=== PATIENT | female | born 1955 | race Caucasian/White ===

== ENCOUNTER 2016-08-17 18:16 | Inpatient (IN) | payer MEDICAID ==
[~2016-08-17] VITALS: Ht 144.8 cm; Wt 73.0 kg
[~2016-08-17 18:16] MED LIST: ARTI99.0 OU; ATOR1TAB19 PO; CALC250T PO; CALCTAB88 PO; ENAL10TA2 PO; FERR325T PO; GABA300C3 PO; HYDR25TAB PO; IRON325T PO; KEFL500C7 PO; MELO7.5T6 PO; METF1000 PO; PANT20TA PO; PERC5TAB6 PO; POTA10TAB PO; PRAV40TA2 PO; TYLE650T25 PO; VITA-122 PO; [UNRECOGNIZED DRUG - CODE] PO
[2016-08-17] MEDS ORDERED: MORPHINE 4 MG/ML 1ML SYRINGE As Ordered ONE ×2 (18:35→21:18)
[2016-08-17] MEDS ORDERED: ONDANSETRON 4MG/2ML VIAL (J2405) As Ordered ONE (18:35)
[2016-08-17 18:36] LABS: BASO % 0.3 % (0.0-1.0); EOS # 0.1 K/mm3 (0.0-0.50); EOS % 1.2 % (0.0-3.0); LARGE UNSTAINED CELL # 0.2 K/mm3 (0.0-0.4); LYMPH # 1.1 K/mm3 (1.5-4.5); LYMPH % 10.9 % (24.0-44.0); MEAN CORPUSCULAR HEMOGLOBIN 30.5 pg (27.0-33.0); MEAN CORPUSCULAR HGB CONC 34.9 g/dl (32.0-36.5); MEAN CORPUSCULAR VOLUME 87.3 fl (80.0-96.0); MONO # 0.3 K/mm3 (0.0-0.8); MONO % 2.8 % (0.0-5.0); NEUTROPHILS # 8.1 K/mm3 (1.8-7.7); NEUTROPHILS % 82.9 % (36.0-66.0); PLATELET COUNT, AUTOMATED 287 k/mm3 (150-450); RED CELL DISTRIBUTION WIDTH 14.2 % (11.5-14.5); WHITE BLOOD COUNT 9.8 K/mm3 (4.0-10.0)
[2016-08-17 18:43] LABS: INR 0.94
[2016-08-17 19:00] LABS: ALBUMIN 4.1 GM/DL (3.2-5.2); ALBUMIN/GLOBULIN RATIO 1.58 (1.00-1.93); ALKALINE PHOSPHATASE 86 U/L (45-117); ALT/SGPT 22 U/L (12-78); AMYLASE 43 U/L (25-115); ANION GAP 15 MEQ/L (8-16); AST/SGOT 15 U/L (15-37); BILIRUBIN,DIRECT 0.2 MG/DL (0.0-0.2); BILIRUBIN,TOTAL 0.8 MG/DL (0.2-1.0); BLOOD UREA NITROGEN 15 MG/DL (7-18); CALCIUM LEVEL 9.1 MG/DL (8.8-10.2); CARBON DIOXIDE LEVEL 24 MEQ/L (21-32); CHLORIDE LEVEL 101 MEQ/L (98-107); CREATININE FOR GFR 0.83 MG/DL (0.55-1.02); GLOMERULAR FILTRATION RATE > 60.0 (>45); GLUCOSE, FASTING 167 MG/DL (80-110); POTASSIUM SERUM 4.1 MEQ/L (3.5-5.1); SODIUM LEVEL 140 MEQ/L (136-145); TOTAL PROTEIN 6.7 GM/DL (6.4-8.2)
--- NOTE | 2016-08-17 19:28 | REP ---
Clinical: Epigastric and abdominal pain. Technique: Upright view of the chest with supine and upright views of the abdomen and pelvis. Findings: Frontal upright view of the chest demonstrates no acute cardiopulmonary process or free air below the diaphragm to suspect pneumoperitoneum. Supine and upright views of the abdomen and pelvis demonstrate nonspecific bowel gas pattern without obstruction or perforation. No organomegaly. Calcifications suggesting nephrolithiasis. Skeletal structures normal for age. Impression: Nonspecific bowel gas pattern. Nephrolithiasis. Signed by Charlie Ugarte MD 08/17/2016 07:19 P
[2016-08-17] MEDS ORDERED: GASTROGRAFIN SOLUTION 30ML (Q9963) As Ordered ONE (20:10)
[2016-08-17] MEDS ORDERED: ISOVUE-370 76% 100ML VIAL (Q9967) As Ordered ONE (21:50)
--- NOTE | 2016-08-17 23:20 | REPUSA ---
CLINICAL HISTORY: Abdominal pain. TECHNIQUE: CT abdomen and pelvis following administration of IV contrast. COMPARISON: July 18, 2016. CT ABDOMEN WITH CONTRAST: Lung bases: No lung base infiltrate or effusion. Liver: No intrahepatic ductal dilation. Gallbladder: Normally distended. Pancreas: No pancreatic duct dilation. Bowel loops: Several loops of small bowel in the right midabdomen on axial images 73-95, are mildly d ilated at 3.2 cm, with adjacent ascites, suggesting ileus. However, the etiology of the inflammatory change is uncertain. Spleen: Normal size. Adrenals: Normal size. Kidneys: There are nonobstructive stones of both kidneys . There is no hydronephrosis bilaterally. Aorta: Normal caliber. Peritoneum: No free air. CT PELVIS WITH CONTRAST: Colon: Multiple colonic diverticula without evidence of diverticulitis. Appendix: Normal appendix is seen. Bladder: Normally distended. Pelvic organs: Unremarkable. Peritoneum: No fluid. Skeleton: No acute findings. IMPRESSION: 1. Ileus versus partial small bowel obstruction within the distal small bowel loops of the right abdo men, possibly due to inflammatory bowel disease or other inflammatory etiologies. There is mild assoc iated ascites. Similar findings were described on the July 18 exam. 2. Bilateral nephrolithiasis without hydronephrosis.
[2016-08-18] MEDS ORDERED: HYDROmorphone HCL 1 MG/ML SYRINGE (J1170) As Ordered ONE (00:09)
[2016-08-18] MEDS ORDERED: CIPROFLOXACIN 400 MG in APPROPRIATE DILUENT 1 EA IV SCH (01:45)
--- NOTE | 2016-08-18 01:51 | HPEPDOC ---
General Date of Admission 08/18/16 Chief Complaint The patient is a 60-year-old female admitted with a reason for visit of Abd Pain. History of Present Illness This is a 60-year-old female with past medical history of anemia, arthritis, diabetes mellitus, dyslipidemia, hypertension, kidney stones, small bowel obstruction is here with abdominal pain with nausea. Patient was recently admitted about a week ago for partial small bowel obstruction. Patient did not require any surgical intervention at the time, NG tube was placed initially and later patient tolerated the diet well and was discharged. T his time patient comes with the similar complaints of abdominal pain along with nausea IN her RUQ, colicky in nature and same as before. pain is constant for about 16 hours but for the last few hours is been getting worse. Patient is able to tolerate water however she has not eaten anything for 16 hours. No fever or chills. No diarrhea. Patient does move gas and had a regular bowel movement yesterday. Denies any fever or chills. Home Medications Scheduled (Calcium Citrate + 315-200 mg-Unit) 1 Tab Tab 2 TAB PO BID (Reported) Atorvastatin Calcium (Atorvastatin Calcium) 10 Mg Tab 10 MG PO QHS (Reported) Cholecalciferol (Vitamin D3) 1,000 Unit Tab 1,000 UNIT PO DAILY (Reported) Cimicifuga [place] (Black Coh (Remifemin) 20 Mg Tab 20 MG PO BID (Reported) Enalapril Maleate (Enalapril Maleate) 10 Mg Tab 10 MG PO DAILY (Reported) Ferrous Sulfate (Ferrous Sulfate) 325 Mg Tab 325 MG PO BID (Reported) Gabapentin (Gabapentin) 300 Mg Cap 300 MG PO TID (Reported) Hydrochlorothiazide (Hydrochlorothiazide) 25 Mg Tab 25 MG PO DAILY (Reported) Meloxicam (Meloxicam) 7.5 Mg Tab 7.5 MG PO DAILY (Reported) Metformin Hydrochloride (Metformin HCl) 1,000 Mg Tab 1,000 MG PO BID (Reported ) Pantoprazole Sodium (Pantoprazole Sodium) 20 Mg Tab 20 MG PO DAILY (Reported) Potassium Citrate (Potassium Citrate 10MEQ (Urocit-K)) 1,080 Mg Tab 1,080 MG PO TID (Reported) 1080MG = 10MEQ Allergies Coded Allergies: Ciprofloxacin (Verified Allergy, Unknown, 08/17/16) Rash Diazepam (Unverified Allergy, Unknown, Aggitation/Anxiousness, 08/17/16) Rofecoxib (Verified Allergy, Unknown, patient doesn't remember reaction, ) Tomato (Unverified Allergy, Unknown, 07/18/16) Indomethacin (Verified Adverse Reaction, Intermediate, increased blood pressure, 11/22/15) Past Medical History Medical History anemia, arthritis, diabetes mellitus, dyslipidemia, hypertension, kidney stones , small bowel obstruction is here with abdominal pain with nausea. Surgical History kidney stone removal. Family History Significant Family History: No pertinent family hx Social History * Smoker: non-smoker Alcohol: denies Drugs: denies Recent Travel/Sick Contacts: Denies: Recent sick contacts, Recent travel Psychosocial History: No pertinent psych hx Review of Symptoms Constitutional: Denies: Chills, Fatigue, Fever, Lethargy, Malaise, Night Sweats , Other, Weakness, Weight Loss Eyes: Denies: Conjunctivae inflammation, Eyelid inflammation, Other, Pain, Redness, Vision change ENT: Denies: Dysphagia, Ear Pain, Epistaxis, Head Aches, Other Symptoms, Post Nasal Drip, Sinus Congestion, Sore Throat Skin: Denies: Breakdown, Bruising, Dry, Itching, Jaundice, Lesions, Nail Changes, Other, Rash Pulmonary: Denies: Cough, Dyspnea, Other Symptoms, Pleuritic Chest Pain Cardiovascular: Denies: Chest Pain, Edema, Lt Headedness, Orthopnea, Other Symptoms, Palpitations, Paroxysmal Noc. Dyspnea Gastrointestinal: Reports: Abdominal Pain, Nausea Genitourinary: Denies: Dysuria, Frequency, Hematuria, Incontinence, Other Symptoms, Retention Endocrine: Denies: Cold Intolerance, Heat Intolerance, Other Endocrine Sx, Polydipsia, Polyphagia, Polyuria Musculoskeletal: Denies: Arm Pain, Back Pain, Foot Pain, Hand Pain, Joint Pain , Leg Pain, Muscle Pain, Neck Pain, Other Symptoms, Shoulder Pain, Spasms Physical Examination Eye Exam: Negative: Conjunctiva & lids normal, EOMI, Other Eye Symptoms, PERRLA , Ptosis, Sclera icteric ENT Exam: Negative: Atraumatic, Ext Auditory Canal Nml, Mucous membr. moist/ pink, Nares Patent, Other ENT, Pharyngeal Edema, Pharynx Normal, Pinna Normal, Tongue Midline, Tympanic Membranes Normal Neck Exam: Negative: +2 carotid pulse wo bruit, JVD, Lymphadenopathy, Other, Supple, thyromegaly Chest Exam: Negative: Clear to auscultation, Diminished, Normal air movement, Other, Rales, Rhonchi, Wheezing Heart Exam: Negative: Bradycardic, Gallops, Irregular Rhythm, Murmurs, Normal S1, Normal S2, Other, Rate Normal, Regular Rhythm, Rubs, Tachycardic Telemetry: Negative: AV Block, Asystole, Atrial fibrillation, Bradycardia, No significant arrhythmia, Other Telemetry:, PACs, PVCs, Pause, SV Tach, Sinus, Tachycardia Abdomen Exam: Positive: BS Hyperactive, Tenderness Extremity Exam: Negative: Clubbing, Cyanosis, Edema, Normal pulses, Other, Swelling, Tenderness Vital Signs BP: 134/76 P 90 R 20 T 99.7 Laboratory Data Labs 24H Laboratory Tests 2 08/17/16 18:30: Aspartate Amino Transf (AST/SGOT) 15, Alanine Aminotransferase (ALT/SGPT) 22, Alkaline Phosphatase 86, Total Bilirubin 0.8, Direct Bilirubin 0.2, Albumin 4.1 , Albumin/Globulin Ratio 1.58, Amylase Level 43, Anion Gap 15, White Blood Count 9.8, Red Blood Count 3.65L, Hemoglobin 11.1L, Hematocrit 31.9L, Mean Corpuscular Volume 87.3, Mean Corpuscular Hemoglobin 30.5, Mean Corpuscular Hemoglobin Concent 34.9, Red Cell Distribution Width 14.2, Platelet Count 287, Neutrophils (%) (Auto) 82.9H, Lymphocytes (%) (Auto) 10.9L, Monocytes (%) (Auto ) 2.8, Eosinophils (%) (Auto) 1.2, Basophils (%) (Auto) 0.3, Neutrophils # (Auto ) 8.1H, Lymphocytes # (Auto) 1.1L, Monocytes # (Auto) 0.3, Eosinophils # (Auto) 0.1, Basophils # (Auto) 0.0, Calcium Level 9.1, Creatine Kinase MB 2.1, Creatine Kinase MB Relative Index 4.28H, Glomerular Filtration Rate > 60.0, Large Unclassified Cells # 0.2, Large Unclassified Cells % 2.0, Lipase 166, Prothromb Time International Ratio 0.94, Prothrombin Time 12.7, Total Creatine Kinase 49, Total Protein 6.7, Troponin I < 0.02 08/17/16 22:20: Urine Amorphous Sediment , Urine Appearance CLEAR, Urine Color COLORLESS, Urine pH 7.0, Urine Specific [place] 1.011, Urine Protein NEGATIVE, Urine Glucose (UA ) NEGATIVE, Urine Ketones NEGATIVE, Urine Urobilinogen 0.2, Urine Bilirubin NEGATIVE, Urine Leukocyte Esterase NEGATIVE, Urine Bacteria (Auto) NEGATIVE, Urine Blood NEGATIVE, Urine Calcium Carbonate Cryst(Auto) , Urine Calcium Oxalate Cryst (Auto) , Urine Calcium Phosphate Sophia (Auto) , Urine Cellular Casts , Urine Cystine Crystals , Urine Granular Casts (Auto) , Urine Hyaline Casts (Auto) 0, Urine Leucine Crystals , Urine Mucus (Auto) , Urine Nitrite NEGATIVE, Urine Oval Fat Bodies (Auto) , Urine RBC (Auto) 0, Urine Renal Epithelial Cells , Urine Sperm (Auto) , Urine Squamous Epithelial Cells 0, Urine Transitional Epithelial Cells , Urine Trichomonas (Auto) , Urine Triple Phosphate Cryst (Auto) , Urine Tyrosine Crystals , Urine Uric Acid Crystals ( Auto) , Urine WBC (Auto) 0, Urine Waxy Casts (Auto) , Urine Yeast-Like Cells ( Auto) CBC/BMP Laboratory Tests 08/17/16 18:30 Red Blood Count 3.65 L, Mean Corpuscular Volume 87.3, Mean Corpuscular Hemoglobin 30.5, Mean Corpuscular Hemoglobin Concent 34.9, Red Cell Distribution Width 14.2, Neutrophils (%) (Auto) 82.9 H, Lymphocytes (%) (Auto) 10.9 L, Monocytes (%) (Auto) 2.8, Eosinophils (%) (Auto) 1.2, Basophils (%) ( Auto) 0.3, Neutrophils # (Auto) 8.1 H, Lymphocytes # (Auto) 1.1 L, Monocytes # ( Auto) 0.3, Eosinophils # (Auto) 0.1, Basophils # (Auto) 0.0 Microbiology Microbiology 08/17/16 Urine Culture, Received Pending Plan / VTE VTE Prophylaxis Ordered?: Yes Plan Plan 60-year-old female with past medical history of anemia, arthritis, diabetes mellitus, dyslipidemia, hypertension, kidney stones, small bowel obstruction is here with abdominal pain with nausea. Partial small bowel obstruction - At this time patient does not need NG tube placement given that the pain is relieved and no nausea. - will obtain abdominal xray now - Patient will be seen by surgery tomorrow Dr. Main. - Nothing by mouth for now. - NS at 70 cc/hr. - will start her on ceftriaxone and Flagyl for colitis. HTN: - holding HCTZ since the patient is on fluids - monitor closely her BP and pain control. DM: - will check A1c and hold metformin for now. - if A1c is elevated then consider sliding scale. DVT: heparin subq RAÚL SCHAEFFER MD Aug 18, 2016 01:51
--- NOTE | 2016-08-18 02:28 | EDDOCDS ---
Physician Documentation [facility] Name: Briseyda Cheng Age: 60 yrs Sex: Female : 1955 Arrival Date: 08/17/2016 Time: 18:16 Bed 14 Private MD: Disposition: 08/18/16 00:15 Hospitalization ordered by Ace To for Inpatient Admission. Preliminary diagnosis is Ileus, unspecified. - Bed requested for 4 [place]. - Status is Inpatient Admission. jp6 - Condition is Stable. - Problem is an ongoing problem. - Symptoms are unchanged. Historical: - Allergies: Cipro PO; Indocin; Tomato (Solanum Lycopersicum); Valium; Vioxx; Seasonal allergies; - Home Meds: 1. Vitamin D3 oral oral 800 unit daily 2. enalapril maleate 10 mg Oral tab 1 tab once daily 3. metformin 1,000 mg Oral tab 1 tab 2 times per day 4. hydrochlorothiazide 25 mg Oral tab 1 tab once daily 5. Calcium Citrate 630 mg Oral twice a day 6. Iron CR 650 Oral daily 7. meloxicam 7.5 mg oral tab 1 tab once daily 8. atorvastatin 10 mg oral tab 1 tab once daily 9. gabapentin 300 mg Oral cap 3 times per day 10. potassium citrate 10 mEq (1,080 mg) oral TbER 3 times per day 11. pantoprazole 40 mg oral TbEC 1 tab once daily - PMHx: Anemia; Arthritis; CHF; Colitis; Diabetes - NIDDM: controlled; Diverticulitis; Hypercholesterolemia; Hypertension; Kidney stones; low magnesium; Twisted bowel; Small bowel obstruction; - PSHx: ; Kidney stone removal; - Social history: Smoking status: Patient states former smoker of tobacco. No barriers to communication noted, The patient speaks fluent Algerian, Speaks appropriately for age. - Family history: Not pertinent. - : The pt / caregiver states he / she is not on anticoagulants. Home medication list is obtained from the patient. - Exposure Risk Screening:: None identified. Vital Signs: 08/17 18:24 BP 189 / 97 LA Sitting (auto/lg); Pulse 90; Resp 20; Temp 99.7(O); Pulse Ox 97% on R/A; rs6 Weight 72.57 kg / 159.99 lbs (R); Height 4 ft. 9 in. (144.78 cm) (R); Pain 10/10; 19:03 BP 134 / 76 (auto/); ttb 19:04 Pulse 86 MON; Pulse Ox 95% ; ttb 19:06 BP 139 / 84 (auto/); ttb 19:07 Pulse 86 MON; Resp 18; Pulse Ox 96% on R/A; ttb 19:21 BP 140 / 76 (auto/); ttb 19:21 Pulse 88 MON; Pulse Ox 95% ; ttb 19:36 BP 143 / 79 (auto/); ttb 19:37 Pulse 90 MON; Pulse Ox 94% ; ttb 19:51 BP 132 / 69 (auto/); ttb 19:51 Pulse 88 MON; Pulse Ox 93% ; ttb 20:06 BP 144 / 75 (auto/); ttb 20:07 Pulse 90 MON; Resp 18; Pulse Ox 94% on R/A; Pain 5/10; ttb 20:30 Pulse 96 MON; Pulse Ox 96% ; ttb 21:00 Pulse 92 MON; Pulse Ox 96% on R/A; ttb 21:27 BP 144 / 83 (auto/); ttb 21:29 Pulse 90 MON; Pulse Ox 95% ; ttb 22:18 BP 144 / 79 (auto/); ttb 22:20 Pulse 92 MON; Resp 18 S; Pulse Ox 95% on R/A; ttb 08/18 00:46 BP 147 / 76 (auto/); jp6 00:46 Pulse 98 MON; Pulse Ox 84% ; jp6 00:49 BP 147 / 76; Pulse 96; Resp 16; Pulse Ox 97% ; Pain 2/10; [facility] 08/17 18:24 Body Mass Index 34.62 (72.57 kg, 144.78 cm) rs6 MDM: 08/17 18:22 Undress patient appropriately for examination ordered. sd1 18:23 NS 0.9% 1000 ml IV at 100 mL/hr continuous ordered. sd1 18:23 Ondansetron 4 mg IVP once ordered. sd1 18:23 morphine 4 mg IVP every 15 minutes; Document pain score/vitals after each dose (Hold if sd1 SBP < 90mmHg) x2 ordered. 18:23 Abdomen, Flat\E\Upright,PA Chest Ordered. EDMS 18:23 Amylase Ordered. EDMS 18:23 Basic Metabolic Profile Ordered. EDMS 18:23 CBC with Diff Ordered. EDMS 18:23 Lipase Ordered. EDMS 18:23 Liver Profile Ordered. EDMS 18:23 Prothrombin Time Profile\E\INR Ordered. EDMS 18:23 NOTHING BY MOUTH+DIET ordered. EDMS 18:24 ECG WITH READING ER PHYS+CARDIAG ordered. EDMS 18:25 BED REQUEST+ADM ordered. EDMS 18:39 CIP Ordered. EDMS 18:39 Troponin Ordered. EDMS 19:03 Basic Metabolic Profile Reviewed. sd1 19:03 CBC with Diff Reviewed. sd1 19:03 CIP Reviewed. sd1 19:03 Amylase Reviewed. sd1 19:03 Lipase Reviewed. sd1 19:03 Liver Profile Reviewed. sd1 19:03 Prothrombin Time Profile\E\INR Reviewed. sd1 19:03 Troponin Reviewed. sd1 19:52 Financial registration complete. gb 19:58 [facility] Payment Agreement was scanned into [employer] and attached to record. gb 20:02 NS 0.9% 1000 ml IV at bolus once ordered. cs11 20:04 CT ABD & PELVIS: IV and Oral Contrast Ordered. EDMS 20:16 Diatrizoate Meglumine & Sodium Liquid 10 ml PO once; mix in 290cc of water : 2024 ttb ordered. 20:16 Diatrizoate Meglumine & Sodium Liquid 10 ml PO once; mix in 290cc of water : 2054 ttb ordered. 21:21 Urinalysis Ordered. EDMS 21:21 Urine Culture Ordered. EDMS / 00:05 Dilaudid - HYDROmorphone 0.5 mg IVP once ordered. cs11 00:36 Urinalysis Reviewed. cs11 00:36 Abdomen, Flat\E\Upright,PA Chest Reviewed. cs11 00:36 CT ABD & PELVIS: IV and Oral Contrast Reviewed. cs11 01:40 Admission / Observation Status ordered. EDMS 01:40 NPO DIET ordered. EDMS 01:40 BASIC METABOLIC PROFILE Ordered. EDMS 01:40 CBC WITH DIFFERENTIAL Ordered. EDMS 01:41 Abdomen,Flat Plate KUB Ordered. EDMS 01:42 LACTIC ACID LEVEL, LACTATE Ordered. EDMS 01:51 HEMOGLOBIN A1C Ordered. EDMS Administered Medications: 08/17 18:43 Drug: morphine 4 mg Route: IVP; Site: left antecubital; [facility] 19:00 Follow up: Response: No Adverse Reaction; Pain is decreased ttb 18:45 Drug: Ondansetron 4 mg Route: IVP; Site: left antecubital; [facility] 18:46 Drug: NS 0.9% 1000 ml Route: IV; Rate: 100 mL/hr; Site: left antecubital; [facility] 20:05 Drug: NS 0.9% 1000 ml [sodium chloride 0.9 % intravenous solution] Route: IV; Rate: ttb bolus; Site: left antecubital; 20:17 Drug: Diatrizoate Meglumine & Sodium 10 ml [diatrizoate meglumine and diat.sodium 66 ttb %-10 % oral solution (10 mL)] Route: PO; 20:51 Drug: Diatrizoate Meglumine & Sodium 10 ml [diatrizoate meglumine and diat.sodium 66 ttb %-10 % oral solution (10 mL)] Route: PO; 21:29 Drug: morphine 4 mg Route: IVP; Site: left antecubital; ttb 22:00 Follow up: Response: Confirmed pt not driving.; No Adverse Reaction; Pain is decreased ttb 08/18 00:20 Drug: Dilaudid - HYDROmorphone 0.5 mg [hydromorphone 1 mg/mL injection syringe (0.5 cjh mL)] Route: IVP; Site: left antecubital; 00:49 Follow up: BP 147 / 76; Pulse 96 bpm; Resp 16 bpm; Pulse Ox 97% ; Pain 09/27 Adult; [facility] Response: No Adverse Reaction; Pain is decreased; 09/27 Signatures: Dispatcher [employer] Elaine Osorio MD MD sd1 Shelbie Mims RN RN daq Margie Lilly, Reg Reg gb Isamar WalkerRN RN [email or web address] Hardeep Herrera DO DO cs11 Anisha Venegas RN RN Anai France RN RN [email or web address] Sandra Garcia RN [facility] The chart was reviewed and I authenticate all verbal orders and agree with the evaluation and treatment provided.Attachments: 08/17 19:58 [facility] Payment Agreement gb [email or web address]
--- NOTE | 2016-08-18 02:28 | EDDOCDS ---
Nurse's Notes [facility] Name: Briseyda Cheng Age: 60 yrs Sex: Female : 1955 Arrival Date: 08/17/2016 Time: 18:16 Bed 14 Private MD: Diagnosis: Ileus, unspecified Presentation: 08/17 18:22 Presenting complaint: Patient states: Abdominal pain starting approximately 3 hours ld5 ago. Increasing in severity since. + nausea. History of twisted bowel and SBO. Suicide/Homicide risk assessment- the patient denies having any suicidal and/or homicidal ideations and does not present with any other emotional, behavioral or mental health complaints. Status: Patient is not a community service officer coordinator or dependent. Transition of care: patient was not received from another setting of care. 18:22 Acuity: LG Level 3 ld5 18:22 Method Of Arrival: Ambulance ld5 08/18 01:51 Adult Sepsis Screening: The patient does not have new or worsening altered mentation. jp6 Patient's respiratory rate is less than 22. Systolic blood pressure is greater than 100. Patient has a qSOFA score of 0- Negative Sepsis Screen. Triage Assessment: 08/17 18:30 General: Appears uncomfortable. Pain: Location: right upper quadrant and left upper ld5 quadrant Pain currently is 10 out of 10 on a pain scale. Pain does not radiate. Quality of pain is described as sharp, stabbing, Pain began 3 hours ago Is intermittent Noted to be grimacing, moaning. HIV screening NA for this visit Offered previously. Neurological: Level of Consciousness is awake, obeys commands. Respiratory: Airway is patent Respiratory effort is even, unlabored. GI: Abdomen is non- distended Reports upper abdominal pain, nausea. Derm: Skin is intact, Skin is clammy, Skin is pale. Historical: - Allergies: Cipro PO; Indocin; Tomato (Solanum Lycopersicum); Valium; Vioxx; Seasonal allergies; - Home Meds: 1. Vitamin D3 oral oral 800 unit daily 2. enalapril maleate 10 mg Oral tab 1 tab once daily 3. metformin 1,000 mg Oral tab 1 tab 2 times per day 4. hydrochlorothiazide 25 mg Oral tab 1 tab once daily 5. Calcium Citrate 630 mg Oral twice a day 6. Iron CR 650 Oral daily 7. meloxicam 7.5 mg oral tab 1 tab once daily 8. atorvastatin 10 mg oral tab 1 tab once daily 9. gabapentin 300 mg Oral cap 3 times per day 10. potassium citrate 10 mEq (1,080 mg) oral TbER 3 times per day 11. pantoprazole 40 mg oral TbEC 1 tab once daily - PMHx: Anemia; Arthritis; CHF; Colitis; Diabetes - NIDDM: controlled; Diverticulitis; Hypercholesterolemia; Hypertension; Kidney stones; low magnesium; Twisted bowel; Small bowel obstruction; - PSHx: ; Kidney stone removal; - Social history: Smoking status: Patient states former smoker of tobacco. No barriers to communication noted, The patient speaks fluent Hungarian, Speaks appropriately for age. - Family history: Not pertinent. - : The pt / caregiver states he / she is not on anticoagulants. Home medication list is obtained from the patient. - Exposure Risk Screening:: None identified. Screenin:44 Screening information is obtained from the patient. Fall risk: No risks identified. ttb Assistance ADL's: requires no assistance with activities of daily living. Abuse/DV Screen: The patient / caregiver reports he/she is: not in a situation that causes fear, pain or injury. Nutritional screening: No deficits noted. Advance Directives: Currently, there is no health care proxy. home support is adequate. Assessment: 18:44 General: Appears distressed, uncomfortable, well nourished, well groomed, Behavior is ttb appropriate for age, cooperative, pleasant. Pain: Location: upper abd. Neurological: Level of Consciousness is awake, alert, Oriented to person, place, time, Speech is normal. Cardiovascular: Heart tones S1 S2 present Rhythm is sinus tachycardia Chest pain is denied. Respiratory: No deficits noted. Airway is patent Respiratory effort is even, unlabored, Breath sounds are clear bilaterally. Denies cough, shortness of breath. GI: Abdomen is non- distended obese, Last BM was August 17, 2016. Bowel sounds present X 4 quads. Abd is soft X 4 quads Abd is tender to palpation in epigastric area, right upper quadrant and left upper quadrant Reports upper abdominal pain, nausea, vomiting. : Denies burning with urination, urinary frequency, urgency. Derm: Skin is normal. Injury Description: No known injury. 19:00 Reassessment: Patient appears in no apparent distress at this time. Patient states ttb feeling better. pt states she feels better. Pain improved. Denies need for more morphine at this time. Son at bedside.. Adult Sepsis Screening: The patient does not have new or worsening altered mentation. Patient's respiratory rate is less than 22. Systolic blood pressure is greater than 100. Patient has a qSOFA score of 0- Negative Sepsis Screen. 20:00 Reassessment: Patient appears in no apparent distress at this time. Patient states ttb feeling better. Patient states symptoms have improved. pt denies nausea at this time. Denies need for pain meds. Pt awaiting CT. Son at bedside. NSR on monitor.. 20:00 Neurological: Level of Consciousness is awake, alert. ttb 20:45 General: Appears in no apparent distress, comfortable, pt resting on stretcher. Denies ttb need for pain meds at this time. States soon as pain is slowly increasing. Pt awaiting CT.. 20:45 Respiratory: No deficits noted. Airway is patent Respiratory effort is even, unlabored. ttb GI: Denies nausea, vomiting. 21:19 Reassessment: Patient appears in no apparent distress at this time. pt states abd pain ttb returning. Pt requests morphine at this time. Pt able to ambulate with steady gait. Denies dizziness. Pt awaiting CT. Tolerated oral contrast well. Denies nausea.. 22:08 General: pt taken to CT. NAD noted. Pt given metformin information sheet. States ttb understanding. . 22:40 Reassessment: Patient appears in no apparent distress at this time. Patient states ttb feeling better. Patient states symptoms have improved. Pain improved after morphine. Pt awaiting results. Son at bedside. NAD noted.. Neurological: Level of Consciousness is awake, alert. Cardiovascular: Chest pain is denied. Respiratory: No deficits noted. Airway is patent. GI: Denies nausea, vomiting. Derm: Skin is normal. Musculoskeletal: Range of motion intact in all extremities. 22:46 General: report given to next Sandra SILVER to continue care. . ttb 23:53 General: Appears in no apparent distress, comfortable, Behavior is appropriate for age, h cooperative, family at bedside, patient reports intermittent pain persists, appears comfortable at this time and is awaiting results. 08/18 00:49 General: pain 2/10, "tolerable" after medication. No visible distress, denies other [facility] needs at this time, awaiting admission. 01:38 Reassessment: Patient appears in no apparent distress at this time. Patient denies pain jp6 at this time. General: Appears comfortable, Behavior is appropriate for age, cooperative. Pain: Denies pain. Neurological: Level of Consciousness is awake, alert, Oriented to person, place, time. Cardiovascular: Capillary refill < 3 seconds. Respiratory: Airway is patent Respiratory effort is even, unlabored, Respiratory pattern is regular, symmetrical. GI: Abdomen is distended, Bowel sounds present X 4 quads. : No deficits noted. Derm: Skin is normal. Musculoskeletal: Range of motion intact in all extremities. Vital Signs: 08/17 18:24 BP 189 / 97 LA Sitting (auto/lg); Pulse 90; Resp 20; Temp 99.7(O); Pulse Ox 97% on R/A; rs6 Weight 72.57 kg (R); Height 4 ft. 9 in. (144.78 cm) (R); Pain 10/10; 19:03 BP 134 / 76 (auto/); ttb 19:04 Pulse 86 MON; Pulse Ox 95% ; ttb 19:06 BP 139 / 84 (auto/); ttb 19:07 Pulse 86 MON; Resp 18; Pulse Ox 96% on R/A; ttb 19:21 BP 140 / 76 (auto/); ttb 19:21 Pulse 88 MON; Pulse Ox 95% ; ttb 19:36 BP 143 / 79 (auto/); ttb 19:37 Pulse 90 MON; Pulse Ox 94% ; ttb 19:51 BP 132 / 69 (auto/); ttb 19:51 Pulse 88 MON; Pulse Ox 93% ; ttb 20:06 BP 144 / 75 (auto/); ttb 20:07 Pulse 90 MON; Resp 18; Pulse Ox 94% on R/A; Pain 5/10; ttb 20:30 Pulse 96 MON; Pulse Ox 96% ; ttb 21:00 Pulse 92 MON; Pulse Ox 96% on R/A; ttb 21:27 BP 144 / 83 (auto/); ttb 21:29 Pulse 90 MON; Pulse Ox 95% ; ttb 22:18 BP 144 / 79 (auto/); ttb 22:20 Pulse 92 MON; Resp 18 S; Pulse Ox 95% on R/A; ttb 08/18 00:46 BP 147 / 76 (auto/); jp6 00:46 Pulse 98 MON; Pulse Ox 84% ; jp6 00:49 BP 147 / 76; Pulse 96; Resp 16; Pulse Ox 97% ; Pain 2/10; [facility] 08/17 18:24 Body Mass Index 34.62 (72.57 kg, 144.78 cm) rs6 Vitals: 08/17 18:24 Log In Time N/A - ambulance arrival. rs6 ED Course: 18:18 Patient visited by Georgiana Bledsoe, Teletypesetter. deg 18:18 Patient moved to Waiting deg 18:18 Patient moved to 14 deg 18:19 Elaine English MD is Attending Physician. sd1 18:19 Patient visited by Elaine English MD. sd1 18:24 Triage Initiated ld5 18:24 Pt greeted and oriented to ED. Patient advised of names of staff involved in care, rs6 location of call farris, wait times and NPO status. Patient has correct armband on for positive identification. Placed in gown. Bed in low position. Call light in reach. Side rails up X2. clinical research monitor on. Pulse ox on. NIBP on. 18:25 Patient visited by Gwen Perdomo PCA. rs6 18:32 Patient visited by Isamar Walker RN. ld5 18:33 Amylase Sent. [facility] 18:33 Basic Metabolic Profile Sent. [facility] 18:33 CBC with Diff Sent. [facility] 18:33 Lipase Sent. [facility] 18:33 Liver Profile Sent. [facility] 18:33 Prothrombin Time Profile\\E\\INR Sent. [facility] 18:39 Patient visited by Gwen Perdomo PCA. rs6 18:39 EKG done. (by ED staff). Reviewed by Elaine English MD. rs6 18:44 The patient / caregiver is instructed regarding the plan of care and ED course. ttb 18:46 Inserted saline lock: 20 gauge in left antecubital area and blood collected. The [facility] patient tolerated the procedure well. Labs drawn. (by ED staff). Sent per order to lab. 18:47 Patient visited by Anisha Venegas RN. ttb 19:14 Patient visited by Anisha Venegas RN. ttb 19:36 Attending Physician role handed off by Elaine English MD cs11 19:36 Hardeep Herrera DO is Attending Physician. cs11 19:58 [facility] Payment Agreement was scanned into [employer] and attached to record. gb 20:02 Abdomen, Flat\\E\\Upright,PA Chest Returned. EDMS 20:04 Patient visited by Anisha Venegas RN. ttb 20:18 Patient visited by Anisha Venegas RN. ttb 21:21 Patient visited by Anisha Venegas RN. ttb 22:08 Patient visited by Anisha Venegas RN. ttb 22:08 Patient visited by Anisha Venegas RN. ttb 22:46 Patient visited by Anisha Venegas RN. ttb 23:21 Patient visited by Sandra Garcia RN. cj 23:40 CT ABD & PELVIS: IV and Oral Contrast Returned. EDMS 23:53 No procedures done that require assistance. [facility] 08/18 00:14 Ace To MD is Hospitalizing Provider. cs11 01:12 Anai De Paz,ADRIANNE is Primary Nurse. jp6 Administered Medications: 08/17 18:43 Drug: morphine 4 mg Route: IVP; Site: left antecubital; [facility] 19:00 Follow up: Response: No Adverse Reaction; Pain is decreased ttb 18:45 Drug: Ondansetron 4 mg Route: IVP; Site: left antecubital; [facility] 18:46 Drug: NS 0.9% 1000 ml Route: IV; Rate: 100 mL/hr; Site: left antecubital; [facility] 20:05 Drug: NS 0.9% 1000 ml [sodium chloride 0.9 % intravenous solution] Route: IV; Rate: ttb bolus; Site: left antecubital; 20:17 Drug: Diatrizoate Meglumine & Sodium 10 ml [diatrizoate meglumine and diat.sodium 66 ttb %-10 % oral solution (10 mL)] Route: PO; 20:51 Drug: Diatrizoate Meglumine & Sodium 10 ml [diatrizoate meglumine and diat.sodium 66 ttb %-10 % oral solution (10 mL)] Route: PO; 21:29 Drug: morphine 4 mg Route: IVP; Site: left antecubital; ttb 22:00 Follow up: Response: Confirmed pt not driving.; No Adverse Reaction; Pain is decreased ttb 08/18 00:20 Drug: Dilaudid - HYDROmorphone 0.5 mg [hydromorphone 1 mg/mL injection syringe (0.5 cjh mL)] Route: IVP; Site: left antecubital; 00:49 Follow up: BP 147 / 76; Pulse 96 bpm; Resp 16 bpm; Pulse Ox 97% ; Pain 09/27 Adult; cjh Response: No Adverse Reaction; Pain is decreased; 09/27 Intake: Order Results: Lab Order: Amylase; SPEC'M 08/17/16 18:30 Test: AMYLASE; Value: 43; Range: 25-115; Units: U/L; Status: F Lab Order: Basic Metabolic Profile; SPEC'M 08/17/16 18:30 Test: GLUCOSE, FASTING; Value: 167; Range: 80-110; Abnormal: Above high normal; Units: MG/DL; Status: F Test: BLOOD UREA NITROGEN; Value: 15; Range: 7-18; Units: MG/DL; Status: F Test: CREATININE FOR GFR; Value: 0.83; Range: 0.55-1.02; Units: MG/DL; Status: F Test: GLOMERULAR FILTRATION RATE; Value: > 60.0; Range: >45; Status: F Test: SODIUM LEVEL; Value: 140; Range: 136-145; Units: MEQ/L; Status: F Test: POTASSIUM SERUM; Value: 4.1; Range: 3.5-5.1; Units: MEQ/L; Status: F Test: CHLORIDE LEVEL; Value: 101; Range: 98-107; Units: MEQ/L; Status: F Test: CARBON DIOXIDE LEVEL; Value: 24; Range: 21-32; Units: MEQ/L; Status: F Test: ANION GAP; Value: 15; Range: 8-16; Units: MEQ/L; Status: F Test: CALCIUM LEVEL; Value: 9.1; Range: 8.8-10.2; Units: MG/DL; Status: F Test Note: ; Units are mL/min/1.73 m2 Chronic Kidney Disease Staging per NKF: Stage I & II GFR >=60 Normal to Mildly Decreased Stage III GFR 30-59 Moderately Decreased Stage IV GFR 15-29 Severely Decreased Stage V GFR <15 Very Little GFR Left ESRD GFR <15 on [employer] Lab Order: CBC with Diff; SPEC'M 08/17/16 18:30 Test: WHITE BLOOD COUNT; Value: 9.8; Range: 4.0-10.0; Units: K/mm3; Status: F Test: RED BLOOD COUNT; Value: 3.65; Range: 4.00-5.40; Abnormal: Below low normal; Units: M/mm3; Status: F Test: HEMOGLOBIN; Value: 11.1; Range: 12.0-16.0; Abnormal: Below low normal; Units: g/dl; Status: F Test: HEMATOCRIT; Value: 31.9; Range: 36.0-47.0; Abnormal: Below low normal; Units: %; Status: F Test: MEAN CORPUSCULAR VOLUME; Value: 87.3; Range: 80.0-96.0; Units: fl; Status: F Test: MEAN CORPUSCULAR HEMOGLOBIN; Value: 30.5; Range: 27.0-33.0; Units: pg; Status: F Test: MEAN CORPUSCULAR HGB CONC; Value: 34.9; Range: 32.0-36.5; Units: g/dl; Status: F Test: RED CELL DISTRIBUTION WIDTH; Value: 14.2; Range: 11.5-14.5; Units: %; Status: F Test: PLATELET COUNT, AUTOMATED; Value: 287; Range: 150-450; Units: k/mm3; Status: F Test: NEUTROPHILS %; Value: 82.9; Range: 36.0-66.0; Abnormal: Above high normal; Units: %; Status: F Test: LYMPH %; Value: 10.9; Range: 24.0-44.0; Abnormal: Below low normal; Units: %; Status: F Test: MONO %; Value: 2.8; Range: 0.0-5.0; Units: %; Status: F Test: EOS %; Value: 1.2; Range: 0.0-3.0; Units: %; Status: F Test: BASO %; Value: 0.3; Range: 0.0-1.0; Units: %; Status: F Test: LARGE UNSTAINED CELL %; Value: 2.0; Range: 0.0-4.0; Units: %; Status: F Test: NEUTROPHILS #; Value: 8.1; Range: 1.8-7.7; Abnormal: Above high normal; Units: K/mm3; Status: F Test: LYMPH #; Value: 1.1; Range: 1.5-4.5; Abnormal: Below low normal; Units: K/mm3; Status: F Test: MONO #; Value: 0.3; Range: 0.0-0.8; Units: K/mm3; Status: F Test: EOS #; Value: 0.1; Range: 0.0-0.50; Units: K/mm3; Status: F Test: BASO #; Value: 0.0; Range: 0.0-0.2; Units: K/mm3; Status: F Test: LARGE UNSTAINED CELL #; Value: 0.2; Range: 0.0-0.4; Units: K/mm3; Status: F Lab Order: Lipase; [facility] 08/17/16 18:30 Test: LIPASE; Value: 166; Range: 73-393; Units: U/L; Status: F Lab Order: Liver Profile; [facility] 08/17/16 18:30 Test: AST/SGOT; Value: 15; Range: 15-37; Units: U/L; Status: F Test: ALT/SGPT; Value: 22; Range: 12-78; Units: U/L; Status: F Test: ALKALINE PHOSPHATASE; Value: 86; Range: 45-117; Units: U/L; Status: F Test: BILIRUBIN,TOTAL; Value: 0.8; Range: 0.2-1.0; Units: MG/DL; Status: F Test: BILIRUBIN,DIRECT; Value: 0.2; Range: 0.0-0.2; Units: MG/DL; Status: F Test: TOTAL PROTEIN; Value: 6.7; Range: 6.4-8.2; Units: GM/DL; Status: F Test: ALBUMIN; Value: 4.1; Range: 3.2-5.2; Units: GM/DL; Status: F Test: ALBUMIN/GLOBULIN RATIO; Value: 1.58; Range: 1.00-1.93; Status: F Lab Order: Prothrombin Time Profile\\E\\INR; [facility] 08/17/16 18:30 Test: PROTHROMBIN TIME; Value: 12.7; Range: 12.3-14.5; Units: SECONDS; Status: F Test: INR; Value: 0.94; Status: F Test Note: ; THERAPUTIC HUMAN INR VALUES INDICATIONS NORMAL RANGES PROPHYLAXIS/TREATMENT OF: VENOUS THROMBOSIS 2.0-3.0 PULMONARY EMBOLISM 2.0-3.0 PREVENTION OF SYSTEMIC EMBOLISM FROM: TISSUE HEART VALVES 2.0-3.0 ACUTE MYOCARDIAL INFARCTION 2.0-3.0 VALVULAR HEART DISEASE 2.0-3.0 ATRIAL FIBRILLATION 2.0-3.0 MECHANICAL VALVES(HIGH RISK) 2.5-3.5 RECURRENT MYOCARDIAL INFARCTION 2.5-3.5 Lab Order: CIP; [facility] 08/17/16 18:30 Test: CPK CREATINE PHOSPHOKINASE; Value: 49; Range: 26-192; Units: U/L; Status: F Test: CK-MB VALUE MASS; Value: 2.1; Range: 0.0-3.6; Units: NG/ML; Status: F Test: MB/CK RELATIVE INDEX; Value: 4.28; Range: < OR =4; Abnormal: Above high normal; Status: F Test Note: ; DIAGNOSIS CRITERIA MMB ng/ml Relative Index (RI) NON-AMI < or = 5 N/A ANGLIN ZONE > 5 < or = 4 AMI > 5 > 4 Lab Order: Troponin; [facility] 08/17/16 18:30 Test: TROPONIN I; Value: < 0.02; Range: < 0.10; Units: NG/ML; Status: F Test Note: ; Troponin I Reference Interval for Siemens [place] LOCI: 99th Percentile= 0.00-0.045 ng/ml Risk Stratification: <= 0.10 ng/ml Decreased Risk for Adverse Clinical Events. 0.10-1.50 ng/ml Increased Risk for Adverse Clinical Events. Evaluation of additional criterion and/or repeat testing in 2-6 hours is suggested to rule out myocardial damage. >= 1.50 ng/ml Indicative of Myocardial Injury. Lab Order: Urinalysis; [facility] 08/17/16 22:20 Test: APPEARANCE, URINE; Value: CLEAR; Range: CLEAR; Status: F Test: COLOR, URINE; Value: COLORLESS; Range: YELLOW; Status: F Test: PH,URINE; Value: 7.0; Range: 5.0-9.0; Units: UNITS; Status: F Test: SPECIFIC GRAVITY URINE AUTO; Value: 1.011; Range: 1.002-1.035; Status: F Test: PROTEIN, URINE AUTO; Value: NEGATIVE; Range: NEGATIVE; Units: mg/dL; Status: F Test: GLUCOSE, URINE (UA) AUTO; Value: NEGATIVE; Range: NEGATIVE; Units: mg/dL; Status: F Test: KETONE, URINE AUTO; Value: NEGATIVE; Range: NEGATIVE; Units: mg/dL; Status: F Test: UROBILINOGEN, URINE AUTO; Value: 0.2; Range: 0.0-2.0; Units: mg/dL; Status: F Test: BILIRUBIN, URINE AUTO; Value: NEGATIVE; Range: NEGATIVE; Status: F Test: NITRITE, URINE AUTO; Value: NEGATIVE; Range: NEGATIVE; Status: F Test: LEUKOCYTE ESTERASE, URINE AUTO; Value: NEGATIVE; Range: NEGATIVE; Status: F Test: BLOOD, URINE BLOOD; Value: NEGATIVE; Range: NEGATIVE; Status: F Test: WBC, URINE AUTO; Value: 0; Range: 0-3; Units: /HPF; Status: F Test: RBC, URINE AUTO; Value: 0; Range: 0-3; Units: /HPF; Status: F Test: BACTERIA, URINE AUTO; Value: NEGATIVE; Range: NEGATIVE; Status: F Test: SQUAMOUS EPITHELIAL CELL UR AU; Value: 0; Range: 0-6; Units: /HPF; Status: F Test: HYALINE CAST, URINE AUTO; Value: 0; Range: 0-1; Units: /LPF; Status: F Radiology Order: Abdomen, Flat\\E\\Upright,PA Chest Test: Abdomen, Flat\\E\\Upright,PA Chest REASON FOR EXAMINATION: Abdomen Pain; Clinical: Epigastric and abdominal pain.; ; Technique: Upright view of the chest with supine and upright views of the; abdomen and pelvis.; ; Findings: Frontal upright view of the chest demonstrates no acute; cardiopulmonary process or free air below the diaphragm to suspect; pneumoperitoneum. Supine and upright views of the abdomen and pelvis demonstrate; nonspecific bowel gas pattern without obstruction or perforation. No; organomegaly. Calcifications suggesting nephrolithiasis. Skeletal structures; normal for age.; ; Impression:; Nonspecific bowel gas pattern. Nephrolithiasis.; ; ; Signed by; Charlie Ugarte MD 08/17/2016 07:19 P; Radiology Order: CT ABD & PELVIS: IV and Oral Contrast Test: CT ABD & PELVIS: IV and Oral Contrast REASON FOR EXAMINATION: Diverticulitis; ; CLINICAL HISTORY: Abdominal pain.; ; TECHNIQUE: CT abdomen and pelvis following administration of IV contrast.; ; COMPARISON: July 18, 2016.; ; CT ABDOMEN WITH CONTRAST:; Lung bases: No lung base infiltrate or effusion.; Liver: No intrahepatic ductal dilation.; Gallbladder: Normally distended.; Pancreas: No pancreatic duct dilation.; Bowel loops: Several loops of small bowel in the right midabdomen on axial images 73-95, are mildly d; ilated at 3.2 cm, with adjacent ascites, suggesting ileus. However, the etiology of the inflammatory; change is uncertain.; Spleen: Normal size.; Adrenals: Normal size.; Kidneys: There are nonobstructive stones of both kidneys . There is no hydronephrosis bilaterally.; Aorta: Normal caliber.; Peritoneum: No free air.; ; CT PELVIS WITH CONTRAST:; Colon: Multiple colonic diverticula without evidence of diverticulitis.; Appendix: Normal appendix is seen.; Bladder: Normally distended.; Pelvic organs: Unremarkable.; Peritoneum: No fluid.; Skeleton: No acute findings.; ; IMPRESSION:; 1. Ileus versus partial small bowel obstruction within the distal small bowel loops of the right abdo; men, possibly due to inflammatory bowel disease or other inflammatory etiologies. There is mild assoc; iated ascites. Similar findings were described on the July 18 exam.; 2. Bilateral nephrolithiasis without hydronephrosis.; ; Outcome: 08/17 23:53 No special radiology studies were completed. [facility] 08/18 00:15 Decision to Hospitalize by Provider. 11 01:50 Discharge Assessment: Patient awake, alert and oriented x 3. No cognitive and/or jp6 functional deficits noted. Patient verbalized understanding of disposition instructions. patient administered narcotics - yes. Patient was admitted to the hospital or transferred to another facility. The following High Risk Discharge criteria are identified: None. Admitted to Med/Surg accompanied by tech, via stretcher, with chart. Condition: unchanged. Property :Personal belongings accompany Pt. 02:27 Patient left the ED. jp6 Signatures: Dispatcher [employer] EDMS Elaine English MD MD sd1 Georgiana Bledsoe, Teletypesetter Unit deg Vijaya, Margie, Reg Reg gb Isamar Walker,RN RN ld5 Sandra Garcia,RN RN Hardeep Barry, DO cs11 Anisha Venegas, RN RN ttGwen Harrington, JAWBONE PULLER JAWBONE PULLER rs6 Anai De Paz,RN RN jp6 MTDD
[2016-08-18 02:30] VITALS: BP 155/80
[2016-08-18] MEDS: cefTRIAXone SOD 1 GM in D5W MINI-BAG PLUS 50 ML IV SCH (02:46)
[2016-08-18] MEDS: NS 1,000 ML IV SCH ×2 (02:46→17:20)
[2016-08-18] MEDS: ONDANSETRON 4 MG TAB (S0181) PO PRN (02:46)
[2016-08-18] MEDS: metroNIDAZOLE 500 MG in APPROPRIATE DILUENT 1 EA IV SCH ×3 (05:06→21:03)
[2016-08-18] MEDS: HEPARIN SOD (PORCINE) 5000 UNITS/ML VIAL SC SCH ×3 (05:06→21:04)
[2016-08-18] MEDS ORDERED: KETOROLAC 30 MG/ML VIAL (J1885) IV ONE (05:45)
[2016-08-18] MEDS ORDERED: ONDANSETRON 4MG/2ML VIAL (J2405) IV ONE (05:45)
[2016-08-18 06:00] VITALS: BP 151/81
[2016-08-18 06:39] LABS: BASO % 0.3 % (0.0-1.0); EOS # 0.1 K/mm3 (0.0-0.50); LARGE UNSTAINED CELL # 0.2 K/mm3 (0.0-0.4); LARGE UNSTAINED CELL % 2.6 % (0.0-4.0); LYMPH # 1.1 K/mm3 (1.5-4.5); LYMPH % 14.1 % (24.0-44.0); MEAN CORPUSCULAR HEMOGLOBIN 30.4 pg (27.0-33.0); MEAN CORPUSCULAR HGB CONC 34.2 g/dl (32.0-36.5); MONO # 0.3 K/mm3 (0.0-0.8); MONO % 3.7 % (0.0-5.0); NEUTROPHILS # 5.8 K/mm3 (1.8-7.7); NEUTROPHILS % 78.2 % (36.0-66.0); PLATELET COUNT, AUTOMATED 251 k/mm3 (150-450); RED CELL DISTRIBUTION WIDTH 14.4 % (11.5-14.5); WHITE BLOOD COUNT 7.5 K/mm3 (4.0-10.0)
[2016-08-18 06:54] LABS: ANION GAP 9 MEQ/L (8-16); BLOOD UREA NITROGEN 12 MG/DL (7-18); CALCIUM LEVEL 7.8 MG/DL (8.8-10.2); CARBON DIOXIDE LEVEL 28 MEQ/L (21-32); CHLORIDE LEVEL 103 MEQ/L (98-107); CREATININE FOR GFR 0.74 MG/DL (0.55-1.02); GLOMERULAR FILTRATION RATE > 60.0 (>45); GLUCOSE, FASTING 119 MG/DL (80-110); POTASSIUM SERUM 3.7 MEQ/L (3.5-5.1); SODIUM LEVEL 140 MEQ/L (136-145)
[2016-08-18] MEDS: PANTOPRAZOLE 40MG INJ (PROTONIX) (C9113) IV SCH (08:39)
[2016-08-18] MEDS: ENALAPRIL MALEATE 10 MG TAB PO SCH (08:40)
[2016-08-18] MEDS ORDERED: CALCIUM/VITAMIN D 250 MG TABLET PO SCH (09:00)
[2016-08-18] MEDS ORDERED: FERROUS SULFATE 325MG TAB PO SCH (09:00)
[2016-08-18] MEDS ORDERED: ARIPiprazole 2 MG TAB PO SCH (09:00)
[2016-08-18] MEDS ORDERED: PANTOPRAZOLE 20 MG TAB PO SCH (09:00)
[2016-08-18] MEDS ORDERED: GABAPENTIN 300 MG CAP PO SCH (09:00)
[2016-08-18] MEDS ORDERED: VITAMIN D 1,000 INTERNATIONAL UNITS TABLET PO SCH (09:00)
--- NOTE | 2016-08-18 10:25 | ECGEPIP ---
Stationary ECG Study [facility] - ED Test Date: 2016-08-17 Pat Name: WES LEW Department: Room: [place] [address] Gender: F Nurse Obgyn: deonte : 1955 Requested By: Elaine English Order Number: [id number] Reading MD: Ricardo Poole Measurements Intervals [place] Rate: 86 P: 35 GA: 153 QRS: -8 QRSD: 81 T: -2 QT: 362 QTc: 434 Interpretive Statements SINUS RHYTHM NSTTW ABNORMALITIES Electronically Signed On 08-18-2016 10:25:04 EST by Ricardo Poole
--- NOTE | 2016-08-18 10:33 | REP ---
Clinical: Evaluate for small bowel obstruction. Technique: Two supine views of the abdomen and pelvis. Findings: Oral contrast material noted throughout the colon extending to the rectosigmoid. There is no evidence for bowel obstruction and the small bowel pattern is nonspecific. Calcifications in the right upper quadrant likely representing nephrolithiasis. No organomegaly. Skeletal structures stable. Impression: Nonspecific nonobstructive bowel pattern. Nephrolithiasis. Signed by Charlie Ugarte MD 08/18/2016 10:25 A
[2016-08-18] MEDS: MORPHINE 2 MG/ML 1ML SYRINGE IV PRN ×3 (12:38→22:01)
[2016-08-18 14:00] VITALS: BP 115/55
[2016-08-18 20:00] VITALS: BP 124/60
[2016-08-18] MEDS ORDERED: ATORVASTATIN 10 MG TAB PO SCH (21:00)
[2016-08-18 22:00] VITALS: BP 124/60
[2016-08-19] MEDS: cefTRIAXone SOD 1 GM in D5W MINI-BAG PLUS 50 ML IV SCH (00:39)
[2016-08-19] MEDS: metroNIDAZOLE 500 MG in APPROPRIATE DILUENT 1 EA IV SCH ×3 (04:37→21:01)
[2016-08-19] MEDS: MORPHINE 2 MG/ML 1ML SYRINGE IV PRN ×4 (04:48→21:02)
[2016-08-19] MEDS: ONDANSETRON 4 MG TAB (S0181) PO PRN ×3 (04:52→21:09)
[2016-08-19] MEDS: HEPARIN SOD (PORCINE) 5000 UNITS/ML VIAL SC SCH ×3 (04:59→21:02)
[2016-08-19 06:00] VITALS: BP 140/71
[2016-08-19 06:19] LABS: BASO % 0.3 % (0.0-1.0); EOS # 0.1 K/mm3 (0.0-0.50); EOS % 2.9 % (0.0-3.0); LARGE UNSTAINED CELL # 0.2 K/mm3 (0.0-0.4); LARGE UNSTAINED CELL % 3.8 % (0.0-4.0); LYMPH # 0.7 K/mm3 (1.5-4.5); LYMPH % 15.7 % (24.0-44.0); MEAN CORPUSCULAR HEMOGLOBIN 30.2 pg (27.0-33.0); MEAN CORPUSCULAR HGB CONC 33.1 g/dl (32.0-36.5); MEAN CORPUSCULAR VOLUME 91.4 fl (80.0-96.0); MONO # 0.2 K/mm3 (0.0-0.8); MONO % 4.4 % (0.0-5.0); NEUTROPHILS # 3.2 K/mm3 (1.8-7.7); NEUTROPHILS % 72.9 % (36.0-66.0); PLATELET COUNT, AUTOMATED 208 k/mm3 (150-450); RED CELL DISTRIBUTION WIDTH 14.3 % (11.5-14.5); WHITE BLOOD COUNT 4.4 K/mm3 (4.0-10.0)
[2016-08-19 06:29] LABS: ANION GAP 9 MEQ/L (8-16); BLOOD UREA NITROGEN 11 MG/DL (7-18); CALCIUM LEVEL 7.6 MG/DL (8.8-10.2); CARBON DIOXIDE LEVEL 26 MEQ/L (21-32); CHLORIDE LEVEL 108 MEQ/L (98-107); CREATININE FOR GFR 0.67 MG/DL (0.55-1.02); GLOMERULAR FILTRATION RATE > 60.0 (>45); GLUCOSE, FASTING 119 MG/DL (80-110); POTASSIUM SERUM 3.5 MEQ/L (3.5-5.1); SODIUM LEVEL 143 MEQ/L (136-145)
[2016-08-19] MEDS: NS 1,000 ML IV SCH (08:59)
[2016-08-19] MEDS: PANTOPRAZOLE 40MG INJ (PROTONIX) (C9113) IV SCH (09:00)
[2016-08-19] MEDS: ENALAPRIL MALEATE 10 MG TAB PO SCH (09:00)
--- NOTE | 2016-08-19 10:54 | IPNPDOC ---
Assessment/Plan Date Seen The patient was seen on 08/19/16. Problems Problems: (1) Ileus Status: Acute Problem Text: of the right sided small bowel etiology unknown could be inflammatory bowel disease will order IBD panel. could be infective on ceftriaxone and metronidazole though less likely as no fever or elevated white count. (2) Partial small bowel obstruction Status: Acute Response to Treatment: Improving Problem Text: will start on clear liquids. and advance to full liquids if tolerated. (3) Hypertension Status: Chronic Problem Text: continue home medication (4) Hyperlipidemia Status: Chronic (5) Nephrolithiasis Status: Chronic Problem Text: Has history of lithotripsy bilateral non obstructive renal stones. 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 Plan / VTE VTE Prophylaxis Ordered?: Yes Subjective Review of Systems CC/HPI The patient is a 60-year-old female admitted with a reason for visit of Chf, Anemiaa,Colitis. Events since last encounter still has some diffuse abdominal pain , no fever or chills, no vomiting, had one large bowel movement this am. no chest pain or sob Objective Physical Examination General Exam: Positive: Alert, No Acute Distress Eye Exam: Positive: Conjunctiva & lids normal, EOMI, PERRLA, Negative: Sclera icteric ENT Exam: Positive: Atraumatic, Mucous membr. moist/pink, Pharynx Normal Neck Exam: Positive: Supple, Negative: JVD, thyromegaly Chest Exam: Positive: Clear to auscultation, Normal air movement Heart Exam: Positive: Normal S1, Normal S2, Rate Normal, Regular Rhythm, Negative: Murmurs, Rubs Abdomen Exam: Positive: BS Hypoactive, Soft, Negative: Hepatospenomegaly, Tenderness Extremity Exam: Positive: Normal pulses, Negative: Clubbing, Cyanosis, Edema Vital Signs/I&O Vital Signs Date Time Temp Pulse Resp B/P Pulse Ox O2 Delivery O2 Flow Rate FiO2 08/19/16 09:00 137/64 08/19/16 06:00 98.2 86 18 93 Room Air I&O- Last 24 Hours up to 6 AM 08/19/16 06:00 Intake Total 1550 ml Output Total 1100 ml Balance 450 ml Laboratory Data Labs 24H Laboratory Tests 2 08/19/16 05:53: Anion Gap 9, White Blood Count 4.4, Red Blood Count 2.99L, Hemoglobin 9.1L, Hematocrit 27.4L, Mean Corpuscular Volume 91.4, Mean Corpuscular Hemoglobin 30.2 , Mean Corpuscular Hemoglobin Concent 33.1, Red Cell Distribution Width 14.3, Platelet Count 208, Neutrophils (%) (Auto) 72.9H, Lymphocytes (%) (Auto) 15.7L, Monocytes (%) (Auto) 4.4, Eosinophils (%) (Auto) 2.9, Basophils (%) (Auto) 0.3, Neutrophils # (Auto) 3.2, Lymphocytes # (Auto) 0.7L, Monocytes # (Auto) 0.2, Eosinophils # (Auto) 0.1, Basophils # (Auto) 0.0, Blood Urea Nitrogen 11, Creatinine 0.67, Sodium Level 143, Potassium Level 3.5, Chloride Level 108H, Carbon Dioxide Level 26, Calcium Level 7.6L, Glomerular Filtration Rate > 60.0, Large Unclassified Cells # 0.2, Large Unclassified Cells % 3.8 CBC/BMP Laboratory Tests 08/19/16 05:53 Calcium Level 7.6 L, Red Blood Count 2.99 L, Mean Corpuscular Volume 91.4, Mean Corpuscular Hemoglobin 30.2, Mean Corpuscular Hemoglobin Concent 33.1, Red Cell Distribution Width 14.3, Neutrophils (%) (Auto) 72.9 H, Lymphocytes (%) (Auto) 15.7 L, Monocytes (%) (Auto) 4.4, Eosinophils (%) (Auto) 2.9, Basophils (%) ( Auto) 0.3, Neutrophils # (Auto) 3.2, Lymphocytes # (Auto) 0.7 L, Monocytes # ( Auto) 0.2, Eosinophils # (Auto) 0.1, Basophils # (Auto) 0.0 Microbiology Microbiology 08/17/16 Urine Culture, Received Pending DORIAN FLORES MD Aug 19, 2016 10:44
[2016-08-19 11:50] LABS: FERRITIN 14 NG/ML (8-252); PERCENT SATURATION 9.7 % (13.2-37.4); TOTAL IRON BINDING CAPACITY 320 UG/DL (250-450)
[2016-08-19 11:57] LABS: FOLATE > 24.0 NG/ML (>5.4); VITAMIN B12 LEVEL 126 PG/ML (247-911)
[2016-08-19 14:00] VITALS: BP 123/59
[2016-08-19 22:00] VITALS: BP 145/65
[2016-08-20] MEDS: cefTRIAXone SOD 1 GM in D5W MINI-BAG PLUS 50 ML IV SCH (01:19)
[2016-08-20] MEDS: MORPHINE 2 MG/ML 1ML SYRINGE IV PRN ×4 (01:19→22:02)
[2016-08-20] MEDS: NS 1,000 ML IV SCH ×2 (01:19→13:05)
--- NOTE | 2016-08-20 03:27 | EDDOCDS ---
Nurse's Notes [facility] Name: Briseyda Cheng Age: 60 yrs Sex: Female : 1955 Arrival Date: 08/17/2016 Time: 18:16 Bed 14 Private MD: Diagnosis: Ileus, unspecified Presentation: 08/17 18:22 Presenting complaint: Patient states: Abdominal pain starting approximately 3 hours ld5 ago. Increasing in severity since. + nausea. History of twisted bowel and SBO. Suicide/Homicide risk assessment- the patient denies having any suicidal and/or homicidal ideations and does not present with any other emotional, behavioral or mental health complaints. 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 Transition of care: patient was not received from another setting of care. 18:22 Acuity: LG Level 3 ld5 18:22 Method Of Arrival: Ambulance ld5 08/18 01:51 Adult Sepsis Screening: The patient does not have new or worsening altered mentation. jp6 Patient's respiratory rate is less than 22. Systolic blood pressure is greater than 100. Patient has a qSOFA score of 0- Negative Sepsis Screen. Triage Assessment: 08/17 18:30 General: Appears uncomfortable. Pain: Location: right upper quadrant and left upper ld5 quadrant Pain currently is 10 out of 10 on a pain scale. Pain does not radiate. Quality of pain is described as sharp, stabbing, Pain began 3 hours ago Is intermittent Noted to be grimacing, moaning. HIV screening NA for this visit Offered previously. Neurological: Level of Consciousness is awake, obeys commands. Respiratory: Airway is patent Respiratory effort is even, unlabored. GI: Abdomen is non- distended Reports upper abdominal pain, nausea. Derm: Skin is intact, Skin is clammy, Skin is pale. Historical: - Allergies: Cipro PO; Indocin; Tomato (Solanum Lycopersicum); Valium; Vioxx; Seasonal allergies; - Home Meds: 1. Vitamin D3 oral oral 800 unit daily 2. enalapril maleate 10 mg Oral tab 1 tab once daily 3. metformin 1,000 mg Oral tab 1 tab 2 times per day 4. hydrochlorothiazide 25 mg Oral tab 1 tab once daily 5. Calcium Citrate 630 mg Oral twice a day 6. Iron CR 650 Oral daily 7. meloxicam 7.5 mg oral tab 1 tab once daily 8. atorvastatin 10 mg oral tab 1 tab once daily 9. gabapentin 300 mg Oral cap 3 times per day 10. potassium citrate 10 mEq (1,080 mg) oral TbER 3 times per day 11. pantoprazole 40 mg oral TbEC 1 tab once daily - PMHx: Anemia; Arthritis; CHF; Colitis; Diabetes - NIDDM: controlled; Diverticulitis; Hypercholesterolemia; Hypertension; Kidney stones; low magnesium; Twisted bowel; Small bowel obstruction; - PSHx: ; Kidney stone removal; - Social history: Smoking status: Patient states former smoker of tobacco. No barriers to communication noted, The patient speaks fluent Upper Sorbian, Speaks appropriately for age. - Family history: Not pertinent. - : The pt / caregiver states he / she is not on anticoagulants. Home medication list is obtained from the patient. - Exposure Risk Screening:: None identified. Screenin:44 Screening information is obtained from the patient. Fall risk: No risks identified. ttb Assistance ADL's: requires no assistance with activities of daily living. Abuse/DV Screen: The patient / caregiver reports he/she is: not in a situation that causes fear, pain or injury. Nutritional screening: No deficits noted. Advance Directives: Currently, there is no health care proxy. home support is adequate. Assessment: 18:44 General: Appears distressed, uncomfortable, well nourished, well groomed, Behavior is ttb appropriate for age, cooperative, pleasant. Pain: Location: upper abd. Neurological: Level of Consciousness is awake, alert, Oriented to person, place, time, Speech is normal. Cardiovascular: Heart tones S1 S2 present Rhythm is sinus tachycardia Chest pain is denied. Respiratory: No deficits noted. Airway is patent Respiratory effort is even, unlabored, Breath sounds are clear bilaterally. Denies cough, shortness of breath. GI: Abdomen is non- distended obese, Last BM was August 17, 2016. Bowel sounds present X 4 quads. Abd is soft X 4 quads Abd is tender to palpation in epigastric area, right upper quadrant and left upper quadrant Reports upper abdominal pain, nausea, vomiting. : Denies burning with urination, urinary frequency, urgency. Derm: Skin is normal. Injury Description: No known injury. 19:00 Reassessment: Patient appears in no apparent distress at this time. Patient states ttb feeling better. pt states she feels better. Pain improved. Denies need for more morphine at this time. Son at bedside.. Adult Sepsis Screening: The patient does not have new or worsening altered mentation. Patient's respiratory rate is less than 22. Systolic blood pressure is greater than 100. Patient has a qSOFA score of 0- Negative Sepsis Screen. 20:00 Reassessment: Patient appears in no apparent distress at this time. Patient states ttb feeling better. Patient states symptoms have improved. pt denies nausea at this time. Denies need for pain meds. Pt awaiting CT. Son at bedside. NSR on monitor.. 20:00 Neurological: Level of Consciousness is awake, alert. ttb 20:45 General: Appears in no apparent distress, comfortable, pt resting on stretcher. Denies ttb need for pain meds at this time. States soon as pain is slowly increasing. Pt awaiting CT.. 20:45 Respiratory: No deficits noted. Airway is patent Respiratory effort is even, unlabored. ttb GI: Denies nausea, vomiting. 21:19 Reassessment: Patient appears in no apparent distress at this time. pt states abd pain ttb returning. Pt requests morphine at this time. Pt able to ambulate with steady gait. Denies dizziness. Pt awaiting CT. Tolerated oral contrast well. Denies nausea.. 22:08 General: pt taken to CT. NAD noted. Pt given metformin information sheet. States ttb understanding. . 22:40 Reassessment: Patient appears in no apparent distress at this time. Patient states ttb feeling better. Patient states symptoms have improved. Pain improved after morphine. Pt awaiting results. Son at bedside. NAD noted.. Neurological: Level of Consciousness is awake, alert. Cardiovascular: Chest pain is denied. Respiratory: No deficits noted. Airway is patent. GI: Denies nausea, vomiting. Derm: Skin is normal. Musculoskeletal: Range of motion intact in all extremities. 22:46 General: report given to next Sandra SILVER to continue care. . ttb 23:53 General: Appears in no apparent distress, comfortable, Behavior is appropriate for age, h cooperative, family at bedside, patient reports intermittent pain persists, appears comfortable at this time and is awaiting results. 08/18 00:49 General: pain 2/10, "tolerable" after medication. No visible distress, denies other [facility] needs at this time, awaiting admission. 01:38 Reassessment: Patient appears in no apparent distress at this time. Patient denies pain jp6 at this time. General: Appears comfortable, Behavior is appropriate for age, cooperative. Pain: Denies pain. Neurological: Level of Consciousness is awake, alert, Oriented to person, place, time. Cardiovascular: Capillary refill < 3 seconds. Respiratory: Airway is patent Respiratory effort is even, unlabored, Respiratory pattern is regular, symmetrical. GI: Abdomen is distended, Bowel sounds present X 4 quads. : No deficits noted. Derm: Skin is normal. Musculoskeletal: Range of motion intact in all extremities. Vital Signs: 08/17 18:24 BP 189 / 97 LA Sitting (auto/lg); Pulse 90; Resp 20; Temp 99.7(O); Pulse Ox 97% on R/A; rs6 Weight 72.57 kg (R); Height 4 ft. 9 in. (144.78 cm) (R); Pain 10/10; 19:03 BP 134 / 76 (auto/); ttb 19:04 Pulse 86 MON; Pulse Ox 95% ; ttb 19:06 BP 139 / 84 (auto/); ttb 19:07 Pulse 86 MON; Resp 18; Pulse Ox 96% on R/A; ttb 19:21 BP 140 / 76 (auto/); ttb 19:21 Pulse 88 MON; Pulse Ox 95% ; ttb 19:36 BP 143 / 79 (auto/); ttb 19:37 Pulse 90 MON; Pulse Ox 94% ; ttb 19:51 BP 132 / 69 (auto/); ttb 19:51 Pulse 88 MON; Pulse Ox 93% ; ttb 20:06 BP 144 / 75 (auto/); ttb 20:07 Pulse 90 MON; Resp 18; Pulse Ox 94% on R/A; Pain 5/10; ttb 20:30 Pulse 96 MON; Pulse Ox 96% ; ttb 21:00 Pulse 92 MON; Pulse Ox 96% on R/A; ttb 21:27 BP 144 / 83 (auto/); ttb 21:29 Pulse 90 MON; Pulse Ox 95% ; ttb 22:18 BP 144 / 79 (auto/); ttb 22:20 Pulse 92 MON; Resp 18 S; Pulse Ox 95% on R/A; ttb 08/18 00:46 BP 147 / 76 (auto/); jp6 00:46 Pulse 98 MON; Pulse Ox 84% ; jp6 00:49 BP 147 / 76; Pulse 96; Resp 16; Pulse Ox 97% ; Pain 2/10; [facility] 08/17 18:24 Body Mass Index 34.62 (72.57 kg, 144.78 cm) rs6 Vitals: 08/17 18:24 Log In Time N/A - ambulance arrival. rs6 ED Course: 18:18 Patient visited by Georgiana Bledsoe, Communications Specialist. deg 18:18 Patient moved to Waiting deg 18:18 Patient moved to 14 deg 18:19 Elaine English MD is Attending Physician. sd1 18:19 Patient visited by Elaine English MD. sd1 18:24 Triage Initiated ld5 18:24 Pt greeted and oriented to ED. Patient advised of names of staff involved in care, rs6 location of call farris, wait times and NPO status. Patient has correct armband on for positive identification. Placed in gown. Bed in low position. Call light in reach. Side rails up X2. air sampling and monitoring on. Pulse ox on. NIBP on. 18:25 Patient visited by Gwen Perdomo PCA. rs6 18:32 Patient visited by Isamar Walker RN. ld5 18:33 Amylase Sent. [facility] 18:33 Basic Metabolic Profile Sent. [facility] 18:33 CBC with Diff Sent. [facility] 18:33 Lipase Sent. [facility] 18:33 Liver Profile Sent. [facility] 18:33 Prothrombin Time Profile\\E\\INR Sent. [facility] 18:39 Patient visited by Gwen Perdomo PCA. rs6 18:39 EKG done. (by ED staff). Reviewed by Elaine English MD. rs6 18:44 The patient / caregiver is instructed regarding the plan of care and ED course. ttb 18:46 Inserted saline lock: 20 gauge in left antecubital area and blood collected. The [facility] patient tolerated the procedure well. Labs drawn. (by ED staff). Sent per order to lab. 18:47 Patient visited by Anisha Venegas RN. ttb 19:14 Patient visited by Anisha Venegas RN. ttb 19:36 Attending Physician role handed off by Elaine English MD cs11 19:36 Hardeep Herrera DO is Attending Physician. cs11 19:58 [facility] Payment Agreement was scanned into [employer] and attached to record. gb 20:02 Abdomen, Flat\\E\\Upright,PA Chest Returned. EDMS 20:04 Patient visited by Anisha Venegas RN. ttb 20:18 Patient visited by Anisha Venegas RN. ttb 21:21 Patient visited by Anisha Venegas RN. ttb 22:08 Patient visited by Anisha Venegas RN. ttb 22:08 Patient visited by Anisha Venegas RN. ttb 22:46 Patient visited by Anisah Venegas RN. ttb 23:21 Patient visited by Sandra Garcia RN. cj 23:40 CT ABD & PELVIS: IV and Oral Contrast Returned. EDMS 23:53 No procedures done that require assistance. [facility] 08/18 00:14 Ace To MD is Hospitalizing Provider. cs11 01:12 Anai De Paz,ADRIANNE is Primary Nurse. jp6 09:34 T-Sheet-- Draft Copy was scanned into [employer] and attached to record. [facility] Administered Medications: 08/17 18:43 Drug: morphine 4 mg Route: IVP; Site: left antecubital; [facility] 19:00 Follow up: Response: No Adverse Reaction; Pain is decreased ttb 18:45 Drug: Ondansetron 4 mg Route: IVP; Site: left antecubital; [facility] 18:46 Drug: NS 0.9% 1000 ml Route: IV; Rate: 100 mL/hr; Site: left antecubital; [facility] 20:05 Drug: NS 0.9% 1000 ml [sodium chloride 0.9 % intravenous solution] Route: IV; Rate: ttb bolus; Site: left antecubital; 20:17 Drug: Diatrizoate Meglumine & Sodium 10 ml [diatrizoate meglumine and diat.sodium 66 ttb %-10 % oral solution (10 mL)] Route: PO; 20:51 Drug: Diatrizoate Meglumine & Sodium 10 ml [diatrizoate meglumine and diat.sodium 66 ttb %-10 % oral solution (10 mL)] Route: PO; 21:29 Drug: morphine 4 mg Route: IVP; Site: left antecubital; ttb 22:00 Follow up: Response: Confirmed pt not driving.; No Adverse Reaction; Pain is decreased ttb 08/18 00:20 Drug: Dilaudid - HYDROmorphone 0.5 mg [hydromorphone 1 mg/mL injection syringe (0.5 cjh mL)] Route: IVP; Site: left antecubital; 00:49 Follow up: BP 147 / 76; Pulse 96 bpm; Resp 16 bpm; Pulse Ox 97% ; Pain 09/27 Adult; cjh Response: No Adverse Reaction; Pain is decreased; 09/27 Intake: Order Results: Lab Order: Amylase; SPEC'M 08/17/16 18:30 Test: AMYLASE; Value: 43; Range: 25-115; Units: U/L; Status: F Lab Order: Basic Metabolic Profile; SPEC' 08/17/16 18:30 Test: GLUCOSE, FASTING; Value: 167; Range: 80-110; Abnormal: Above high normal; Units: MG/DL; Status: F Test: BLOOD UREA NITROGEN; Value: 15; Range: 7-18; Units: MG/DL; Status: F Test: CREATININE FOR GFR; Value: 0.83; Range: 0.55-1.02; Units: MG/DL; Status: F Test: GLOMERULAR FILTRATION RATE; Value: > 60.0; Range: >45; Status: F Test: SODIUM LEVEL; Value: 140; Range: 136-145; Units: MEQ/L; Status: F Test: POTASSIUM SERUM; Value: 4.1; Range: 3.5-5.1; Units: MEQ/L; Status: F Test: CHLORIDE LEVEL; Value: 101; Range: 98-107; Units: MEQ/L; Status: F Test: CARBON DIOXIDE LEVEL; Value: 24; Range: 21-32; Units: MEQ/L; Status: F Test: ANION GAP; Value: 15; Range: 8-16; Units: MEQ/L; Status: F Test: CALCIUM LEVEL; Value: 9.1; Range: 8.8-10.2; Units: MG/DL; Status: F Test Note: ; Units are mL/min/1.73 m2 Chronic Kidney Disease Staging per NKF: Stage I & II GFR >=60 Normal to Mildly Decreased Stage III GFR 30-59 Moderately Decreased Stage IV GFR 15-29 Severely Decreased Stage V GFR <15 Very Little GFR Left ESRD GFR <15 on MACHINE TRACER Lab Order: CBC with Diff; RADHA'Shanna 08/17/16 18:30 Test: WHITE BLOOD COUNT; Value: 9.8; Range: 4.0-10.0; Units: K/mm3; Status: F Test: RED BLOOD COUNT; Value: 3.65; Range: 4.00-5.40; Abnormal: Below low normal; Units: M/mm3; Status: F Test: HEMOGLOBIN; Value: 11.1; Range: 12.0-16.0; Abnormal: Below low normal; Units: g/dl; Status: F Test: HEMATOCRIT; Value: 31.9; Range: 36.0-47.0; Abnormal: Below low normal; Units: %; Status: F Test: MEAN CORPUSCULAR VOLUME; Value: 87.3; Range: 80.0-96.0; Units: fl; Status: F Test: MEAN CORPUSCULAR HEMOGLOBIN; Value: 30.5; Range: 27.0-33.0; Units: pg; Status: F Test: MEAN CORPUSCULAR HGB CONC; Value: 34.9; Range: 32.0-36.5; Units: g/dl; Status: F Test: RED CELL DISTRIBUTION WIDTH; Value: 14.2; Range: 11.5-14.5; Units: %; Status: F Test: PLATELET COUNT, AUTOMATED; Value: 287; Range: 150-450; Units: k/mm3; Status: F Test: NEUTROPHILS %; Value: 82.9; Range: 36.0-66.0; Abnormal: Above high normal; Units: %; Status: F Test: LYMPH %; Value: 10.9; Range: 24.0-44.0; Abnormal: Below low normal; Units: %; Status: F Test: MONO %; Value: 2.8; Range: 0.0-5.0; Units: %; Status: F Test: EOS %; Value: 1.2; Range: 0.0-3.0; Units: %; Status: F Test: BASO %; Value: 0.3; Range: 0.0-1.0; Units: %; Status: F Test: LARGE UNSTAINED CELL %; Value: 2.0; Range: 0.0-4.0; Units: %; Status: F Test: NEUTROPHILS #; Value: 8.1; Range: 1.8-7.7; Abnormal: Above high normal; Units: K/mm3; Status: F Test: LYMPH #; Value: 1.1; Range: 1.5-4.5; Abnormal: Below low normal; Units: K/mm3; Status: F Test: MONO #; Value: 0.3; Range: 0.0-0.8; Units: K/mm3; Status: F Test: EOS #; Value: 0.1; Range: 0.0-0.50; Units: K/mm3; Status: F Test: BASO #; Value: 0.0; Range: 0.0-0.2; Units: K/mm3; Status: F Test: LARGE UNSTAINED CELL #; Value: 0.2; Range: 0.0-0.4; Units: K/mm3; Status: F Lab Order: Lipase; [facility] 08/17/16 18:30 Test: LIPASE; Value: 166; Range: 73-393; Units: U/L; Status: F Lab Order: Liver Profile; [facility] 08/17/16 18:30 Test: AST/SGOT; Value: 15; Range: 15-37; Units: U/L; Status: F Test: ALT/SGPT; Value: 22; Range: 12-78; Units: U/L; Status: F Test: ALKALINE PHOSPHATASE; Value: 86; Range: 45-117; Units: U/L; Status: F Test: BILIRUBIN,TOTAL; Value: 0.8; Range: 0.2-1.0; Units: MG/DL; Status: F Test: BILIRUBIN,DIRECT; Value: 0.2; Range: 0.0-0.2; Units: MG/DL; Status: F Test: TOTAL PROTEIN; Value: 6.7; Range: 6.4-8.2; Units: GM/DL; Status: F Test: ALBUMIN; Value: 4.1; Range: 3.2-5.2; Units: GM/DL; Status: F Test: ALBUMIN/GLOBULIN RATIO; Value: 1.58; Range: 1.00-1.93; Status: F Lab Order: Prothrombin Time Profile\\E\\INR; [facility] 08/17/16 18:30 Test: PROTHROMBIN TIME; Value: 12.7; Range: 12.3-14.5; Units: SECONDS; Status: F Test: INR; Value: 0.94; Status: F Test Note: ; THERAPUTIC HUMAN INR VALUES INDICATIONS NORMAL RANGES PROPHYLAXIS/TREATMENT OF: VENOUS THROMBOSIS 2.0-3.0 PULMONARY EMBOLISM 2.0-3.0 PREVENTION OF SYSTEMIC EMBOLISM FROM: TISSUE HEART VALVES 2.0-3.0 ACUTE MYOCARDIAL INFARCTION 2.0-3.0 VALVULAR HEART DISEASE 2.0-3.0 ATRIAL FIBRILLATION 2.0-3.0 MECHANICAL VALVES(HIGH RISK) 2.5-3.5 RECURRENT MYOCARDIAL INFARCTION 2.5-3.5 Lab Order: CIP; [facility] 08/17/16 18:30 Test: CPK CREATINE PHOSPHOKINASE; Value: 49; Range: 26-192; Units: U/L; Status: F Test: CK-MB VALUE MASS; Value: 2.1; Range: 0.0-3.6; Units: NG/ML; Status: F Test: MB/CK RELATIVE INDEX; Value: 4.28; Range: < OR =4; Abnormal: Above high normal; Status: F Test Note: ; DIAGNOSIS CRITERIA MMB ng/ml Relative Index (RI) NON-AMI < or = 5 N/A ANGLIN ZONE > 5 < or = 4 AMI > 5 > 4 Lab Order: Troponin; [facility] 08/17/16 18:30 Test: TROPONIN I; Value: < 0.02; Range: < 0.10; Units: NG/ML; Status: F Test Note: ; Troponin I Reference Interval for [email or web address] LOCI: 99th Percentile= 0.00-0.045 ng/ml Risk Stratification: <= 0.10 ng/ml Decreased Risk for Adverse Clinical Events. 0.10-1.50 ng/ml Increased Risk for Adverse Clinical Events. Evaluation of additional criterion and/or repeat testing in 2-6 hours is suggested to rule out myocardial damage. >= 1.50 ng/ml Indicative of Myocardial Injury. Lab Order: Urinalysis; SPEC'M 08/17/16 22:20 Test: APPEARANCE, URINE; Value: CLEAR; Range: CLEAR; Status: F Test: COLOR, URINE; Value: COLORLESS; Range: YELLOW; Status: F Test: PH,URINE; Value: 7.0; Range: 5.0-9.0; Units: UNITS; Status: F Test: SPECIFIC GRAVITY URINE AUTO; Value: 1.011; Range: 1.002-1.035; Status: F Test: PROTEIN, URINE AUTO; Value: NEGATIVE; Range: NEGATIVE; Units: mg/dL; Status: F Test: GLUCOSE, URINE (UA) AUTO; Value: NEGATIVE; Range: NEGATIVE; Units: mg/dL; Status: F Test: KETONE, URINE AUTO; Value: NEGATIVE; Range: NEGATIVE; Units: mg/dL; Status: F Test: UROBILINOGEN, URINE AUTO; Value: 0.2; Range: 0.0-2.0; Units: mg/dL; Status: F Test: BILIRUBIN, URINE AUTO; Value: NEGATIVE; Range: NEGATIVE; Status: F Test: NITRITE, URINE AUTO; Value: NEGATIVE; Range: NEGATIVE; Status: F Test: LEUKOCYTE ESTERASE, URINE AUTO; Value: NEGATIVE; Range: NEGATIVE; Status: F Test: BLOOD, URINE BLOOD; Value: NEGATIVE; Range: NEGATIVE; Status: F Test: WBC, URINE AUTO; Value: 0; Range: 0-3; Units: /HPF; Status: F Test: RBC, URINE AUTO; Value: 0; Range: 0-3; Units: /HPF; Status: F Test: BACTERIA, URINE AUTO; Value: NEGATIVE; Range: NEGATIVE; Status: F Test: SQUAMOUS EPITHELIAL CELL UR AU; Value: 0; Range: 0-6; Units: /HPF; Status: F Test: HYALINE CAST, URINE AUTO; Value: 0; Range: 0-1; Units: /LPF; Status: F Radiology Order: Abdomen, Flat\\E\\Upright,PA Chest Test: Abdomen, Flat\\E\\Upright,PA Chest REASON FOR EXAMINATION: Abdomen Pain; Clinical: Epigastric and abdominal pain.; ; Technique: Upright view of the chest with supine and upright views of the; abdomen and pelvis.; ; Findings: Frontal upright view of the chest demonstrates no acute; cardiopulmonary process or free air below the diaphragm to suspect; pneumoperitoneum. Supine and upright views of the abdomen and pelvis demonstrate; nonspecific bowel gas pattern without obstruction or perforation. No; organomegaly. Calcifications suggesting nephrolithiasis. Skeletal structures; normal for age.; ; Impression:; Nonspecific bowel gas pattern. Nephrolithiasis.; ; ; Signed by; Charlie Ugarte MD 08/17/2016 07:19 P; Radiology Order: CT ABD & PELVIS: IV and Oral Contrast Test: CT ABD & PELVIS: IV and Oral Contrast REASON FOR EXAMINATION: Diverticulitis; ; CLINICAL HISTORY: Abdominal pain.; ; TECHNIQUE: CT abdomen and pelvis following administration of IV contrast.; ; COMPARISON: July 18, 2016.; ; CT ABDOMEN WITH CONTRAST:; Lung bases: No lung base infiltrate or effusion.; Liver: No intrahepatic ductal dilation.; Gallbladder: Normally distended.; Pancreas: No pancreatic duct dilation.; Bowel loops: Several loops of small bowel in the right midabdomen on axial images 73-95, are mildly d; ilated at 3.2 cm, with adjacent ascites, suggesting ileus. However, the etiology of the inflammatory; change is uncertain.; Spleen: Normal size.; Adrenals: Normal size.; Kidneys: There are nonobstructive stones of both kidneys . There is no hydronephrosis bilaterally.; Aorta: Normal caliber.; Peritoneum: No free air.; ; CT PELVIS WITH CONTRAST:; Colon: Multiple colonic diverticula without evidence of diverticulitis.; Appendix: Normal appendix is seen.; Bladder: Normally distended.; Pelvic organs: Unremarkable.; Peritoneum: No fluid.; Skeleton: No acute findings.; ; IMPRESSION:; 1. Ileus versus partial small bowel obstruction within the distal small bowel loops of the right abdo; men, possibly due to inflammatory bowel disease or other inflammatory etiologies. There is mild assoc; iated ascites. Similar findings were described on the July 18 exam.; 2. Bilateral nephrolithiasis without hydronephrosis.; ; Outcome: 08/17 23:53 No special radiology studies were completed. [facility] 08/18 00:15 Decision to Hospitalize by Provider. 11 01:50 Discharge Assessment: Patient awake, alert and oriented x 3. No cognitive and/or jp6 functional deficits noted. Patient verbalized understanding of disposition instructions. patient administered narcotics - yes. Patient was admitted to the hospital or transferred to another facility. The following High Risk Discharge criteria are identified: None. Admitted to Med/Surg accompanied by tech, via stretcher, with chart. Condition: unchanged. Property :Personal belongings accompany Pt. 02:27 Patient left the ED. jp6 Signatures: Dispatcher [employer] EDNJ Elaine English MD MD sd1 Georgiana Bledsoe, Communications Specialist Unit deg Margie Lilly, Reg Reg Isamra Alvarez,RN RN ld5 Sandra Garcia,RN RN [facility] Hardeep Herrera, DO cs11 Anisha Venegas, RN RN ttb Gwen Perdomo, CORRECTIVE THERAPY AIDE TEACHER CORRECTIVE THERAPY AIDE TEACHER rs6 Anai De Paz,RN RN jp6 Elaine Mares [facility] Chart Complete DAVID
--- NOTE | 2016-08-20 03:27 | EDDOCDS ---
Physician Documentation [facility] Name: Briseyda Cheng Age: 60 yrs Sex: Female : 1955 Arrival Date: 08/17/2016 Time: 18:16 Bed 14 Private MD: Disposition: 08/18/16 00:15 Hospitalization ordered by Ace To for Inpatient Admission. Preliminary diagnosis is Ileus, unspecified. - Bed requested for 4 [place]. - Status is Inpatient Admission. jp6 - Condition is Stable. - Problem is an ongoing problem. - Symptoms are unchanged. Historical: - Allergies: Cipro PO; Indocin; Tomato (Solanum Lycopersicum); Valium; Vioxx; Seasonal allergies; - Home Meds: 1. Vitamin D3 oral oral 800 unit daily 2. enalapril maleate 10 mg Oral tab 1 tab once daily 3. metformin 1,000 mg Oral tab 1 tab 2 times per day 4. hydrochlorothiazide 25 mg Oral tab 1 tab once daily 5. Calcium Citrate 630 mg Oral twice a day 6. Iron CR 650 Oral daily 7. meloxicam 7.5 mg oral tab 1 tab once daily 8. atorvastatin 10 mg oral tab 1 tab once daily 9. gabapentin 300 mg Oral cap 3 times per day 10. potassium citrate 10 mEq (1,080 mg) oral TbER 3 times per day 11. pantoprazole 40 mg oral TbEC 1 tab once daily - PMHx: Anemia; Arthritis; CHF; Colitis; Diabetes - NIDDM: controlled; Diverticulitis; Hypercholesterolemia; Hypertension; Kidney stones; low magnesium; Twisted bowel; Small bowel obstruction; - PSHx: ; Kidney stone removal; - Social history: Smoking status: Patient states former smoker of tobacco. No barriers to communication noted, The patient speaks fluent Mozambican, Speaks appropriately for age. - Family history: Not pertinent. - : The pt / caregiver states he / she is not on anticoagulants. Home medication list is obtained from the patient. - Exposure Risk Screening:: None identified. Vital Signs: 08/17 18:24 BP 189 / 97 LA Sitting (auto/lg); Pulse 90; Resp 20; Temp 99.7(O); Pulse Ox 97% on R/A; rs6 Weight 72.57 kg / 159.99 lbs (R); Height 4 ft. 9 in. (144.78 cm) (R); Pain 10/10; 19:03 BP 134 / 76 (auto/); ttb 19:04 Pulse 86 MON; Pulse Ox 95% ; ttb 19:06 BP 139 / 84 (auto/); ttb 19:07 Pulse 86 MON; Resp 18; Pulse Ox 96% on R/A; ttb 19:21 BP 140 / 76 (auto/); ttb 19:21 Pulse 88 MON; Pulse Ox 95% ; ttb 19:36 BP 143 / 79 (auto/); ttb 19:37 Pulse 90 MON; Pulse Ox 94% ; ttb 19:51 BP 132 / 69 (auto/); ttb 19:51 Pulse 88 MON; Pulse Ox 93% ; ttb 20:06 BP 144 / 75 (auto/); ttb 20:07 Pulse 90 MON; Resp 18; Pulse Ox 94% on R/A; Pain 5/10; ttb 20:30 Pulse 96 MON; Pulse Ox 96% ; ttb 21:00 Pulse 92 MON; Pulse Ox 96% on R/A; ttb 21:27 BP 144 / 83 (auto/); ttb 21:29 Pulse 90 MON; Pulse Ox 95% ; ttb 22:18 BP 144 / 79 (auto/); ttb 22:20 Pulse 92 MON; Resp 18 S; Pulse Ox 95% on R/A; ttb 08/18 00:46 BP 147 / 76 (auto/); jp6 00:46 Pulse 98 MON; Pulse Ox 84% ; jp6 00:49 BP 147 / 76; Pulse 96; Resp 16; Pulse Ox 97% ; Pain 2/10; [facility] 08/17 18:24 Body Mass Index 34.62 (72.57 kg, 144.78 cm) rs6 MDM: 08/17 18:22 Undress patient appropriately for examination ordered. sd1 18:23 NS 0.9% 1000 ml IV at 100 mL/hr continuous ordered. sd1 18:23 Ondansetron 4 mg IVP once ordered. sd1 18:23 morphine 4 mg IVP every 15 minutes; Document pain score/vitals after each dose (Hold if sd1 SBP < 90mmHg) x2 ordered. 18:23 Abdomen, Flat\E\Upright,PA Chest Ordered. EDMS 18:23 Amylase Ordered. EDMS 18:23 Basic Metabolic Profile Ordered. EDMS 18:23 CBC with Diff Ordered. EDMS 18:23 Lipase Ordered. EDMS 18:23 Liver Profile Ordered. EDMS 18:23 Prothrombin Time Profile\E\INR Ordered. EDMS 18:23 NOTHING BY MOUTH+DIET ordered. EDMS 18:24 ECG WITH READING ER PHYS+CARDIAG ordered. EDMS 18:25 BED REQUEST+ADM ordered. EDMS 18:39 CIP Ordered. EDMS 18:39 Troponin Ordered. EDMS 19:03 Basic Metabolic Profile Reviewed. sd1 19:03 CBC with Diff Reviewed. sd1 19:03 CIP Reviewed. sd1 19:03 Amylase Reviewed. sd1 19:03 Lipase Reviewed. sd1 19:03 Liver Profile Reviewed. sd1 19:03 Prothrombin Time Profile\E\INR Reviewed. sd1 19:03 Troponin Reviewed. sd1 19:52 Financial registration complete. gb 19:58 [facility] Payment Agreement was scanned into Ready and attached to record. gb 20:02 NS 0.9% 1000 ml IV at bolus once ordered. cs11 20:04 CT ABD & PELVIS: IV and Oral Contrast Ordered. EDMS 20:16 Diatrizoate Meglumine & Sodium Liquid 10 ml PO once; mix in 290cc of water : 2024 ttb ordered. 20:16 Diatrizoate Meglumine & Sodium Liquid 10 ml PO once; mix in 290cc of water : 2054 ttb ordered. 21:21 Urinalysis Ordered. EDMS 21:21 Urine Culture Ordered. EDMS 01/ 00:05 Dilaudid - HYDROmorphone 0.5 mg IVP once ordered. cs11 00:36 Urinalysis Reviewed. cs11 00:36 Abdomen, Flat\E\Upright,PA Chest Reviewed. cs11 00:36 CT ABD & PELVIS: IV and Oral Contrast Reviewed. cs11 01:40 Admission / Observation Status ordered. EDMS 01:40 NPO DIET ordered. EDMS 01:40 BASIC METABOLIC PROFILE Ordered. EDMS 01:40 CBC WITH DIFFERENTIAL Ordered. EDMS 01:41 Abdomen,Flat Plate KUB Ordered. EDMS 01:42 LACTIC ACID LEVEL, LACTATE Ordered. EDMS 01:51 HEMOGLOBIN A1C Ordered. EDMS 09:34 T-Sheet-- Draft Copy was scanned into Ready and attached to record. [facility] Administered Medications: 08/17 18:43 Drug: morphine 4 mg Route: IVP; Site: left antecubital; [facility] 19:00 Follow up: Response: No Adverse Reaction; Pain is decreased ttb 18:45 Drug: Ondansetron 4 mg Route: IVP; Site: left antecubital; [facility] 18:46 Drug: NS 0.9% 1000 ml Route: IV; Rate: 100 mL/hr; Site: left antecubital; [facility] 20:05 Drug: NS 0.9% 1000 ml [sodium chloride 0.9 % intravenous solution] Route: IV; Rate: ttb bolus; Site: left antecubital; 20:17 Drug: Diatrizoate Meglumine & Sodium 10 ml [diatrizoate meglumine and diat.sodium 66 ttb %-10 % oral solution (10 mL)] Route: PO; 20:51 Drug: Diatrizoate Meglumine & Sodium 10 ml [diatrizoate meglumine and diat.sodium 66 ttb %-10 % oral solution (10 mL)] Route: PO; 21:29 Drug: morphine 4 mg Route: IVP; Site: left antecubital; ttb 22:00 Follow up: Response: Confirmed pt not driving.; No Adverse Reaction; Pain is decreased ttb 08/18 00:20 Drug: Dilaudid - HYDROmorphone 0.5 mg [hydromorphone 1 mg/mL injection syringe (0.5 cjh mL)] Route: IVP; Site: left antecubital; 00:49 Follow up: BP 147 / 76; Pulse 96 bpm; Resp 16 bpm; Pulse Ox 97% ; Pain 2/10 Adult; [facility] Response: No Adverse Reaction; Pain is decreased; 2/10 Signatures: Dispatcher [employer] Elaine Osorio MD MD sd1 Shelbie Mims RN RN daMargie Liu, Reg Reg gb Isamar WalkerRN RN nick5 Hardeep Herrera DO DO cs11 Anisha Venegas RN RN Anai France RN RN [email or web address] Elaine Mares Jane RN [facility] The chart was reviewed and I authenticate all verbal orders and agree with the evaluation and treatment provided.Attachments: 08/17 19:58 [facility] Payment Agreement gb 08/18 09:34 T-Sheet-- Draft Copy seh Chart Complete MTDD
--- NOTE | 2016-08-20 03:27 | EDDOCDS ---
Physician Documentation [facility] Name: Briseyda Cheng Age: 60 yrs Sex: Female : 1955 Arrival Date: 08/17/2016 Time: 18:16 Bed 14 Private MD: Disposition: 08/18/16 00:15 Hospitalization ordered by Ace To for Inpatient Admission. Preliminary diagnosis is Ileus, unspecified. - Bed requested for 4 [place]. - Status is Inpatient Admission. jp6 - Condition is Stable. - Problem is an ongoing problem. - Symptoms are unchanged. Historical: - Allergies: Cipro PO; Indocin; Tomato (Solanum Lycopersicum); Valium; Vioxx; Seasonal allergies; - Home Meds: 1. Vitamin D3 oral oral 800 unit daily 2. enalapril maleate 10 mg Oral tab 1 tab once daily 3. metformin 1,000 mg Oral tab 1 tab 2 times per day 4. hydrochlorothiazide 25 mg Oral tab 1 tab once daily 5. Calcium Citrate 630 mg Oral twice a day 6. Iron CR 650 Oral daily 7. meloxicam 7.5 mg oral tab 1 tab once daily 8. atorvastatin 10 mg oral tab 1 tab once daily 9. gabapentin 300 mg Oral cap 3 times per day 10. potassium citrate 10 mEq (1,080 mg) oral TbER 3 times per day 11. pantoprazole 40 mg oral TbEC 1 tab once daily - PMHx: Anemia; Arthritis; CHF; Colitis; Diabetes - NIDDM: controlled; Diverticulitis; Hypercholesterolemia; Hypertension; Kidney stones; low magnesium; Twisted bowel; Small bowel obstruction; - PSHx: ; Kidney stone removal; - Social history: Smoking status: Patient states former smoker of tobacco. No barriers to communication noted, The patient speaks fluent [place]ican, Speaks appropriately for age. - Family history: Not pertinent. - : The pt / caregiver states he / she is not on anticoagulants. Home medication list is obtained from the patient. - Exposure Risk Screening:: None identified. Vital Signs: 08/17 18:24 BP 189 / 97 LA Sitting (auto/lg); Pulse 90; Resp 20; Temp 99.7(O); Pulse Ox 97% on R/A; rs6 Weight 72.57 kg / 159.99 lbs (R); Height 4 ft. 9 in. (144.78 cm) (R); Pain 10/10; 19:03 BP 134 / 76 (auto/); ttb 19:04 Pulse 86 MON; Pulse Ox 95% ; ttb 19:06 BP 139 / 84 (auto/); ttb 19:07 Pulse 86 MON; Resp 18; Pulse Ox 96% on R/A; ttb 19:21 BP 140 / 76 (auto/); ttb 19:21 Pulse 88 MON; Pulse Ox 95% ; ttb 19:36 BP 143 / 79 (auto/); ttb 19:37 Pulse 90 MON; Pulse Ox 94% ; ttb 19:51 BP 132 / 69 (auto/); ttb 19:51 Pulse 88 MON; Pulse Ox 93% ; ttb 20:06 BP 144 / 75 (auto/); ttb 20:07 Pulse 90 MON; Resp 18; Pulse Ox 94% on R/A; Pain 5/10; ttb 20:30 Pulse 96 MON; Pulse Ox 96% ; ttb 21:00 Pulse 92 MON; Pulse Ox 96% on R/A; ttb 21:27 BP 144 / 83 (auto/); ttb 21:29 Pulse 90 MON; Pulse Ox 95% ; ttb 22:18 BP 144 / 79 (auto/); ttb 22:20 Pulse 92 MON; Resp 18 S; Pulse Ox 95% on R/A; ttb 08/18 00:46 BP 147 / 76 (auto/); jp6 00:46 Pulse 98 MON; Pulse Ox 84% ; jp6 00:49 BP 147 / 76; Pulse 96; Resp 16; Pulse Ox 97% ; Pain 2/10; [facility] 08/17 18:24 Body Mass Index 34.62 (72.57 kg, 144.78 cm) rs6 MDM: 08/17 18:22 Undress patient appropriately for examination ordered. sd1 18:23 NS 0.9% 1000 ml IV at 100 mL/hr continuous ordered. sd1 18:23 Ondansetron 4 mg IVP once ordered. sd1 18:23 morphine 4 mg IVP every 15 minutes; Document pain score/vitals after each dose (Hold if sd1 SBP < 90mmHg) x2 ordered. 18:23 Abdomen, Flat\E\Upright,PA Chest Ordered. EDMS 18:23 Amylase Ordered. EDMS 18:23 Basic Metabolic Profile Ordered. EDMS 18:23 CBC with Diff Ordered. EDMS 18:23 Lipase Ordered. EDMS 18:23 Liver Profile Ordered. EDMS 18:23 Prothrombin Time Profile\E\INR Ordered. EDMS 18:23 NOTHING BY MOUTH+DIET ordered. EDMS 18:24 ECG WITH READING ER PHYS+CARDIAG ordered. EDMS 18:25 BED REQUEST+ADM ordered. EDMS 18:39 CIP Ordered. EDMS 18:39 Troponin Ordered. EDMS 19:03 Basic Metabolic Profile Reviewed. sd1 19:03 CBC with Diff Reviewed. sd1 19:03 CIP Reviewed. sd1 19:03 Amylase Reviewed. sd1 19:03 Lipase Reviewed. sd1 19:03 Liver Profile Reviewed. sd1 19:03 Prothrombin Time Profile\E\INR Reviewed. sd1 19:03 Troponin Reviewed. sd1 19:52 Financial registration complete. gb 19:58 [facility] Payment Agreement was scanned into [employer] and attached to record. gb 20:02 NS 0.9% 1000 ml IV at bolus once ordered. cs11 20:04 CT ABD & PELVIS: IV and Oral Contrast Ordered. EDMS 20:16 Diatrizoate Meglumine & Sodium Liquid 10 ml PO once; mix in 290cc of water : 2024 ttb ordered. 20:16 Diatrizoate Meglumine & Sodium Liquid 10 ml PO once; mix in 290cc of water : 2054 ttb ordered. 21:21 Urinalysis Ordered. EDMS 21:21 Urine Culture Ordered. EDMS 01/ 00:05 Dilaudid - HYDROmorphone 0.5 mg IVP once ordered. cs11 00:36 Urinalysis Reviewed. cs11 00:36 Abdomen, Flat\E\Upright,PA Chest Reviewed. cs11 00:36 CT ABD & PELVIS: IV and Oral Contrast Reviewed. cs11 01:40 Admission / Observation Status ordered. EDMS 01:40 NPO DIET ordered. EDMS 01:40 BASIC METABOLIC PROFILE Ordered. EDMS 01:40 CBC WITH DIFFERENTIAL Ordered. EDMS 01:41 Abdomen,Flat Plate KUB Ordered. EDMS 01:42 LACTIC ACID LEVEL, LACTATE Ordered. EDMS 01:51 HEMOGLOBIN A1C Ordered. EDMS 09:34 T-Sheet-- Draft Copy was scanned into [employer] and attached to record. [facility] Administered Medications: 08/17 18:43 Drug: morphine 4 mg Route: IVP; Site: left antecubital; [facility] 19:00 Follow up: Response: No Adverse Reaction; Pain is decreased ttb 18:45 Drug: Ondansetron 4 mg Route: IVP; Site: left antecubital; [facility] 18:46 Drug: NS 0.9% 1000 ml Route: IV; Rate: 100 mL/hr; Site: left antecubital; [facility] 20:05 Drug: NS 0.9% 1000 ml [sodium chloride 0.9 % intravenous solution] Route: IV; Rate: ttb bolus; Site: left antecubital; 20:17 Drug: Diatrizoate Meglumine & Sodium 10 ml [diatrizoate meglumine and diat.sodium 66 ttb %-10 % oral solution (10 mL)] Route: PO; 20:51 Drug: Diatrizoate Meglumine & Sodium 10 ml [diatrizoate meglumine and diat.sodium 66 ttb %-10 % oral solution (10 mL)] Route: PO; 21:29 Drug: morphine 4 mg Route: IVP; Site: left antecubital; ttb 22:00 Follow up: Response: Confirmed pt not driving.; No Adverse Reaction; Pain is decreased ttb 08/18 00:20 Drug: Dilaudid - HYDROmorphone 0.5 mg [hydromorphone 1 mg/mL injection syringe (0.5 cjh mL)] Route: IVP; Site: left antecubital; 00:49 Follow up: BP 147 / 76; Pulse 96 bpm; Resp 16 bpm; Pulse Ox 97% ; Pain 2/10 Adult; [facility] Response: No Adverse Reaction; Pain is decreased; 2/10 Signatures: Dispatcher [employer] Elaine Osorio MD MD sd1 Shelbie Mims RN RN daMargie Liu, Reg Reg gb Isamar WalkerRN RN nick5 Hardeep Herrera DO DO cs11 Anisha Venegas RN RN Anai France RN RN [email or web address] Elaine Mares Jane RN [facility] The chart was reviewed and I authenticate all verbal orders and agree with the evaluation and treatment provided.Attachments: 08/17 19:58 [facility] Payment Agreement gb 08/18 09:34 T-Sheet-- Draft Copy seh Chart Complete MTDD
[2016-08-20] MEDS: metroNIDAZOLE 500 MG in APPROPRIATE DILUENT 1 EA IV SCH ×3 (04:19→21:45)
[2016-08-20] MEDS: HEPARIN SOD (PORCINE) 5000 UNITS/ML VIAL SC SCH ×3 (05:39→21:45)
[2016-08-20 06:05] LABS: BASO % 0.2 % (0.0-1.0); EOS # 0.1 K/mm3 (0.0-0.50); EOS % 3.3 % (0.0-3.0); LARGE UNSTAINED CELL # 0.1 K/mm3 (0.0-0.4); LYMPH # 0.6 K/mm3 (1.5-4.5); LYMPH % 17.4 % (24.0-44.0); MEAN CORPUSCULAR HEMOGLOBIN 31.1 pg (27.0-33.0); MEAN CORPUSCULAR HGB CONC 34.7 g/dl (32.0-36.5); MEAN CORPUSCULAR VOLUME 89.7 fl (80.0-96.0); MONO # 0.2 K/mm3 (0.0-0.8); MONO % 5.5 % (0.0-5.0); NEUTROPHILS # 2.4 K/mm3 (1.8-7.7); NEUTROPHILS % 69.6 % (36.0-66.0); PLATELET COUNT, AUTOMATED 208 k/mm3 (150-450); RED CELL DISTRIBUTION WIDTH 14.1 % (11.5-14.5); WHITE BLOOD COUNT 3.5 K/mm3 (4.0-10.0)
[2016-08-20 06:14] LABS: ANION GAP 7 MEQ/L (8-16); BLOOD UREA NITROGEN 7 MG/DL (7-18); CALCIUM LEVEL 7.2 MG/DL (8.8-10.2); CARBON DIOXIDE LEVEL 27 MEQ/L (21-32); CHLORIDE LEVEL 108 MEQ/L (98-107); CREATININE FOR GFR 0.59 MG/DL (0.55-1.02); GLOMERULAR FILTRATION RATE > 60.0 (>45); GLUCOSE, FASTING 109 MG/DL (80-110); POTASSIUM SERUM 3.5 MEQ/L (3.5-5.1); SODIUM LEVEL 142 MEQ/L (136-145)
[2016-08-20] MEDS: ONDANSETRON 4 MG TAB (S0181) PO PRN ×3 (08:41→22:02)
[2016-08-20] MEDS: PANTOPRAZOLE 40MG INJ (PROTONIX) (C9113) IV SCH (10:31)
[2016-08-20] MEDS: ENALAPRIL MALEATE 10 MG TAB PO SCH (10:36)
--- NOTE | 2016-08-20 11:53 | IPNPDOC ---
Assessment/Plan Date Seen The patient was seen on 08/20/16. Problems Problems: (1) Anemia Status: Acute Problem Text: pt admits to having a bloody bm 1/2 will recheck H&H pt has history of hemorrhoids Has iron deficiency as well has vit b 12 deficiency (2) Ileus Status: Acute Problem Text: of the right sided small bowel etiology unknown could be inflammatory bowel disease could be infective on ceftriaxone and metronidazole though less likely as no fever or elevated white count. will consult surgery continue liquid diet (3) Partial small bowel obstruction Status: Acute Problem Text: pt was started on liquid diet 08/19 but states she is unable to tolerate it well will consult surgery (4) Hypertension Status: Chronic Problem Text: continue home medication (5) Hyperlipidemia Status: Chronic (6) Nephrolithiasis Status: Chronic Problem Text: Has history of lithotripsy bilateral non obstructive renal stones. (7) Diabetes Status: Chronic Problem Text: a1c 5.8 Plan / VTE VTE Prophylaxis Ordered?: Yes Subjective Review of Systems CC/HPI The patient is a 60-year-old female admitted with a reason for visit of Chf, Anemiaa,Colitis. Events since last encounter pt seen and examined, still complaining of abd pain worse over right side of her abd, she had a bowel movement yesterday that she describes as bloody, she is on liquid diet but states she can't tolerate it well. Objective Physical Examination General Exam: Positive: Alert, No Acute Distress Eye Exam: Positive: Conjunctiva & lids normal, EOMI, PERRLA, Negative: Sclera icteric ENT Exam: Positive: Atraumatic, Mucous membr. moist/pink, Pharynx Normal Neck Exam: Positive: Supple, Negative: JVD, thyromegaly Chest Exam: Positive: Clear to auscultation, Normal air movement Heart Exam: Positive: Normal S1, Normal S2, Rate Normal, Regular Rhythm, Negative: Murmurs, Rubs Telemetry: Negative: AV Block, Asystole, Atrial fibrillation, Bradycardia, No significant arrhythmia, Other Telemetry:, PACs, PVCs, Pause, SV Tach, Sinus, Tachycardia Abdomen Exam: Positive: BS Hypoactive, Soft, Negative: Hepatospenomegaly, Tenderness Extremity Exam: Positive: Normal pulses, Negative: Clubbing, Cyanosis, Edema Vital Signs/I&O Vital Signs Date Time Temp Pulse Resp B/P Pulse Ox O2 Delivery O2 Flow Rate FiO2 08/20/16 10:36 137/64 08/20/16 08:52 16 08/19/16 22:00 Room Air 08/19/16 22:00 99.1 90 92 I&O- Last 24 Hours up to 6 AM 08/20/16 06:00 Intake Total 2280 ml Output Total 1150 ml Balance 1130 ml Laboratory Data Labs 24H Laboratory Tests 2 08/20/16 05:45: Anion Gap 7L, White Blood Count 3.5L, Red Blood Count 2.80L, Hemoglobin 8.7L, Hematocrit 25.1L, Mean Corpuscular Volume 89.7, Mean Corpuscular Hemoglobin 31.1 , Mean Corpuscular Hemoglobin Concent 34.7, Red Cell Distribution Width 14.1, Platelet Count 208, Neutrophils (%) (Auto) 69.6H, Lymphocytes (%) (Auto) 17.4L, Monocytes (%) (Auto) 5.5H, Eosinophils (%) (Auto) 3.3H, Basophils (%) (Auto) 0.2 , Neutrophils # (Auto) 2.4, Lymphocytes # (Auto) 0.6L, Monocytes # (Auto) 0.2, Eosinophils # (Auto) 0.1, Basophils # (Auto) 0.0, Blood Urea Nitrogen 7, Creatinine 0.59, Sodium Level 142, Potassium Level 3.5, Chloride Level 108H, Carbon Dioxide Level 27, Calcium Level 7.2L, Glomerular Filtration Rate > 60.0, Large Unclassified Cells # 0.1, Large Unclassified Cells % 4.0 CBC/BMP Laboratory Tests 08/20/16 05:45 Calcium Level 7.2 L, Red Blood Count 2.80 L, Mean Corpuscular Volume 89.7, Mean Corpuscular Hemoglobin 31.1, Mean Corpuscular Hemoglobin Concent 34.7, Red Cell Distribution Width 14.1, Neutrophils (%) (Auto) 69.6 H, Lymphocytes (%) (Auto) 17.4 L, Monocytes (%) (Auto) 5.5 H, Eosinophils (%) (Auto) 3.3 H, Basophils (%) (Auto) 0.2, Neutrophils # (Auto) 2.4, Lymphocytes # (Auto) 0.6 L, Monocytes # ( Auto) 0.2, Eosinophils # (Auto) 0.1, Basophils # (Auto) 0.0 Microbiology Microbiology 08/17/16 Urine Culture - Final, Complete JITENDRA MURPHY DO Aug 20, 2016 11:53
[2016-08-20 14:00] VITALS: BP 158/78
--- NOTE | 2016-08-20 14:37 | EDDOCDS ---
Nurse's Notes [facility] Name: Briseyda Cheng Age: 60 yrs Sex: Female : 1955 Arrival Date: 08/17/2016 Time: 18:16 Bed 14 Private MD: Diagnosis: Ileus, unspecified Presentation: 08/17 18:22 Presenting complaint: Patient states: Abdominal pain starting approximately 3 hours ld5 ago. Increasing in severity since. + nausea. History of twisted bowel and SBO. Suicide/Homicide risk assessment- the patient denies having any suicidal and/or homicidal ideations and does not present with any other emotional, behavioral or mental health complaints. Status: Patient is not a food services director or dependent. Transition of care: patient was not received from another setting of care. 18:22 Acuity: LG Level 3 ld5 18:22 Method Of Arrival: Ambulance ld5 08/18 01:51 Adult Sepsis Screening: The patient does not have new or worsening altered mentation. jp6 Patient's respiratory rate is less than 22. Systolic blood pressure is greater than 100. Patient has a qSOFA score of 0- Negative Sepsis Screen. Triage Assessment: 08/17 18:30 General: Appears uncomfortable. Pain: Location: right upper quadrant and left upper ld5 quadrant Pain currently is 10 out of 10 on a pain scale. Pain does not radiate. Quality of pain is described as sharp, stabbing, Pain began 3 hours ago Is intermittent Noted to be grimacing, moaning. HIV screening NA for this visit Offered previously. Neurological: Level of Consciousness is awake, obeys commands. Respiratory: Airway is patent Respiratory effort is even, unlabored. GI: Abdomen is non- distended Reports upper abdominal pain, nausea. Derm: Skin is intact, Skin is clammy, Skin is pale. Historical: - Allergies: Cipro PO; Indocin; Tomato (Solanum Lycopersicum); Valium; Vioxx; Seasonal allergies; - Home Meds: 1. Vitamin D3 oral oral 800 unit daily 2. enalapril maleate 10 mg Oral tab 1 tab once daily 3. metformin 1,000 mg Oral tab 1 tab 2 times per day 4. hydrochlorothiazide 25 mg Oral tab 1 tab once daily 5. Calcium Citrate 630 mg Oral twice a day 6. Iron CR 650 Oral daily 7. meloxicam 7.5 mg oral tab 1 tab once daily 8. atorvastatin 10 mg oral tab 1 tab once daily 9. gabapentin 300 mg Oral cap 3 times per day 10. potassium citrate 10 mEq (1,080 mg) oral TbER 3 times per day 11. pantoprazole 40 mg oral TbEC 1 tab once daily - PMHx: Anemia; Arthritis; CHF; Colitis; Diabetes - NIDDM: controlled; Diverticulitis; Hypercholesterolemia; Hypertension; Kidney stones; low magnesium; Twisted bowel; Small bowel obstruction; - PSHx: ; Kidney stone removal; - Social history: Smoking status: Patient states former smoker of tobacco. No barriers to communication noted, The patient speaks fluent Amharic, Speaks appropriately for age. - Family history: Not pertinent. - : The pt / caregiver states he / she is not on anticoagulants. Home medication list is obtained from the patient. - Exposure Risk Screening:: None identified. Screenin:44 Screening information is obtained from the patient. Fall risk: No risks identified. ttb Assistance ADL's: requires no assistance with activities of daily living. Abuse/DV Screen: The patient / caregiver reports he/she is: not in a situation that causes fear, pain or injury. Nutritional screening: No deficits noted. Advance Directives: Currently, there is no health care proxy. home support is adequate. Assessment: 18:44 General: Appears distressed, uncomfortable, well nourished, well groomed, Behavior is ttb appropriate for age, cooperative, pleasant. Pain: Location: upper abd. Neurological: Level of Consciousness is awake, alert, Oriented to person, place, time, Speech is normal. Cardiovascular: Heart tones S1 S2 present Rhythm is sinus tachycardia Chest pain is denied. Respiratory: No deficits noted. Airway is patent Respiratory effort is even, unlabored, Breath sounds are clear bilaterally. Denies cough, shortness of breath. GI: Abdomen is non- distended obese, Last BM was August 17, 2016. Bowel sounds present X 4 quads. Abd is soft X 4 quads Abd is tender to palpation in epigastric area, right upper quadrant and left upper quadrant Reports upper abdominal pain, nausea, vomiting. : Denies burning with urination, urinary frequency, urgency. Derm: Skin is normal. Injury Description: No known injury. 19:00 Reassessment: Patient appears in no apparent distress at this time. Patient states ttb feeling better. pt states she feels better. Pain improved. Denies need for more morphine at this time. Son at bedside.. Adult Sepsis Screening: The patient does not have new or worsening altered mentation. Patient's respiratory rate is less than 22. Systolic blood pressure is greater than 100. Patient has a qSOFA score of 0- Negative Sepsis Screen. 20:00 Reassessment: Patient appears in no apparent distress at this time. Patient states ttb feeling better. Patient states symptoms have improved. pt denies nausea at this time. Denies need for pain meds. Pt awaiting CT. Son at bedside. NSR on monitor.. 20:00 Neurological: Level of Consciousness is awake, alert. ttb 20:45 General: Appears in no apparent distress, comfortable, pt resting on stretcher. Denies ttb need for pain meds at this time. States soon as pain is slowly increasing. Pt awaiting CT.. 20:45 Respiratory: No deficits noted. Airway is patent Respiratory effort is even, unlabored. ttb GI: Denies nausea, vomiting. 21:19 Reassessment: Patient appears in no apparent distress at this time. pt states abd pain ttb returning. Pt requests morphine at this time. Pt able to ambulate with steady gait. Denies dizziness. Pt awaiting CT. Tolerated oral contrast well. Denies nausea.. 22:08 General: pt taken to CT. NAD noted. Pt given metformin information sheet. States ttb understanding. . 22:40 Reassessment: Patient appears in no apparent distress at this time. Patient states ttb feeling better. Patient states symptoms have improved. Pain improved after morphine. Pt awaiting results. Son at bedside. NAD noted.. Neurological: Level of Consciousness is awake, alert. Cardiovascular: Chest pain is denied. Respiratory: No deficits noted. Airway is patent. GI: Denies nausea, vomiting. Derm: Skin is normal. Musculoskeletal: Range of motion intact in all extremities. 22:46 General: report given to next Sandra SILVER to continue care. . ttb 23:53 General: Appears in no apparent distress, comfortable, Behavior is appropriate for age, h cooperative, family at bedside, patient reports intermittent pain persists, appears comfortable at this time and is awaiting results. 08/18 00:49 General: pain 2/10, "tolerable" after medication. No visible distress, denies other [facility] needs at this time, awaiting admission. 01:38 Reassessment: Patient appears in no apparent distress at this time. Patient denies pain jp6 at this time. General: Appears comfortable, Behavior is appropriate for age, cooperative. Pain: Denies pain. Neurological: Level of Consciousness is awake, alert, Oriented to person, place, time. Cardiovascular: Capillary refill < 3 seconds. Respiratory: Airway is patent Respiratory effort is even, unlabored, Respiratory pattern is regular, symmetrical. GI: Abdomen is distended, Bowel sounds present X 4 quads. : No deficits noted. Derm: Skin is normal. Musculoskeletal: Range of motion intact in all extremities. Vital Signs: 08/17 18:24 BP 189 / 97 LA Sitting (auto/lg); Pulse 90; Resp 20; Temp 99.7(O); Pulse Ox 97% on R/A; rs6 Weight 72.57 kg (R); Height 4 ft. 9 in. (144.78 cm) (R); Pain 10/10; 19:03 BP 134 / 76 (auto/); ttb 19:04 Pulse 86 MON; Pulse Ox 95% ; ttb 19:06 BP 139 / 84 (auto/); ttb 19:07 Pulse 86 MON; Resp 18; Pulse Ox 96% on R/A; ttb 19:21 BP 140 / 76 (auto/); ttb 19:21 Pulse 88 MON; Pulse Ox 95% ; ttb 19:36 BP 143 / 79 (auto/); ttb 19:37 Pulse 90 MON; Pulse Ox 94% ; ttb 19:51 BP 132 / 69 (auto/); ttb 19:51 Pulse 88 MON; Pulse Ox 93% ; ttb 20:06 BP 144 / 75 (auto/); ttb 20:07 Pulse 90 MON; Resp 18; Pulse Ox 94% on R/A; Pain 5/10; ttb 20:30 Pulse 96 MON; Pulse Ox 96% ; ttb 21:00 Pulse 92 MON; Pulse Ox 96% on R/A; ttb 21:27 BP 144 / 83 (auto/); ttb 21:29 Pulse 90 MON; Pulse Ox 95% ; ttb 22:18 BP 144 / 79 (auto/); ttb 22:20 Pulse 92 MON; Resp 18 S; Pulse Ox 95% on R/A; ttb 08/18 00:46 BP 147 / 76 (auto/); jp6 00:46 Pulse 98 MON; Pulse Ox 84% ; jp6 00:49 BP 147 / 76; Pulse 96; Resp 16; Pulse Ox 97% ; Pain 2/10; [facility] 08/17 18:24 Body Mass Index 34.62 (72.57 kg, 144.78 cm) rs6 Vitals: 08/17 18:24 Log In Time N/A - ambulance arrival. rs6 ED Course: 18:18 Patient visited by Georgiana Bledsoe, Senior Naval Parachutist. deg 18:18 Patient moved to Waiting deg 18:18 Patient moved to 14 deg 18:19 Elaine English MD is Attending Physician. sd1 18:19 Patient visited by Elaine English MD. sd1 18:24 Triage Initiated ld5 18:24 Pt greeted and oriented to ED. Patient advised of names of staff involved in care, rs6 location of call farris, wait times and NPO status. Patient has correct armband on for positive identification. Placed in gown. Bed in low position. Call light in reach. Side rails up X2. mail examiner on. Pulse ox on. NIBP on. 18:25 Patient visited by Gwen Perdomo PCA. rs6 18:32 Patient visited by Isamar Walker RN. ld5 18:33 Amylase Sent. [facility] 18:33 Basic Metabolic Profile Sent. [facility] 18:33 CBC with Diff Sent. [facility] 18:33 Lipase Sent. [facility] 18:33 Liver Profile Sent. [facility] 18:33 Prothrombin Time Profile\\E\\INR Sent. [facility] 18:39 Patient visited by Gwen Perdomo PCA. rs6 18:39 EKG done. (by ED staff). Reviewed by Elaine English MD. rs6 18:44 The patient / caregiver is instructed regarding the plan of care and ED course. ttb 18:46 Inserted saline lock: 20 gauge in left antecubital area and blood collected. The [facility] patient tolerated the procedure well. Labs drawn. (by ED staff). Sent per order to lab. 18:47 Patient visited by Anisha Venegas RN. ttb 19:14 Patient visited by Anisha Venegas RN. ttb 19:36 Attending Physician role handed off by Elaine English MD cs11 19:36 Hardeep Herrera DO is Attending Physician. cs11 19:58 [facility] Payment Agreement was scanned into [email or web address] and attached to record. gb 20:02 Abdomen, Flat\\E\\Upright,PA Chest Returned. EDMS 20:04 Patient visited by Anisha Venegas RN. ttb 20:18 Patient visited by Anisha Venegas RN. ttb 21:21 Patient visited by Anisha Venegas RN. ttb 22:08 Patient visited by Anisha Venegas RN. ttb 22:08 Patient visited by Anisha Venegas RN. ttb 22:46 Patient visited by Anisha Venegas RN. ttb 23:21 Patient visited by Sandra Garcia RN. cj 23:40 CT ABD & PELVIS: IV and Oral Contrast Returned. EDMS 23:53 No procedures done that require assistance. [facility] 08/18 00:14 Aec To MD is Hospitalizing Provider. cs11 01:12 Anai De Paz,ADRIANNE is Primary Nurse. jp6 09:34 T-Sheet-- Draft Copy was scanned into [email or web address] and attached to record. [facility] Administered Medications: 08/17 18:43 Drug: morphine 4 mg Route: IVP; Site: left antecubital; [facility] 19:00 Follow up: Response: No Adverse Reaction; Pain is decreased ttb 18:45 Drug: Ondansetron 4 mg Route: IVP; Site: left antecubital; [facility] 18:46 Drug: NS 0.9% 1000 ml Route: IV; Rate: 100 mL/hr; Site: left antecubital; [facility] 20:05 Drug: NS 0.9% 1000 ml [sodium chloride 0.9 % intravenous solution] Route: IV; Rate: ttb bolus; Site: left antecubital; 20:17 Drug: Diatrizoate Meglumine & Sodium 10 ml [diatrizoate meglumine and diat.sodium 66 ttb %-10 % oral solution (10 mL)] Route: PO; 20:51 Drug: Diatrizoate Meglumine & Sodium 10 ml [diatrizoate meglumine and diat.sodium 66 ttb %-10 % oral solution (10 mL)] Route: PO; 21:29 Drug: morphine 4 mg Route: IVP; Site: left antecubital; ttb 22:00 Follow up: Response: Confirmed pt not driving.; No Adverse Reaction; Pain is decreased ttb 08/18 00:20 Drug: Dilaudid - HYDROmorphone 0.5 mg [hydromorphone 1 mg/mL injection syringe (0.5 cjh mL)] Route: IVP; Site: left antecubital; 00:49 Follow up: BP 147 / 76; Pulse 96 bpm; Resp 16 bpm; Pulse Ox 97% ; Pain 09/27 Adult; cjh Response: No Adverse Reaction; Pain is decreased; 09/27 Intake: Order Results: Lab Order: Amylase; SPEC'M 08/17/16 18:30 Test: AMYLASE; Value: 43; Range: 25-115; Units: U/L; Status: F Lab Order: Basic Metabolic Profile; SPEC' 08/17/16 18:30 Test: GLUCOSE, FASTING; Value: 167; Range: 80-110; Abnormal: Above high normal; Units: MG/DL; Status: F Test: BLOOD UREA NITROGEN; Value: 15; Range: 7-18; Units: MG/DL; Status: F Test: CREATININE FOR GFR; Value: 0.83; Range: 0.55-1.02; Units: MG/DL; Status: F Test: GLOMERULAR FILTRATION RATE; Value: > 60.0; Range: >45; Status: F Test: SODIUM LEVEL; Value: 140; Range: 136-145; Units: MEQ/L; Status: F Test: POTASSIUM SERUM; Value: 4.1; Range: 3.5-5.1; Units: MEQ/L; Status: F Test: CHLORIDE LEVEL; Value: 101; Range: 98-107; Units: MEQ/L; Status: F Test: CARBON DIOXIDE LEVEL; Value: 24; Range: 21-32; Units: MEQ/L; Status: F Test: ANION GAP; Value: 15; Range: 8-16; Units: MEQ/L; Status: F Test: CALCIUM LEVEL; Value: 9.1; Range: 8.8-10.2; Units: MG/DL; Status: F Test Note: ; Units are mL/min/1.73 m2 Chronic Kidney Disease Staging per NKF: Stage I & II GFR >=60 Normal to Mildly Decreased Stage III GFR 30-59 Moderately Decreased Stage IV GFR 15-29 Severely Decreased Stage V GFR <15 Very Little GFR Left ESRD GFR <15 on COMMISSIONING SPECIALIST Lab Order: CBC with Diff; RADHA'Shanna 08/17/16 18:30 Test: WHITE BLOOD COUNT; Value: 9.8; Range: 4.0-10.0; Units: K/mm3; Status: F Test: RED BLOOD COUNT; Value: 3.65; Range: 4.00-5.40; Abnormal: Below low normal; Units: M/mm3; Status: F Test: HEMOGLOBIN; Value: 11.1; Range: 12.0-16.0; Abnormal: Below low normal; Units: g/dl; Status: F Test: HEMATOCRIT; Value: 31.9; Range: 36.0-47.0; Abnormal: Below low normal; Units: %; Status: F Test: MEAN CORPUSCULAR VOLUME; Value: 87.3; Range: 80.0-96.0; Units: fl; Status: F Test: MEAN CORPUSCULAR HEMOGLOBIN; Value: 30.5; Range: 27.0-33.0; Units: pg; Status: F Test: MEAN CORPUSCULAR HGB CONC; Value: 34.9; Range: 32.0-36.5; Units: g/dl; Status: F Test: RED CELL DISTRIBUTION WIDTH; Value: 14.2; Range: 11.5-14.5; Units: %; Status: F Test: PLATELET COUNT, AUTOMATED; Value: 287; Range: 150-450; Units: k/mm3; Status: F Test: NEUTROPHILS %; Value: 82.9; Range: 36.0-66.0; Abnormal: Above high normal; Units: %; Status: F Test: LYMPH %; Value: 10.9; Range: 24.0-44.0; Abnormal: Below low normal; Units: %; Status: F Test: MONO %; Value: 2.8; Range: 0.0-5.0; Units: %; Status: F Test: EOS %; Value: 1.2; Range: 0.0-3.0; Units: %; Status: F Test: BASO %; Value: 0.3; Range: 0.0-1.0; Units: %; Status: F Test: LARGE UNSTAINED CELL %; Value: 2.0; Range: 0.0-4.0; Units: %; Status: F Test: NEUTROPHILS #; Value: 8.1; Range: 1.8-7.7; Abnormal: Above high normal; Units: K/mm3; Status: F Test: LYMPH #; Value: 1.1; Range: 1.5-4.5; Abnormal: Below low normal; Units: K/mm3; Status: F Test: MONO #; Value: 0.3; Range: 0.0-0.8; Units: K/mm3; Status: F Test: EOS #; Value: 0.1; Range: 0.0-0.50; Units: K/mm3; Status: F Test: BASO #; Value: 0.0; Range: 0.0-0.2; Units: K/mm3; Status: F Test: LARGE UNSTAINED CELL #; Value: 0.2; Range: 0.0-0.4; Units: K/mm3; Status: F Lab Order: Lipase; [facility] 08/17/16 18:30 Test: LIPASE; Value: 166; Range: 73-393; Units: U/L; Status: F Lab Order: Liver Profile; [facility] 08/17/16 18:30 Test: AST/SGOT; Value: 15; Range: 15-37; Units: U/L; Status: F Test: ALT/SGPT; Value: 22; Range: 12-78; Units: U/L; Status: F Test: ALKALINE PHOSPHATASE; Value: 86; Range: 45-117; Units: U/L; Status: F Test: BILIRUBIN,TOTAL; Value: 0.8; Range: 0.2-1.0; Units: MG/DL; Status: F Test: BILIRUBIN,DIRECT; Value: 0.2; Range: 0.0-0.2; Units: MG/DL; Status: F Test: TOTAL PROTEIN; Value: 6.7; Range: 6.4-8.2; Units: GM/DL; Status: F Test: ALBUMIN; Value: 4.1; Range: 3.2-5.2; Units: GM/DL; Status: F Test: ALBUMIN/GLOBULIN RATIO; Value: 1.58; Range: 1.00-1.93; Status: F Lab Order: Prothrombin Time Profile\\E\\INR; [facility] 08/17/16 18:30 Test: PROTHROMBIN TIME; Value: 12.7; Range: 12.3-14.5; Units: SECONDS; Status: F Test: INR; Value: 0.94; Status: F Test Note: ; THERAPUTIC HUMAN INR VALUES INDICATIONS NORMAL RANGES PROPHYLAXIS/TREATMENT OF: VENOUS THROMBOSIS 2.0-3.0 PULMONARY EMBOLISM 2.0-3.0 PREVENTION OF SYSTEMIC EMBOLISM FROM: TISSUE HEART VALVES 2.0-3.0 ACUTE MYOCARDIAL INFARCTION 2.0-3.0 VALVULAR HEART DISEASE 2.0-3.0 ATRIAL FIBRILLATION 2.0-3.0 MECHANICAL VALVES(HIGH RISK) 2.5-3.5 RECURRENT MYOCARDIAL INFARCTION 2.5-3.5 Lab Order: CIP; [facility] 08/17/16 18:30 Test: CPK CREATINE PHOSPHOKINASE; Value: 49; Range: 26-192; Units: U/L; Status: F Test: CK-MB VALUE MASS; Value: 2.1; Range: 0.0-3.6; Units: NG/ML; Status: F Test: MB/CK RELATIVE INDEX; Value: 4.28; Range: < OR =4; Abnormal: Above high normal; Status: F Test Note: ; DIAGNOSIS CRITERIA MMB ng/ml Relative Index (RI) NON-AMI < or = 5 N/A ANGLIN ZONE > 5 < or = 4 AMI > 5 > 4 Lab Order: Troponin; [facility] 08/17/16 18:30 Test: TROPONIN I; Value: < 0.02; Range: < 0.10; Units: NG/ML; Status: F Test Note: ; Troponin I Reference Interval for [employer] LOCI: 99th Percentile= 0.00-0.045 ng/ml Risk Stratification: <= 0.10 ng/ml Decreased Risk for Adverse Clinical Events. 0.10-1.50 ng/ml Increased Risk for Adverse Clinical Events. Evaluation of additional criterion and/or repeat testing in 2-6 hours is suggested to rule out myocardial damage. >= 1.50 ng/ml Indicative of Myocardial Injury. Lab Order: Urinalysis; SPEC'M 08/17/16 22:20 Test: APPEARANCE, URINE; Value: CLEAR; Range: CLEAR; Status: F Test: COLOR, URINE; Value: COLORLESS; Range: YELLOW; Status: F Test: PH,URINE; Value: 7.0; Range: 5.0-9.0; Units: UNITS; Status: F Test: SPECIFIC GRAVITY URINE AUTO; Value: 1.011; Range: 1.002-1.035; Status: F Test: PROTEIN, URINE AUTO; Value: NEGATIVE; Range: NEGATIVE; Units: mg/dL; Status: F Test: GLUCOSE, URINE (UA) AUTO; Value: NEGATIVE; Range: NEGATIVE; Units: mg/dL; Status: F Test: KETONE, URINE AUTO; Value: NEGATIVE; Range: NEGATIVE; Units: mg/dL; Status: F Test: UROBILINOGEN, URINE AUTO; Value: 0.2; Range: 0.0-2.0; Units: mg/dL; Status: F Test: BILIRUBIN, URINE AUTO; Value: NEGATIVE; Range: NEGATIVE; Status: F Test: NITRITE, URINE AUTO; Value: NEGATIVE; Range: NEGATIVE; Status: F Test: LEUKOCYTE ESTERASE, URINE AUTO; Value: NEGATIVE; Range: NEGATIVE; Status: F Test: BLOOD, URINE BLOOD; Value: NEGATIVE; Range: NEGATIVE; Status: F Test: WBC, URINE AUTO; Value: 0; Range: 0-3; Units: /HPF; Status: F Test: RBC, URINE AUTO; Value: 0; Range: 0-3; Units: /HPF; Status: F Test: BACTERIA, URINE AUTO; Value: NEGATIVE; Range: NEGATIVE; Status: F Test: SQUAMOUS EPITHELIAL CELL UR AU; Value: 0; Range: 0-6; Units: /HPF; Status: F Test: HYALINE CAST, URINE AUTO; Value: 0; Range: 0-1; Units: /LPF; Status: F Radiology Order: Abdomen, Flat\\E\\Upright,PA Chest Test: Abdomen, Flat\\E\\Upright,PA Chest REASON FOR EXAMINATION: Abdomen Pain; Clinical: Epigastric and abdominal pain.; ; Technique: Upright view of the chest with supine and upright views of the; abdomen and pelvis.; ; Findings: Frontal upright view of the chest demonstrates no acute; cardiopulmonary process or free air below the diaphragm to suspect; pneumoperitoneum. Supine and upright views of the abdomen and pelvis demonstrate; nonspecific bowel gas pattern without obstruction or perforation. No; organomegaly. Calcifications suggesting nephrolithiasis. Skeletal structures; normal for age.; ; Impression:; Nonspecific bowel gas pattern. Nephrolithiasis.; ; ; Signed by; Charlie Ugarte MD 08/17/2016 07:19 P; Radiology Order: CT ABD & PELVIS: IV and Oral Contrast Test: CT ABD & PELVIS: IV and Oral Contrast REASON FOR EXAMINATION: Diverticulitis; ; CLINICAL HISTORY: Abdominal pain.; ; TECHNIQUE: CT abdomen and pelvis following administration of IV contrast.; ; COMPARISON: July 18, 2016.; ; CT ABDOMEN WITH CONTRAST:; Lung bases: No lung base infiltrate or effusion.; Liver: No intrahepatic ductal dilation.; Gallbladder: Normally distended.; Pancreas: No pancreatic duct dilation.; Bowel loops: Several loops of small bowel in the right midabdomen on axial images 73-95, are mildly d; ilated at 3.2 cm, with adjacent ascites, suggesting ileus. However, the etiology of the inflammatory; change is uncertain.; Spleen: Normal size.; Adrenals: Normal size.; Kidneys: There are nonobstructive stones of both kidneys . There is no hydronephrosis bilaterally.; Aorta: Normal caliber.; Peritoneum: No free air.; ; CT PELVIS WITH CONTRAST:; Colon: Multiple colonic diverticula without evidence of diverticulitis.; Appendix: Normal appendix is seen.; Bladder: Normally distended.; Pelvic organs: Unremarkable.; Peritoneum: No fluid.; Skeleton: No acute findings.; ; IMPRESSION:; 1. Ileus versus partial small bowel obstruction within the distal small bowel loops of the right abdo; men, possibly due to inflammatory bowel disease or other inflammatory etiologies. There is mild assoc; iated ascites. Similar findings were described on the July 18 exam.; 2. Bilateral nephrolithiasis without hydronephrosis.; ; Outcome: 08/17 23:53 No special radiology studies were completed. [facility] 08/18 00:15 Decision to Hospitalize by Provider. 11 01:50 Discharge Assessment: Patient awake, alert and oriented x 3. No cognitive and/or jp6 functional deficits noted. Patient verbalized understanding of disposition instructions. patient administered narcotics - yes. Patient was admitted to the hospital or transferred to another facility. The following High Risk Discharge criteria are identified: None. Admitted to Med/Surg accompanied by tech, via stretcher, with chart. Condition: unchanged. Property :Personal belongings accompany Pt. 02:27 Patient left the ED. jp6 Signatures: Dispatcher [employer] EDUT Elaine English MD MD sd1 Georgiana Bledsoe, Senior Naval Parachutist Unit deg Margie Lilly, Reg Reg Isamar Alvarez,RN RN ld5 Sandra Garcia,RN RN [facility] Hardeep Herrera, DO cs11 Anisha Venegas, RN RN ttb Gwen Perdomo, SUPERVISOR AIRCRA[employer]ANING SUPERVISOR [employer]ANING rs6 Anai De Paz,RN RN jp6 Elaine Mares [facility] Chart Complete DAVID
--- NOTE | 2016-08-20 14:37 | EDDOCDS ---
Physician Documentation [facility] Name: Briseyda Cheng Age: 60 yrs Sex: Female : 1955 Arrival Date: 08/17/2016 Time: 18:16 Bed 14 Private MD: Disposition: 08/18/16 00:15 Hospitalization ordered by Ace To for Inpatient Admission. Preliminary diagnosis is Ileus, unspecified. - Bed requested for 4 [place]. - Status is Inpatient Admission. jp6 - Condition is Stable. - Problem is an ongoing problem. - Symptoms are unchanged. Historical: - Allergies: Cipro PO; Indocin; Tomato (Solanum Lycopersicum); Valium; Vioxx; Seasonal allergies; - Home Meds: 1. Vitamin D3 oral oral 800 unit daily 2. enalapril maleate 10 mg Oral tab 1 tab once daily 3. metformin 1,000 mg Oral tab 1 tab 2 times per day 4. hydrochlorothiazide 25 mg Oral tab 1 tab once daily 5. Calcium Citrate 630 mg Oral twice a day 6. Iron CR 650 Oral daily 7. meloxicam 7.5 mg oral tab 1 tab once daily 8. atorvastatin 10 mg oral tab 1 tab once daily 9. gabapentin 300 mg Oral cap 3 times per day 10. potassium citrate 10 mEq (1,080 mg) oral TbER 3 times per day 11. pantoprazole 40 mg oral TbEC 1 tab once daily - PMHx: Anemia; Arthritis; CHF; Colitis; Diabetes - NIDDM: controlled; Diverticulitis; Hypercholesterolemia; Hypertension; Kidney stones; low magnesium; Twisted bowel; Small bowel obstruction; - PSHx: ; Kidney stone removal; - Social history: Smoking status: Patient states former smoker of tobacco. No barriers to communication noted, The patient speaks fluent Canadian, Speaks appropriately for age. - Family history: Not pertinent. - : The pt / caregiver states he / she is not on anticoagulants. Home medication list is obtained from the patient. - Exposure Risk Screening:: None identified. Vital Signs: 08/17 18:24 BP 189 / 97 LA Sitting (auto/lg); Pulse 90; Resp 20; Temp 99.7(O); Pulse Ox 97% on R/A; rs6 Weight 72.57 kg / 159.99 lbs (R); Height 4 ft. 9 in. (144.78 cm) (R); Pain 10/10; 19:03 BP 134 / 76 (auto/); ttb 19:04 Pulse 86 MON; Pulse Ox 95% ; ttb 19:06 BP 139 / 84 (auto/); ttb 19:07 Pulse 86 MON; Resp 18; Pulse Ox 96% on R/A; ttb 19:21 BP 140 / 76 (auto/); ttb 19:21 Pulse 88 MON; Pulse Ox 95% ; ttb 19:36 BP 143 / 79 (auto/); ttb 19:37 Pulse 90 MON; Pulse Ox 94% ; ttb 19:51 BP 132 / 69 (auto/); ttb 19:51 Pulse 88 MON; Pulse Ox 93% ; ttb 20:06 BP 144 / 75 (auto/); ttb 20:07 Pulse 90 MON; Resp 18; Pulse Ox 94% on R/A; Pain 5/10; ttb 20:30 Pulse 96 MON; Pulse Ox 96% ; ttb 21:00 Pulse 92 MON; Pulse Ox 96% on R/A; ttb 21:27 BP 144 / 83 (auto/); ttb 21:29 Pulse 90 MON; Pulse Ox 95% ; ttb 22:18 BP 144 / 79 (auto/); ttb 22:20 Pulse 92 MON; Resp 18 S; Pulse Ox 95% on R/A; ttb 08/18 00:46 BP 147 / 76 (auto/); jp6 00:46 Pulse 98 MON; Pulse Ox 84% ; jp6 00:49 BP 147 / 76; Pulse 96; Resp 16; Pulse Ox 97% ; Pain 2/10; [facility] 08/17 18:24 Body Mass Index 34.62 (72.57 kg, 144.78 cm) rs6 MDM: 08/17 18:22 Undress patient appropriately for examination ordered. sd1 18:23 NS 0.9% 1000 ml IV at 100 mL/hr continuous ordered. sd1 18:23 Ondansetron 4 mg IVP once ordered. sd1 18:23 morphine 4 mg IVP every 15 minutes; Document pain score/vitals after each dose (Hold if sd1 SBP < 90mmHg) x2 ordered. 18:23 Abdomen, Flat\E\Upright,PA Chest Ordered. EDMS 18:23 Amylase Ordered. EDMS 18:23 Basic Metabolic Profile Ordered. EDMS 18:23 CBC with Diff Ordered. EDMS 18:23 Lipase Ordered. EDMS 18:23 Liver Profile Ordered. EDMS 18:23 Prothrombin Time Profile\E\INR Ordered. EDMS 18:23 NOTHING BY MOUTH+DIET ordered. EDMS 18:24 ECG WITH READING ER PHYS+CARDIAG ordered. EDMS 18:25 BED REQUEST+ADM ordered. EDMS 18:39 CIP Ordered. EDMS 18:39 Troponin Ordered. EDMS 19:03 Basic Metabolic Profile Reviewed. sd1 19:03 CBC with Diff Reviewed. sd1 19:03 CIP Reviewed. sd1 19:03 Amylase Reviewed. sd1 19:03 Lipase Reviewed. sd1 19:03 Liver Profile Reviewed. sd1 19:03 Prothrombin Time Profile\E\INR Reviewed. sd1 19:03 Troponin Reviewed. sd1 19:52 Financial registration complete. gb 19:58 [facility] Payment Agreement was scanned into [employer] and attached to record. gb 20:02 NS 0.9% 1000 ml IV at bolus once ordered. cs11 20:04 CT ABD & PELVIS: IV and Oral Contrast Ordered. EDMS 20:16 Diatrizoate Meglumine & Sodium Liquid 10 ml PO once; mix in 290cc of water : 2024 ttb ordered. 20:16 Diatrizoate Meglumine & Sodium Liquid 10 ml PO once; mix in 290cc of water : 2054 ttb ordered. 21:21 Urinalysis Ordered. EDMS 21:21 Urine Culture Ordered. EDMS 01/ 00:05 Dilaudid - HYDROmorphone 0.5 mg IVP once ordered. cs11 00:36 Urinalysis Reviewed. cs11 00:36 Abdomen, Flat\E\Upright,PA Chest Reviewed. cs11 00:36 CT ABD & PELVIS: IV and Oral Contrast Reviewed. cs11 01:40 Admission / Observation Status ordered. EDMS 01:40 NPO DIET ordered. EDMS 01:40 BASIC METABOLIC PROFILE Ordered. EDMS 01:40 CBC WITH DIFFERENTIAL Ordered. EDMS 01:41 Abdomen,Flat Plate KUB Ordered. EDMS 01:42 LACTIC ACID LEVEL, LACTATE Ordered. EDMS 01:51 HEMOGLOBIN A1C Ordered. EDMS 09:34 T-Sheet-- Draft Copy was scanned into [employer] and attached to record. [facility] Administered Medications: 08/17 18:43 Drug: morphine 4 mg Route: IVP; Site: left antecubital; [facility] 19:00 Follow up: Response: No Adverse Reaction; Pain is decreased ttb 18:45 Drug: Ondansetron 4 mg Route: IVP; Site: left antecubital; [facility] 18:46 Drug: NS 0.9% 1000 ml Route: IV; Rate: 100 mL/hr; Site: left antecubital; [facility] 20:05 Drug: NS 0.9% 1000 ml [sodium chloride 0.9 % intravenous solution] Route: IV; Rate: ttb bolus; Site: left antecubital; 20:17 Drug: Diatrizoate Meglumine & Sodium 10 ml [diatrizoate meglumine and diat.sodium 66 ttb %-10 % oral solution (10 mL)] Route: PO; 20:51 Drug: Diatrizoate Meglumine & Sodium 10 ml [diatrizoate meglumine and diat.sodium 66 ttb %-10 % oral solution (10 mL)] Route: PO; 21:29 Drug: morphine 4 mg Route: IVP; Site: left antecubital; ttb 22:00 Follow up: Response: Confirmed pt not driving.; No Adverse Reaction; Pain is decreased ttb 08/18 00:20 Drug: Dilaudid - HYDROmorphone 0.5 mg [hydromorphone 1 mg/mL injection syringe (0.5 cjh mL)] Route: IVP; Site: left antecubital; 00:49 Follow up: BP 147 / 76; Pulse 96 bpm; Resp 16 bpm; Pulse Ox 97% ; Pain 2/10 Adult; [facility] Response: No Adverse Reaction; Pain is decreased; 2/10 Signatures: Dispatcher [employer] Elaine Osorio MD MD sd1 Shelbie Mims RN RN daMargie Liu, Reg Reg gb Isamar WalkerRN RN nick5 Hardeep Herrera DO DO cs11 Anisha Venegas RN RN Anai France RN RN [email or web address] Elaine Mares Jane RN [facility] The chart was reviewed and I authenticate all verbal orders and agree with the evaluation and treatment provided.Attachments: 08/17 19:58 [facility] Payment Agreement gb 08/18 09:34 T-Sheet-- Draft Copy seh Chart Complete MTDD
--- NOTE | 2016-08-20 14:37 | EDDOCDS ---
Physician Documentation [facility] Name: Briseyda Cheng Age: 60 yrs Sex: Female : 1955 Arrival Date: 08/17/2016 Time: 18:16 Bed 14 Private MD: Disposition: 08/18/16 00:15 Hospitalization ordered by Ace To for Inpatient Admission. Preliminary diagnosis is Ileus, unspecified. - Bed requested for 4 [place]. - Status is Inpatient Admission. jp6 - Condition is Stable. - Problem is an ongoing problem. - Symptoms are unchanged. Historical: - Allergies: Cipro PO; Indocin; Tomato (Solanum Lycopersicum); Valium; Vioxx; Seasonal allergies; - Home Meds: 1. Vitamin D3 oral oral 800 unit daily 2. enalapril maleate 10 mg Oral tab 1 tab once daily 3. metformin 1,000 mg Oral tab 1 tab 2 times per day 4. hydrochlorothiazide 25 mg Oral tab 1 tab once daily 5. Calcium Citrate 630 mg Oral twice a day 6. Iron CR 650 Oral daily 7. meloxicam 7.5 mg oral tab 1 tab once daily 8. atorvastatin 10 mg oral tab 1 tab once daily 9. gabapentin 300 mg Oral cap 3 times per day 10. potassium citrate 10 mEq (1,080 mg) oral TbER 3 times per day 11. pantoprazole 40 mg oral TbEC 1 tab once daily - PMHx: Anemia; Arthritis; CHF; Colitis; Diabetes - NIDDM: controlled; Diverticulitis; Hypercholesterolemia; Hypertension; Kidney stones; low magnesium; Twisted bowel; Small bowel obstruction; - PSHx: ; Kidney stone removal; - Social history: Smoking status: Patient states former smoker of tobacco. No barriers to communication noted, The patient speaks fluent Tuval[place], Speaks appropriately for age. - Family history: Not pertinent. - : The pt / caregiver states he / she is not on anticoagulants. Home medication list is obtained from the patient. - Exposure Risk Screening:: None identified. Vital Signs: 08/17 18:24 BP 189 / 97 LA Sitting (auto/lg); Pulse 90; Resp 20; Temp 99.7(O); Pulse Ox 97% on R/A; rs6 Weight 72.57 kg / 159.99 lbs (R); Height 4 ft. 9 in. (144.78 cm) (R); Pain 10/10; 19:03 BP 134 / 76 (auto/); ttb 19:04 Pulse 86 MON; Pulse Ox 95% ; ttb 19:06 BP 139 / 84 (auto/); ttb 19:07 Pulse 86 MON; Resp 18; Pulse Ox 96% on R/A; ttb 19:21 BP 140 / 76 (auto/); ttb 19:21 Pulse 88 MON; Pulse Ox 95% ; ttb 19:36 BP 143 / 79 (auto/); ttb 19:37 Pulse 90 MON; Pulse Ox 94% ; ttb 19:51 BP 132 / 69 (auto/); ttb 19:51 Pulse 88 MON; Pulse Ox 93% ; ttb 20:06 BP 144 / 75 (auto/); ttb 20:07 Pulse 90 MON; Resp 18; Pulse Ox 94% on R/A; Pain 5/10; ttb 20:30 Pulse 96 MON; Pulse Ox 96% ; ttb 21:00 Pulse 92 MON; Pulse Ox 96% on R/A; ttb 21:27 BP 144 / 83 (auto/); ttb 21:29 Pulse 90 MON; Pulse Ox 95% ; ttb 22:18 BP 144 / 79 (auto/); ttb 22:20 Pulse 92 MON; Resp 18 S; Pulse Ox 95% on R/A; ttb 08/18 00:46 BP 147 / 76 (auto/); jp6 00:46 Pulse 98 MON; Pulse Ox 84% ; jp6 00:49 BP 147 / 76; Pulse 96; Resp 16; Pulse Ox 97% ; Pain 2/10; [facility] 08/17 18:24 Body Mass Index 34.62 (72.57 kg, 144.78 cm) rs6 MDM: 08/17 18:22 Undress patient appropriately for examination ordered. sd1 18:23 NS 0.9% 1000 ml IV at 100 mL/hr continuous ordered. sd1 18:23 Ondansetron 4 mg IVP once ordered. sd1 18:23 morphine 4 mg IVP every 15 minutes; Document pain score/vitals after each dose (Hold if sd1 SBP < 90mmHg) x2 ordered. 18:23 Abdomen, Flat\E\Upright,PA Chest Ordered. EDMS 18:23 Amylase Ordered. EDMS 18:23 Basic Metabolic Profile Ordered. EDMS 18:23 CBC with Diff Ordered. EDMS 18:23 Lipase Ordered. EDMS 18:23 Liver Profile Ordered. EDMS 18:23 Prothrombin Time Profile\E\INR Ordered. EDMS 18:23 NOTHING BY MOUTH+DIET ordered. EDMS 18:24 ECG WITH READING ER PHYS+CARDIAG ordered. EDMS 18:25 BED REQUEST+ADM ordered. EDMS 18:39 CIP Ordered. EDMS 18:39 Troponin Ordered. EDMS 19:03 Basic Metabolic Profile Reviewed. sd1 19:03 CBC with Diff Reviewed. sd1 19:03 CIP Reviewed. sd1 19:03 Amylase Reviewed. sd1 19:03 Lipase Reviewed. sd1 19:03 Liver Profile Reviewed. sd1 19:03 Prothrombin Time Profile\E\INR Reviewed. sd1 19:03 Troponin Reviewed. sd1 19:52 Financial registration complete. gb 19:58 [facility] Payment Agreement was scanned into [employer] and attached to record. gb 20:02 NS 0.9% 1000 ml IV at bolus once ordered. cs11 20:04 CT ABD & PELVIS: IV and Oral Contrast Ordered. EDMS 20:16 Diatrizoate Meglumine & Sodium Liquid 10 ml PO once; mix in 290cc of water : 2024 ttb ordered. 20:16 Diatrizoate Meglumine & Sodium Liquid 10 ml PO once; mix in 290cc of water : 2054 ttb ordered. 21:21 Urinalysis Ordered. EDMS 21:21 Urine Culture Ordered. EDMS 01/ 00:05 Dilaudid - HYDROmorphone 0.5 mg IVP once ordered. cs11 00:36 Urinalysis Reviewed. cs11 00:36 Abdomen, Flat\E\Upright,PA Chest Reviewed. cs11 00:36 CT ABD & PELVIS: IV and Oral Contrast Reviewed. cs11 01:40 Admission / Observation Status ordered. EDMS 01:40 NPO DIET ordered. EDMS 01:40 BASIC METABOLIC PROFILE Ordered. EDMS 01:40 CBC WITH DIFFERENTIAL Ordered. EDMS 01:41 Abdomen,Flat Plate KUB Ordered. EDMS 01:42 LACTIC ACID LEVEL, LACTATE Ordered. EDMS 01:51 HEMOGLOBIN A1C Ordered. EDMS 09:34 T-Sheet-- Draft Copy was scanned into [employer] and attached to record. [facility] Administered Medications: 08/17 18:43 Drug: morphine 4 mg Route: IVP; Site: left antecubital; [facility] 19:00 Follow up: Response: No Adverse Reaction; Pain is decreased ttb 18:45 Drug: Ondansetron 4 mg Route: IVP; Site: left antecubital; [facility] 18:46 Drug: NS 0.9% 1000 ml Route: IV; Rate: 100 mL/hr; Site: left antecubital; [facility] 20:05 Drug: NS 0.9% 1000 ml [sodium chloride 0.9 % intravenous solution] Route: IV; Rate: ttb bolus; Site: left antecubital; 20:17 Drug: Diatrizoate Meglumine & Sodium 10 ml [diatrizoate meglumine and diat.sodium 66 ttb %-10 % oral solution (10 mL)] Route: PO; 20:51 Drug: Diatrizoate Meglumine & Sodium 10 ml [diatrizoate meglumine and diat.sodium 66 ttb %-10 % oral solution (10 mL)] Route: PO; 21:29 Drug: morphine 4 mg Route: IVP; Site: left antecubital; ttb 22:00 Follow up: Response: Confirmed pt not driving.; No Adverse Reaction; Pain is decreased ttb 08/18 00:20 Drug: Dilaudid - HYDROmorphone 0.5 mg [hydromorphone 1 mg/mL injection syringe (0.5 cjh mL)] Route: IVP; Site: left antecubital; 00:49 Follow up: BP 147 / 76; Pulse 96 bpm; Resp 16 bpm; Pulse Ox 97% ; Pain 2/10 Adult; [facility] Response: No Adverse Reaction; Pain is decreased; 2/10 Signatures: Dispatcher [employer] Elaine Osorio MD MD sd1 Shelbie Mims RN RN daMargie Liu, Reg Reg gb Isamar WalkerRN RN nick5 Hardeep Herrera DO DO cs11 Anisha Venegas RN RN Anai France RN RN [id number] Elaine Mares Jane RN [facility] The chart was reviewed and I authenticate all verbal orders and agree with the evaluation and treatment provided.Attachments: 08/17 19:58 [facility] Payment Agreement gb 08/18 09:34 T-Sheet-- Draft Copy seh Chart Complete MTDD
--- NOTE | 2016-08-20 17:28 | REP ---
ABDOMEN, FLAT PLATE KUB, TWO VIEWS: HISTORY: Abdominal pain. COMPARISON: 08/18/2016. Contrast material was present in the sigmoid colon and rectum. A small amount of air is present in the small and large intestine. There are no air fluid levels or dilated loops of intestine. There is no pneumoperitoneum. Calcifications are present in the kidneys consistent with nephrolithiasis. IMPRESSION: 1. Nonspecific bowel gas pattern. 2. Bilateral nephrolithiasis. Signed by Seamus Callahan MD 08/20/2016 05:41 P
[2016-08-20 22:00] VITALS: BP 133/66
[2016-08-21] MEDS: cefTRIAXone SOD 1 GM in D5W MINI-BAG PLUS 50 ML IV SCH (00:44)
[2016-08-21] MEDS: NS 1,000 ML IV SCH ×2 (00:44→17:06)
[2016-08-21] MEDS: metroNIDAZOLE 500 MG in APPROPRIATE DILUENT 1 EA IV SCH ×3 (04:06→21:15)
[2016-08-21] MEDS: ONDANSETRON 4 MG TAB (S0181) PO PRN ×4 (04:14→21:14)
[2016-08-21] MEDS: MORPHINE 2 MG/ML 1ML SYRINGE IV PRN ×4 (04:14→21:15)
[2016-08-21 05:53] LABS: BASO % 0.4 % (0.0-1.0); EOS # 0.2 K/mm3 (0.0-0.50); EOS % 4.9 % (0.0-3.0); LARGE UNSTAINED CELL # 0.2 K/mm3 (0.0-0.4); LARGE UNSTAINED CELL % 5.8 % (0.0-4.0); LYMPH # 0.7 K/mm3 (1.5-4.5); LYMPH % 21.8 % (24.0-44.0); MEAN CORPUSCULAR HEMOGLOBIN 31.7 pg (27.0-33.0); MEAN CORPUSCULAR HGB CONC 35.3 g/dl (32.0-36.5); MEAN CORPUSCULAR VOLUME 89.9 fl (80.0-96.0); MONO # 0.2 K/mm3 (0.0-0.8); MONO % 5.5 % (0.0-5.0); NEUTROPHILS % 61.6 % (36.0-66.0); PLATELET COUNT, AUTOMATED 218 k/mm3 (150-450); RED CELL DISTRIBUTION WIDTH 14.4 % (11.5-14.5); WHITE BLOOD COUNT 3.3 K/mm3 (4.0-10.0)
[2016-08-21 06:00] VITALS: BP 124/69
[2016-08-21] MEDS: HEPARIN SOD (PORCINE) 5000 UNITS/ML VIAL SC SCH ×3 (06:03→21:14)
[2016-08-21 06:06] LABS: ANION GAP 9 MEQ/L (8-16); BLOOD UREA NITROGEN 6 MG/DL (7-18); CALCIUM LEVEL 7.2 MG/DL (8.8-10.2); CARBON DIOXIDE LEVEL 25 MEQ/L (21-32); CHLORIDE LEVEL 110 MEQ/L (98-107); CREATININE FOR GFR 0.51 MG/DL (0.55-1.02); GLOMERULAR FILTRATION RATE > 60.0 (>45); GLUCOSE, FASTING 106 MG/DL (80-110); POTASSIUM SERUM 3.3 MEQ/L (3.5-5.1); SODIUM LEVEL 144 MEQ/L (136-145)
--- NOTE | 2016-08-21 06:41 | CR ---
DATE OF CONSULTATION: 08/20/2016 REASON FOR CONSULTATION: Partial small bowel obstruction. HISTORY: The patient is a pleasant 60-year-old woman admitted on August 18 for treatment of right-sided abdominal discomfort with a CT scan suggesting a partial intestinal obstruction. She was admitted and has been maintained on some IV hydration. She was initially kept n.p.o. but has now been advanced to a liquid diet. She reports that she is tolerating liquids, but continues to have some discomfort in the right side of the abdomen. She had been admitted back on July 18 with a similar history. On that occasion, she had had discomfort for only a few hours before she presented compared to a report of 16 hours of pain before presentation on this occasion. She was in the hospital for 3 days during the first episode. She had had some vomiting on that occasion and a nasogastric tube was transiently utilized. Because of the patient's recurrent episode of intestinal obstruction, I am now consulted to evaluate the patient regarding further surgical care. Home medications include: - atorvastatin - cholecalciferol - black Cohosh - enalapril malleate - ferrous sulfate - gabapentin - hydrochlorothiazide - meloxicam - metformin - pantoprazole - potassium citrate ALLERGIES: Are reported to CIPROFLOXACIN, DIAZEPAM, ROFECOXIB, TOMATO and INDOMETHACIN. MEDICAL HISTORY: Significant for diabetes mellitus. She has a history of arthritis and dyslipidemia. She has some hypertension. The patient has had a long history of renal stones and has had several surgical procedures. SURGICAL HISTORY: Significant for section 28 years ago. She has had several open procedures for renal stones with two procedures on the right through large flank incisions and a recent incision in November 2015 done laparoscopically on the left for renal stone. FAMILY HISTORY: Reportedly not significant. SOCIAL HISTORY: Patient is a nonsmoker. She denies alcohol. She reports that she is a vegan. 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 REVIEW OF SYSTEMS: Reveals no history of cardiac or respiratory problems. She denies any history of deep venous thrombosis (DVT) or pulmonary embolus. She had a colonoscopy back in about September that revealed some diverticulosis in the sigmoid colon as well as some hemorrhoids. She does have a history of a previous adenomatous polyp. Remainder of the review of systems is unremarkable. PHYSICAL EXAM: Reveals a pleasant obese woman lying quietly on the hospital bed. Her most recent vital signs show a temperature of 97 with pulse of 85, respirations of 19 and blood pressure of 133/66. Skin is warm and dry. Sclerae are anicteric. Mucous membranes are moist. Neck is supple. Heart: Exam shows a regular rate and rhythm. The lungs are clear. The abdomen is quite obese and protuberant. She has bowel sounds present. She has two long flank scars on the right going around the flank to the back. On the left, she has some shorter more recent scars consistent with some sort of laparoscopic approach. She has an old low transverse scar consistent with a section. The abdomen is soft. She has some mild tenderness to palpation in the right midabdomen fairly laterally. There is no rebound and no guarding. Remainder of the abdomen is soft and nontender. Her laboratory studies from the morning of the show white count of 3.5 with a hemoglobin of 9, hematocrit of 25 and platelet count of 208,000. Differential count showed 70% neutrophils and 17% lymphocytes. Chemistries showed a sodium of 142, potassium 3.5, chloride 108, CO2 of 27, BUN of 7, creatinine of 0.6 and a glucose of 109. Calcium was 7.2. She had a CT scan at the time of presentation. I reviewed the CT scan as well as the one from July 18. On the study during this admission, there is evidence for some dilation of her distal small bowel loops. Just in the terminal ileum, there is an angulation of the bowel as it meets the colon and the caliber is smaller in this area. The appendix is well seen and normal. There was a small amount of free fluid noted adjacent to this area. There appeared to be a loop of the small bowel that was somewhat thickened as well. On the study from July 18, she had fairly diffuse distal small bowel enlargement again with a narrowed area just proximal to the ileocecal valve. This area would seem to be right in the general vicinity of the scars from her previous flank surgery. IMPRESSION: 1. Recurrent partial small bowel obstruction likely secondary to scar tissue from her renal stone surgery. 2. Dyslipidemia. 3. Diabetes mellitus. 4. Hypertension. 5. History of renal stones. 6. Obesity. 7. Anemia. 8. Arthritis. RECOMMENDATIONS: At this point, the patient appears to be improving and is tolerating clear liquids. If she does not improve significantly over the next few days or has evidence of worsening, then I think laparoscopy to evaluate her terminal ileum for a blockage from scar tissue would be prudent. Likewise, if she does well and resolves this but has a recurrence in the near term, I think early intervention with laparoscopy for correction of the obstruction would be most prudent. I advised the patient of this. She seems agreeable to intervention if she has continuing problems. I will be following her for the rest of her hospital stay to see if things progress as we would hope. MTDSis
[2016-08-21] MEDS: PANTOPRAZOLE 40MG INJ (PROTONIX) (C9113) IV SCH (09:59)
[2016-08-21] MEDS: ENALAPRIL MALEATE 10 MG TAB PO SCH (09:59)
[2016-08-21 14:00] VITALS: BP 134/68
[2016-08-21] MEDS ORDERED: POTASSIUM CHLORIDE 10% LIQ 20 MEQ/15 ML UDC PO ONE (14:00)
--- NOTE | 2016-08-21 14:10 | IPNPDOC ---
Assessment/Plan Date Seen The patient was seen on 08/21/16. Problems Problems: (1) Anemia Status: Acute Problem Text: pt admits to having a bloody bm on 08/19 pt has history of hemorrhoids Has iron deficiency as well has vit b 12 deficiency (2) Ileus Status: Acute Problem Text: of the right sided small bowel etiology unknown could be infective on ceftriaxone and metronidazole though less likely as no fever or elevated white count. surgery evaluated pt, recommended to continue diet if pain and nausea don't improve, ex lap will be considered continue liquid diet (3) Partial small bowel obstruction Status: Acute Problem Text: pt was started on liquid diet 2 surgery consulted (4) Hypertension Status: Chronic Problem Text: continue home medication (5) Hyperlipidemia Status: Chronic (6) Nephrolithiasis Status: Chronic Problem Text: Has history of lithotripsy bilateral non obstructive renal stones. (7) Diabetes Status: Chronic Problem Text: a1c 5.8 Plan / VTE VTE Prophylaxis Ordered?: Yes Subjective Review of Systems CC/HPI The patient is a 60-year-old female admitted with a reason for visit of Chf, Anemiaa,Colitis. Events since last encounter pt seen and examined, still on tolerating liquid diet, still having nausea, no vomiting, no bm Constitutional: Denies: Chills, Fever, Malaise, Night Sweats, Weakness Objective Physical Examination General Exam: Positive: Alert, No Acute Distress Eye Exam: Positive: Conjunctiva & lids normal, EOMI, PERRLA, Negative: Sclera icteric ENT Exam: Positive: Atraumatic, Mucous membr. moist/pink, Pharynx Normal Neck Exam: Positive: Supple, Negative: JVD, thyromegaly Chest Exam: Positive: Clear to auscultation, Normal air movement Heart Exam: Positive: Normal S1, Normal S2, Rate Normal, Regular Rhythm, Negative: Murmurs, Rubs Telemetry: Negative: AV Block, Asystole, Atrial fibrillation, Bradycardia, No significant arrhythmia, Other Telemetry:, PACs, PVCs, Pause, SV Tach, Sinus, Tachycardia Abdomen Exam: Positive: BS Hypoactive, Soft, Negative: Hepatospenomegaly, Tenderness Extremity Exam: Positive: Normal pulses, Negative: Clubbing, Cyanosis, Edema Vital Signs/I&O Vital Signs Date Time Temp Pulse Resp B/P Pulse Ox O2 Delivery O2 Flow Rate FiO2 08/21/16 10:20 18 08/21/16 09:59 163/78 08/21/16 06:00 96.7 71 93 Room Air I&O- Last 24 Hours up to 6 AM 08/21/16 06:00 Intake Total 2480 ml Output Total 1400 ml Balance 1080 ml Laboratory Data Labs 24H Laboratory Tests 2 08/21/16 05:16: Anion Gap 9, White Blood Count 3.3L, Red Blood Count 2.86L, Hemoglobin 9.1L, Hematocrit 25.7L, Mean Corpuscular Volume 89.9, Mean Corpuscular Hemoglobin 31.7 , Mean Corpuscular Hemoglobin Concent 35.3, Red Cell Distribution Width 14.4, Platelet Count 218, Neutrophils (%) (Auto) 61.6, Lymphocytes (%) (Auto) 21.8L, Monocytes (%) (Auto) 5.5H, Eosinophils (%) (Auto) 4.9H, Basophils (%) (Auto) 0.4 , Neutrophils # (Auto) 2.0, Lymphocytes # (Auto) 0.7L, Monocytes # (Auto) 0.2, Eosinophils # (Auto) 0.2, Basophils # (Auto) 0.0, Blood Urea Nitrogen 6L, Creatinine 0.51L, Sodium Level 144, Potassium Level 3.3L, Chloride Level 110H, Carbon Dioxide Level 25, Calcium Level 7.2L, Glomerular Filtration Rate > 60.0, Large Unclassified Cells # 0.2, Large Unclassified Cells % 5.8H CBC/BMP Laboratory Tests 08/21/16 05:16 Calcium Level 7.2 L, Red Blood Count 2.86 L, Mean Corpuscular Volume 89.9, Mean Corpuscular Hemoglobin 31.7, Mean Corpuscular Hemoglobin Concent 35.3, Red Cell Distribution Width 14.4, Neutrophils (%) (Auto) 61.6, Lymphocytes (%) (Auto) 21.8 L, Monocytes (%) (Auto) 5.5 H, Eosinophils (%) (Auto) 4.9 H, Basophils (%) (Auto) 0.4, Neutrophils # (Auto) 2.0, Lymphocytes # (Auto) 0.7 L, Monocytes # ( Auto) 0.2, Eosinophils # (Auto) 0.2, Basophils # (Auto) 0.0 Microbiology Microbiology 08/17/16 Urine Culture - Final, Complete JITENDRA MURPHY DO Aug 21, 2016 14:10
[2016-08-21 22:00] VITALS: BP 141/71
[2016-08-22] MEDS: cefTRIAXone SOD 1 GM in D5W MINI-BAG PLUS 50 ML IV SCH (00:56)
[2016-08-22] MEDS: MORPHINE 2 MG/ML 1ML SYRINGE IV PRN ×4 (01:21→18:02)
[2016-08-22] MEDS: ONDANSETRON 4 MG TAB (S0181) PO PRN ×3 (01:21→18:02)
[2016-08-22] MEDS: NS 1,000 ML IV SCH (05:42)
[2016-08-22 06:00] VITALS: BP 155/80
[2016-08-22] MEDS: metroNIDAZOLE 500 MG in APPROPRIATE DILUENT 1 EA IV SCH (06:02)
[2016-08-22] MEDS: HEPARIN SOD (PORCINE) 5000 UNITS/ML VIAL SC SCH ×3 (06:02→21:17)
[2016-08-22 06:42] LABS: BASO % 0.4 % (0.0-1.0); EOS # 0.2 K/mm3 (0.0-0.50); EOS % 4.7 % (0.0-3.0); LARGE UNSTAINED CELL # 0.2 K/mm3 (0.0-0.4); LARGE UNSTAINED CELL % 6.3 % (0.0-4.0); LYMPH # 0.9 K/mm3 (1.5-4.5); LYMPH % 23.9 % (24.0-44.0); MEAN CORPUSCULAR HEMOGLOBIN 30.5 pg (27.0-33.0); MEAN CORPUSCULAR HGB CONC 33.1 g/dl (32.0-36.5); MONO # 0.3 K/mm3 (0.0-0.8); MONO % 7.6 % (0.0-5.0); NEUTROPHILS # 2.2 K/mm3 (1.8-7.7); NEUTROPHILS % 57.1 % (36.0-66.0); PLATELET COUNT, AUTOMATED 205 k/mm3 (150-450); RED CELL DISTRIBUTION WIDTH 14.5 % (11.5-14.5); WHITE BLOOD COUNT 3.9 K/mm3 (4.0-10.0)
[2016-08-22 06:53] LABS: ANION GAP 9 MEQ/L (8-16); BLOOD UREA NITROGEN 6 MG/DL (7-18); CALCIUM LEVEL 7.5 MG/DL (8.8-10.2); CARBON DIOXIDE LEVEL 24 MEQ/L (21-32); CHLORIDE LEVEL 112 MEQ/L (98-107); CREATININE FOR GFR 0.47 MG/DL (0.55-1.02); GLOMERULAR FILTRATION RATE > 60.0 (>45); GLUCOSE, FASTING 91 MG/DL (80-110); POTASSIUM SERUM 3.5 MEQ/L (3.5-5.1); SODIUM LEVEL 145 MEQ/L (136-145)
[2016-08-22] MEDS: PANTOPRAZOLE 40MG INJ (PROTONIX) (C9113) IV SCH (09:32)
[2016-08-22] MEDS: ENALAPRIL MALEATE 10 MG TAB PO SCH (09:33)
--- NOTE | 2016-08-22 11:09 | REP ---
KUB ABDOMEN AND PELVIS: Two KUB films of abdomen and pelvis are performed. Air is scattered throughout a nondistended colon. Air is seen in a nondistended small bowel loop in the right upper quadrant. I do not see significantly dilated bowel loops. A few calculi are again seen in the lower pole of the right kidney. IMPRESSION: No significant bowel dilatation radiographically. Signed by Nikolas Wilson MD 08/22/2016 03:19 P
--- NOTE | 2016-08-22 12:53 | IPNPDOC ---
Assessment/Plan Date Seen The patient was seen on 08/22/16. 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 (7) Diabetes Status: Chronic Problem Text: a1c 5.8 Plan / VTE VTE Prophylaxis Ordered?: Yes Subjective Review of Systems CC/HPI The patient is a 60-year-old female admitted with a reason for visit of Chf, Anemiaa,Colitis. Events since last encounter pt seen and examined, still complaining of right abd pain and some nausea no vomiting, positive bm, tolerating liquid diet but states she only drinks small amounts before getting full Constitutional: Denies: Chills, Fever, Malaise, Night Sweats, Weakness Gastrointestinal: Reports: Abdominal Pain, Nausea Objective Physical Examination General Exam: Positive: Alert, No Acute Distress Eye Exam: Positive: Conjunctiva & lids normal, EOMI, PERRLA, Negative: Sclera icteric ENT Exam: Positive: Atraumatic, Mucous membr. moist/pink, Pharynx Normal Neck Exam: Positive: Supple, Negative: JVD, thyromegaly Chest Exam: Positive: Clear to auscultation, Normal air movement Heart Exam: Positive: Normal S1, Normal S2, Rate Normal, Regular Rhythm, Negative: Murmurs, Rubs Telemetry: Negative: AV Block, Asystole, Atrial fibrillation, Bradycardia, No significant arrhythmia, Other Telemetry:, PACs, PVCs, Pause, SV Tach, Sinus, Tachycardia Abdomen Exam: Positive: Normal bowel sounds, Soft, Tenderness, Negative: Hepatospenomegaly Extremity Exam: Positive: Normal pulses, Negative: Clubbing, Cyanosis, Edema Vital Signs/I&O Vital Signs Date Time Temp Pulse Resp B/P Pulse Ox O2 Delivery O2 Flow Rate FiO2 08/22/16 11:50 18 08/22/16 11:38 Room Air 08/22/16 09:33 150/73 08/22/16 06:00 97.0 72 98 I&O- Last 24 Hours up to 6 AM 08/22/16 06:00 Intake Total 2800 ml Output Total 1400 ml Balance 1400 ml Laboratory Data Labs 24H Laboratory Tests 2 08/22/16 06:05: Anion Gap 9, White Blood Count 3.9L, Red Blood Count 2.83L, Hemoglobin 8.6L, Hematocrit 26.0L, Mean Corpuscular Volume 92.0, Mean Corpuscular Hemoglobin 30.5 , Mean Corpuscular Hemoglobin Concent 33.1, Red Cell Distribution Width 14.5, Platelet Count 205, Neutrophils (%) (Auto) 57.1, Lymphocytes (%) (Auto) 23.9L, Monocytes (%) (Auto) 7.6H, Eosinophils (%) (Auto) 4.7H, Basophils (%) (Auto) 0.4 , Neutrophils # (Auto) 2.2, Lymphocytes # (Auto) 0.9L, Monocytes # (Auto) 0.3, Eosinophils # (Auto) 0.2, Basophils # (Auto) 0.0, Blood Urea Nitrogen 6L, Creatinine 0.47L, Sodium Level 145, Potassium Level 3.5, Chloride Level 112H, Carbon Dioxide Level 24, Calcium Level 7.5L, Glomerular Filtration Rate > 60.0, Large Unclassified Cells # 0.2, Large Unclassified Cells % 6.3H CBC/BMP Laboratory Tests 08/22/16 06:05 Calcium Level 7.5 L, Red Blood Count 2.83 L, Mean Corpuscular Volume 92.0, Mean Corpuscular Hemoglobin 30.5, Mean Corpuscular Hemoglobin Concent 33.1, Red Cell Distribution Width 14.5, Neutrophils (%) (Auto) 57.1, Lymphocytes (%) (Auto) 23.9 L, Monocytes (%) (Auto) 7.6 H, Eosinophils (%) (Auto) 4.7 H, Basophils (%) (Auto) 0.4, Neutrophils # (Auto) 2.2, Lymphocytes # (Auto) 0.9 L, Monocytes # ( Auto) 0.3, Eosinophils # (Auto) 0.2, Basophils # (Auto) 0.0 Microbiology Microbiology 08/17/16 Urine Culture - Final, Complete JITENDRA MURPHY DO Aug 22, 2016 12:53
[2016-08-22] MEDS ORDERED: GASTROGRAFIN SOLUTION 30ML (Q9963) As Ordered ONE (13:03)
[2016-08-22 14:00] VITALS: BP 128/64
--- NOTE | 2016-08-22 16:17 | REP ---
SMALL BOWEL SERIES: Gastrografin was diluted and ingested orally. Two cups were ingested. The stomach distends well as does the duodenal bulb. There is free passage of contrast through the small bowel into the right colon with the right colon visualized at about one hour post injection. I do not see significantly dilated small bowel loops. There is no abnormal displacement of small bowel loops. The contrast was somewhat dilute limiting mucosal evaluation. IMPRESSION: No evidence of small bowel obstruction. Free passage of contrast into the right colon with the right colon visualized approximately one hour post ingestion of contrast. Signed by Nikolas Wilson MD 08/23/2016 01:26 P
[2016-08-22 22:00] VITALS: BP 139/74
[2016-08-23 00:07] LABS: Chitobioside Carbohydrat (ACCA 18 units (0-90); Laminaribioside Carbohyd (ALCA 4 units (0-60); Mannobioside Carbohydrat (AMCA 18 units (0-100); Saccharomyces cerevisiae IgG A 2 units (0-50)
[2016-08-23] MEDS: PERCOCET 5MG/325MG TAB PO PRN ×3 (00:44→15:52)
[2016-08-23] MEDS: NS 1,000 ML IV SCH ×2 (00:44→14:13)
[2016-08-23] MEDS: HEPARIN SOD (PORCINE) 5000 UNITS/ML VIAL SC SCH ×3 (05:27→21:28)
[2016-08-23 06:00] VITALS: BP 157/74
[2016-08-23 07:05] LABS: BASO % 0.7 % (0.0-1.0); EOS # 0.2 K/mm3 (0.0-0.50); LARGE UNSTAINED CELL # 0.2 K/mm3 (0.0-0.4); LARGE UNSTAINED CELL % 3.2 % (0.0-4.0); LYMPH # 1.2 K/mm3 (1.5-4.5); LYMPH % 21.5 % (24.0-44.0); MEAN CORPUSCULAR HEMOGLOBIN 30.4 pg (27.0-33.0); MEAN CORPUSCULAR VOLUME 89.3 fl (80.0-96.0); MONO # 0.3 K/mm3 (0.0-0.8); NEUTROPHILS # 3.3 K/mm3 (1.8-7.7); NEUTROPHILS % 66.5 % (36.0-66.0); PLATELET COUNT, AUTOMATED 247 k/mm3 (150-450); RED CELL DISTRIBUTION WIDTH 15.5 % (11.5-14.5)
[2016-08-23 07:36] LABS: ANION GAP 9 MEQ/L (8-16); BLOOD UREA NITROGEN 8 MG/DL (7-18); CALCIUM LEVEL 8.1 MG/DL (8.8-10.2); CARBON DIOXIDE LEVEL 25 MEQ/L (21-32); CHLORIDE LEVEL 113 MEQ/L (98-107); CREATININE FOR GFR 0.54 MG/DL (0.55-1.02); GLOMERULAR FILTRATION RATE > 60.0 (>45); GLUCOSE, FASTING 97 MG/DL (80-110); POTASSIUM SERUM 3.3 MEQ/L (3.5-5.1); SODIUM LEVEL 147 MEQ/L (136-145)
[2016-08-23] MEDS: PANTOPRAZOLE 40MG INJ (PROTONIX) (C9113) IV SCH (09:46)
[2016-08-23] MEDS: ENALAPRIL MALEATE 10 MG TAB PO SCH (09:46)
--- NOTE | 2016-08-23 13:48 | IPNPDOC ---
Assessment/Plan Date Seen The patient was seen on 08/23/16. 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 (7) Diabetes Status: Chronic Problem Text: a1c 5.8 Plan / VTE VTE Prophylaxis Ordered?: Yes Subjective Review of Systems CC/HPI The patient is a 60-year-old female admitted with a reason for visit of Chf, Anemiaa,Colitis. Events since last encounter pt seen and examined, doing well, continues to complain of nausea and abd pain. tolerating clear liquid diet Objective Physical Examination General Exam: Positive: Alert, No Acute Distress Eye Exam: Positive: Conjunctiva & lids normal, EOMI, PERRLA, Negative: Sclera icteric ENT Exam: Positive: Atraumatic, Mucous membr. moist/pink, Pharynx Normal Neck Exam: Positive: Supple, Negative: JVD, thyromegaly Chest Exam: Positive: Clear to auscultation, Normal air movement Heart Exam: Positive: Normal S1, Normal S2, Rate Normal, Regular Rhythm, Negative: Murmurs, Rubs Telemetry: Negative: AV Block, Asystole, Atrial fibrillation, Bradycardia, No significant arrhythmia, Other Telemetry:, PACs, PVCs, Pause, SV Tach, Sinus, Tachycardia Abdomen Exam: Positive: Normal bowel sounds, Soft, Tenderness, Negative: Hepatospenomegaly Extremity Exam: Positive: Normal pulses, Negative: Clubbing, Cyanosis, Edema Vital Signs/I&O Vital Signs Date Time Temp Pulse Resp B/P Pulse Ox O2 Delivery O2 Flow Rate FiO2 08/23/16 10:20 18 08/23/16 09:47 Room Air 08/23/16 09:46 167/80 08/23/16 06:00 97.6 68 95 I&O- Last 24 Hours up to 6 AM 08/23/16 06:00 Intake Total 3165 ml Output Total 1325 ml Balance 1840 ml Laboratory Data Labs 24H Laboratory Tests 2 08/23/16 06:53: Anion Gap 9, White Blood Count 5.0, Red Blood Count 2.86L, Hemoglobin 8.7L, Hematocrit 25.6L, Mean Corpuscular Volume 89.3, Mean Corpuscular Hemoglobin 30.4 , Mean Corpuscular Hemoglobin Concent 34.0, Red Cell Distribution Width 15.5H, Platelet Count 247, Neutrophils (%) (Auto) 66.5H, Lymphocytes (%) (Auto) 21.5L, Monocytes (%) (Auto) 5.0, Eosinophils (%) (Auto) 3.0, Basophils (%) (Auto) 0.7, Neutrophils # (Auto) 3.3, Lymphocytes # (Auto) 1.2L, Monocytes # (Auto) 0.3, Eosinophils # (Auto) 0.2, Basophils # (Auto) 0.0, Blood Urea Nitrogen 8, Creatinine 0.54L, Sodium Level 147H, Potassium Level 3.3L, Chloride Level 113H, Carbon Dioxide Level 25, Calcium Level 8.1L, Glomerular Filtration Rate > 60.0, Large Unclassified Cells # 0.2, Large Unclassified Cells % 3.2 CBC/BMP Laboratory Tests 08/23/16 06:53 Calcium Level 8.1 L, Red Blood Count 2.86 L, Mean Corpuscular Volume 89.3, Mean Corpuscular Hemoglobin 30.4, Mean Corpuscular Hemoglobin Concent 34.0, Red Cell Distribution Width 15.5 H, Neutrophils (%) (Auto) 66.5 H, Lymphocytes (%) (Auto ) 21.5 L, Monocytes (%) (Auto) 5.0, Eosinophils (%) (Auto) 3.0, Basophils (%) ( Auto) 0.7, Neutrophils # (Auto) 3.3, Lymphocytes # (Auto) 1.2 L, Monocytes # ( Auto) 0.3, Eosinophils # (Auto) 0.2, Basophils # (Auto) 0.0 Microbiology Microbiology 08/17/16 Urine Culture - Final, Complete JITENDRA MURPHY DO Aug 23, 2016 13:48
[2016-08-23 14:00] VITALS: BP 148/68
[2016-08-23 22:00] VITALS: BP 158/84
[2016-08-24] MEDS: PERCOCET 5MG/325MG TAB PO PRN ×4 (00:09→23:49)
[2016-08-24] MEDS: HEPARIN SOD (PORCINE) 5000 UNITS/ML VIAL SC SCH ×3 (05:58→21:56)
[2016-08-24 06:00] VITALS: BP 148/77
[2016-08-24 06:47] LABS: MEAN CORPUSCULAR HEMOGLOBIN 30.5 pg (27.0-33.0); MEAN CORPUSCULAR HGB CONC 34.6 g/dl (32.0-36.5); MEAN CORPUSCULAR VOLUME 88.2 fl (80.0-96.0); PLATELET COUNT, AUTOMATED 257 k/mm3 (150-450); RED CELL DISTRIBUTION WIDTH 14.8 % (11.5-14.5); WHITE BLOOD COUNT 5.1 K/mm3 (4.0-10.0)
[2016-08-24 06:52] LABS: ANION GAP 9 MEQ/L (8-16); BLOOD UREA NITROGEN 6 MG/DL (7-18); CALCIUM LEVEL 8.2 MG/DL (8.8-10.2); CARBON DIOXIDE LEVEL 25 MEQ/L (21-32); CHLORIDE LEVEL 110 MEQ/L (98-107); CREATININE FOR GFR 0.48 MG/DL (0.55-1.02); GLOMERULAR FILTRATION RATE > 60.0 (>45); GLUCOSE, FASTING 102 MG/DL (80-110); POTASSIUM SERUM 3.1 MEQ/L (3.5-5.1); SODIUM LEVEL 144 MEQ/L (136-145)
[2016-08-24 07:49] LABS: EOSINOPHILS 2 % (0-5)
[2016-08-24 07:50] LABS: ANISOCYTOSIS 1+
[2016-08-24] MEDS: PANTOPRAZOLE 40MG INJ (PROTONIX) (C9113) IV SCH (09:04)
[2016-08-24] MEDS: ENALAPRIL MALEATE 10 MG TAB PO SCH (09:04)
--- NOTE | 2016-08-24 12:43 | IPNPDOC ---
Assessment/Plan Date Seen The patient was seen on 08/24/16. 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 * hemoglobin is stable, will continue to monitor no need for transfusion (3) Partial small bowel obstruction Status: Resolved Problem Text: pt was started on liquid diet 08/19 small bowel series was negative (4) Ileus Status: Resolved Problem Text: * of the right sided small bowel etiology unknown * small bowel follow through was negative sbo * continue to advance diet as tolerated (5) Hypertension Status: Chronic Problem Text: continue home medication (6) Hyperlipidemia Status: Chronic (7) Nephrolithiasis Status: Chronic Problem Text: Has history of lithotripsy bilateral non obstructive renal stones. (8) Diabetes Status: Chronic Problem Text: a1c 5.8 Plan / VTE VTE Prophylaxis Ordered?: Yes Subjective Review of Systems CC/HPI The patient is a 60-year-old female admitted with a reason for visit of Chf, Anemiaa,Colitis. Events since last encounter pt seen and examined, doing well, tolerating diet it was advanced to full liquid yesterday, she is tolerating it, states her pain and nausea has improved , denies any vomiting. Objective Physical Examination General Exam: Positive: Alert, No Acute Distress Eye Exam: Positive: Conjunctiva & lids normal, EOMI, PERRLA, Negative: Sclera icteric ENT Exam: Positive: Atraumatic, Mucous membr. moist/pink, Pharynx Normal Neck Exam: Positive: Supple, Negative: JVD, thyromegaly Chest Exam: Positive: Clear to auscultation, Normal air movement Heart Exam: Positive: Normal S1, Normal S2, Rate Normal, Regular Rhythm, Negative: Murmurs, Rubs Telemetry: Negative: AV Block, Asystole, Atrial fibrillation, Bradycardia, No significant arrhythmia, Other Telemetry:, PACs, PVCs, Pause, SV Tach, Sinus, Tachycardia Abdomen Exam: Positive: Normal bowel sounds, Soft, Negative: Hepatospenomegaly Extremity Exam: Positive: Normal pulses, Negative: Clubbing, Cyanosis, Edema Vital Signs/I&O Vital Signs Date Time Temp Pulse Resp B/P Pulse Ox O2 Delivery O2 Flow Rate FiO2 08/24/16 09:55 18 Room Air 08/24/16 09:04 170/79 08/24/16 06:00 97.2 60 97 I&O- Last 24 Hours up to 6 AM 08/24/16 06:00 Intake Total 2940 ml Output Total 2050 ml Balance 890 ml Laboratory Data Labs 24H Laboratory Tests 2 08/24/16 06:05: Anion Gap 9, Anisocytosis 1+, White Blood Count 5.1, Red Blood Count 2.91L, Hemoglobin 8.9L, Hematocrit 25.7L, Mean Corpuscular Volume 88.2, Mean Corpuscular Hemoglobin 30.5, Mean Corpuscular Hemoglobin Concent 34.6, Red Cell Distribution Width 14.8H, Platelet Count 257, Neutrophils (%) (Auto) , Lymphocytes (%) (Auto) , Monocytes (%) (Auto) , Eosinophils (%) (Auto) , Basophils (%) (Auto) , Neutrophils # (Auto) , Lymphocytes # (Auto) , Monocytes # (Auto) , Eosinophils # (Auto) , Basophils # (Auto) , Blood Urea Nitrogen 6L, Creatinine 0.48L, Sodium Level 144, Potassium Level 3.1L, Chloride Level 110H, Carbon Dioxide Level 25, Calcium Level 8.2L, Eosinophils (Manual) 2, Glomerular Filtration Rate > 60.0, Large Unclassified Cells # , Large Unclassified Cells % , Lymphocytes (Manual) 14L, Monocytes (Manual) 11H, Neutrophils 73, Platelet Estimate NORMAL CBC/BMP Laboratory Tests 08/24/16 06:05 Calcium Level 8.2 L, Red Blood Count 2.91 L, Mean Corpuscular Volume 88.2, Mean Corpuscular Hemoglobin 30.5, Mean Corpuscular Hemoglobin Concent 34.6, Red Cell Distribution Width 14.8 H, Neutrophils (%) (Auto) , Lymphocytes (%) (Auto) , Monocytes (%) (Auto) , Eosinophils (%) (Auto) , Basophils (%) (Auto) , Neutrophils # (Auto) , Lymphocytes # (Auto) , Monocytes # (Auto) , Eosinophils # (Auto) , Basophils # (Auto) Microbiology Microbiology 08/17/16 Urine Culture - Final, Complete JITENDRA MURPHY DO Aug 24, 2016 12:43
[2016-08-24] MEDS: hydroCHLOROthiazide 25 MG TAB PO SCH (12:59)
[2016-08-24] MEDS ORDERED: POTASSIUM CHLORIDE 10 MEQ SR TABLET PO ONE ×2 (13:00→16:30)
[2016-08-24 14:00] VITALS: BP 148/70
[2016-08-24 15:36] LABS: MAGNESIUM LEVEL 1.2 MG/DL (1.8-2.4); POTASSIUM SERUM 3.2 MEQ/L (3.5-5.1)
[2016-08-24] MEDS: MAG SULF 1GM/100ML (MAG RUN) 1 GM in APPROPRIATE DILUENT 1 EA IV SCH ×2 (17:15→18:29)
[2016-08-24 22:00] VITALS: BP 156/76
[2016-08-25] MEDS: HEPARIN SOD (PORCINE) 5000 UNITS/ML VIAL SC SCH ×3 (05:32→22:41)
[2016-08-25 06:00] VITALS: BP 156/81
[2016-08-25] MEDS: PERCOCET 5MG/325MG TAB PO PRN ×3 (06:39→22:48)
[2016-08-25 07:03] LABS: BASO % 0.6 % (0.0-1.0); EOS # 0.1 K/mm3 (0.0-0.50); EOS % 2.4 % (0.0-3.0); LARGE UNSTAINED CELL # 0.2 K/mm3 (0.0-0.4); LARGE UNSTAINED CELL % 3.1 % (0.0-4.0); LYMPH # 1.5 K/mm3 (1.5-4.5); LYMPH % 25.1 % (24.0-44.0); MEAN CORPUSCULAR HEMOGLOBIN 29.9 pg (27.0-33.0); MEAN CORPUSCULAR HGB CONC 34.3 g/dl (32.0-36.5); MEAN CORPUSCULAR VOLUME 87.2 fl (80.0-96.0); MONO # 0.3 K/mm3 (0.0-0.8); MONO % 6.2 % (0.0-5.0); NEUTROPHILS # 3.2 K/mm3 (1.8-7.7); NEUTROPHILS % 62.5 % (36.0-66.0); PLATELET COUNT, AUTOMATED 281 k/mm3 (150-450); RED CELL DISTRIBUTION WIDTH 15.6 % (11.5-14.5); WHITE BLOOD COUNT 5.2 K/mm3 (4.0-10.0)
[2016-08-25 07:10] LABS: ANION GAP 10 MEQ/L (8-16); BLOOD UREA NITROGEN 4 MG/DL (7-18); CALCIUM LEVEL 8.7 MG/DL (8.8-10.2); CARBON DIOXIDE LEVEL 27 MEQ/L (21-32); CHLORIDE LEVEL 107 MEQ/L (98-107); CREATININE FOR GFR 0.48 MG/DL (0.55-1.02); GLOMERULAR FILTRATION RATE > 60.0 (>45); GLUCOSE, FASTING 101 MG/DL (80-110); POTASSIUM SERUM 3.4 MEQ/L (3.5-5.1); SODIUM LEVEL 144 MEQ/L (136-145)
[2016-08-25] MEDS: PANTOPRAZOLE 40MG INJ (PROTONIX) (C9113) IV SCH (09:12)
[2016-08-25] MEDS: hydroCHLOROthiazide 25 MG TAB PO SCH (09:12)
[2016-08-25] MEDS: ENALAPRIL MALEATE 10 MG TAB PO SCH (09:13)
[2016-08-25 10:57] LABS: MAGNESIUM LEVEL 1.5 MG/DL (1.8-2.4)
[2016-08-25] MEDS ORDERED: POTASSIUM CHLORIDE 10 MEQ SR TABLET PO ONE ×2 (11:00→13:00)
[2016-08-25] MEDS ORDERED: MAG SULF 1GM/100ML (MAG RUN) 2 GM in APPROPRIATE DILUENT 1 EA IV ONE (12:00)
--- NOTE | 2016-08-25 12:39 | IPNPDOC ---
Assessment/Plan Date Seen The patient was seen on 08/25/16. 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 * hemoglobin is stable, (4) Partial small bowel obstruction Status: Resolved Problem Text: pt was started on liquid diet 08/19 small bowel series was negative will continue regular diet, d/c in 24 to 48 hours (5) Ileus Status: Resolved Problem Text: * of the right sided small bowel etiology unknown * small bowel follow through was negative sbo * continue to advance diet as tolerated (6) Hypertension Status: Chronic Problem Text: continue home medication (7) Hyperlipidemia Status: Chronic (8) Nephrolithiasis Status: Chronic Problem Text: Has history of lithotripsy bilateral non obstructive renal stones. (9) Diabetes Status: Chronic Problem Text: a1c 5.8 Plan / VTE VTE Prophylaxis Ordered?: Yes Subjective Review of Systems CC/HPI The patient is a 60-year-old female admitted with a reason for visit of Chf, Anemiaa,Colitis. Events since last encounter pt seen and examined, doing well, tolerated regular diet, no nausea or vomiting , stating her pain is controlled Objective Physical Examination General Exam: Positive: Alert, No Acute Distress Eye Exam: Positive: Conjunctiva & lids normal, EOMI, PERRLA, Negative: Sclera icteric ENT Exam: Positive: Atraumatic, Mucous membr. moist/pink, Pharynx Normal Neck Exam: Positive: Supple, Negative: JVD, thyromegaly Chest Exam: Positive: Clear to auscultation, Normal air movement Heart Exam: Positive: Normal S1, Normal S2, Rate Normal, Regular Rhythm, Negative: Murmurs, Rubs Telemetry: Negative: AV Block, Asystole, Atrial fibrillation, Bradycardia, No significant arrhythmia, Other Telemetry:, PACs, PVCs, Pause, SV Tach, Sinus, Tachycardia Abdomen Exam: Positive: Normal bowel sounds, Soft, Negative: Hepatospenomegaly Extremity Exam: Positive: Normal pulses, Negative: Clubbing, Cyanosis, Edema Vital Signs/I&O Vital Signs Date Time Temp Pulse Resp B/P Pulse Ox O2 Delivery O2 Flow Rate FiO2 08/25/16 09:13 145/73 08/25/16 07:10 18 Room Air 08/25/16 06:00 97.3 63 97 I&O- Last 24 Hours up to 6 AM 08/25/16 05:59 Intake Total 2000 ml Output Total 3650 ml Balance -1650 ml Laboratory Data Labs 24H Laboratory Tests 2 08/24/16 14:53: Magnesium Level 1.2L 08/25/16 06:17: Magnesium Level 1.5L, Anion Gap 10, White Blood Count 5.2, Red Blood Count 3.15L , Hemoglobin 9.4L, Hematocrit 27.5L, Mean Corpuscular Volume 87.2, Mean Corpuscular Hemoglobin 29.9, Mean Corpuscular Hemoglobin Concent 34.3, Red Cell Distribution Width 15.6H, Platelet Count 281, Neutrophils (%) (Auto) 62.5, Lymphocytes (%) (Auto) 25.1, Monocytes (%) (Auto) 6.2H, Eosinophils (%) (Auto) 2.4, Basophils (%) (Auto) 0.6, Neutrophils # (Auto) 3.2, Lymphocytes # (Auto) 1.5, Monocytes # (Auto) 0.3, Eosinophils # (Auto) 0.1, Basophils # (Auto) 0.0, Blood Urea Nitrogen 4L, Creatinine 0.48L, Sodium Level 144, Potassium Level 3.4L , Chloride Level 107, Carbon Dioxide Level 27, Calcium Level 8.7L, Glomerular Filtration Rate > 60.0, Large Unclassified Cells # 0.2, Large Unclassified Cells % 3.1 CBC/BMP Laboratory Tests 08/24/16 14:53 08/25/16 06:17 Calcium Level 8.7 L, Red Blood Count 3.15 L, Mean Corpuscular Volume 87.2, Mean Corpuscular Hemoglobin 29.9, Mean Corpuscular Hemoglobin Concent 34.3, Red Cell Distribution Width 15.6 H, Neutrophils (%) (Auto) 62.5, Lymphocytes (%) (Auto) 25.1, Monocytes (%) (Auto) 6.2 H, Eosinophils (%) (Auto) 2.4, Basophils (%) ( Auto) 0.6, Neutrophils # (Auto) 3.2, Lymphocytes # (Auto) 1.5, Monocytes # (Auto ) 0.3, Eosinophils # (Auto) 0.1, Basophils # (Auto) 0.0 Microbiology Microbiology 08/17/16 Urine Culture - Final, Complete JITENDRA MURPHY DO Aug 25, 2016 12:39
[2016-08-25 14:00] VITALS: BP 149/95
[2016-08-25 22:00] VITALS: BP 143/82
[2016-08-26 06:00] VITALS: BP 163/82
[2016-08-26] MEDS: HEPARIN SOD (PORCINE) 5000 UNITS/ML VIAL SC SCH ×2 (06:06→13:04)
[2016-08-26] MEDS: PERCOCET 5MG/325MG TAB PO PRN ×2 (06:10→13:47)
[2016-08-26 07:06] LABS: BASO % 0.3 % (0.0-1.0); EOS # 0.1 K/mm3 (0.0-0.50); EOS % 2.1 % (0.0-3.0); LARGE UNSTAINED CELL # 0.2 K/mm3 (0.0-0.4); LARGE UNSTAINED CELL % 3.3 % (0.0-4.0); LYMPH # 1.3 K/mm3 (1.5-4.5); MEAN CORPUSCULAR HEMOGLOBIN 30.5 pg (27.0-33.0); MEAN CORPUSCULAR HGB CONC 35.4 g/dl (32.0-36.5); MONO # 0.3 K/mm3 (0.0-0.8); MONO % 5.9 % (0.0-5.0); NEUTROPHILS # 3.2 K/mm3 (1.8-7.7); NEUTROPHILS % 62.3 % (36.0-66.0); PLATELET COUNT, AUTOMATED 278 k/mm3 (150-450); RED CELL DISTRIBUTION WIDTH 14.7 % (11.5-14.5); WHITE BLOOD COUNT 5.1 K/mm3 (4.0-10.0)
[2016-08-26 07:26] LABS: ALBUMIN 3.3 GM/DL (3.2-5.2); ALBUMIN/GLOBULIN RATIO 1.03 (1.00-1.93); ALKALINE PHOSPHATASE 66 U/L (45-117); ALT/SGPT 23 U/L (12-78); ANION GAP 8 MEQ/L (8-16); AST/SGOT 15 U/L (15-37); BILIRUBIN,TOTAL 0.6 MG/DL (0.2-1.0); BLOOD UREA NITROGEN 6 MG/DL (7-18); CALCIUM LEVEL 8.8 MG/DL (8.8-10.2); CARBON DIOXIDE LEVEL 30 MEQ/L (21-32); CHLORIDE LEVEL 102 MEQ/L (98-107); CREATININE FOR GFR 0.57 MG/DL (0.55-1.02); GLOMERULAR FILTRATION RATE > 60.0 (>45); GLUCOSE, FASTING 122 MG/DL (80-110); MAGNESIUM LEVEL 1.5 MG/DL (1.8-2.4); POTASSIUM SERUM 3.5 MEQ/L (3.5-5.1); SODIUM LEVEL 140 MEQ/L (136-145); TOTAL PROTEIN 6.5 GM/DL (6.4-8.2)
[2016-08-26] MEDS: PANTOPRAZOLE 40MG INJ (PROTONIX) (C9113) IV SCH (08:59)
[2016-08-26 09:01] VITALS: BP 139/72
[2016-08-26] MEDS: ENALAPRIL MALEATE 10 MG TAB PO SCH (09:01)
[2016-08-26] MEDS: hydroCHLOROthiazide 25 MG TAB PO SCH (09:01)
[2016-08-26] MEDS: MAG SULF 1GM/100ML (MAG RUN) 1 GM in APPROPRIATE DILUENT 1 EA IV SCH ×2 (11:23→13:03)
--- NOTE | 2016-08-26 19:13 | DSES ---
DATE OF ADMISSION: 08/18/2016 DATE OF DISCHARGE: 08/26/2016 PRIMARY CARE PROVIDER: Halley Garcia MD REASON FOR ADMISSION: Abdominal pain. FINAL DIAGNOSES: 1. Partial small bowel obstruction, resolved. 2. Hypomagnesemia. 3. Hypokalemia. 4. Anemia. 5. Ileus. 6. Hypertension. 7. Hyperlipidemia. 8. History of nephrolithiasis. 9. Diabetes. 10. Arthritis. 11. Recent admission for small bowel obstruction. CONSULTATIONS DURING ADMISSION: Dr. Mata was consulted. Reason for consultation partial small bowel obstruction. HISTORY OF PRESENT ILLNESS: The patient is a 60-year-old female who recently presented to the emergency room and was admitted for partial small bowel obstruction under surgery service. Nasogastric (NG) tube was placed and the patient was kept nothing by mouth until it resolved and when she tolerated diet she was discharged home. The patient returned back a week later for similar symptoms. She stated she has been having colicky right upper quadrant pain for the past 16 hours, getting progressively worse. She has been having some nausea associated with the pain. Has only been able to tolerate water, has not been able to eat. Denies any fevers, chills, any diarrhea. She is admitted under hospitalist service this time. HOSPITAL COURSE: CT scan of the abdomen and pelvis were done in the emergency room which showed ileus versus partial small bowel obstruction. The patient was made nothing by mouth initially. It was thought that it was inflammatory versus infectious. She was started on ceftriaxone and metronidazole. She remained on antibiotics for 2-3 more days. However, it was felt that the patient did not have infection. She did not any fevers and her symptoms remained unchanged. Dr. Mata was consulted after she continued to have pain and was unable to tolerate her diet. She was watched for another 2 days. Diet was advanced. She underwent a small bowel followthrough which was negative. Once the patient was able to tolerate diet she was discharged. DISCHARGE INSTRUCTIONS: She is to followup with primary care provider in 1 week. Continue home medication. DISCHARGE CONDITION: Stable.
== END 2016-08-26 15:30 | disposition home or self-care (01) | DRG 247 ==
LOC: M ED 18:16 → M ED INP 08-18 01:36 → M MSPAV 08-18 02:28
PROVIDERS: ADMIT Internal Medicine; ATTEND Internal Medicine
DX: K56.5 Intestinal adhesions [bands] with obstruction (postinfection) (principal); I10 Essential (primary) hypertension; E83.42 Hypomagnesemia; E53.8 Deficiency of other specified B group vitamins; E11.9 Type 2 diabetes mellitus without complications; D50.9 Iron deficiency anemia, unspecified; N20.0 Calculus of kidney; E66.9 Obesity, unspecified; E87.6 Hypokalemia; E78.5 Hyperlipidemia, unspecified; Z79.84 Long term (current) use of oral hypoglycemic drugs; Z88.1 Allergy status to other antibiotic agents; Z88.8 Allergy status to other drugs, medicaments and biological substances; Z91.018 Allergy to other foods; K56.7 Ileus, unspecified

== ENCOUNTER → 2016-09-05 | Outpatient (CLI) | payer MEDICAID ==
[2016-09-05 15:12] LABS: ANION GAP 10 MEQ/L (8-16); BLOOD UREA NITROGEN 14 MG/DL (7-18); CALCIUM LEVEL 9.3 MG/DL (8.8-10.2); CARBON DIOXIDE LEVEL 30 MEQ/L (21-32); CHLORIDE LEVEL 101 MEQ/L (98-107); GLOMERULAR FILTRATION RATE > 60.0 (>45); GLUCOSE, FASTING 118 MG/DL (80-110); MAGNESIUM LEVEL 1.3 MG/DL (1.8-2.4); POTASSIUM SERUM 4.6 MEQ/L (3.5-5.1); SODIUM LEVEL 141 MEQ/L (136-145)
== END ==
LOC: M LAB 13:49
PROVIDERS: ATTEND Physician Assistant Medical
DX: E87.6 Hypokalemia (principal); E83.42 Hypomagnesemia

== ENCOUNTER 2016-09-10 16:06 | Emergency (ER) | payer MEDICAID ==
[2016-09-10] MEDS ORDERED: ONDANSETRON 4MG/2ML VIAL (J2405) As Ordered ONE (18:19)
[2016-09-10] MEDS ORDERED: KETOROLAC 30 MG/ML VIAL (J1885) As Ordered ONE (18:19)
[2016-09-10 18:36] LABS: BASO # 0.1 K/mm3 (0.0-0.2); BASO % 0.7 % (0.0-1.0); EOS # 0.1 K/mm3 (0.0-0.50); EOS % 0.9 % (0.0-3.0); LARGE UNSTAINED CELL # 0.2 K/mm3 (0.0-0.4); LARGE UNSTAINED CELL % 1.4 % (0.0-4.0); LYMPH # 1.4 K/mm3 (1.5-4.5); MEAN CORPUSCULAR HEMOGLOBIN 29.3 pg (27.0-33.0); MEAN CORPUSCULAR HGB CONC 32.9 g/dl (32.0-36.5); MEAN CORPUSCULAR VOLUME 89.2 fl (80.0-96.0); MONO # 0.4 K/mm3 (0.0-0.8); MONO % 3.2 % (0.0-5.0); NEUTROPHILS # 11.2 K/mm3 (1.8-7.7); NEUTROPHILS % 84.8 % (36.0-66.0); PLATELET COUNT, AUTOMATED 355 k/mm3 (150-450); RED CELL DISTRIBUTION WIDTH 15.7 % (11.5-14.5); WHITE BLOOD COUNT 13.2 K/mm3 (4.0-10.0)
[2016-09-10 18:42] LABS: INR 0.85
[2016-09-10 19:06] LABS: ALBUMIN 4.1 GM/DL (3.2-5.2); ALBUMIN/GLOBULIN RATIO 1.32 (1.00-1.93); ALKALINE PHOSPHATASE 83 U/L (45-117); ALT/SGPT 24 U/L (12-78); ANION GAP 18 MEQ/L (8-16); AST/SGOT 14 U/L (15-37); BILIRUBIN,DIRECT 0.2 MG/DL (0.0-0.2); BILIRUBIN,TOTAL 0.7 MG/DL (0.2-1.0); BLOOD UREA NITROGEN 13 MG/DL (7-18); CALCIUM LEVEL 9.4 MG/DL (8.8-10.2); CARBON DIOXIDE LEVEL 22 MEQ/L (21-32); CHLORIDE LEVEL 103 MEQ/L (98-107); CREATININE FOR GFR 0.87 MG/DL (0.55-1.02); GLOMERULAR FILTRATION RATE > 60.0 (>45); GLUCOSE, FASTING 184 MG/DL (80-110); POTASSIUM SERUM 3.7 MEQ/L (3.5-5.1); SODIUM LEVEL 143 MEQ/L (136-145); TOTAL PROTEIN 7.2 GM/DL (6.4-8.2)
[2016-09-10] MEDS ORDERED: ISOVUE-370 76% 100ML VIAL (Q9967) As Ordered ONE (19:28)
[2016-09-10] MEDS ORDERED: METOCLOPRAMIDE INJ 10MG/2ML VIAL (J2765) As Ordered ONE (19:36)
[2016-09-10] MEDS ORDERED: MORPHINE 4 MG/ML 1ML SYRINGE As Ordered ONE (19:36)
--- NOTE | 2016-09-10 20:30 | REPUSA ---
CLINICAL HISTORY: Abdominal pain TECHNIQUE : A CT of the abdomen and pelvis was performed following the administration of oral and int ravenous contrast from the level of the heart to the proximal femoral diaphyses. Multiplanar reformat s were also obtained in coronal and sagittal projections. COMPARISON: CT abdomen pelvis 07/18/2016. FINDINGS: LOWER CHEST: The lung bases are clear. Heart is normal in size. No pleural or pericardial effusion is seen. LIVER: The liver is normal in size and contour. No hepatic lesion is seen. The portal and hepatic vei ns are patent. BILIARY SYSTEM: No intrahepatic biliary ductal dilatation is seen. The common duct is normal in calib er. The gallbladder is unremarkable with no focal or diffuse wall thickening seen. No pericholecystic fluid is seen. No calcified biliary calculi are identified. PANCREAS: The pancreas is normal in size, contour and density. No solid or cystic pancreatic mass is seen. No pancreatic duct dilatation is seen. SPLEEN: The spleen is normal in size and without focal lesion. ADRENALS: The adrenal glands are unremarkable. KIDNEYS/URETERS: The kidneys are normal in size with a stable subcentimeter or focal cysts. Stable bi lateral stones measuring up to 6 mm right lower pole and 4 mm left interpole; without hydronephrosis. URINARY BLADDER: The urinary bladder is unremarkable without calcified stone, wall thickening or dive rticula seen. UTERUS/ADNEXA: Within normal size limits with no suspicious lesion. AORTA AND ILIAC ARTERIES: No aneurysmal dilatation of the aorta or iliac arteries is seen. INFERIOR VENA CAVA AND PELVIC VEINS: No deep venous thrombosis is seen. LYMPH NODES: No enlarged adenopathy. GASTROINTESTINAL: Stomach, duodenum, and proximal small bowel normal in caliber. Slight increased num sal of moderately dilated, unopacified fluid-filled small bowel loops in the right hemiabdomen and lo wer quadrant, with transition toward the terminal ileum, and relative collapse of the colon. Colonic diverticulosis noted without findings of acute diverticulosis. PERITONEUM/RETROPERITONEUM: No ascites or suspicious fluid collection, extraluminal air, or suspiciou s mass. ABDOMINAL/PELVIC WALL: No hernia is identified. OSSEOUS STRUCTURES/SOFT TISSUES: No suspicious osseous lesion, acute fracture, or soft tissue abnorma lity. Multilevel moderate degenerative spurring of the lower thoracic spine. IMPRESSION : Partial small bowel obstruction again noted as described, slightly increased from prior study. Stable remaining findings as described.
--- NOTE | 2016-09-10 20:31 | ECGEPIP ---
Stationary ECG Study [facility] - ED Test Date: 2016-09-10 Pat Name: WES LEW Department: Room: - Gender: F [employer]: ruth ann : 1955 Requested By: Bhavin Limon PA-C Order Number: [id number] Reading MD: Elaine English Measurements Intervals [place] Rate: 63 P: -5 NC: 135 QRS: 5 QRSD: 82 T: 8 QT: 407 QTc: 418 Interpretive Statements SINUS RHYTHM MINIMAL ST DEPRESSION DECREASED RATE 08/17/16 Electronically Signed On 09-10-2016 20:30:38 EST by Elaine English
[2016-09-10] MEDS ORDERED: OXYCODONE/APAP 5MG/325MG(BULK) 1 TAB TAB As Ordered ONE (21:48)
--- NOTE | 2016-09-10 22:05 | EDDOCDS ---
Physician Documentation [facility] Name: Briseyda Cheng Age: 60 yrs Sex: Female : 1955 Arrival Date: 09/10/2016 Time: 16:06 Bed I6 Private MD: Halley Garcia A Disposition: 09/10/16 21:38 Discharged to Home/Self Care. Impression: Generalized abdominal pain - partial chronic SBO. - Condition is Stable. - Discharge Instructions: Abdominal Pain, Adult, Clear Liquid Diet. - Prescriptions for Reglan 10 mg Oral Tablet - take 1 tablet by ORAL route every 6 hours take 30 minutes before meals and at bedtime; 20 tablet. - Medication Reconciliation, Local Pharmacy Hours form. - Follow up: Jacoby June MD; When: Tomorrow; Reason: Wound/Symptom Recheck, Recheck today's complaints, Worsening of conditions, Continuance of care. - Problem is an acute exacerbation. - Symptoms have improved. Historical: - Allergies: Cipro PO (Hives); SEASONAL ALLERGIES; Indocinhypertension; Valiumhyperactivity; VioxxCHF; Tomato (Solanum Lycopersicum); - Home Meds: 1. atorvastatin 10 mg oral tab 1 tab once daily (Last dose: 09/09/2016 19:00) 2. Calcium Citrate 630 mg Oral twice a day (Last dose: 09/10/2016 07:00) 3. enalapril maleate 10 mg Oral tab 1 tab once daily (Last dose: 09/10/2016 07:00) 4. gabapentin 300 mg Oral cap 3 times per day (Last dose: 09/10/2016 07:00) 5. hydrochlorothiazide 25 mg Oral tab 1 tab once daily (Last dose: 09/10/2016 07:00) 6. Iron CR 65 mg Oral daily (Last dose: 09/10/2016 07:00) 7. meloxicam 7.5 mg oral tab 1 tab once daily (Last dose: 09/10/2016 07:00) 8. metformin 1,000 mg Oral tab 1 tab 2 times per day (Last dose: 09/10/2016 07:00) 9. pantoprazole 40 mg oral TbEC 1 tab once daily (Last dose: 09/10/2016 07:00) 10. potassium citrate 10 mEq (1,080 mg) oral TbER 3 times per day (Last dose: 09/10/2016 07:00) 11. Vitamin D3 oral 800 unit daily (Last dose: 09/10/2016 07:00) - PMHx: Twisted bowel; Anemia; Kidney stones; Hypercholesterolemia; low magnesium; Arthritis; CHF; Colitis; Diabetes - NIDDM: controlled; Diverticulitis; Hypertension; kidney surgery bilateral; small bowel obstruction; - PSHx: ; Kidney stone removal; tonsilectomy; - Social history: Smoking status: Patient states was never smoker of tobacco. No barriers to communication noted, The patient speaks fluent [place]i, Speaks appropriately for age. - Family history: Not pertinent. - : The pt / caregiver states he / she is not on anticoagulants. Home medication list is obtained from the patient. - Exposure Risk Screening:: None identified. Vital Signs: 09/10 16:08 BP 181 / 88; Pulse 71; Resp 20 S; Temp 99.0(O); Pulse Ox 99% on R/A; Weight 72.57 kg / dd6 159.99 lbs (R); Height 4 ft. 10 in. (147.32 cm) (R); 19:46 BP 148 / 78; Pulse 88; Resp 20 S; Pulse Ox 97% on R/A; Pain 4/10; ms2 21:59 BP 136 / 78; Pulse 101; Resp 20 S; Temp 99.3(T); Pulse Ox 94% on R/A; Pain 3/10; ms2 16:08 Body Mass Index 33.44 (72.57 kg, 147.32 cm) dd6 MDM: 17:34 [facility] Payment Agreement was scanned into [employer] and attached to record. gb 17:58 Ondansetron 4 mg IVP once ordered. cc10 17:58 ketorolac 30 mg IVP once ordered. cc10 17:58 IV Saline Lock ordered. cc10 17:58 Undress patient appropriately for examination ordered. cc10 17:58 NS 0.9% 1000 ml IV at 250 mL/hr continuous ordered. cc10 17:59 Basic Metabolic Profile Ordered. EDMS 17:59 CBC with Diff Ordered. EDMS 17:59 Lipase Ordered. EDMS 17:59 Liver Profile Ordered. EDMS 17:59 Partial Thromboplastin Time Ordered. EDMS 17:59 Prothrombin Time Profile\E\INR Ordered. EDMS 17:59 Urinalysis Ordered. EDMS 17:59 Cardiac Marker Panel Ordered. EDMS 17:59 Troponin Ordered. EDMS 17:59 Urine Culture Ordered. EDMS 17:59 Abdomen, Flat\E\Upright,PA Chest Ordered. EDMS 18:00 NOTHING BY MOUTH+DIET ordered. EDMS 18:00 ECG WITH READING ER PHYS+CARDIAG ordered. EDMS 18:11 Financial registration complete. gb 19:24 Basic Metabolic Profile Reviewed. cc10 19:24 CBC with Diff Reviewed. cc10 19:24 Liver Profile Reviewed. cc10 19:24 Partial Thromboplastin Time Reviewed. cc10 19:24 Prothrombin Time Profile\E\INR Reviewed. cc10 19:24 Cardiac Marker Panel Reviewed. cc10 19:24 Lipase Reviewed. cc10 19:25 Metoclopramide 10 mg IV at 40 mg/hr once over 15 mins ordered. cc10 19:26 morphine 4 mg IVP once ordered. cc10 19:27 CT ABD & PELVIS: IV Contrast Only Ordered. EDMS 21:39 oxyCODONE-acetaminophen 4 pack 5 mg-325 mg 1 packets PO once; Dispense with pt, take as cc10 per instruction on package ordered. Administered Medications: 18:33 Drug: Ondansetron 4 mg [ondansetron HCl 2 mg/mL intravenous solution (2 mL)] Route: ms18 IVP; Site: right antecubital; 18:33 Drug: ketorolac 30 mg [ketorolac 30 mg/mL (1 mL) injection solution (1 mL)] Route: IVP; ms18 Site: right antecubital; 18:33 Drug: NS 0.9% 1000 ml [sodium chloride 0.9 % intravenous solution] Route: IV; Rate: 250 ms18 mL/hr; Site: right antecubital; 19:42 Drug: morphine 4 mg [morphine 4 mg/mL intravenous cartridge (1 mL)] Route: IVP; Site: ms2 left antecubital; 19:46 Follow up: BP 148 / 78; Pulse 88 bpm; Resp 20 bpm Spontaneous; Pulse Ox 97% RA; Pain ms2 4/10 Adult; no change 19:45 Drug: Metoclopramide 10 mg [metoclopramide 5 mg/mL injection solution] Route: IV; Rate: ms2 40 mg/hr; Infused Over: 15 mins; Site: left antecubital; 21:51 Drug: oxyCODONE-acetaminophen 4 pack 1 packets [oxycodone-acetaminophen 5 mg-325 mg ms2 tablet (1 tabs)] {Co-Signature: [id number] (Cira Calvillo RN).} Route: PO; Signatures: Dispatcher [employer] EDMS Jude Spain RN RN ms2 Audreypetraadelso, Margie, Reg Reg gb Tana Stevenson RN RN lf1 Bhavin Limon, PA-C PA-C cc10 Cira Calvillo RN RN ms18 Cira Calvillo RN ms18 The chart was reviewed and I authenticate all verbal orders and agree with the evaluation and treatment provided.Attachments: 17:34 [facility] [place] gb MTDD
--- NOTE | 2016-09-10 22:06 | EDDOCDS ---
Nurse's Notes [facility] Name: Wes Cheng Age: 60 yrs Sex: Female : 1955 Arrival Date: 09/10/2016 Time: 16:06 Bed I6 / 28 Private MD: Halley Garcia A Diagnosis: Generalized abdominal pain-partial chronic SBO Presentation: 09/10 16:21 Presenting complaint: Patient states: Abdominal pain and vomiting that began at 1500 lf1 today. Pt. reports history of SBO and feels that these symptoms are similar. Pt. reports pain is currently 8/10, actively vomiting in triage area. Pain in R/L upper abdomen. Adult Sepsis Screening: The patient does not have new or worsening altered mentation. Patient's respiratory rate is less than 22. Systolic blood pressure is greater than 100. Patient has a qSOFA score of 0- Negative Sepsis Screen. Suicide/Homicide risk assessment- the patient denies having any suicidal and/or homicidal ideations and does not present with any other emotional, behavioral or mental health complaints. Status: Patient is not a social services director or dependent. Transition of care: patient was not received from another setting of care. 16:21 Acuity: LG Level 3 lf1 16:21 Method Of Arrival: Wheelchair lf1 Triage Assessment: 16:28 General: Appears distressed, ill, Behavior is cooperative. Pain: Location: right upper lf1 quadrant and left upper quadrant Pain currently is 8 out of 10 on a pain scale. Quality of pain is described as pressure, sharp, Pain began 3 hours ago. HIV screening NA for this visit Offered previously. Neurological: Level of Consciousness is awake, alert, Oriented to person, place, time. EENT: No deficits noted. Respiratory: Respiratory effort is even, unlabored. GI: Abdomen is obese, Pt is actively vomiting bile. Derm: Skin is clammy, diaphoretic. Injury Description: No known injury. Historical: - Allergies: Cipro PO (Hives); SEASONAL ALLERGIES; Indocinhypertension; Valiumhyperactivity; VioxxCHF; Tomato (Solanum Lycopersicum); - Home Meds: 1. atorvastatin 10 mg oral tab 1 tab once daily (Last dose: 09/09/2016 19:00) 2. Calcium Citrate 630 mg Oral twice a day (Last dose: 09/10/2016 07:00) 3. enalapril maleate 10 mg Oral tab 1 tab once daily (Last dose: 09/10/2016 07:00) 4. gabapentin 300 mg Oral cap 3 times per day (Last dose: 09/10/2016 07:00) 5. hydrochlorothiazide 25 mg Oral tab 1 tab once daily (Last dose: 09/10/2016 07:00) 6. Iron CR 65 mg Oral daily (Last dose: 09/10/2016 07:00) 7. meloxicam 7.5 mg oral tab 1 tab once daily (Last dose: 09/10/2016 07:00) 8. metformin 1,000 mg Oral tab 1 tab 2 times per day (Last dose: 09/10/2016 07:00) 9. pantoprazole 40 mg oral TbEC 1 tab once daily (Last dose: 09/10/2016 07:00) 10. potassium citrate 10 mEq (1,080 mg) oral TbER 3 times per day (Last dose: 09/10/2016 07:00) 11. Vitamin D3 oral 800 unit daily (Last dose: 09/10/2016 07:00) - PMHx: Twisted bowel; Anemia; Kidney stones; Hypercholesterolemia; low magnesium; Arthritis; CHF; Colitis; Diabetes - NIDDM: controlled; Diverticulitis; Hypertension; kidney surgery bilateral; small bowel obstruction; - PSHx: ; Kidney stone removal; tonsilectomy; - Social history: Smoking status: Patient states was never smoker of tobacco. No barriers to communication noted, The patient speaks fluent Taiwanese, Speaks appropriately for age. - Family history: Not pertinent. - : The pt / caregiver states he / she is not on anticoagulants. Home medication list is obtained from the patient. - Exposure Risk Screening:: None identified. Screenin:30 Screening information is obtained from the patient. Fall risk: No risks identified. lf1 Assistance ADL's: requires no assistance with activities of daily living. Abuse/DV Screen: The patient / caregiver reports he/she is: not in a situation that causes fear, pain or injury. Nutritional screening: Vegan. Advance Directives: Currently, there is no health care proxy. There is no active DNR order. There is no living will. home support is adequate. Assessment: 18:34 General: Appears in no apparent distress, comfortable, Behavior is appropriate for age, ms18 cooperative. Pain: Location: epigastric area, right upper quadrant and left upper quadrant Pain currently is 8 out of 10 on a pain scale. Neurological: Level of Consciousness is awake, alert, Oriented to person, place, time. Respiratory: Airway is patent Respiratory effort is even, unlabored. GI: Abdomen is non- distended obese, Bowel sounds present X 4 quads. Abd is soft X 4 quads Reports upper abdominal pain, nausea, vomiting. Derm: Skin is pink, warm & dry. 19:46 General: Appears in no apparent distress, pt medicated for pain. Behavior is ms2 cooperative. Pain: Pain currently is 4 out of 10 on a pain scale. Neurological: Level of Consciousness is awake, alert, obeys commands. Respiratory: No deficits noted. Airway is patent Respiratory effort is even, unlabored, Respiratory pattern is regular, symmetrical. GI: Abdomen is non- distended obese. Derm: Skin is pink, warm & dry. 20:00 General: ct done ---pt tolerated well---no reaction. Pain: Pain currently is 4 out of ms2 10 on a pain scale. Neurological: No deficits noted. Respiratory: Respiratory effort is even, unlabored. Derm: Skin is pink, warm & dry. 20:08 General: ua sent. ms2 21:04 Adult Sepsis Screening: The patient does not have new or worsening altered mentation. ms2 Patient's respiratory rate is less than 22. Patient has a qSOFA score of 0- Negative Sepsis Screen. Adult Sepsis Screening: Systolic blood pressure is greater than 100. General: Appears in no apparent distress. Neurological: No deficits noted. Respiratory: Respiratory effort is even, unlabored. Derm: Skin is pink, warm & dry. Musculoskeletal: Range of motion intact in all extremities. 21:58 Adult Sepsis Screening: The patient does not have new or worsening altered mentation. ms2 Patient's respiratory rate is less than 22. Systolic blood pressure is greater than 100. Patient has a qSOFA score of 0- Negative Sepsis Screen. General: Appears in no apparent distress, comfortable, Behavior is cooperative. Pain: Pain currently is 3 out of 10 on a pain scale. Neurological: Level of Consciousness is awake, alert, obeys commands. Respiratory: No deficits noted. Airway is patent Respiratory effort is even, unlabored, Respiratory pattern is regular, symmetrical. Derm: Skin is pink, warm & dry. Musculoskeletal: Range of motion intact in all extremities. Vital Signs: 16:08 BP 181 / 88; Pulse 71; Resp 20 S; Temp 99.0(O); Pulse Ox 99% on R/A; Weight 72.57 kg dd6 (R); Height 4 ft. 10 in. (147.32 cm) (R); 19:46 BP 148 / 78; Pulse 88; Resp 20 S; Pulse Ox 97% on R/A; Pain 4/10; ms2 21:59 BP 136 / 78; Pulse 101; Resp 20 S; Temp 99.3(T); Pulse Ox 94% on R/A; Pain 3/10; ms2 16:08 Body Mass Index 33.44 (72.57 kg, 147.32 cm) dd6 Vitals: 16:08 Log In Time: September 10, 2016 at 16:06. dd6 ED Course: 16:07 Patient visited by Tj Cruz PCA. dd6 16:07 Halley Garcia is Private Physician. dd6 16:07 Patient moved to Waiting dd6 16:08 Patient moved to Pre RCE dd6 16:24 Triage Initiated lf1 16:42 Patient moved to Triage 2 kr3 17:34 [facility] Payment Agreement was scanned into [employer] and attached to record. gb 17:50 B[facility]in Limon [facility]-C [facility]. cc10 17:50 Ricardo Poole MD is Attending Physician. cc10 17:50 Patient visited by Bhavin Limon PA-C. cc10 17:50 Patient visited by Bhavin Limon PA-C. cc10 18:01 Patient moved to I6 / kr3 18:33 Patient visited by Cira Calvillo RN. ms18 18:34 The patient / caregiver is instructed regarding the plan of care and ED course. ms18 Accompanied by Family Member, Patient has correct armband on for positive identification. Placed in gown. Bed in low position. Call light in reach. Property :Personal belongings accompany Pt. 18:34 Inserted saline lock: 18 gauge in right antecubital area and blood collected. The ms18 patient tolerated the procedure well. 19:25 Patient visited by Cira Calvillo RN. ms18 19:47 The patient / caregiver is instructed regarding the plan of care and ED course. ms2 19:47 IV is patent, is intact, is free of redness or swelling. solution is infusing as ms2 ordered. No procedures done that require assistance. 20:00 Patient visited by Jude Spain,ADRIANNE. ms2 20:01 The patient / caregiver is instructed regarding the plan of care and ED course. ms2 20:01 IV is patent, is intact, is free of redness or swelling. solution is infusing as ms2 ordered. 20:07 Urinalysis Sent. ms2 20:08 Urine Culture Sent. ms2 21:03 Patient visited by Cira Calvillo RN. ms18 21:04 Patient visited by Jude Spain,ADRIANNE. ms2 21:17 EKG-ADULT Returned. EDMS 21:22 CT ABD & PELVIS: IV Contrast Only Returned. EDMS 21:37 Jacoby June MD is Referral Physician. cc10 21:58 The patient / caregiver is instructed regarding the plan of care and ED course. ms2 21:58 IV is patent, is intact, is free of redness or swelling. solution is infusing as ms2 ordered. 22:01 The patient / caregiver is instructed regarding the plan of care and ED course. ms2 22:01 Discontinued IV intact, bleeding controlled, pressure dressing applied, No ms2 redness/swelling at site. Administered Medications: 18:33 Drug: Ondansetron 4 mg [ondansetron HCl 2 mg/mL intravenous solution (2 mL)] Route: ms18 IVP; Site: right antecubital; 18:33 Drug: ketorolac 30 mg [ketorolac 30 mg/mL (1 mL) injection solution (1 mL)] Route: IVP; ms18 Site: right antecubital; 18:33 Drug: NS 0.9% 1000 ml [sodium chloride 0.9 % intravenous solution] Route: IV; Rate: 250 ms18 mL/hr; Site: right antecubital; 19:42 Drug: morphine 4 mg [morphine 4 mg/mL intravenous cartridge (1 mL)] Route: IVP; Site: ms2 left antecubital; 19:46 Follow up: BP 148 / 78; Pulse 88 bpm; Resp 20 bpm Spontaneous; Pulse Ox 97% RA; Pain ms2 4/10 Adult; no change 19:45 Drug: Metoclopramide 10 mg [metoclopramide 5 mg/mL injection solution] Route: IV; Rate: ms2 40 mg/hr; Infused Over: 15 mins; Site: left antecubital; 21:51 Drug: oxyCODONE-acetaminophen 4 pack 1 packets [oxycodone-acetaminophen 5 mg-325 mg ms2 tablet (1 tabs)] {Co-Signature: ms18 (Cira Calvillo RN).} Route: PO; Intake: 21:33 IV: 50.00ml (NS); Total: 50.00ml. ms2 22:01 PO: 0.00ml; IV: 600.00ml (NS); Total: 650.00ml. ms2 21:33 PB ms2 22:01 voided x1 in ed ms2 Order Results: Lab Order: Basic Metabolic Profile; SPEC'M 09/10/16 18:26 Test: GLUCOSE, FASTING; Value: 184; Range: 80-110; Abnormal: Above high normal; Units: MG/DL; Status: F Test: BLOOD UREA NITROGEN; Value: 13; Range: 7-18; Units: MG/DL; Status: F Test: CREATININE FOR GFR; Value: 0.87; Range: 0.55-1.02; Units: MG/DL; Status: F Test: GLOMERULAR FILTRATION RATE; Value: > 60.0; Range: >45; Status: F Test: SODIUM LEVEL; Value: 143; Range: 136-145; Units: MEQ/L; Status: F Test: POTASSIUM SERUM; Value: 3.7; Range: 3.5-5.1; Units: MEQ/L; Status: F Test: CHLORIDE LEVEL; Value: 103; Range: 98-107; Units: MEQ/L; Status: F Test: CARBON DIOXIDE LEVEL; Value: 22; Range: 21-32; Units: MEQ/L; Status: F Test: ANION GAP; Value: 18; Range: 8-16; Abnormal: Above high normal; Units: MEQ/L; Status: F Test: CALCIUM LEVEL; Value: 9.4; Range: 8.8-10.2; Units: MG/DL; Status: F Test Note: ; Units are mL/min/1.73 m2 Chronic Kidney Disease Staging per NKF: Stage I & II GFR >=60 Normal to Mildly Decreased Stage III GFR 30-59 Moderately Decreased Stage IV GFR 15-29 Severely Decreased Stage V GFR <15 Very Little GFR Left ESRD GFR <15 on OBSERVER ELECTRICAL PROSPECTING Lab Order: CBC with Diff; SPEC'M 09/10/16 18:26 Test: WHITE BLOOD COUNT; Value: 13.2; Range: 4.0-10.0; Abnormal: Above high normal; Units: K/mm3; Status: F Test: RED BLOOD COUNT; Value: 3.99; Range: 4.00-5.40; Abnormal: Below low normal; Units: M/mm3; Status: F Test: HEMOGLOBIN; Value: 11.7; Range: 12.0-16.0; Abnormal: Below low normal; Units: g/dl; Status: F Test: HEMATOCRIT; Value: 35.6; Range: 36.0-47.0; Abnormal: Below low normal; Units: %; Status: F Test: MEAN CORPUSCULAR VOLUME; Value: 89.2; Range: 80.0-96.0; Units: fl; Status: F Test: MEAN CORPUSCULAR HEMOGLOBIN; Value: 29.3; Range: 27.0-33.0; Units: pg; Status: F Test: MEAN CORPUSCULAR HGB CONC; Value: 32.9; Range: 32.0-36.5; Units: g/dl; Status: F Test: RED CELL DISTRIBUTION WIDTH; Value: 15.7; Range: 11.5-14.5; Abnormal: Above high normal; Units: %; Status: F Test: PLATELET COUNT, AUTOMATED; Value: 355; Range: 150-450; Units: k/mm3; Status: F Test: NEUTROPHILS %; Value: 84.8; Range: 36.0-66.0; Abnormal: Above high normal; Units: %; Status: F Test: LYMPH %; Value: 9.0; Range: 24.0-44.0; Abnormal: Below low normal; Units: %; Status: F Test: MONO %; Value: 3.2; Range: 0.0-5.0; Units: %; Status: F Test: EOS %; Value: 0.9; Range: 0.0-3.0; Units: %; Status: F Test: BASO %; Value: 0.7; Range: 0.0-1.0; Units: %; Status: F Test: LARGE UNSTAINED CELL %; Value: 1.4; Range: 0.0-4.0; Units: %; Status: F Test: NEUTROPHILS #; Value: 11.2; Range: 1.8-7.7; Abnormal: Above high normal; Units: K/mm3; Status: F Test: LYMPH #; Value: 1.4; Range: 1.5-4.5; Abnormal: Below low normal; Units: K/mm3; Status: F Test: MONO #; Value: 0.4; Range: 0.0-0.8; Units: K/mm3; Status: F Test: EOS #; Value: 0.1; Range: 0.0-0.50; Units: K/mm3; Status: F Test: BASO #; Value: 0.1; Range: 0.0-0.2; Units: K/mm3; Status: F Test: LARGE UNSTAINED CELL #; Value: 0.2; Range: 0.0-0.4; Units: K/mm3; Status: F Lab Order: Lipase; SPEC'M 09/10/16 18:26 Test: LIPASE; Value: 287; Range: 73-393; Units: U/L; Status: F Lab Order: Liver Profile; SPEC'M 09/10/16 18:26 Test: AST/SGOT; Value: 14; Range: 15-37; Abnormal: Below low normal; Units: U/L; Status: F Test: ALT/SGPT; Value: 24; Range: 12-78; Units: U/L; Status: F Test: ALKALINE PHOSPHATASE; Value: 83; Range: 45-117; Units: U/L; Status: F Test: BILIRUBIN,TOTAL; Value: 0.7; Range: 0.2-1.0; Units: MG/DL; Status: F Test: BILIRUBIN,DIRECT; Value: 0.2; Range: 0.0-0.2; Units: MG/DL; Status: F Test: TOTAL PROTEIN; Value: 7.2; Range: 6.4-8.2; Units: GM/DL; Status: F Test: ALBUMIN; Value: 4.1; Range: 3.2-5.2; Units: GM/DL; Status: F Test: ALBUMIN/GLOBULIN RATIO; Value: 1.32; Range: 1.00-1.93; Status: F Lab Order: Partial Thromboplastin Time; SPEC'M 09/10/16 18:26 Test: PARTIAL THROMBOPLASTIN TIME; Value: 20.0; Range: 26.6-37.1; Abnormal: Below low normal; Units: SECONDS; Status: F Lab Order: Prothrombin Time Profile\E\INR; [facility] 09/10/16 18:26 Test: PROTHROMBIN TIME; Value: 11.7; Range: 12.3-14.5; Abnormal: Below low normal; Units: SECONDS; Status: F Test: INR; Value: 0.85; Status: F Test Note: ; THERAPUTIC HUMAN INR VALUES INDICATIONS NORMAL RANGES PROPHYLAXIS/TREATMENT OF: VENOUS THROMBOSIS 2.0-3.0 PULMONARY EMBOLISM 2.0-3.0 PREVENTION OF SYSTEMIC EMBOLISM FROM: TISSUE HEART VALVES 2.0-3.0 ACUTE MYOCARDIAL INFARCTION 2.0-3.0 VALVULAR HEART DISEASE 2.0-3.0 ATRIAL FIBRILLATION 2.0-3.0 MECHANICAL VALVES(HIGH RISK) 2.5-3.5 RECURRENT MYOCARDIAL INFARCTION 2.5-3.5 Lab Order: Urinalysis; [facility] 09/10/16 20:03 Test: APPEARANCE, URINE; Value: CLEAR; Range: CLEAR; Status: F Test: COLOR, URINE; Value: YELLOW; Range: YELLOW; Status: F Test: PH,URINE; Value: 5.0; Range: 5.0-9.0; Units: UNITS; Status: F Test: SPECIFIC GRAVITY URINE AUTO; Value: 1.028; Range: 1.002-1.035; Status: F Test: PROTEIN, URINE AUTO; Value: 2+; Range: NEGATIVE; Abnormal: Above high normal; Units: mg/dL; Status: F Test: GLUCOSE, URINE (UA) AUTO; Value: NEGATIVE; Range: NEGATIVE; Units: mg/dL; Status: F Test: KETONE, URINE AUTO; Value: TRACE; Range: NEGATIVE; Abnormal: Above high normal; Units: mg/dL; Status: F Test: UROBILINOGEN, URINE AUTO; Value: 0.2; Range: 0.0-2.0; Units: mg/dL; Status: F Test: BILIRUBIN, URINE AUTO; Value: NEGATIVE; Range: NEGATIVE; Status: F Test: NITRITE, URINE AUTO; Value: NEGATIVE; Range: NEGATIVE; Status: F Test: LEUKOCYTE ESTERASE, URINE AUTO; Value: NEGATIVE; Range: NEGATIVE; Status: F Test: BLOOD, URINE BLOOD; Value: NEGATIVE; Range: NEGATIVE; Status: F Test: WBC, URINE AUTO; Value: 1; Range: 0-3; Units: /HPF; Status: F Test: RBC, URINE AUTO; Value: 2; Range: 0-3; Units: /HPF; Status: F Test: BACTERIA, URINE AUTO; Value: NEGATIVE; Range: NEGATIVE; Status: F Test: SQUAMOUS EPITHELIAL CELL UR AU; Value: 0; Range: 0-6; Units: /HPF; Status: F Test: MUCUS, URINE; Value: SMALL; Range: NEGATIVE; Status: F Test: HYALINE CAST, URINE AUTO; Value: 0; Range: 0-1; Units: /LPF; Status: F Lab Order: Cardiac Marker Panel; SPEC'M 09/10/16 18:26 Test: CPK CREATINE PHOSPHOKINASE; Value: 36; Range: 26-192; Units: U/L; Status: F Test: CK-MB VALUE MASS; Value: 1.7; Range: 0.0-3.6; Units: NG/ML; Status: F Test: MB/CK RELATIVE INDEX; Value: 4.72; Range: < OR =4; Abnormal: Above high normal; Status: F Test: TROPONIN I; Value: < 0.02; Range: < 0.10; Units: NG/ML; Status: F Test Note: ; DIAGNOSIS CRITERIA MMB ng/ml Relative Index (RI) NON-AMI < or = 5 N/A ANGLIN ZONE > 5 < or = 4 AMI > 5 > 4 Radiology Order: EKG-ADULT Test: EKG-ADULT REASON FOR EXAMINATION: Abdomen Pain; Stationary ECG Study; [facility] - ED; ; Test Date: 2016-09-10; Pat Name: WES CHENG Department:; Room: -; Gender: F [employer]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; : 1955 Requested By: Bhavin Limon PA-C; Order Number: [id number] Reading MD: Elaine English; Measurements; Intervals [place]; Rate: 63 P: -5; FL: 135 QRS: 5; QRSD: 82 T: 8; QT: 407; QTc: 418; Interpretive Statements; SINUS RHYTHM; MINIMAL ST DEPRESSION; DECREASED RATE 08/17/16; Electronically Signed On 09-10-2016 20:30:38 EST by Elaine English; Radiology Order: CT ABD & PELVIS: IV Contrast Only Test: CT ABD & PELVIS: IV Contrast Only REASON FOR EXAMINATION: Abdomen Pain; ; CLINICAL HISTORY: Abdominal pain; TECHNIQUE : A CT of the abdomen and pelvis was performed following the administration of oral and int; ravenous contrast from the level of the heart to the proximal femoral diaphyses. Multiplanar reformat; s were also obtained in coronal and sagittal projections.; COMPARISON: CT abdomen pelvis 07/18/2016.; FINDINGS:; LOWER CHEST: The lung bases are clear. Heart is normal in size. No pleural or pericardial effusion is; seen.; LIVER: The liver is normal in size and contour. No hepatic lesion is seen. The portal and hepatic vei; ns are patent.; BILIARY SYSTEM: No intrahepatic biliary ductal dilatation is seen. The common duct is normal in calib; er. The gallbladder is unremarkable with no focal or diffuse wall thickening seen. No pericholecystic; fluid is seen. No calcified biliary calculi are identified.; PANCREAS: The pancreas is normal in size, contour and density. No solid or cystic pancreatic mass is; seen. No pancreatic duct dilatation is seen.; SPLEEN: The spleen is normal in size and without focal lesion.; ADRENALS: The adrenal glands are unremarkable.; KIDNEYS/URETERS: The kidneys are normal in size with a stable subcentimeter or focal cysts. Stable bi; lateral stones measuring up to 6 mm right lower pole and 4 mm left interpole; without hydronephrosis.; ; URINARY BLADDER: The urinary bladder is unremarkable without calcified stone, wall thickening or dive; rticula seen.; UTERUS/ADNEXA: Within normal size limits with no suspicious lesion.; AORTA AND ILIAC ARTERIES: No aneurysmal dilatation of the aorta or iliac arteries is seen.; INFERIOR VENA CAVA AND PELVIC VEINS: No deep venous thrombosis is seen.; LYMPH NODES: No enlarged adenopathy.; GASTROINTESTINAL: Stomach, duodenum, and proximal small bowel normal in caliber. Slight increased num; sal of moderately dilated, unopacified fluid-filled small bowel loops in the right hemiabdomen and lo; wer quadrant, with transition toward the terminal ileum, and relative collapse of the colon. Colonic; diverticulosis noted without findings of acute diverticulosis.; PERITONEUM/RETROPERITONEUM: No ascites or suspicious fluid collection, extraluminal air, or suspiciou; s mass.; ABDOMINAL/PELVIC WALL: No hernia is identified.; OSSEOUS STRUCTURES/SOFT TISSUES: No suspicious osseous lesion, acute fracture, or soft tissue abnorma; lity. Multilevel moderate degenerative spurring of the lower thoracic spine.; IMPRESSION :; Partial small bowel obstruction again noted as described, slightly increased from prior study. Stable; remaining findings as described.; ; Outcome: 21:38 Discharge ordered by Provider. cc10 22:03 Discharge Assessment: patient administered narcotics - yes. Pt provided with safe ms2 discharge. The following High Risk Discharge criteria are identified: None. Discharged to home ambulatory, with family. Condition: stable. Discharge instructions given to patient, Instructed on discharge instructions, follow up and referral plans. medication usage, no driving heavy equipment, no drinking with medication, Demonstrated understanding of instructions, medications, Pt was receptive of discharge instructions/ teaching. Prescriptions given X one faxed. CT Study completed. 22:04 Patient left the ED. ms2 Signatures: Dispatcher [employer] EDMS Jude Spain RN RN ms2 Margie Lilly, Reg Reg Rabia Becerra RN RN kr3 Tana Stevenson RN RN lf1 Tj Cruz, HORTICULTURAL SERVICES SUPERVISOR HORTICULTURAL SERVICES SUPERVISOR dd6 Bhavin Limon, PA-C PA-C cc10 Cira Calvillo RN RN ms18 Cira Calvillo RN ms18 Corrections: (The following items were deleted from the chart) 22:01 21:59 PO 0, Note:voided x1 in ed. ms2 ms2 MTDD
--- NOTE | 2016-09-11 05:46 | REP ---
ABDOMINAL SERIES: Supine erect views of the abdomen demonstrate no free air and no evidence for bowel obstruction. Multiple phleboliths are seen in the pelvis. There are small intrarenal calculi again seen bilaterally, unchanged since the prior exam. There are degenerative changes of the spine. An accompanying view of the chest demonstrates no acute infiltrate. Heart is normal in size. IMPRESSION: No acute abnormalities are detected as discussed in detail above, with no change since prior study of 08/17/2016. Signed by Nikolas Wilson MD 09/12/2016 12:44 P
--- NOTE | 2016-09-12 23:06 | EDDOCDS ---
Physician Documentation [facility] Name: Briseyda Cheng Age: 60 yrs Sex: Female : 1955 Arrival Date: 09/10/2016 Time: 16:06 Bed I6 Private MD: Halley Garcia A Disposition: 09/10/16 21:38 Discharged to Home/Self Care. Impression: Generalized abdominal pain - partial chronic SBO. - Condition is Stable. - Discharge Instructions: Abdominal Pain, Adult, Clear Liquid Diet. - Prescriptions for Reglan 10 mg Oral Tablet - take 1 tablet by ORAL route every 6 hours take 30 minutes before meals and at bedtime; 20 tablet. - Medication Reconciliation, Local Pharmacy Hours form. - Follow up: Jacoby June MD; When: Tomorrow; Reason: Wound/Symptom Recheck, Recheck today's complaints, Worsening of conditions, Continuance of care. - Problem is an acute exacerbation. - Symptoms have improved. Historical: - Allergies: Cipro PO (Hives); SEASONAL ALLERGIES; Indocinhypertension; Valiumhyperactivity; VioxxCHF; Tomato (Solanum Lycopersicum); - Home Meds: 1. atorvastatin 10 mg oral tab 1 tab once daily (Last dose: 09/09/2016 19:00) 2. Calcium Citrate 630 mg Oral twice a day (Last dose: 09/10/2016 07:00) 3. enalapril maleate 10 mg Oral tab 1 tab once daily (Last dose: 09/10/2016 07:00) 4. gabapentin 300 mg Oral cap 3 times per day (Last dose: 09/10/2016 07:00) 5. hydrochlorothiazide 25 mg Oral tab 1 tab once daily (Last dose: 09/10/2016 07:00) 6. Iron CR 65 mg Oral daily (Last dose: 09/10/2016 07:00) 7. meloxicam 7.5 mg oral tab 1 tab once daily (Last dose: 09/10/2016 07:00) 8. metformin 1,000 mg Oral tab 1 tab 2 times per day (Last dose: 09/10/2016 07:00) 9. pantoprazole 40 mg oral TbEC 1 tab once daily (Last dose: 09/10/2016 07:00) 10. potassium citrate 10 mEq (1,080 mg) oral TbER 3 times per day (Last dose: 09/10/2016 07:00) 11. Vitamin D3 oral 800 unit daily (Last dose: 09/10/2016 07:00) - PMHx: Twisted bowel; Anemia; Kidney stones; Hypercholesterolemia; low magnesium; Arthritis; CHF; Colitis; Diabetes - NIDDM: controlled; Diverticulitis; Hypertension; kidney surgery bilateral; small bowel obstruction; - PSHx: ; Kidney stone removal; tonsilectomy; - Social history: Smoking status: Patient states was never smoker of tobacco. No barriers to communication noted, The patient speaks fluent Salvadorean, Speaks appropriately for age. - Family history: Not pertinent. - : The pt / caregiver states he / she is not on anticoagulants. Home medication list is obtained from the patient. - Exposure Risk Screening:: None identified. Vital Signs: 09/10 16:08 BP 181 / 88; Pulse 71; Resp 20 S; Temp 99.0(O); Pulse Ox 99% on R/A; Weight 72.57 kg / dd6 159.99 lbs (R); Height 4 ft. 10 in. (147.32 cm) (R); 19:46 BP 148 / 78; Pulse 88; Resp 20 S; Pulse Ox 97% on R/A; Pain 4/10; ms2 21:59 BP 136 / 78; Pulse 101; Resp 20 S; Temp 99.3(T); Pulse Ox 94% on R/A; Pain 3/10; ms2 16:08 Body Mass Index 33.44 (72.57 kg, 147.32 cm) dd6 MDM: 17:34 [facility] Payment Agreement was scanned into [employer] and attached to record. gb 17:58 Ondansetron 4 mg IVP once ordered. cc10 17:58 ketorolac 30 mg IVP once ordered. cc10 17:58 IV Saline Lock ordered. cc10 17:58 Undress patient appropriately for examination ordered. cc10 17:58 NS 0.9% 1000 ml IV at 250 mL/hr continuous ordered. cc10 17:59 Basic Metabolic Profile Ordered. EDMS 17:59 CBC with Diff Ordered. EDMS 17:59 Lipase Ordered. EDMS 17:59 Liver Profile Ordered. EDMS 17:59 Partial Thromboplastin Time Ordered. EDMS 17:59 Prothrombin Time Profile\E\INR Ordered. EDMS 17:59 Urinalysis Ordered. EDMS 17:59 Cardiac Marker Panel Ordered. EDMS 17:59 Troponin Ordered. EDMS 17:59 Urine Culture Ordered. EDMS 17:59 Abdomen, Flat\E\Upright,PA Chest Ordered. EDMS 18:00 NOTHING BY MOUTH+DIET ordered. EDMS 18:00 ECG WITH READING ER PHYS+CARDIAG ordered. EDMS 18:11 Financial registration complete. gb 19:24 Basic Metabolic Profile Reviewed. cc10 19:24 CBC with Diff Reviewed. cc10 19:24 Liver Profile Reviewed. cc10 19:24 Partial Thromboplastin Time Reviewed. cc10 19:24 Prothrombin Time Profile\E\INR Reviewed. cc10 19:24 Cardiac Marker Panel Reviewed. cc10 19:24 Lipase Reviewed. cc10 19:25 Metoclopramide 10 mg IV at 40 mg/hr once over 15 mins ordered. cc10 19:26 morphine 4 mg IVP once ordered. cc10 19:27 CT ABD & PELVIS: IV Contrast Only Ordered. EDMS 21:39 oxyCODONE-acetaminophen 4 pack 5 mg-325 mg 1 packets PO once; Dispense with pt, take as cc10 per instruction on package ordered. 09/11 02:33 T-Sheet-- Draft Copy was scanned into [employer] and attached to record. hs2 10:36 ECG/EKG was scanned into [employer] and attached to record. gb 10:37 Radiology Report was scanned into [employer] and attached to record. gb Administered Medications: 09/10 18:33 Drug: Ondansetron 4 mg [ondansetron HCl 2 mg/mL intravenous solution (2 mL)] Route: ms18 IVP; Site: right antecubital; 18:33 Drug: ketorolac 30 mg [ketorolac 30 mg/mL (1 mL) injection solution (1 mL)] Route: IVP; ms18 Site: right antecubital; 18:33 Drug: NS 0.9% 1000 ml [sodium chloride 0.9 % intravenous solution] Route: IV; Rate: 250 ms18 mL/hr; Site: right antecubital; 19:42 Drug: morphine 4 mg [morphine 4 mg/mL intravenous cartridge (1 mL)] Route: IVP; Site: ms2 left antecubital; 19:46 Follow up: BP 148 / 78; Pulse 88 bpm; Resp 20 bpm Spontaneous; Pulse Ox 97% RA; Pain ms2 4/ Adult; no change 19:45 Drug: Metoclopramide 10 mg [metoclopramide 5 mg/mL injection solution] Route: IV; Rate: ms2 40 mg/hr; Infused Over: 15 mins; Site: left antecubital; 21:51 Drug: oxyCODONE-acetaminophen 4 pack 1 packets [oxycodone-acetaminophen 5 mg-325 mg ms2 tablet (1 tabs)] {Co-Signature: [id number] (Cira Calvillo RN).} Route: PO; Signatures: Dispatcher [employer] EDMS Jude SpainRN RN ms2 Margie Lilly, Reg Reg gb Tana Stevenson RN RN lf1 Bhavin Limon PA-C PABisi cc10 Cira Calvillo RN RN ms18 Quynh Villalobos, Reg Reg hs2 Cira Calvillo RN ms18 The chart was reviewed and I authenticate all verbal orders and agree with the evaluation and treatment provided.Attachments: 17:34 [facility] Payment Agreement gb 09/11 02:33 T-Sheet-- Draft Copy hs2 10:36 ECG/EKG gb Chart Complete MTDD
--- NOTE | 2016-09-12 23:06 | EDDOCDS ---
Nurse's Notes [facility] Name: Briseyda Cheng Age: 60 yrs Sex: Female : 1955 Arrival Date: 09/10/2016 Time: 16:06 Bed I6 / 28 Private MD: Halley Garcia A Diagnosis: Generalized abdominal pain-partial chronic SBO Presentation: 09/10 16:21 Presenting complaint: Patient states: Abdominal pain and vomiting that began at 1500 lf1 today. Pt. reports history of SBO and feels that these symptoms are similar. Pt. reports pain is currently 8/10, actively vomiting in triage area. Pain in R/L upper abdomen. Adult Sepsis Screening: The patient does not have new or worsening altered mentation. Patient's respiratory rate is less than 22. Systolic blood pressure is greater than 100. Patient has a qSOFA score of 0- Negative Sepsis Screen. Suicide/Homicide risk assessment- the patient denies having any suicidal and/or homicidal ideations and does not present with any other emotional, behavioral or mental health complaints. Status: Patient is not a postal service mail processor or dependent. Transition of care: patient was not received from another setting of care. 16:21 Acuity: LG Level 3 lf1 16:21 Method Of Arrival: Wheelchair lf1 Triage Assessment: 16:28 General: Appears distressed, ill, Behavior is cooperative. Pain: Location: right upper lf1 quadrant and left upper quadrant Pain currently is 8 out of 10 on a pain scale. Quality of pain is described as pressure, sharp, Pain began 3 hours ago. HIV screening NA for this visit Offered previously. Neurological: Level of Consciousness is awake, alert, Oriented to person, place, time. EENT: No deficits noted. Respiratory: Respiratory effort is even, unlabored. GI: Abdomen is obese, Pt is actively vomiting bile. Derm: Skin is clammy, diaphoretic. Injury Description: No known injury. Historical: - Allergies: Cipro PO (Hives); SEASONAL ALLERGIES; Indocinhypertension; Valiumhyperactivity; VioxxCHF; Tomato (Solanum Lycopersicum); - Home Meds: 1. atorvastatin 10 mg oral tab 1 tab once daily (Last dose: 09/09/2016 19:00) 2. Calcium Citrate 630 mg Oral twice a day (Last dose: 09/10/2016 07:00) 3. enalapril maleate 10 mg Oral tab 1 tab once daily (Last dose: 09/10/2016 07:00) 4. gabapentin 300 mg Oral cap 3 times per day (Last dose: 09/10/2016 07:00) 5. hydrochlorothiazide 25 mg Oral tab 1 tab once daily (Last dose: 09/10/2016 07:00) 6. Iron CR 65 mg Oral daily (Last dose: 09/10/2016 07:00) 7. meloxicam 7.5 mg oral tab 1 tab once daily (Last dose: 09/10/2016 07:00) 8. metformin 1,000 mg Oral tab 1 tab 2 times per day (Last dose: 09/10/2016 07:00) 9. pantoprazole 40 mg oral TbEC 1 tab once daily (Last dose: 09/10/2016 07:00) 10. potassium citrate 10 mEq (1,080 mg) oral TbER 3 times per day (Last dose: 09/10/2016 07:00) 11. Vitamin D3 oral 800 unit daily (Last dose: 09/10/2016 07:00) - PMHx: Twisted bowel; Anemia; Kidney stones; Hypercholesterolemia; low magnesium; Arthritis; CHF; Colitis; Diabetes - NIDDM: controlled; Diverticulitis; Hypertension; kidney surgery bilateral; small bowel obstruction; - PSHx: ; Kidney stone removal; tonsilectomy; - Social history: Smoking status: Patient states was never smoker of tobacco. No barriers to communication noted, The patient speaks fluent Bolivian, Speaks appropriately for age. - Family history: Not pertinent. - : The pt / caregiver states he / she is not on anticoagulants. Home medication list is obtained from the patient. - Exposure Risk Screening:: None identified. Screenin:30 Screening information is obtained from the patient. Fall risk: No risks identified. lf1 Assistance ADL's: requires no assistance with activities of daily living. Abuse/DV Screen: The patient / caregiver reports he/she is: not in a situation that causes fear, pain or injury. Nutritional screening: Vegan. Advance Directives: Currently, there is no health care proxy. There is no active DNR order. There is no living will. home support is adequate. Assessment: 18:34 General: Appears in no apparent distress, comfortable, Behavior is appropriate for age, ms18 cooperative. Pain: Location: epigastric area, right upper quadrant and left upper quadrant Pain currently is 8 out of 10 on a pain scale. Neurological: Level of Consciousness is awake, alert, Oriented to person, place, time. Respiratory: Airway is patent Respiratory effort is even, unlabored. GI: Abdomen is non- distended obese, Bowel sounds present X 4 quads. Abd is soft X 4 quads Reports upper abdominal pain, nausea, vomiting. Derm: Skin is pink, warm & dry. 19:46 General: Appears in no apparent distress, pt medicated for pain. Behavior is ms2 cooperative. Pain: Pain currently is 4 out of 10 on a pain scale. Neurological: Level of Consciousness is awake, alert, obeys commands. Respiratory: No deficits noted. Airway is patent Respiratory effort is even, unlabored, Respiratory pattern is regular, symmetrical. GI: Abdomen is non- distended obese. Derm: Skin is pink, warm & dry. 20:00 General: ct done ---pt tolerated well---no reaction. Pain: Pain currently is 4 out of ms2 10 on a pain scale. Neurological: No deficits noted. Respiratory: Respiratory effort is even, unlabored. Derm: Skin is pink, warm & dry. 20:08 General: ua sent. ms2 21:04 Adult Sepsis Screening: The patient does not have new or worsening altered mentation. ms2 Patient's respiratory rate is less than 22. Patient has a qSOFA score of 0- Negative Sepsis Screen. Adult Sepsis Screening: Systolic blood pressure is greater than 100. General: Appears in no apparent distress. Neurological: No deficits noted. Respiratory: Respiratory effort is even, unlabored. Derm: Skin is pink, warm & dry. Musculoskeletal: Range of motion intact in all extremities. 21:58 Adult Sepsis Screening: The patient does not have new or worsening altered mentation. ms2 Patient's respiratory rate is less than 22. Systolic blood pressure is greater than 100. Patient has a qSOFA score of 0- Negative Sepsis Screen. General: Appears in no apparent distress, comfortable, Behavior is cooperative. Pain: Pain currently is 3 out of 10 on a pain scale. Neurological: Level of Consciousness is awake, alert, obeys commands. Respiratory: No deficits noted. Airway is patent Respiratory effort is even, unlabored, Respiratory pattern is regular, symmetrical. Derm: Skin is pink, warm & dry. Musculoskeletal: Range of motion intact in all extremities. Vital Signs: 16:08 BP 181 / 88; Pulse 71; Resp 20 S; Temp 99.0(O); Pulse Ox 99% on R/A; Weight 72.57 kg dd6 (R); Height 4 ft. 10 in. (147.32 cm) (R); 19:46 BP 148 / 78; Pulse 88; Resp 20 S; Pulse Ox 97% on R/A; Pain 4/10; ms2 21:59 BP 136 / 78; Pulse 101; Resp 20 S; Temp 99.3(T); Pulse Ox 94% on R/A; Pain 3/10; ms2 16:08 Body Mass Index 33.44 (72.57 kg, 147.32 cm) dd6 Vitals: 16:08 Log In Time: September 10, 2016 at 16:06. dd6 ED Course: 16:07 Patient visited by Tj Cruz PCA. dd6 16:07 Halley Garcia is Private Physician. dd6 16:07 Patient moved to Waiting dd6 16:08 Patient moved to Pre RCE dd6 16:24 Triage Initiated lf1 16:42 Patient moved to Triage 2 kr3 17:34 [facility] Payment Agreement was scanned into Pager and attached to record. gb 17:50 Bhavin Limon PA-C [facility] cc10 17:50 Ricardo Poole MD is Attending Physician. cc10 17:50 Patient visited by Bhavin Limon PA-C. cc10 17:50 Patient visited by Bhavin Limon PA-C. cc10 18:01 Patient moved to I6 / kr3 18:33 Patient visited by Cira Calvillo RN. ms18 18:34 The patient / caregiver is instructed regarding the plan of care and ED course. ms18 Accompanied by Family Member, Patient has correct armband on for positive identification. Placed in gown. Bed in low position. Call light in reach. Property :Personal belongings accompany Pt. 18:34 Inserted saline lock: 18 gauge in right antecubital area and blood collected. The ms18 patient tolerated the procedure well. 19:25 Patient visited by Cira Calvillo RN. ms18 19:47 The patient / caregiver is instructed regarding the plan of care and ED course. ms2 19:47 IV is patent, is intact, is free of redness or swelling. solution is infusing as ms2 ordered. No procedures done that require assistance. 20:00 Patient visited by Jude Spain,ADRIANNE. ms2 20:01 The patient / caregiver is instructed regarding the plan of care and ED course. ms2 20:01 IV is patent, is intact, is free of redness or swelling. solution is infusing as ms2 ordered. 20:07 Urinalysis Sent. ms2 20:08 Urine Culture Sent. ms2 21:03 Patient visited by Cira Calvillo,ADRIANNE. ms18 21:04 Patient visited by Jude Spain,ADRIANNE. ms2 21:17 EKG-ADULT Returned. EDMS 21:22 CT ABD & PELVIS: IV Contrast Only Returned. EDMS 21:37 Jacoby June MD is Referral Physician. cc10 21:58 The patient / caregiver is instructed regarding the plan of care and ED course. ms2 21:58 IV is patent, is intact, is free of redness or swelling. solution is infusing as ms2 ordered. 22:01 The patient / caregiver is instructed regarding the plan of care and ED course. ms2 22:01 Discontinued IV intact, bleeding controlled, pressure dressing applied, No ms2 redness/swelling at site. 09/11 02:33 T-Sheet-- Draft Copy was scanned into Pager and attached to record. hs2 05:49 Abdomen, Flat\E\Upright,PA Chest Returned. EDMS 10:36 ECG/EKG was scanned into Pager and attached to record. gb 10:37 Radiology Report was scanned into Pager and attached to record. gb Administered Medications: 09/10 18:33 Drug: Ondansetron 4 mg [ondansetron HCl 2 mg/mL intravenous solution (2 mL)] Route: ms18 IVP; Site: right antecubital; 18:33 Drug: ketorolac 30 mg [ketorolac 30 mg/mL (1 mL) injection solution (1 mL)] Route: IVP; ms18 Site: right antecubital; 18:33 Drug: NS 0.9% 1000 ml [sodium chloride 0.9 % intravenous solution] Route: IV; Rate: 250 ms18 mL/hr; Site: right antecubital; 19:42 Drug: morphine 4 mg [morphine 4 mg/mL intravenous cartridge (1 mL)] Route: IVP; Site: ms2 left antecubital; 19:46 Follow up: BP 148 / 78; Pulse 88 bpm; Resp 20 bpm Spontaneous; Pulse Ox 97% RA; Pain ms2 11/25 Adult; no change 19:45 Drug: Metoclopramide 10 mg [metoclopramide 5 mg/mL injection solution] Route: IV; Rate: ms2 40 mg/hr; Infused Over: 15 mins; Site: left antecubital; 21:51 Drug: oxyCODONE-acetaminophen 4 pack 1 packets [oxycodone-acetaminophen 5 mg-325 mg ms2 tablet (1 tabs)] {Co-Signature: ms18 (Cira Calvillo RN).} Route: PO; Intake: 21:33 IV: 50.00ml (NS); Total: 50.00ml. ms2 22:01 PO: 0.00ml; IV: 600.00ml (NS); Total: 650.00ml. ms2 21:33 PB ms2 22:01 voided x1 in ed ms2 Order Results: Lab Order: Basic Metabolic Profile; SPEC'M 09/10/16 18:26 Test: GLUCOSE, FASTING; Value: 184; Range: 80-110; Abnormal: Above high normal; Units: MG/DL; Status: F Test: BLOOD UREA NITROGEN; Value: 13; Range: 7-18; Units: MG/DL; Status: F Test: CREATININE FOR GFR; Value: 0.87; Range: 0.55-1.02; Units: MG/DL; Status: F Test: GLOMERULAR FILTRATION RATE; Value: > 60.0; Range: >45; Status: F Test: SODIUM LEVEL; Value: 143; Range: 136-145; Units: MEQ/L; Status: F Test: POTASSIUM SERUM; Value: 3.7; Range: 3.5-5.1; Units: MEQ/L; Status: F Test: CHLORIDE LEVEL; Value: 103; Range: 98-107; Units: MEQ/L; Status: F Test: CARBON DIOXIDE LEVEL; Value: 22; Range: 21-32; Units: MEQ/L; Status: F Test: ANION GAP; Value: 18; Range: 8-16; Abnormal: Above high normal; Units: MEQ/L; Status: F Test: CALCIUM LEVEL; Value: 9.4; Range: 8.8-10.2; Units: MG/DL; Status: F Test Note: ; Units are mL/min/1.73 m2 Chronic Kidney Disease Staging per NKF: Stage I & II GFR >=60 Normal to Mildly Decreased Stage III GFR 30-59 Moderately Decreased Stage IV GFR 15-29 Severely Decreased Stage V GFR <15 Very Little GFR Left ESRD GFR <15 on ASSET MANAGEMENT LEAD Lab Order: CBC with Diff; SPEC'M 09/10/16 18:26 Test: WHITE BLOOD COUNT; Value: 13.2; Range: 4.0-10.0; Abnormal: Above high normal; Units: K/mm3; Status: F Test: RED BLOOD COUNT; Value: 3.99; Range: 4.00-5.40; Abnormal: Below low normal; Units: M/mm3; Status: F Test: HEMOGLOBIN; Value: 11.7; Range: 12.0-16.0; Abnormal: Below low normal; Units: g/dl; Status: F Test: HEMATOCRIT; Value: 35.6; Range: 36.0-47.0; Abnormal: Below low normal; Units: %; Status: F Test: MEAN CORPUSCULAR VOLUME; Value: 89.2; Range: 80.0-96.0; Units: fl; Status: F Test: MEAN CORPUSCULAR HEMOGLOBIN; Value: 29.3; Range: 27.0-33.0; Units: pg; Status: F Test: MEAN CORPUSCULAR HGB CONC; Value: 32.9; Range: 32.0-36.5; Units: g/dl; Status: F Test: RED CELL DISTRIBUTION WIDTH; Value: 15.7; Range: 11.5-14.5; Abnormal: Above high normal; Units: %; Status: F Test: PLATELET COUNT, AUTOMATED; Value: 355; Range: 150-450; Units: k/mm3; Status: F Test: NEUTROPHILS %; Value: 84.8; Range: 36.0-66.0; Abnormal: Above high normal; Units: %; Status: F Test: LYMPH %; Value: 9.0; Range: 24.0-44.0; Abnormal: Below low normal; Units: %; Status: F Test: MONO %; Value: 3.2; Range: 0.0-5.0; Units: %; Status: F Test: EOS %; Value: 0.9; Range: 0.0-3.0; Units: %; Status: F Test: BASO %; Value: 0.7; Range: 0.0-1.0; Units: %; Status: F Test: LARGE UNSTAINED CELL %; Value: 1.4; Range: 0.0-4.0; Units: %; Status: F Test: NEUTROPHILS #; Value: 11.2; Range: 1.8-7.7; Abnormal: Above high normal; Units: K/mm3; Status: F Test: LYMPH #; Value: 1.4; Range: 1.5-4.5; Abnormal: Below low normal; Units: K/mm3; Status: F Test: MONO #; Value: 0.4; Range: 0.0-0.8; Units: K/mm3; Status: F Test: EOS #; Value: 0.1; Range: 0.0-0.50; Units: K/mm3; Status: F Test: BASO #; Value: 0.1; Range: 0.0-0.2; Units: K/mm3; Status: F Test: LARGE UNSTAINED CELL #; Value: 0.2; Range: 0.0-0.4; Units: K/mm3; Status: F Lab Order: Lipase; SPEC' 09/10/16 18:26 Test: LIPASE; Value: 287; Range: 73-393; Units: U/L; Status: F Lab Order: Liver Profile; SPEC' 09/10/16 18:26 Test: AST/SGOT; Value: 14; Range: 15-37; Abnormal: Below low normal; Units: U/L; Status: F Test: ALT/SGPT; Value: 24; Range: 12-78; Units: U/L; Status: F Test: ALKALINE PHOSPHATASE; Value: 83; Range: 45-117; Units: U/L; Status: F Test: BILIRUBIN,TOTAL; Value: 0.7; Range: 0.2-1.0; Units: MG/DL; Status: F Test: BILIRUBIN,DIRECT; Value: 0.2; Range: 0.0-0.2; Units: MG/DL; Status: F Test: TOTAL PROTEIN; Value: 7.2; Range: 6.4-8.2; Units: GM/DL; Status: F Test: ALBUMIN; Value: 4.1; Range: 3.2-5.2; Units: GM/DL; Status: F Test: ALBUMIN/GLOBULIN RATIO; Value: 1.32; Range: 1.00-1.93; Status: F Lab Order: Partial Thromboplastin Time; [facility] 09/10/16 18:26 Test: PARTIAL THROMBOPLASTIN TIME; Value: 20.0; Range: 26.6-37.1; Abnormal: Below low normal; Units: SECONDS; Status: F Lab Order: Prothrombin Time Profile\E\INR; [facility] 09/10/16 18:26 Test: PROTHROMBIN TIME; Value: 11.7; Range: 12.3-14.5; Abnormal: Below low normal; Units: SECONDS; Status: F Test: INR; Value: 0.85; Status: F Test Note: ; THERAPUTIC HUMAN INR VALUES INDICATIONS NORMAL RANGES PROPHYLAXIS/TREATMENT OF: VENOUS THROMBOSIS 2.0-3.0 PULMONARY EMBOLISM 2.0-3.0 PREVENTION OF SYSTEMIC EMBOLISM FROM: TISSUE HEART VALVES 2.0-3.0 ACUTE MYOCARDIAL INFARCTION 2.0-3.0 VALVULAR HEART DISEASE 2.0-3.0 ATRIAL FIBRILLATION 2.0-3.0 MECHANICAL VALVES(HIGH RISK) 2.5-3.5 RECURRENT MYOCARDIAL INFARCTION 2.5-3.5 Lab Order: Urinalysis; [facility] 09/10/16 20:03 Test: APPEARANCE, URINE; Value: CLEAR; Range: CLEAR; Status: F Test: COLOR, URINE; Value: YELLOW; Range: YELLOW; Status: F Test: PH,URINE; Value: 5.0; Range: 5.0-9.0; Units: UNITS; Status: F Test: SPECIFIC GRAVITY URINE AUTO; Value: 1.028; Range: 1.002-1.035; Status: F Test: PROTEIN, URINE AUTO; Value: 2+; Range: NEGATIVE; Abnormal: Above high normal; Units: mg/dL; Status: F Test: GLUCOSE, URINE (UA) AUTO; Value: NEGATIVE; Range: NEGATIVE; Units: mg/dL; Status: F Test: KETONE, URINE AUTO; Value: TRACE; Range: NEGATIVE; Abnormal: Above high normal; Units: mg/dL; Status: F Test: UROBILINOGEN, URINE AUTO; Value: 0.2; Range: 0.0-2.0; Units: mg/dL; Status: F Test: BILIRUBIN, URINE AUTO; Value: NEGATIVE; Range: NEGATIVE; Status: F Test: NITRITE, URINE AUTO; Value: NEGATIVE; Range: NEGATIVE; Status: F Test: LEUKOCYTE ESTERASE, URINE AUTO; Value: NEGATIVE; Range: NEGATIVE; Status: F Test: BLOOD, URINE BLOOD; Value: NEGATIVE; Range: NEGATIVE; Status: F Test: WBC, URINE AUTO; Value: 1; Range: 0-3; Units: /HPF; Status: F Test: RBC, URINE AUTO; Value: 2; Range: 0-3; Units: /HPF; Status: F Test: BACTERIA, URINE AUTO; Value: NEGATIVE; Range: NEGATIVE; Status: F Test: SQUAMOUS EPITHELIAL CELL UR AU; Value: 0; Range: 0-6; Units: /HPF; Status: F Test: MUCUS, URINE; Value: SMALL; Range: NEGATIVE; Status: F Test: HYALINE CAST, URINE AUTO; Value: 0; Range: 0-1; Units: /LPF; Status: F Lab Order: Urine Culture; SPEC'M 09/10/16 20:03 Test: URINE CULTURE; Value: <EXTERNAL COMMENT eCWMed> FULL REPORT IN LAB NOTES (eCW and Medent).; Status: F Test: URINE CULTURE; Value: URINE CULTURE RESULT SPECIMEN APPEARS CONTAMINATED; Status: F Lab Order: Cardiac Marker Panel; SPEC'M 09/10/16 18:26 Test: CPK CREATINE PHOSPHOKINASE; Value: 36; Range: 26-192; Units: U/L; Status: F Test: CK-MB VALUE MASS; Value: 1.7; Range: 0.0-3.6; Units: NG/ML; Status: F Test: MB/CK RELATIVE INDEX; Value: 4.72; Range: < OR =4; Abnormal: Above high normal; Status: F Test: TROPONIN I; Value: < 0.02; Range: < 0.10; Units: NG/ML; Status: F Test Note: ; DIAGNOSIS CRITERIA MMB ng/ml Relative Index (RI) NON-AMI < or = 5 N/A [place] > 5 < or = 4 AMI > 5 > 4 Radiology Order: Abdomen, Flat\E\Upright,PA Chest Test: Abdomen, Flat\E\Upright,PA Chest REASON FOR EXAMINATION: Abdomen Pain; ABDOMINAL SERIES:; ; Supine erect views of the abdomen demonstrate no free air and no evidence for; bowel obstruction. Multiple phleboliths are seen in the pelvis. There are small; intrarenal calculi again seen bilaterally, unchanged since the prior exam. There; are degenerative changes of the spine.; ; An accompanying view of the chest demonstrates no acute infiltrate. Heart is; normal in size.; ; IMPRESSION:; ; No acute abnormalities are detected as discussed in detail above, with no change; since prior study of 08/17/2016.; ; ; Signed by; Nikolas Wilson MD 09/12/2016 12:44 P; Radiology Order: EKG-ADULT Test: EKG-ADULT REASON FOR EXAMINATION: Abdomen Pain; Stationary ECG Study; 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 ann; : 1955 Requested By: Bhavin Limon PA-C; Order Number: [id number] Reading MD: Elaine English; Measurements; Intervals [place]; Rate: 63 P: -5; [place]: 135 QRS: 5; QRSD: 82 T: 8; QT: 407; QTc: 418; Interpretive Statements; SINUS RHYTHM; MINIMAL ST DEPRESSION; DECREASED RATE 08/17/16; Electronically Signed On 09-10-2016 20:30:38 EST by Elaine English; Radiology Order: CT ABD & PELVIS: IV Contrast Only Test: CT ABD & PELVIS: IV Contrast Only REASON FOR EXAMINATION: Abdomen Pain; ; CLINICAL HISTORY: Abdominal pain; TECHNIQUE : A CT of the abdomen and pelvis was performed following the administration of oral and int; ravenous contrast from the level of the heart to the proximal femoral diaphyses. Multiplanar reformat; s were also obtained in coronal and sagittal projections.; COMPARISON: CT abdomen pelvis 07/18/2016.; FINDINGS:; LOWER CHEST: The lung bases are clear. Heart is normal in size. No pleural or pericardial effusion is; seen.; LIVER: The liver is normal in size and contour. No hepatic lesion is seen. The portal and hepatic vei; ns are patent.; BILIARY SYSTEM: No intrahepatic biliary ductal dilatation is seen. The common duct is normal in calib; er. The gallbladder is unremarkable with no focal or diffuse wall thickening seen. No pericholecystic; fluid is seen. No calcified biliary calculi are identified.; PANCREAS: The pancreas is normal in size, contour and density. No solid or cystic pancreatic mass is; seen. No pancreatic duct dilatation is seen.; SPLEEN: The spleen is normal in size and without focal lesion.; ADRENALS: The adrenal glands are unremarkable.; KIDNEYS/URETERS: The kidneys are normal in size with a stable subcentimeter or focal cysts. Stable bi; lateral stones measuring up to 6 mm right lower pole and 4 mm left interpole; without hydronephrosis.; ; URINARY BLADDER: The urinary bladder is unremarkable without calcified stone, wall thickening or dive; rticula seen.; UTERUS/ADNEXA: Within normal size limits with no suspicious lesion.; AORTA AND ILIAC ARTERIES: No aneurysmal dilatation of the aorta or iliac arteries is seen.; INFERIOR VENA CAVA AND PELVIC VEINS: No deep venous thrombosis is seen.; LYMPH NODES: No enlarged adenopathy.; GASTROINTESTINAL: Stomach, duodenum, and proximal small bowel normal in caliber. Slight increased num; sal of moderately dilated, unopacified fluid-filled small bowel loops in the right hemiabdomen and lo; wer quadrant, with transition toward the terminal ileum, and relative collapse of the colon. Colonic; diverticulosis noted without findings of acute diverticulosis.; PERITONEUM/RETROPERITONEUM: No ascites or suspicious fluid collection, extraluminal air, or suspiciou; s mass.; ABDOMINAL/PELVIC WALL: No hernia is identified.; OSSEOUS STRUCTURES/SOFT TISSUES: No suspicious osseous lesion, acute fracture, or soft tissue abnorma; lity. Multilevel moderate degenerative spurring of the lower thoracic spine.; IMPRESSION :; Partial small bowel obstruction again noted as described, slightly increased from prior study. Stable; remaining findings as described.; ; Outcome: 21:38 Discharge ordered by Provider. cc10 22:03 Discharge Assessment: patient administered narcotics - yes. Pt provided with safe ms2 discharge. The following High Risk Discharge criteria are identified: None. Discharged to home ambulatory, with family. Condition: stable. Discharge instructions given to patient, Instructed on discharge instructions, follow up and referral plans. medication usage, no driving heavy equipment, no drinking with medication, Demonstrated understanding of instructions, medications, Pt was receptive of discharge instructions/ teaching. Prescriptions given X one faxed. CT Study completed. 22:04 Patient left the ED. ms2 Signatures: Dispatcher [employer] EDMS Jude Spain,ADRIANNE RN ms2 Margie Lilly, Reg Reg gb Rabia Nuñez RN RN kr3 Tana StevensonRN RN lf1 Tj Cruz, PAY STATION DEPARTMENT MANAGER PAY STATION DEPARTMENT MANAGER dd6 Bhavin Limon, PA-C PA-C cc10 Cira Calvillo RN RN ms18 Quynh Villalobos, Reg Reg hs2 Cira Calvillo RN ms18 Corrections: (The following items were deleted from the chart) 22:01 21:59 PO 0, Note:voided x1 in ed. ms2 ms2 Chart Complete MTDD
--- NOTE | 2016-09-12 23:06 | EDDOCDS ---
Physician Documentation [facility] Name: Briseyda Cheng Age: 60 yrs Sex: Female : 1955 Arrival Date: 09/10/2016 Time: 16:06 Bed I6 Private MD: Halley Garcia A Disposition: 09/10/16 21:38 Discharged to Home/Self Care. Impression: Generalized abdominal pain - partial chronic SBO. - Condition is Stable. - Discharge Instructions: Abdominal Pain, Adult, Clear Liquid Diet. - Prescriptions for Reglan 10 mg Oral Tablet - take 1 tablet by ORAL route every 6 hours take 30 minutes before meals and at bedtime; 20 tablet. - Medication Reconciliation, Local Pharmacy Hours form. - Follow up: Jacoby June MD; When: Tomorrow; Reason: Wound/Symptom Recheck, Recheck today's complaints, Worsening of conditions, Continuance of care. - Problem is an acute exacerbation. - Symptoms have improved. Historical: - Allergies: Cipro PO (Hives); SEASONAL ALLERGIES; Indocinhypertension; Valiumhyperactivity; VioxxCHF; Tomato (Solanum Lycopersicum); - Home Meds: 1. atorvastatin 10 mg oral tab 1 tab once daily (Last dose: 09/09/2016 19:00) 2. Calcium Citrate 630 mg Oral twice a day (Last dose: 09/10/2016 07:00) 3. enalapril maleate 10 mg Oral tab 1 tab once daily (Last dose: 09/10/2016 07:00) 4. gabapentin 300 mg Oral cap 3 times per day (Last dose: 09/10/2016 07:00) 5. hydrochlorothiazide 25 mg Oral tab 1 tab once daily (Last dose: 09/10/2016 07:00) 6. Iron CR 65 mg Oral daily (Last dose: 09/10/2016 07:00) 7. meloxicam 7.5 mg oral tab 1 tab once daily (Last dose: 09/10/2016 07:00) 8. metformin 1,000 mg Oral tab 1 tab 2 times per day (Last dose: 09/10/2016 07:00) 9. pantoprazole 40 mg oral TbEC 1 tab once daily (Last dose: 09/10/2016 07:00) 10. potassium citrate 10 mEq (1,080 mg) oral TbER 3 times per day (Last dose: 09/10/2016 07:00) 11. Vitamin D3 oral 800 unit daily (Last dose: 09/10/2016 07:00) - PMHx: Twisted bowel; Anemia; Kidney stones; Hypercholesterolemia; low magnesium; Arthritis; CHF; Colitis; Diabetes - NIDDM: controlled; Diverticulitis; Hypertension; kidney surgery bilateral; small bowel obstruction; - PSHx: ; Kidney stone removal; tonsilectomy; - Social history: Smoking status: Patient states was never smoker of tobacco. No barriers to communication noted, The patient speaks fluent Chilean, Speaks appropriately for age. - Family history: Not pertinent. - : The pt / caregiver states he / she is not on anticoagulants. Home medication list is obtained from the patient. - Exposure Risk Screening:: None identified. Vital Signs: 09/10 16:08 BP 181 / 88; Pulse 71; Resp 20 S; Temp 99.0(O); Pulse Ox 99% on R/A; Weight 72.57 kg / dd6 159.99 lbs (R); Height 4 ft. 10 in. (147.32 cm) (R); 19:46 BP 148 / 78; Pulse 88; Resp 20 S; Pulse Ox 97% on R/A; Pain 4/10; ms2 21:59 BP 136 / 78; Pulse 101; Resp 20 S; Temp 99.3(T); Pulse Ox 94% on R/A; Pain 3/10; ms2 16:08 Body Mass Index 33.44 (72.57 kg, 147.32 cm) dd6 MDM: 17:34 [facility] Payment Agreement was scanned into [employer] and attached to record. gb 17:58 Ondansetron 4 mg IVP once ordered. cc10 17:58 ketorolac 30 mg IVP once ordered. cc10 17:58 IV Saline Lock ordered. cc10 17:58 Undress patient appropriately for examination ordered. cc10 17:58 NS 0.9% 1000 ml IV at 250 mL/hr continuous ordered. cc10 17:59 Basic Metabolic Profile Ordered. EDMS 17:59 CBC with Diff Ordered. EDMS 17:59 Lipase Ordered. EDMS 17:59 Liver Profile Ordered. EDMS 17:59 Partial Thromboplastin Time Ordered. EDMS 17:59 Prothrombin Time Profile\E\INR Ordered. EDMS 17:59 Urinalysis Ordered. EDMS 17:59 Cardiac Marker Panel Ordered. EDMS 17:59 Troponin Ordered. EDMS 17:59 Urine Culture Ordered. EDMS 17:59 Abdomen, Flat\E\Upright,PA Chest Ordered. EDMS 18:00 NOTHING BY MOUTH+DIET ordered. EDMS 18:00 ECG WITH READING ER PHYS+CARDIAG ordered. EDMS 18:11 Financial registration complete. gb 19:24 Basic Metabolic Profile Reviewed. cc10 19:24 CBC with Diff Reviewed. cc10 19:24 Liver Profile Reviewed. cc10 19:24 Partial Thromboplastin Time Reviewed. cc10 19:24 Prothrombin Time Profile\E\INR Reviewed. cc10 19:24 Cardiac Marker Panel Reviewed. cc10 19:24 Lipase Reviewed. cc10 19:25 Metoclopramide 10 mg IV at 40 mg/hr once over 15 mins ordered. cc10 19:26 morphine 4 mg IVP once ordered. cc10 19:27 CT ABD & PELVIS: IV Contrast Only Ordered. EDMS 21:39 oxyCODONE-acetaminophen 4 pack 5 mg-325 mg 1 packets PO once; Dispense with pt, take as cc10 per instruction on package ordered. 09/11 02:33 T-Sheet-- Draft Copy was scanned into [employer] and attached to record. hs2 10:36 ECG/EKG was scanned into [employer] and attached to record. gb 10:37 Radiology Report was scanned into [employer] and attached to record. gb Administered Medications: 09/10 18:33 Drug: Ondansetron 4 mg [ondansetron HCl 2 mg/mL intravenous solution (2 mL)] Route: ms18 IVP; Site: right antecubital; 18:33 Drug: ketorolac 30 mg [ketorolac 30 mg/mL (1 mL) injection solution (1 mL)] Route: IVP; ms18 Site: right antecubital; 18:33 Drug: NS 0.9% 1000 ml [sodium chloride 0.9 % intravenous solution] Route: IV; Rate: 250 ms18 mL/hr; Site: right antecubital; 19:42 Drug: morphine 4 mg [morphine 4 mg/mL intravenous cartridge (1 mL)] Route: IVP; Site: ms2 left antecubital; 19:46 Follow up: BP 148 / 78; Pulse 88 bpm; Resp 20 bpm Spontaneous; Pulse Ox 97% RA; Pain ms2 4/ Adult; no change 19:45 Drug: Metoclopramide 10 mg [metoclopramide 5 mg/mL injection solution] Route: IV; Rate: ms2 40 mg/hr; Infused Over: 15 mins; Site: left antecubital; 21:51 Drug: oxyCODONE-acetaminophen 4 pack 1 packets [oxycodone-acetaminophen 5 mg-325 mg ms2 tablet (1 tabs)] {Co-Signature: ms18 (Cira Calvillo RN).} Route: PO; Signatures: Dispatcher [employer] EDMS Jude SpainRN RN ms2 Margie Lilly, Reg Reg gb Tana Stevenson RN RN lf1 Bhavin Limon PA-C PABisi cc10 Cira Calvillo RN RN ms18 Quynh Villalobos, Reg Reg hs2 Cira Calvillo RN ms18 The chart was reviewed and I authenticate all verbal orders and agree with the evaluation and treatment provided.Attachments: 17:34 [facility] Payment Agreement gb 09/11 02:33 T-Sheet-- Draft Copy hs2 10:36 ECG/EKG gb Chart Complete MTDD
== END 2016-09-10 22:04 | disposition home or self-care (01) ==
LOC: M ED 16:06
DX: K31.5 Obstruction of duodenum (principal); D64.9 Anemia, unspecified; Z87.442 Personal history of urinary calculi; E78.00 Pure hypercholesterolemia, unspecified; E83.42 Hypomagnesemia; M12.9 Arthropathy, unspecified; I50.20 Unspecified systolic (congestive) heart failure; K52.9 Noninfective gastroenteritis and colitis, unspecified; E11.9 Type 2 diabetes mellitus without complications; K57.32 Diverticulitis of large intestine without perforation or abscess without bleeding; I10 Essential (primary) hypertension; Z79.899 Other long term (current) drug therapy; Z79.84 Long term (current) use of oral hypoglycemic drugs; Z88.1 Allergy status to other antibiotic agents; Z88.8 Allergy status to other drugs, medicaments and biological substances; Z91.018 Allergy to other foods
CPT/HCPCS: 36415; 74022; 74177; 80048; 80076; 81001; 82550; 82553; 83690; 85025; 85610; 85730; 87086; 93005; 99284; J1885; J2405; J2765; Q9967

== ENCOUNTER → 2016-09-24 | Day surgery (SDC) | payer MEDICAID ==
[~2016-09-24] VITALS: Ht 144.8 cm; Wt 72.6 kg
[~2016-09-24] MED LIST changes: +BUPIVACAINE/EPIN 0.25% 30 ML VIAL As Ordered ONE; +BUPIVACAINE/EPIN 0.25% 30 ML VIAL XX ONE; +GLYCOPYRROLATE INJ 0.2 MG/ML 2 ML VIAL As Ordered ONE; +LABETALOL HCL 100 MG/20 ML VIAL As Ordered ONE; +LIDOCAINE 2% INJ 100 MG/5 ML SDV (FOR ANES.) As Ordered ONE; +LR 1,000 ML IV SCH; +MAGN250T9 PO; +METOCLOPRAMIDE INJ 10MG/2ML VIAL (J2765) As Ordered ONE; +MIDAZOLAM INJ 2 MG/2 ML VIAL (J2250) As Ordered ONE; +MORPHINE 2 MG/ML 1ML SYRINGE IV PRN; +NEOSTIGMINE 1MG/ML 5 ML SYRINGE (J2710) As Ordered ONE; +NORCO, ANEXSIA 5/325MG TABLET (HYDROcodone/ACETAMINOPHEN) PO PRN; +ONDANSETRON 4MG/2ML VIAL (J2405) As Ordered ONE; +ONDANSETRON 4MG/2ML VIAL (J2405) IV PRN; +PHENYLephrine HCL 500 MCG/5 ML (100MCG/ML) SYRINGE (J2370) As Ordered ONE; +PROPOFOL 200 MG/20 ML VIAL As Ordered ONE; +ROCURONIUM BROMIDE 50 MG/5 ML VIAL As Ordered ONE; +ceFAZolin SOD 1 GM in D5W MINI-BAG PLUS 50 ML IV ONE; +fentaNYL 100 MCG/2 ML INJECTION (J3010) IV PRN; +fentaNYL 250 MCG/5 ML INJECTION (J3010) As Ordered ONE
[2016-09-24] MEDS: NORCO, ANEXSIA 5/325MG TABLET (HYDROcodone/ACETAMINOPHEN) PO PRN ×2 (14:51→15:23)
--- NOTE | 2016-09-24 14:58 | RO ---
DATE OF PROCEDURE: 09/24/2016 PREPROCEDURE DIAGNOSIS: Recurrent small-bowel obstructions. POSTPROCEDURE DIAGNOSIS: Recurrent small-bowel obstructions. PROCEDURE: Diagnostic laparoscopy. SURGEON: Jacoby June MD SHOE STITCHER ODD: Dr. Rachel (Indications for distribution center assistant: Dr. Rachel provided exposure, retraction and visualization with the camera and identification of important structures). ESTIMATED BLOOD LOSS: Minimal. FLUIDS: Crystalloid. ANESTHESIA: General endotracheal anesthesia. DISPOSITION: The patient was taken to recovery room awake, alert and hemodynamically stable. DESCRIPTION OF PROCEDURE: The patient was taken to the operating room and was given general anesthesia. After adequate anesthesia and preoperative antibiotics, the patient was prepped and draped in the usual sterile fashion. Next, a left subcostal 5 mm trocar was placed. With skin knife, blunt dissection was carried down to fascia. With a curved hemostat and a Veress needle placed into the abdominal cavity, insufflated to 15 mm of pressure. Next, a dilating 5 mm trocar was placed at the site and under direct visualization two additional 5 mm trocars were used. Next, the omentum was retracted superiorly. This was not adherent to anything, was not in the pelvis or umbilicus and I was able to mobilize this up and over the liver at this time. I was able to see the under surface of the transverse colon. Starting there, I was able to go with what I felt was the proximal jejunum and follow this back towards the ligament Treitz, found it diving underneath the mesentery of the transverse colon and then worked my way back down to the ileocecal valve. The bowel itself was somewhat injected appearing, but there were no masses appreciated on it. No inflammation, per se. No evidence of infection. It was somewhat edematous throughout with, as I stated previously, some injected vessels. The patient did have a extremely small Meckel's diverticulum, but I did not feel any mass in that area and did not feel any evidence of additional tissue in that area. There were no attachments to the diverticulum. Walking my way down further in the small bowel, I could see Jeferson's veil, as well as the ileocecal valve. There is no attachments. No evidence of obstruction, and the bowel was all decompressed in the distal jejunum and all the ileum. Then working my way back from the ileocecal valve up to the ligament of Treitz again, once again not seeing any evidence of masses or lesions in the bowel, there was some significant contractions throughout the bowel but no obvious masses. No evidence of inflammatory process. Thus, the appendix was seen and the tip of the appendix mostly was evaluated. Given that was visualized after rotating the patient extreme to the right and Trendelenburg and appeared normal size and an inch or so of the appendix was seen and appeared normal. The cecum itself was palpated, but palpated as no mass that I could appreciate and was somewhat mobile was well. The patient's right upper quadrant was then evaluated and the gallbladder was seen and did not reveal any masses or any adhesions on it. The omentum was able to be brought back down in the peritoneal cavity at this time. All trocar sites were visualized while the scope was removed. All incisions were closed with #4-0 Vicryl. Steri-Strips and dry sterile dressing was applied. The patient was awakened from her anesthesia, extubated, brought to recovery room awake, alert, hemodynamically stable. Sponge and needle counts correct times two.
[2016-09-24 16:20] VITALS: BP 136/84
== END | disposition home or self-care (01) ==
LOC: M SDC 09:50
PROVIDERS: ATTEND Surgery
DX: K56.60 Unspecified intestinal obstruction (principal); E11.9 Type 2 diabetes mellitus without complications; I10 Essential (primary) hypertension; M12.9 Arthropathy, unspecified; E78.00 Pure hypercholesterolemia, unspecified; K21.9 Gastro-esophageal reflux disease without esophagitis; D64.9 Anemia, unspecified; G89.29 Other chronic pain; Z88.1 Allergy status to other antibiotic agents; Z91.018 Allergy to other foods; Z79.899 Other long term (current) drug therapy; Z87.442 Personal history of urinary calculi; Z78.0 Asymptomatic menopausal state
CPT/HCPCS: 49320; J0690; J2250; J2370; J2405; J2710; J2765; J3010

== ENCOUNTER 2016-10-24 14:46 | Inpatient (IN) | payer MEDICAID, OTHER ==
[~2016-10-24] VITALS: Ht 144.8 cm; Wt 72.6 kg
[~2016-10-24 14:46] MED LIST changes: -BUPIVACAINE/EPIN 0.25% 30 ML VIAL As Ordered ONE; -BUPIVACAINE/EPIN 0.25% 30 ML VIAL XX ONE; -GLYCOPYRROLATE INJ 0.2 MG/ML 2 ML VIAL As Ordered ONE; -LABETALOL HCL 100 MG/20 ML VIAL As Ordered ONE; -LIDOCAINE 2% INJ 100 MG/5 ML SDV (FOR ANES.) As Ordered ONE; -LR 1,000 ML IV SCH; -METOCLOPRAMIDE INJ 10MG/2ML VIAL (J2765) As Ordered ONE; -MIDAZOLAM INJ 2 MG/2 ML VIAL (J2250) As Ordered ONE; -MORPHINE 2 MG/ML 1ML SYRINGE IV PRN; -NEOSTIGMINE 1MG/ML 5 ML SYRINGE (J2710) As Ordered ONE; -NORCO, ANEXSIA 5/325MG TABLET (HYDROcodone/ACETAMINOPHEN) PO PRN; -ONDANSETRON 4MG/2ML VIAL (J2405) As Ordered ONE; -ONDANSETRON 4MG/2ML VIAL (J2405) IV PRN; -PHENYLephrine HCL 500 MCG/5 ML (100MCG/ML) SYRINGE (J2370) As Ordered ONE; -PROPOFOL 200 MG/20 ML VIAL As Ordered ONE; -ROCURONIUM BROMIDE 50 MG/5 ML VIAL As Ordered ONE; -ceFAZolin SOD 1 GM in D5W MINI-BAG PLUS 50 ML IV ONE; -fentaNYL 100 MCG/2 ML INJECTION (J3010) IV PRN; -fentaNYL 250 MCG/5 ML INJECTION (J3010) As Ordered ONE
[2016-10-24] MEDS ORDERED: NS 500 ML IV ONE (15:45)
[2016-10-24] MEDS ORDERED: ONDANSETRON 4MG/2ML VIAL (J2405) IV ONE (15:45)
[2016-10-24] MEDS ORDERED: MORPHINE 4 MG/ML 1ML SYRINGE IV ONE (15:45)
[2016-10-24 16:09] LABS: MEAN CORPUSCULAR HEMOGLOBIN 30.5 pg (27.0-33.0); MEAN CORPUSCULAR HGB CONC 35.7 g/dl (32.0-36.5); MEAN CORPUSCULAR VOLUME 85.4 fl (80.0-96.0); RED CELL DISTRIBUTION WIDTH 14.6 % (11.5-14.5); WHITE BLOOD COUNT 12.2 K/mm3 (4.0-10.0)
[2016-10-24 16:35] LABS: ALBUMIN 4.2 GM/DL (3.2-5.2); ALBUMIN/GLOBULIN RATIO 1.27 (1.00-1.93); ALKALINE PHOSPHATASE 75 U/L (45-117); ALT/SGPT 18 U/L (12-78); AMYLASE 50 U/L (25-115); ANION GAP 16 MEQ/L (8-16); AST/SGOT 16 U/L (15-37); BILIRUBIN,TOTAL 0.9 MG/DL (0.2-1.0); BLOOD UREA NITROGEN 16 MG/DL (7-18); CALCIUM LEVEL 9.2 MG/DL (8.8-10.2); CARBON DIOXIDE LEVEL 22 MEQ/L (21-32); CHLORIDE LEVEL 101 MEQ/L (98-107); CREATININE FOR GFR 0.87 MG/DL (0.55-1.02); GLOMERULAR FILTRATION RATE > 60.0 (>45); GLUCOSE, FASTING 150 MG/DL (80-110); POTASSIUM SERUM 3.6 MEQ/L (3.5-5.1); SODIUM LEVEL 139 MEQ/L (136-145); TOTAL PROTEIN 7.5 GM/DL (6.4-8.2)
[2016-10-24] MEDS ORDERED: METOCLOPRAMIDE INJ 10MG/2ML VIAL (J2765) IV ONE (16:45)
[2016-10-24] MEDS ORDERED: HYDROmorphone HCL 1 MG/ML SYRINGE (J1170) IV ONE (16:45)
[2016-10-24] MEDS ORDERED: PIPERACILLIN/TAZOBACTAM SOD 3.375 GM in D5W MINI-BAG PLUS 50 ML IV ONE (17:00)
[2016-10-24] MEDS ORDERED: SODIUM CHLORIDE 0.9% 1000 ML IV SCH (17:00)
[2016-10-24] MEDS ORDERED: ENAL20TA PO (17:11)
[2016-10-24] MEDS ORDERED: MELO15TA4 PO (17:11)
[2016-10-24] MEDS ORDERED: PANT40TA2 PO (17:11)
[2016-10-24 17:30] LABS: ABG pH (ARTERIAL) 7.549 UNITS (7.350-7.450)
[2016-10-24 17:31] LABS: ABG BASE EXCESS -0.3 (-2.0-2.0); ABG HCO3 20.7 MEQ/L (22.0-26.0); ABG PARTIAL PRESSURE CO2 24.2 mmHg (35.0-45.0); ABG STANDARD HCO3 24.3 MEQ/L (22.0-26.0); ABG TOTAL CO2 21.4 MEQ/L (23.0-31.0)
[2016-10-24] MEDS ORDERED: LR 1,000 ML IV SCH (18:47)
--- NOTE | 2016-10-24 18:48 | REP ---
CT ABDOMEN: REASON: Diffuse abdominal pain. COMPARISON: 09/10/2016, a contrast enhanced exam. The lack of intravenous and oral bowel prep contrast agents decrease the sensitivity of the exam. The lung bases are clear and unchanged. Limited evaluation a solid intraabdominal organs and gallbladder show no gross abnormalities or significant changes from the prior exam. There are no choleliths. Once again, there are bilateral nephroliths. There was no hydronephrosis or hydroureter and there are no ureteroliths. There are no urinary bladder calcifications. There are bilateral pelvic phleboliths status quo, limited evaluation of the pancreas and adrenal glands show no gross abnormalities or significant changes from the prior exam. Limited evaluation of the abdominal aorta and paraaortic regions show no gross abnormalities or significant changes from the prior exam. There is no evidence of free fluid or free air in the abdomen or pelvis. There are multiple dilated fluid and gas filled bowel loops in abdomen and pelvis which are particularly small bowel. There is colonic diverticulosis. The appendix is well visualized and is within normal limits. Bone window technique throughout the exam shows no change in osseous structures. IMPRESSION: 1. Once again, partial small bowel obstruction versus extensive ileus is suspected as described above. This needs to be correlated clinically with followup. 2. Unchanged nonobstructing bilateral nephroliths. 3. Other findings and exam limitations as described above. Signed by Franklin Orlando DO 10/25/2016 11:53 A
[2016-10-24] MEDS ORDERED: MORPHINE 2 MG/ML 1ML SYRINGE IV PRN (19:00)
[2016-10-24] MEDS: ONDANSETRON 4MG/2ML VIAL (J2405) IV PRN (19:31)
[2016-10-24] MEDS: MORPHINE 4 MG/ML 1ML SYRINGE IV PRN ×3 (19:32→23:52)
[2016-10-24 20:00] VITALS: BP 164/80
[2016-10-24] MEDS: LR 1,000 ML IV SCH (23:51)
[2016-10-25 02:00] VITALS: BP 130/66
[2016-10-25] MEDS: ONDANSETRON 4MG/2ML VIAL (J2405) IV PRN ×4 (02:14→21:00)
[2016-10-25 05:10] VITALS: BP 140/76
[2016-10-25] MEDS: MORPHINE 4 MG/ML 1ML SYRINGE IV PRN ×7 (05:10→23:51)
[2016-10-25] MEDS: METOCLOPRAMIDE INJ 10MG/2ML VIAL (J2765) IV PRN (05:15)
[2016-10-25] MEDS: LR 1,000 ML IV SCH ×3 (06:33→21:01)
[2016-10-25 06:44] LABS: BLOOD UREA NITROGEN 15 MG/DL (7-18); CHLORIDE LEVEL 106 MEQ/L (98-107); CREATININE FOR GFR 0.66 MG/DL (0.55-1.02); GLUCOSE, FASTING 140 MG/DL (80-110); POTASSIUM SERUM 3.6 MEQ/L (3.5-5.1); SODIUM LEVEL 141 MEQ/L (136-145)
[2016-10-25 06:51] LABS: MEAN CORPUSCULAR HEMOGLOBIN 29.2 pg (27.0-33.0); MEAN CORPUSCULAR HGB CONC 33.3 g/dl (32.0-36.5); MEAN CORPUSCULAR VOLUME 87.8 fl (80.0-96.0); PLATELET COUNT, AUTOMATED 217 k/mm3 (150-450); RED CELL DISTRIBUTION WIDTH 14.8 % (11.5-14.5)
[2016-10-25 06:55] LABS: CALCIUM LEVEL 8.1 MG/DL (8.8-10.2)
[2016-10-25 08:08] LABS: BANDS 5 % (< 11)
[2016-10-25] MEDS: PANTOPRAZOLE 40MG INJ (PROTONIX) (C9113) IV SCH (08:25)
[2016-10-25 08:26] LABS: ANION GAP 11 MEQ/L (8-16); CARBON DIOXIDE LEVEL 24 MEQ/L (21-32)
--- NOTE | 2016-10-25 09:12 | HPE ---
DATE OF ADMISSION: 10/24/2016 The patient will be placed on observation status. REASON FOR OBSERVATION STATUS: Abdominal pain with nausea and vomiting. HISTORY OF PRESENT ILLNESS: The patient is a 60-year-old woman with a recent history of several admissions to the hospital for abdominal pain with associated nausea and vomiting. Initial admission was back on 07/18/2016. She was evaluated with a CT scan and then observed and discharged after her symptoms resolved. She subsequently presented on 08/18/[address] and again had a CT scan obtained. Her CT scans for her several admissions have shown some fluid-filled mid to distal small bowel without a distinct point of obstruction as well as a small amount of free fluid usually in the right side of the abdomen. There has been no evidence for a hernia. There are no acute inflammatory changes identified. I had seen her on 08/20/2016 during that hospitalization. She did have a small bowel follow through study done during that stay which showed no evidence of obstruction within the small bowel. She followed up with Dr. June in the office and because of her recurring symptoms he performed a diagnostic laparoscopy on 09/24/2016 with no findings that would explain her symptoms. He described that he found no adhesions of any significance. He did describe identifying a very small Meckel's diverticulum. This was of course done when the patient was asymptomatic. She was discharged on the day of surgery and has done okay until today when she noted the sudden onset of pain across her upper abdomen. She indicated that about 2 o'clock in the afternoon she noted the onset of nausea and vomiting and had severe pain across the upper abdomen. She threw up multiple times at home, but presented to the emergency department by 2:46 in the afternoon. At the time I saw her, she complained that she had had emesis on approximately eight episodes. She was treated in the emergency department with some antiemetics and a small fluid bolus. She underwent repeat CT scan with some mildly dilated fluid filled loops of mid to distal small bowel with no definite point of obstruction. She received a dose of morphine and a small dose of Dilaudid and I was consulted to evaluate the patient regarding her possible obstruction versus ileus. The patient is now being placed on observation status to treat her symptomatically. ALLERGIES (The patient has allergies reported to): - DIAZEPAM - INDOMETHACIN - CIPROFLOXACIN - ROFECOXIB - TOMATOES CURRENT MEDICATIONS (include) - vitamin D3 1000 units by mouth daily - metformin 1000 mg by mouth twice daily - atorvastatin 10 mg by mouth daily at bedtime - hydrochlorothiazide 25 mg by mouth daily - ferrous sulfate 325 mg by mouth twice daily - gabapentin 300 mg by mouth three times a day - potassium citrate 10 mEq by mouth three times a day - black cohosh 20 mg by mouth twice daily - magnesium oxide 250 mg by mouth daily - enalapril 20 mg by mouth daily - pantoprazole 40 mg by mouth daily - meloxicam 15 mg by mouth daily MEDICAL HISTORY: Significant for diabetes mellitus. She has a history of dyslipidemia. She has some arthritis and hypertension. She has a long history of renal stones and has had several surgical procedures associated with these renal stones. SURGICAL HISTORY: Significant for a section about 28 years ago. She has had several open procedures for renal stones with two procedures on the right through large flank incisions and a recent laparoscopic approach on the left for a renal stone in November 2015. She underwent a diagnostic laparoscopy by Dr. June on 09/24/2016. FAMILY HISTORY: Noncontributory. SOCIAL HISTORY: The patient is a nonsmoker and denies alcohol use. She reports that she is vegan. 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 REVIEW OF SYSTEMS: Reveals no history of cardiac or respiratory problems. She denies any history of deep vein thrombosis (DVT) or pulmonary embolus. She had a colonoscopy back in about September 2015 that revealed some diverticulosis as well as some hemorrhoids. She has a history of a previous adenomatous polyp. The remainder of her review of systems is unremarkable. PHYSICAL EXAM: Reveals a pleasant obese woman sitting quietly on the emergency room stretcher. Her most recent vital signs are temperature of 97.9, with pulse of 89, respirations of 20, and a blood pressure of 168/79. The patient is alert, oriented and cooperative. She appears mildly uncomfortable. She is not currently vomiting. Skin is warm and dry. She is not icteric either of the skin or the sclerae. Mucous membranes are moist. The neck is supple without mass. She has no cervical bruits identified on auscultation. Heart exam shows a regular rhythm which is about 100 at this point. The lungs are clear to auscultation bilaterally. The abdomen is quite obese. She does have two long old scars along the right flank. There are a few smaller old scars in the left upper quadrant flank area. She has three recent trocar sites in the left upper quadrant, left lower quadrant and lower mid abdomen. She has bowel sounds auscultated in all four quadrants. She has a little mild tenderness to percussion, mostly in the mid epigastrium and left upper quadrant. Palpation reveals the abdomen to be soft throughout without rebound tenderness. There is no guarding. No masses appreciated and she has no evident hernia. Extremities are without peripheral edema. Laboratories today show a white count of 12.2 with a hemoglobin of 12, hematocrit of 34 and a platelet count of 266,000. She had a chemistry profile that showed a sodium of 139, potassium 3.6, chloride 101, CO2 of 22, BUN of 16, creatinine 0.87, and a glucose of 150. Liver function tests are normal. Total protein is 7.5 with an albumin of 4.2. Amylase and lipase are normal. She had a lactic acid that was done that showed it to be 5.7, which was high. An arterial blood gas was done which showed a pH of 7.55, pCO2 of 24 and a pO2 of 118. An urinalysis was not suggestive of a urinary tract infection. I would note that she had an inflammatory bowel disease panel back on 08/19/2016 which was negative. She had a CT scan of the abdomen and pelvis today and the results are as noted in the history of present illness. IMPRESSION: 1. Upper abdominal pain with nausea and vomiting of unclear etiology, recurrent. 2. Diabetes mellitus. 3. Dyslipidemia. 4. Hypertension. 5. History of renal stones. 6. Obesity. 7. Arthritis. 8. Osteoarthritis. PLAN: The patient has had a recent diagnostic laparoscopy which did not identify a cause for a partial intestinal obstruction. I reviewed her four recent CAT scans from July until today and they all look quite similar in that they identify some fluid-filled mid to distal small bowel with no definite point of obstruction. There is a little bit of free fluid in the right side of the abdomen noted on perhaps all of the studies. The gallbladder is mildly full in all studies, but there is no sign of acute cholecystitis and no stones were seen. She did have a gallbladder ultrasound, I believe during her first attack, that showed no evidence of gallstones. The etiology of her problem is unclear. She had a small bowel follow-through study also in August that showed no definite small bowel abnormality with flow into the colon within an hour. The patient does not appear to be able to go home given her vomiting and her pain. She will be placed on observation status for now to administer analgesics and also antiemetics. Hopefully, her symptoms will resolve readily. She will receive some IV hydration with a small initial bolus. Because her lactic acid level was elevated at presentation, this will be checked after 6 hours as a routine followup. The patient was counseled regarding the plan for care. At this point , I do not anticipate the patient requiring surgery given her recent negative diagnostic laparoscopy. DAVID
[2016-10-25 10:00] VITALS: BP 137/71
[2016-10-25 14:00] VITALS: BP 168/80
[2016-10-25 20:40] VITALS: BP 151/74
[2016-10-26] VITALS (9 sets, daily range): BP systolic 134–173; BP diastolic 64–82
[2016-10-26] MEDS: METOCLOPRAMIDE INJ 10MG/2ML VIAL (J2765) IV PRN ×3 (01:46→16:26)
[2016-10-26] MEDS: MORPHINE 4 MG/ML 1ML SYRINGE IV PRN ×4 (02:08→10:38)
[2016-10-26] MEDS: LR 1,000 ML IV SCH (04:54)
[2016-10-26] MEDS: ONDANSETRON 4MG/2ML VIAL (J2405) IV PRN ×3 (04:54→22:43)
[2016-10-26 06:45] LABS: BASO % 0.1 % (0.0-1.0); EOS # 0.2 K/mm3 (0.0-0.50); EOS % 3.8 % (0.0-3.0); LARGE UNSTAINED CELL # 0.3 K/mm3 (0.0-0.4); LYMPH # 1.1 K/mm3 (1.5-4.5); MEAN CORPUSCULAR HEMOGLOBIN 29.9 pg (27.0-33.0); MEAN CORPUSCULAR HGB CONC 33.8 g/dl (32.0-36.5); MEAN CORPUSCULAR VOLUME 88.3 fl (80.0-96.0); MONO # 0.3 K/mm3 (0.0-0.8); MONO % 6.1 % (0.0-5.0); NEUTROPHILS % 61.2 % (36.0-66.0); PLATELET COUNT, AUTOMATED 192 k/mm3 (150-450); RED CELL DISTRIBUTION WIDTH 14.9 % (11.5-14.5); WHITE BLOOD COUNT 4.8 K/mm3 (4.0-10.0)
[2016-10-26 07:09] LABS: ALBUMIN 3.2 GM/DL (3.2-5.2); ALBUMIN/GLOBULIN RATIO 1.14 (1.00-1.93); ALKALINE PHOSPHATASE 45 U/L (45-117); ALT/SGPT 13 U/L (12-78); ANION GAP 9 MEQ/L (8-16); AST/SGOT 13 U/L (15-37); BILIRUBIN,TOTAL 0.6 MG/DL (0.2-1.0); BLOOD UREA NITROGEN 8 MG/DL (7-18); CALCIUM LEVEL 7.7 MG/DL (8.8-10.2); CARBON DIOXIDE LEVEL 27 MEQ/L (21-32); CHLORIDE LEVEL 106 MEQ/L (98-107); GLOMERULAR FILTRATION RATE > 60.0 (>45); GLUCOSE, FASTING 112 MG/DL (80-110); POTASSIUM SERUM 3.7 MEQ/L (3.5-5.1); SODIUM LEVEL 142 MEQ/L (136-145)
[2016-10-26] MEDS: PANTOPRAZOLE 40MG INJ (PROTONIX) (C9113) IV SCH (08:48)
[2016-10-26] MEDS: hydroCHLOROthiazide 25 MG TAB PO SCH (11:58)
[2016-10-26] MEDS: ENALAPRIL MALEATE 10 MG TAB PO SCH (12:02)
[2016-10-26] MEDS: VITAMIN D 1,000 INTERNATIONAL UNITS TABLET PO SCH (12:02)
[2016-10-26] MEDS: MELOXICAM (MOBIC) 7.5 MG TAB PO SCH (14:43)
[2016-10-26] MEDS ORDERED: ACETAMINOPHEN TAB 650MG DOSE (2X325MG) PO PRN (14:45)
[2016-10-26] MEDS: NORCO, ANEXSIA 5/325MG TABLET (HYDROcodone/ACETAMINOPHEN) PO PRN ×2 (14:57→21:40)
[2016-10-26] MEDS ORDERED: POTASSIUM CITRATE 1080 MG (10MEQ) TAB PO SCH (16:00)
[2016-10-26] MEDS: GABAPENTIN 300 MG CAP PO SCH ×2 (16:26→20:23)
[2016-10-26] MEDS: POTASSIUM CITRATE 1080 MG (10MEQ) TAB PO SCH (17:33)
[2016-10-26] MEDS: metFORMIN (GLUCOPHAGE) 1000 MG TABLET PO SCH (17:33)
[2016-10-26] MEDS: FERROUS SULFATE 325MG TAB PO SCH (20:23)
[2016-10-26] MEDS ORDERED: ATORVASTATIN 10 MG TAB PO SCH (21:00)
[2016-10-27 02:00] VITALS: BP 167/82
[2016-10-27] MEDS: METOCLOPRAMIDE INJ 10MG/2ML VIAL (J2765) IV PRN (04:16)
[2016-10-27] MEDS: NORCO, ANEXSIA 5/325MG TABLET (HYDROcodone/ACETAMINOPHEN) PO PRN ×2 (04:16→12:19)
[2016-10-27 05:20] VITALS: BP 168/88
[2016-10-27] MEDS: POTASSIUM CITRATE 1080 MG (10MEQ) TAB PO SCH (08:58)
[2016-10-27] MEDS: GABAPENTIN 300 MG CAP PO SCH (08:58)
[2016-10-27] MEDS: VITAMIN D 1,000 INTERNATIONAL UNITS TABLET PO SCH (08:58)
[2016-10-27] MEDS: FERROUS SULFATE 325MG TAB PO SCH (08:58)
[2016-10-27] MEDS: PANTOPRAZOLE 40MG INJ (PROTONIX) (C9113) IV SCH (08:58)
[2016-10-27] MEDS: MELOXICAM (MOBIC) 7.5 MG TAB PO SCH (08:58)
[2016-10-27 08:59] VITALS: BP 163/73
[2016-10-27] MEDS: hydroCHLOROthiazide 25 MG TAB PO SCH (08:59)
[2016-10-27] MEDS: metFORMIN (GLUCOPHAGE) 1000 MG TABLET PO SCH (08:59)
[2016-10-27] MEDS: ENALAPRIL MALEATE 10 MG TAB PO SCH (08:59)
--- NOTE | 2016-11-05 21:30 | DSES ---
DATE OF ADMISSION: 10/25/2016 DATE OF DISCHARGE: 10/27/2016 ADMISSION DIAGNOSIS: Abdominal pain with nausea and vomiting. HISTORY OF PRESENT ILLNESS: The patient is a 60-year-old woman with a relatively recent history of several admissions to the hospital for abdominal pain with associated nausea and vomiting. Initial admission was back on 07/18/2016. She was evaluated with a CT scan and then observed and discharged after her symptoms resolved. She subsequently presented on 08/18/[address] and [address] had a CT scan obtained. Her CT scans for her several admissions have shown some fluid-filled mid to distal small bowel without a distinct point of obstruction as well as a small amount of free fluid usually in the right side of the abdomen. There has been no evidence for a hernia. There are no acute inflammatory changes identified. I had seen her on 08/20/2016 during that hospitalization. She did have a small bowel followthrough study done during that stay which showed no evidence of obstruction within the small bowel. She followed up with Dr. June in the office and because of her recurring symptoms he performed a diagnostic laparoscopy on 09/24/2016. There were no findings of note. He described no adhesions of any significance. He did identify a very small Meckel's diverticulum which he did not feel was related to her symptoms. She was discharged on the day of surgery and had done well until she noted the sudden onset of pain across her upper abdomen on 10/24/2016. She developed some nausea and vomiting. She threw up multiple times at home and presented to the emergency department at approximately 02:46 in the afternoon. She was treated in the emergency department with some antiemetics and a small fluid bolus. Showed some mildly dilated fluid filled loops of mid to distal small bowel with no definite point of obstruction. She received some narcotic analgesics. She is now placed on observation to treat her symptomatically. HOSPITAL COURSE: The patient was started on some IV fluids. She did not require any antibiotics. She received analgesics as necessary. By the morning of 10/25/2016, she felt better but still somewhat sore. She had had a low grade temperature to 101.3 degrees early in the morning. Her laboratory studies were significant only for some left shift in her differential but her white blood cell count was only 6. Her lactate had been somewhat elevated at the time of admission and fell appropriately later in the evening of 10/24/2016. She was started on some clear liquids and was continued on pain medications. On 10/26/2016, her pain was much improved. She continued to take some anti nausea medications. She had bowel function with several bowel movements. Her white count was only 4.8. Her diagnosis was felt to be most consistent with gastroenteritis. She continued gradual improvement and was discharged home on 10/27/2016. The patient was to resume her preadmission medications. She was to follow up on an as-needed basis. FINAL DIAGNOSES: 1. Abdominal pain with nausea and vomiting consistent with gastroenteritis. 2. Diabetes mellitus. 3. Dyslipidemia. 4. Hypertension. 5. History of renal stones. 6. Obesity. 7. Osteoarthritis. DISPOSITION: The patient was discharged home. She was to followup on an as-needed basis with surgery. She could return to see her primary physician as needed. She was to continue her medications as before admission.
== END 2016-10-27 12:16 | disposition home or self-care (01) | DRG 249 ==
LOC: M ED 15:31 → M ED INP 18:47 → M MSPAV 20:02 → OBSVTOIN 10-25 15:24
PROVIDERS: ADMIT Surgery; ATTEND Surgery
DX: K52.9 Noninfective gastroenteritis and colitis, unspecified (principal); I10 Essential (primary) hypertension; E11.9 Type 2 diabetes mellitus without complications; E78.5 Hyperlipidemia, unspecified; E66.9 Obesity, unspecified; M19.90 Unspecified osteoarthritis, unspecified site; Q43.0 Meckel's diverticulum (displaced) (hypertrophic); Z91.018 Allergy to other foods; Z79.84 Long term (current) use of oral hypoglycemic drugs; Z79.899 Other long term (current) drug therapy

== ENCOUNTER → 2016-11-28 | Outpatient (CLI) | payer OTHER ==
[~2016-11-28] MED LIST changes: +ENAL20TA PO; +GABA-282 PO; -GABA300C3 PO; +MELO15TA4 PO; +PANT40TA2 PO
[2016-11-28 19:00] LABS: BASO % 0.4 % (0.0-1.0); EOS # 0.2 K/mm3 (0.0-0.50); EOS % 2.4 % (0.0-3.0); LARGE UNSTAINED CELL # 0.2 K/mm3 (0.0-0.4); LARGE UNSTAINED CELL % 2.4 % (0.0-4.0); LYMPH # 1.5 K/mm3 (1.5-4.5); MEAN CORPUSCULAR HEMOGLOBIN 29.7 pg (27.0-33.0); MEAN CORPUSCULAR HGB CONC 33.8 g/dl (32.0-36.5); MEAN CORPUSCULAR VOLUME 87.9 fl (80.0-96.0); MONO # 0.4 K/mm3 (0.0-0.8); MONO % 5.5 % (0.0-5.0); NEUTROPHILS # 5.2 K/mm3 (1.8-7.7); NEUTROPHILS % 71.3 % (36.0-66.0); PLATELET COUNT, AUTOMATED 298 k/mm3 (150-450); RED CELL DISTRIBUTION WIDTH 14.8 % (11.5-14.5); WHITE BLOOD COUNT 7.4 K/mm3 (4.0-10.0)
[2016-11-28 19:07] LABS: ALBUMIN 3.9 GM/DL (3.2-5.2); ALBUMIN/GLOBULIN RATIO 1.39 (1.00-1.93); ALKALINE PHOSPHATASE 95 U/L (45-117); ALT/SGPT 22 U/L (12-78); ANION GAP 11 MEQ/L (8-16); AST/SGOT 16 U/L (15-37); BILIRUBIN,TOTAL 0.5 MG/DL (0.2-1.0); BLOOD UREA NITROGEN 17 MG/DL (7-18); CALCIUM LEVEL 9.2 MG/DL (8.8-10.2); CARBON DIOXIDE LEVEL 29 MEQ/L (21-32); CHLORIDE LEVEL 100 MEQ/L (98-107); CREATININE FOR GFR 0.69 MG/DL (0.55-1.02); GLOMERULAR FILTRATION RATE > 60.0 (>45); GLUCOSE, FASTING 163 MG/DL (80-110); POTASSIUM SERUM 4.1 MEQ/L (3.5-5.1); SODIUM LEVEL 140 MEQ/L (136-145); TOTAL PROTEIN 6.7 GM/DL (6.4-8.2)
[2016-11-28 19:14] LABS: FOLATE > 24.0 NG/ML; VITAMIN B12 LEVEL 163 PG/ML
== END ==
LOC: M LAB 16:06
PROVIDERS: ATTEND Internal Medicine Gastroenterology
DX: K50.012 Crohn's disease of small intestine with intestinal obstruction (principal); K56.69 Other intestinal obstruction

== ENCOUNTER → 2016-12-19 | Outpatient (REF) | payer OTHER | LOC: M LAB REF 09:04 | PROVIDERS: ATTEND Internal Medicine Gastroenterology | DX: K50.012 Crohn's disease of small intestine with intestinal obstruction (principal) ==

== ENCOUNTER → 2017-01-02 | Outpatient (CLI) | payer OTHER | LOC: M LAB 11:23 | PROVIDERS: ATTEND Internal Medicine Gastroenterology | DX: K50.012 Crohn's disease of small intestine with intestinal obstruction (principal) ==

== ENCOUNTER → 2017-02-03 | Outpatient (CLI) | payer OTHER ==
[~2017-02-03] VITALS: Ht 144.8 cm; Wt 71.2 kg
[~2017-02-03] MED LIST changes: +LIDOCAINE 2% INJ 100 MG/5 ML SDV (FOR ANES.) As Ordered ONE; +NS 1,000 ML IV SCH; +PROPOFOL 200 MG/20 ML VIAL As Ordered ONE; +[UNRECOGNIZED DRUG - CODE] PO
[2017-02-03 11:40] VITALS: BP 147/78
== END | disposition home or self-care (01) ==
LOC: M OPP 08:46
PROVIDERS: ATTEND Internal Medicine Gastroenterology
DX: R93.3 Abnormal findings on diagnostic imaging of other parts of digestive tract (principal); K63.89 Other specified diseases of intestine; K64.8 Other hemorrhoids; K57.30 Diverticulosis of large intestine without perforation or abscess without bleeding; K50.00 Crohn's disease of small intestine without complications; L90.5 Scar conditions and fibrosis of skin; I10 Essential (primary) hypertension; E11.9 Type 2 diabetes mellitus without complications; K57.92 Diverticulitis of intestine, part unspecified, without perforation or abscess without bleeding; D64.9 Anemia, unspecified; M19.90 Unspecified osteoarthritis, unspecified site; Z78.0 Asymptomatic menopausal state; Z87.19 Personal history of other diseases of the digestive system; Z87.442 Personal history of urinary calculi; Z88.1 Allergy status to other antibiotic agents; Z88.8 Allergy status to other drugs, medicaments and biological substances; Z91.018 Allergy to other foods; Z79.899 Other long term (current) drug therapy; Z80.8 Family history of malignant neoplasm of other organs or systems; Z80.0 Family history of malignant neoplasm of digestive organs; Z80.3 Family history of malignant neoplasm of breast

== ENCOUNTER → 2017-02-19 | Outpatient (CLI) | payer OTHER ==
[~2017-02-19] MED LIST changes: +AMLO25TA PO; +FERR1TAB8 PO; -FERR325T PO; +KEFL500C17 PO; -KEFL500C7 PO; -LIDOCAINE 2% INJ 100 MG/5 ML SDV (FOR ANES.) As Ordered ONE; -MELO7.5T6 PO; +MELO7.5T7 PO; -METF1000 PO; +METF10004 PO; +NORCOTAB PO; -NS 1,000 ML IV SCH; +PERC5TAB12 PO; -PERC5TAB6 PO; -PROPOFOL 200 MG/20 ML VIAL As Ordered ONE; +VITA200038 PO; +ZOFR4TAB3 PO
[2017-02-19 08:37] LABS: BASO % 0.3 % (0.0-1.0); EOS # 0.2 K/mm3 (0.0-0.50); EOS % 2.6 % (0.0-3.0); LARGE UNSTAINED CELL # 0.2 K/mm3 (0.0-0.4); LARGE UNSTAINED CELL % 2.3 % (0.0-4.0); LYMPH # 1.2 K/mm3 (1.5-4.5); LYMPH % 12.5 % (24.0-44.0); MEAN CORPUSCULAR HEMOGLOBIN 31.4 pg (27.0-33.0); MEAN CORPUSCULAR HGB CONC 34.3 g/dl (32.0-36.5); MEAN CORPUSCULAR VOLUME 91.6 fl (80.0-96.0); MONO # 0.4 K/mm3 (0.0-0.8); MONO % 4.6 % (0.0-5.0); NEUTROPHILS # 6.3 K/mm3 (1.8-7.7); NEUTROPHILS % 77.6 % (36.0-66.0); PLATELET COUNT, AUTOMATED 294 k/mm3 (150-450); RED CELL DISTRIBUTION WIDTH 14.8 % (11.5-14.5); WHITE BLOOD COUNT 8.1 K/mm3 (4.0-10.0)
[2017-02-19 09:50] LABS: ALBUMIN 3.9 GM/DL (3.2-5.2); ALBUMIN/GLOBULIN RATIO 1.44 (1.00-1.93); ALKALINE PHOSPHATASE 88 U/L (45-117); ALT/SGPT 30 U/L (12-78); ANION GAP 11 MEQ/L (8-16); AST/SGOT 23 U/L (15-37); BILIRUBIN,TOTAL 0.5 MG/DL (0.2-1.0); BLOOD UREA NITROGEN 16 MG/DL (7-18); CALCIUM LEVEL 9.4 MG/DL (8.8-10.2); CARBON DIOXIDE LEVEL 29 MEQ/L (21-32); CHLORIDE LEVEL 104 MEQ/L (98-107); CREATININE FOR GFR 0.69 MG/DL (0.55-1.02); GLOMERULAR FILTRATION RATE > 60.0 (>45); GLUCOSE, FASTING 129 MG/DL (80-110); POTASSIUM SERUM 4.4 MEQ/L (3.5-5.1); SODIUM LEVEL 144 MEQ/L (136-145); TOTAL PROTEIN 6.6 GM/DL (6.4-8.2)
== END ==
LOC: M LAB 07:45
PROVIDERS: ATTEND Family Medicine
DX: E11.9 Type 2 diabetes mellitus without complications (principal)

== ENCOUNTER → 2017-03-21 | Outpatient (CLI) | payer OTHER ==
[2017-03-21 16:06] LABS: BASO % 0.6 % (0.0-1.0); EOS # 0.1 K/mm3 (0.0-0.50); EOS % 1.3 % (0.0-3.0); LARGE UNSTAINED CELL # 0.2 K/mm3 (0.0-0.4); LARGE UNSTAINED CELL % 3.4 % (0.0-4.0); LYMPH # 1.5 K/mm3 (1.5-4.5); LYMPH % 19.3 % (24.0-44.0); MEAN CORPUSCULAR HEMOGLOBIN 30.8 pg (27.0-33.0); MEAN CORPUSCULAR HGB CONC 34.7 g/dl (32.0-36.5); MEAN CORPUSCULAR VOLUME 88.8 fl (80.0-96.0); MONO # 0.3 K/mm3 (0.0-0.8); MONO % 5.1 % (0.0-5.0); NEUTROPHILS # 4.7 K/mm3 (1.8-7.7); NEUTROPHILS % 70.4 % (36.0-66.0); PLATELET COUNT, AUTOMATED 268 k/mm3 (150-450); RED CELL DISTRIBUTION WIDTH 14.7 % (11.5-14.5); WHITE BLOOD COUNT 6.6 K/mm3 (4.0-10.0)
[2017-03-21 16:56] LABS: ALBUMIN 3.9 GM/DL (3.2-5.2); ALBUMIN/GLOBULIN RATIO 1.44 (1.00-1.93); ALKALINE PHOSPHATASE 79 U/L (45-117); ALT/SGPT 30 U/L (12-78); ANION GAP 11 MEQ/L (8-16); AST/SGOT 20 U/L (15-37); BILIRUBIN,TOTAL 0.7 MG/DL (0.2-1.0); BLOOD UREA NITROGEN 15 MG/DL (7-18); CALCIUM LEVEL 9.6 MG/DL (8.8-10.2); CARBON DIOXIDE LEVEL 29 MEQ/L (21-32); CHLORIDE LEVEL 102 MEQ/L (98-107); CREATININE FOR GFR 0.66 MG/DL (0.55-1.02); GLOMERULAR FILTRATION RATE > 60.0 (>45); GLUCOSE, FASTING 113 MG/DL (80-110); SODIUM LEVEL 142 MEQ/L (136-145); TOTAL PROTEIN 6.6 GM/DL (6.4-8.2)
[2017-04-16 14:07] LABS: THIOP1 SEE SEPARATE REPORT; THIOP2 SEE SEPARATE REPORT
== END ==
LOC: M LAB 15:15
PROVIDERS: ATTEND Internal Medicine Gastroenterology
DX: K50.00 Crohn's disease of small intestine without complications (principal)

== ENCOUNTER 2017-04-12 19:59 | Emergency (ER) | payer OTHER ==
[~2017-04-12] VITALS: Ht 144.8 cm; Wt 72.7 kg
[~2017-04-12 19:59] MED LIST changes: -AMLO25TA PO; -NORCOTAB PO; -VITA200038 PO; -ZOFR4TAB3 PO
[2017-04-12] MEDS ORDERED: AMLO25TA PO (20:18)
[2017-04-12] MEDS ORDERED: VITA200038 PO (20:18)
[2017-04-12] MEDS ORDERED: NS 500 ML IV ONE (20:30)
[2017-04-12] MEDS ORDERED: ONDANSETRON 4MG/2ML VIAL (J2405) IV ONE (20:30)
[2017-04-12] MEDS: MORPHINE 4 MG/ML 1ML SYRINGE IV PRN ×2 (20:43→21:02)
[2017-04-12 20:51] LABS: BASO % 0.3 % (0.0-1.0); EOS # 0.1 K/mm3 (0.0-0.50); EOS % 0.9 % (0.0-3.0); LARGE UNSTAINED CELL # 0.2 K/mm3 (0.0-0.4); LARGE UNSTAINED CELL % 1.9 % (0.0-4.0); LYMPH # 1.2 K/mm3 (1.5-4.5); LYMPH % 10.5 % (24.0-44.0); MEAN CORPUSCULAR HGB CONC 34.2 g/dl (32.0-36.5); MEAN CORPUSCULAR VOLUME 90.6 fl (80.0-96.0); MONO # 0.5 K/mm3 (0.0-0.8); MONO % 4.7 % (0.0-5.0); NEUTROPHILS # 8.1 K/mm3 (1.8-7.7); NEUTROPHILS % 81.7 % (36.0-66.0); PLATELET COUNT, AUTOMATED 324 k/mm3 (150-450); WHITE BLOOD COUNT 9.9 K/mm3 (4.0-10.0)
[2017-04-12] MEDS ORDERED: methylPREDNISolone INJ 125 MG/2 ML VIAL (J2930) IV ONE (21:15)
[2017-04-12] MEDS ORDERED: GASTROGRAFIN SOLUTION 30ML (Q9963) PO ONE ×2 (21:15→21:45)
[2017-04-12 21:21] LABS: ALBUMIN 4.2 GM/DL (3.2-5.2); ALBUMIN/GLOBULIN RATIO 1.24 (1.00-1.93); ALKALINE PHOSPHATASE 87 U/L (45-117); ALT/SGPT 30 U/L (12-78); ANION GAP 14 MEQ/L (8-16); AST/SGOT 36 U/L (15-37); BILIRUBIN,DIRECT 0.2 MG/DL (0.0-0.2); BILIRUBIN,TOTAL 0.6 MG/DL (0.2-1.0); BLOOD UREA NITROGEN 16 MG/DL (7-18); CALCIUM LEVEL 9.4 MG/DL (8.8-10.2); CARBON DIOXIDE LEVEL 24 MEQ/L (21-32); CHLORIDE LEVEL 100 MEQ/L (98-107); CREATININE FOR GFR 0.75 MG/DL (0.55-1.02); GLOMERULAR FILTRATION RATE > 60.0 (>45); GLUCOSE, FASTING 174 MG/DL (80-110); POTASSIUM SERUM 4.1 MEQ/L (3.5-5.1); SODIUM LEVEL 138 MEQ/L (136-145); TOTAL PROTEIN 7.6 GM/DL (6.4-8.2)
[2017-04-12] MEDS ORDERED: ISOVUE-370 76% 100ML VIAL (Q9967) As Ordered ONE (21:25)
[2017-04-12] MEDS ORDERED: MORPHINE 4 MG/ML 1ML SYRINGE As Ordered ONE (23:17)
--- NOTE | 2017-04-12 23:20 | REPUSA ---
CT of the abdomen and pelvis with contrast Clinical statement: Pain. Technique: Multiple axial CT images were obtained from the base of the lungs through the floor of the pelvis utilizing 5 mm axial slices after administration of oral and nonionic intravenous contrast. C oronal and sagittal reconstructions were also obtained. Comparison: 09/10/2016. Findings: Chest: The visualized lung bases are clear. Abdomen: The spleen, pancreas, kidneys, gallbladder, and adrenal glands are unremarkable. There is mi ld diffuse low attenuation of the hepatic parenchyma. No focal hepatic masses are seen. The aorta is within normal limits. There is no evidence of abdominal lymphadenopathy or ascites. Pelvis: The bowel is unremarkable, with no obstructive or inflammatory changes. There is mild left-si ded diverticulosis. The appendix is unremarkable. The urinary bladder is within normal limits. The ot her pelvic structures appear grossly intact. There is no evidence of pelvic lymphadenopathy or ascite s. Bones: There are no suspicious osseous abnormalities seen. Impression: 1. No obstructive or inflammatory bowel changes. The small bowel obstruction seen on the prior study has resolved. Mild left-sided diverticulosis. 2. Mild fatty infiltration of the liver.
[2017-04-13] MEDS ORDERED: MORPHINE 4 MG/ML 1ML SYRINGE IV ONE
[2017-04-13 00:28] VITALS: BP 148/76
[2017-04-13] MEDS ORDERED: PERC5TAB12 PO (00:28)
[2017-04-13] MEDS ORDERED: OXYCODONE/APAP 5MG/325MG(BULK FOR ED) 1 TABLET PO ONE (00:30)
== END 2017-04-13 00:48 | disposition home or self-care (01) ==
LOC: M ED 19:59
DX: R10.84 Generalized abdominal pain (principal); K50.90 Crohn's disease, unspecified, without complications; E11.9 Type 2 diabetes mellitus without complications; I10 Essential (primary) hypertension
CPT/HCPCS: 74177; 80048; 80076; 83690; 85025; 96361; 96374; 96375; 96376; 99283; J2405; J2930; Q9963; Q9967

== ENCOUNTER 2017-04-16 11:23 | Emergency (ER) | payer OTHER ==
[~2017-04-16] VITALS: Ht 144.8 cm; Wt 72.7 kg
[~2017-04-16 11:23] MED LIST changes: +AMLO25TA PO; +VITA200038 PO
[2017-04-16] MEDS ORDERED: ONDANSETRON 4MG/2ML VIAL (J2405) IV ONE (12:00)
[2017-04-16] MEDS ORDERED: NS 1,000 ML IV ONE (12:00)
[2017-04-16] MEDS ORDERED: PANTOPRAZOLE 40MG INJ (PROTONIX) (C9113) IV ONE (12:00)
[2017-04-16] MEDS ORDERED: GASTROGRAFIN SOLUTION 30ML PO ONE (12:10)
[2017-04-16] MEDS: MORPHINE 4 MG/ML 1ML SYRINGE IV PRN ×2 (12:13→13:03)
[2017-04-16 12:28] LABS: BASO % 0.5 % (0.0-1.0); EOS # 0.1 K/mm3 (0.0-0.50); EOS % 1.1 % (0.0-3.0); LARGE UNSTAINED CELL # 0.1 K/mm3 (0.0-0.4); LARGE UNSTAINED CELL % 2.3 % (0.0-4.0); LYMPH # 1.3 K/mm3 (1.5-4.5); LYMPH % 18.5 % (24.0-44.0); MEAN CORPUSCULAR HGB CONC 35.1 g/dl (32.0-36.5); MEAN CORPUSCULAR VOLUME 88.1 fl (80.0-96.0); MONO # 0.3 K/mm3 (0.0-0.8); MONO % 4.3 % (0.0-5.0); NEUTROPHILS # 4.4 K/mm3 (1.8-7.7); NEUTROPHILS % 73.4 % (36.0-66.0); PLATELET COUNT, AUTOMATED 302 k/mm3 (150-450); RED CELL DISTRIBUTION WIDTH 14.7 % (11.5-14.5)
[2017-04-16 12:39] LABS: INR 0.89
[2017-04-16] MEDS ORDERED: GASTROGRAFIN SOLUTION 30ML (Q9963) PO ONE (12:40)
[2017-04-16 13:07] LABS: ALBUMIN/GLOBULIN RATIO 1.43 (1.00-1.93); ALKALINE PHOSPHATASE 66 U/L (45-117); ALT/SGPT 49 U/L (12-78); AMYLASE 26 U/L (25-115); ANION GAP 11 MEQ/L (8-16); AST/SGOT 48 U/L (15-37); BILIRUBIN,DIRECT 0.2 MG/DL (0.0-0.2); BILIRUBIN,TOTAL 0.6 MG/DL (0.2-1.0); BLOOD UREA NITROGEN 14 MG/DL (7-18); CALCIUM LEVEL 9.1 MG/DL (8.8-10.2); CARBON DIOXIDE LEVEL 29 MEQ/L (21-32); CHLORIDE LEVEL 99 MEQ/L (98-107); CREATININE FOR GFR 0.76 MG/DL (0.55-1.02); GLOMERULAR FILTRATION RATE > 60.0 (>45); GLUCOSE, FASTING 143 MG/DL (80-110); POTASSIUM SERUM 4.5 MEQ/L (3.5-5.1); SODIUM LEVEL 139 MEQ/L (136-145); TOTAL PROTEIN 6.8 GM/DL (6.4-8.2)
[2017-04-16] MEDS ORDERED: ISOVUE-370 76% 100ML VIAL (Q9967) As Ordered ONE (13:24)
--- NOTE | 2017-04-16 14:03 | REP ---
CT ABDOMEN PELVIS WITH IV AND ORAL CONTRAST: HISTORY: Abdominal pain. History of Crohn's disease. Comparison CT study April [address] CONTRAST DOSE: 100 mL of intravenous Isovue 370. CT FINDINGS: Preliminary digital thermocouple tester radiograph is unremarkable. A normal bowel gas pattern is seen. The lung bases remain clear. Fatty infiltration is again noted in the liver. No focal liver lesion is seen. The gallbladder is mildly distended, 8.5 cm in greatest dimension. It is homogeneous. No wall thickening or pericholecystic fluid is seen. No biliary ductal dilation is evident. Pancreas is unremarkable. The spleen is homogeneous and normal in size. No adrenal lesion is seen. There are intrarenal calculi bilaterally. There are three intrarenal calculi in the right kidney the largest of which is in the lower pole measuring 7 mm in greatest diameter. There is one in the upper and two in the lower pole of the right kidney. Multiple intrarenal calculi are noted on the left the largest of which is at the mid pole level measuring 5 mm in greatest diameter. No hydronephrosis is seen on either side. No ureteral stone is appreciated on either side. No bladder calculus is seen. No uterine or ovarian abnormality is observed. There is left colonic diverticulosis without CT evidence of diverticulitis. Scattered diverticular changes are seen in the transverse segment of the colon and a normal appendix is seen. Small bowel loops are unremarkable. There is no CT evidence of active Crohn's disease. No abdominal wall defect is seen. Bone window settings show no bony destructive lesion. IMPRESSION: 1. Mild diffuse fatty infiltration of the liver. 2. Mildly distended gallbladder with no other gallbladder abnormality seen by CT 3. Bilateral intrarenal calculi without evidence of hydronephrosis. No ureteral calculus. 4. Left colonic diverticulosis without CT evidence of diverticulitis. 5. No other significant finding. Signed by Ruddy Westfall MD 04/16/2017 05:03 P
[2017-04-16] MEDS ORDERED: ZOFR4TAB3 PO (14:22)
[2017-04-16] MEDS ORDERED: NORCOTAB PO (14:22)
[2017-04-16 14:38] VITALS: BP 133/68
== END 2017-04-16 14:54 | disposition home or self-care (01) ==
LOC: M ED 11:23
DX: R10.9 Unspecified abdominal pain (principal); I10 Essential (primary) hypertension; E11.9 Type 2 diabetes mellitus without complications; K50.90 Crohn's disease, unspecified, without complications
CPT/HCPCS: 36415; 74177; 80048; 80076; 81001; 82150; 83690; 85025; 85610; 87086; 96361; 96374; 96375; 99284; C9113; J2405; Q9963; Q9967

== ENCOUNTER → 2017-06-27 | Outpatient (CLI) | payer OTHER ==
[~2017-06-27] MED LIST changes: +NORCOTAB PO; +ZOFR4TAB3 PO
[2017-06-27 15:44] LABS: ALBUMIN/GLOBULIN RATIO 1.11 (1.00-1.93); ALKALINE PHOSPHATASE 79 U/L (45-117); ALT/SGPT 22 U/L (12-78); ANION GAP 6 MEQ/L (8-16); AST/SGOT 12 U/L (7-37); BILIRUBIN,TOTAL 0.9 MG/DL (0.2-1.0); BLOOD UREA NITROGEN 24 MG/DL (7-18); CALCIUM LEVEL 10.1 MG/DL (8.8-10.2); CARBON DIOXIDE LEVEL 31 MEQ/L (21-32); CHLORIDE LEVEL 100 MEQ/L (98-107); CREATININE FOR GFR 1.12 MG/DL (0.55-1.02); GLOMERULAR FILTRATION RATE 52.3 (>45); GLUCOSE, FASTING 211 MG/DL (80-110); POTASSIUM SERUM 4.3 MEQ/L (3.5-5.1); SODIUM LEVEL 137 MEQ/L (136-145); TOTAL PROTEIN 7.6 GM/DL (6.4-8.2)
[2017-06-27 15:54] LABS: BASO % 0.2 % (0.0-1.0); IMMATURE GRANULOCYTE % 0.8 % (0-0); LYMPH # 0.8 10^3/uL (1.5-4.5); MEAN CORPUSCULAR HEMOGLOBIN 30.8 pg (27.0-33.0); MEAN CORPUSCULAR HGB CONC 33.3 g/dl (32.0-36.5); MEAN CORPUSCULAR VOLUME 92.4 fl (80.0-96.0); MONO # 0.5 10^3/uL (0.0-0.8); MONO % 5.5 % (0.0-5.0); NEUTROPHILS % 85.5 % (36.0-66.0); PLATELET COUNT, AUTOMATED 329 10^3/uL (150-450); RED CELL DISTRIBUTION WIDTH 14.3 % (11.5-14.5); WHITE BLOOD COUNT 9.3 10^3/uL (4.0-10.0)
[2017-06-30 10:46] LABS: VITAMIN B12 LEVEL 160 PG/ML
[2017-06-30 10:47] LABS: FOLATE > 24.0 NG/ML
== END ==
LOC: M LAB 14:39
PROVIDERS: ATTEND Internal Medicine Gastroenterology
DX: K50.00 Crohn's disease of small intestine without complications (principal)

== ENCOUNTER → 2017-08-14 | Outpatient (CLI) | payer OTHER ==
[2017-08-14 15:57] LABS: BASO % 0.7 % (0.0-1.0); EOS # 0.1 10^3/uL (0.0-0.50); EOS % 2.5 % (0.0-3.0); IMMATURE GRANULOCYTE % 0.4 % (0-0); LYMPH # 1.1 10^3/uL (1.5-4.5); LYMPH % 20.4 % (24.0-44.0); MEAN CORPUSCULAR HEMOGLOBIN 31.3 pg (27.0-33.0); MEAN CORPUSCULAR HGB CONC 34.7 g/dl (32.0-36.5); MEAN CORPUSCULAR VOLUME 90.4 fl (80.0-96.0); MONO # 0.5 10^3/uL (0.0-0.8); MONO % 9.5 % (0.0-5.0); NEUTROPHILS # 3.7 10^3/uL (1.8-7.7); NEUTROPHILS % 66.5 % (36.0-66.0); PLATELET COUNT, AUTOMATED 286 10^3/uL (150-450); WHITE BLOOD COUNT 5.6 10^3/uL (4.0-10.0)
[2017-08-14 16:31] LABS: ALBUMIN/GLOBULIN RATIO 1.48 (1.00-1.93); ALKALINE PHOSPHATASE 85 U/L (45-117); ALT/SGPT 33 U/L (12-78); ANION GAP 8 MEQ/L (8-16); AST/SGOT 28 U/L (7-37); BILIRUBIN,TOTAL 0.6 MG/DL (0.2-1.0); BLOOD UREA NITROGEN 18 MG/DL (7-18); CARBON DIOXIDE LEVEL 30 MEQ/L (21-32); CHLORIDE LEVEL 103 MEQ/L (98-107); CREATININE FOR GFR 0.67 MG/DL (0.55-1.02); GLOMERULAR FILTRATION RATE > 60.0 (>45); GLUCOSE, FASTING 122 MG/DL (80-110); SODIUM LEVEL 141 MEQ/L (136-145); TOTAL PROTEIN 6.7 GM/DL (6.4-8.2)
[2017-08-14 16:38] LABS: VITAMIN B12 LEVEL 441 PG/ML
== END ==
LOC: M LAB 15:15
DX: K50.00 Crohn's disease of small intestine without complications (principal)
CPT/HCPCS: 82746

== ENCOUNTER 2017-09-03 15:50 | Inpatient (IN) | payer OTHER ==
[2017-09-03 17:07] LABS: KETONE, URINE AUTO RFX TRACE mg/dL (NEGATIVE); LEUKOCYTE ESTERASE UR AUTO RFX NEGATIVE (NEGATIVE); NITRITE, URINE AUTO RFX NEGATIVE (NEGATIVE); RBC, URINE AUTO RFX 2 /HPF (0-3); SPECIFIC GRAVITY UR AUTO RFX 1.013 (1.002-1.035); SQUAM EPITHELIAL CELL UR AURFX 0 /HPF (0-6); WBC, URINE AUTO RFX 1 /HPF (0-3)
[2017-09-03 17:09] LABS: BASO % 0.5 % (0.0-1.0); EOS # 0.1 10^3/uL (0.0-0.50); EOS % 0.8 % (0.0-3.0); HEMATOCRIT 34.7 % (36.0-47.0); HEMOGLOBIN 12.1 g/dl (12.0-16.0); IMMATURE GRANULOCYTE # 0.1 10^3/uL (0-0); IMMATURE GRANULOCYTE % 0.7 % (0-0); LYMPH # 0.6 10^3/uL (1.5-4.5); LYMPH % 7.6 % (24.0-44.0); MEAN CORPUSCULAR HEMOGLOBIN 31.2 pg (27.0-33.0); MEAN CORPUSCULAR HGB CONC 34.9 g/dl (32.0-36.5); MEAN CORPUSCULAR VOLUME 89.4 fl (80.0-96.0); MONO # 0.5 10^3/uL (0.0-0.8); MONO % 5.7 % (0.0-5.0); NEUTROPHILS # 7.1 10^3/uL (1.8-7.7); NEUTROPHILS % 84.7 % (36.0-66.0); PLATELET COUNT, AUTOMATED 276 10^3/uL (150-450); RED BLOOD COUNT 3.88 10^6/uL (4.00-5.40); RED CELL DISTRIBUTION WIDTH 14.1 % (11.5-14.5); WHITE BLOOD COUNT 8.4 10^3/uL (4.0-10.0)
[2017-09-03 17:15] LABS: INR 0.88
[2017-09-03 17:16] LABS: PARTIAL THROMBOPLASTIN TIME 24.1 SECONDS (26.8-37.9)
[2017-09-03] MEDS: ONDANSETRON 4MG/2ML VIAL (J2405) IV (17:17)
[2017-09-03] MEDS: MORPHINE 4 MG/ML 1ML SYRINGE IV ×2 (17:17→19:15)
[2017-09-03] MEDS: NS 1,000 ML IV ×2 (17:17→23:01)
[2017-09-03 17:25] LABS: ALBUMIN 3.8 GM/DL (3.2-5.2); ALBUMIN/GLOBULIN RATIO 1.09 (1.00-1.93); ALKALINE PHOSPHATASE 73 U/L (45-117); ALT/SGPT 26 U/L (12-78); AMYLASE 41 U/L (25-115); ANION GAP 12 MEQ/L (8-16); AST/SGOT 22 U/L (7-37); BILIRUBIN,DIRECT 0.2 MG/DL (0.0-0.2); BLOOD UREA NITROGEN 17 MG/DL (7-18); CALCIUM LEVEL 9.1 MG/DL (8.8-10.2); CARBON DIOXIDE LEVEL 25 MEQ/L (21-32); CHLORIDE LEVEL 102 MEQ/L (98-107); CK-MB VALUE MASS 2.4 NG/ML (0.0-3.6); CPK CREATINE PHOSPHOKINASE 50 U/L (26-192); CREATININE FOR GFR 0.75 MG/DL (0.55-1.02); GLOMERULAR FILTRATION RATE > 60.0 (>45); GLUCOSE, FASTING 201 MG/DL (80-110); LIPASE 121 U/L (73-393); POTASSIUM SERUM 3.7 MEQ/L (3.5-5.1); SODIUM LEVEL 139 MEQ/L (136-145); TOTAL PROTEIN 7.3 GM/DL (6.4-8.2); TROPONIN I < 0.02 NG/ML (< 0.10)
[2017-09-03 17:29] LABS: LACTIC ACID SEPSIS PROTOCOL 6.1 MMOL/L (0.4-2.0)
[2017-09-03] MEDS: NS 2,180 ML in APPROPRIATE DILUENT 1 EA IV (17:58)
[2017-09-03] MEDS ORDERED: ISOVUE-370 76% 100ML VIAL (Q9967) As Ordered (18:31)
[2017-09-03] MEDS ORDERED: GLUCOSE 4 GM CHEW TABLET PO (22:45)
[2017-09-03] MEDS ORDERED: GLUCAGON FOR INJ 1 MG VIAL (J1610) SC (22:45)
[2017-09-03] MEDS: FERROUS SULFATE 325MG TAB PO (23:01)
[2017-09-03] MEDS: GABAPENTIN 300 MG CAP PO (23:01)
[2017-09-04 00:17] LABS: BEDSIDE GLUCOSE 131 MG/DL (80-115)
[2017-09-04] MEDS: HumaLOG INSULIN (NovoLOG) PER UNIT SC ×5 (00:22→17:31)
[2017-09-04] MEDS: MORPHINE 2 MG/ML 1ML SYRINGE IV ×4 (00:23→15:02)
[2017-09-04] MEDS: ONDANSETRON 4MG/2ML VIAL (J2405) IV ×4 (03:11→21:24)
[2017-09-04] MEDS: PERCOCET 5MG/325MG TAB PO ×5 (03:12→21:20)
[2017-09-04 06:11] LABS: BEDSIDE GLUCOSE 128 MG/DL (80-115)
[2017-09-04 06:59] LABS: BASO % 0.4 % (0.0-1.0); EOS # 0.1 10^3/uL (0.0-0.50); EOS % 1.2 % (0.0-3.0); HEMATOCRIT 28.1 % (36.0-47.0); IMMATURE GRANULOCYTE % 0.4 % (0-0); LYMPH % 16.8 % (24.0-44.0); MEAN CORPUSCULAR HEMOGLOBIN 31.1 pg (27.0-33.0); MEAN CORPUSCULAR HGB CONC 33.8 g/dl (32.0-36.5); MEAN CORPUSCULAR VOLUME 92.1 fl (80.0-96.0); MONO # 0.4 10^3/uL (0.0-0.8); MONO % 7.4 % (0.0-5.0); NEUTROPHILS # 4.2 10^3/uL (1.8-7.7); NEUTROPHILS % 73.8 % (36.0-66.0); PLATELET COUNT, AUTOMATED 209 10^3/uL (150-450); RED BLOOD COUNT 3.05 10^6/uL (4.00-5.40); RED CELL DISTRIBUTION WIDTH 14.6 % (11.5-14.5); WHITE BLOOD COUNT 5.7 10^3/uL (4.0-10.0)
[2017-09-04 07:09] LABS: HEMOGLOBIN 9.5 g/dl (12.0-16.0)
[2017-09-04 07:23] LABS: ANION GAP 8 MEQ/L (8-16); BLOOD UREA NITROGEN 13 MG/DL (7-18); CALCIUM LEVEL 7.6 MG/DL (8.8-10.2); CARBON DIOXIDE LEVEL 28 MEQ/L (21-32); CHLORIDE LEVEL 106 MEQ/L (98-107); CREATININE FOR GFR 0.61 MG/DL (0.55-1.02); GLOMERULAR FILTRATION RATE > 60.0 (>45); GLUCOSE, FASTING 141 MG/DL (80-110); POTASSIUM SERUM 3.6 MEQ/L (3.5-5.1); SODIUM LEVEL 142 MEQ/L (136-145)
[2017-09-04] MEDS: ENOXAPARIN 40 MG/0.4 ML SYRINGE (J1650) SC (08:19)
[2017-09-04] MEDS: NS 1,000 ML IV ×2 (08:19→17:31)
[2017-09-04] MEDS: ENALAPRIL MALEATE 10 MG TAB PO (08:19)
[2017-09-04] MEDS: GABAPENTIN 300 MG CAP PO ×3 (08:20→21:20)
[2017-09-04] MEDS: PANTOPRAZOLE 40MG TAB (PROTONIX) PO (08:20)
[2017-09-04] MEDS: FERROUS SULFATE 325MG TAB PO ×2 (08:20→21:19)
[2017-09-04] MEDS: VITAMIN D 1,000 INTERNATIONAL UNITS TABLET PO (08:20)
[2017-09-04] MEDS: CYANOCOBALAMIN 500 MCG TAB PO (08:21)
[2017-09-04] MEDS ORDERED: hydroCHLOROthiazide 25 MG TAB PO (09:00)
[2017-09-04 11:13] LABS: BEDSIDE GLUCOSE 129 MG/DL (80-115)
[2017-09-04 17:24] LABS: BEDSIDE GLUCOSE 113 MG/DL (80-115)
[2017-09-04] MEDS: ATORVASTATIN 10 MG TAB PO (21:18)
[2017-09-04] MEDS: AZATHIOPRINE 50 MG PO (21:20)
[2017-09-05 00:31] LABS: BEDSIDE GLUCOSE 98 MG/DL (80-115)
[2017-09-05] MEDS: NS 1,000 ML IV (03:08)
[2017-09-05] MEDS: PERCOCET 5MG/325MG TAB PO ×4 (03:09→16:59)
[2017-09-05] MEDS: MORPHINE 2 MG/ML 1ML SYRINGE IV ×4 (05:34→20:29)
[2017-09-05] MEDS: HumaLOG INSULIN (NovoLOG) PER UNIT SC ×4 (05:35→17:53)
[2017-09-05 05:51] LABS: BEDSIDE GLUCOSE 97 MG/DL (80-115)
[2017-09-05] MEDS: FERROUS SULFATE 325MG TAB PO ×2 (08:04→20:29)
[2017-09-05] MEDS: AZATHIOPRINE 50 MG PO ×2 (08:04→20:30)
[2017-09-05] MEDS: ENOXAPARIN 40 MG/0.4 ML SYRINGE (J1650) SC (08:04)
[2017-09-05] MEDS: VITAMIN D 1,000 INTERNATIONAL UNITS TABLET PO (08:04)
[2017-09-05] MEDS: CYANOCOBALAMIN 500 MCG TAB PO (08:05)
[2017-09-05] MEDS: ENALAPRIL MALEATE 10 MG TAB PO (08:05)
[2017-09-05] MEDS: PANTOPRAZOLE 40MG TAB (PROTONIX) PO (08:05)
[2017-09-05] MEDS: GABAPENTIN 300 MG CAP PO ×3 (08:05→20:29)
[2017-09-05 08:23] LABS: BASO % 0.4 % (0.0-1.0); EOS # 0.1 10^3/uL (0.0-0.50); EOS % 2.1 % (0.0-3.0); HEMATOCRIT 27.7 % (36.0-47.0); HEMOGLOBIN 9.3 g/dl (12.0-16.0); IMMATURE GRANULOCYTE % 0.4 % (0-0); LYMPH # 0.8 10^3/uL (1.5-4.5); LYMPH % 16.5 % (24.0-44.0); MEAN CORPUSCULAR HEMOGLOBIN 31.2 pg (27.0-33.0); MEAN CORPUSCULAR HGB CONC 33.6 g/dl (32.0-36.5); MONO # 0.4 10^3/uL (0.0-0.8); MONO % 7.5 % (0.0-5.0); NEUTROPHILS # 3.5 10^3/uL (1.8-7.7); NEUTROPHILS % 73.1 % (36.0-66.0); PLATELET COUNT, AUTOMATED 198 10^3/uL (150-450); RED BLOOD COUNT 2.98 10^6/uL (4.00-5.40); RED CELL DISTRIBUTION WIDTH 14.6 % (11.5-14.5); WHITE BLOOD COUNT 4.8 10^3/uL (4.0-10.0)
[2017-09-05 08:29] LABS: ALBUMIN 3.4 GM/DL (3.2-5.2); ALBUMIN/GLOBULIN RATIO 1.26 (1.00-1.93); ALKALINE PHOSPHATASE 50 U/L (45-117); ALT/SGPT 25 U/L (12-78); ANION GAP 5 MEQ/L (8-16); AST/SGOT 26 U/L (7-37); BILIRUBIN,TOTAL 0.6 MG/DL (0.2-1.0); BLOOD UREA NITROGEN 11 MG/DL (7-18); CALCIUM LEVEL 7.6 MG/DL (8.8-10.2); CARBON DIOXIDE LEVEL 29 MEQ/L (21-32); CHLORIDE LEVEL 107 MEQ/L (98-107); CREATININE FOR GFR 0.59 MG/DL (0.55-1.02); GLOMERULAR FILTRATION RATE > 60.0 (>45); GLUCOSE, FASTING 96 MG/DL (80-110); POTASSIUM SERUM 3.7 MEQ/L (3.5-5.1); SODIUM LEVEL 141 MEQ/L (136-145); TOTAL PROTEIN 6.1 GM/DL (6.4-8.2)
[2017-09-05 12:18] LABS: BEDSIDE GLUCOSE 85 MG/DL (80-115)
[2017-09-05] MEDS: DEXTROSE 50% 50 ML SYRINGE IV (12:24)
[2017-09-05] MEDS: D5W/0.9% SODIUM CHLORIDE 1,000 ML IV (12:35)
[2017-09-05 12:50] LABS: BEDSIDE GLUCOSE 127 MG/DL (80-115)
[2017-09-05] MEDS: ONDANSETRON 4MG/2ML VIAL (J2405) IV (16:59)
[2017-09-05 18:09] LABS: BEDSIDE GLUCOSE 99 MG/DL (80-115)
[2017-09-05] MEDS: ATORVASTATIN 10 MG TAB PO (20:29)
[2017-09-06] MEDS: PERCOCET 5MG/325MG TAB PO ×4 (01:47→19:54)
[2017-09-06 01:50] LABS: BEDSIDE GLUCOSE 143 MG/DL (80-115)
[2017-09-06] MEDS: D5W/0.9% SODIUM CHLORIDE 1,000 ML IV ×2 (04:38→20:57)
[2017-09-06] MEDS: HumaLOG INSULIN (NovoLOG) PER UNIT SC ×4 (06:00→17:30)
[2017-09-06 06:07] LABS: BEDSIDE GLUCOSE 115 MG/DL (80-115)
[2017-09-06 06:50] LABS: BASO % 0.4 % (0.0-1.0); EOS # 0.2 10^3/uL (0.0-0.50); EOS % 3.8 % (0.0-3.0); HEMATOCRIT 28.2 % (36.0-47.0); HEMOGLOBIN 9.7 g/dl (12.0-16.0); IMMATURE GRANULOCYTE % 0.6 % (0-0); LYMPH # 0.8 10^3/uL (1.5-4.5); LYMPH % 16.6 % (24.0-44.0); MEAN CORPUSCULAR HEMOGLOBIN 31.4 pg (27.0-33.0); MEAN CORPUSCULAR HGB CONC 34.4 g/dl (32.0-36.5); MEAN CORPUSCULAR VOLUME 91.3 fl (80.0-96.0); MONO # 0.4 10^3/uL (0.0-0.8); MONO % 9.3 % (0.0-5.0); NEUTROPHILS # 3.3 10^3/uL (1.8-7.7); NEUTROPHILS % 69.3 % (36.0-66.0); PLATELET COUNT, AUTOMATED 190 10^3/uL (150-450); RED BLOOD COUNT 3.09 10^6/uL (4.00-5.40); RED CELL DISTRIBUTION WIDTH 14.1 % (11.5-14.5); WHITE BLOOD COUNT 4.8 10^3/uL (4.0-10.0)
[2017-09-06 07:08] LABS: ANION GAP 7 MEQ/L (8-16); BLOOD UREA NITROGEN 7 MG/DL (7-18); CALCIUM LEVEL 7.8 MG/DL (8.8-10.2); CARBON DIOXIDE LEVEL 28 MEQ/L (21-32); CHLORIDE LEVEL 106 MEQ/L (98-107); CREATININE FOR GFR 0.57 MG/DL (0.55-1.02); GLOMERULAR FILTRATION RATE > 60.0 (>45); GLUCOSE, FASTING 113 MG/DL (80-110); POTASSIUM SERUM 3.5 MEQ/L (3.5-5.1); SODIUM LEVEL 141 MEQ/L (136-145)
[2017-09-06] MEDS: ENOXAPARIN 40 MG/0.4 ML SYRINGE (J1650) SC (08:55)
[2017-09-06] MEDS: ENALAPRIL MALEATE 10 MG TAB PO (08:55)
[2017-09-06] MEDS: GABAPENTIN 300 MG CAP PO ×3 (08:56→20:57)
[2017-09-06] MEDS: PANTOPRAZOLE 40MG TAB (PROTONIX) PO (08:56)
[2017-09-06] MEDS: AZATHIOPRINE 50 MG PO ×2 (08:56→21:03)
[2017-09-06] MEDS: CYANOCOBALAMIN 500 MCG TAB PO (08:56)
[2017-09-06] MEDS: VITAMIN D 1,000 INTERNATIONAL UNITS TABLET PO (08:56)
[2017-09-06] MEDS: FERROUS SULFATE 325MG TAB PO ×2 (08:56→20:57)
[2017-09-06] MEDS: MORPHINE 2 MG/ML 1ML SYRINGE IV ×2 (09:09→16:08)
[2017-09-06] MEDS: ACETAMINOPHEN TAB 650MG DOSE (2X325MG) PO (10:52)
[2017-09-06] MEDS: ONDANSETRON 4MG/2ML VIAL (J2405) IV (10:52)
[2017-09-06 11:59] LABS: BEDSIDE GLUCOSE 132 MG/DL (80-115)
[2017-09-06 17:33] LABS: BEDSIDE GLUCOSE 114 MG/DL (80-115)
[2017-09-06] MEDS: ATORVASTATIN 10 MG TAB PO (20:57)
[2017-09-07 00:26] LABS: BEDSIDE GLUCOSE 135 MG/DL (80-115)
[2017-09-07] MEDS: PERCOCET 5MG/325MG TAB PO ×5 (00:44→23:31)
[2017-09-07 05:28] LABS: BEDSIDE GLUCOSE 128 MG/DL (80-115)
[2017-09-07] MEDS: HumaLOG INSULIN (NovoLOG) PER UNIT SC ×4 (05:46→17:43)
[2017-09-07 06:56] LABS: BASO % 0.3 % (0.0-1.0); EOS # 0.2 10^3/uL (0.0-0.50); EOS % 3.8 % (0.0-3.0); HEMATOCRIT 27.7 % (36.0-47.0); HEMOGLOBIN 9.6 g/dl (12.0-16.0); IMMATURE GRANULOCYTE % 0.3 % (0-0); LYMPH # 0.7 10^3/uL (1.5-4.5); LYMPH % 18.4 % (24.0-44.0); MEAN CORPUSCULAR HEMOGLOBIN 31.4 pg (27.0-33.0); MEAN CORPUSCULAR HGB CONC 34.7 g/dl (32.0-36.5); MEAN CORPUSCULAR VOLUME 90.5 fl (80.0-96.0); MONO # 0.4 10^3/uL (0.0-0.8); MONO % 9.4 % (0.0-5.0); NEUTROPHILS # 2.7 10^3/uL (1.8-7.7); NEUTROPHILS % 67.8 % (36.0-66.0); PLATELET COUNT, AUTOMATED 203 10^3/uL (150-450); RED BLOOD COUNT 3.06 10^6/uL (4.00-5.40); RED CELL DISTRIBUTION WIDTH 14.4 % (11.5-14.5); WHITE BLOOD COUNT 3.9 10^3/uL (4.0-10.0)
[2017-09-07 07:24] LABS: ANION GAP 7 MEQ/L (8-16); BLOOD UREA NITROGEN 6 MG/DL (7-18); CALCIUM LEVEL 8.2 MG/DL (8.8-10.2); CARBON DIOXIDE LEVEL 28 MEQ/L (21-32); CHLORIDE LEVEL 107 MEQ/L (98-107); CREATININE FOR GFR 0.48 MG/DL (0.55-1.02); GLOMERULAR FILTRATION RATE > 60.0 (>45); GLUCOSE, FASTING 121 MG/DL (80-110); POTASSIUM SERUM 3.4 MEQ/L (3.5-5.1); SODIUM LEVEL 142 MEQ/L (136-145)
[2017-09-07] MEDS: PANTOPRAZOLE 40MG TAB (PROTONIX) PO (08:59)
[2017-09-07] MEDS: VITAMIN D 1,000 INTERNATIONAL UNITS TABLET PO (08:59)
[2017-09-07] MEDS: CYANOCOBALAMIN 500 MCG TAB PO (08:59)
[2017-09-07] MEDS: FERROUS SULFATE 325MG TAB PO ×2 (09:00→20:45)
[2017-09-07] MEDS: ENOXAPARIN 40 MG/0.4 ML SYRINGE (J1650) SC (09:00)
[2017-09-07] MEDS: ENALAPRIL MALEATE 10 MG TAB PO (09:00)
[2017-09-07] MEDS: GABAPENTIN 300 MG CAP PO ×3 (09:00→20:45)
[2017-09-07] MEDS: MORPHINE 2 MG/ML 1ML SYRINGE IV ×3 (09:05→20:44)
[2017-09-07] MEDS: AZATHIOPRINE 50 MG PO ×2 (09:05→20:44)
[2017-09-07 12:11] LABS: BEDSIDE GLUCOSE 116 MG/DL (80-115)
[2017-09-07] MEDS: D5W/0.9% SODIUM CHLORIDE 1,000 ML IV (13:57)
[2017-09-07 19:14] LABS: BEDSIDE GLUCOSE 159 MG/DL (80-115)
[2017-09-07] MEDS: ATORVASTATIN 10 MG TAB PO (20:44)
[2017-09-08] MEDS: HumaLOG INSULIN (NovoLOG) PER UNIT SC ×4 (00:04→16:48)
[2017-09-08 02:42] LABS: BEDSIDE GLUCOSE 130 MG/DL (80-115)
[2017-09-08] MEDS: PERCOCET 5MG/325MG TAB PO ×4 (03:24→19:49)
[2017-09-08] MEDS: ONDANSETRON 4MG/2ML VIAL (J2405) IV (04:16)
[2017-09-08 06:08] LABS: BEDSIDE GLUCOSE 127 MG/DL (80-115)
[2017-09-08 07:13] LABS: BASO % 0.5 % (0.0-1.0); EOS # 0.2 10^3/uL (0.0-0.50); HEMATOCRIT 27.9 % (36.0-47.0); HEMOGLOBIN 9.7 g/dl (12.0-16.0); IMMATURE GRANULOCYTE % 0.2 % (0-0); LYMPH # 0.6 10^3/uL (1.5-4.5); LYMPH % 14.4 % (24.0-44.0); MEAN CORPUSCULAR HEMOGLOBIN 31.4 pg (27.0-33.0); MEAN CORPUSCULAR HGB CONC 34.8 g/dl (32.0-36.5); MEAN CORPUSCULAR VOLUME 90.3 fl (80.0-96.0); MONO # 0.4 10^3/uL (0.0-0.8); MONO % 9.9 % (0.0-5.0); PLATELET COUNT, AUTOMATED 228 10^3/uL (150-450); RED BLOOD COUNT 3.09 10^6/uL (4.00-5.40); RED CELL DISTRIBUTION WIDTH 14.7 % (11.5-14.5); WHITE BLOOD COUNT 4.3 10^3/uL (4.0-10.0)
[2017-09-08 07:35] LABS: ANION GAP 6 MEQ/L (8-16); BLOOD UREA NITROGEN 4 MG/DL (7-18); CALCIUM LEVEL 8.2 MG/DL (8.8-10.2); CARBON DIOXIDE LEVEL 29 MEQ/L (21-32); CHLORIDE LEVEL 107 MEQ/L (98-107); CREATININE FOR GFR 0.52 MG/DL (0.55-1.02); GLOMERULAR FILTRATION RATE > 60.0 (>45); GLUCOSE, FASTING 127 MG/DL (80-110); POTASSIUM SERUM 3.2 MEQ/L (3.5-5.1); SODIUM LEVEL 142 MEQ/L (136-145)
[2017-09-08] MEDS: D5W/0.9% SODIUM CHLORIDE 1,000 ML IV (08:51)
[2017-09-08] MEDS: VITAMIN D 1,000 INTERNATIONAL UNITS TABLET PO (08:51)
[2017-09-08] MEDS: CYANOCOBALAMIN 500 MCG TAB PO (08:51)
[2017-09-08] MEDS: FERROUS SULFATE 325MG TAB PO ×2 (08:52→19:47)
[2017-09-08] MEDS: GABAPENTIN 300 MG CAP PO ×3 (08:52→19:47)
[2017-09-08] MEDS: ENALAPRIL MALEATE 10 MG TAB PO (08:52)
[2017-09-08] MEDS: PANTOPRAZOLE 40MG TAB (PROTONIX) PO (08:53)
[2017-09-08] MEDS: ENOXAPARIN 40 MG/0.4 ML SYRINGE (J1650) SC (08:54)
[2017-09-08] MEDS: AZATHIOPRINE 50 MG PO ×2 (08:55→19:48)
[2017-09-08 12:19] LABS: BEDSIDE GLUCOSE 115 MG/DL (80-115)
[2017-09-08] MEDS: INFLUENZA QUADRIVALENT PF VACCINE 0.5ML SYRINGE (90686) IM (13:52)
[2017-09-08] MEDS: MORPHINE 2 MG/ML 1ML SYRINGE IV (16:48)
[2017-09-08 16:56] LABS: BEDSIDE GLUCOSE 135 MG/DL (80-115)
[2017-09-08] MEDS: ATORVASTATIN 10 MG TAB PO (19:47)
[2017-09-08 20:33] LABS: BEDSIDE GLUCOSE 189 MG/DL (80-115)
[2017-09-09] MEDS: PERCOCET 5MG/325MG TAB PO ×4 (01:04→19:57)
[2017-09-09 07:09] LABS: BASO % 0.5 % (0.0-1.0); EOS # 0.2 10^3/uL (0.0-0.50); EOS % 4.9 % (0.0-3.0); HEMATOCRIT 27.5 % (36.0-47.0); HEMOGLOBIN 9.5 g/dl (12.0-16.0); IMMATURE GRANULOCYTE % 0.5 % (0-0); LYMPH # 0.7 10^3/uL (1.5-4.5); LYMPH % 16.1 % (24.0-44.0); MEAN CORPUSCULAR HEMOGLOBIN 31.3 pg (27.0-33.0); MEAN CORPUSCULAR HGB CONC 34.5 g/dl (32.0-36.5); MEAN CORPUSCULAR VOLUME 90.5 fl (80.0-96.0); MONO # 0.4 10^3/uL (0.0-0.8); MONO % 9.3 % (0.0-5.0); NEUTROPHILS # 2.9 10^3/uL (1.8-7.7); NEUTROPHILS % 68.7 % (36.0-66.0); PLATELET COUNT, AUTOMATED 221 10^3/uL (150-450); RED BLOOD COUNT 3.04 10^6/uL (4.00-5.40); RED CELL DISTRIBUTION WIDTH 14.8 % (11.5-14.5); WHITE BLOOD COUNT 4.3 10^3/uL (4.0-10.0)
[2017-09-09 07:35] LABS: ANION GAP 8 MEQ/L (8-16); BLOOD UREA NITROGEN 5 MG/DL (7-18); CALCIUM LEVEL 8.5 MG/DL (8.8-10.2); CARBON DIOXIDE LEVEL 30 MEQ/L (21-32); CHLORIDE LEVEL 105 MEQ/L (98-107); CREATININE FOR GFR 0.56 MG/DL (0.55-1.02); GLOMERULAR FILTRATION RATE > 60.0 (>45); GLUCOSE, FASTING 106 MG/DL (70-100); POTASSIUM SERUM 3.3 MEQ/L (3.5-5.1); SODIUM LEVEL 143 MEQ/L (136-145)
[2017-09-09] MEDS: VITAMIN D 1,000 INTERNATIONAL UNITS TABLET PO (09:01)
[2017-09-09] MEDS: GABAPENTIN 300 MG CAP PO ×3 (09:02→20:50)
[2017-09-09] MEDS: ENOXAPARIN 40 MG/0.4 ML SYRINGE (J1650) SC (09:04)
[2017-09-09] MEDS: POTASSIUM CHLORIDE 10 MEQ SR TABLET PO ×2 (09:04→20:51)
[2017-09-09] MEDS: CYANOCOBALAMIN 500 MCG TAB PO (09:05)
[2017-09-09] MEDS: ENALAPRIL MALEATE 10 MG TAB PO (09:05)
[2017-09-09] MEDS: FERROUS SULFATE 325MG TAB PO ×2 (09:05→20:51)
[2017-09-09] MEDS: PANTOPRAZOLE 40MG TAB (PROTONIX) PO (09:05)
[2017-09-09] MEDS: AZATHIOPRINE 50 MG PO ×2 (09:07→20:52)
[2017-09-09 13:23] LABS: BEDSIDE GLUCOSE 116 MG/DL (80-115)
[2017-09-09] MEDS: hydroCHLOROthiazide 25 MG TAB PO (15:50)
[2017-09-09 17:23] LABS: BEDSIDE GLUCOSE 127 MG/DL (80-115)
[2017-09-09] MEDS: ATORVASTATIN 10 MG TAB PO (20:50)
[2017-09-10] MEDS: PERCOCET 5MG/325MG TAB PO ×4 (00:52→20:34)
[2017-09-10 07:34] LABS: BASO % 0.5 % (0.0-1.0); EOS # 0.2 10^3/uL (0.0-0.50); EOS % 3.7 % (0.0-3.0); HEMATOCRIT 29.8 % (36.0-47.0); HEMOGLOBIN 10.3 g/dl (12.0-16.0); IMMATURE GRANULOCYTE % 0.5 % (0-0); LYMPH # 0.8 10^3/uL (1.5-4.5); LYMPH % 19.1 % (24.0-44.0); MEAN CORPUSCULAR HEMOGLOBIN 31.4 pg (27.0-33.0); MEAN CORPUSCULAR HGB CONC 34.6 g/dl (32.0-36.5); MEAN CORPUSCULAR VOLUME 90.9 fl (80.0-96.0); MONO # 0.4 10^3/uL (0.0-0.8); MONO % 10.4 % (0.0-5.0); NEUTROPHILS # 2.7 10^3/uL (1.8-7.7); NEUTROPHILS % 65.8 % (36.0-66.0); PLATELET COUNT, AUTOMATED 246 10^3/uL (150-450); RED BLOOD COUNT 3.28 10^6/uL (4.00-5.40); RED CELL DISTRIBUTION WIDTH 14.6 % (11.5-14.5)
[2017-09-10 07:46] LABS: ANION GAP 6 MEQ/L (8-16); BLOOD UREA NITROGEN 5 MG/DL (7-18); CALCIUM LEVEL 9.1 MG/DL (8.8-10.2); CARBON DIOXIDE LEVEL 31 MEQ/L (21-32); CHLORIDE LEVEL 104 MEQ/L (98-107); CREATININE FOR GFR 0.63 MG/DL (0.55-1.02); GLOMERULAR FILTRATION RATE > 60.0 (>45); GLUCOSE, FASTING 118 MG/DL (70-100); POTASSIUM SERUM 3.7 MEQ/L (3.5-5.1); SODIUM LEVEL 141 MEQ/L (136-145)
[2017-09-10] MEDS: VITAMIN D 1,000 INTERNATIONAL UNITS TABLET PO (08:21)
[2017-09-10] MEDS: hydroCHLOROthiazide 25 MG TAB PO (08:23)
[2017-09-10] MEDS: CYANOCOBALAMIN 500 MCG TAB PO (08:23)
[2017-09-10] MEDS: AZATHIOPRINE 50 MG PO ×2 (08:23→20:32)
[2017-09-10] MEDS: PANTOPRAZOLE 40MG TAB (PROTONIX) PO (08:23)
[2017-09-10] MEDS: FERROUS SULFATE 325MG TAB PO ×2 (08:23→20:32)
[2017-09-10] MEDS: ENALAPRIL MALEATE 10 MG TAB PO (08:24)
[2017-09-10] MEDS: GABAPENTIN 300 MG CAP PO ×3 (08:24→20:33)
[2017-09-10] MEDS: ENOXAPARIN 40 MG/0.4 ML SYRINGE (J1650) SC (08:25)
[2017-09-10] MEDS: DOCUSATE SODIUM 100 MG CAP PO ×2 (08:31→20:33)
[2017-09-10] MEDS: POTASSIUM CHLORIDE 10 MEQ SR TABLET PO (08:32)
[2017-09-10 11:59] LABS: BEDSIDE GLUCOSE 132 MG/DL (80-115)
[2017-09-10 17:47] LABS: BEDSIDE GLUCOSE 103 MG/DL (80-115)
[2017-09-10] MEDS: SIMETHICONE 80 MG CHEW TAB PO ×2 (17:48→20:33)
[2017-09-10] MEDS: ATORVASTATIN 10 MG TAB PO (20:32)
[2017-09-11] MEDS: PERCOCET 5MG/325MG TAB PO ×5 (00:47→23:44)
[2017-09-11 02:39] LABS: BEDSIDE GLUCOSE 121 MG/DL (80-115)
[2017-09-11 06:15] LABS: BEDSIDE GLUCOSE 117 MG/DL (80-115)
[2017-09-11] MEDS: ENOXAPARIN 40 MG/0.4 ML SYRINGE (J1650) SC (08:17)
[2017-09-11] MEDS: BISACODYL 10 MG SUPP PR (08:17)
[2017-09-11] MEDS: ENALAPRIL MALEATE 10 MG TAB PO (08:18)
[2017-09-11] MEDS: FERROUS SULFATE 325MG TAB PO ×2 (08:18→21:39)
[2017-09-11] MEDS: hydroCHLOROthiazide 25 MG TAB PO (08:18)
[2017-09-11] MEDS: CYANOCOBALAMIN 500 MCG TAB PO (08:18)
[2017-09-11] MEDS: SENOKOT S TAB PO ×2 (08:18→21:39)
[2017-09-11] MEDS: VITAMIN D 1,000 INTERNATIONAL UNITS TABLET PO (08:18)
[2017-09-11] MEDS: GABAPENTIN 300 MG CAP PO ×3 (08:19→21:39)
[2017-09-11] MEDS: AZATHIOPRINE 50 MG PO ×2 (08:19→21:41)
[2017-09-11] MEDS: SIMETHICONE 80 MG CHEW TAB PO ×3 (08:19→21:39)
[2017-09-11] MEDS: PANTOPRAZOLE 40MG TAB (PROTONIX) PO (08:19)
[2017-09-11] MEDS: ONDANSETRON 4MG/2ML VIAL (J2405) IV (10:29)
[2017-09-11 12:19] LABS: BEDSIDE GLUCOSE 192 MG/DL (80-115)
[2017-09-11 14:28] LABS: HEMATOCRIT 33.2 % (36.0-47.0); HEMOGLOBIN 11.7 g/dl (12.0-16.0); MEAN CORPUSCULAR HEMOGLOBIN 31.5 pg (27.0-33.0); MEAN CORPUSCULAR HGB CONC 35.2 g/dl (32.0-36.5); MEAN CORPUSCULAR VOLUME 89.2 fl (80.0-96.0); PLATELET COUNT, AUTOMATED 259 10^3/uL (150-450); RED BLOOD COUNT 3.72 10^6/uL (4.00-5.40); RED CELL DISTRIBUTION WIDTH 14.6 % (11.5-14.5)
[2017-09-11 15:05] LABS: LACTIC ACID SEPSIS PROTOCOL 2.5 MMOL/L (0.4-2.0)
[2017-09-11] MEDS: NS 1,000 ML IV (15:22)
[2017-09-11] MEDS: NS 500 ML IV (20:15)
[2017-09-11 21:19] LABS: BEDSIDE GLUCOSE 125 MG/DL (80-115)
[2017-09-11] MEDS: ATORVASTATIN 10 MG TAB PO (21:39)
[2017-09-11 21:58] LABS: BEDSIDE GLUCOSE 156 MG/DL (80-115)
[2017-09-11 22:19] LABS: HEMATOCRIT 33.1 % (36.0-47.0); HEMOGLOBIN 11.3 g/dl (12.0-16.0); MEAN CORPUSCULAR HEMOGLOBIN 30.9 pg (27.0-33.0); MEAN CORPUSCULAR HGB CONC 34.1 g/dl (32.0-36.5); MEAN CORPUSCULAR VOLUME 90.4 fl (80.0-96.0); PLATELET COUNT, AUTOMATED 290 10^3/uL (150-450); RED BLOOD COUNT 3.66 10^6/uL (4.00-5.40); RED CELL DISTRIBUTION WIDTH 14.7 % (11.5-14.5)
[2017-09-11 22:48] LABS: LACTIC ACID SEPSIS PROTOCOL 2.4 MMOL/L (0.4-2.0)
[2017-09-12] MEDS: NS 1,000 ML IV (01:12)
[2017-09-12] MEDS: PERCOCET 5MG/325MG TAB PO ×2 (03:57→08:46)
[2017-09-12 07:07] LABS: HEMATOCRIT 30.4 % (36.0-47.0); HEMOGLOBIN 10.3 g/dl (12.0-16.0); MEAN CORPUSCULAR HEMOGLOBIN 30.9 pg (27.0-33.0); MEAN CORPUSCULAR HGB CONC 33.9 g/dl (32.0-36.5); MEAN CORPUSCULAR VOLUME 91.3 fl (80.0-96.0); PLATELET COUNT, AUTOMATED 244 10^3/uL (150-450); RED BLOOD COUNT 3.33 10^6/uL (4.00-5.40); WHITE BLOOD COUNT 5.3 10^3/uL (4.0-10.0)
[2017-09-12 07:23] LABS: ANION GAP 6 MEQ/L (8-16); BLOOD UREA NITROGEN 7 MG/DL (7-18); CALCIUM LEVEL 8.6 MG/DL (8.8-10.2); CARBON DIOXIDE LEVEL 31 MEQ/L (21-32); CHLORIDE LEVEL 103 MEQ/L (98-107); CREATININE FOR GFR 0.67 MG/DL (0.55-1.02); GLOMERULAR FILTRATION RATE > 60.0 (>45); GLUCOSE, FASTING 127 MG/DL (70-100); LIPASE 110 U/L (73-393); POTASSIUM SERUM 3.6 MEQ/L (3.5-5.1); SODIUM LEVEL 140 MEQ/L (136-145)
[2017-09-12] MEDS: VITAMIN D 1,000 INTERNATIONAL UNITS TABLET PO (08:44)
[2017-09-12] MEDS: GABAPENTIN 300 MG CAP PO (08:44)
[2017-09-12] MEDS: SENOKOT S TAB PO (08:44)
[2017-09-12] MEDS: ENALAPRIL MALEATE 10 MG TAB PO (08:44)
[2017-09-12] MEDS: FERROUS SULFATE 325MG TAB PO (08:45)
[2017-09-12] MEDS: CYANOCOBALAMIN 500 MCG TAB PO (08:45)
[2017-09-12] MEDS: SIMETHICONE 80 MG CHEW TAB PO (08:45)
[2017-09-12] MEDS: PANTOPRAZOLE 40MG TAB (PROTONIX) PO (08:46)
[2017-09-12] MEDS: hydroCHLOROthiazide 25 MG TAB PO (08:46)
[2017-09-12] MEDS: AZATHIOPRINE 50 MG PO (08:47)
== END 2017-09-12 11:20 | disposition home or self-care (01) | DRG 247 ==
LOC: M MS5PR 09-04 00:08 → M ED 15:50 → M ED INP 21:18
DX: K56.7 Ileus, unspecified (principal); E87.2 Acidosis; K50.90 Crohn's disease, unspecified, without complications; I10 Essential (primary) hypertension; E11.9 Type 2 diabetes mellitus without complications; E78.5 Hyperlipidemia, unspecified; K21.9 Gastro-esophageal reflux disease without esophagitis; Z79.84 Long term (current) use of oral hypoglycemic drugs; Z91.018 Allergy to other foods; Z88.8 Allergy status to other drugs, medicaments and biological substances; Z88.1 Allergy status to other antibiotic agents; Z87.891 Personal history of nicotine dependence; Z79.899 Other long term (current) drug therapy

== ENCOUNTER → 2017-10-20 | Outpatient (CLI) | payer OTHER ==
[2017-10-20 09:19] LABS: BASO % 0.4 % (0.0-1.0); EOS # 0.1 10^3/uL (0.0-0.50); EOS % 2.5 % (0.0-3.0); HEMATOCRIT 33.2 % (36.0-47.0); HEMOGLOBIN 11.2 g/dl (12.0-16.0); IMMATURE GRANULOCYTE % 0.4 % (0-3.0); LYMPH # 0.8 10^3/uL (1.5-4.5); LYMPH % 15.9 % (24.0-44.0); MEAN CORPUSCULAR HEMOGLOBIN 30.6 pg (27.0-33.0); MEAN CORPUSCULAR HGB CONC 33.7 g/dl (32.0-36.5); MEAN CORPUSCULAR VOLUME 90.7 fl (80.0-96.0); MONO # 0.4 10^3/uL (0.0-0.8); MONO % 8.3 % (0.0-5.0); NEUTROPHILS # 3.7 10^3/uL (1.8-7.7); NEUTROPHILS % 72.5 % (36.0-66.0); PLATELET COUNT, AUTOMATED 255 10^3/uL (150-450); RED BLOOD COUNT 3.66 10^6/uL (4.00-5.40); RED CELL DISTRIBUTION WIDTH 13.9 % (11.5-14.5); WHITE BLOOD COUNT 5.2 10^3/uL (4.0-10.0)
[2017-10-20 09:46] LABS: ALBUMIN 3.9 GM/DL (3.2-5.2); ALBUMIN/GLOBULIN RATIO 1.44 (1.00-1.93); ALKALINE PHOSPHATASE 68 U/L (45-117); ALT/SGPT 23 U/L (12-78); ANION GAP 8 MEQ/L (8-16); AST/SGOT 29 U/L (7-37); BILIRUBIN,TOTAL 0.7 MG/DL (0.2-1.0); BLOOD UREA NITROGEN 15 MG/DL (7-18); CALCIUM LEVEL 8.8 MG/DL (8.8-10.2); CARBON DIOXIDE LEVEL 30 MEQ/L (21-32); CHLORIDE LEVEL 105 MEQ/L (98-107); CHOLESTEROL LEVEL 142 MG/DL (<200); CHOLESTEROL RISK RATIO 3.641 (<5); CREATININE FOR GFR 0.61 MG/DL (0.55-1.30); GLOMERULAR FILTRATION RATE > 60.0 (>45); GLUCOSE, FASTING 145 MG/DL (70-100); HDL CHOLESTEROL 39 MG/DL (>40); LDL CHOLESTEROL 69.6 MG/DL (<100); NON-HDL-C 103 MG/DL; POTASSIUM SERUM 4.1 MEQ/L (3.5-5.1); SODIUM LEVEL 143 MEQ/L (136-145); TOTAL PROTEIN 6.6 GM/DL (6.4-8.2); TRIGLYCERIDES LEVEL 167 MG/DL (<150)
[2017-10-20 09:54] LABS: ESTIMATED AVERAGE GLUCOSE 157 MG/DL (60-110); HEMOGLOBIN A1c 7.1 %
== END ==
LOC: M LAB 08:57
DX: E11.9 Type 2 diabetes mellitus without complications (principal)
CPT/HCPCS: 80053

== ENCOUNTER → 2017-10-22 | Outpatient (CLI) | payer OTHER ==
[2017-10-22 12:10] LABS: BASO # 0.1 10^3/uL (0.0-0.2); BASO % 0.7 % (0.0-1.0); EOS # 0.2 10^3/uL (0.0-0.50); EOS % 2.8 % (0.0-3.0); HEMATOCRIT 34.1 % (36.0-47.0); HEMOGLOBIN 11.7 g/dl (12.0-16.0); IMMATURE GRANULOCYTE % 0.6 % (0-3.0); LYMPH # 1.2 10^3/uL (1.5-4.5); LYMPH % 16.7 % (24.0-44.0); MEAN CORPUSCULAR HEMOGLOBIN 30.6 pg (27.0-33.0); MEAN CORPUSCULAR HGB CONC 34.3 g/dl (32.0-36.5); MEAN CORPUSCULAR VOLUME 89.3 fl (80.0-96.0); MONO # 0.7 10^3/uL (0.0-0.8); MONO % 9.6 % (0.0-5.0); NEUTROPHILS # 4.8 10^3/uL (1.8-7.7); NEUTROPHILS % 69.6 % (36.0-66.0); PLATELET COUNT, AUTOMATED 296 10^3/uL (150-450); RED BLOOD COUNT 3.82 10^6/uL (4.00-5.40); WHITE BLOOD COUNT 6.9 10^3/uL (4.0-10.0)
[2017-10-22 12:45] LABS: ALBUMIN 4.2 GM/DL (3.2-5.2); ALBUMIN/GLOBULIN RATIO 1.45 (1.00-1.93); ALKALINE PHOSPHATASE 94 U/L (45-117); ALT/SGPT 26 U/L (12-78); ANION GAP 10 MEQ/L (8-16); AST/SGOT 25 U/L (7-37); BILIRUBIN,TOTAL 0.7 MG/DL (0.2-1.0); BLOOD UREA NITROGEN 13 MG/DL (7-18); C REACTIVE PROTEIN QUANTITATIV < 0.30 MG/DL (0.00-0.30); CALCIUM LEVEL 9.4 MG/DL (8.8-10.2); CARBON DIOXIDE LEVEL 30 MEQ/L (21-32); CHLORIDE LEVEL 101 MEQ/L (98-107); CREATININE FOR GFR 0.63 MG/DL (0.55-1.30); GLOMERULAR FILTRATION RATE > 60.0 (>45); GLUCOSE, FASTING 120 MG/DL (70-100); SODIUM LEVEL 141 MEQ/L (136-145); TOTAL PROTEIN 7.1 GM/DL (6.4-8.2)
[2017-10-22 12:56] LABS: HEPATITIS B SURFACE ANTIBODY NEGATIVE (POSITIVE)
[2017-10-22 13:06] LABS: HEPATITIS B SURFACE ANTIGEN NEGATIVE (NEGATIVE)
[2017-10-22 13:34] LABS: HEPATITIS C VIRUS ABY INDEX 0.1 INDEX (<0.8)
[2017-10-23 14:14] LABS: HEPATITIS A IgG TOTAL Negative (Negative)
== END ==
LOC: M LAB 10:52
DX: K50.012 Crohn's disease of small intestine with intestinal obstruction (principal)
CPT/HCPCS: 80053

== ENCOUNTER → 2017-10-22 | Outpatient (REF) | payer OTHER ==
[2017-10-22 10:41] LABS: CREATININE, URINE 75.2 MG/DL; MAU/CREAT RATIO 1198.1 MCG/MG (0.0-30.0)
[2017-10-25 00:06] LABS: QUANTIFERON GOLD TB Negative (Negative); TB Test (QFT) Antigen 0.01 IU/mL (.); TB Test (QFT) Antigen Minus Ni <0.01 IU/mL (.); TB Test (QFT) Mitogen >10.00 IU/mL (.); TB Test (QFT) Nil 0.02 IU/mL (.)
== END ==
LOC: M LAB REF 09:03
DX: K50.012 Crohn's disease of small intestine with intestinal obstruction (principal)
CPT/HCPCS: 82043

== ENCOUNTER 2017-12-03 12:21 | Outpatient (CLI) | payer OTHER ==
[2017-12-03] MEDS: diphenhydrAMINE 25 MG CAP PO (12:43)
[2017-12-03] MEDS: ACETAMINOPHEN TAB 650MG DOSE (2X325MG) PO (12:43)
[2017-12-03] MEDS: NS 1,000 ML IV (12:44)
[2017-12-03] MEDS: inFLIXimab INJECTION 400 MG in NS 210 ML IV (12:55)
== END 2017-12-03 15:30 | disposition home or self-care (01) ==
LOC: M INFU 12:21
DX: K50.90 Crohn's disease, unspecified, without complications (principal); I10 Essential (primary) hypertension; E78.00 Pure hypercholesterolemia, unspecified; E11.9 Type 2 diabetes mellitus without complications; D64.9 Anemia, unspecified; M12.9 Arthropathy, unspecified; Z79.84 Long term (current) use of oral hypoglycemic drugs; Z79.899 Other long term (current) drug therapy; Z88.1 Allergy status to other antibiotic agents; Z88.8 Allergy status to other drugs, medicaments and biological substances; Z87.442 Personal history of urinary calculi; Z87.891 Personal history of nicotine dependence
CPT/HCPCS: J1745

== ENCOUNTER → 2018-01-26 | Outpatient (CLI) | payer OTHER ==
[2018-01-26 09:41] LABS: BASO % 0.4 % (0.0-1.0); EOS # 0.2 10^3/uL (0.0-0.50); EOS % 2.4 % (0.0-3.0); HEMATOCRIT 30.4 % (36.0-47.0); HEMOGLOBIN 10.5 g/dl (12.0-15.5); IMMATURE GRANULOCYTE % 0.4 % (0-3.0); LYMPH % 13.6 % (24.0-44.0); MEAN CORPUSCULAR HEMOGLOBIN 32.3 pg (27.0-33.0); MEAN CORPUSCULAR HGB CONC 34.5 g/dl (32.0-36.5); MEAN CORPUSCULAR VOLUME 93.5 fl (80.0-96.0); MONO # 0.6 10^3/uL (0.0-0.8); MONO % 8.3 % (0.0-5.0); NEUTROPHILS # 5.4 10^3/uL (1.8-7.7); NEUTROPHILS % 74.9 % (36.0-66.0); PLATELET COUNT, AUTOMATED 204 10^3/uL (150-450); RED BLOOD COUNT 3.25 10^6/uL (4.00-5.40); WHITE BLOOD COUNT 7.2 10^3/uL (4.0-10.0)
[2018-01-26 09:55] LABS: ANION GAP 10 MEQ/L (8-16); BLOOD UREA NITROGEN 16 MG/DL (7-18); CALCIUM LEVEL 8.8 MG/DL (8.8-10.2); CARBON DIOXIDE LEVEL 27 MEQ/L (21-32); CHLORIDE LEVEL 104 MEQ/L (98-107); CREATININE FOR GFR 0.67 MG/DL (0.55-1.30); GLOMERULAR FILTRATION RATE > 60.0 (>45); GLUCOSE, FASTING 120 MG/DL (70-100); POTASSIUM SERUM 4.2 MEQ/L (3.5-5.1); SODIUM LEVEL 141 MEQ/L (136-145)
[2018-01-26 10:20] LABS: ESTIMATED AVERAGE GLUCOSE 126 MG/DL (60-110)
== END ==
LOC: M LAB 09:20
DX: E11.69 Type 2 diabetes mellitus with other specified complication (principal)
CPT/HCPCS: 83036

== ENCOUNTER 2018-02-25 07:37 | Outpatient (CLI) | payer OTHER ==
[2018-02-25] MEDS ORDERED: NS 1,000 ML IV (08:00)
[2018-02-25] MEDS: FILTER 1.2 MICRON (ADULT TPN/MANNITOL/REMICADE) XX (08:00)
[2018-02-25] MEDS: ACETAMINOPHEN TAB 650MG DOSE (2X325MG) PO (08:01)
[2018-02-25] MEDS: diphenhydrAMINE 25 MG CAP PO (08:02)
[2018-02-25] MEDS: inFLIXimab INJECTION 400 MG in NS 210 ML IV (08:23)
== END 2018-02-25 11:00 | disposition home or self-care (01) ==
LOC: M INFU 07:37
DX: K50.90 Crohn's disease, unspecified, without complications (principal); Z88.1 Allergy status to other antibiotic agents; Z88.8 Allergy status to other drugs, medicaments and biological substances; Z88.5 Allergy status to narcotic agent; Z91.018 Allergy to other foods; Z79.84 Long term (current) use of oral hypoglycemic drugs; Z79.899 Other long term (current) drug therapy
CPT/HCPCS: J1745

== ENCOUNTER 2018-02-25 19:32 | Inpatient (IN) | payer OTHER ==
[2018-02-25] MEDS ORDERED: methylPREDNISolone INJ 125 MG/2 ML VIAL (J2930) IV (20:15)
[2018-02-25] MEDS: MORPHINE 4 MG/ML 1ML VIAL/SYRINGE (J2270) IV (21:06)
[2018-02-25] MEDS: ONDANSETRON 4MG/2ML VIAL (J2405) IV (21:06)
[2018-02-25] MEDS: NS 1,000 ML IV ×2 (21:07→22:26)
[2018-02-25 21:09] LABS: HEMATOCRIT 32.3 % (36.0-47.0); HEMOGLOBIN 11.2 g/dl (12.0-15.5); MEAN CORPUSCULAR HEMOGLOBIN 31.5 pg (27.0-33.0); MEAN CORPUSCULAR HGB CONC 34.7 g/dl (32.0-36.5); PLATELET COUNT, AUTOMATED 283 10^3/uL (150-450); RED BLOOD COUNT 3.55 10^6/uL (4.00-5.40); WHITE BLOOD COUNT 12.9 10^3/uL (4.0-10.0)
[2018-02-25 21:40] LABS: ALBUMIN 3.7 GM/DL (3.2-5.2); ALBUMIN/GLOBULIN RATIO 1.12 (1.00-1.93); ALKALINE PHOSPHATASE 90 U/L (45-117); ALT/SGPT 24 U/L (12-78); AMYLASE 33 U/L (25-115); ANION GAP 13 MEQ/L (8-16); AST/SGOT 29 U/L (7-37); BILIRUBIN,DIRECT 0.2 MG/DL (0.0-0.2); BILIRUBIN,TOTAL 0.8 MG/DL (0.2-1.0); BLOOD UREA NITROGEN 13 MG/DL (7-18); C REACTIVE PROTEIN QUANTITATIV 1.71 MG/DL (0.00-0.30); CALCIUM LEVEL 8.6 MG/DL (8.8-10.2); CARBON DIOXIDE LEVEL 23 MEQ/L (21-32); CHLORIDE LEVEL 103 MEQ/L (98-107); CK-MB VALUE MASS < 1.0 NG/ML (<3.6); CPK CREATINE PHOSPHOKINASE 41 U/L (26-192); CREATININE FOR GFR 0.97 MG/DL (0.55-1.30); GLOMERULAR FILTRATION RATE > 60.0 (>45); GLUCOSE, FASTING 225 MG/DL (70-100); LIPASE 90 U/L (73-393); MB/CK RELATIVE INDEX 2.43 (< OR =4); POTASSIUM SERUM 4.2 MEQ/L (3.5-5.1); SODIUM LEVEL 139 MEQ/L (136-145); TROPONIN I < 0.02 NG/ML (< 0.10)
[2018-02-25 21:42] LABS: ERYTHROCYTE SEDIMENTATION RATE 26 mm/hr (0-30)
[2018-02-25 21:51] LABS: LACTIC ACID SEPSIS PROTOCOL 5.5 MMOL/L (0.4-2.0)
[2018-02-25] MEDS: PIPERACILLIN/TAZOBACTAM SOD 3.375 GM in D5W MINI-BAG PLUS 50 ML IV (22:26)
[2018-02-25] MEDS: ACETAMINOPHEN TAB 650MG DOSE (2X325MG) PO (22:26)
[2018-02-25] MEDS ORDERED: ISOVUE-370 76% 100ML VIAL (Q9967) As Ordered (22:36)
[2018-02-25 22:38] LABS: KETONE, URINE AUTO RFX TRACE mg/dL (NEGATIVE); LEUKOCYTE ESTERASE UR AUTO RFX NEGATIVE (NEGATIVE); NITRITE, URINE AUTO RFX NEGATIVE (NEGATIVE); RBC, URINE AUTO RFX 2 /HPF (0-3); SPECIFIC GRAVITY UR AUTO RFX 1.015 (1.002-1.035); SQUAM EPITHELIAL CELL UR AURFX 0 /HPF (0-6); WBC, URINE AUTO RFX 3 /HPF (0-3)
[2018-02-26] MEDS: MORPHINE 4 MG/ML 1ML VIAL/SYRINGE (J2270) IV ×4 (03:48→23:47)
[2018-02-26] MEDS: NS 1,000 ML IV (03:48)
[2018-02-26 05:18] LABS: LACTIC ACID SEPSIS PROTOCOL 2.4 MMOL/L (0.4-2.0)
[2018-02-26] MEDS ORDERED: ONDANSETRON 4MG/2ML VIAL (J2405) IV (05:30)
[2018-02-26] MEDS: METOCLOPRAMIDE INJ 10MG/2ML VIAL (J2765) IV (05:38)
[2018-02-26] MEDS ORDERED: GLUCAGON FOR INJ 1 MG VIAL (J1610) SC (06:15)
[2018-02-26] MEDS ORDERED: DEXTROSE 50% 50 ML SYRINGE IV (06:15)
[2018-02-26] MEDS ORDERED: GLUCOSE 4 GM CHEW TABLET PO (06:15)
[2018-02-26] MEDS: D5W/0.45% SODIUM CHLORIDE 1,000 ML IV (07:26)
[2018-02-26] MEDS: ACETAMINOPHEN TAB 650MG DOSE (2X325MG) PO ×3 (08:37→21:03)
[2018-02-26 08:41] LABS: BEDSIDE GLUCOSE 192 MG/DL (80-115)
[2018-02-26] MEDS: HumaLOG INSULIN (NovoLOG) PER UNIT SC ×4 (08:44→23:40)
[2018-02-26] MEDS ORDERED: AZITHROMYCIN 250 MG TAB PO (09:00)
[2018-02-26] MEDS ORDERED: hydroCHLOROthiazide 25 MG TAB PO (09:00)
[2018-02-26] MEDS ORDERED: predniSONE 20 MG TAB PO (09:00)
[2018-02-26 09:30] LABS: BASO % 0.2 % (0.0-1.0); EOS % 0.1 % (0.0-3.0); HEMATOCRIT 28.4 % (36.0-47.0); HEMOGLOBIN 9.6 g/dl (12.0-15.5); IMMATURE GRANULOCYTE % 0.8 % (0-3.0); LYMPH # 0.7 10^3/uL (1.5-4.5); MEAN CORPUSCULAR HEMOGLOBIN 31.5 pg (27.0-33.0); MEAN CORPUSCULAR HGB CONC 33.8 g/dl (32.0-36.5); MEAN CORPUSCULAR VOLUME 93.1 fl (80.0-96.0); MONO # 0.5 10^3/uL (0.0-0.8); MONO % 2.9 % (0.0-5.0); PLATELET COUNT, AUTOMATED 243 10^3/uL (150-450); RED BLOOD COUNT 3.05 10^6/uL (4.00-5.40); RED CELL DISTRIBUTION WIDTH 13.5 % (11.5-14.5); WHITE BLOOD COUNT 17.4 10^3/uL (4.0-10.0)
[2018-02-26] MEDS: cefTRIAXone SOD 1 GM in D5W MINI-BAG PLUS 50 ML IV (09:34)
[2018-02-26 09:57] LABS: ALBUMIN 3.1 GM/DL (3.2-5.2); ALBUMIN/GLOBULIN RATIO 1.07 (1.00-1.93); ALKALINE PHOSPHATASE 61 U/L (45-117); ALT/SGPT 19 U/L (12-78); ANION GAP 10 MEQ/L (8-16); AST/SGOT 15 U/L (7-37); BILIRUBIN,TOTAL 0.9 MG/DL (0.2-1.0); BLOOD UREA NITROGEN 13 MG/DL (7-18); CALCIUM LEVEL 7.3 MG/DL (8.8-10.2); CARBON DIOXIDE LEVEL 24 MEQ/L (21-32); CHLORIDE LEVEL 107 MEQ/L (98-107); CREATININE FOR GFR 0.91 MG/DL (0.55-1.30); GLOMERULAR FILTRATION RATE > 60.0 (>45); GLUCOSE, FASTING 197 MG/DL (70-100); POTASSIUM SERUM 3.8 MEQ/L (3.5-5.1); SODIUM LEVEL 141 MEQ/L (136-145)
[2018-02-26] MEDS: D5W/0.9% SODIUM CHLORIDE 1,000 ML IV ×2 (10:38→16:38)
[2018-02-26] MEDS: ENALAPRIL MALEATE 10 MG TAB PO (11:07)
[2018-02-26] MEDS: CYANOCOBALAMIN 500 MCG TAB PO (11:09)
[2018-02-26] MEDS: VITAMIN D 1,000 INTERNATIONAL UNITS TABLET PO (11:10)
[2018-02-26] MEDS: PANTOPRAZOLE 40MG TAB (PROTONIX) PO (11:10)
[2018-02-26] MEDS: GABAPENTIN 300 MG CAP PO ×3 (11:11→20:51)
[2018-02-26] MEDS: ENOXAPARIN 40 MG/0.4 ML SYRINGE (J1650) SC (11:11)
[2018-02-26] MEDS: FERROUS SULFATE 325MG TAB PO ×2 (11:11→20:50)
[2018-02-26] MEDS: methylPREDNISolone INJ 40 MG/1 ML VIAL (J2920) IV (11:12)
[2018-02-26] MEDS: metroNIDAZOLE 500 MG in APPROPRIATE DILUENT 1 EA IV ×2 (11:13→18:21)
[2018-02-26 12:15] LABS: BEDSIDE GLUCOSE 195 MG/DL (80-115)
[2018-02-26] MEDS: diphenhydrAMINE INJ 50MG/ML VIAL (J1200) IV (12:51)
[2018-02-26 18:09] LABS: BEDSIDE GLUCOSE 291 MG/DL (80-115)
[2018-02-26] MEDS: ATORVASTATIN 10 MG TAB PO (20:51)
[2018-02-26 23:30] LABS: BEDSIDE GLUCOSE 268 MG/DL (80-115)
[2018-02-27] MEDS: D5W/0.45% SODIUM CHLORIDE 1,000 ML IV ×2 (00:56→19:52)
[2018-02-27] MEDS: metroNIDAZOLE 500 MG in APPROPRIATE DILUENT 1 EA IV ×3 (02:28→18:38)
[2018-02-27 06:17] LABS: BEDSIDE GLUCOSE 190 MG/DL (80-115)
[2018-02-27] MEDS: HumaLOG INSULIN (NovoLOG) PER UNIT SC ×3 (06:31→18:39)
[2018-02-27] MEDS: ACETAMINOPHEN TAB 650MG DOSE (2X325MG) PO ×2 (06:32→17:07)
[2018-02-27] MEDS: ENOXAPARIN 40 MG/0.4 ML SYRINGE (J1650) SC (08:55)
[2018-02-27] MEDS: GABAPENTIN 300 MG CAP PO ×3 (08:56→20:37)
[2018-02-27] MEDS: VITAMIN D 1,000 INTERNATIONAL UNITS TABLET PO (08:56)
[2018-02-27] MEDS: CYANOCOBALAMIN 500 MCG TAB PO (08:56)
[2018-02-27] MEDS: FERROUS SULFATE 325MG TAB PO ×2 (08:56→20:37)
[2018-02-27] MEDS: PANTOPRAZOLE 40MG TAB (PROTONIX) PO (08:56)
[2018-02-27] MEDS: methylPREDNISolone INJ 40 MG/1 ML VIAL (J2920) IV (08:56)
[2018-02-27] MEDS: cefTRIAXone SOD 1 GM in D5W MINI-BAG PLUS 50 ML IV (08:59)
[2018-02-27 09:49] LABS: BASO % 0.1 % (0.0-1.0); EOS % 0.1 % (0.0-3.0); HEMATOCRIT 27.7 % (36.0-47.0); HEMOGLOBIN 9.2 g/dl (12.0-15.5); IMMATURE GRANULOCYTE % 1.3 % (0-3.0); LYMPH # 1.1 10^3/uL (1.5-4.5); LYMPH % 7.5 % (24.0-44.0); MEAN CORPUSCULAR HEMOGLOBIN 31.4 pg (27.0-33.0); MEAN CORPUSCULAR HGB CONC 33.2 g/dl (32.0-36.5); MEAN CORPUSCULAR VOLUME 94.5 fl (80.0-96.0); MONO # 0.6 10^3/uL (0.0-0.8); MONO % 3.6 % (0.0-5.0); NEUTROPHILS # 13.2 10^3/uL (1.8-7.7); NEUTROPHILS % 87.4 % (36.0-66.0); PLATELET COUNT, AUTOMATED 206 10^3/uL (150-450); RED BLOOD COUNT 2.93 10^6/uL (4.00-5.40); RED CELL DISTRIBUTION WIDTH 13.6 % (11.5-14.5); WHITE BLOOD COUNT 15.1 10^3/uL (4.0-10.0)
[2018-02-27 10:13] LABS: ALBUMIN 2.8 GM/DL (3.2-5.2); ALBUMIN/GLOBULIN RATIO 0.93 (1.00-1.93); ALKALINE PHOSPHATASE 56 U/L (45-117); ALT/SGPT 16 U/L (12-78); ANION GAP 10 MEQ/L (8-16); AST/SGOT 7 U/L (7-37); BILIRUBIN,TOTAL 0.4 MG/DL (0.2-1.0); BLOOD UREA NITROGEN 22 MG/DL (7-18); CALCIUM LEVEL 7.4 MG/DL (8.8-10.2); CARBON DIOXIDE LEVEL 22 MEQ/L (21-32); CHLORIDE LEVEL 109 MEQ/L (98-107); CREATININE FOR GFR 0.78 MG/DL (0.55-1.30); GLOMERULAR FILTRATION RATE > 60.0 (>45); GLUCOSE, FASTING 153 MG/DL (70-100); MAGNESIUM LEVEL 1.6 MG/DL (1.8-2.4); POTASSIUM SERUM 3.6 MEQ/L (3.5-5.1); SODIUM LEVEL 141 MEQ/L (136-145); TOTAL PROTEIN 5.8 GM/DL (6.4-8.2)
[2018-02-27] MEDS: MORPHINE 4 MG/ML 1ML VIAL/SYRINGE (J2270) IV ×2 (11:09→20:57)
[2018-02-27 12:26] LABS: BEDSIDE GLUCOSE 189 MG/DL (80-115)
[2018-02-27 12:26] LABS: LACTIC ACID SEPSIS PROTOCOL 1.7 MMOL/L (0.4-2.0)
[2018-02-27 18:34] LABS: BEDSIDE GLUCOSE 224 MG/DL (80-115)
[2018-02-27] MEDS: ATORVASTATIN 10 MG TAB PO (20:36)
[2018-02-27 23:38] LABS: BEDSIDE GLUCOSE 194 MG/DL (80-115)
[2018-02-28] MEDS: D5W/0.45% SODIUM CHLORIDE 1,000 ML IV ×2 (01:05→08:24)
[2018-02-28] MEDS: metroNIDAZOLE 500 MG in APPROPRIATE DILUENT 1 EA IV ×3 (02:19→18:19)
[2018-02-28] MEDS: MORPHINE 4 MG/ML 1ML VIAL/SYRINGE (J2270) IV ×4 (04:39→20:22)
[2018-02-28 07:14] LABS: BASO % 0.1 % (0.0-1.0); EOS % 0.1 % (0.0-3.0); HEMATOCRIT 26.2 % (36.0-47.0); HEMOGLOBIN 8.8 g/dl (12.0-15.5); IMMATURE GRANULOCYTE % 1.2 % (0-3.0); LYMPH # 1.1 10^3/uL (1.5-4.5); LYMPH % 10.1 % (24.0-44.0); MEAN CORPUSCULAR HEMOGLOBIN 31.1 pg (27.0-33.0); MEAN CORPUSCULAR HGB CONC 33.6 g/dl (32.0-36.5); MEAN CORPUSCULAR VOLUME 92.6 fl (80.0-96.0); MONO # 0.4 10^3/uL (0.0-0.8); MONO % 3.4 % (0.0-5.0); NEUTROPHILS # 9.6 10^3/uL (1.8-7.7); NEUTROPHILS % 85.1 % (36.0-66.0); PLATELET COUNT, AUTOMATED 236 10^3/uL (150-450); RED BLOOD COUNT 2.83 10^6/uL (4.00-5.40); RED CELL DISTRIBUTION WIDTH 13.2 % (11.5-14.5); WHITE BLOOD COUNT 11.3 10^3/uL (4.0-10.0)
[2018-02-28 07:40] LABS: ALBUMIN 2.6 GM/DL (3.2-5.2); ALBUMIN/GLOBULIN RATIO 0.76 (1.00-1.93); ALKALINE PHOSPHATASE 54 U/L (45-117); ALT/SGPT 14 U/L (12-78); ANION GAP 9 MEQ/L (8-16); AST/SGOT 6 U/L (7-37); BILIRUBIN,TOTAL 0.3 MG/DL (0.2-1.0); BLOOD UREA NITROGEN 20 MG/DL (7-18); CALCIUM LEVEL 7.4 MG/DL (8.8-10.2); CARBON DIOXIDE LEVEL 24 MEQ/L (21-32); CHLORIDE LEVEL 110 MEQ/L (98-107); CREATININE FOR GFR 0.63 MG/DL (0.55-1.30); GLOMERULAR FILTRATION RATE > 60.0 (>45); GLUCOSE, FASTING 170 MG/DL (70-100); MAGNESIUM LEVEL 1.6 MG/DL (1.8-2.4); POTASSIUM SERUM 3.6 MEQ/L (3.5-5.1); SODIUM LEVEL 143 MEQ/L (136-145)
[2018-02-28] MEDS: cefTRIAXone SOD 1 GM in D5W MINI-BAG PLUS 50 ML IV (08:21)
[2018-02-28] MEDS: methylPREDNISolone INJ 40 MG/1 ML VIAL (J2920) IV (08:22)
[2018-02-28] MEDS: HumaLOG INSULIN (NovoLOG) PER UNIT SC ×5 (08:23→20:13)
[2018-02-28] MEDS: GABAPENTIN 300 MG CAP PO ×3 (08:23→20:12)
[2018-02-28] MEDS: FERROUS SULFATE 325MG TAB PO ×2 (08:23→20:12)
[2018-02-28] MEDS: PANTOPRAZOLE 40MG TAB (PROTONIX) PO (08:23)
[2018-02-28] MEDS: ENOXAPARIN 40 MG/0.4 ML SYRINGE (J1650) SC (08:23)
[2018-02-28] MEDS: VITAMIN D 1,000 INTERNATIONAL UNITS TABLET PO (08:23)
[2018-02-28] MEDS: CYANOCOBALAMIN 500 MCG TAB PO (08:24)
[2018-02-28] MEDS: MAG SULF 1GM/100ML (MAG RUN) 1 GM in APPROPRIATE DILUENT 1 EA IV ×2 (08:35→09:37)
[2018-02-28] MEDS: POTASSIUM CHLORIDE 10 MEQ SR TABLET PO (08:35)
[2018-02-28] MEDS: ACETAMINOPHEN TAB 650MG DOSE (2X325MG) PO (11:17)
[2018-02-28 12:07] LABS: BEDSIDE GLUCOSE 201 MG/DL (80-115)
[2018-02-28 16:55] LABS: BEDSIDE GLUCOSE 244 MG/DL (80-115)
[2018-02-28 20:16] LABS: BEDSIDE GLUCOSE 226 MG/DL (80-115)
[2018-02-28] MEDS: ATORVASTATIN 10 MG TAB PO (20:20)
[2018-03-01] MEDS: metroNIDAZOLE 500 MG in APPROPRIATE DILUENT 1 EA IV ×2 (01:05→10:32)
[2018-03-01] MEDS: MORPHINE 4 MG/ML 1ML VIAL/SYRINGE (J2270) IV (01:09)
[2018-03-01] MEDS: NORCO, ANEXSIA 5/325MG TABLET (HYDROcodone/ACETAMINOPHEN) PO (04:57)
[2018-03-01 06:49] LABS: BASO % 0.1 % (0.0-1.0); HEMATOCRIT 27.6 % (36.0-47.0); IMMATURE GRANULOCYTE % 1.4 % (0-3.0); LYMPH # 1.5 10^3/uL (1.5-4.5); LYMPH % 16.7 % (24.0-44.0); MEAN CORPUSCULAR HEMOGLOBIN 30.7 pg (27.0-33.0); MEAN CORPUSCULAR HGB CONC 32.6 g/dl (32.0-36.5); MEAN CORPUSCULAR VOLUME 94.2 fl (80.0-96.0); MONO # 0.5 10^3/uL (0.0-0.8); MONO % 5.3 % (0.0-5.0); NEUTROPHILS # 6.7 10^3/uL (1.8-7.7); NEUTROPHILS % 76.5 % (36.0-66.0); PLATELET COUNT, AUTOMATED 252 10^3/uL (150-450); RED BLOOD COUNT 2.93 10^6/uL (4.00-5.40); RED CELL DISTRIBUTION WIDTH 13.1 % (11.5-14.5); WHITE BLOOD COUNT 8.8 10^3/uL (4.0-10.0)
[2018-03-01 07:10] LABS: ALBUMIN 2.8 GM/DL (3.2-5.2); ALBUMIN/GLOBULIN RATIO 0.97 (1.00-1.93); ALKALINE PHOSPHATASE 57 U/L (45-117); ALT/SGPT 13 U/L (12-78); ANION GAP 9 MEQ/L (8-16); AST/SGOT 8 U/L (7-37); BILIRUBIN,TOTAL 0.3 MG/DL (0.2-1.0); BLOOD UREA NITROGEN 15 MG/DL (7-18); CALCIUM LEVEL 7.6 MG/DL (8.8-10.2); CARBON DIOXIDE LEVEL 23 MEQ/L (21-32); CHLORIDE LEVEL 110 MEQ/L (98-107); CREATININE FOR GFR 0.65 MG/DL (0.55-1.30); GLOMERULAR FILTRATION RATE > 60.0 (>45); GLUCOSE, FASTING 174 MG/DL (70-100); MAGNESIUM LEVEL 1.8 MG/DL (1.8-2.4); POTASSIUM SERUM 4.2 MEQ/L (3.5-5.1); SODIUM LEVEL 142 MEQ/L (136-145); TOTAL PROTEIN 5.7 GM/DL (6.4-8.2)
[2018-03-01] MEDS: HumaLOG INSULIN (NovoLOG) PER UNIT SC ×2 (08:47→12:55)
[2018-03-01] MEDS: MAG SULF 1GM/100ML (MAG RUN) 1 GM in APPROPRIATE DILUENT 1 EA IV (08:48)
[2018-03-01] MEDS: methylPREDNISolone INJ 40 MG/1 ML VIAL (J2920) IV (08:49)
[2018-03-01] MEDS: ENOXAPARIN 40 MG/0.4 ML SYRINGE (J1650) SC (08:49)
[2018-03-01] MEDS: FERROUS SULFATE 325MG TAB PO (08:50)
[2018-03-01] MEDS: PANTOPRAZOLE 40MG TAB (PROTONIX) PO (08:50)
[2018-03-01] MEDS: CYANOCOBALAMIN 500 MCG TAB PO (08:50)
[2018-03-01] MEDS: GABAPENTIN 300 MG CAP PO ×2 (08:50→15:42)
[2018-03-01] MEDS: VITAMIN D 1,000 INTERNATIONAL UNITS TABLET PO (08:50)
[2018-03-01] MEDS: cefTRIAXone SOD 1 GM in D5W MINI-BAG PLUS 50 ML IV (08:51)
[2018-03-01] MEDS: D5W/0.45% SODIUM CHLORIDE 1,000 ML IV (10:32)
[2018-03-01 12:07] LABS: BEDSIDE GLUCOSE 184 MG/DL (80-115)
[2018-03-01] MEDS: FUROSEMIDE 40 MG/4 ML VIAL (J1940) IV (12:54)
== END 2018-03-01 15:50 | disposition home or self-care (01) | DRG 245 ==
LOC: M ED INP 02-26 05:30 → M PED 02-26 10:03 → M ED 19:32
DX: K50.10 Crohn's disease of large intestine without complications (principal); E61.1 Iron deficiency; I10 Essential (primary) hypertension; E11.9 Type 2 diabetes mellitus without complications; K21.9 Gastro-esophageal reflux disease without esophagitis; M19.90 Unspecified osteoarthritis, unspecified site; E78.5 Hyperlipidemia, unspecified; Z96.0 Presence of urogenital implants; Z79.84 Long term (current) use of oral hypoglycemic drugs; Z88.1 Allergy status to other antibiotic agents; Z88.8 Allergy status to other drugs, medicaments and biological substances; Z87.891 Personal history of nicotine dependence; Z79.899 Other long term (current) drug therapy

== ENCOUNTER 2018-03-18 15:47 | Outpatient (CLI) | payer OTHER ==
[2018-03-18] MEDS: VEDOLIZUMAB 300 MG in NS 250 ML IV (16:44)
== END 2018-03-18 17:45 | disposition home or self-care (01) ==
LOC: M INFU 15:47
DX: K50.90 Crohn's disease, unspecified, without complications (principal); Z80.0 Family history of malignant neoplasm of digestive organs; Z80.3 Family history of malignant neoplasm of breast; Z79.899 Other long term (current) drug therapy; Z79.84 Long term (current) use of oral hypoglycemic drugs; Z88.1 Allergy status to other antibiotic agents; Z88.8 Allergy status to other drugs, medicaments and biological substances; Z91.018 Allergy to other foods
CPT/HCPCS: J3380

== ENCOUNTER 2018-04-01 10:38 | Outpatient (CLI) | payer OTHER ==
[2018-04-01] MEDS: VEDOLIZUMAB 300 MG in NS 250 ML IV (11:38)
== END 2018-04-01 12:30 | disposition home or self-care (01) ==
LOC: M INFU 10:38
DX: K50.90 Crohn's disease, unspecified, without complications (principal); Z79.899 Other long term (current) drug therapy; Z79.84 Long term (current) use of oral hypoglycemic drugs; Z88.8 Allergy status to other drugs, medicaments and biological substances; Z88.0 Allergy status to penicillin; Z88.1 Allergy status to other antibiotic agents; Z80.0 Family history of malignant neoplasm of digestive organs; Z80.3 Family history of malignant neoplasm of breast
CPT/HCPCS: J3380

== ENCOUNTER → 2018-05-16 | Outpatient (CLI) | payer OTHER ==
[2018-05-16 15:59] LABS: BASO # 0.1 10^3/uL (0.0-0.2); BASO % 0.6 % (0.0-1.0); EOS # 0.2 10^3/uL (0.0-0.50); EOS % 2.1 % (0.0-3.0); HEMATOCRIT 31.9 % (36.0-47.0); HEMOGLOBIN 10.7 g/dl (12.0-15.5); IMMATURE GRANULOCYTE % 0.2 % (0-3.0); LYMPH # 1.3 10^3/uL (1.5-4.5); LYMPH % 15.3 % (24.0-44.0); MEAN CORPUSCULAR HEMOGLOBIN 29.8 pg (27.0-33.0); MEAN CORPUSCULAR HGB CONC 33.5 g/dl (32.0-36.5); MEAN CORPUSCULAR VOLUME 88.9 fl (80.0-96.0); MONO # 0.7 10^3/uL (0.0-0.8); MONO % 7.6 % (0.0-5.0); NEUTROPHILS # 6.5 10^3/uL (1.8-7.7); NEUTROPHILS % 74.2 % (36.0-66.0); PLATELET COUNT, AUTOMATED 289 10^3/uL (150-450); RED BLOOD COUNT 3.59 10^6/uL (4.00-5.40); RED CELL DISTRIBUTION WIDTH 14.4 % (11.5-14.5); WHITE BLOOD COUNT 8.7 10^3/uL (4.0-10.0)
== END ==
LOC: M LAB 15:18
DX: M54.9 Dorsalgia, unspecified (principal)
CPT/HCPCS: 85025

== ENCOUNTER → 2018-05-16 | Outpatient (REF) | payer OTHER ==
[2018-05-17 11:19] LABS: BACTERIA, URINE AUTO NEGATIVE (NEGATIVE); MUCUS, URINE SMALL (NEGATIVE); RBC, URINE AUTO 3 /HPF (0-3); SQUAMOUS EPITHELIAL CELL UR AU 0 /HPF (0-6); WBC, URINE AUTO 4 /HPF (0-3)
== END ==
LOC: M WUC 11:06
DX: R30.0 Dysuria (principal)

== ENCOUNTER → 2018-05-20 | Outpatient (CLI) | payer OTHER | LOC: M WHC 09:59 | DX: K50.00 Crohn's disease of small intestine without complications (principal) | CPT/HCPCS: 77080 ==

== ENCOUNTER 2018-06-16 13:22 | Inpatient (IN) | payer OTHER ==
[2018-06-16] MEDS: GASTROGRAFIN SOLUTION 30ML PO ×2 (14:06→15:36)
[2018-06-16 14:23] LABS: BASO % 0.3 % (0.0-1.0); EOS # 0.1 10^3/uL (0.0-0.50); HEMATOCRIT 33.8 % (36.0-47.0); HEMOGLOBIN 11.8 g/dl (12.0-15.5); IMMATURE GRANULOCYTE % 0.4 % (0-3.0); LYMPH # 1.4 10^3/uL (1.5-4.5); LYMPH % 12.6 % (24.0-44.0); MEAN CORPUSCULAR HEMOGLOBIN 30.9 pg (27.0-33.0); MEAN CORPUSCULAR HGB CONC 34.9 g/dl (32.0-36.5); MEAN CORPUSCULAR VOLUME 88.5 fl (80.0-96.0); MONO # 0.7 10^3/uL (0.0-0.8); MONO % 6.1 % (0.0-5.0); NEUTROPHILS # 8.9 10^3/uL (1.8-7.7); NEUTROPHILS % 79.6 % (36.0-66.0); PLATELET COUNT, AUTOMATED 325 10^3/uL (150-450); RED BLOOD COUNT 3.82 10^6/uL (4.00-5.40); RED CELL DISTRIBUTION WIDTH 14.3 % (11.5-14.5); WHITE BLOOD COUNT 11.2 10^3/uL (4.0-10.0)
[2018-06-16] MEDS: NS 500 ML IV (14:30)
[2018-06-16] MEDS: ONDANSETRON 4MG/2ML VIAL (J2405) IV ×2 (14:31→20:22)
[2018-06-16] MEDS: MORPHINE 4 MG/ML 1ML VIAL/SYRINGE (J2270) IV ×4 (14:40→22:18)
[2018-06-16 14:46] LABS: ALBUMIN 4.3 GM/DL (3.2-5.2); ALBUMIN/GLOBULIN RATIO 1.59 (1.00-1.93); ALKALINE PHOSPHATASE 85 U/L (45-117); ALT/SGPT 23 U/L (12-78); ANION GAP 14 MEQ/L (8-16); AST/SGOT 22 U/L (7-37); BILIRUBIN,DIRECT 0.2 MG/DL (0.0-0.2); BLOOD UREA NITROGEN 13 MG/DL (7-18); CALCIUM LEVEL 10.1 MG/DL (8.8-10.2); CARBON DIOXIDE LEVEL 23 MEQ/L (21-32); CHLORIDE LEVEL 102 MEQ/L (98-107); CREATININE FOR GFR 0.75 MG/DL (0.55-1.30); GLOMERULAR FILTRATION RATE > 60.0 (>45); GLUCOSE, FASTING 157 MG/DL (70-100); LIPASE 93 U/L (73-393); POTASSIUM SERUM 3.5 MEQ/L (3.5-5.1); SODIUM LEVEL 139 MEQ/L (136-145)
[2018-06-16 14:58] LABS: LACTIC ACID SEPSIS PROTOCOL 4.3 MMOL/L (0.4-2.0)
[2018-06-16] MEDS: NS 1,000 ML IV ×2 (15:21→18:30)
[2018-06-16] MEDS: PIPERACILLIN/TAZOBACTAM SOD 4.5 GM in D5W MINI-BAG PLUS 50 ML IV (15:42)
[2018-06-16] MEDS ORDERED: ISOVUE-370 76% 100ML VIAL (Q9967) As Ordered (16:49)
[2018-06-16] MEDS ORDERED: MORPHINE 4 MG/ML 1ML VIAL/SYRINGE (J2270) IV (17:45)
[2018-06-16] MEDS ORDERED: NS 1,000 ML IV (18:16)
[2018-06-16] MEDS ORDERED: ACETAMINOPHEN TAB 650MG DOSE (2X325MG) PO (18:30)
[2018-06-16] MEDS ORDERED: SIMETHICONE 80 MG CHEW TAB PO (18:45)
[2018-06-16] MEDS: methylPREDNISolone INJ 40 MG/1 ML VIAL (J2920) IV (21:16)
[2018-06-16] MEDS: GABAPENTIN 300 MG CAP PO (21:17)
[2018-06-16] MEDS: FERROUS SULFATE 325MG TAB PO (21:17)
[2018-06-16] MEDS: ATORVASTATIN 10 MG TAB PO (22:18)
[2018-06-16 23:33] LABS: LACTIC ACID SEPSIS PROTOCOL 1.9 MMOL/L (0.4-2.0)
[2018-06-17] MEDS: NS 1,000 ML IV ×3 (00:40→20:09)
[2018-06-17] MEDS: MORPHINE 4 MG/ML 1ML VIAL/SYRINGE (J2270) IV ×6 (02:21→23:37)
[2018-06-17] MEDS: ONDANSETRON 4MG/2ML VIAL (J2405) IV ×4 (02:22→23:37)
[2018-06-17 06:50] LABS: BASO % 0.1 % (0.0-1.0); EOS % 0.1 % (0.0-3.0); HEMATOCRIT 30.1 % (36.0-47.0); HEMOGLOBIN 10.3 g/dl (12.0-15.5); IMMATURE GRANULOCYTE % 0.7 % (0-3.0); LYMPH # 0.6 10^3/uL (1.5-4.5); LYMPH % 5.6 % (24.0-44.0); MEAN CORPUSCULAR HEMOGLOBIN 30.7 pg (27.0-33.0); MEAN CORPUSCULAR HGB CONC 34.2 g/dl (32.0-36.5); MEAN CORPUSCULAR VOLUME 89.6 fl (80.0-96.0); MONO # 0.2 10^3/uL (0.0-0.8); MONO % 1.9 % (0.0-5.0); NEUTROPHILS # 9.6 10^3/uL (1.8-7.7); NEUTROPHILS % 91.6 % (36.0-66.0); PLATELET COUNT, AUTOMATED 292 10^3/uL (150-450); RED BLOOD COUNT 3.36 10^6/uL (4.00-5.40); RED CELL DISTRIBUTION WIDTH 14.4 % (11.5-14.5); WHITE BLOOD COUNT 10.5 10^3/uL (4.0-10.0)
[2018-06-17 07:19] LABS: ANION GAP 9 MEQ/L (8-16); BLOOD UREA NITROGEN 10 MG/DL (7-18); CALCIUM LEVEL 8.2 MG/DL (8.8-10.2); CARBON DIOXIDE LEVEL 26 MEQ/L (21-32); CHLORIDE LEVEL 106 MEQ/L (98-107); GLOMERULAR FILTRATION RATE > 60.0 (>45); GLUCOSE, FASTING 187 MG/DL (70-100); SODIUM LEVEL 141 MEQ/L (136-145)
[2018-06-17] MEDS: methylPREDNISolone INJ 40 MG/1 ML VIAL (J2920) IV ×2 (08:49→20:08)
[2018-06-17] MEDS: ENALAPRIL MALEATE 10 MG TAB PO (08:52)
[2018-06-17] MEDS: GABAPENTIN 300 MG CAP PO ×3 (08:52→20:08)
[2018-06-17] MEDS: FERROUS SULFATE 325MG TAB PO ×2 (08:52→20:08)
[2018-06-17] MEDS: PANTOPRAZOLE 40MG TAB (PROTONIX) PO (08:52)
[2018-06-17] MEDS: VITAMIN D 1,000 INTERNATIONAL UNITS TABLET PO (08:52)
[2018-06-17] MEDS: CYANOCOBALAMIN 500 MCG TAB PO (08:53)
[2018-06-17] MEDS: hydroCHLOROthiazide 25 MG TAB PO (08:53)
[2018-06-17 12:52] LABS: ESTIMATED AVERAGE GLUCOSE 128 MG/DL (60-110); HEMOGLOBIN A1c 6.1 %
[2018-06-17] MEDS: ATORVASTATIN 10 MG TAB PO (20:08)
[2018-06-18] MEDS: MORPHINE 4 MG/ML 1ML VIAL/SYRINGE (J2270) IV (03:58)
[2018-06-18] MEDS: NS 1,000 ML IV (03:58)
[2018-06-18] MEDS: ONDANSETRON 4MG/2ML VIAL (J2405) IV (03:58)
[2018-06-18] MEDS: VITAMIN D 1,000 INTERNATIONAL UNITS TABLET PO (08:48)
[2018-06-18] MEDS: methylPREDNISolone INJ 40 MG/1 ML VIAL (J2920) IV (08:48)
[2018-06-18] MEDS: FERROUS SULFATE 325MG TAB PO ×2 (08:49→20:30)
[2018-06-18] MEDS: GABAPENTIN 300 MG CAP PO ×3 (08:49→20:30)
[2018-06-18] MEDS: PANTOPRAZOLE 40MG TAB (PROTONIX) PO (08:49)
[2018-06-18] MEDS: CYANOCOBALAMIN 500 MCG TAB PO (08:49)
[2018-06-18] MEDS: hydroCHLOROthiazide 25 MG TAB PO (08:50)
[2018-06-18] MEDS: ENALAPRIL MALEATE 10 MG TAB PO (08:50)
[2018-06-18] MEDS: PERCOCET 5MG/325MG TAB PO ×2 (10:59→20:31)
[2018-06-18] MEDS: predniSONE 20 MG TAB PO (12:53)
[2018-06-18] MEDS: ATORVASTATIN 10 MG TAB PO (20:30)
[2018-06-19] MEDS: PERCOCET 5MG/325MG TAB PO ×2 (03:02→08:59)
[2018-06-19 08:27] LABS: BASO % 0.1 % (0.0-1.0); EOS % 0.1 % (0.0-3.0); HEMOGLOBIN 9.9 g/dl (12.0-15.5); IMMATURE GRANULOCYTE % 1.2 % (0-3.0); LYMPH # 1.4 10^3/uL (1.5-4.5); LYMPH % 16.7 % (24.0-44.0); MEAN CORPUSCULAR HEMOGLOBIN 30.5 pg (27.0-33.0); MEAN CORPUSCULAR VOLUME 92.3 fl (80.0-96.0); MONO # 0.6 10^3/uL (0.0-0.8); MONO % 6.9 % (0.0-5.0); NEUTROPHILS # 6.2 10^3/uL (1.8-7.7); PLATELET COUNT, AUTOMATED 253 10^3/uL (150-450); RED BLOOD COUNT 3.25 10^6/uL (4.00-5.40); RED CELL DISTRIBUTION WIDTH 14.2 % (11.5-14.5); WHITE BLOOD COUNT 8.3 10^3/uL (4.0-10.0)
[2018-06-19 08:50] LABS: ANION GAP 6 MEQ/L (8-16); BLOOD UREA NITROGEN 14 MG/DL (7-18); CALCIUM LEVEL 8.8 MG/DL (8.8-10.2); CARBON DIOXIDE LEVEL 31 MEQ/L (21-32); CHLORIDE LEVEL 103 MEQ/L (98-107); CREATININE FOR GFR 0.68 MG/DL (0.55-1.30); GLOMERULAR FILTRATION RATE > 60.0 (>45); GLUCOSE, FASTING 148 MG/DL (70-100); POTASSIUM SERUM 3.8 MEQ/L (3.5-5.1); SODIUM LEVEL 140 MEQ/L (136-145)
[2018-06-19] MEDS: hydroCHLOROthiazide 25 MG TAB PO (08:57)
[2018-06-19] MEDS: CYANOCOBALAMIN 500 MCG TAB PO (08:57)
[2018-06-19] MEDS: FERROUS SULFATE 325MG TAB PO (08:58)
[2018-06-19] MEDS: PANTOPRAZOLE 40MG TAB (PROTONIX) PO (08:58)
[2018-06-19] MEDS: ENALAPRIL MALEATE 10 MG TAB PO (08:58)
[2018-06-19] MEDS: VITAMIN D 1,000 INTERNATIONAL UNITS TABLET PO (08:58)
[2018-06-19] MEDS: GABAPENTIN 300 MG CAP PO (08:58)
[2018-06-19] MEDS: predniSONE 20 MG TAB PO (08:59)
== END 2018-06-19 12:50 | disposition home or self-care (01) | DRG 245 ==
LOC: M MSPAV 06-18 16:51 → M ED 13:22 → M ED INP 18:08 → M MS4PR 21:37
DX: K50.00 Crohn's disease of small intestine without complications (principal); I10 Essential (primary) hypertension; E78.5 Hyperlipidemia, unspecified; E11.9 Type 2 diabetes mellitus without complications; Z79.899 Other long term (current) drug therapy; Z79.52 Long term (current) use of systemic steroids; Z88.1 Allergy status to other antibiotic agents; Z87.891 Personal history of nicotine dependence; Z87.442 Personal history of urinary calculi; Z88.8 Allergy status to other drugs, medicaments and biological substances; Z91.018 Allergy to other foods; Z96.0 Presence of urogenital implants; Z79.84 Long term (current) use of oral hypoglycemic drugs

== ENCOUNTER → 2018-06-20 | Outpatient (CLI) | payer OTHER ==
[2018-06-20 10:00] LABS: BASO % 0.2 % (0.0-1.0); EOS % 0.2 % (0.0-3.0); HEMATOCRIT 32.9 % (36.0-47.0); HEMOGLOBIN 11.4 g/dl (12.0-15.5); IMMATURE GRANULOCYTE % 1.2 % (0-3.0); LYMPH # 1.1 10^3/uL (1.5-4.5); LYMPH % 11.9 % (24.0-44.0); MEAN CORPUSCULAR HEMOGLOBIN 31.1 pg (27.0-33.0); MEAN CORPUSCULAR HGB CONC 34.7 g/dl (32.0-36.5); MEAN CORPUSCULAR VOLUME 89.6 fl (80.0-96.0); MONO # 0.5 10^3/uL (0.0-0.8); MONO % 5.3 % (0.0-5.0); NEUTROPHILS # 7.4 10^3/uL (1.8-7.7); NEUTROPHILS % 81.2 % (36.0-66.0); PLATELET COUNT, AUTOMATED 250 10^3/uL (150-450); RED BLOOD COUNT 3.67 10^6/uL (4.00-5.40); RED CELL DISTRIBUTION WIDTH 14.9 % (11.5-14.5); WHITE BLOOD COUNT 9.1 10^3/uL (4.0-10.0)
[2018-06-20 10:34] LABS: ALBUMIN/GLOBULIN RATIO 1.54 (1.00-1.93); ALKALINE PHOSPHATASE 71 U/L (45-117); ALT/SGPT 27 U/L (12-78); ANION GAP 10 MEQ/L (8-16); AST/SGOT 27 U/L (7-37); BILIRUBIN,TOTAL 0.6 MG/DL (0.2-1.0); BLOOD UREA NITROGEN 16 MG/DL (7-18); C REACTIVE PROTEIN QUANTITATIV < 0.30 MG/DL (0.00-0.30); CALCIUM LEVEL 9.7 MG/DL (8.8-10.2); CARBON DIOXIDE LEVEL 30 MEQ/L (21-32); CHLORIDE LEVEL 97 MEQ/L (98-107); CREATININE FOR GFR 0.77 MG/DL (0.55-1.30); GLOMERULAR FILTRATION RATE > 60.0 (>45); GLUCOSE, FASTING 191 MG/DL (70-100); IRON (FE) 46 UG/DL (50-170); POTASSIUM SERUM 4.2 MEQ/L (3.5-5.1); SODIUM LEVEL 137 MEQ/L (136-145); TOTAL IRON BINDING CAPACITY 382 UG/DL (250-450); TOTAL PROTEIN 6.6 GM/DL (6.4-8.2)
[2018-06-22 10:14] LABS: FOLATE 17.7 NG/ML
== END ==
LOC: M LAB 09:04
DX: K50.00 Crohn's disease of small intestine without complications (principal)
CPT/HCPCS: 82746

== ENCOUNTER 2018-06-24 07:00 | Outpatient (CLI) | payer OTHER ==
[2018-06-24] MEDS: VEDOLIZUMAB 300 MG in NS 250 ML IV (07:50)
== END 2018-06-24 08:35 | disposition home or self-care (01) ==
LOC: M INFU 07:00
DX: K50.90 Crohn's disease, unspecified, without complications (principal); Z79.899 Other long term (current) drug therapy; Z88.8 Allergy status to other drugs, medicaments and biological substances
CPT/HCPCS: J3380

== ENCOUNTER → 2018-07-08 | Outpatient (CLI) | payer OTHER | LOC: M RAD 14:06 | DX: N20.0 Calculus of kidney (principal) | CPT/HCPCS: 74019 ==

== ENCOUNTER → 2018-07-22 | Outpatient (CLI) | payer OTHER ==
[2018-07-22 10:14] LABS: BASO % 0.5 % (0.0-1.0); EOS # 0.1 10^3/uL (0.0-0.50); EOS % 2.1 % (0.0-3.0); HEMATOCRIT 31.2 % (36.0-47.0); HEMOGLOBIN 10.9 g/dl (12.0-15.5); IMMATURE GRANULOCYTE % 1.3 % (0-3.0); LYMPH # 1.5 10^3/uL (1.5-4.5); MEAN CORPUSCULAR HEMOGLOBIN 30.9 pg (27.0-33.0); MEAN CORPUSCULAR HGB CONC 34.9 g/dl (32.0-36.5); MEAN CORPUSCULAR VOLUME 88.4 fl (80.0-96.0); MONO # 0.5 10^3/uL (0.0-0.8); MONO % 7.3 % (0.0-5.0); NEUTROPHILS % 64.8 % (36.0-66.0); PLATELET COUNT, AUTOMATED 287 10^3/uL (150-450); RED BLOOD COUNT 3.53 10^6/uL (4.00-5.40); RED CELL DISTRIBUTION WIDTH 13.5 % (11.5-14.5); WHITE BLOOD COUNT 6.2 10^3/uL (4.0-10.0)
[2018-07-22 10:42] LABS: ALBUMIN 3.7 GM/DL (3.2-5.2); ALBUMIN/GLOBULIN RATIO 1.42 (1.00-1.93); ALKALINE PHOSPHATASE 76 U/L (45-117); ALT/SGPT 22 U/L (12-78); ANION GAP 7 MEQ/L (8-16); AST/SGOT 14 U/L (7-37); BILIRUBIN,TOTAL 0.7 MG/DL (0.2-1.0); BLOOD UREA NITROGEN 12 MG/DL (7-18); C REACTIVE PROTEIN QUANTITATIV 0.37 MG/DL (0.00-0.30); CALCIUM LEVEL 8.9 MG/DL (8.8-10.2); CARBON DIOXIDE LEVEL 32 MEQ/L (21-32); CHLORIDE LEVEL 103 MEQ/L (98-107); CREATININE FOR GFR 0.66 MG/DL (0.55-1.30); GLOMERULAR FILTRATION RATE > 60.0 (>45); GLUCOSE, FASTING 120 MG/DL (70-100); POTASSIUM SERUM 3.5 MEQ/L (3.5-5.1); SODIUM LEVEL 142 MEQ/L (136-145); TOTAL PROTEIN 6.3 GM/DL (6.4-8.2)
[2018-07-27 08:42] LABS: VDZ Concentration 15.1 ug/mL
== END ==
LOC: M LAB 09:28
DX: K50.018 Crohn's disease of small intestine with other complication (principal); N20.0 Calculus of kidney
CPT/HCPCS: 74018

== ENCOUNTER → 2018-07-22 | Outpatient (CLI) | payer OTHER ==
[2018-07-22 10:28] LABS: ESTIMATED AVERAGE GLUCOSE 151 MG/DL (60-110); HEMOGLOBIN A1c 6.9 %
[2018-07-22 10:42] LABS: ALBUMIN 3.6 GM/DL (3.2-5.2); ALBUMIN/GLOBULIN RATIO 1.38 (1.00-1.93); ALKALINE PHOSPHATASE 73 U/L (45-117); ALT/SGPT 21 U/L (12-78); ANION GAP 6 MEQ/L (8-16); AST/SGOT 19 U/L (7-37); BILIRUBIN,TOTAL 0.7 MG/DL (0.2-1.0); BLOOD UREA NITROGEN 13 MG/DL (7-18); CALCIUM LEVEL 8.9 MG/DL (8.8-10.2); CARBON DIOXIDE LEVEL 32 MEQ/L (21-32); CHLORIDE LEVEL 104 MEQ/L (98-107); CHOLESTEROL LEVEL 114 MG/DL (<200); CHOLESTEROL RISK RATIO 3.352 (<5); CREATININE FOR GFR 0.69 MG/DL (0.55-1.30); GLOMERULAR FILTRATION RATE > 60.0 (>45); GLUCOSE, FASTING 117 MG/DL (70-100); HDL CHOLESTEROL 34 MG/DL (>40); LDL CHOLESTEROL 48 MG/DL (<100); NON-HDL-C 80 MG/DL; POTASSIUM SERUM 3.6 MEQ/L (3.5-5.1); SODIUM LEVEL 142 MEQ/L (136-145); TOTAL PROTEIN 6.2 GM/DL (6.4-8.2); TRIGLYCERIDES LEVEL 161 MG/DL (<150)
[2018-07-22 11:08] LABS: MALB URINE SIEMENS 81.7 MG/L; MAU/CREAT RATIO 66.4 MCG/MG (0.0-30.0)
== END ==
LOC: M LAB 09:24
DX: E11.69 Type 2 diabetes mellitus with other specified complication (principal)
CPT/HCPCS: 83036

== ENCOUNTER 2018-09-16 06:50 | Outpatient (CLI) | payer OTHER ==
[~2018-09-16] VITALS: Ht 144.8 cm; Wt 75.1 kg
[~2018-09-16 06:50] MED LIST changes: +BUDE3CAP PO; +CEFD1CAP8 PO; +ENTY1INJ IV; +FLAG500T PO; -GABA-282 PO; +GABA-843 PO; +INFL10VL IV; +LIDO2JELLY TOP; +MELO15TA28 PO; -MELO15TA4 PO; -PANT20TA PO; +PANT20TA2 PO; -PANT40TA2 PO; +PANT40TA3 PO; +PERCOCET PO; +POTA10808 PO; -POTA10TAB PO; +POTASOL PO; +PRED10TA2 PO; +PRED20TA PO; +SIME80TA PO; +VITA10002 PO; +VITA100066 PO; +ZOFR4TAB14 PO; -ZOFR4TAB3 PO; +ZOFR8TAB24 PO; +[UNRECOGNIZED DRUG - REMARK]; +remicade IV
[2018-09-16 06:55] VITALS: BP 158/82
[2018-09-16] MEDS ORDERED: USTEKINUMAB 390 MG in NS 172 ML IV ONE (07:00)
[2018-09-16] MEDS ORDERED: FILTER 1.2 MICRON (ADULT TPN/MANNITOL/REMICADE) XX ONE (07:37)
[2018-09-16 08:00] VITALS: BP 142/68
[2018-09-16 09:35] VITALS: BP 152/70
== END 2018-09-16 09:50 | disposition home or self-care (01) ==
LOC: M INFU 06:50
PROVIDERS: ATTEND Internal Medicine Gastroenterology
DX: K50.90 Crohn's disease, unspecified, without complications (principal); Z88.8 Allergy status to other drugs, medicaments and biological substances; Z88.1 Allergy status to other antibiotic agents; Z88.5 Allergy status to narcotic agent
CPT/HCPCS: 96365; 96366; J3358

== ENCOUNTER 2018-09-26 07:55 | Inpatient (IN) | payer OTHER ==
[~2018-09-26] VITALS: Ht 144.8 cm; Wt 75.4 kg
[2018-09-26] MEDS ORDERED: NS 1,000 ML IV ONE (08:15)
[2018-09-26] MEDS ORDERED: ONDANSETRON 4MG/2ML VIAL (J2405) IV ONE ×2 (08:15→10:00)
[2018-09-26] MEDS ORDERED: MORPHINE 4 MG/ML 1ML VIAL/SYRINGE (J2270) IV ONE ×2 (08:15→10:00)
[2018-09-26 08:51] LABS: ALBUMIN 4.1 GM/DL (3.2-5.2); ALT/SGPT 35 U/L (12-78); BILIRUBIN,DIRECT 0.2 MG/DL (0.0-0.2); BILIRUBIN,TOTAL 0.7 MG/DL (0.2-1.0); BLOOD UREA NITROGEN 15 MG/DL (7-18); CALCIUM LEVEL 9.3 MG/DL (8.8-10.2); CARBON DIOXIDE LEVEL 23 MEQ/L (21-32); CHLORIDE LEVEL 101 MEQ/L (98-107); GLOMERULAR FILTRATION RATE > 60.0 (>45); GLUCOSE, FASTING 185 MG/DL (70-100); LIPASE 141 U/L (73-393); POTASSIUM SERUM 3.9 MEQ/L (3.5-5.1); SODIUM LEVEL 136 MEQ/L (136-145); TOTAL PROTEIN 7.2 GM/DL (6.4-8.2)
[2018-09-26] MEDS: GASTROGRAFIN SOLUTION 30ML PO SCH ×2 (09:04→09:30)
[2018-09-26 09:15] LABS: BASO % 0.5 % (0.0-1.0); EOS # 0.1 10^3/uL (0.0-0.50); EOS % 0.6 % (0.0-3.0); HEMATOCRIT 30.2 % (36.0-47.0); LYMPH # 0.7 10^3/uL (1.5-4.5); LYMPH % 8.4 % (24.0-44.0); MEAN CORPUSCULAR HEMOGLOBIN 30.5 pg (27.0-33.0); MEAN CORPUSCULAR HGB CONC 33.1 g/dl (32.0-36.5); MEAN CORPUSCULAR VOLUME 92.1 fl (80.0-96.0); MONO # 0.5 10^3/uL (0.0-0.8); MONO % 5.4 % (0.0-5.0); NEUTROPHILS # 7.5 10^3/uL (1.8-7.7); NEUTROPHILS % 84.3 % (36.0-66.0); PLATELET COUNT, AUTOMATED 254 10^3/uL (150-450); RED BLOOD COUNT 3.28 10^6/uL (4.00-5.40); WHITE BLOOD COUNT 8.9 10^3/uL (4.0-10.0)
[2018-09-26] MEDS ORDERED: ISOVUE-370 76% 100ML VIAL (Q9967) As Ordered ONE (10:03)
--- NOTE | 2018-09-26 11:31 | REP ---
CT ABDOMEN AND PELVIS WITH ORAL AND IV CONTRAST: TECHNIQUE: Axial contrast enhanced images from the lung bases to the pubic symphysis using 100 mL Isovue 370 intravenous contrast material with multiplanar reformations. COMPARISON: 06/16/2018. Visualized lung bases demonstrate minor fibroatelectatic changes. The liver, gallbladder, spleen, adrenals, and pancreas are unremarkable. Intrarenal calculus in the lower pole of the right kidney measures 6 mm. There are two intrarenal calculi of the left kidney, one in the upper pole measuring 4 mm in diameter and one in the lower pole measuring 3 mm in diameter. There is a small cyst in the mid left kidney. There is no hydronephrosis bilaterally. There is no abdominal aortic aneurysm. There is no adenopathy. There is no free air. Diffuse thickening of the distal ileum is noted. Just proximal to this there are moderately dilated small bowel loops with surrounding mild mesenteric edema/inflammation. Findings are consistent with some degree of small bowel obstruction distally. No pelvic mass is seen. There are scattered diverticula of the left colon. There are degenerative changes of the spine. IMPRESSION: Thickening of distal ileum with moderately dilated small bowel loops just proximal to this, with a transition point in the right lower quadrant. Findings are consistent with some degree of small bowel obstruction. There is mild mesenteric edema/inflammation in the right lower quadrant laterally. No free air. Electronically Signed by Nikolas Wilson MD 09/26/2018 07:23 P
[2018-09-26] MEDS ORDERED: PROMETHAZINE INJ 25 MG/ML VIAL (J2550) IM ONE (12:45)
[2018-09-26] MEDS ORDERED: MORPHINE 2 MG/ML 1ML SYRINGE (J2270) IV ONE (12:45)
[2018-09-26] MEDS ORDERED: STEL130I IV (13:37)
[2018-09-26] MEDS ORDERED: ACETAMINOPHEN TAB 650MG DOSE (2X325MG) PO PRN (15:30)
[2018-09-26] MEDS ORDERED: DEXTROSE 50% 50 ML SYRINGE IV PRN (15:45)
[2018-09-26] MEDS ORDERED: GLUCAGON FOR INJ 1 MG VIAL (J1610) SC PRN (15:45)
[2018-09-26] MEDS ORDERED: GLUCOSE 4 GM CHEW TABLET PO PRN (15:45)
[2018-09-26] MEDS: GABAPENTIN 300 MG CAP PO SCH ×3 (16:00→20:33)
[2018-09-26] MEDS: NS 1,000 ML IV SCH (16:00)
[2018-09-26 16:35] VITALS: BP 186/102
--- NOTE | 2018-09-26 16:42 | HPEPDOC ---
[facility] Medical History & Physical Date of Admission Sep 26, 2018 History and Physical CHIEF COMPLAINT: [ABD PAIN AND NAUSEA ] HISTORY OF PRESENT ILLNESS: 62 y/o women with past medical history of Crohns disease who presented to the ED for abd pain, nausea and dry heave that started this morning. The pain is located in the upper quadrants of the abdomen. It is nonradiating 8/10 with bloating sensation. She denied fever, chills, chest pain, sob, headache, dizziness or weakness. Patient received her first infusion of sterlara on September [address] Martinez - contact [phone]. 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 IV drug use: [denied] FAMILY HISTORY: noncontributory ALLERGIES: Please see below. HOME MEDICATIONS: Please see below. REVIEW OF SYSTEMS: All 14 points ROS is negative except what's stated in HPI PHYSICAL EXAMINATION: GEN: no acute distress HEENT : no lymphadenopathy, PERRLA , no oropharyngeal erythema or exudates CVS: Normal S1/s2, no murmurs, rubs or gallops, RESP: Lungs are clear to auscultation bilaterally, no crackles, wheezes or rhonchi Abd: soft, upper abdominal tenderness without guarding, nondistended, + BS MSK: full ROM, 5/5 strength in all extremities Integumentary: no rash or bruises Neuro: AOAx3, no focal deficit psych: normal mood, good judgement and cooperative LABORATORY DATA: See below. IMAGING: [IMPRESSION: Thickening of distal ileum with moderately dilated small bowel loops just proximal to this with a transition point in the right lower quadrant. Findings are consistent with some degree of small bowel obstruction. There is mild mesenteric edema/inflammation in the right lower quadrant laterally. No free air. ASSESSMENT: crohn flare HTN HLD DM2 PLAN: I discussed the case with Dr. Martinez who recommended 40mg iv solumedrol daily, GI consult and outpt follow up after dc f/u GI consult surgery was contacted by ED- nothing to do at this time NPO for now prn pain meds bowel regimen ivf - monitor resp status ISS hold metformin, but c/w other home meds hypoglycemic protocol c/w home bp//HLD meds dvt ppx gi ppx full code, from home, no svc Vital Signs Vital Signs Date Time Temp Pulse Resp B/P (MAP) Pulse Ox O2 Delivery O2 Flow Rate FiO2 09/26/18 13:49 98.7 105 14 134/71 (92) 93 Room Air Laboratory Data Labs 24H Laboratory Tests 2 09/26/18 08:10: Anion Gap 12, Glomerular Filtration Rate > 60.0, Calcium Level 9.3, Aspartate Amino Transf (AST/SGOT) 44H, Alanine Aminotransferase (ALT/SGPT) 35, Alkaline Phosphatase 78, Total Bilirubin 0.7, Direct Bilirubin 0.2, Total Protein 7.2, Albumin 4.1, Albumin/Globulin Ratio 1.32, Lipase 141 09/26/18 09:06: Immature Granulocyte % (Auto) 0.8, White Blood Count 8.9, Red Blood Count 3.28L, Hemoglobin 10.0L, Hematocrit 30.2L, Mean Corpuscular Volume 92.1, Mean Corpuscular Hemoglobin 30.5, Mean Corpuscular Hemoglobin Concent 33.1, Red Cell Distribution Width 14.4, Platelet Count 254, Neutrophils (%) (Auto) 84.3H, Lymphocytes (%) (Auto) 8.4L, Monocytes (%) (Auto) 5.4H, Eosinophils (%) (Auto) 0.6, Basophils (%) (Auto) 0.5, Neutrophils # (Auto) 7.5, Lymphocytes # (Auto) 0.7L, Monocytes # (Auto) 0.5, Eosinophils # (Auto) 0.1, Basophils # (Auto) 0.0, Nucleated Red Blood Cells % (auto) 0.0 09/26/18 09:17: Urine Color YELLOW, Urine Appearance CLEAR, Urine pH 7.0, Urine Specific [place] 1.016, Urine Protein 2+H, Urine Glucose (UA) NEGATIVE, Urine Ketones TRACEH, Urine Blood NEGATIVE, Urine Nitrite NEGATIVE, Urine Bilirubin NEGATIVE, Urine Urobilinogen 0.2, Urine Leukocyte Esterase NEGATIVE, Urine WBC (Auto) 1, Urine RBC (Auto) 0, Urine Hyaline Casts (Auto) 0, Urine Bacteria (Auto) NEGATIVE, Urine Squamous Epithelial Cells 0, Urine Sperm (Auto) CBC/BMP Laboratory Tests 09/26/18 08:10 09/26/18 09:06 Red Blood Count 3.28 L, Mean Corpuscular Volume 92.1, Mean Corpuscular Hemoglobin 30.5, Mean Corpuscular Hemoglobin Concent 33.1, Red Cell Distribution Width 14.4, Neutrophils (%) (Auto) 84.3 H, Lymphocytes (%) (Auto) 8.4 L, Monocytes (%) (Auto) 5.4 H, Eosinophils (%) (Auto) 0.6, Basophils (%) (Auto) 0.5, Neutrophils # (Auto) 7.5, Lymphocytes # (Auto) 0.7 L, Monocytes # (Auto) 0.5, Eosinophils # (Auto) 0.1, Basophils # (Auto) 0.0 Home Medications Scheduled (Calcium Citrate + 315-200 mg-Unit) 1 Tab Tab, 1 TAB PO BID (Potassium Citrate/Citric 1100-334 mg/5Ml) 1 Yamilet Yamilet, 10 ML PO PCHS (Stelara) Unknown Strength Inj, Unknown Dose IV ASDIRECTED RECEIVES EVERY 8 WEEKS Amlodipine Besylate (Norvasc) 2.5 Mg Tab, 2.5 MG PO DAILY Atorvastatin Calcium (Atorvastatin Calcium) 10 Mg Tab, 10 MG PO QHS Cholecalciferol (Vitamin D) 1,000 Unit Tab, 1,000 UNIT PO DAILY Cimicifuga [place] (Black Coh (Remifemin) 20 Mg Tab, 20 MG PO BID Cyanocobalamin (Vitamin B-12) 1,000 Mcg Tab, 1,000 MCG PO DAILY Enalapril Maleate (Enalapril Maleate) 20 Mg Tab, 20 MG PO DAILY Ferrous Sulfate (Ferrous Sulfate) 325 Mg Tab, 325 MG PO BID Gabapentin (Gabapentin) 300 Mg Cap, 300 MG PO TID Hydrochlorothiazide (Hydrochlorothiazide) 25 Mg Tab, 25 MG PO DAILY Magnesium Oxide (Magnesium) 250 Mg Tab, 250 MG PO DAILY Meloxicam (Meloxicam) 15 Mg Tab, 15 MG PO DAILY Metformin Hydrochloride (Metformin HCl) 1,000 Mg Tab, 1,000 MG PO BIDWM Pantoprazole Sodium (Pantoprazole Sodium) 40 Mg Tab, 40 MG PO DAILY Scheduled PRN Simethicone (Simethicone) 80 Mg Chew, 80 MG PO TID PRN for GAS PAIN Allergies Coded Allergies: Ciprofloxacin (Verified Allergy, Unknown, 01/31/17) Rash Infliximab (Verified Allergy, Unknown, 06/24/18) Rofecoxib (Verified Allergy, Unknown, patient doesn't remember reaction, 01/31/17) Tomato (Unverified Allergy, Unknown, 01/31/17) Indomethacin (Verified Adverse Reaction, Intermediate, increased blood pressure, 01/31/17) Diazepam (Verified Adverse Reaction, Mild, Aggitation/Anxiousness, 11/19/17) PETRA GLORIA MD Sep 26, 2018 15:52
[2018-09-26] MEDS: ONDANSETRON 4 MG TAB (S0181) PO PRN (17:02)
[2018-09-26] MEDS: MORPHINE 4 MG/ML 1ML VIAL/SYRINGE (J2270) IV PRN ×2 (17:03→20:35)
[2018-09-26] MEDS: PANTOPRAZOLE 40MG TAB (PROTONIX) PO SCH ×2 (18:26→20:34)
[2018-09-26] MEDS: methylPREDNISolone INJ 40 MG/1 ML VIAL (J2920) IV SCH (18:26)
[2018-09-26] MEDS: CYANOCOBALAMIN 500 MCG TAB PO SCH ×2 (18:27→20:33)
[2018-09-26] MEDS: ENALAPRIL MALEATE 10 MG TAB PO SCH (18:28)
[2018-09-26] MEDS: HumaLOG INSULIN (NovoLOG) PER UNIT SC SCH (18:29)
[2018-09-26] MEDS: hydroCHLOROthiazide 25 MG TAB PO SCH (18:29)
[2018-09-26] MEDS: PERCOCET 5MG/325MG TAB PO PRN (18:30)
[2018-09-26] MEDS: FERROUS SULFATE 325MG TAB PO SCH (20:33)
[2018-09-26] MEDS: HEPARIN SOD (PORCINE) 5000 UNITS/ML VIAL SC SCH (20:33)
[2018-09-26] MEDS: ATORVASTATIN 10 MG TAB PO SCH (20:33)
[2018-09-26 22:00] VITALS: BP 169/81
[2018-09-27] MEDS: PERCOCET 5MG/325MG TAB PO PRN ×4 (00:13→18:36)
[2018-09-27] MEDS: ONDANSETRON 4 MG TAB (S0181) PO PRN ×3 (02:27→16:20)
[2018-09-27 06:00] VITALS: BP 123/61
[2018-09-27] MEDS: HEPARIN SOD (PORCINE) 5000 UNITS/ML VIAL SC SCH ×3 (06:09→21:13)
[2018-09-27] MEDS: MORPHINE 4 MG/ML 1ML VIAL/SYRINGE (J2270) IV PRN (06:36)
[2018-09-27 06:40] LABS: BASO % 0.2 % (0.0-1.0); HEMATOCRIT 29.2 % (36.0-47.0); HEMOGLOBIN 9.6 g/dl (12.0-15.5); LYMPH # 0.8 10^3/uL (1.5-4.5); LYMPH % 6.7 % (24.0-44.0); MEAN CORPUSCULAR HEMOGLOBIN 30.7 pg (27.0-33.0); MEAN CORPUSCULAR HGB CONC 32.9 g/dl (32.0-36.5); MEAN CORPUSCULAR VOLUME 93.3 fl (80.0-96.0); MONO # 0.6 10^3/uL (0.0-0.8); MONO % 4.4 % (0.0-5.0); NEUTROPHILS # 10.8 10^3/uL (1.8-7.7); NEUTROPHILS % 87.6 % (36.0-66.0); PLATELET COUNT, AUTOMATED 302 10^3/uL (150-450); RED BLOOD COUNT 3.13 10^6/uL (4.00-5.40); WHITE BLOOD COUNT 12.4 10^3/uL (4.0-10.0)
[2018-09-27 06:51] LABS: BLOOD UREA NITROGEN 16 MG/DL (7-18); CALCIUM LEVEL 8.3 MG/DL (8.8-10.2); CARBON DIOXIDE LEVEL 26 MEQ/L (21-32); CHLORIDE LEVEL 104 MEQ/L (98-107); CREATININE FOR GFR 0.87 MG/DL (0.55-1.30); GLOMERULAR FILTRATION RATE > 60.0 (>45); GLUCOSE, FASTING 169 MG/DL (70-100); MAGNESIUM LEVEL 1.6 MG/DL (1.8-2.4); SODIUM LEVEL 138 MEQ/L (136-145)
[2018-09-27 07:55] LABS: C REACTIVE PROTEIN QUANTITATIV 0.98 MG/DL (0.00-0.30); CPK CREATINE PHOSPHOKINASE 44 U/L (26-192)
[2018-09-27] MEDS ORDERED: MAG SULF 1GM/100ML (MAG RUN) 1 GM in APPROPRIATE DILUENT 1 EA IV ONE (08:00)
[2018-09-27] MEDS: NS 1,000 ML IV SCH (08:40)
[2018-09-27] MEDS: FERROUS SULFATE 325MG TAB PO SCH ×2 (08:42→21:13)
[2018-09-27] MEDS: GABAPENTIN 300 MG CAP PO SCH ×3 (08:42→21:13)
[2018-09-27] MEDS: HumaLOG INSULIN (NovoLOG) PER UNIT SC SCH ×3 (08:42→17:35)
[2018-09-27] MEDS: PANTOPRAZOLE 40MG TAB (PROTONIX) PO SCH (08:43)
[2018-09-27] MEDS: CYANOCOBALAMIN 500 MCG TAB PO SCH (08:44)
[2018-09-27] MEDS: hydroCHLOROthiazide 25 MG TAB PO SCH (08:45)
[2018-09-27] MEDS: VITAMIN D 1,000 INTERNATIONAL UNITS TABLET PO SCH (08:45)
[2018-09-27] MEDS: ENALAPRIL MALEATE 10 MG TAB PO SCH (08:46)
--- NOTE | 2018-09-27 11:58 | IPNPDOC ---
Date Seen The patient was seen on 09/27/18. Progress Note SUBJECTIVE: Patient tells me that she is feeling better she still has some soreness in her belly and has no appetite but it is significantly improved from the previous day OBJECTIVE PHYSICAL EXAMINATION: VITAL SIGNS: Please see below. GENERAL: Obese elderly female sitting up in bed she does not appear to be in any acute distress HEENT: Cranial nerves intact moist mucous membranes CARDIOVASCULAR: S1-S2 regular. RESPIRATORY: Clear to auscultation bilaterally. ABDOMINAL: Obese bowel sounds are present diffusely tender to palpation EXTREMITIES: No clubbing cyanosis or edema LABORATORY DATA, IMAGING STUDIES, MICROBIOLOGY: Please see below. DVT prophylaxis ordered?: Heparin ASSESSMENT AND PLAN: This is a 62-year-old female with Crohn's disease flare. PROBLEMS: 1. Crohn's disease flare: Patient's abdominal pain appears to be improving she follows with Dr. Borges of gastroenterology he started her on several different infusions is attempting to best control her symptoms. The time being she is on Solu-Medrol. Percocet IV morphine Protonix and she does appear to be improving with bowel rest and being nothing by mouth. She tells me she did have a bowel movement yesterday morning the time being we will continue as we are I'll see if she improves tomorrow to the point where we are able to try her diet. Continue with gentle IV fluids 2. Hypertension: Continue with Norvasc and enalapril hydrochlorothiazide. 3. Iron deficiency anemia: Continue his ferrous sulfate. 4. Dyslipidemia: Continue with Lipitor 5. Diabetes with neuropathy: Continue with insulin sliding scale and fingersticks well controlled continue with Neurontin for neuropathy DISPOSITION: Possibly home in the next 24-48 hours. [facility] Sign[facility]/I&O Vital Signs Date Time Temp Pulse Resp B/P (MAP) Pulse Ox O2 Delivery O2 Flow Rate FiO2 09/27/18 08:47 18 09/27/18 08:45 87 116/66 09/27/18 06:00 97.4 96 09/26/18 16:24 Room Air I&O- Last 24 Hours up to 6 AM 09/27/18 06:00 Intake Total 1000 ml Output Total 300 ml Balance 700 ml Laboratory Data 24H LABS Laboratory Tests 2 09/26/18 17:17: Bedside Glucose (Misc Panel) 186H 09/27/18 00:17: Bedside Glucose (Misc Panel) 198H 09/27/18 06:06: Erythrocyte Sedimentation Rate 14 09/27/18 06:09: Immature Granulocyte % (Auto) 1.1, White Blood Count 12.4H, Red Blood Count 3.13L, Hemoglobin 9.6L, Hematocrit 29.2L, Mean Corpuscular Volume 93.3, Mean Corpuscular Hemoglobin 30.7, Mean Corpuscular Hemoglobin Concent 32.9, Red Cell Distribution Width 14.8H, Platelet Count 302, Neutrophils (%) (Auto) 87.6H, Lymphocytes (%) (Auto) 6.7L, Monocytes (%) (Auto) 4.4, Eosinophils (%) (Auto) 0.0, Basophils (%) (Auto) 0.2, Neutrophils # (Auto) 10.8H, Lymphocytes # (Auto) 0.8L, Monocytes # (Auto) 0.6, Eosinophils # (Auto) 0.0, Basophils # (Auto) 0.0, Nucleated Red Blood Cells % (auto) 0.0, Anion Gap 8, Glomerular Filtration Rate > 60.0, Blood Urea Nitrogen 16, Creatinine 0.87, Sodium Level 138, Potassium Level 4.0, Chloride Level 104, Carbon Dioxide Level 26, Calcium Level 8.3L, Magnesium Level 1.6L, Total Creatine Kinase 44, C-Reactive Protein, Quantitative 0.98H 09/27/18 11:22: Bedside Glucose ([facility] Panel) 113 CBC/BMP Laboratory Tests 09/27/18 06:09 Red Blood Count 3.13 L, Mean Corpuscular Volume 93.3, Mean Corpuscular Hemoglobin 30.7, Mean Corpuscular Hemoglobin Concent 32.9, Red Cell Distribution Width 14.8 H, Neutrophils (%) (Auto) 87.6 H, Lymphocytes (%) (Auto) 6.7 L, Monocytes (%) (Auto) 4.4, Eosinophils (%) (Auto) 0.0, Basophils (%) (Auto) 0.2, Neutrophils # (Auto) 10.8 H, Lymphocytes # (Auto) 0.8 L, Monocytes # (Auto) 0.6, Eosinophils # (Auto) 0.0, Basophils # (Auto) 0.0, Calcium Level 8.3 L CHARLEY MCNEILL MD Sep 27, 2018 11:58
[2018-09-27 14:00] VITALS: BP 111/59
[2018-09-27] MEDS: methylPREDNISolone INJ 40 MG/1 ML VIAL (J2920) IV SCH (17:35)
[2018-09-27] MEDS: ATORVASTATIN 10 MG TAB PO SCH (21:13)
[2018-09-27 22:00] VITALS: BP 118/69
[2018-09-28] MEDS: PERCOCET 5MG/325MG TAB PO PRN ×4 (00:42→23:55)
[2018-09-28] MEDS: NS 1,000 ML IV SCH ×2 (01:20→18:35)
[2018-09-28] MEDS: ONDANSETRON 4 MG TAB (S0181) PO PRN ×3 (04:07→21:50)
[2018-09-28 06:00] VITALS: BP 124/72
[2018-09-28] MEDS: HEPARIN SOD (PORCINE) 5000 UNITS/ML VIAL SC SCH ×3 (06:04→21:58)
[2018-09-28 06:41] LABS: BASO % 0.1 % (0.0-1.0); HEMATOCRIT 27.8 % (36.0-47.0); LYMPH # 0.9 10^3/uL (1.5-4.5); LYMPH % 9.8 % (24.0-44.0); MEAN CORPUSCULAR HEMOGLOBIN 30.5 pg (27.0-33.0); MEAN CORPUSCULAR HGB CONC 32.4 g/dl (32.0-36.5); MEAN CORPUSCULAR VOLUME 94.2 fl (80.0-96.0); MONO # 0.3 10^3/uL (0.0-0.8); MONO % 3.1 % (0.0-5.0); NEUTROPHILS # 8.2 10^3/uL (1.8-7.7); NEUTROPHILS % 86.3 % (36.0-66.0); PLATELET COUNT, AUTOMATED 244 10^3/uL (150-450); RED BLOOD COUNT 2.95 10^6/uL (4.00-5.40); WHITE BLOOD COUNT 9.5 10^3/uL (4.0-10.0)
[2018-09-28 07:06] LABS: BLOOD UREA NITROGEN 17 MG/DL (7-18); CALCIUM LEVEL 7.9 MG/DL (8.8-10.2); CARBON DIOXIDE LEVEL 29 MEQ/L (21-32); CHLORIDE LEVEL 103 MEQ/L (98-107); CREATININE FOR GFR 0.71 MG/DL (0.55-1.30); GLOMERULAR FILTRATION RATE > 60.0 (>45); GLUCOSE, FASTING 129 MG/DL (70-100); MAGNESIUM LEVEL 1.6 MG/DL (1.8-2.4); POTASSIUM SERUM 4.2 MEQ/L (3.5-5.1); SODIUM LEVEL 139 MEQ/L (136-145)
[2018-09-28] MEDS: VITAMIN D 1,000 INTERNATIONAL UNITS TABLET PO SCH (08:42)
[2018-09-28] MEDS: GABAPENTIN 300 MG CAP PO SCH ×3 (08:43→21:58)
[2018-09-28] MEDS: CYANOCOBALAMIN 500 MCG TAB PO SCH (08:44)
[2018-09-28] MEDS: ENALAPRIL MALEATE 10 MG TAB PO SCH (08:45)
[2018-09-28] MEDS: PANTOPRAZOLE 40MG TAB (PROTONIX) PO SCH (08:46)
[2018-09-28] MEDS: FERROUS SULFATE 325MG TAB PO SCH ×2 (08:46→21:58)
[2018-09-28] MEDS: hydroCHLOROthiazide 25 MG TAB PO SCH (08:47)
[2018-09-28] MEDS: HumaLOG INSULIN (NovoLOG) PER UNIT SC SCH ×3 (08:51→17:30)
[2018-09-28] MEDS: MAG SULF 1GM/100ML (MAG RUN) 1 GM in APPROPRIATE DILUENT 1 EA IV SCH ×2 (11:11→12:53)
--- NOTE | 2018-09-28 13:20 | IPNPDOC ---
Date Seen The patient was seen on 09/28/18. Progress Note SUBJECTIVE: Patient tells me that she is feeling better but is not ready to eat. OBJECTIVE PHYSICAL EXAMINATION: VITAL SIGNS: Please see below. GENERAL: Obese elderly female of ambulating around her room she does not appear to be in any acute distress HEENT: Cranial nerves intact moist mucous membranes CARDIOVASCULAR: S1-S2 regular. RESPIRATORY: Clear to auscultation bilaterally. ABDOMINAL: Obese bowel sounds are present diffusely tender to palpation EXTREMITIES: No clubbing cyanosis or edema LABORATORY DATA, IMAGING STUDIES, MICROBIOLOGY: Please see below. DVT prophylaxis ordered?: Heparin ASSESSMENT AND PLAN: This is a 62-year-old female with Crohn's disease flare. PROBLEMS: 1. Crohn's disease flare: Patient's abdominal pain appears to be improving she follows with Dr. Borges of gastroenterology he started her on several different infusions is attempting to best control her symptoms. The time being she is on Solu-Medrol. Percocet IV morphine Protonix and she does appear to be improving with bowel rest and being nothing by mouth. She tells me that she is not ready to attempt even clear liquids yet today we will continue to follow her closely as suspect she is getting close perhaps later this afternoon. Continue with gentle IV fluids 2. Hypertension: Continue with Norvasc and enalapril hydrochlorothiazide. 3. Iron deficiency anemia: Continue his ferrous sulfate. 4. Dyslipidemia: Continue with Lipitor 5. Diabetes with neuropathy: Continue with insulin sliding scale and fingersticks well controlled continue with Neurontin for neuropathy DISPOSITION: Possibly home in the next 24-48 hours. VS, I&O, [facility] Vital Signs/I&O Vital Signs Date Time Temp Pulse Resp B/P (MAP) Pulse Ox O2 Delivery O2 Flow Rate FiO2 09/28/18 11:20 22 09/28/18 08:48 71 124/66 09/28/18 06:00 97.5 97 09/26/18 16:24 Room Air I&O- Last 24 Hours up to 6 AM 09/28/18 06:00 Intake Total 650 ml Output Total 1850 ml Balance -1200 ml Laboratory Data 24H LABS Laboratory Tests 2 09/27/18 16:27: Bedside Glucose (Misc Panel) 107 09/28/18 00:15: Bedside Glucose (Misc Panel) 185H 09/28/18 06:22: Immature Granulocyte % (Auto) 0.7, White Blood Count 9.5, Red Blood Count 2.95L, Hemoglobin 9.0L, Hematocrit 27.8L, Mean Corpuscular Volume 94.2, Mean Corpus cular Hemoglobin 30.5, Mean Corpuscular Hemoglobin Concent 32.4, Red Cell Distribution Width 14.4, Platelet Count 244, Neutrophils (%) (Auto) 86.3H, Lymphocytes (%) (Auto) 9.8L, Monocytes (%) (Auto) 3.1, Eosinophils (%) (Auto) 0.0, Basophils (%) (Auto) 0.1, Neutrophils # (Auto) 8.2H, Lymphocytes # (Auto) 0.9L, Monocytes # (Auto) 0.3, Eosinophils # (Auto) 0.0, Basophils # (Auto) 0.0, Nucleated Red Blood Cells % (auto) 0.0, Anion Gap 7L, Glomerular Filtration Rate > 60.0, Blood Urea Nitrogen 17, Creatinine 0.71, Sodium Level 139, Potassium Level 4.2, Chloride Level 103, Carbon Dioxide Level 29, Calcium Level 7.9L, Magnesium Level 1.6L 09/28/18 11:44: Bedside Glucose (Misc Panel) 105 CBC/BMP Laboratory Tests 09/28/18 06:22 Red Blood Count 2.95 L, Mean Corpuscular Volume 94.2, Mean Corpuscular Hemoglobin 30.5, Mean Corpuscular Hemoglobin Concent 32.4, Red Cell Distribution Width 14.4, Neutrophils (%) (Auto) 86.3 H, Lymphocytes (%) (Auto) 9.8 L, Mon ocytes (%) (Auto) 3.1, Eosinophils (%) (Auto) 0.0, Basophils (%) (Auto) 0.1, Neutrophils # (Auto) 8.2 H, Lymphocytes # (Auto) 0.9 L, Monocytes # (Auto) 0.3, Eosinophils # (Auto) 0.0, Basophils # (Auto) 0.0, Calcium Level 7.9 L CHARLEY MCNEILL MD Sep 28, 2018 13:20
[2018-09-28 14:46] VITALS: BP 121/66
[2018-09-28] MEDS: MORPHINE 4 MG/ML 1ML VIAL/SYRINGE (J2270) IV PRN (15:42)
[2018-09-28] MEDS: methylPREDNISolone INJ 40 MG/1 ML VIAL (J2920) IV SCH (18:35)
[2018-09-28] MEDS: ATORVASTATIN 10 MG TAB PO SCH (21:58)
[2018-09-28 22:00] VITALS: BP 142/77
[2018-09-29] MEDS: HEPARIN SOD (PORCINE) 5000 UNITS/ML VIAL SC SCH ×3 (05:03→22:01)
[2018-09-29] MEDS: PERCOCET 5MG/325MG TAB PO PRN ×4 (05:03→22:02)
[2018-09-29 06:00] VITALS: BP 146/80
[2018-09-29 06:40] LABS: BASO % 0.1 % (0.0-1.0); HEMATOCRIT 27.5 % (36.0-47.0); HEMOGLOBIN 9.2 g/dl (12.0-15.5); LYMPH # 0.7 10^3/uL (1.5-4.5); LYMPH % 10.8 % (24.0-44.0); MEAN CORPUSCULAR HEMOGLOBIN 30.3 pg (27.0-33.0); MEAN CORPUSCULAR HGB CONC 33.5 g/dl (32.0-36.5); MEAN CORPUSCULAR VOLUME 90.5 fl (80.0-96.0); MONO # 0.2 10^3/uL (0.0-0.8); MONO % 3.3 % (0.0-5.0); NEUTROPHILS # 5.7 10^3/uL (1.8-7.7); NEUTROPHILS % 84.8 % (36.0-66.0); PLATELET COUNT, AUTOMATED 245 10^3/uL (150-450); RED BLOOD COUNT 3.04 10^6/uL (4.00-5.40); WHITE BLOOD COUNT 6.7 10^3/uL (4.0-10.0)
[2018-09-29 07:04] LABS: BLOOD UREA NITROGEN 15 MG/DL (7-18); CALCIUM LEVEL 8.2 MG/DL (8.8-10.2); CARBON DIOXIDE LEVEL 29 MEQ/L (21-32); CHLORIDE LEVEL 102 MEQ/L (98-107); CREATININE FOR GFR 0.66 MG/DL (0.55-1.30); GLOMERULAR FILTRATION RATE > 60.0 (>45); GLUCOSE, FASTING 136 MG/DL (70-100); MAGNESIUM LEVEL 1.9 MG/DL (1.8-2.4); SODIUM LEVEL 139 MEQ/L (136-145)
[2018-09-29 08:03] LABS: C REACTIVE PROTEIN QUANTITATIV 0.43 MG/DL (0.00-0.30)
[2018-09-29 09:00] VITALS: BP 162/80
[2018-09-29] MEDS: ONDANSETRON 4 MG TAB (S0181) PO PRN ×2 (09:27→22:11)
[2018-09-29] MEDS: BISACODYL 5 MG TAB PO PRN (09:27)
[2018-09-29] MEDS: HumaLOG INSULIN (NovoLOG) PER UNIT SC SCH ×3 (09:29→17:25)
[2018-09-29] MEDS: NS 1,000 ML IV SCH (10:37)
[2018-09-29] MEDS: CYANOCOBALAMIN 500 MCG TAB PO SCH (10:38)
[2018-09-29] MEDS: GABAPENTIN 300 MG CAP PO SCH ×3 (10:39→22:02)
[2018-09-29] MEDS: FERROUS SULFATE 325MG TAB PO SCH ×2 (10:39→22:01)
[2018-09-29] MEDS: ENALAPRIL MALEATE 10 MG TAB PO SCH (10:40)
[2018-09-29] MEDS: PANTOPRAZOLE 40MG TAB (PROTONIX) PO SCH (10:40)
[2018-09-29] MEDS: VITAMIN D 1,000 INTERNATIONAL UNITS TABLET PO SCH (10:40)
[2018-09-29] MEDS: hydroCHLOROthiazide 25 MG TAB PO SCH (10:41)
[2018-09-29 11:26] VITALS: BP 128/68
[2018-09-29 14:00] VITALS: BP 130/66
--- NOTE | 2018-09-29 15:46 | IPNPDOC ---
Text Note Date of Service The patient was seen on 09/29/18. NOTE Subjective: Patient was seen and examined at the bedside. Patient notes that she is not expressing any nausea, vomiting. Denies any constipation, diarrhea still ex penses some abdominal pain. Denies any chest pain, shortness of breath or palpitations. Objective: Vitals (See below) General: Lying in bed, no acute distress, comfortable, AAOx3 HEENT: NC, AT CVS: RRR, +S1S2 Lungs: Fair air entry b/l, -w/r/r Abdomen: Soft, ND, mild tenderness. Patient at bilateral upper quadrants Extremities: - Edema, - Calf tenderness Assessment and plan: Abdomianl pain - likely 09/19 Crohn's disease flare - Patient has improvement of her nausea, vomiting and abdominal pain - Physical still reveal some abdominal tenderness - CRPs and WBC have begun to decline - CT abdomen / pelvis 09/26: Thickening of distal ileum with moderately dilated small bowel loops just proximal to this, with a transition point in the right lower quadrant. Findings are consistent with some degree of small bowel obstruction. There is mild mesenteric edema/inflammation in the right lower quadrant laterally. No free air. - c/w Solumedrol; will transition to Prednisone when tolerating PO diet - Will advance diet to clear liquids today HTN - BP well controlled - c/w Amlodipine, Enalapril, HCTZ Iron deficiency anemia - c/w Ferrous sulfate DLP - c/w Atorvastatin DM2 and Neuropathy - c/w ISS and Gabapentin GI prophylaxis - c/w Protonix DVT prophylaxis - c/w Heparin Disposition: - Possibly home in the next 24-48 hours. VS,Adarsh, I+O VS, Adarsh, I+O Laboratory Tests 09/29/18 05:41 Red Blood Count 3.04 L, Mean Corpuscular Volume 90.5, Mean Corpuscular H emoglobin 30.3, Mean Corpuscular Hemoglobin Concent 33.5, Red Cell Distribution Width 14.0, Neutrophils (%) (Auto) 84.8 H, Lymphocytes (%) (Auto) 10.8 L, Monocytes (%) (Auto) 3.3, Eosinophils (%) (Auto) 0.0, Basophils (%) (Auto) 0.1, Neutrophils # (Auto) 5.7, Lymphocytes # (Auto) 0.7 L, Monocytes # (Auto) 0.2, Eosinophils # (Auto) 0.0, Basophils # (Auto) 0.0, Calcium Level 8.2 L Vital Signs Date Time Temp Pulse Resp B/P (MAP) Pulse Ox O2 Delivery O2 Flow Rate FiO2 09/29/18 14:00 96.9 72 19 130/66 (87) 94 09/26/18 16:24 Room Air I&O- Last 24 Hours up to 6 AM 09/29/18 06:00 Intake Total 100 ml Output Total 3400 ml Balance -3300 ml LIOR SCHAEFFER MD Sep 29, 2018 15:46
[2018-09-29] MEDS ORDERED: predniSONE 20 MG TAB PO ONE (18:00)
[2018-09-29 22:00] VITALS: BP 154/74
[2018-09-29] MEDS: ATORVASTATIN 10 MG TAB PO SCH (22:01)
[2018-09-30] MEDS: PERCOCET 5MG/325MG TAB PO PRN ×3 (04:52→18:36)
[2018-09-30] MEDS: HEPARIN SOD (PORCINE) 5000 UNITS/ML VIAL SC SCH ×3 (04:54→21:04)
[2018-09-30 06:00] VITALS: BP 159/78
[2018-09-30 06:50] LABS: BASO % 0.2 % (0.0-1.0); HEMATOCRIT 28.4 % (36.0-47.0); HEMOGLOBIN 9.8 g/dl (12.0-15.5); LYMPH # 0.9 10^3/uL (1.5-4.5); LYMPH % 14.4 % (24.0-44.0); MEAN CORPUSCULAR HEMOGLOBIN 30.4 pg (27.0-33.0); MEAN CORPUSCULAR HGB CONC 34.5 g/dl (32.0-36.5); MEAN CORPUSCULAR VOLUME 88.2 fl (80.0-96.0); MONO # 0.4 10^3/uL (0.0-0.8); NEUTROPHILS % 78.5 % (36.0-66.0); PLATELET COUNT, AUTOMATED 248 10^3/uL (150-450); RED BLOOD COUNT 3.22 10^6/uL (4.00-5.40); WHITE BLOOD COUNT 6.4 10^3/uL (4.0-10.0)
[2018-09-30 07:16] LABS: BLOOD UREA NITROGEN 12 MG/DL (7-18); CALCIUM LEVEL 8.8 MG/DL (8.8-10.2); CARBON DIOXIDE LEVEL 27 MEQ/L (21-32); CHLORIDE LEVEL 102 MEQ/L (98-107); CREATININE FOR GFR 0.67 MG/DL (0.55-1.30); GLOMERULAR FILTRATION RATE > 60.0 (>45); GLUCOSE, FASTING 123 MG/DL (70-100); MAGNESIUM LEVEL 1.5 MG/DL (1.8-2.4); SODIUM LEVEL 139 MEQ/L (136-145)
[2018-09-30] MEDS: HumaLOG INSULIN (NovoLOG) PER UNIT SC SCH ×3 (07:30→18:36)
[2018-09-30 08:35] LABS: C REACTIVE PROTEIN QUANTITATIV < 0.30 MG/DL (0.00-0.30)
[2018-09-30] MEDS: GABAPENTIN 300 MG CAP PO SCH ×3 (10:24→21:04)
[2018-09-30] MEDS: FERROUS SULFATE 325MG TAB PO SCH ×2 (10:24→21:04)
[2018-09-30] MEDS: predniSONE 20 MG TAB PO SCH (10:25)
[2018-09-30] MEDS: CYANOCOBALAMIN 500 MCG TAB PO SCH (10:25)
[2018-09-30] MEDS: hydroCHLOROthiazide 25 MG TAB PO SCH (10:25)
[2018-09-30] MEDS: ENALAPRIL MALEATE 10 MG TAB PO SCH (10:26)
[2018-09-30] MEDS: PANTOPRAZOLE 40MG TAB (PROTONIX) PO SCH (10:27)
[2018-09-30] MEDS: VITAMIN D 1,000 INTERNATIONAL UNITS TABLET PO SCH (10:27)
[2018-09-30] MEDS: MAGNESIUM OXIDE 400 MG TAB (MAG-OX) PO SCH ×2 (10:27→21:04)
[2018-09-30] MEDS ORDERED: SIMETHICONE 80 MG CHEW TAB PO PRN (13:45)
[2018-09-30 14:00] VITALS: BP 160/56
[2018-09-30] MEDS: BISACODYL 5 MG TAB PO PRN (14:15)
--- NOTE | 2018-09-30 14:46 | IPNPDOC ---
Text Note Date of Service The patient was seen on 09/30/18. NOTE Subjective: Patient is a 62-year-old female with a PMHx of Crohn's disease, HTN, DM2, Neuropathy, Anemia, Hx of Kidney stones who presented to ER with complaints of abdominal pain associated with nausea. Pain is located mostly upper quadrants. Patient has not experienced any fevers or chills. Patient has received an infusion of Sterlara (Ustekinumab) on 09/06/[address] Martinez. Patient was admitted to the hospitalist service for further evaluation and treatment for possible Crohn's flare. Patient was seen and examined at the bedside. Patient notes that she is not expressing any nausea, vomiting. Denies any constipation, diarrhea still expenses some abdominal pain. Denies any chest pain, shortness of breath or palpitations. Objective: Vitals (See below) General: Lying in bed, no acute distress, comfortable, AAOx3 HEENT: NC, AT CVS: RRR, +S1S2 Lungs: Fair air entry b/l, no auscultated wheezing, rhonchi, rales Abdomen: Soft, ND, improvement in abdominal tenderness Extremities: No evidence of edema, - Calf tenderness Assessment and plan: Abdominal pain - likely 2/2 Crohn's disease flare - Patient has improvement of her nausea, vomiting and abdominal pain; has been tolerating her diet - Physical still reveal some abdominal tenderness - CRPs and WBC have begun to decline - CT abdomen / pelvis 09/26: Thickening of distal ileum with moderately dilated small bowel loops just proximal to this, with a transition point in the right lower quadrant. Findings are consistent with some degree of small bowel obstruction. There is mild mesenteric edema/inflammation in the right lower quadrant laterally. No free air. - c/w Prednisone 40; will taper slow over the next several days; s/p Solumedrol - Has tolerated a clear liquid diet. We'll continue to advance diet today HTN - BP well controlled - c/w Amlodipine, Enalapril, HCTZ Iron deficiency anemia - c/w Ferrous sulfate DLP - c/w Atorvastatin DM2 and Neuropathy - c/w ISS and Gabapentin GI prophylaxis - c/w Protonix DVT prophylaxis - c/w Heparin Disposition: - Possibly home in the next 24 hours. VS,Fishbone, I+O VS, Fishbone, I+O Laboratory Tests 09/30/18 06:33 Red Blood Count 3.22 L, Mean Corpuscular Volume 88.2, Mean Corpuscular Hemoglobin 30.4, Mean Corpuscular Hemoglobin Concent 34.5, Red Cell Distribution Width 14.0, Neutrophils (%) (Auto) 78.5 H, Lymphocytes (%) (Auto) 14.4 L, Monocytes (%) (Auto) 6.0 H, Eosinophils (%) (Auto) 0.0, Basophils (%) (Auto) 0.2, Neutrophils # (Auto) 5.0, Lymphocytes # (Auto) 0.9 L, Monocytes # (Auto) 0.4, Eosinophils # (Auto) 0.0, Basophils # (Auto) 0.0, Calcium Level 8.8 Vital Signs Date Time Temp Pulse Resp B/P (MAP) Pulse Ox O2 Delivery O2 Flow Rate FiO2 09/30/18 11:15 18 09/30/18 10:26 169/85 09/30/18 10:26 64 09/30/18 06:00 97.5 98 09/26/18 16:24 Room Air I&O- Last 24 Hours up to 6 AM 09/30/18 06:00 Intake Total 1220 ml Output Total 2400 ml Balance -1180 ml LIOR SCHAEFFER MD Sep 30, 2018 14:46
[2018-09-30] MEDS: ONDANSETRON 4 MG TAB (S0181) PO PRN (21:04)
[2018-09-30] MEDS: ATORVASTATIN 10 MG TAB PO SCH (21:04)
[2018-09-30 22:00] VITALS: BP 118/56
[2018-10-01] MEDS: PERCOCET 5MG/325MG TAB PO PRN ×2 (03:04→10:31)
[2018-10-01] MEDS: HEPARIN SOD (PORCINE) 5000 UNITS/ML VIAL SC SCH (05:29)
[2018-10-01 06:00] VITALS: BP 169/79
[2018-10-01 07:02] LABS: BASO % 0.3 % (0.0-1.0); EOS % 0.3 % (0.0-3.0); HEMOGLOBIN 11.3 g/dl (12.0-15.5); LYMPH # 1.9 10^3/uL (1.5-4.5); LYMPH % 25.8 % (24.0-44.0); MEAN CORPUSCULAR HEMOGLOBIN 31.5 pg (27.0-33.0); MEAN CORPUSCULAR HGB CONC 35.3 g/dl (32.0-36.5); MEAN CORPUSCULAR VOLUME 89.1 fl (80.0-96.0); MONO # 0.6 10^3/uL (0.0-0.8); MONO % 7.6 % (0.0-5.0); NEUTROPHILS # 4.7 10^3/uL (1.8-7.7); NEUTROPHILS % 65.2 % (36.0-66.0); PLATELET COUNT, AUTOMATED 282 10^3/uL (150-450); RED BLOOD COUNT 3.59 10^6/uL (4.00-5.40); WHITE BLOOD COUNT 7.2 10^3/uL (4.0-10.0)
[2018-10-01 07:22] LABS: BLOOD UREA NITROGEN 13 MG/DL (7-18); C REACTIVE PROTEIN QUANTITATIV < 0.30 MG/DL (0.00-0.30); CALCIUM LEVEL 9.3 MG/DL (8.8-10.2); CARBON DIOXIDE LEVEL 29 MEQ/L (21-32); CHLORIDE LEVEL 100 MEQ/L (98-107); CREATININE FOR GFR 0.77 MG/DL (0.55-1.30); GLOMERULAR FILTRATION RATE > 60.0 (>45); GLUCOSE, FASTING 115 MG/DL (70-100); MAGNESIUM LEVEL 1.8 MG/DL (1.8-2.4); POTASSIUM SERUM 3.6 MEQ/L (3.5-5.1); SODIUM LEVEL 138 MEQ/L (136-145)
[2018-10-01 08:52] VITALS: BP 168/85
[2018-10-01] MEDS: GABAPENTIN 300 MG CAP PO SCH (08:52)
[2018-10-01] MEDS: VITAMIN D 1,000 INTERNATIONAL UNITS TABLET PO SCH (08:52)
[2018-10-01] MEDS: HumaLOG INSULIN (NovoLOG) PER UNIT SC SCH (08:52)
[2018-10-01] MEDS: predniSONE 20 MG TAB PO SCH (08:53)
[2018-10-01] MEDS: CYANOCOBALAMIN 500 MCG TAB PO SCH (08:53)
[2018-10-01] MEDS: MAGNESIUM OXIDE 400 MG TAB (MAG-OX) PO SCH (08:53)
[2018-10-01] MEDS: ENALAPRIL MALEATE 10 MG TAB PO SCH (08:53)
[2018-10-01] MEDS: PANTOPRAZOLE 40MG TAB (PROTONIX) PO SCH (08:53)
[2018-10-01] MEDS: FERROUS SULFATE 325MG TAB PO SCH (08:53)
[2018-10-01] MEDS: hydroCHLOROthiazide 25 MG TAB PO SCH (08:54)
[2018-10-01] MEDS ORDERED: SIME80TA PO (09:10)
[2018-10-01] MEDS ORDERED: TRAM50TA2 PO (09:10)
[2018-10-01] MEDS ORDERED: PRED10TA2 PO (09:10)
--- NOTE | 2018-10-01 15:11 | DS.PDOC ---
Discharge Summary General Date of Admission Sep 26, 2018 at 14:30 Date of Discharge 10/01/2018 Discharge Summary PROCEDURES PERFORMED DURING STAY: [None]. ADMITTING DIAGNOSES / DISCHARGE DIAGNOSES: Abdominal pain - likely 2/2 Crohn's disease flare HTN Iron deficiency anemia DLP DM2 and Neuropathy GI prophylaxis DVT prophylaxis COMPLICATIONS/CHIEF COMPLAINT: Abdominal pain / Nausea HISTORY OF PRESENT ILLNESS: Patient is a 62-year-old female with a PMHx of Crohn's disease, HTN, DM2, Neuropathy, Anemia, Hx of Kidney stones who presented to ER with complaints of abdominal pain associated with nausea. Pain is located mostly upper quadrants. Patient has not experienced any fevers or chills. Patient has received an infusion of Sterlara (Ustekinumab) on 09/06/[address] Martinez. Patient was admitted to the hospitalist service for further evaluation and treatment for possible Crohn's flare. HOSPITAL COURSE: Abdominal pain - likely 2/2 Crohn's disease flare - Patient is indicated that her abdominal pain is resolved, no longer experiences nausea - Physical without significant tenderness - CRPs have normalized; s/p Leukocytosis - CT abdomen / pelvis 09/26: Thickening of distal ileum with moderately dilated small bowel loops just proximal to this, with a transition point in the right l ower quadrant. Findings are consistent with some degree of small bowel obstruction. There is mild mesenteric edema/inflammation in the right lower quadrant laterally. No free air. - c/w Prednisone; will provide taper on discharge; s/p Solumedrol - Tolerating full diet HTN - BP well controlled - c/w Amlodipine, Enalapril, HCTZ Iron deficiency anemia - c/w Ferrous sulfate DLP - c/w Atorvastatin DM2 and Neuropathy - c/w ISS and Gabapentin GI prophylaxis - c/w Protonix DVT prophylaxis - c/w Heparin DISCHARGE MEDICATIONS: Please see below. ALLERGIES: Please see below. PHYSICAL EXAMINATION ON DISCHARGE: Vitals (See below) General: Lying in bed, no acute distress, comfortable, AAOx3 HEENT: NC, AT CVS: RRR, +S1S2 Lungs: Fair air entry b/l, no evidence of wheezing, rhonchi or rales. Upon auscultation Abdomen: Soft, nondistended, with minimal tenderness on palpation Extremities: No evidence of LE edema, - Calf tenderness LABORATORY DATA: Please see below. ACTIVITY: [As tolerated]. DISCHARGE PLAN: Follow-up with Dr. Huff and Dr. Halley Garcia within the next 7 days Remain compliant with treatment plan and medications Return to the ER if you experience any problems DISPOSITION: Home, Self-Care. DISCHARGE CONDITION: [Stable]. TIME SPENT ON DISCHARGE: Greater than [35] minutes. Vital Signs/I&Os Vital Signs Date Time Temp Pulse Resp B/P (MAP) Pulse Ox O2 Delivery O2 Flow Rate FiO2 10/01/18 10:31 18 10/01/18 08:52 65 168/85 10/01/18 06:00 97.6 97 09/26/18 16:24 Room Air I&O- Last 24 Hours up to 6 AM 10/01/18 06:00 Intake Total 1830 ml Output Total 2400 ml Balance -570 ml Laboratory Data Labs 24H Laboratory Tests 2 09/30/18 18:20: Bedside Glucose (Misc Panel) 166H 10/01/18 06:34: Immature Granulocyte % (Auto) 0.8, White Blood Count 7.2, Red Blood Count 3.59L, Hemoglobin 11.3L, Hematocrit 32.0L, Mean Corpuscular Volume 89.1, Mean Corpuscular Hemoglobin 31.5, Mean Corpuscular Hemoglobin Concent 35.3, Red Cell Distribution Width 14.1, Platelet Count 282, Neutrophils (%) (Auto) 65.2, Lymphocytes (%) (Auto) 25.8, Monocytes (%) (Auto) 7.6H, Eosinophils (%) (Auto) 0.3, Basophils (%) (Auto) 0.3, Neutrophils # (Auto) 4.7, Lymphocytes # (Auto) 1.9, Monocytes # (Auto) 0.6, Eosinophils # (Auto) 0.0, Basophils # (Auto) 0.0, Nucleated Red Blood Cells % (auto) 0.0, Anion Gap 9, Glomerular Filtration Rate > 60.0, Blood Urea Nitrogen 13, Creatinine 0.77, Sodium Level 138, Potassium Level 3.6, Chloride Level 100, Carbon Dioxide Level 29, Calcium Level 9.3, Magn esium Level 1.8, C-Reactive Protein, Quantitative < 0.30 CBC/BMP Laboratory Tests 10/01/18 06:34 Red Blood Count 3.59 L, Mean Corpuscular Volume 89.1, Mean Corpuscular Hemoglobin 31.5, Mean Corpuscular Hemoglobin Concent 35.3, Red Cell Distribution Width 14.1, Neutrophils (%) (Auto) 65.2, Lymphocytes (%) (Auto) 25.8, Monocytes (%) (Auto) 7.6 H, Eosinophils (%) (Auto) 0.3, Basophils (%) (Auto) 0.3, Neutrophils # (Auto) 4.7, Lymphocytes # (Auto) 1.9, Monocytes # (Auto) 0.6, E osinophils # (Auto) 0.0, Basophils # (Auto) 0.0, Calcium Level 9.3 FSBS Laboratory Tests Test 09/30/18 18:20 Range/Units Bedside Glucose (Misc Panel) 166 80-115 MG/DL Discharge Medications Scheduled (Calcium Citrate + 315-200 mg-Unit) 1 Tab Tab, 1 TAB PO BID, (Reported) (Potassium Citrate/Citric 1100-334 mg/5Ml) 1 Yamilet Yamilet, 10 ML PO PCHS, (Reported) (Stelara) Unknown Strength Inj, Unknown Dose IV ASDIRECTED, (Reported) RECEIVES EVERY 8 WEEKS Amlodipine Besylate (Norvasc) 2.5 Mg Tab, 2.5 MG PO DAILY, (Reported) Atorvastatin Calcium (Atorvastatin Calcium) 10 Mg Tab, 10 MG PO QHS, (Reported) Cholecalciferol (Vitamin D) 1,000 Unit Tab, 1,000 UNIT PO DAILY, (Reported) Cimicifuga [place] (Black Coh (Remifemin) 20 Mg Tab, 20 MG PO BID, (Reported) Cyanocobalamin (Vitamin B-12) 1,000 Mcg Tab, 1,000 MCG PO DAILY, (Reported) Enalapril Maleate (Enalapril Maleate) 20 Mg Tab, 20 MG PO DAILY, (Reported) Ferrous Sulfate (Ferrous Sulfate) 325 Mg Tab, 325 MG PO BID, (Reported) Gabapentin (Gabapentin) 300 Mg Cap, 300 MG PO TID, (Reported) Hydrochlorothiazide (Hydrochlorothiazide) 25 Mg Tab, 25 MG PO DAILY, (Reported) Magnesium Oxide (Magnesium) 250 Mg Tab, 250 MG PO DAILY, (Reported) Meloxicam (Meloxicam) 15 Mg Tab, 15 MG PO DAILY, (Reported) Metformin Hydrochloride (Metformin HCl) 1,000 Mg Tab, 1,000 MG PO BIDWM, (Reported) Pantoprazole Sodium (Pantoprazole Sodium) 40 Mg Tab, 40 MG PO DAILY, (Reported) Prednisone (Prednisone) 10 Mg Tab, 10 MG PO TAPER Take 4 tabs daily x 3 days, then 3 tabs daily x 3 days, then 2 tabs daily x 3 days, then 1 tab daily x 3 days and stop Scheduled PRN Simethicone (Simethicone) 80 Mg Chew, 80 MG PO TIDP PRN for BLOATING Tramadol HCl (Tramadol HCl) 50 Mg Tab, 1 TAB PO BIDP PRN for pain Allergies Coded Allergies: Ciprofloxacin (Verified Allergy, Unknown, 01/31/17) Rash Infliximab (Verified Allergy, Unknown, 06/24/18) Rofecoxib (Verified Allergy, Unknown, patient doesn't remember reaction, 01/31/17) Tomato (Unverified Allergy, Unknown, 01/31/17) Indomethacin (Verified Adverse Reaction, Intermediate, increased blood pressure, 01/31/17) Diazepam (Verified Adverse Reaction, Mild, Aggitation/Anxiousness, 11/19/17) LIOR SCHAEFFER MD Oct 01, 2018 15:11
== END 2018-10-01 11:25 | disposition home or self-care (01) | DRG 245 ==
LOC: M ED 07:55 → M ED INP 14:30 → M MS5PR 16:35
PROVIDERS: ADMIT Internal Medicine; ATTEND Internal Medicine
DX: K50.90 Crohn's disease, unspecified, without complications (principal); E11.40 Type 2 diabetes mellitus with diabetic neuropathy, unspecified; E11.51 Type 2 diabetes mellitus with diabetic peripheral angiopathy without gangrene; D50.9 Iron deficiency anemia, unspecified; I10 Essential (primary) hypertension; Z79.899 Other long term (current) drug therapy; Z88.8 Allergy status to other drugs, medicaments and biological substances; Z91.018 Allergy to other foods; Z87.442 Personal history of urinary calculi; Z87.891 Personal history of nicotine dependence; E78.5 Hyperlipidemia, unspecified

== ENCOUNTER → 2018-10-21 | Outpatient (CLI) | payer OTHER ==
[~2018-10-21] MED LIST changes: +STEL130I IV; +TRAM50TA2 PO
[2018-10-21 15:50] LABS: ALBUMIN 3.8 GM/DL (3.2-5.2); ALT/SGPT 31 U/L (12-78); BILIRUBIN,TOTAL 0.4 MG/DL (0.2-1.0); BLOOD UREA NITROGEN 14 MG/DL (7-18); CARBON DIOXIDE LEVEL 27 MEQ/L (21-32); CHLORIDE LEVEL 104 MEQ/L (98-107); CREATININE FOR GFR 0.74 MG/DL (0.55-1.30); GLOMERULAR FILTRATION RATE > 60.0 (>45); GLUCOSE, FASTING 150 MG/DL (70-100); POTASSIUM SERUM 4.2 MEQ/L (3.5-5.1); SODIUM LEVEL 141 MEQ/L (136-145); TOTAL PROTEIN 6.5 GM/DL (6.4-8.2)
== END ==
LOC: M LAB 14:39
PROVIDERS: ATTEND Family Medicine
DX: E11.69 Type 2 diabetes mellitus with other specified complication (principal)

== ENCOUNTER → 2018-11-07 | Outpatient (CLI) | payer OTHER ==
[2018-11-09 10:54] LABS: HEPATITIS B SURFACE ANTIBODY NEGATIVE (POSITIVE); HEPATITIS B SURFACE ANTIGEN NEGATIVE (NEGATIVE)
== END ==
LOC: M LAB 13:00
PROVIDERS: ATTEND Internal Medicine Gastroenterology
DX: K50.012 Crohn's disease of small intestine with intestinal obstruction (principal)

== ENCOUNTER → 2019-01-20 | Outpatient (CLI) | payer MEDICARE ==
[~2019-01-20] MED LIST changes: +ASPI81TA85 PO; +HYDR-2541 PO; +HYDR-3715 PO; -NORCOTAB PO; +SUCR1SS PO
[2019-01-20 13:43] LABS: BLOOD UREA NITROGEN 17 MG/DL (7-18); CARBON DIOXIDE LEVEL 29 MEQ/L (21-32); CHLORIDE LEVEL 102 MEQ/L (98-107); CREATININE FOR GFR 0.61 MG/DL (0.55-1.30); GLOMERULAR FILTRATION RATE > 60.0 (>45); GLUCOSE, FASTING 105 MG/DL (70-100); POTASSIUM SERUM 4.2 MEQ/L (3.5-5.1); SODIUM LEVEL 140 MEQ/L (136-145)
== END ==
LOC: M LAB 11:46
PROVIDERS: ATTEND Family Medicine
DX: E11.69 Type 2 diabetes mellitus with other specified complication (principal)
CPT/HCPCS: 36415; 80053; 83036; 84439; 84443; 85025; G0463

== ENCOUNTER 2019-01-27 07:27 | Emergency (ER) | payer MEDICARE ==
[~2019-01-27] VITALS: Ht 144.8 cm; Wt 77.3 kg
[~2019-01-27 07:27] MED LIST changes: -ASPI81TA85 PO; -SUCR1SS PO
--- NOTE | 2019-01-27 08:21 | REP ---
Portable chest x-ray: Single view: History: Chest pain. Comparison chest x-ray: September 10, 2016. Findings: EKG monitoring electrodes overlie the chest. Lungs are well inflated and clear. The pleural angles are sharp. Heart size is normal. Pulmonary vasculature is not increased. Impression: No active disease. Electronically Signed by Ruddy Westfall MD 01/27/2019 06:12 P
[2019-01-27 08:28] LABS: BASO % 0.5 % (0.0-1.0); EOS # 0.1 10^3/uL (0.0-0.50); EOS % 1.2 % (0.0-3.0); HEMOGLOBIN 10.7 g/dl (12.0-15.5); LYMPH # 0.9 10^3/uL (1.5-4.5); LYMPH % 14.8 % (24.0-44.0); MEAN CORPUSCULAR HEMOGLOBIN 31.4 pg (27.0-33.0); MEAN CORPUSCULAR HGB CONC 34.5 g/dl (32.0-36.5); MEAN CORPUSCULAR VOLUME 90.9 fl (80.0-96.0); MONO # 0.4 10^3/uL (0.0-0.8); MONO % 5.8 % (0.0-5.0); NEUTROPHILS # 4.7 10^3/uL (1.8-7.7); NEUTROPHILS % 76.9 % (36.0-66.0); PLATELET COUNT, AUTOMATED 257 10^3/uL (150-450); RED BLOOD COUNT 3.41 10^6/uL (4.00-5.40); WHITE BLOOD COUNT 6.1 10^3/uL (4.0-10.0)
[2019-01-27] MEDS: NITROGLYCERIN 0.4 MG SUBL TABLET SL PRN ×2 (08:28→08:41)
[2019-01-27] MEDS ORDERED: ONDANSETRON 4 MG ORAL DISINTEGRATING TAB (Q0162 PER 1MG) PO ONE (08:30)
[2019-01-27 08:38] LABS: INR 0.89; PROTHROMBIN TIME 12.1 SECONDS (12.1-14.4)
[2019-01-27 08:41] VITALS: BP 139/73
[2019-01-27 08:56] LABS: ALBUMIN 3.6 GM/DL (3.2-5.2); ALT/SGPT 38 U/L (12-78); BILIRUBIN,TOTAL 0.5 MG/DL (0.2-1.0); BLOOD UREA NITROGEN 11 MG/DL (7-18); CARBON DIOXIDE LEVEL 24 MEQ/L (21-32); CHLORIDE LEVEL 103 MEQ/L (98-107); CK-MB VALUE MASS 2.1 NG/ML (<3.6); CPK CREATINE PHOSPHOKINASE 51 U/L (26-192); CREATININE FOR GFR 0.81 MG/DL (0.55-1.30); GLOMERULAR FILTRATION RATE > 60.0 (>45); GLUCOSE, FASTING 163 MG/DL (70-100); LIPASE 135 U/L (73-393); MB/CK RELATIVE INDEX 4.12 (< OR =4); POTASSIUM SERUM 4.1 MEQ/L (3.5-5.1); SODIUM LEVEL 139 MEQ/L (136-145); TOTAL PROTEIN 6.5 GM/DL (6.4-8.2); TROPONIN I < 0.02 NG/ML (< 0.10)
[2019-01-27] MEDS ORDERED: GI COCKTAIL 50ML BTL(HYOSCYAMINE/MAALOX/LIDOCAINE VISCOUS)(1:3:1) PO ONE (09:15)
[2019-01-27] MEDS ORDERED: SUCRALFATE SUSP 1GM/10ML UD PO ONE (09:45)
[2019-01-27] MEDS ORDERED: METOCLOPRAMIDE INJ 10MG/2ML VIAL (J2765) IV ONE (09:45)
[2019-01-27 14:20] LABS: CK-MB VALUE MASS 1.6 NG/ML (<3.6); CPK CREATINE PHOSPHOKINASE 45 U/L (26-192); MB/CK RELATIVE INDEX 3.56 (< OR =4); TROPONIN I < 0.02 NG/ML (< 0.10)
[2019-01-27] MEDS ORDERED: SUCR1SS PO (14:30)
[2019-01-27] MEDS ORDERED: ASPI81TA85 PO (14:33)
[2019-01-27 14:45] VITALS: BP 161/89
--- NOTE | 2019-01-27 16:21 | ECGEPIP ---
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
--- NOTE | 2019-01-27 16:26 | ECGEPIP ---
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
== END 2019-01-27 15:03 | disposition home or self-care (01) ==
LOC: EDBD 07:27 → M ED 07:27
DX: R07.9 Chest pain, unspecified (principal); R00.0 Tachycardia, unspecified; R94.31 Abnormal electrocardiogram [ECG] [EKG]; E11.9 Type 2 diabetes mellitus without complications; I10 Essential (primary) hypertension; N18.9 Chronic kidney disease, unspecified; D50.9 Iron deficiency anemia, unspecified; K50.919 Crohn's disease, unspecified, with unspecified complications; Z87.891 Personal history of nicotine dependence; Z82.49 Family history of ischemic heart disease and other diseases of the circulatory system; Z79.82 Long term (current) use of aspirin; Z79.899 Other long term (current) drug therapy; Z88.1 Allergy status to other antibiotic agents; Z88.8 Allergy status to other drugs, medicaments and biological substances; Z91.018 Allergy to other foods
CPT/HCPCS: 71045; 80053; 82550; 82553; 83690; 84484; 85025; 85610; 93005; 93041; 94760; 96374; 99285; J2765; Q0162

== ENCOUNTER 2019-04-18 15:31 | Inpatient (IN) | payer MEDICARE ==
[~2019-04-18] VITALS: Ht 144.8 cm; Wt 80.7 kg
[~2019-04-18 15:31] MED LIST changes: -ARTI99.0 OU; +ARTIDRO2 OU; +ASPI81TA85 PO; +CYAN100049 PO; +SUCR1SS PO; -VITA10002 PO
[2019-04-18] MEDS ORDERED: ONDANSETRON 4MG/2ML VIAL (J2405) IV ONE ×2 (16:00→17:15)
[2019-04-18] MEDS ORDERED: MORPHINE 2 MG/ML 1ML SYRINGE (J2270) IV ONE (16:00)
[2019-04-18 16:47] LABS: BASO % 0.4 % (0.0-1.0); EOS # 0.1 10^3/uL (0.0-0.5); EOS % 1.1 % (0.0-3.0); HEMATOCRIT 32.7 % (36.0-47.0); HEMOGLOBIN 11.2 g/dl (12.0-15.5); LYMPH % 10.7 % (24.0-44.0); MEAN CORPUSCULAR HEMOGLOBIN 31.3 pg (27.0-33.0); MEAN CORPUSCULAR HGB CONC 34.3 g/dl (32.0-36.5); MEAN CORPUSCULAR VOLUME 91.3 fl (80.0-96.0); MONO # 0.5 10^3/uL (0.0-0.8); MONO % 5.2 % (0.0-5.0); NEUTROPHILS # 7.5 10^3/uL (1.5-8.5); NEUTROPHILS % 81.8 % (36.0-66.0); PLATELET COUNT, AUTOMATED 267 10^3/uL (150-450); RED BLOOD COUNT 3.58 10^6/uL (4.00-5.40); WHITE BLOOD COUNT 9.2 10^3/uL (4.0-10.0)
[2019-04-18] MEDS ORDERED: ISOVUE-370 76% 100ML VIAL (Q9967) As Ordered ONE (16:55)
[2019-04-18] MEDS ORDERED: NS 1,000 ML IV ONE ×2 (17:00→17:15)
[2019-04-18 17:10] LABS: ALBUMIN 3.7 GM/DL (3.2-5.2); ALT/SGPT 37 U/L (12-78); BILIRUBIN,DIRECT 0.2 MG/DL (0.0-0.2); BILIRUBIN,TOTAL 0.6 MG/DL (0.2-1.0); CK-MB VALUE MASS 3.3 NG/ML (<3.6); CPK CREATINE PHOSPHOKINASE 63 U/L (26-192); LIPASE 141 U/L (73-393); MAGNESIUM LEVEL 1.1 MG/DL (1.8-2.4); MB/CK RELATIVE INDEX 5.24 (< OR =4); TOTAL PROTEIN 6.8 GM/DL (6.4-8.2); TROPONIN I < 0.02 NG/ML (< 0.10)
[2019-04-18] MEDS: MORPHINE 2 MG/ML 1ML SYRINGE (J2270) IV PRN ×2 (17:20→19:16)
--- NOTE | 2019-04-18 17:36 | REPVR ---
EXAM: CT Angiography Chest With Contrast EXAM DATE/TIME: 04/18/2019 5:03 PM CLINICAL HISTORY: 63 years old, female; Pain; Other: Abd; Additional info: Vomiting, HX crohns, pain TECHNIQUE: Imaging protocol: Computed tomographic angiography of the chest with intravenous contrast. 3D rendering: MIP reconstructed images were created and reviewed. Radiation optimization: All CT scans at this facility use at least one of these dose optimization techniques: automated exposure control; mA and/or kV adjustment per patient size (includes targeted exams where dose is matched to clinical indication); or iterative reconstruction. Contrast material: ISOVUE 370; Contrast volume: 100 ml; Contrast route: IV; COMPARISON: CT Chest with contrast 02/25/2018 10:31 PM FINDINGS: Pulmonary arteries: No focal pulmonary artery filling defect to suggest acute pulmonary embolus. Great vessels off aortic arch: Incidental aberrant right subclavian artery origin. Aorta: No thoracic aortic aneurysm or dissection. Lungs: Pulmonary vascular/interstitial pattern does not suggest active pulmonary edema. No suspicious lung mass or air space process. No central endobronchial lesion. Atelectasis is present at the lung bases. Pleural space: No pleural effusion or pneumothorax. Heart: No evidence of pericardial effusion. Liver: Liver is probably enlarged and fatty infiltrated. Kidneys and ureters: Incompletely imaged left renal midpole calculus. No hydronephrosis. Left nephrolithiasis, incompletely imaged Lymph nodes: No enlarged lymph nodes. Bones/joints: Bony structures show no acute fracture or destructive process. Soft tissues: Anterior right paramedian 15 mm skin or subcutaneous lesion as seen previously, suggestive of a sebaceous cyst. IMPRESSION: 1. No evidence of acute pulmonary embolus. 2. No other acute or concerning focal intrathoracic abnormality. Electronically signed by: Lars Ugarte On 04/18/2019 17:35:44 PM
--- NOTE | 2019-04-18 17:40 | REPVR ---
EXAM: CT Abdomen and Pelvis With Contrast EXAM DATE/TIME: 04/18/2019 5:03 PM CLINICAL HISTORY: 63 years old, female; Abdominal pain; Generalized; Additional info: Vomiting, HX crohns, pain TECHNIQUE: Imaging protocol: Computed tomography of the abdomen and pelvis with intravenous contrast. Radiation optimization: All CT scans at this facility use at least one of these dose optimization techniques: automated exposure control; mA and/or kV adjustment per patient size (includes targeted exams where dose is matched to clinical indication); or iterative reconstruction. Contrast material: ISOVUE 370; Contrast volume: 100 ml; Contrast route: IV; COMPARISON: CT ABD/PEL W/IV ORAL CONTRAS 09/26/2018 10:18 AM FINDINGS: Liver: Liver is enlarged and decreased in density suggesting hepatic steatosis. Gallbladder and bile ducts: Gallbladder is present and shows no evidence of gallstone. Pancreas: Pancreas appears normal. No focal mass or peripancreatic inflammation. Spleen: Spleen appears homogeneous without focal mass. Adrenals: Adrenal glands are normal in appearance. Kidneys and ureters: Kidneys demonstrate nonobstructing bilateral calculi and a posterior mid pole left renal simple fluid cyst measuring 11 mm is unchanged and benign. No hydronephrosis or ureter dilatation. Stomach and bowel: Small bowel loops in the right mid abdomen are dilated up to 3.2 cm, with inspissated enteric contents. No identifiable mass. Distal most small bowel is decompressed. Diverticular changes are present within the colon without inflammation. Appendix: Normal caliber appendix is identified, with no adjacent inflammation. Intraperitoneal space: No pneumoperitoneum. No abnormal pelvic mass. Vasculature: No aortic aneurysm. Lymph nodes: No enlarged lymph nodes. Bladder: Bladder appears normal. Reproductive: Unremarkable as visualized. Bones/joints: Degenerative changes are seen in the lumbar spine with disc height loss, endplate osteophytes and hypertrophic facet arthropathy. Soft tissues: Unremarkable. IMPRESSION: 1. Partial small bowel obstruction, right mid abdomen, likely secondary to adhesions with no identifiable mass or evidence of volvulus. 2. Colonic diverticular changes without active inflammation. 3. Hepatomegaly and hepatic steatosis. 4. Nonobstructive bilateral renal calculi Electronically signed by: Lars Ugarte On 04/18/2019 17:40:11 PM
[2019-04-18] MEDS ORDERED: STEL90IN SC (18:25)
[2019-04-18] MEDS ORDERED: RA B200C PO (18:25)
[2019-04-18] MEDS ORDERED: CALC600T18 PO (18:25)
[2019-04-18] MEDS ORDERED: MAG SULF 1GM/100ML (MAG RUN) 1 GM in APPROPRIATE DILUENT 1 EA IV ONE ×2 (18:45→22:00)
--- NOTE | 2019-04-18 18:50 | REP ---
Clinical: Pain and vomiting . Comparison: 01/27/2019 . Findings: The mediastinum and cardiac silhouette are stable and within normal limits for portable technique. The lung garcia are clear without acute consolidation, effusion, or pneumothorax. Skeletal structures are intact. Impression: No acute cardiopulmonary process appreciated. Electronically Signed by Charlie Ugarte MD 04/18/2019 06:42 P
--- NOTE | 2019-04-18 19:08 | ECGEPIP ---
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
--- NOTE | 2019-04-18 19:46 | CR.PDOC ---
General Surgery Consultation Date of Consultation 04/18/19 History and Physical CONSULT REPORT FOR: Abdominal pain, vomiting, possible bowel obstruction REASON FOR CONSULTATION: . HISTORY OF PRESENT ILLNESS: Patient is a 63-year-old female with multiple prior episodes of similar symptoms of intermittent obstructive like symptoms where she will have sudden onset of pain, abdominal distention and vomiting. The last episode prior to this was in September 2018 where she was admitted briefly in the hospital and was treated for exacerbation of her Crohn's disease. Reviewing medical records of her admission in 2015 and she had multiple presentations of obstruction for which she was admitted under surgery and at one point because of the recurrence of symptoms she had a diagnostic laparoscopy by Dr. June. No definite obstructive points were found. She eventually on workup was determined to have Crohn's disease. She follows up with Dr. Martinez. Though on questioning her what her exact symptoms were aside from this episodes of obstruction and how the diagnosis of Crohn's disease was made, she tells me that this was found in capsule endoscopy. She has had multiple treatments for Crohn's disease and currently is on Stelara which she gets every 8 weeks. The last one was given to her in February and she is due for April. This current episode started roughly about 2 PM. She reports she was in her general state of health. She had a bowel movement prior to this. She has sudden onset of pain, bloating, abdominal distention and multiple episodes of vomiting prompting the trip to the emergency room PAST MEDICAL HISTORY: 1. . PAST SURGICAL HISTORY: INCLUDES: 1. . PREVIOUS ANESTHESIA REACTIONS: ALLERGIES: Please see below. FAMILY HISTORY: . HOME MEDICATIONS: Please see below. REVIEW OF SYSTEMS: GENERAL: [Denies chills, reports weight gain, reports feeling febrile yesterday]. HEENT: [Denies blurred vision and double vision. Denies ear symptoms. Denies hoarseness]. NECK: Denies any neck pain]. CARDIOVASCULAR: [Denies chest pain and palpitations]. MUSCULOSKELETAL: [Denies arthralgias, back pain and thrombophlebitis]. SKIN: [Denies rash]. NEUROLOGIC: [Denies headache, stroke and transient ischemic attack]. PSYCHIATRIC: [Denies anxiety and depression]. ENDOCRINE: [Denies thyroid disease]. HEMATOLOGY/ONCOLOGY: [Denies bleeding or clotting disorder]. HEART: [Denies any chest pains, palpitations, paroxysmal dyspnea, orthopnea]. PULMONARY: [Denies chronic cough, dyspnea and wheezing]. GASTROINTESTINAL: [Denies rectal bleeding, family history of colon cancer, constipation, diarrhea, dysphagia, heartburn and jaundice]. GENITOURINARY: [Denies dysuria, frequency, hematuria and nocturia]. ENDOCRINE: [Denies polydipsia, polyphagia, polyuria, heat or cold intolerance]. INFECTIOUS: [Denies any recent upper respiratory tract infection, UTI, need for use of antibiotics]. NUTRITION: [Reports good appetite]. PHYSICAL EXAMINATION: VITALS SIGNS: Please see below. GENERAL APPEARANCE: Patient seen sitting up in the bed looks uncomfortable. SKIN: Warm and dry. HEENT: [Normocephalic, atraumatic. [place] palpebral conjunctiva, anicteric sclerae. Lips and mucosa appear dry]. NECK: Short, supple no obvious history of intravenous distention. LUNGS: [Clear to auscultation bilaterally. No wheezing appreciated]. HEART: [No chest wall abnormalities. Regular rate and rhythm with no murmurs appreciated]. ABDOMEN: Abdomen is moderately distended with prominent upper abdominal distention extending on both sides of the abdomen, soft, mildly tender on palpation.. EXTREMITIES: [Extremities have no deformities. No edema identified] ANCILLARIES: . LABORATORY DATA: Please see below. IMAGING STUDIES: CT scan of the abdomen and pelvis 1. Partial small bowel obstruction, right mid abdomen, likely secondary to adhesions with no identifiable mass or evidence of volvulus. 2. Colonic diverticular changes without active inflammation. 3. Hepatomegaly and hepatic steatosis. 4. Nonobstructive bilateral renal calculi Compared to her previous CAT scan especially the one in September 2018 in May 2018 and the pattern looks the same. I could not identify any definite transition point. IMPRESSION AND PLAN: Crohn's disease Small bowel obstruction I further on how the diagnosis of Crohn's disease was made as a saw her symptoms were a bit atypical that she does not have symptoms other than the intermittent obstruction pattern. Unfortunately Dr. Martinez is no available during this holiday weekend. Interestingly with more frequent obstructive presentations during 2015 and , on my colleagues perform a diagnostic laparoscopy at that time of her presentation and he did not find any patterns of obstruction and side. Looking at her previous colonoscopies as well as the pathology from the biopsies, there was no pathological confirmation of Crohn's disease on pathology. She currently is on Stelar and she has failed 3 other regimens including Imuran, Remicade and Entyvio. I offered to place a nasogastric tube so she can be made more comfortable. She tells me the nurses is tried and they have failed to pass it through her nose. She is refusing placement of nasogastric tube by me. I think she will benefit from this but she wouldn't budge at this time. So treat the nausea with multiple medications for now. Patient needs a risk hydration given the increased lactate. I would like to tentatively plan for a CT enterography for Friday. This is done with interventional radiology and would not be available until Friday. Maybe we can find a fixed obstruction that can be amenable to surgery otherwise this would just need medical management. Consult Dr. Smith when he comes back on Friday with regards to her Crohn's disease. Vital Signs Vital Signs Date Time Temp Pulse Resp B/P (MAP) Pulse Ox O2 Delivery O2 Flow Rate FiO2 04/18/19 19:16 97.7 110 18 194/101 98 04/18/19 15:31 Room Air Laboratory Data Labs 24H Laboratory Tests 2 04/18/19 16:35: POC Glucose (Misc Panel) 225H, POC Sodium (Misc Panel) 136, POC Potassium (Misc Panel) 3.9, POC Chloride (Misc Panel) 98, POC Total CO2 (Misc Panel) 21.0L, POC Blood Urea Nitrogen (Misc Panel 9, POC Ionized Calcium (Misc Panel) 4.5, POC Creatinine (Misc Panel) 0.5L, POC Hematocrit (Misc Panel) 33.0L 04/18/19 16:36: Immature Granulocyte % (Auto) 0.8, White Blood Count 9.2, Red Blood Count 3.58L, Hemoglobin 11.2L, Hematocrit 32.7L, Mean Corpuscular Volume 91.3, Mean Corpuscular Hemoglobin 31.3, Mean Corpuscular Hemoglobin Concent 34.3, Red Cell Distribution Width 13.8, Platelet Count 267, Neutrophils (%) (Auto) 81.8H, Lymphocytes (%) (Auto) 10.7L, Monocytes (%) (Auto) 5.2H, Eosinophils (%) (Auto) 1.1, Basophils (%) (Auto) 0.4, Neutrophils # (Auto) 7.5, Lymphocytes # (Auto) 1.0L, Monocytes # (Auto) 0.5, Eosinophils # (Auto) 0.1, Basophils # (Auto) 0.0, Nucleated Red Blood Cells % (auto) 0.0, Lactic Acid Level 6.4*H, Magnesium Level 1.1L, Aspartate Amino Transf (AST/SGOT) 48H, Alanine Aminotransferase (ALT/SGPT) 37, Alkaline Phosphatase 97, Total Bilirubin 0.6, Direct Bilirubin 0.2, Total Creatine Kinase 63, Creatine Kinase MB 3.3, Creatine Kinase MB Relative Index 5.24H, Troponin I < 0.02, Total Protein 6.8, Albumin 3.7, Albumin/Globulin Ratio 1.19, Lipase 141 CBC/BMP Laboratory Tests 04/18/19 16:36 Red Blood Count 3.58 L, Mean Corpuscular Volume 91.3, Mean Corpuscular Hemoglo bin 31.3, Mean Corpuscular Hemoglobin Concent 34.3, Red Cell Distribution Width 13.8, Neutrophils (%) (Auto) 81.8 H, Lymphocytes (%) (Auto) 10.7 L, Monocytes (%) (Auto) 5.2 H, Eosinophils (%) (Auto) 1.1, Basophils (%) (Auto) 0.4, Neutrophils # (Auto) 7.5, Lymphocytes # (Auto) 1.0 L, Monocytes # (Auto) 0.5, Eosinophils # (Auto) 0.1, Basophils # (Auto) 0.0 Microbiology Microbiology 04/18/19 Blood Culture, Received Pending 04/18/19 Blood Culture, Received Pending Home Medications Scheduled Amlodipine Besylate (Amlodipine Besylate) 2.5 Mg Tab, 2.5 MG PO DAILY, (Reported) Atorvastatin Calcium (Atorvastatin Calcium) 10 Mg Tab, 10 MG PO QHS, (Reported) Black Cohosh Root (Black Cohosh) 200 Mg Capsule, 200 MG PO BID, (Reported) Calcium Carbonate/Vitamin D3 (Calcium 600-Vit D3 400 Tablet) 1 Each Tablet, 1 TAB PO BID, (Reported) Cholecalciferol (Vitamin D3) (Vitamin D3) 1,000 Unit Tab, 1,000 UNIT PO DAILY, (Reported) Cyanocobalamin (Vitamin B-12) (Vitamin B-12) 1,000 Mcg Tab, 1,000 MCG PO DAILY, (Reported) Enalapril Maleate (Enalapril Maleate) 20 Mg Tab, 20 MG PO DAILY, (Reported) Ferrous Sulfate (Ferrous Sulfate) 325 Mg Tab, 325 MG PO BID, (Reported) Gabapentin (Gabapentin) 300 Mg Cap, 300 MG PO TID, (Reported) Hydrochlorothiazide (Hydrochlorothiazide) 25 Mg Tab, 25 MG PO DAILY, (Reported) Magnesium Oxide (Magnesium Oxide) 250 Mg Tab, 250 MG PO DAILY, (Reported) Meloxicam (Meloxicam) 15 Mg Tab, 15 MG PO DAILY, (Reported) Metformin HCl (Metformin HCl) 1,000 Mg Tab, 1,000 MG PO BIDWM, (Reported) Pantoprazole Sodium (Pantoprazole Sodium) 40 Mg Tab, 40 MG PO DAILY, (Reported) Ustekinumab (Stelara) 90 Mg/1 Ml Syringe, 90 MG SC ASDIRECTED, (Reported) EVERY 8 WEEKS Allergies Coded Allergies: ciprofloxacin (Verified Allergy, Intermediate, rash, 01/27/19) indomethacin (Verified Allergy, Intermediate, rash, 01/27/19) rofecoxib (Verified Allergy, Unknown, 01/27/19) tomato (Verified Allergy, Unknown, 01/27/19) diazepam (Verified Adverse Reaction, Mild, agitation, 01/27/19) RAEGAN GOMEZ MD Apr 18, 2019 19:46
[2019-04-18] MEDS: MORPHINE 4 MG/ML 1ML VIAL/SYRINGE (J2270) IV PRN ×2 (20:46→23:54)
[2019-04-18] MEDS ORDERED: HumaLOG INSULIN (NovoLOG) PER UNIT SC SCH (21:00)
[2019-04-18] MEDS ORDERED: GLUCAGON FOR INJ 1 MG VIAL (J1610) SC PRN (21:00)
[2019-04-18] MEDS ORDERED: DEXTROSE 50% 50 ML SYRINGE IV PRN (21:00)
[2019-04-18] MEDS ORDERED: methylPREDNISolone INJ 40 MG/1 ML VIAL (J2920) IV SCH (21:00)
[2019-04-18] MEDS ORDERED: GLUCOSE 4 GM CHEW TABLET PO PRN (21:00)
--- NOTE | 2019-04-18 21:23 | REPVR ---
EXAM: US Duplex Left Lower Extremity Veins, Limited EXAM DATE/TIME: 04/18/2019 9:09 PM CLINICAL HISTORY: 63 years old, female; Pain; Leg, upper; Left; Additional info: Pain/hx factor v TECHNIQUE: Imaging protocol: Real-time Duplex ultrasound of the Left Lower Extremity with 2-D dsouza scale, color Doppler flow and spectral waveform analysis with image documentation. Limited exam focused on the left lower extremity veins. COMPARISON: No relevant prior studies available. FINDINGS: Left common femoral vein, superficial femoral vein, greater saphenous vein and popliteal vein are evaluated Veins appear normally compressible with no intraluminal filling defects. Doppler waveforms and flow directionality are normal. No abnormal focal fluid collections identified. IMPRESSION: No evidence of deep venous thrombosis in the left lower extremity venous system. Electronically signed by: Lars Ugarte On 04/18/2019 21:23:01 PM
--- NOTE | 2019-04-18 21:37 | HPEPDOC ---
General Date of Admission Apr 18, 2019 at 20:47 Date of Service: Apr 18, 2019 Chief Complaint The patient is a 63-year-old female admitted with a reason for visit of Crohns Disease, Small Bowel Obstruction. Source: Patient Exam Limitations: No limitations Severity: Moderate History of Present Illness 63 year of female presented to the ED with sudden onset severe abdominal pain from 2 pm today with nausea and vomiting. The pain is crampy in nature 10/10 in tensity when the cramps come located in the upper abdomen. Extending across from the right to left like a band. Associated with 6 to 8 times of vomiting. No diarrhea. In the ED she was found to have Partial small bowel obstruction. Seen by surgery. Patient refused NG tube after 2 failed attempts. Home Medications Scheduled Amlodipine Besylate (Amlodipine Besylate) 2.5 Mg Tab, 2.5 MG PO DAILY, (Reported) Atorvastatin Calcium (Atorvastatin Calcium) 10 Mg Tab, 10 MG PO QHS, (Reported) Black Cohosh Root (Black Cohosh) 200 Mg Capsule, 200 MG PO BID, (Reported) Calcium Carbonate/Vitamin D3 (Calcium 600-Vit D3 400 Tablet) 1 Each Tablet, 1 TAB PO BID, (Reported) Cholecalciferol (Vitamin D3) (Vitamin D3) 1,000 Unit Tab, 1,000 UNIT PO DAILY, (Reported) Cyanocobalamin (Vitamin B-12) (Vitamin B-12) 1,000 Mcg Tab, 1,000 MCG PO DAILY, (Reported) Enalapril Maleate (Enalapril Maleate) 20 Mg Tab, 20 MG PO DAILY, (Reported) Ferrous Sulfate (Ferrous Sulfate) 325 Mg Tab, 325 MG PO BID, (Reported) Gabapentin (Gabapentin) 300 Mg Cap, 300 MG PO TID, (Reported) Hydrochlorothiazide (Hydrochlorothiazide) 25 Mg Tab, 25 MG PO DAILY, (Reported) Magnesium Oxide (Magnesium Oxide) 250 Mg Tab, 250 MG PO DAILY, (Reported) Meloxicam (Meloxicam) 15 Mg Tab, 15 MG PO DAILY, (Reported) Metformin HCl (Metformin HCl) 1,000 Mg Tab, 1,000 MG PO BIDWM, (Reported) Pantoprazole Sodium (Pantoprazole Sodium) 40 Mg Tab, 40 MG PO DAILY, (Reported) Ustekinumab (Stelara) 90 Mg/1 Ml Syringe, 90 MG SC ASDIRECTED, (Reported) EVERY 8 WEEKS Allergies Coded Allergies: ciprofloxacin (Verified Allergy, Intermediate, rash, 01/27/19) indomethacin (Verified Allergy, Intermediate, rash, 01/27/19) rofecoxib (Verified Allergy, Unknown, 01/27/19) tomato (Verified Allergy, Unknown, 01/27/19) diazepam (Verified Adverse Reaction, Mild, agitation, 01/27/19) Past Medical History Medical History Hypertension Dyslipidemia Crohn's disease Diabetes mellitus Gastroesophageal reflux disease History of renal calculi Arthritis Tendinitis Obesity Diverticulosis Surgical History Colonoscopy Small bowel enteroscopy Diagnostic laparoscopy Incision and drainage of right breast mass Left percutaneous nephrolithotripsy with left antegrade double-J stent placement section Family History Father: , 85, myocardial infarction Mother: , metastatic cancer, on 09/26/2012 Siblings: - Brothers 3: Alive, diabetes mellitus, myocardial infarction Children: - Daughters 2: Alive, endometriosis, scoliosis - Son 1: Alive, healthy Social History * Smoker: former Smoker (quit 36 years ago) Alcohol: Denies Drugs: denies A-FIB/CHADSVASC A-FIB History Current/History of A-Fib/PAF?: No Review of Systems Constitutional: Denies: Chills, Fever, Night Sweats Eyes: Denies: Pain, Vision change ENT: Denies: Head Aches, Ear Pain, Dysphagia Skin: Denies: Rash, Lesions, Breakdown Pulmonary: Denies: Dyspnea, Cough Cardiovascular: Denies: Chest Pain, Palpitations, Orthopnea, Paroxysmal Noc. Dyspnea, Lt Headedness Gastrointestinal: Reports: Nausea, Vomiting, Abdominal Pain; Denies: Diarrhea, Constipation, Melena, Hematochezia Genitourinary: Denies: Dysuria, Frequency, Incontinence, Retention Hematologic: Denies: Bruising, Bleeding Excessively Musculoskeletal: Denies: Neck Pain, Back Pain, Joint Pain, Muscle Pain, Spasms Neurological: Denies: Weakness, Numbness, Change in speech, Confusion Physical Examination General Exam: Positive: Alert, Cooperative, Moderate Distress (due to abdoinal pain) Eye Exam: Positive: PERRLA, Conjunctiva & lids normal, EOMI; Negative: Sclera icteric ENT Exam: Positive: Atraumatic, Mucous membr. moist/pink, Pharynx Normal Neck Exam: Positive: Supple; Negative: JVD, thyromegaly Chest Exam: Positive: Clear to auscultation, Normal air movement, Diminished Heart Exam: Positive: Rate Normal, Regular Rhythm, Normal S1, Normal S2; Negative: Murmurs, Rubs Abdomen Exam: Positive: BS Hyperactive, Soft, Tenderness (in bhaskar upper part of the abdomen) Extremity Exam: Positive: Normal pulses; Negative: Clubbing, Cyanosis, Edema Skin Exam: Positive: Nl turgor and temperature; Negative: Breakdown, Lesion Psych Exam: Positive: Mental status NL, Mood NL, Oriented x 3 Vital Signs Vital Signs Date Time Temp Pulse Resp B/P (MAP) Pulse Ox O2 Delivery O2 Flow Rate FiO2 04/18/19 20:46 20 99 04/18/19 19:16 97.7 110 194/101 04/18/19 15:31 Room Air Laboratory Data Labs 24H Laboratory Tests 2 04/18/19 16:35: POC Glucose (Misc Panel) 225H, POC Sodium (Misc Panel) 136, POC Potassium (Misc Panel) 3.9, POC Chloride (Misc Panel) 98, POC Total CO2 (Misc Panel) 21.0L, POC Blood Urea Nitrogen (Misc Panel 9, POC Ionized Calcium (Misc Panel) 4.5, POC Creatinine (Misc Panel) 0.5L, POC Hematocrit (Misc Panel) 33.0L 04/18/19 16:36: Immature Granulocyte % (Auto) 0.8, White Blood Count 9.2, Red Blood Count 3.58L, Hemoglobin 11.2L, Hematocrit 32.7L, Mean Corpuscular Volume 91.3, Mean Corpuscular Hemoglobin 31.3, Mean Corpuscular Hemoglobin Concent 34.3, Red Cell Distribution Width 13.8, Platelet Count 267, Neutrophils (%) (Auto) 81.8H, Lymphocytes (%) (Auto) 10.7L, Monocytes (%) (Auto) 5.2H, Eosinophils (%) (Auto) 1.1, Basophils (%) (Auto) 0.4, Neutrophils # (Auto) 7.5, Lymphocytes # (Auto) 1.0L, Monocytes # (Auto) 0.5, Eosinophils # (Auto) 0.1, Basophils # (Auto) 0.0, Nucleated Red Blood Cells % (auto) 0.0, Lactic Acid Level 6.4*H, Magnesium Level 1.1L, Aspartate Amino Transf (AST/SGOT) 48H, Alanine Aminotransferase (ALT/SGPT) 37, Alkaline Phosphatase 97, Total Bilirubin 0.6, Direct Bilirubin 0.2, Total Creatine Kinase 63, Creatine Kinase MB 3.3, Creatine Kinase MB Relative Index 5.24H, Troponin I < 0.02, Total Protein 6.8, Albumin 3.7, Albumin/Globulin Ratio 1.19, Lipase 141 CBC/BMP Laboratory Tests 04/18/19 16:36 Red Blood Count 3.58 L, Mean Corpuscular Volume 91.3, Mean Corpuscular Hemoglobin 31.3, Mean Corpuscular Hemoglobin Concent 34.3, Red Cell Distribution Width 13.8, Neutrophils (%) (Auto) 81.8 H, Lymphocytes (%) (Auto) 10.7 L, Monocytes (%) (Auto) 5.2 H, Eosinophils (%) (Auto) 1.1, Basophils (%) (Auto) 0.4, Neutrophils # (Auto) 7.5, Lymphocytes # (Auto) 1.0 L, Monocytes # (Auto) 0.5, Eosinophils # (Auto) 0.1, Basophils # (Auto) 0.0 Microbiology Microbiology 04/18/19 Blood Culture, Received Pending 04/18/19 Blood Culture, Received Pending Assessment/Plan 63 year of female presented to the ED with sudden onset severe abdominal pain from 2 pm today with nausea and vomiting. The pain is crampy in nature 10/10 in tensity when the cramps come located in the upper abdomen. Extending across from the right to left like a band. Associated with 6 to 8 times of vomiting. No diarrhea. In the ED she was found to have Partial small bowel obstruction. Partial SBO will keep patient NPO except for meds IVF, zofran, pain control with morphine. NG in the am if symptoms do not improve overnight. I discussed the patient with the Surgeon, he did not think there was a Crohn's flare going on as the CT abdomen now looks same as in sep and last year. So will not give any steroids. Will get CRP if it is very elevated then will add steroids Appreciate surgery input. follow blood cultures. If positive will need antibiotics. Lactacidosis form severe vomiting and mild dehydration probably ? Bowel ischemia. will continue IVF recheck in 4 hours from first Hypertensive urgency this is due to her severe episodes of pain Morphine for pain control continue lisinopril and amlodipine. Hypomagnesemia replaced Crohn's disease on Stellara. Unsure if there is a flare going on not will get CRP. IF high will give steroids Diabetes non insulin dependent with neuropathy lispro sliding scale for HS protocol. FS q 6 hours. continue gabapentin hold metformin. Hyperlipidemia will hold statin till patient eating PO. GERD continue pantoprazole. Iron def anemia will hold iron till eating po Plan / VTE VTE Prophylaxis Ordered?: Yes DORIAN FLORES MD Apr 18, 2019 21:37
[2019-04-18] MEDS: GABAPENTIN 300 MG CAP PO SCH (21:45)
[2019-04-18] MEDS: HEPARIN SOD (PORCINE) 5000 UNITS/ML VIAL SC SCH (21:47)
[2019-04-18] MEDS: ONDANSETRON 4MG/2ML VIAL (J2405) IV PRN (21:48)
[2019-04-18] MEDS: NS 1,000 ML IV SCH (21:48)
[2019-04-18 22:20] VITALS: BP 140/80
[2019-04-18] MEDS: HumaLOG INSULIN (NovoLOG) PER UNIT SC SCH (23:55)
[2019-04-19] MEDS: MORPHINE 4 MG/ML 1ML VIAL/SYRINGE (J2270) IV PRN ×4 (03:29→20:02)
[2019-04-19] MEDS: HumaLOG INSULIN (NovoLOG) PER UNIT SC SCH ×3 (05:55→17:37)
[2019-04-19 06:00] VITALS: BP 141/71
[2019-04-19 07:09] LABS: BASO % 0.3 % (0.0-1.0); EOS % 0.4 % (0.0-3.0); HEMATOCRIT 31.5 % (36.0-47.0); HEMOGLOBIN 10.2 g/dl (12.0-15.5); LYMPH # 1.1 10^3/uL (1.5-5.0); LYMPH % 10.1 % (24.0-44.0); MEAN CORPUSCULAR HEMOGLOBIN 29.8 pg (27.0-33.0); MEAN CORPUSCULAR HGB CONC 32.4 g/dl (32.0-36.5); MEAN CORPUSCULAR VOLUME 92.1 fl (80.0-96.0); MONO # 0.8 10^3/uL (0.0-0.8); MONO % 6.9 % (0.0-5.0); NEUTROPHILS # 9.2 10^3/uL (1.5-8.5); NEUTROPHILS % 81.9 % (36.0-66.0); PLATELET COUNT, AUTOMATED 306 10^3/uL (150-450); RED BLOOD COUNT 3.42 10^6/uL (4.00-5.40); WHITE BLOOD COUNT 11.2 10^3/uL (4.0-10.0)
[2019-04-19 07:15] LABS: BLOOD UREA NITROGEN 9 MG/DL (7-18); C REACTIVE PROTEIN QUANTITATIV 0.65 MG/DL (0.00-0.30); CALCIUM LEVEL 7.8 MG/DL (8.8-10.2); CARBON DIOXIDE LEVEL 27 MEQ/L (21-32); CHLORIDE LEVEL 104 MEQ/L (98-107); CREATININE FOR GFR 0.77 MG/DL (0.55-1.30); GLOMERULAR FILTRATION RATE > 60.0 (>45); GLUCOSE, FASTING 131 MG/DL (70-100); MAGNESIUM LEVEL 1.7 MG/DL (1.8-2.4); POTASSIUM SERUM 4.1 MEQ/L (3.5-5.1); SODIUM LEVEL 138 MEQ/L (136-145)
[2019-04-19] MEDS: HEPARIN SOD (PORCINE) 5000 UNITS/ML VIAL SC SCH ×2 (07:41→20:01)
[2019-04-19] MEDS: GABAPENTIN 300 MG CAP PO SCH ×3 (07:44→20:01)
[2019-04-19] MEDS: PANTOPRAZOLE 40MG INJ (PROTONIX) (C9113) IV SCH (07:44)
[2019-04-19] MEDS: ENALAPRIL MALEATE 10 MG TAB PO SCH (07:45)
[2019-04-19] MEDS: NS 1,000 ML IV SCH ×2 (07:49→16:44)
[2019-04-19] MEDS ORDERED: PIPERACILLIN/TAZOBACTAM SOD 4.5 GM in D5W MINI-BAG PLUS 50 ML IV SCH (09:30)
[2019-04-19] MEDS: ONDANSETRON 4MG/2ML VIAL (J2405) IV PRN ×2 (09:49→22:13)
--- NOTE | 2019-04-19 10:22 | PHACANCOPD ---
PHARMACY VANCOMYCIN DOSING Pt Demographics Demographics Patient Age:63 , Weight:80.700 , Gender: female Adjusted Body Weight Date: 04/19/19, Adjusted Body Weight: Kg Events Past 24 Hours Events Past 24 Hours: YES: Elevation in WBC; NO: Dialysis, Diuretic Therapy, Change in CrCl, Fever, Pending Diagnostics, Pending Procedures, Other Vancomycin Vancomycin indication: SEPSIS Vancomycin Target Ranges: 10-20 mcg/ml Vancomycin Load Y/N: Yes Load Dose Date Time Vancomycin Load Dose: 2G Date: 04/19 Time: 1100 Vancomycin Dose Date: 04/19/19. Current Vancomycin Dose: [1g q12h] Intermittent Dosing?: No Labs Labs Item Value Date Time White Blood Count 9.2 10^3/uL 04/18/19 1636 White Blood Count 11.2 10^3/uL H 04/19/19 0625 C-Reactive Protein, Quantitative 0.65 MG/DL H 04/19/19 0625 Creatinine 0.77 MG/DL 04/19/19 0625 POC Creatinine (Misc Panel) 0.5 MG/DL L 04/18/19 1635 Micro Microbiology 04/19/19 Blood Culture, Received Pending 04/18/19 Blood Culture - Preliminary, Resulted 04/18/19 Blood Culture - Preliminary, Resulted Creatinine Clearance Date:04/19/19. Creatinine Clearance: [~47ML/MIN]. Pending Labs VANCO TROUGH SCHEDULED 04/20 AT 1000 Assessment and Plan Maintaining Current Dose?: Yes Reason for dose change: No Dose Change Pharmacist Note Pharmacist Note Date: 04/19/19. Pharmacist note: Patient has been started on vanco and zosyn for sepsis. Blood cultures are preliminary positive for gram positive cocci in chains. Repeat blood culture is pending. No previous history of vanco at our facility in the past. I've started her on Vanco 2g IV load, followed by a 1g every 12 hours dose. Vanco trough is scheduled for tomorrow morning at 1000 and we will continue to monitor and make any adjustments as necessary. Bryce Calvillo Pharm.D. Apr 19, 2019 10:22
--- NOTE | 2019-04-19 11:09 | IPNPDOC ---
Subjective General Date/Time Seen The patient was seen on 04/19/19 at 11:06. Subject Chief Complaint/History The patient is a 63-year-old female admitted with a reason for visit of Crohns Disease, Small Bowel Obstruction. Patient reports feeling midly better today, still with abdominal discomfort but no nausea, vomiting. Current Medications Current Medications Current Medications Medications (Trade) Dose Ordered Sig/Jorge Route PRN Reason Start Time Stop Time Status Last Admin Dose Admin Amlodipine Besylate (Norvasc) 2.5 mg DAILY PO 04/19/19 09:00 04/19/19 07:44 Dextrose (Dextrose 50%) 25 ml ASDIRECTED PRN IV SEE LABEL COMMENTS 04/18/19 21:00 Enalapril Maleate (Vasotec) 20 mg DAILY PO 04/19/19 09:00 04/19/19 07:45 Gabapentin (Neurontin) 300 mg TID PO 04/18/19 21:00 04/19/19 07:44 Glucagon (Glucagon) 1 mg ASDIRECTED PRN SC SEE LABEL COMMENTS 04/18/19 21:00 Glucose (Glucose) 16 GM ASDIRECTED PRN PO SEE LABEL COMMENTS 04/18/19 21:00 Heparin Sodium (Porcine) (Heparin) 5,000 units Q12H SC 04/18/19 21:00 04/18/19 21:47 Home Med (Med Rec Complete!) ASDIRECTED XX 04/18/19 18:30 04/18/19 18:32 DC Insulin Human Lispro (HumaLOG INSULIN) SEE PROTOCOL TABLE Q6H SC 04/19/19 00:00 Insulin Human Lispro (HumaLOG INSULIN) See Protocol Table QHS [place] 04/18/19 21:00 04/18/19 22:57 DC Methylprednisolone (SOLU medrol) 40 mg Q12H IV 04/18/19 21:00 04/18/19 21:03 DC Morphine Sulfate (Morphine Sulfate Inj) 2 mg Q2HP PRN IV BREAKTHROUGH PAIN 04/18/19 20:45 04/19/19 07:45 Morphine Sulfate (Morphine Sulfate Inj) 2 mg Q30M PRN IV MODERATE PAIN (PS 5-7) 04/18/19 17:00 04/18/19 19:16 DC 04/18/19 19:16 Ondansetron HCl (ZOFRAN INJection) 4 mg Q6HP PRN IV NAUSEA OR VOMITING 04/18/19 21:00 04/19/19 09:49 Pantoprazole Sodium (Protonix) 40 mg Q24H IV 04/19/19 08:00 04/19/19 07:44 Piperacillin Sod/ Tazobactam Sod 4.5 gm/Dextrose 50 ml @ 50 mls/hr Q8H IV 04/19/19 09:30 04/19/19 09:51 DC Piperacillin Sod/ Tazobactam Sod 4.5 gm/Dextrose 50 ml @ 50 mls/hr Q8H IV 04/19/19 13:00 Sodium Chloride 1,000 ml @ 100 mls/hr Q10H IV 04/18/19 21:00 04/19/19 07:49 Vancomycin HCl 1000 mg/IV Miscellaneous Supplies 1 each/ Dextrose 270 ml @ 270 mls/hr Q12H IV 04/19/19 11:00 Allergies Coded Allergies: ciprofloxacin (Verified Allergy, Intermediate, rash, 01/27/19) indomethacin (Verified Allergy, Intermediate, rash, 01/27/19) rofecoxib (Verified Allergy, Unknown, 01/27/19) tomato (Verified Allergy, Unknown, 01/27/19) diazepam (Verified Adverse Reaction, Mild, agitation, 01/27/19) Objective Physical Examination Examination GENERAL APPEARANCE:[Patient seen, laying in bed, awake, alert, and oriented. Comfortable, in no acute distress]. SKIN: [Warm and moist]. HEENT: [Normocephalic, atraumatic. Epes palpebral conjunctiva, anicteric sclerae. Lips and mucosa appear moist]. NECK: [Supple, no thyromegaly. No obvious jugular venous distention]. LUNGS: [Clear to auscultation bilaterally. No wheezing appreciated]. HEART: [No chest wall abnormalities. Regular rate and rhythm with no murmurs appreciated]. ABDOMEN: Abdomen is , soft, . [No hepatosplenomegaly. No umbilical or groin herniations, nondistended. No noticeable rebound or guarding. No grimacing with palpation. No rebound tenderness. No masses appreciated]. EXTREMITIES: [Extremities have no deformities. No edema identified]. Vital Signs Vital Signs Date Time Temp Pulse Resp B/P (MAP) Pulse Ox O2 Delivery O2 Flow Rate FiO2 04/19/19 07:55 16 04/19/19 07:45 141/71 04/19/19 07:44 81 04/19/19 06:00 98.2 96 04/18/19 15:31 Room Air I&Os I&O- Last 24 Hours up to 6 AM 04/19/19 06:00 Intake Total 2100 ml Output Total 900 ml Balance 1200 ml Laboratory Data Labs 24H Laboratory Tests 2 04/18/19 16:35: POC Glucose (Misc Panel) 225H, POC Sodium (Misc Panel) 136, POC Potassium (Misc Panel) 3.9, POC Chloride (Misc Panel) 98, POC Total CO2 (Misc Panel) 21.0L, POC Blood Urea Nitrogen (Misc Panel 9, POC Ionized Calcium (Misc Panel) 4.5, POC Creatinine (Misc Panel) 0.5L, POC Hematocrit (Misc Panel) 33.0L 04/18/19 16:36: Immature Granulocyte % (Auto) 0.8, White Blood Count 9.2, Red Blood Count 3.58L, Hemoglobin 11.2L, Hematocrit 32.7L, Mean Corpuscular Volume 91.3, Mean Corpuscular Hemoglobin 31.3, Mean Corpuscular Hemoglobin Concent 34.3, Red Cell Distribution Width 13.8, Platelet Count 267, Neutrophils (%) (Auto) 81.8H, Lymphocytes (%) (Auto) 10.7L, Monocytes (%) (Auto) 5.2H, Eosinophils (%) (Auto) 1.1, Basophils (%) (Auto) 0.4, Neutrophils # (Auto) 7.5, Lymphocytes # (Auto) 1.0L, Monocytes # (Auto) 0.5, Eosinophils # (Auto) 0.1, Basophils # (Auto) 0.0, Nucleated Red Blood Cells % (auto) 0.0, Lactic Acid Level 6.4*H, Magnesium Level 1.1L, Aspartate Amino Transf (AST/SGOT) 48H, Alanine Aminotransferase (ALT/SGPT) 37, Alkaline Phosphatase 97, Total Bilirubin 0.6, Direct Bilirubin 0.2, Total Creatine Kinase 63, Creatine Kinase MB 3.3, Creatine Kinase MB Relative Index 5.24H, Troponin I < 0.02, Total Protein 6.8, Albumin 3.7, Albumin/Globulin Ratio 1.19, Lipase 141 04/18/19 21:35: Bedside Glucose (Misc Panel) 208H 9/1/19 22:32: Lactic Acid Level 5.0*H 04/18/19 23:49: Bedside Glucose (Misc Panel) 217H 04/19/19 02:59: Lactic Acid Followup at 4 Hours 2.9*H 04/19/19 05:46: Bedside Glucose (Misc Panel) 132H 04/19/19 06:25: Immature Granulocyte % (Auto) 0.4, White Blood Count 11.2H, Red Blood Count 3.42L, Hemoglobin 10.2L, Hematocrit 31.5L, Mean Corpuscular Volume 92.1, Mean Corpuscular Hemoglobin 29.8, Mean Corpuscular Hemoglobin Concent 32.4, Red Cell Distribution Width 14.2, Platelet Count 306, Neutrophils (%) (Auto) 81.9H, Lymphocytes (%) (Auto) 10.1L, Monocytes (%) (Auto) 6.9H, Eosinophils (%) (Auto) 0.4, Basophils (%) (Auto) 0.3, Neutrophils # (Auto) 9.2H, Lymphocytes # (Auto) 1.1L, Monocytes # (Auto) 0.8, Eosinophils # (Auto) 0.0, Basophils # (Auto) 0.0, Nucleated Red Blood Cells % (auto) 0.0, Anion Gap 7L, Glomerular Filtration Rate > 60.0, Blood Urea Nitrogen 9, Creatinine 0.77, Sodium Level 138, Potassium Level 4.1, Chloride Level 104, Carbon Dioxide Level 27, Calcium Level 7.8L, Magnesium Level 1.7L, C-Reactive Protein, Quantitative 0.65H CBC/BMP Laboratory Tests 04/18/19 16:36 Red Blood Count 3.58 L, Mean Corpuscular Volume 91.3, Mean Corpuscular Hemoglobin 31.3, Mean Corpuscular Hemoglobin Concent 34.3, Red Cell Distribution Width 13.8, Neutrophils (%) (Auto) 81.8 H, Lymphocytes (%) (Auto) 10.7 L, Monocytes (%) (Auto) 5.2 H, Eosinophils (%) (Auto) 1.1, Basophils (%) (Auto) 0.4, Neutrophils # (Auto) 7.5, Lymphocytes # (Auto) 1.0 L, Monocytes # (Auto) 0.5, Eosinophils # (Auto) 0.1, Basophils # (Auto) 0.0 04/19/19 06:25 Red Blood Count 3.42 L, Mean Corpuscular Volume 92.1, Mean Corpuscular Hemoglobin 29.8, Mean Corpuscular Hemoglobin Concent 32.4, Red Cell Distribution Width 14.2, Neutrophils (%) (Auto) 81.9 H, Lymphocytes (%) (Auto) 10.1 L, Monocytes (%) (Auto) 6.9 H, Eosinophils (%) (Auto) 0.4, Basophils (%) (Auto) 0.3, Neutrophils # (Auto) 9.2 H, Lymphocytes # (Auto) 1.1 L, Monocytes # (Auto) 0.8, Eosinophils # (Auto) 0.0, Basophils # (Auto) 0.0, Calcium Level 7.8 L Microbiology Microbiology 04/19/19 Blood Culture, Received Pending 04/18/19 Blood Culture - Preliminary, Resulted 04/18/19 Blood Culture - Preliminary, Resulted Impression Crohn's Disease small bowel obstruction will arrange for CT enterogram tomorrow (not available today) to see if there is fixed stricture that is causing her obstruction. Her abdomen looks softer though still distended, so keep her npo for now will give her one dose of magnesium citrate to eliminate the barium from the CT yesterday for the test tomorrow. will need to speak to Dr. Martinez regarding her Crohn's disease when he comes back tomorrow. Plan / VTE VTE Prophylaxis Ordered?: Yes RAEGAN GOMEZ MD Apr 19, 2019 11:08
[2019-04-19] MEDS ORDERED: MAGNESIUM CITRATE 300 ML BTL PO ONE (11:15)
[2019-04-19] MEDS: VANCOMYCIN HCL 1,000 MG, VIAL MATE ADAPTER 1 EACH in D5W 250 ML IV SCH ×2 (11:29→23:38)
[2019-04-19] MEDS ORDERED: VANCOMYCIN HCL 1,000 MG, VIAL MATE ADAPTER 1 EACH in D5W 250 ML IV ONE (12:00)
[2019-04-19] MEDS: PIPERACILLIN/TAZOBACTAM SOD 4.5 GM in D5W MINI-BAG PLUS 50 ML IV SCH ×2 (13:44→20:01)
[2019-04-19 14:00] VITALS: BP 121/68
--- NOTE | 2019-04-19 17:22 | IPNPDOC ---
Text Note Date of Service The patient was seen on 04/19/19. NOTE Subjective: Patient complains of moderate abdominal pain, diffuse. She denies diarrhea. Patient denies fever, chills, shortness of breath, palpitations, dysuria Objective: General: NAD HEENT: PERRLA, EOMI Lungs: Clear to auscultation Abdomen: Mildly tender on palpation, no rebound, no rigidity Extremities: +1 bilateral edema lower extremities Neuro: Nonfocal, cranial nerves intact Assessment and plan: Patient is 63 years old female with past medical history of Crohn disease, hypertension presented to hospital with sudden onset of abdominal pain, distention and vomiting. She follows up with Dr. Martinez. She currently receives therapy with Stelara which she gets every 8 weeks. She has failed 3 other regimens including Imuran, Remicade and Entyvio. In emergency room CT abdomen showed Partial small bowel obstruction, right mid abdomen, likely secondary to adhesions with no identifiable mass or evidence of volvulus. Lactic acid on admission was elevated to 6.4 trended down to 2.9. Blood culture came back positive for gram positive cocci. IV steroids for possible Crohn flare up initiated. Surgical team consult outpatient and recommended nothing by mouth, CT enterogram tomorrow. Partial SBO will keep patient NPO except for meds Surgical team follows Pain management Patient doesn't want NG tube CT enterogram tomorrow per surgical team Elevated lactic acid Trended down Most likely attributed to intestinal ischemia due to small bowel obstruction Blood culture positive for gram-positive cocci. Could be contamination however there is high possibility for bacterial translocation. Repeat blood culture Broad-spectrum antibiotics for now Continue to monitor lactic acid Procalcitonin Hypertensive urgency Continue home cardioprotective medication Hypomagnesemia replaced Crohn's disease Unusual presentation for Crohn flare up. 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 GERD PPI Iron def anemia On iron supplement VS,Fishbone, I+O VS, Fishbone, I+O Laboratory Tests 04/19/19 06:25 Red Blood Count 3.42 L, Mean Corpuscular Volume 92.1, Mean Corpuscular Hemo globin 29.8, Mean Corpuscular Hemoglobin Concent 32.4, Red Cell Distribution Width 14.2, Neutrophils (%) (Auto) 81.9 H, Lymphocytes (%) (Auto) 10.1 L, Monocytes (%) (Auto) 6.9 H, Eosinophils (%) (Auto) 0.4, Basophils (%) (Auto) 0.3, Neutrophils # (Auto) 9.2 H, Lymphocytes # (Auto) 1.1 L, Monocytes # (Auto) 0.8, Eosinophils # (Auto) 0.0, Basophils # (Auto) 0.0, Calcium Level 7.8 L Vital Signs Date Time Temp Pulse Resp B/P (MAP) Pulse Ox O2 Delivery O2 Flow Rate FiO2 04/19/19 15:50 16 04/19/19 14:00 96.9 85 121/68 (85) 97 04/18/19 15:31 Room Air l I&O- Last 24 Hours up to 6 AM 04/19/19 06:00 Intake Total 2100 ml Output Total 900 ml Balance 1200 ml CANDELARIO LOWRY DO Apr 19, 2019 17:21
[2019-04-19 22:00] VITALS: BP 118/64
[2019-04-20] MEDS: MORPHINE 4 MG/ML 1ML VIAL/SYRINGE (J2270) IV PRN ×3 (01:49→10:35)
[2019-04-20] MEDS: NS 1,000 ML IV SCH ×3 (03:00→23:07)
[2019-04-20] MEDS: PIPERACILLIN/TAZOBACTAM SOD 4.5 GM in D5W MINI-BAG PLUS 50 ML IV SCH ×2 (05:19→12:41)
[2019-04-20 06:00] VITALS: BP 118/63
[2019-04-20] MEDS: HumaLOG INSULIN (NovoLOG) PER UNIT SC SCH ×4 (06:00→17:12)
[2019-04-20 06:13] LABS: BASO % 0.3 % (0.0-1.0); EOS # 0.1 10^3/uL (0.0-0.5); EOS % 2.3 % (0.0-3.0); HEMATOCRIT 29.1 % (36.0-47.0); HEMOGLOBIN 9.4 g/dl (12.0-15.5); LYMPH % 16.2 % (24.0-44.0); MEAN CORPUSCULAR HEMOGLOBIN 29.7 pg (27.0-33.0); MEAN CORPUSCULAR HGB CONC 32.3 g/dl (32.0-36.5); MEAN CORPUSCULAR VOLUME 92.1 fl (80.0-96.0); MONO # 0.5 10^3/uL (0.0-0.8); MONO % 7.8 % (0.0-5.0); NEUTROPHILS # 4.4 10^3/uL (1.5-8.5); NEUTROPHILS % 73.1 % (36.0-66.0); PLATELET COUNT, AUTOMATED 242 10^3/uL (150-450); RED BLOOD COUNT 3.16 10^6/uL (4.00-5.40); WHITE BLOOD COUNT 6.1 10^3/uL (4.0-10.0)
[2019-04-20 06:31] LABS: BLOOD UREA NITROGEN 8 MG/DL (7-18); CALCIUM LEVEL 7.7 MG/DL (8.8-10.2); CARBON DIOXIDE LEVEL 28 MEQ/L (21-32); CHLORIDE LEVEL 105 MEQ/L (98-107); CREATININE FOR GFR 0.74 MG/DL (0.55-1.30); GLOMERULAR FILTRATION RATE > 60.0 (>45); GLUCOSE, FASTING 152 MG/DL (70-100); POTASSIUM SERUM 3.7 MEQ/L (3.5-5.1); SODIUM LEVEL 138 MEQ/L (136-145)
[2019-04-20] MEDS ORDERED: VoLumen 0.1% SUSPENSION 450ML BOTTLE As Ordered ONE (07:54)
[2019-04-20] MEDS ORDERED: GLUCAGON FOR INJ 1 MG VIAL (J1610) As Ordered ONE (07:55)
[2019-04-20] MEDS ORDERED: ISOVUE-370 76% 100ML VIAL (Q9967) As Ordered ONE (07:55)
[2019-04-20] MEDS: ENALAPRIL MALEATE 10 MG TAB PO SCH (09:37)
[2019-04-20] MEDS: GABAPENTIN 300 MG CAP PO SCH ×3 (09:38→20:50)
[2019-04-20] MEDS: PANTOPRAZOLE 40MG INJ (PROTONIX) (C9113) IV SCH (09:38)
[2019-04-20] MEDS: HEPARIN SOD (PORCINE) 5000 UNITS/ML VIAL SC SCH ×2 (09:38→20:49)
[2019-04-20] MEDS: MAGNESIUM CHLORIDE 64 MG TABCR (SLO MAG) PO SCH (09:38)
--- NOTE | 2019-04-20 09:49 | REP ---
Clinical: Crohn's disease. Technique: Axial contrast enhanced images of the abdomen and pelvis using low density oral contrast material and 100 ml Isovue 370 intravenous contrast material with images obtained in arterial and portal venous phase of enhancement. Coronal and sagittal re-formations obtained. Findings: Evaluation of the enteric system demonstrates normal appearance to the stomach, small and large bowel. No mural thickening, perienteric inflammatory stranding, or areas of stenosis/stricture are appreciated. There is no evidence for bowel obstruction. Incidental colonic and sigmoid diverticula noted without acute diverticulitis. A normal terminal ileum, appendix, and cecum identified in the right lower quadrant. Diffuse fatty infiltration to the liver noted without focal hepatic lesion. Spleen, pancreas, gallbladder, and bilateral adrenal glands are normal. The kidneys demonstrate bilateral cortical scarring, chronic perinephric stranding, 1.5 cm left renal simple cyst, and bilateral renal calculi measuring up to 4 mm. Evaluation of the pelvis demonstrates normal bladder and age-appropriate uterus/adnexa. Abdominal aorta and vasculature appears normal and without aneurysm or dissection and without significant atherosclerotic changes. Musculoskeletal structures demonstrate age-related degenerative changes without focal abnormality. Lung bases demonstrate mild chronic-appearing fibroatelectatic changes. Impression: 1. With the exception of scattered colonic/sigmoid diverticula, the enteric system is unremarkable in appearance and grossly normal. 2. Bilateral nephrolithiasis and 1.5 cm simple left renal cyst along with bilateral renal cortical scarring. 3. Hepatic steatosis. Electronically Signed by Charlie Ugarte MD 04/20/2019 09:41 A
[2019-04-20] MEDS: VANCOMYCIN HCL 1,000 MG, VIAL MATE ADAPTER 1 EACH in D5W 250 ML IV SCH (10:40)
[2019-04-20 14:00] VITALS: BP 157/74
[2019-04-20] MEDS: ONDANSETRON 4MG/2ML VIAL (J2405) IV PRN ×2 (14:17→23:13)
--- NOTE | 2019-04-20 19:37 | IPNPDOC ---
Text Note Date of Service The patient was seen on 04/20/19. NOTE Subjective: Patient's abdominal pain significantly subsided. She denies diarrh ea. Patient denies fever, chills, shortness of breath, palpitations, dysuria Objective: General: NAD HEENT: PERRLA, EOMI Lungs: Clear to auscultation Abdomen: Mildly tender on palpation, no rebound, no rigidity Extremities: +1 bilateral edema lower extremities Neuro: Nonfocal, cranial nerves intact Assessment and plan: Patient is 63 years old female with past medical history of Crohn disease, h ypertension presented to hospital with sudden onset of abdominal pain, distention and vomiting. She follows up with Dr. Martinez. She currently receives therapy with Stelara which she gets every 8 weeks. She has failed 3 other regimens including Imuran, Remicade and Entyvio. In emergency room CT abdomen showed Partial small bowel obstruction, right mid abdomen, likely secondary to adhesions with no identifiable mass or evidence of volvulus. Lactic acid on admission was elevated to 6.4 trended down to 2.9. Blood culture came back positive for gram positive cocci. Repeated blood culture was negative. IV steroids for possible Crohn flare up initiated. Surgical team consulted pt and recommended nothing by mouth. GI team recommended continue steroids and see patients in the outpatient. CT enterogram was done on 04/20/19, and it was negative for obstruction. Soft diet started. Anticipated discharge on 04/21/19. Partial SBO Improved Surgical team follows Pain management Patient doesn't want NG tube CT enterogram negative for obstruction Soft diet initiated Elevated lactic acid Trended down Most likely attributed to intestinal ischemia due to small bowel obstruction Initially Blood culture positive for gram-positive cocci. Repeated blood culture was negative. Most likely first blood culture positive due to contamination dc antibiotics Hypertensive urgency Continue home cardioprotective medication Hypomagnesemia replaced Crohn's disease Unusual presentation for Crohn flare up. Patient doesn't have diarrhea with blood Continue IV steroids for now. GI in the outpatient settings Diabetes non insulin dependent with neuropathy Glucose levels under control Diabetes diet Insulin sliding scale Hyperlipidemia Statin GERD PPI Iron def anemia On iron supplement VS,Fishbone, I+O VS, Fishbone, I+O Laboratory Tests 04/20/19 05:48 Red Blood Count 3.16 L, Mean Corpuscular Volume 92.1, Mean Corpuscular Hemoglobin 29.7, Mean Corpuscular Hemoglobin Concent 32.3, Red Cell Distribution Width 14.6 H, Neutrophils (%) (Auto) 73.1 H, Lymphocytes (%) (Auto) 16.2 L, Monocytes (%) (Auto) 7.8 H, Eosinophils (%) (Auto) 2.3, Basophils (%) (Auto) 0.3, Neutrophils # (Auto) 4.4, Lymphocytes # (Auto) 1.0 L, Monocytes # (Auto) 0.5, Eosinophils # (Auto) 0.1, Basophils # (Auto) 0.0, Calcium Level 7.7 L Vital Signs Date Time Temp Pulse Resp B/P (MAP) Pulse Ox O2 Delivery O2 Flow Rate FiO2 04/20/19 14:00 97.0 82 18 157/74 (101) 96 04/18/19 15:31 Room Air I&O- Last 24 Hours up to 6 AM 04/20/19 06:00 Intake Total 1300 ml Output Total 2000 ml Balance -700 ml CANDELARIO LOWRY DO Apr 20, 2019 19:37
[2019-04-20] MEDS: PERCOCET 5MG/325MG TAB PO PRN (20:50)
[2019-04-20] MEDS ORDERED: HumaLOG INSULIN (NovoLOG) PER UNIT SC SCH (21:00)
[2019-04-20 22:00] VITALS: BP 141/71
[2019-04-21] MEDS: PERCOCET 5MG/325MG TAB PO PRN ×2 (04:33→10:35)
[2019-04-21 06:00] VITALS: BP 135/58
[2019-04-21 06:03] LABS: BASO % 0.4 % (0.0-1.0); EOS # 0.2 10^3/uL (0.0-0.5); EOS % 3.8 % (0.0-3.0); HEMATOCRIT 28.7 % (36.0-47.0); HEMOGLOBIN 9.4 g/dl (12.0-15.5); LYMPH # 0.9 10^3/uL (1.5-5.0); LYMPH % 17.8 % (24.0-44.0); MEAN CORPUSCULAR HEMOGLOBIN 30.9 pg (27.0-33.0); MEAN CORPUSCULAR HGB CONC 32.8 g/dl (32.0-36.5); MEAN CORPUSCULAR VOLUME 94.4 fl (80.0-96.0); MONO # 0.4 10^3/uL (0.0-0.8); MONO % 8.4 % (0.0-5.0); NEUTROPHILS # 3.3 10^3/uL (1.5-8.5); NEUTROPHILS % 69.2 % (36.0-66.0); PLATELET COUNT, AUTOMATED 211 10^3/uL (150-450); RED BLOOD COUNT 3.04 10^6/uL (4.00-5.40); WHITE BLOOD COUNT 4.8 10^3/uL (4.0-10.0)
[2019-04-21 06:15] LABS: BLOOD UREA NITROGEN 5 MG/DL (7-18); CALCIUM LEVEL 7.9 MG/DL (8.8-10.2); CARBON DIOXIDE LEVEL 27 MEQ/L (21-32); CHLORIDE LEVEL 109 MEQ/L (98-107); CREATININE FOR GFR 0.77 MG/DL (0.55-1.30); GLOMERULAR FILTRATION RATE > 60.0 (>45); GLUCOSE, FASTING 151 MG/DL (70-100); MAGNESIUM LEVEL 1.9 MG/DL (1.8-2.4); POTASSIUM SERUM 3.8 MEQ/L (3.5-5.1); SODIUM LEVEL 141 MEQ/L (136-145)
[2019-04-21] MEDS ORDERED: HumaLOG INSULIN (NovoLOG) PER UNIT SC SCH (07:30)
[2019-04-21 08:00] VITALS: BP 140/78
[2019-04-21] MEDS: NS 1,000 ML IV SCH (09:39)
--- NOTE | 2019-04-21 09:44 | IPNPDOC ---
Subjective General Date/Time Seen The patient was seen on 04/21/19 at 09:42. Subject Chief Complaint/History The patient is a 63-year-old female admitted with a reason for visit of Crohns Disease, Small Bowel Obstruction. Current Medications Current Medications Current Medications Medications (Trade) Dose Ordered Sig/Jorge Route PRN Reason Start Time Stop Time Status Last Admin Dose Admin Amlodipine Besylate (Norvasc) 2.5 mg DAILY PO 04/19/19 09:00 04/20/19 09:37 Dextrose (Dextrose 50%) 25 ml ASDIRECTED PRN IV SEE LABEL COMMENTS 04/18/19 21:00 Enalapril Maleate (Vasotec) 20 mg DAILY PO 04/19/19 09:00 04/20/19 09:37 Gabapentin (Neurontin) 300 mg TID PO 04/18/19 21:00 04/20/19 20:50 Glucagon (Glucagon) 1 mg ASDIRECTED PRN SC SEE LABEL COMMENTS 04/18/19 21:00 Glucose (Glucose) 16 GM ASDIRECTED PRN PO SEE LABEL COMMENTS 04/18/19 21:00 Heparin Sodium (Porcine) (Heparin) 5,000 units Q12H SC 04/18/19 21:00 04/20/19 20:49 Home Med (Med Rec Complete!) ASDIRECTED XX 04/18/19 18:30 04/18/19 18:32 DC Insulin Human Lispro (HumaLOG INSULIN) SEE PROTOCOL TABLE Q6H MN 04/19/19 00:00 04/20/19 17:46 DC Insulin Human Lispro (HumaLOG INSULIN) See Protocol Table AC MN 04/21/19 07:30 04/21/19 08:34 Insulin Human Lispro (HumaLOG INSULIN) See Protocol Table QHS MN 04/18/19 21:00 04/18/19 22:57 DC Insulin Human Lispro (HumaLOG INSULIN) See Protocol Table QHS MN 04/20/19 21:00 Magnesium Chloride (Slow-Mag) 64 mg DAILY PO 04/20/19 09:00 04/20/19 09:38 Methylprednisolone (SOLU medrol) 40 mg Q12H IV 04/18/19 21:00 04/18/19 21:03 DC Morphine Sulfate (Morphine Sulfate Inj) 2 mg Q2HP PRN IV BREAKTHROUGH PAIN 04/18/19 20:45 04/20/19 10:35 Morphine Sulfate (Morphine Sulfate Inj) 2 mg Q30M PRN IV MODERATE PAIN (PS 5-7) 04/18/19 17:00 04/18/19 19:16 DC 04/18/19 19:16 Ondansetron HCl (ZOFRAN INJection) 4 mg Q6HP PRN IV NAUSEA OR VOMITING 04/18/19 21:00 04/20/19 23:13 Oxycodone/ Acetaminophen (Percocet 5mg/ 325mg Tablet) 1 tab Q6HP PRN PO MILD/MODERATE PAIN (PS 1-7) 04/20/19 17:00 04/21/19 04:33 Pantoprazole Sodium (Protonix) 40 mg Q24H IV 04/19/19 08:00 04/20/19 09:38 Piperacillin Sod/ Tazobactam Sod 4.5 gm/Dextrose 50 ml @ 50 mls/hr Q8H IV 04/19/19 09:30 04/19/19 09:51 DC Piperacillin Sod/ Tazobactam Sod 4.5 gm/Dextrose 50 ml @ 50 mls/hr Q8H IV 04/19/19 13:00 04/20/19 15:18 DC 04/20/19 12:41 Sodium Chloride 1,000 ml @ 100 mls/hr Q10H IV 04/18/19 21:00 04/21/19 09:39 Vancomycin HCl 1000 mg/IV Miscellaneous Supplies 1 each/ Dextrose 270 ml @ 270 mls/hr Q12H IV 04/19/19 11:00 04/20/19 15:18 DC 04/20/19 10:40 Allergies Coded Allergies: ciprofloxacin (Verified Allergy, Intermediate, rash, 01/27/19) indomethacin (Verified Allergy, Intermediate, rash, 01/27/19) rofecoxib (Verified Allergy, Unknown, 01/27/19) tomato (Verified Allergy, Unknown, 01/27/19) diazepam (Verified Adverse Reaction, Mild, agitation, 01/27/19) Objective Physical Examination Examination GENERAL APPEARANCE:[Patient seen, laying in bed, awake, alert, and oriented. Co mfortable, in no acute distress]. SKIN: [Warm and moist]. HEENT: [Normocephalic, atraumatic. [place] palpebral conjunctiva, anicteric sclerae. Lips and mucosa appear moist]. NECK: [Supple, no thyromegaly. No obvious jugular venous distention]. LUNGS: [Clear to auscultation bilaterally. No wheezing appreciated]. HEART: [No chest wall abnormalities. Regular rate and rhythm with no murmurs appreciated]. ABDOMEN: Abdomen is , soft, . [No hepatosplenomegaly. No umbilical or groin herniations, nondistended. No noticeable rebound or guarding. No grimacing with palpation. No rebound tenderness. No masses appreciated]. EXTREMITIES: [Extremities have no deformities. No edema identified]. Vital Signs Vital Signs Date Time Temp Pulse Resp B/P (MAP) Pulse Ox O2 Delivery O2 Flow Rate FiO2 04/21/19 08:00 97.8 80 18 140/78 (98) 98 04/18/19 15:31 Room Air I&Os I&O- Last 24 Hours up to 6 AM 04/21/19 06:00 Intake Total 1520 ml Output Total 2200 ml Balance -680 ml Laboratory Data Labs 24H Laboratory Tests 2 04/20/19 09:50: Lactic Acid Level 1.1, Vancomycin Level Trough 13.3 04/20/19 11:36: Bedside Glucose (Misc Panel) 213H 04/20/19 17:04: Bedside Glucose (Misc Panel) 99 04/20/19 20:41: Bedside Glucose (Misc Panel) 130H 04/21/19 05:24: Immature Granulocyte % (Auto) 0.4, White Blood Count 4.8, Red Blood Count 3.04L, Hemoglobin 9.4L, Hematocrit 28.7L, Mean Corpuscular Volume 94.4, Mean Corpuscular Hemoglobin 30.9, Mean Corpuscular Hemoglobin Concent 32.8, Red Cell Distribution Width 14.3, Platelet Count 211, Neutrophils (%) (Auto) 69.2H, Lymphocytes (%) (Auto) 17.8L, Monocytes (%) (Auto) 8.4H, Eosinophils (%) (Auto) 3.8H, Basophils (%) (Auto) 0.4, Neutrophils # (Auto) 3.3, Lymphocytes # (Auto) 0.9L, Monocytes # (Auto) 0.4, Eosinophils # (Auto) 0.2, Basophils # (Auto) 0.0, Nucleated Red Blood Cells % (auto) 0.0, Anion Gap 5L, Glomerular Filtration Rate > 60.0, Blood Urea Nitrogen 5L, Creatinine 0.77, Sodium Level 141, Potassium Level 3.8, Chloride Level 109H, Carbon Dioxide Level 27, Calcium Level 7.9L, Magnesium Level 1.9 CBC/BMP Laboratory Tests 04/21/19 05:24 Red Blood Count 3.04 L, Mean Corpuscular Volume 94.4, Mean Corpuscular Hemoglobin 30.9, Mean Corpuscular Hemoglobin Concent 32.8, Red Cell Distribution Width 14.3, Neutrophils (%) (Auto) 69.2 H, Lymphocytes (%) (Auto) 17.8 L, Monocytes (%) (Auto) 8.4 H, Eosinophils (%) (Auto) 3.8 H, Basophils (%) (Auto) 0.4, Neutrophils # (Auto) 3.3, Lymphocytes # (Auto) 0.9 L, Monocytes # (Auto) 0.4, Eosinophils # (Auto) 0.2, Basophils # (Auto) 0.0, Calcium Level 7.9 L Microbiology Microbiology 04/19/19 Blood Culture - Preliminary, Resulted No growth after 24 hours . All specim... 04/18/19 Blood Culture - Preliminary, Resulted 04/18/19 Blood Culture - Preliminary, Resulted Impression Crohn's Disease small bowel obstruction vs ileus vs self limited gastroenteritis resolved Reviewed with her the CT enterography done yesterday. No fixed strictures to explain recurrent obstructions. She had a negative diagnostic laparoscopy by Dr. Pringle in 2017. No surgical intervention required. Follow up with Dr. Martinez for her Crohn's Disease. Plan / VTE VTE Prophylaxis Ordered?: Yes RAEGAN GOMEZ MD Apr 21, 2019 09:44
[2019-04-21] MEDS: HEPARIN SOD (PORCINE) 5000 UNITS/ML VIAL SC SCH (09:48)
[2019-04-21] MEDS: PANTOPRAZOLE 40MG INJ (PROTONIX) (C9113) IV SCH (09:48)
[2019-04-21] MEDS: GABAPENTIN 300 MG CAP PO SCH (09:49)
[2019-04-21 09:50] VITALS: BP 140/78
[2019-04-21] MEDS: MAGNESIUM CHLORIDE 64 MG TABCR (SLO MAG) PO SCH (09:50)
[2019-04-21] MEDS: ENALAPRIL MALEATE 10 MG TAB PO SCH (09:50)
[2019-04-21] MEDS ORDERED: PERCOCET PO (10:18)
[2019-04-21] MEDS ORDERED: PRED20TA PO (10:21)
--- NOTE | 2019-04-21 13:29 | DS.PDOC ---
Discharge Summary General Date of Admission Apr 18, 2019 at 20:47 Date of Discharge 04/21/19 Discharge Summary PROCEDURES PERFORMED DURING STAY: None. ADMITTING DIAGNOSES: 1. Exacerbation of Crohn's disease. DISCHARGE DIAGNOSES: 1. Exacerbation of Crohn's disease. COMPLICATIONS/CHIEF COMPLAINT: Crohns Disease, Small Bowel Obstruction. HISTORY OF PRESENT ILLNESS: 63 year of female presented to the ED with sudden onset severe abdominal pain from 2 pm today with nausea and vomiting. The pain is crampy in nature 10/10 in tensity when the cramps come located in the upper abdomen. Extending across from the right to left like a band. Associated with 6 to 8 times of vomiting. No diarrhea. In the ED she was found to have Partial small bowel obstruction. Seen by surgery. Patient refused NG tube after 2 failed attempts.. HOSPITAL COURSE: This is a 63 years old female with past medical history of Crohn disease, hypertension presented to hospital with sudden onset of abdominal pain, distention and vomiting. She follows up with Dr. Martinez. She currently receives therapy with Stelara which she gets every 8 weeks. She has failed 3 other regimens including Imuran, Remicade and Entyvio. In emergency room CT abdomen showed Partial small bowel obstruction, right mid abdomen, likely secondary to adhesions with no identifiable mass or evidence of volvulus. Lactic acid on admission was elevated to 6.4 trended down to 2.9. Blood culture came back positive for gram positive cocci. Repeated blood culture was negative. IV steroids for possible Crohn flare up initiated. Surgical team consulted pt and recommended nothing by mouth. GI team recommended continue steroids and see patients in the outpatient. CT enterogram was done on 04/20/19, and it was negative for obstruction. Soft diet started. Anti cipated discharge on 04/21/19. Partial SBO. Initially his resolved now. Once patient was kept on nothing by mouth Surgical team follows Pain management Patient doesn't want NG tube CT enterogram negative for obstruction Patient tolerating oral feeding very well Can be discharged home on a regular diet Elevated lactic acid Trended down Most likely attributed to intestinal ischemia due to small bowel obstruction Initially Blood culture positive for gram-positive cocci. Repeated blood culture was negative. Most likely first blood culture positive due to contamination dc antibiotics Hypertensive urgency Continue home cardioprotective medication Hypomagnesemia replaced Crohn's disease Unusual presentation for Crohn flare up. Patient doesn't have diarrhea with blood Patient can be discharged home on by mouth prednisone and follow with her engrosser as outpatient in one week Pain management with Percocet as per hospital dosage Diabetes non insulin dependent with neuropathy Glucose levels under control Diabetes diet Insulin sliding scale Hyperlipidemia Statin GERD PPI Iron def anemia On iron supplement. DISCHARGE MEDICATIONS: Please see below. ALLERGIES: Please see below. PHYSICAL EXAMINATION ON DISCHARGE: VITAL SIGNS: Please see below. GENERAL: Within normal limits HEENT: PERRLA NECK: Supple CARDIOVASCULAR EXAMINATION: S1, S2, regular RESPIRATORY EXAMINATION: Clear to A&P ABDOMINAL EXAMINATION: , Soft, nontender, bowel sound present EXTREMITIES: No clubbing, cyanosis, edema SKIN: Within normal limits NEUROLOGICAL EXAMINATION: . No focal motor sensory deficit PSYCHIATRIC EXAMINATION: Within normal limits LABORATORY DATA: Please see below. IMAGING: CT abdomen and pelvis: 1. Partial small bowel obstruction, right mid abdomen, likely secondary to adhesions with no identifiable mass or evidence of volvulus. 2. Colonic diverticular changes without active inflammation. 3. Hepatomegaly and hepatic steatosis. 4. Nonobstructive bilateral renal calculi PROGNOSIS: Good ACTIVITY: As tolerated. DIET: As tolerated DISCHARGE PLAN: As per discharge instructions DISPOSITION: 01 Home, Self-Care. DISCHARGE INSTRUCTIONS: 1. As per discharge instructions. ITEMS TO FOLLOWUP ON ON OUTPATIENT: 1. Follow with gastroenterology in one week. DISCHARGE CONDITION: Stable. TIME SPENT ON DISCHARGE: 40 minutes. Vital Signs/I&Os Vital Signs Date Time Temp Pulse Resp B/P (MAP) Pulse Ox O2 Delivery O2 Flow Rate FiO2 04/21/19 11:05 19 04/21/19 09:50 140/78 04/21/19 09:49 80 04/21/19 08:00 97.8 98 04/18/19 15:31 Room Air I&O- Last 24 Hours up to 6 AM 04/21/19 06:00 Intake Total 1520 ml Output Total 2200 ml Balance -680 ml Laboratory Data Labs 24H Laboratory Tests 2 04/20/19 17:04: Bedside Glucose (Misc Panel) 99 04/20/19 20:41: Bedside Glucose (Misc Panel) 130H 04/21/19 05:24: Immature Granulocyte % (Auto) 0.4, White Blood Count 4.8, Red Blood Count 3.04L, Hemoglobin 9.4L, Hematocrit 28.7L, Mean Corpuscular Volume 94.4, Mean Corpuscular Hemoglobin 30.9, Mean Corpuscular Hemoglobin Concent 32.8, Red Cell Distribution Width 14.3, Platelet Count 211, Neutrophils (%) (Auto) 69.2H, Lymphocytes (%) (Auto) 17.8L, Monocytes (%) (Auto) 8.4H, Eosinophils (%) (Auto) 3.8H, Basophils (%) (Auto) 0.4, Neutrophils # (Auto) 3.3, Lymphocytes # (Auto) 0.9L, Monocytes # (Auto) 0.4, Eosinophils # (Auto) 0.2, Basophils # (Auto) 0.0, Nucleated Red Blood Cells % (auto) 0.0, Anion Gap 5L, Glomerular Filtration Rate > 60.0, Blood Urea Nitrogen 5L, Creatinine 0.77, Sodium Level 141, Potassium Level 3.8, Chloride Level 109H, Carbon Dioxide Level 27, Calcium Level 7.9L, Magnesium Level 1.9 CBC/BMP Laboratory Tests 04/21/19 05:24 Red Blood Count 3.04 L, Mean Corpuscular Volume 94.4, Mean Corpuscular Hemoglob in 30.9, Mean Corpuscular Hemoglobin Concent 32.8, Red Cell Distribution Width 14.3, Neutrophils (%) (Auto) 69.2 H, Lymphocytes (%) (Auto) 17.8 L, Monocytes (%) (Auto) 8.4 H, Eosinophils (%) (Auto) 3.8 H, Basophils (%) (Auto) 0.4, Neutrophils # (Auto) 3.3, Lymphocytes # (Auto) 0.9 L, Monocytes # (Auto) 0.4, Eosinophils # (Auto) 0.2, Basophils # (Auto) 0.0, Calcium Level 7.9 L FSBS Laboratory Tests Test 04/20/19 17:04 04/20/19 20:41 Range/Units Bedside Glucose (Misc Panel) 99 130 80-115 MG/DL Microbiology Microbiology 04/19/19 Blood Culture - Preliminary, Resulted No Growth after 48 hours. All Specime... 04/18/19 Blood Culture - Preliminary, Resulted 04/18/19 Blood Culture - Preliminary, Resulted Discharge Medications Scheduled Amlodipine Besylate (Amlodipine Besylate) 2.5 Mg Tab, 2.5 MG PO DAILY, (Reported) Atorvastatin Calcium (Atorvastatin Calcium) 10 Mg Tab, 10 MG PO QHS, (Reported) Black Cohosh Root (Black Cohosh) 200 Mg Capsule, 200 MG PO BID, (Reported) Calcium Carbonate/Vitamin D3 (Calcium 600-Vit D3 400 Tablet) 1 Each Tablet, 1 TAB PO BID, (Reported) Cholecalciferol (Vitamin D3) (Vitamin D3) 1,000 Unit Tab, 1,000 UNIT PO DAILY, (Reported) Cyanocobalamin (Vitamin B-12) (Vitamin B-12) 1,000 Mcg Tab, 1,000 MCG PO DAILY, (Reported) Enalapril Maleate (Enalapril Maleate) 20 Mg Tab, 20 MG PO DAILY, (Reported) Ferrous Sulfate (Ferrous Sulfate) 325 Mg Tab, 325 MG PO BID, (Reported) Gabapentin (Gabapentin) 300 Mg Cap, 300 MG PO TID, (Reported) Hydrochlorothiazide (Hydrochlorothiazide) 25 Mg Tab, 25 MG PO DAILY, (Reported) Magnesium Oxide (Magnesium Oxide) 250 Mg Tab, 250 MG PO DAILY, (Reported) Meloxicam (Meloxicam) 15 Mg Tab, 15 MG PO DAILY, (Reported) Metformin HCl (Metformin HCl) 1,000 Mg Tab, 1,000 MG PO BIDWM, (Reported) Pantoprazole Sodium (Pantoprazole Sodium) 40 Mg Tab, 40 MG PO DAILY, (Reported) Prednisone (Prednisone) 20 Mg Tablet, 20 MG PO DAILY Ustekinumab (Stelara) 90 Mg/1 Ml Syringe, 90 MG SC ASDIRECTED, (Reported) EVERY 8 WEEKS Scheduled PRN Oxycodone/Acetaminophen (Oxycodone-Acetaminophen 5-325) 1 Each Tablet, 1 TAB PO Q6HP PRN for MILD/MODERATE PAIN (PS 1-7) Allergies Coded Allergies: ciprofloxacin (Verified Allergy, Intermediate, rash, 01/27/19) indomethacin (Verified Allergy, Intermediate, rash, 01/27/19) rofecoxib (Verified Allergy, Unknown, 01/27/19) tomato (Verified Allergy, Unknown, 01/27/19) diazepam (Verified Adverse Reaction, Mild, agitation, 01/27/19) DORIS HUTCHINSON MD Apr 21, 2019 13:29
== END 2019-04-21 11:35 | disposition home or self-care (01) | DRG 386 ==
LOC: M ED 15:31 → M ED INP 20:47 → M MSPAV 22:20
PROVIDERS: ADMIT Internal Medicine Nephrology; ATTEND Internal Medicine
DX: K50.912 Crohn's disease, unspecified, with intestinal obstruction (principal); K56.609 Unspecified intestinal obstruction, unspecified as to partial versus complete obstruction; E87.2 Acidosis; I10 Essential (primary) hypertension; I16.0 Hypertensive urgency; E83.42 Hypomagnesemia; E11.40 Type 2 diabetes mellitus with diabetic neuropathy, unspecified; E78.5 Hyperlipidemia, unspecified; K21.9 Gastro-esophageal reflux disease without esophagitis; D50.9 Iron deficiency anemia, unspecified; N20.0 Calculus of kidney; Z79.899 Other long term (current) drug therapy; Z88.8 Allergy status to other drugs, medicaments and biological substances; Z91.018 Allergy to other foods; M19.90 Unspecified osteoarthritis, unspecified site; E66.9 Obesity, unspecified; K57.30 Diverticulosis of large intestine without perforation or abscess without bleeding

== ENCOUNTER → 2019-05-03 | Outpatient (CLI) | payer MEDICARE ==
[~2019-05-03] MED LIST changes: +CALC600T18 PO; +ONDA-83 PO; +PRED50TA PO; +RA B200C PO; +STEL90IN SC
[2019-05-03 09:30] LABS: ALBUMIN 3.8 GM/DL (3.2-5.2); ALT/SGPT 33 U/L (12-78); BILIRUBIN,TOTAL 0.5 MG/DL (0.2-1.0); BLOOD UREA NITROGEN 12 MG/DL (7-18); CALCIUM LEVEL 9.3 MG/DL (8.8-10.2); CARBON DIOXIDE LEVEL 26 MEQ/L (21-32); CHLORIDE LEVEL 103 MEQ/L (98-107); CHOLESTEROL LEVEL 132 MG/DL (<200); CREATININE FOR GFR 0.78 MG/DL (0.55-1.30); GLOMERULAR FILTRATION RATE > 60.0 (>45); GLUCOSE, FASTING 140 MG/DL (70-100); HDL CHOLESTEROL 33 MG/DL (>40); LDL CHOLESTEROL 59 MG/DL (<100); NON-HDL-C 99 MG/DL; POTASSIUM SERUM 4.4 MEQ/L (3.5-5.1); SODIUM LEVEL 140 MEQ/L (136-145); TOTAL PROTEIN 6.4 GM/DL (6.4-8.2); TRIGLYCERIDES LEVEL 200 MG/DL (<150)
[2019-05-03 09:38] LABS: CREATININE, URINE 67.6 MG/DL; MAU/CREAT RATIO 170.1 MCG/MG (0.0-30.0)
== END ==
LOC: M LAB 07:50
PROVIDERS: ATTEND Family Medicine
DX: E11.8 Type 2 diabetes mellitus with unspecified complications (principal); I10 Essential (primary) hypertension; E78.5 Hyperlipidemia, unspecified

== ENCOUNTER → 2019-05-19 | Outpatient (REF) | payer MEDICARE ==
[~2019-05-19] MED LIST changes: -ONDA-83 PO; -PRED50TA PO
== END ==
LOC: M LAB REF 10:22
PROVIDERS: ATTEND Internal Medicine Gastroenterology
DX: K50.012 Crohn's disease of small intestine with intestinal obstruction (principal)

== ENCOUNTER → 2019-06-21 | Outpatient (REF) | payer MEDICARE | LOC: M LAB REF 08:53 | PROVIDERS: ATTEND Internal Medicine Gastroenterology | DX: K50.012 Crohn's disease of small intestine with intestinal obstruction (principal) ==

== ENCOUNTER → 2019-07-28 | Outpatient (CLI) | payer MEDICARE ==
[2019-07-28 10:59] LABS: HEMOGLOBIN A1c 6.6 %
[2019-07-28 11:05] LABS: BLOOD UREA NITROGEN 14 MG/DL (7-18); CARBON DIOXIDE LEVEL 30 MEQ/L (21-32); CHLORIDE LEVEL 103 MEQ/L (98-107); CREATININE FOR GFR 0.75 MG/DL (0.55-1.30); GLOMERULAR FILTRATION RATE > 60.0 (>45); GLUCOSE, FASTING 127 MG/DL (70-100); POTASSIUM SERUM 4.6 MEQ/L (3.5-5.1); SODIUM LEVEL 139 MEQ/L (136-145)
[2019-07-28 11:15] LABS: CREATININE, URINE 79.1 MG/DL; MAU/CREAT RATIO 40.4 MCG/MG (0.0-30.0)
== END ==
LOC: M LAB 09:44
PROVIDERS: ATTEND Family Medicine
DX: E11.8 Type 2 diabetes mellitus with unspecified complications (principal); I10 Essential (primary) hypertension; E78.5 Hyperlipidemia, unspecified

== ENCOUNTER 2019-08-01 17:15 | Inpatient (IN) | payer MEDICARE ==
[~2019-08-01] VITALS: Ht 144.8 cm; Wt 79.0 kg
[2019-08-01] MEDS ORDERED: ONDANSETRON 4MG/2ML VIAL (J2405) IV ONE ×2 (17:45→22:00)
[2019-08-01] MEDS ORDERED: MORPHINE 4 MG/ML 1ML VIAL/SYRINGE (J2270) IV ONE ×3 (17:45→22:45)
[2019-08-01] MEDS ORDERED: NS 1,000 ML IV ONE (17:45)
[2019-08-01 18:09] LABS: BASO % 0.6 % (0.0-1.0); EOS # 0.1 10^3/uL (0.0-0.5); EOS % 1.6 % (0.0-3.0); HEMATOCRIT 34.2 % (36.0-47.0); HEMOGLOBIN 11.1 g/dl (12.0-15.5); LYMPH # 0.9 10^3/uL (1.5-5.0); LYMPH % 13.1 % (24.0-44.0); MEAN CORPUSCULAR HEMOGLOBIN 30.7 pg (27.0-33.0); MEAN CORPUSCULAR HGB CONC 32.5 g/dl (32.0-36.5); MEAN CORPUSCULAR VOLUME 94.7 fl (80.0-96.0); MONO # 0.4 10^3/uL (0.0-0.8); NEUTROPHILS # 5.4 10^3/uL (1.5-8.5); NEUTROPHILS % 78.3 % (36.0-66.0); PLATELET COUNT, AUTOMATED 221 10^3/uL (150-450); RED BLOOD COUNT 3.61 10^6/uL (4.00-5.40)
[2019-08-01 18:31] LABS: ALBUMIN 3.7 GM/DL (3.2-5.2); BILIRUBIN,DIRECT 0.1 MG/DL (0.0-0.2); BILIRUBIN,TOTAL 0.5 MG/DL (0.2-1.0); TOTAL PROTEIN 6.9 GM/DL (6.4-8.2)
[2019-08-01] MEDS: GASTROGRAFIN SOLUTION 30ML PO SCH ×2 (20:11→20:55)
[2019-08-01] MEDS ORDERED: ISOVUE-370 76% 100ML VIAL (Q9967) As Ordered ONE (21:35)
--- NOTE | 2019-08-01 22:34 | REPVR ---
PROCEDURE INFORMATION: Exam: CT Abdomen And Pelvis With Contrast Exam date and time: 08/01/2019 9:38 PM Age: 63 years old Clinical history: Abdominal pain; Other: Central; Additional info: Central abd pain and bloating TECHNIQUE: Imaging protocol: Computed tomography of the abdomen and pelvis with intravenous contrast. Radiation optimization: All CT scans at this facility use at least one of these dose optimization techniques: automated exposure control; mA and/or kV adjustment per patient size (includes targeted exams where dose is matched to clinical indication); or iterative reconstruction. Contrast material: ISOVUE 370; Contrast volume: 100 ml; Contrast route: IV; Other contrast: Route: Oral, Material: gastrografin; COMPARISON: CT ABD/PEL W/IV CONTRAST ONLY 04/18/2019 5:02 PM FINDINGS: Lungs: No suspicious mass or airspace process in the visualized lung bases. Liver: Liver is enlarged and decreased in density suggesting hepatic steatosis. Gallbladder and bile ducts: Gallbladder is present and shows no evidence of gallstone. Pancreas: Pancreas appears normal. No focal mass or peripancreatic inflammation. Spleen: Spleen appears homogeneous without focal mass. Adrenals: Adrenal glands are normal in appearance. Kidneys and ureters: Kidneys demonstrate nonobstructive calculi and a stable left renal midpole cyst. Stomach and bowel: Mild dilatation of midabdominal small bowel loops measuring 3.5 cm with inspissated enteric contents and mild mesenteric and perihepatic fluid/edema. Transition point between dilated and nondilated bowel may be in the right midabdomen laterally on axial image [id number] coronal, suggesting adhesions. No mass or internal hernia. Diverticular changes are present within the colon without inflammation. Appendix: Normal caliber appendix is identified, with no adjacent inflammation. Intraperitoneal space: No pneumoperitoneum. No abnormal pelvic mass. Vasculature: Main portal and splenic veins enhance normally. No aortic aneurysm. Lymph nodes: No enlarged lymph nodes. Bladder: Urinary bladder appears normal. Bones/joints: Bony structures show no acute fracture or destructive process. Soft tissues: See Stomach And Bowel Finding. IMPRESSION: 1. Focal right abdominal partial small bowel obstruction with loops measuring 3.5 cm with inspissated enteric contents in the affected segments and mild mesenteric edema. This could be due to inflammatory process or adhesions, if the patient has had prior surgery. No mass, ischemic change or internal hernia. 2. Bilateral nonobstructive renal calculi. 3. Colonic diverticulosis without active inflammation COMMENT: Consistent with the [employer]'s Incidental Findings Committee Report (J Am Dain Radiol 2010): Unless the patient's specific circumstances suggest otherwise, any liver lesion 0.5 cm or less, any cystic kidney lesion less than 1.0 cm, and/or any adrenal lesion 1.0 cm or less not otherwise characterized in this report as possessing suspicious or indeterminate imaging features is/are highly likely to be benign and do not require follow-up imaging or biopsy. Electronically signed by: Lars Ugarte On 08/01/2019 22:34:23 PM
[2019-08-01] MEDS ORDERED: METOCLOPRAMIDE INJ 10MG/2ML VIAL (J2765) IV ONE (22:45)
[2019-08-01] MEDS ORDERED: NS 1,000 ML IV SCH (22:45)
--- NOTE | 2019-08-01 23:41 | HPEPDOC ---
[facility] Medical History & Physical Date of Admission Aug 01, 2019 Date of Service: Aug 01, 2019 Primary Care Physician: Halley Garcia MD Attending Physician: EMMY HALE MD History and Physical TIME OF SERVICE: 11:55 PM CHIEF COMPLAINT: "Crohn's flare." HISTORY OF PRESENT ILLNESS: This is a 63-year-old female who presents with the chief complaint that she's having a "Crohn's flare". She began vomiting around 5 PM. Associated symptoms included diarrhea, relapsing and remitting mid 5/10 in severity nonradiating epigastric pain. She's not or what triggered this episode of Crohn's, but reports eating cranberry bread prior to the episode. She has been taking ustekinumab for for her Crohn's the last year; according to her daughter this is a third medication that she's been on for maintenance. The patient denies having any associated rash or joint pain. Per discussion with FLORENTINO Elder CT of the abdomen findings consistent with a partial small bowel obstruction. She discussed these findings with Dr. June who thought that the patient might have ileus rather than SBO; she also discuss the findings with Dr. Martinez who recommended steroids. REVIEW OF SYSTEMS: 12 point review of systems negative except as listed in HPI PAST MEDICAL/ SURGICAL HISTORY: Crohn's disease. History of ileus / History of ischemic bowel Diverticulitis. Chronic hypertension. Jro-reizjfr-ybtdiowcm diabetes. Status post I&D of right breast mass. Obesity She denies having a personal history of CVA, [place], thyroid disorder, COPD or asthma SOCIAL HISTORY: She does not smoke FAMILY HISTORY: Coronary artery disease Metastatic cancer. Diabetes Endometriosis Scoliosis She denies having a family history of Crohn's or ulcerative colitis ALLERGIES: Please see below. HOME MEDICATIONS: Please see below. PHYSICAL EXAMINATION: VITAL SIGNS: Please see below. GEN: Obese/ well developed/ NAD INTEGUMENT: not flushed/ not jaundice HEENT: normocephalic / atraumatic /mucus membranes moist and pink / sclera anicteric CVS: RRR/NMRG LUNGS: there is equal air entry bilaterally / lungs are clear to auscultation bilaterally on room air ABDOMEN: there are no masses or lesions / bowel sounds are hypoactive/ the abdomen is soft & tender with palpation MSK/EXTREMITIES: range of motion intact in all 4 extremities NEURO: CN 2-12 are grossly intact / speech is not dysarthric PSYCH: alert and oriented to person place and time/ able to understand and follow all commands LABORATORY DATA: See below. IMAGING: CT of the abdomen " IMPRESSION: 1. Focal right abdominal partial small bowel obstruction with loops measuring 3.5 cm with inspissated enteric contents in the affected segments and mild mesenteric edema. This could be due to inflammatory process or adhesions, if the patient has had prior surgery. No mass, ischemic change or internal hernia. 2. Bilateral nonobstructive renal calculi. 3. Colonic diverticulosis without active inflammation " MICROBIOLOGY: Please see below. ASSESSMENT: Ms. Cheng is a 63-year-old with a past medical history of Crohn's disease, diverticulitis, chronic hypertension, and srd-yrvpoel-rsduwefsv diabetes will be admitted for management of acute Crohn's. PLAN: 1. Acute Crohn's with ileus vs partial SBO She does not SIRS criteria Lactic acid is elevated Report from CT of the abdomen reviewed Plan: admit to medical floor/nothing by mouth/IV fluids/follow-up with Dr. June in the morning / Solu-Medrol for Crohn's flare /follow up KUB in the morning morning / the day time team may consider GI consult if she doesn't improve after a few days 2. Anion gap acidosis Secondary to lactic acidosis. The calculated anion gap is 16 Plan: will start metronidazole because of the lactic acidosis / follow-up repeat lactic acid 3. Uncontrolled hypertension Acute elevation may be due to pain. Plan: Resume home meds 4. Normocytic normochromic anemia Plan: Follow-up iron panel 5. Bpc-vuarkho-sflwbrlcr diabetes. Her A1c was 6.6 a few days ago The acute elevation in the glucose may be due to acute illness Plan: f/u accuchecks / hypoglycemia protocol / sliding scale insulin / metformin while acutely ill 6. Obesity BMI 37.7 This complicates care Since her BMI >35 and she has DM . She is candidate for bariatric surgery Plan: She can can f/u w her PCP for STOP BANG questionnaire, security flex officer consult & referral for Bariatric Surgeon / recommend cardiovascular exercise for 40 min 4-5 days a week DVT PROPHYLAXIS: Lovenox DISPOSITION: Likely home after more than 2 midnight's stay Vital Signs Vital Signs Date Time Temp Pulse Resp B/P (MAP) Pulse Ox O2 Delivery O2 Flow Rate FiO2 08/01/19 23:19 20 08/01/19 22:10 98.2 89 175/77 (109) 99 Room Air Laboratory Data Labs 24H Laboratory Tests 2 08/01/19 17:54: POC Glucose (Misc Panel) 260H, POC Sodium (Misc Panel) 138, POC Potassium (Misc Panel) 3.7, POC Chloride (Misc Panel) 100, POC Total CO2 (Misc Panel) 22.0L, POC Blood Urea Nitrogen (Misc Panel 15, POC Ionized Calcium (Misc Panel) 4.5, POC Creatinine (Misc Panel) 0.7, POC Hematocrit (Misc Panel) 32.0L 08/01/19 17:55: Immature Granulocyte % (Auto) 0.4, Neutrophils (%) (Auto) 78.3H, Lymphocytes (%) (Auto) 13.1L, Monocytes (%) (Auto) 6.0H, Eosinophils (%) (Auto) 1.6, Basophils (%) (Auto) 0.6, Neutrophils # (Auto) 5.4, Lymphocytes # (Auto) 0.9L, Monocytes # (Auto) 0.4, Eosinophils # (Auto) 0.1, Basophils # (Auto) 0.0, Nucleated Red Blood Cells % (auto) 0.0, Lactic Acid Level 5.4*H, Total Bilirubin 0.5, Direct Bilirubin 0.1, Aspartate Amino Transf (AST/SGOT) 48H, Alanine Aminotransferase (ALT/SGPT) 32, Alkaline Phosphatase 93, Total Protein 6.9, Albumin 3.7, Albumin/Globulin Ratio 1.16, Lipase 156 08/01/19 19:09: Urine Color STRAW, Urine Appearance CLEAR, Urine pH 5.0, Urine Specific Cedar 1.012, Urine Protein 1+H, Urine Glucose (UA) 3+H, Urine Ketones NEGATIVE, Urine Blood NEGATIVE, Urine Nitrite NEGATIVE, Urine Bilirubin NEGATIVE, Urine Urobilinogen 0.2, Urine Leukocyte Esterase NEGATIVE, Urine WBC (Auto) 0, Urine RBC (Auto) 1, Urine Hyaline Casts (Auto) 0, Urine Bacteria (Auto) NEGATIVE, Urine Squamous Epithelial Cells 0, Urine Sperm (Auto) CBC/BMP Laboratory Tests 08/01/19 17:55 Home Medications Scheduled Amlodipine Besylate (Amlodipine Besylate) 2.5 Mg Tab, 2.5 MG PO DAILY Atorvastatin Calcium (Atorvastatin Calcium) 10 Mg Tab, 10 MG PO QHS Black Cohosh Root (Black Cohosh) 200 Mg Capsule, 200 MG PO BID Calcium Carbonate/Vitamin D3 (Calcium 600-Vit D3 400 Tablet) 1 Each Tablet, 1 TAB PO BID Cholecalciferol (Vitamin D3) (Vitamin D3) 1,000 Unit Tab, 1,000 UNIT PO DAILY Cyanocobalamin (Vitamin B-12) (Vitamin B-12) 1,000 Mcg Tab, 1,000 MCG PO DAILY Enalapril Maleate (Enalapril Maleate) 20 Mg Tab, 20 MG PO DAILY Ferrous Sulfate (Ferrous Sulfate) 325 Mg Tab, 325 MG PO BID Gabapentin (Gabapentin) 300 Mg Cap, 300 MG PO TID Hydrochlorothiazide (Hydrochlorothiazide) 25 Mg Tab, 25 MG PO DAILY Magnesium Oxide (Magnesium Oxide) 250 Mg Tab, 250 MG PO DAILY Meloxicam (Meloxicam) 15 Mg Tab, 15 MG PO DAILY Metformin HCl (Metformin HCl) 1,000 Mg Tab, 1,000 MG PO BIDWM Pantoprazole Sodium (Pantoprazole Sodium) 40 Mg Tab, 40 MG PO DAILY Ustekinumab (Stelara) 90 Mg/1 Ml Syringe, 90 MG SC ASDIRECTED EVERY 8 WEEKS, NEXT INFUSION 08/18/19 Scheduled PRN Ondansetron HCl (Ondansetron HCl) 4 Mg Tablet, 4 MG PO Q6H PRN for NAUSEA OR VOMITING Allergies Coded Allergies: ciprofloxacin (Verified Allergy, Intermediate, rash, 01/27/19) indomethacin (Verified Allergy, Intermediate, rash, 01/27/19) infliximab (Verified Allergy, Unknown, 08/01/19) rofecoxib (Verified Allergy, Unknown, 01/27/19) tomato (Verified Allergy, Unknown, 01/27/19) diazepam (Verified Adverse Reaction, Mild, agitation, 01/27/19) A-FIB/CHADSVASC A-FIB History Current/History of A-Fib/PAF?: No Current PO Anticoag Therapy: No EMMY HALE MD Aug 01, 2019 23:41
[2019-08-02] MEDS ORDERED: D5W/0.9% SODIUM CHLORIDE 1,000 ML IV SCH (00:35)
[2019-08-02] MEDS ORDERED: GLUCAGON FOR INJ 1 MG VIAL (J1610) SC PRN (00:45)
[2019-08-02] MEDS ORDERED: GLUCOSE 4 GM CHEW TABLET PO PRN (00:45)
[2019-08-02] MEDS ORDERED: DEXTROSE 50% 50 ML SYRINGE IV PRN (00:45)
[2019-08-02] MEDS ORDERED: ONDA4TAB5 PO (01:22)
[2019-08-02] MEDS ORDERED: MAALOX 30 ML SUSP *UDC PO PRN (02:00)
[2019-08-02] MEDS ORDERED: MOM 30ML SUSPENSION UDC PO PRN (02:00)
[2019-08-02] MEDS ORDERED: ONDANSETRON 4 MG TAB (S0181) PO PRN (02:15)
[2019-08-02] MEDS: methylPREDNISolone INJ 125 MG/2 ML VIAL (J2930) IV SCH ×3 (02:24→17:01)
[2019-08-02] MEDS: ONDANSETRON 4MG/2ML VIAL (J2405) IV PRN ×4 (02:24→20:14)
[2019-08-02] MEDS: HumaLOG INSULIN (NovoLOG) PER UNIT SC SCH ×5 (02:57→20:02)
[2019-08-02 02:58] LABS: PERCENT SATURATION 9.1 % (13.2-45.0)
[2019-08-02] MEDS ORDERED: traMADol ER 100MG TABLET (ULTRAM ER) PO ONE (04:30)
[2019-08-02] MEDS: metroNIDAZOLE 500 MG in IV 1 EA IV SCH ×3 (05:07→20:13)
[2019-08-02 06:00] VITALS: BP 161/78
--- NOTE | 2019-08-02 08:12 | REP ---
KUB: Single view. HISTORY: Followup on ileus seen on CT. Comparison plain films 07/22/2018. Comparison CT study August 01, 2019. FINDINGS: There is a 6 mm calculus projecting in the right kidney. There are several smaller calculi projecting on the left although these are less conspicuous. There are a few loops of air-filled central abdominal small bowel but these do not appear dilated on plain radiographs. Air is seen in the transverse colon and air and stool is visible in the right colon. There are multiple phleboliths in the pelvis. Psoas margins are intact. No acute bony abnormality. IMPRESSION: No small bowel dilation is seen. Bilateral intrarenal nephrolithiasis. Electronically Signed by Ruddy Westfall MD 08/02/2019 08:46 A
[2019-08-02] MEDS: ENALAPRIL MALEATE 10 MG TAB PO SCH ×2 (08:16→08:46)
[2019-08-02] MEDS: VITAMIN D 1,000 INTERNATIONAL UNITS TABLET PO SCH ×2 (08:16→08:46)
[2019-08-02] MEDS: GABAPENTIN 300 MG CAP PO SCH ×2 (08:17→08:46)
[2019-08-02] MEDS: CALCIUM/VITAMIN D 500 MG TAB PO SCH ×2 (08:17→08:46)
[2019-08-02] MEDS: FERROUS SULFATE 325MG TAB PO SCH ×2 (08:17→08:45)
[2019-08-02] MEDS: hydroCHLOROthiazide 25 MG TAB PO SCH ×2 (08:17→08:45)
[2019-08-02] MEDS: PANTOPRAZOLE 40MG TAB (PROTONIX) PO SCH ×2 (08:17→08:46)
[2019-08-02] MEDS: CYANOCOBALAMIN 500 MCG TAB PO SCH ×2 (08:17→08:46)
[2019-08-02] MEDS: ENOXAPARIN 40 MG/0.4 ML SYRINGE (J1650) SC SCH (08:18)
[2019-08-02 08:20] LABS: HEMATOCRIT 35.1 % (36.0-47.0); HEMOGLOBIN 11.5 g/dl (12.0-15.5); MEAN CORPUSCULAR HEMOGLOBIN 30.4 pg (27.0-33.0); MEAN CORPUSCULAR HGB CONC 32.8 g/dl (32.0-36.5); MEAN CORPUSCULAR VOLUME 92.9 fl (80.0-96.0); PLATELET COUNT, AUTOMATED 268 10^3/uL (150-450); RED BLOOD COUNT 3.78 10^6/uL (4.00-5.40); WHITE BLOOD COUNT 12.3 10^3/uL (4.0-10.0)
[2019-08-02 08:54] LABS: ALBUMIN 3.7 GM/DL (3.2-5.2); ALT/SGPT 28 U/L (12-78); BILIRUBIN,TOTAL 0.8 MG/DL (0.2-1.0); BLOOD UREA NITROGEN 9 MG/DL (7-18); CALCIUM LEVEL 8.6 MG/DL (8.8-10.2); CARBON DIOXIDE LEVEL 23 MEQ/L (21-32); CHLORIDE LEVEL 101 MEQ/L (98-107); CREATININE FOR GFR 0.91 MG/DL (0.55-1.30); GLOMERULAR FILTRATION RATE > 60.0 (>45); GLUCOSE, FASTING 267 MG/DL (70-100); POTASSIUM SERUM 4.2 MEQ/L (3.5-5.1); SODIUM LEVEL 137 MEQ/L (136-145)
[2019-08-02] MEDS ORDERED: DOCUSATE SODIUM 100 MG CAP PO SCH (09:00)
[2019-08-02] MEDS ORDERED: traMADol ER 100MG TABLET (ULTRAM ER) PO SCH ×2 (09:00→21:00)
[2019-08-02 09:03] VITALS: BP 136/67
[2019-08-02] MEDS: MORPHINE 4 MG/ML 1ML VIAL/SYRINGE (J2270) IV PRN ×3 (10:05→20:14)
--- NOTE | 2019-08-02 10:57 | IPNPDOC ---
Subjective Date Seen The patient was seen on 08/02/19. Subjective Chief Complaint/HPI Patient is still complaining of severe abdominal pain and also complaining of nausea General: Denies: ROS Unobtainable, Chills, Night Sweats, Fatigue, Malaise, Normal Appetite, Other Symptoms Constitutional: Denies: Chills, Fever, Malaise, Night Sweats, Weakness, Fatigue, Weight Loss, Lethargy, Other Skin: Denies: Rash, Lesions, Jaundice, Bruising, Itching, Dry, Breakdown, Nail Changes, Other Pulmonary: Denies: Dyspnea, Cough, Pleuritic Chest Pain, Other Symptoms Cardiovascular: Denies: Chest Pain, Palpitations, Orthopnea, Paroxysmal Noc. Dyspnea, Edema, Lt Headedness, Other Symptoms Gastrointestinal: Reports: Abdominal Pain Genitourinary: Denies: Dysuria, Frequency, Incontinence, Hematuria, Retention, Other Symptoms Musculoskeletal: Denies: Neck Pain, Back Pain, Shoulder Pain, Arm Pain, Hand Pain, Leg Pain, Foot Pain, Joint Pain, Muscle Pain, Spasms, Other Symptoms Neurological: Denies: Weakness, Numbness, Incoordination, Change in speech, Confusion, Seizures, Other Symptoms Objective Physical Examination General Exam: Positive: Alert Eye Exam: Positive: PERRLA, Conjunctiva & lids normal Chest Exam: Positive: Clear to auscultation, Normal air movement Heart Exam: Positive: Rate Normal, Normal S1, Normal S2 Abdomen Exam: Positive: Normal bowel sounds, Other (. Positive tenderness all over the abdomen on palpation. No rebound tenderness. Bowel sounds present) Extremity Exam: Positive: Normal pulses Skin Exam: Positive: Nl turgor and temperature Neuro Exam: Positive: Strength at 5/5 X4 ext, Sensation Intact, Cranial Nerves 3-12 NL Assessment /Plan Problems (1) Exacerbation of Crohn's disease Status: Acute Problem Text: Exacerbation of Crohn's disease with possible ileus versus partial SBO Patient does not qualify for sepsis criteria Repeat lactic acid level is 5.5 which is increased from previous one CT abdomen consistent with exacerbation of Crohn's disease Nothing by mouth except meds IV fluids normal saline 800 mL has been started secondary to elevated lactic acid level Solu-Medrol will be changed to 60 mg IV every 8 hours Pain management with morphine sulfate ordered Zofran 4 mg IV every 4 hours when necessary for nausea, vomiting Patient was seen by Dr. June for possible partial SBO Further recommendations from surgery awaited Patient was started on metronidazole on admission, but I will add Fortaz 1 g dot ry 8 hours for broad-spectrum coverage We will repeat lactic acid at 12:00, now and will keep repeating the lipids within normal range Monitor patient clinically and with does not improve with the current management, then a GI consult can be requested Continue home meds (2) Anemia Status: Acute Problem Text: Normocytic normochromic anemia most likely secondary to inflammatory bowel disease follow-up iron panel which was ordered on admission (3) Partial small bowel obstruction Status: Acute Problem Text: Questionable ileus versus small bowel obstruction Surgical consult was called and patient was seen by Dr. June Official report is pending, most likely conservative medical management will be continued Continue IV fluids and pain management (4) HTN (hypertension) Problem Text: Continue home meds (5) Diabetes mellitus Problem Text: Gastric blood sugar every 6 hours with coverage Hold oral hypoglycemic agents Plan/VTE VTE Prophylaxis Ordered?: Yes VS, I&O, 24H, Fishbone Vital Signs/I&O Vital Signs Date Time Temp Pulse Resp B/P (MAP) Pulse Ox O2 Delivery O2 Flow Rate FiO2 08/02/19 10:05 18 Room Air 08/02/19 09:03 97.5 97 136/67 (90) 98 I&O- Last 24 Hours up to 6 AM 08/02/19 06:00 Intake Total 1000 ml Balance 1000 ml Laboratory Data 24H LABS Laboratory Tests 2 08/01/19 17:54: POC Glucose (Misc Panel) 260H, POC Sodium (Misc Panel) 138, POC Potassium (Misc Panel) 3.7, POC Chloride (Misc Panel) 100, POC Total CO2 (Misc Panel) 22.0L, POC Blood Urea Nitrogen (Misc Panel 15, POC Ionized Calcium (Misc Panel) 4.5, POC Creatinine (Misc Panel) 0.7, POC Hematocrit (Misc Panel) 32.0L 08/01/19 17:55: Immature Granulocyte % (Auto) 0.4, Neutrophils (%) (Auto) 78.3H, Lymphocytes (%) (Auto) 13.1L, Monocytes (%) (Auto) 6.0H, Eosinophils (%) (Auto) 1.6, Basophils (%) (Auto) 0.6, Neutrophils # (Auto) 5.4, Lymphocytes # (Auto) 0.9L, Monocytes # (Auto) 0.4, Eosinophils # (Auto) 0.1, Basophils # (Auto) 0.0, Nucleated Red Blood Cells % (auto) 0.0, Lactic Acid Level 5.4*H, Total Bilirubin 0.5, Direct Bilirubin 0.1, Aspartate Amino Transf (AST/SGOT) 48H, Alanine Aminotransferase (ALT/SGPT) 32, Alkaline Phosphatase 93, Total Protein 6.9, Albumin 3.7, Albumin/Globulin Ratio 1.16, Lipase 156 08/01/19 19:09: Urine Color STRAW, Urine Appearance CLEAR, Urine pH 5.0, Urine Specific Horace 1.012, Urine Protein 1+H, Urine Glucose (UA) 3+H, Urine Ketones NEGATIVE, Urine Blood NEGATIVE, Urine Nitrite NEGATIVE, Urine Bilirubin NEGATIVE, Urine Urobilinogen 0.2, Urine Leukocyte Esterase NEGATIVE, Urine WBC (Auto) 0, Urine RBC (Auto) 1, Urine Hyaline Casts (Auto) 0, Urine Bacteria (Auto) NEGATIVE, Urin e Squamous Epithelial Cells 0, Urine Sperm (Auto) 08/02/19 02:15: Iron Level 40L, Total Iron Binding Capacity 439, Transferrin % Saturation 9.1L, Ferritin 17 08/02/19 02:17: Lactic Acid Level 3.4*H 08/02/19 02:56: Bedside Glucose (Misc Panel) 210H 08/02/19 06:37: Lactic Acid Followup at 4 Hours 5.5*H 08/02/19 07:50: Bedside Glucose (Misc Panel) 263H 08/02/19 08:05: Nucleated Red Blood Cells % (auto) 0.0, Anion Gap 13, Glomerular Filtration Rate > 60.0, Calcium Level 8.6L, Total Bilirubin 0.8#, Aspartate Amino Transf (AST/SGOT) 37, Alanine Aminotransferase (ALT/SGPT) 28, Alkaline Phosphatase 86, Total Protein 7.0, Albumin 3.7, Albumin/Globulin Ratio 1.12 CBC/BMP Laboratory Tests 08/01/19 17:55 08/02/19 08:05 DORIS HUTCHINSON MD Aug 02, 2019 10:57
[2019-08-02] MEDS ORDERED: NS 1,000 ML IV SCH (11:00)
[2019-08-02] MEDS: PANTOPRAZOLE 40MG INJ (PROTONIX) (C9113) IV SCH ×2 (12:07→20:13)
[2019-08-02] MEDS: cefTAZidime 1 GM in D5W MINI-BAG PLUS 50 ML IV SCH ×2 (13:10→21:48)
[2019-08-02] MEDS: NS 1,000 ML IV SCH ×2 (13:10→20:14)
[2019-08-02 14:30] VITALS: BP 137/69
[2019-08-02] MEDS ORDERED: ATORVASTATIN 10 MG TAB PO SCH (21:00)
--- NOTE | 2019-08-02 21:26 | CR ---
DATE OF CONSULTATION: 08/02/2019 REASON FOR CONSULTATION: Question small bowel obstruction versus ileus (with a Crohn's exacerbation). BRIEF HISTORY OF PRESENT ILLNESS: The patient is a 63-year-old female who presented with increasing abdominal pain, nausea, vomiting with increasing diarrhea. She has been on Stelara for her Crohn's disease and has been relatively doing well with this, although she has had an admission a couple months ago for a Crohn's exacerbation. She presents with typical presentation of Crohn's exacerbation with diarrhea, crampy abdominal pain, nausea, vomiting and abdominal distension with a localized ileus in the right lower quadrant with some inflammatory changes in the small bowel appreciated on the CT scan. I was asked to see her just in case surgical intervention may be necessary, and she has been seeing Dr. Martinez for gastrointestinal (GI) issues. PAST MEDICAL HISTORY: Her past medical history is significant for history of Crohn disease, history of ileus, history of ischemic bowel, history of diverticulitis, history of hypertension, non-insulin dependent diabetes mellitus, history of right breast abscess, obesity, MEDICATIONS: Include amlodipine, atorvastatin, Black Cohash, calcium carbonate, vitamin D3, vitamin B12, enalapril, iron, gabapentin, hydrochlorothiazide, magnesium oxide, meloxicam, metformin, pantoprazole, Stelara. PHYSICAL EXAM: The patient is a 63-year-old female, looks stated age. HEENT is unremarkable. Neck: Supple without adenopathy. Lungs: Clear to auscultation. Heart is regular. Abdomen is softly distended, has some tenderness on the right-hand side without significant guarding, rebound or peritoneal signs. IMPRESSION AND PLAN: The patient has an ileus on her CT scan yesterday, and it still appears that way today. Her white count bumped, but I anticipate that is from the steroids that she was given overnight, She overall is feeling better clinically, not significantly thirsty, not from the standpoint of really is not desiring to have any significant p.o. at this point. And I anticipate with the ileus that seems as though it is still persistent at this time, I would go slow with her diet and advancing this. Would recommend waiting until tomorrow to start her on clear liquids and once she tolerates this well and she is having less distension, her diet can be advanced to tolerated. I would recommend continuing with evaluation from her cloth bale header and contact me if you have any progression of symptoms that are concerning for surgical issues.
[2019-08-02 22:00] VITALS: BP 126/67
[2019-08-03] MEDS: ONDANSETRON 4MG/2ML VIAL (J2405) IV PRN ×5 (01:36→20:44)
[2019-08-03] MEDS: methylPREDNISolone INJ 125 MG/2 ML VIAL (J2930) IV SCH ×3 (01:37→17:12)
[2019-08-03] MEDS: MORPHINE 4 MG/ML 1ML VIAL/SYRINGE (J2270) IV PRN ×4 (01:37→15:47)
[2019-08-03] MEDS: metroNIDAZOLE 500 MG in IV 1 EA IV SCH ×3 (04:03→20:06)
[2019-08-03] MEDS: NS 1,000 ML IV SCH ×3 (04:05→20:06)
[2019-08-03] MEDS: cefTAZidime 1 GM in D5W MINI-BAG PLUS 50 ML IV SCH ×3 (05:25→21:41)
[2019-08-03 07:59] LABS: BASO % 0.1 % (0.0-1.0); HEMATOCRIT 29.4 % (36.0-47.0); LYMPH # 0.7 10^3/uL (1.5-5.0); LYMPH % 6.2 % (24.0-44.0); MONO # 0.3 10^3/uL (0.0-0.8); MONO % 2.3 % (0.0-5.0); NEUTROPHILS # 10.1 10^3/uL (1.5-8.5); NEUTROPHILS % 90.8 % (36.0-66.0); PLATELET COUNT, AUTOMATED 238 10^3/uL (150-450); RED BLOOD COUNT 3.03 10^6/uL (4.00-5.40); WHITE BLOOD COUNT 11.2 10^3/uL (4.0-10.0)
[2019-08-03 08:07] LABS: HEMOGLOBIN 9.4 g/dl (12.0-15.5)
[2019-08-03] MEDS: HumaLOG INSULIN (NovoLOG) PER UNIT SC SCH ×4 (08:21→20:07)
[2019-08-03] MEDS: PANTOPRAZOLE 40MG INJ (PROTONIX) (C9113) IV SCH ×2 (08:21→23:14)
[2019-08-03] MEDS: ENOXAPARIN 40 MG/0.4 ML SYRINGE (J1650) SC SCH (08:22)
[2019-08-03 08:25] LABS: ALBUMIN 3.4 GM/DL (3.2-5.2); ALT/SGPT 22 U/L (12-78); BILIRUBIN,TOTAL 0.4 MG/DL (0.2-1.0); BLOOD UREA NITROGEN 17 MG/DL (7-18); CALCIUM LEVEL 7.9 MG/DL (8.8-10.2); CARBON DIOXIDE LEVEL 25 MEQ/L (21-32); CHLORIDE LEVEL 106 MEQ/L (98-107); CREATININE FOR GFR 0.83 MG/DL (0.55-1.30); GLOMERULAR FILTRATION RATE > 60.0 (>45); GLUCOSE, FASTING 246 MG/DL (70-100); POTASSIUM SERUM 3.6 MEQ/L (3.5-5.1); SODIUM LEVEL 138 MEQ/L (136-145); TOTAL PROTEIN 6.5 GM/DL (6.4-8.2)
[2019-08-03] MEDS: ENALAPRIL MALEATE 10 MG TAB PO SCH (08:25)
[2019-08-03] MEDS ORDERED: POTASSIUM CHLORIDE 10 MEQ SR TABLET PO ONE (10:00)
[2019-08-03 14:00] VITALS: BP 124/69
--- NOTE | 2019-08-03 19:51 | IPNPDOC ---
Date Seen The patient was seen on 08/03/19. Progress Note SUBJECTIVE: 63-year-old female with past medical history of Crohn's disease, hypertension, diabetes mellitus, was admitted for close flare. She was started on treatment with IV steroids and antibiotics with minimal improvement in symptoms, no longer having any nausea, vomiting. She has remained nothing by mouth, has been drinking sips of water up until now, we'll did very site. She denies any shortness of breath, chest pain, constipation or diarrhea. 10 point review of systems negative except for above PHYSICAL EXAMINATION: VITAL SIGNS: Please see below. GENERAL: No distress HEENT: Normocephalic, atraumatic, moist mucous membranes NECK: Supple CARDIOVASCULAR EXAMINATION: S1, S2, no murmurs RESPIRATORY EXAMINATION: Clear to auscultation, no wheezing ABDOMINAL EXAMINATION: Soft, mild epigastric tenderness, nondistended, positive bowel sounds EXTREMITIES: Range of motion intact SKIN: No rash NEUROLOGICAL EXAMINATION: Alert and oriented 3, no focal deficits PSYCHIATRIC EXAMINATION: Calm and cooperative LABORATORY DATA, IMAGING STUDIES, MICROBIOLOGY: Please see below. DVT prophylaxis ordered?: Yes ASSESSMENT AND PLAN: 63-year-old female with past history of Crohn's disease, hypertension, diabetes mellitus, was admitted for Crohn's flare. PROBLEMS: 1. Crohn's flare: Continue IV steroids, continue antibiotic for now, IV hydration, start clear liquid diet, will advance as tolerated, continue PPI. 2. Hypertension: Continue Norvasc and lisinopril. 3. Diabetes mellitus: Sliding scale insulin before meals and at bedtime DVT prophylaxis: Lovenox. GI prophylaxis: PPI VS, I&O, 24H, Fishbone Vital Signs/I&O Vital Signs Date Time Temp Pulse Resp B/P (MAP) Pulse Ox O2 Delivery O2 Flow Rate FiO2 08/03/19 15:57 18 Room Air 08/03/19 14:00 96.7 76 124/69 (87) 95 I&O- Last 24 Hours up to 6 AM 08/03/19 06:00 Intake Total 1080 ml Output Total 700 ml Balance 380 ml Laboratory Data 24H LABS Laboratory Tests 2 08/02/19 19:53: Bedside Glucose (Misc Panel) 196H 08/02/19 23:30: Lactic Acid Followup at 4 Hours 2.0 08/03/19 05:52: Bedside Glucose (Misc Panel) 222H 08/03/19 07:31: Immature Granulocyte % (Auto) 0.6, Neutrophils (%) (Auto) 90.8H, Lymphocytes (%) (Auto) 6.2L, Monocytes (%) (Auto) 2.3, Eosinophils (%) (Auto) 0.0, Basophils (%) (Auto) 0.1, Neutrophils # (Auto) 10.1H, Lymphocytes # (Auto) 0.7L, Monocytes # (Auto) 0.3, Eosinophils # (Auto) 0.0, Basophils # (Auto) 0.0, Nucleated Red Blood Cells % (auto) 0.0, Anion Gap 7L, Glomerular Filtration Rate > 60.0, Calcium Level 7.9L, Total Bilirubin 0.4, Aspartate Amino Transf (AST/SGOT) 16, Alanine Aminotransferase (ALT/SGPT) 22, Alkaline Phosphatase 65, Total Protein 6.5, Albumin 3.4, Albumin/Globulin Ratio 1.10 08/03/19 11:23: Bedside Glucose (Misc Panel) 181H 08/03/19 16:30: Bedside Glucose (Misc Panel) 185H CBC/BMP Laboratory Tests 08/03/19 07:31 JACE CADET MD Aug 03, 2019 19:51
[2019-08-03] MEDS: ACETAMINOPHEN TAB 650MG DOSE (2X325MG) PO PRN (20:11)
[2019-08-03 22:00] VITALS: BP 133/57
[2019-08-04] MEDS: methylPREDNISolone INJ 125 MG/2 ML VIAL (J2930) IV SCH ×2 (00:22→08:50)
[2019-08-04] MEDS: MORPHINE 4 MG/ML 1ML VIAL/SYRINGE (J2270) IV PRN ×2 (00:23→12:01)
[2019-08-04] MEDS: metroNIDAZOLE 500 MG in IV 1 EA IV SCH (03:59)
[2019-08-04] MEDS: cefTAZidime 1 GM in D5W MINI-BAG PLUS 50 ML IV SCH (05:17)
[2019-08-04] MEDS: ACETAMINOPHEN TAB 650MG DOSE (2X325MG) PO PRN ×3 (05:17→19:37)
[2019-08-04] MEDS: ONDANSETRON 4MG/2ML VIAL (J2405) IV PRN ×2 (05:18→12:00)
[2019-08-04 06:48] VITALS: BP 149/68
[2019-08-04 07:26] LABS: HEMATOCRIT 29.5 % (36.0-47.0); HEMOGLOBIN 9.3 g/dl (12.0-15.5); MEAN CORPUSCULAR HEMOGLOBIN 30.5 pg (27.0-33.0); MEAN CORPUSCULAR HGB CONC 31.5 g/dl (32.0-36.5); MEAN CORPUSCULAR VOLUME 96.7 fl (80.0-96.0); PLATELET COUNT, AUTOMATED 236 10^3/uL (150-450); RED BLOOD COUNT 3.05 10^6/uL (4.00-5.40)
[2019-08-04 07:49] LABS: BLOOD UREA NITROGEN 21 MG/DL (7-18); CARBON DIOXIDE LEVEL 24 MEQ/L (21-32); CHLORIDE LEVEL 106 MEQ/L (98-107); CREATININE FOR GFR 0.81 MG/DL (0.55-1.30); GLOMERULAR FILTRATION RATE > 60.0 (>45); GLUCOSE, FASTING 238 MG/DL (70-100); MAGNESIUM LEVEL 1.9 MG/DL (1.8-2.4); PHOSPHORUS LEVEL 3.9 MG/DL (2.5-4.9); POTASSIUM SERUM 4.1 MEQ/L (3.5-5.1); SODIUM LEVEL 137 MEQ/L (136-145)
[2019-08-04] MEDS: ENALAPRIL MALEATE 10 MG TAB PO SCH (08:49)
[2019-08-04] MEDS: ENOXAPARIN 40 MG/0.4 ML SYRINGE (J1650) SC SCH (08:52)
[2019-08-04] MEDS: PANTOPRAZOLE 40MG INJ (PROTONIX) (C9113) IV SCH ×2 (08:52→20:56)
[2019-08-04] MEDS: HumaLOG INSULIN (NovoLOG) PER UNIT SC SCH ×4 (08:53→21:00)
[2019-08-04] MEDS: NS 1,000 ML IV SCH (08:56)
[2019-08-04 13:36] VITALS: BP 138/68
--- NOTE | 2019-08-04 13:37 | REP ---
CT ABDOMEN AND PELVIS WITHOUT CONTRAST: CT abdomen and pelvis performed without oral or IV contrast. Sagittal and coronal reconstruction images are performed. Comparison is made with prior study of 08/01/2019. There is a very small right pleural effusion with mild adjacent right lower lobe atelectasis/infiltrate. The liver is grossly unremarkable, as is the gallbladder. The spleen is normal in size. There adrenal glands are normal. Pancreas is grossly unremarkable. There are tiny intrarenal calcifications again seen bilaterally. There appears to be a 3.0 mm calculus at the left ureterovesical junction. There is no hydroureteronephrosis. No other bladder calculi are seen. There is no abdominal aortic aneurysm. There is no adenopathy. There is no free air or free fluid. I see no bowel wall thickening. The previously noted dilated small bowel loops in the right abdomen have resolved with no current evidence for an obstructive process. No pelvic mass is seen. There is mild diffuse edema in the periportal region which is nonspecific. IMPRESSION: Small right pleural effusion with mild adjacent atelectasis/infiltrate in the right lower lobe. There are multiple tiny calculi in both kidneys. There is no hydroureteronephrosis. However there is a 3.0 mm stone at the left ureterovesical junction. The previously noted pattern of small bowel obstruction has resolved. There is mild periportal edema which is nonspecific. This is not seen on the prior CT of 08/01/2019. Electronically Signed by Nikolas Wilson MD 08/04/2019 08:01 P
[2019-08-04] MEDS: predniSONE 50 MG TAB PO SCH (13:54)
--- NOTE | 2019-08-04 16:32 | IPNPDOC ---
Date Seen The patient was seen on 08/04/19. Progress Note SUBJECTIVE: 63-year-old female with past medical history of Crohn's disease, hypertension, diabetes mellitus, was admitted for close flare. She was started on treatment with IV steroids and antibiotics with minimal improvement in symptoms, no longer having any nausea, vomiting. She has remained nothing by mouth, has been drinking sips of water up until now, we'll did very site. She denies any shortness of breath, chest pain, constipation or diarrhea. 08/04/2019 Patient is to have epigastric pain, no longer having any nausea, vomiting or diarrhea. She has tolerated very little oral intake due to persistent abdominal pain and concern for worsening pain/vomiting. She has only been drinking sips of water, encouraged patient to try more oral intake as she has been tolerating the sips of water without any difficulty. 10 point review of systems negative except for above PHYSICAL EXAMINATION: VITAL SIGNS: Please see below. GENERAL: No distress HEENT: Normocephalic, atraumatic, moist mucous membranes NECK: Supple CARDIOVASCULAR EXAMINATION: S1, S2, no murmurs RESPIRATORY EXAMINATION: Clear to auscultation, no wheezing ABDOMINAL EXAMINATION: Soft, mild epigastric tenderness, nondistended, positive bowel sounds EXTREMITIES: Range of motion intact SKIN: No rash NEUROLOGICAL EXAMINATION: Alert and oriented 3, no focal deficits PSYCHIATRIC EXAMINATION: Calm and cooperative LABORATORY DATA, IMAGING STUDIES, MICROBIOLOGY: Please see below. DVT prophylaxis ordered?: Yes ASSESSMENT AND PLAN: 63-year-old female with past history of Crohn's disease, hypertension, diabetes mellitus, was admitted for Crohn's flare. PROBLEMS: 1. Crohn's flare: Discontinued IV steroids, started on prednisone 50 mg daily, discontinue antibiotics, continue IV hydration until oral intake improves, clear liquid diet, will advance as tolerated, continue PPI. 2. Hypertension: Continue Norvasc and lisinopril. 3. Diabetes mellitus: Sliding scale insulin before meals and at bedtime DVT prophylaxis: Lovenox. GI prophylaxis: PPI VS, I&O, 24H, Fishbone Vital Signs/I&O Vital Signs Date Time Temp Pulse Resp B/P (MAP) Pulse Ox O2 Delivery O2 Flow Rate FiO2 08/04/19 13:36 97.6 67 18 138/68 (91) 96 Room Air I&O- Last 24 Hours up to 6 AM 08/04/19 06:00 Intake Total 1600 ml Output Total 500 ml Balance 1100 ml Laboratory Data 24H LABS Laboratory Tests 2 08/03/19 20:05: Bedside Glucose (Misc Panel) 182H 08/04/19 07:13: Nucleated Red Blood Cells % (auto) 0.0, Anion Gap 7L, Glomerular Filtration Rate > 60.0, Calcium Level 8.0L, Phosphorus Level 3.9, Magnesium Level 1.9 08/04/19 11:54: Bedside Glucose (Misc Panel) 193H 08/04/19 16:22: Bedside Glucose (Misc Panel) 205H CBC/BMP Laboratory Tests 08/04/19 07:13 JACE CADET MD Aug 04, 2019 16:32
[2019-08-04 21:02] VITALS: BP 132/67
[2019-08-05] MEDS: ONDANSETRON 4MG/2ML VIAL (J2405) IV PRN ×2 (00:07→04:29)
[2019-08-05] MEDS: MORPHINE 4 MG/ML 1ML VIAL/SYRINGE (J2270) IV PRN (00:07)
[2019-08-05 06:24] VITALS: BP 153/68
[2019-08-05 06:34] LABS: HEMATOCRIT 29.1 % (36.0-47.0); HEMOGLOBIN 9.6 g/dl (12.0-15.5); MEAN CORPUSCULAR HEMOGLOBIN 31.2 pg (27.0-33.0); MEAN CORPUSCULAR VOLUME 94.5 fl (80.0-96.0); PLATELET COUNT, AUTOMATED 226 10^3/uL (150-450); RED BLOOD COUNT 3.08 10^6/uL (4.00-5.40); WHITE BLOOD COUNT 6.8 10^3/uL (4.0-10.0)
[2019-08-05 07:00] LABS: BLOOD UREA NITROGEN 18 MG/DL (7-18); CALCIUM LEVEL 8.6 MG/DL (8.8-10.2); CARBON DIOXIDE LEVEL 28 MEQ/L (21-32); CHLORIDE LEVEL 105 MEQ/L (98-107); CREATININE FOR GFR 0.69 MG/DL (0.55-1.30); GLOMERULAR FILTRATION RATE > 60.0 (>45); GLUCOSE, FASTING 163 MG/DL (70-100); PHOSPHORUS LEVEL 3.5 MG/DL (2.5-4.9); POTASSIUM SERUM 3.8 MEQ/L (3.5-5.1); SODIUM LEVEL 139 MEQ/L (136-145)
[2019-08-05] MEDS: PANTOPRAZOLE 40MG INJ (PROTONIX) (C9113) IV SCH (08:42)
[2019-08-05] MEDS: ENOXAPARIN 40 MG/0.4 ML SYRINGE (J1650) SC SCH (08:42)
[2019-08-05 08:43] VITALS: BP 142/73
[2019-08-05] MEDS: ACETAMINOPHEN TAB 650MG DOSE (2X325MG) PO PRN (08:43)
[2019-08-05] MEDS: ENALAPRIL MALEATE 10 MG TAB PO SCH (08:43)
[2019-08-05] MEDS: predniSONE 50 MG TAB PO SCH (08:43)
[2019-08-05] MEDS: HumaLOG INSULIN (NovoLOG) PER UNIT SC SCH ×2 (08:44→12:18)
[2019-08-05] MEDS ORDERED: PRED50TA PO (12:46)
--- NOTE | 2019-08-05 19:47 | DS.PDOC ---
Discharge Summary General Date of Admission Aug 01, 2019 at 23:24 Date of Discharge 08/05/19 Attending Physician: JACE CADET MD Discharge Summary PROCEDURES PERFORMED DURING STAY: [None]. ADMITTING DIAGNOSES: 1. Crohn's flare DISCHARGE DIAGNOSES: 1. Crohn's flare COMPLICATIONS/CHIEF COMPLAINT: Crohn's Disease. HISTORY OF PRESENT ILLNESS: 63 y.o female w/ PMH of Crohn's disease, HTN & DM was admitted for Crohn's flare. She was treated w/ IV steroids with significant clinical improvement. She is no longer having nausea, vomiting and diarrhea. She is tolerating a solid diet, abdominal pain is improving. She is clinically and hemodynamically stable for discharge with outpatient follow up. She will be discharged on a short course of Prednisone. She is advised to follow up w/ GI & PCP in 1-2 weeks. HOSPITAL COURSE: as above DISCHARGE MEDICATIONS: Please see below. ALLERGIES: Please see below. PHYSICAL EXAMINATION ON DISCHARGE: VITAL SIGNS: Please see below. GENERAL: no distress HEENT: normocephalic, moist mucus membranes NECK: supple CARDIOVASCULAR EXAMINATION: S1, S2 RESPIRATORY EXAMINATION: clear to auscultation ABDOMINAL EXAMINATION: soft, mild epigastric tenderness, non-distended, +BS EXTREMITIES: ROM intact SKIN: no rash NEUROLOGICAL EXAMINATION: no focal deficits PSYCHIATRIC EXAMINATION: calm LABORATORY DATA: Please see below. IMAGING: CT w/ improvement in SBO, portal edema noted. PROGNOSIS: fair ACTIVITY: As tolerated DIET: dash DISCHARGE PLAN: follow up w/ GI & PCP in 1-2 weeks DISPOSITION: 01 Home, Self-Care. DISCHARGE INSTRUCTIONS: 1. as above DISCHARGE CONDITION: Stable TIME SPENT ON DISCHARGE: Greater than 35 minutes. Vital Signs/I&Os Vital Signs Date Time Temp Pulse Resp B/P (MAP) Pulse Ox O2 Delivery O2 Flow Rate FiO2 08/05/19 08:43 74 142/73 08/05/19 06:24 98.2 18 99 Room Air I&O- Last 24 Hours up to 6 AM 08/05/19 06:00 Intake Total 1910 ml Output Total 1600 ml Balance 310 ml Laboratory Data Labs 24H Laboratory Tests 2 08/04/19 20:55: Bedside Glucose (Misc Panel) 181H 08/05/19 06:11: Nucleated Red Blood Cells % (auto) 0.0, Anion Gap 6L, Glomerular Filtration Rate > 60.0, Calcium Level 8.6L, Phosphorus Level 3.5, Magnesium Level 2.0 08/05/19 11:57: Bedside Glucose (Misc Panel) 156H CBC/BMP Laboratory Tests 08/05/19 06:11 FSBS Laboratory Tests Test 08/04/19 20:55 08/05/19 11:57 Range/Units Bedside Glucose (Misc Panel) 181 156 80-115 MG/DL Discharge Medications Scheduled Amlodipine Besylate (Amlodipine Besylate) 2.5 Mg Tab, 2.5 MG PO DAILY, (Reported) Atorvastatin Calcium (Atorvastatin Calcium) 10 Mg Tab, 10 MG PO QHS, (Reported) Black Cohosh Root (Black Cohosh) 200 Mg Capsule, 200 MG PO BID, (Reported) Calcium Carbonate/Vitamin D3 (Calcium 600-Vit D3 400 Tablet) 1 Each Tablet, 1 TAB PO BID, (Reported) Cholecalciferol (Vitamin D3) (Vitamin D3) 1,000 Unit Tab, 1,000 UNIT PO DAILY, (Reported) Cyanocobalamin (Vitamin B-12) (Vitamin B-12) 1,000 Mcg Tab, 1,000 MCG PO DAILY, (Reported) Enalapril Maleate (Enalapril Maleate) 20 Mg Tab, 20 MG PO DAILY, (Reported) Ferrous Sulfate (Ferrous Sulfate) 325 Mg Tab, 325 MG PO BID, (Reported) Gabapentin (Gabapentin) 300 Mg Cap, 300 MG PO TID, (Reported) Hydrochlorothiazide (Hydrochlorothiazide) 25 Mg Tab, 25 MG PO DAILY, (Reported) Magnesium Oxide (Magnesium Oxide) 250 Mg Tab, 250 MG PO DAILY, (Reported) Metformin HCl (Metformin HCl) 1,000 Mg Tab, 1,000 MG PO BIDWM, (Reported) Pantoprazole Sodium (Pantoprazole Sodium) 40 Mg Tab, 40 MG PO DAILY, (Reported) Prednisone (Prednisone) 50 Mg Tablet, 50 MG PO DAILY Ustekinumab (Stelara) 90 Mg/1 Ml Syringe, 90 MG SC ASDIRECTED, (Reported) EVERY 8 WEEKS, NEXT INFUSION 08/18/19 Scheduled PRN Ondansetron HCl (Ondansetron HCl) 4 Mg Tablet, 4 MG PO Q6H PRN for NAUSEA OR VOMITING, (Reported) Allergies Coded Allergies: ciprofloxacin (Verified Allergy, Intermediate, rash, 01/27/19) indomethacin (Verified Allergy, Intermediate, rash, 01/27/19) infliximab (Verified Allergy, Unknown, 08/01/19) rofecoxib (Verified Allergy, Unknown, 01/27/19) tomato (Verified Allergy, Unknown, 01/27/19) diazepam (Verified Adverse Reaction, Mild, agitation, 01/27/19) JACE CADET MD Aug 05, 2019 19:47
== END 2019-08-05 16:25 | disposition home or self-care (01) | DRG 386 ==
LOC: M ED 17:15 → M ED INP 23:24 → M MS4PR 08-02 09:00
PROVIDERS: ADMIT Internal Medicine; ATTEND Internal Medicine
DX: K50.90 Crohn's disease, unspecified, without complications (principal); K56.7 Ileus, unspecified; E87.2 Acidosis; I10 Essential (primary) hypertension; E11.9 Type 2 diabetes mellitus without complications; Z79.899 Other long term (current) drug therapy; Z88.8 Allergy status to other drugs, medicaments and biological substances; Z91.018 Allergy to other foods; K57.30 Diverticulosis of large intestine without perforation or abscess without bleeding; E66.9 Obesity, unspecified; D64.9 Anemia, unspecified; Z68.37 Body mass index [BMI] 37.0-37.9, adult

== ENCOUNTER → 2019-08-16 | Outpatient (CLI) | payer MEDICARE ==
[~2019-08-16] MED LIST changes: +ONDA4TAB5 PO; +PRED50TA PO
[2019-08-16 16:24] LABS: BASO % 0.5 % (0.0-1.0); EOS # 0.1 10^3/uL (0.0-0.5); HEMATOCRIT 31.5 % (36.0-47.0); HEMOGLOBIN 10.2 g/dl (12.0-15.5); LYMPH # 1.4 10^3/uL (1.5-5.0); MEAN CORPUSCULAR HEMOGLOBIN 30.3 pg (27.0-33.0); MEAN CORPUSCULAR HGB CONC 32.4 g/dl (32.0-36.5); MEAN CORPUSCULAR VOLUME 93.5 fl (80.0-96.0); MONO # 0.5 10^3/uL (0.0-0.8); MONO % 8.2 % (0.0-5.0); NEUTROPHILS # 3.5 10^3/uL (1.5-8.5); NEUTROPHILS % 63.9 % (36.0-66.0); PLATELET COUNT, AUTOMATED 266 10^3/uL (150-450); RED BLOOD COUNT 3.37 10^6/uL (4.00-5.40); WHITE BLOOD COUNT 5.5 10^3/uL (4.0-10.0)
[2019-08-16 16:52] LABS: ALT/SGPT 25 U/L (12-78); BLOOD UREA NITROGEN 10 MG/DL (7-18); CALCIUM LEVEL 9.5 MG/DL (8.8-10.2); CARBON DIOXIDE LEVEL 29 MEQ/L (21-32); CHLORIDE LEVEL 103 MEQ/L (98-107); CREATININE FOR GFR 0.79 MG/DL (0.55-1.30); GLOMERULAR FILTRATION RATE > 60.0 (>45); GLUCOSE, FASTING 105 MG/DL (70-100); POTASSIUM SERUM 4.4 MEQ/L (3.5-5.1); SODIUM LEVEL 141 MEQ/L (136-145)
[2019-08-16 16:53] LABS: ALBUMIN 3.4 GM/DL (3.2-5.2); BILIRUBIN,TOTAL 0.4 MG/DL (0.2-1.0); TOTAL PROTEIN 6.3 GM/DL (6.4-8.2)
[2019-08-16 17:03] LABS: VITAMIN B12 LEVEL 886 PG/ML (247-911)
[2019-08-20 10:54] LABS: HEPATITIS B SURFACE ANTIGEN NEGATIVE (NEGATIVE)
== END ==
LOC: M LAB 14:22
PROVIDERS: ATTEND Internal Medicine Gastroenterology
DX: K50.00 Crohn's disease of small intestine without complications (principal)

== ENCOUNTER 2019-11-06 18:14 | Emergency (ER) | payer MEDICARE ==
[~2019-11-06] VITALS: Ht 144.8 cm; Wt 98.3 kg
[~2019-11-06 18:14] MED LIST changes: -ARTIDRO2 OU; +ONDA-83 PO; -ONDA4TAB5 PO; +POLYOPD OU
[2019-11-06 18:47] LABS: BASO % 0.4 % (0.0-1.0); EOS # 0.1 10^3/uL (0.0-0.5); EOS % 1.1 % (0.0-3.0); HEMATOCRIT 35.4 % (36.0-47.0); HEMOGLOBIN 11.9 g/dl (12.0-15.5); LYMPH # 0.9 10^3/uL (1.5-5.0); LYMPH % 10.6 % (24.0-44.0); MEAN CORPUSCULAR HEMOGLOBIN 30.8 pg (27.0-33.0); MEAN CORPUSCULAR HGB CONC 33.6 g/dl (32.0-36.5); MEAN CORPUSCULAR VOLUME 91.7 fl (80.0-96.0); MONO # 0.5 10^3/uL (0.0-0.8); MONO % 5.9 % (0.0-5.0); NEUTROPHILS # 6.5 10^3/uL (1.5-8.5); NEUTROPHILS % 81.5 % (36.0-66.0); PLATELET COUNT, AUTOMATED 263 10^3/uL (150-450); RED BLOOD COUNT 3.86 10^6/uL (4.00-5.40)
[2019-11-06] MEDS ORDERED: NS 1,000 ML IV SCH (18:50)
[2019-11-06] MEDS ORDERED: ONDANSETRON 4MG/2ML VIAL (J2405) IV ONE (19:00)
[2019-11-06] MEDS ORDERED: MORPHINE 4 MG/ML 1ML VIAL/SYRINGE (J2270) IV ONE ×3 (19:00→21:30)
[2019-11-06 19:11] LABS: ALBUMIN 4.1 GM/DL (3.2-5.2); ALT/SGPT 34 U/L (12-78); BILIRUBIN,DIRECT 0.3 MG/DL (0.0-0.2); BILIRUBIN,TOTAL 0.8 MG/DL (0.2-1.0); BLOOD UREA NITROGEN 10 MG/DL (7-18); C REACTIVE PROTEIN QUANTITATIV 0.55 MG/DL (0.00-0.30); CALCIUM LEVEL 9.2 MG/DL (8.8-10.2); CARBON DIOXIDE LEVEL 27 MEQ/L (21-32); CHLORIDE LEVEL 100 MEQ/L (98-107); CREATININE FOR GFR 0.83 MG/DL (0.55-1.30); GLOMERULAR FILTRATION RATE > 60.0 (>45); GLUCOSE, FASTING 180 MG/DL (70-100); LIPASE 96 U/L (73-393); SODIUM LEVEL 136 MEQ/L (136-145); TOTAL PROTEIN 7.2 GM/DL (6.4-8.2)
[2019-11-06] MEDS ORDERED: dexameTHASONE 20 MG/5 ML VIAL (J1100) IV ONE (19:15)
[2019-11-06] MEDS: GASTROGRAFIN SOLUTION 30ML PO SCH ×2 (19:15→20:01)
[2019-11-06 19:23] LABS: ERYTHROCYTE SEDIMENTATION RATE 15 mm/hr (0-30)
[2019-11-06] MEDS ORDERED: ISOVUE-370 76% 100ML VIAL (Q9967) As Ordered ONE (20:42)
--- NOTE | 2019-11-06 21:15 | REPVR ---
PROCEDURE INFORMATION: Exam: CT Abdomen And Pelvis With Contrast Exam date and time: 11/06/2019 8:46 PM Age: 63 years old Clinical indication: Abdominal pain; Generalized; Additional info: Upper abd pain HX crohns TECHNIQUE: Imaging protocol: Computed tomography of the abdomen and pelvis with intravenous contrast. Radiation optimization: All CT scans at this facility use at least one of these dose optimization techniques: automated exposure control; mA and/or kV adjustment per patient size (includes targeted exams where dose is matched to clinical indication); or iterative reconstruction. Contrast material: ISOVUE 370; Contrast volume: 100 ml; Contrast route: IV; COMPARISON: CT ABD/PEL W/IV ORAL CONTRAS 08/01/2019 9:37 PM FINDINGS: Liver: The liver attenuation is 47 Hounsfield units and the spleen is 107 Hounsfield units. Gallbladder and bile ducts: Normal. No calcified stones. No ductal dilation. Pancreas: Normal. No ductal dilation. Spleen: Normal. No splenomegaly. Adrenals: Normal. No mass. Kidneys and ureters: Lobular kidneys with areas of parenchymal loss, particularly posteriorly on the left. Small nonobstructing bilateral renal calculi. There is a left renal cyst measuring up to 16 mm consistent with a Bosniak 1 cyst. No follow-up needed. Stomach and bowel: There is colonic diverticulosis without evidence of diverticulitis. Nondilated small bowel with a few upper normal segments and a few scattered air-fluid levels with suggestion of a point of transition in the anterolateral right abdomen in the distal ileum. Appendix: A normal appendix is seen extending lateral to the hepatic tip. Minimal free fluid lateral to the hepatic tip and around the appendix and in the lateral right pelvis. Intraperitoneal space: There is slight induration of supplying mesentery to small bowel segments in the right abdomen. Vasculature: Unremarkable. No abdominal aortic aneurysm. Lymph nodes: Unremarkable. No enlarged lymph nodes. Bladder: Unremarkable as visualized. Reproductive: Unremarkable as visualized. Bones/joints: Unremarkable. No acute fracture. Soft tissues: Unremarkable. Other findings: Minimal lingular fibro-atelectatic change. IMPRESSION: 1. Decreased small bowel distention since 08/01/2019 with upper normal residual distension. An area of transition is in a similar location to the prior study but is less dramatic or abrupt. There is some induration of the supplying mesentery to the area and may reflect a residual area of stricture/partial obstruction or possibly enteritis. 2. Minimal free fluid in the right pelvis and lateral to the liver which is slightly decreased overall. 3. Fatty infiltration of the liver. 4. Lobular kidneys with areas of parenchymal loss, particularly on the left with multiple nonobstructing bilateral renal calculi. There is resolution of a left UVJ calculus since 08/04/2019. 5. Colonic diverticulosis without diverticulitis. Electronically signed by: Parveen Zaman On 11/06/2019 21:14:38 PM
[2019-11-06 21:30] VITALS: BP 151/74
[2019-11-06] MEDS ORDERED: PRED20TA PO (21:30)
[2019-11-06] MEDS ORDERED: NORCO 5/325MG TABLET (BULK FOR ED) PO ONE (21:30)
--- NOTE | 2019-11-07 08:42 | ED PDOC ---
Post-Departure Follow-Up dr peña faxed formal report of ct abd/pfor fu Isabella King MD Nov 07, 2019 08:42
== END 2019-11-06 21:57 | disposition home or self-care (01) ==
LOC: M ED 18:14
DX: K50.90 Crohn's disease, unspecified, without complications (principal); K76.0 Fatty (change of) liver, not elsewhere classified; K57.30 Diverticulosis of large intestine without perforation or abscess without bleeding; E11.9 Type 2 diabetes mellitus without complications; I10 Essential (primary) hypertension; E78.5 Hyperlipidemia, unspecified; Z87.442 Personal history of urinary calculi; Z79.84 Long term (current) use of oral hypoglycemic drugs; Z79.899 Other long term (current) drug therapy; Z88.1 Allergy status to other antibiotic agents; Z88.8 Allergy status to other drugs, medicaments and biological substances; Z91.018 Allergy to other foods
CPT/HCPCS: 74177; 80048; 80076; 83690; 85025; 85652; 86140; 96374; 96375; 96376; 99284; J1100; J2270; J2405; Q9963; Q9967

== ENCOUNTER → 2019-12-08 | Outpatient (REF) | payer MEDICARE | LOC: M LAB REF 11:36 | PROVIDERS: ATTEND Internal Medicine Gastroenterology | DX: K50.018 Crohn's disease of small intestine with other complication (principal) ==

== ENCOUNTER 2020-01-23 11:25 | Inpatient (IN) | payer MEDICARE ==
[~2020-01-23] VITALS: Ht 144.8 cm; Wt 75.0 kg
[2020-01-23] MEDS ORDERED: ONDANSETRON 4MG/2ML VIAL IV ONE (12:00)
[2020-01-23] MEDS ORDERED: NS 1,000 ML IV ONE ×2 (12:00→13:15)
[2020-01-23] MEDS ORDERED: MORPHINE 2 MG/ML 1ML VIAL (J2270) IV ONE (12:00)
[2020-01-23 12:15] LABS: BASO # 0.1 10^3/uL (0.0-0.2); BASO % 0.7 % (0.0-1.0); EOS # 0.1 10^3/uL (0.0-0.5); EOS % 1.4 % (0.0-3.0); HEMATOCRIT 35.4 % (36.0-47.0); HEMOGLOBIN 11.9 g/dl (12.0-15.5); LYMPH % 13.3 % (24.0-44.0); MEAN CORPUSCULAR HEMOGLOBIN 30.8 pg (27.0-33.0); MEAN CORPUSCULAR HGB CONC 33.6 g/dl (32.0-36.5); MEAN CORPUSCULAR VOLUME 91.7 fl (80.0-96.0); MONO # 0.5 10^3/uL (0.0-0.8); MONO % 6.7 % (0.0-5.0); NEUTROPHILS # 5.9 10^3/uL (1.5-8.5); NEUTROPHILS % 77.2 % (36.0-66.0); PLATELET COUNT, AUTOMATED 289 10^3/uL (150-450); RED BLOOD COUNT 3.86 10^6/uL (4.00-5.40); WHITE BLOOD COUNT 7.6 10^3/uL (4.0-10.0)
[2020-01-23] MEDS ORDERED: GASTROGRAFIN SOLUTION 30ML (Q9963) As Ordered ONE (12:21)
[2020-01-23 12:39] LABS: ALBUMIN 3.8 GM/DL (3.2-5.2); BILIRUBIN,DIRECT 0.1 MG/DL (0.0-0.2); BILIRUBIN,TOTAL 0.8 MG/DL (0.2-1.0); TOTAL PROTEIN 7.2 GM/DL (6.4-8.2)
[2020-01-23] MEDS: GASTROGRAFIN SOLUTION 30ML PO SCH ×2 (12:40→13:20)
[2020-01-23] MEDS ORDERED: MORPHINE 4 MG/ML 1ML VIAL/SYRINGE (J2270) IV ONE (13:15)
[2020-01-23] MEDS ORDERED: METOCLOPRAMIDE INJ 10MG/2ML VIAL (J2765 PER 1) IV ONE (13:15)
[2020-01-23] MEDS ORDERED: ISOVUE-370 76% 100ML VIAL As Ordered ONE (13:47)
[2020-01-23 14:32] LABS: C REACTIVE PROTEIN QUANTITATIV 0.41 MG/DL (0.00-0.30)
[2020-01-23 14:45] LABS: ERYTHROCYTE SEDIMENTATION RATE 14 mm/hr (0-30)
[2020-01-23] MEDS ORDERED: BUDE3CAP PO (14:50)
[2020-01-23] MEDS ORDERED: MELO15TA28 PO (14:50)
[2020-01-23] MEDS ORDERED: KETOROLAC 30 MG/ML 1ML VIAL IV ONE (15:30)
[2020-01-23] MEDS ORDERED: PROMETHAZINE INJ 25 MG/ML VIAL (J2550) IV ONE (15:30)
[2020-01-23] MEDS ORDERED: DICYCLOMINE 10 MG CAP PO PRN (16:30)
[2020-01-23] MEDS ORDERED: GLUCAGON INJ 1MG VIAL SC PRN (16:30)
[2020-01-23] MEDS ORDERED: GLUCOSE 4GM CHEW TABLET PO PRN (16:30)
[2020-01-23] MEDS ORDERED: DEXTROSE 50% 50 ML SYRINGE IV PRN (16:30)
[2020-01-23] MEDS ORDERED: ONDANSETRON 4MG/2ML VIAL IV PRN (16:30)
[2020-01-23] MEDS ORDERED: methylPREDNISolone INJ 125 MG/2 ML VIAL (J2930) IV ONE (17:00)
[2020-01-23] MEDS: NS 1,000 ML IV SCH (18:43)
[2020-01-23] MEDS: CYANOCOBALAMIN 500 MCG TAB PO SCH (18:43)
[2020-01-23] MEDS: HumaLOG INSULIN (NovoLOG) PER UNIT SC SCH ×3 (18:44→20:55)
--- NOTE | 2020-01-23 18:48 | HPEPDOC ---
General Date of Admission Jan 23, 2020 at 16:18 Date of Service: Jan 23, 2020 Chief Complaint The patient is a 64-year-old female who presented to the hospital with complaints of abdominal pain History of Present Illness Patient is a 64-year-old female with a PMHx of Crohns disease, Hx of Ileus / Ischemic colitis (no surgery) / Diverticulitis, Chronic HTN, NIDDM2, DLP, Obesity, who was presented to the hospital with abdominal pain that started this morning. Patient reported that at 7:00 this morning she began to experience 10/10 burning/aching/sharp abdominal pain across her upper abdomen. Patient denies any radiation. Reports alleviation with medications in the emergency room, no aggravating factors. Patient has had associated nausea and vomiting with greater than 5 episodes. Patient reports her vomitus does not include any blood. Patient denies any constipation, diarrhea, or urinary discomfort. She does report chills but denies any fevers. Patient reports that she last had a flare of her Crohns disease November 05. She follows with Dr. Marroquin as an outpatient for Stelara infusions. Her last infusion was December 07 the next scheduled infusion is for February 01. Patient has not been on any antibiotics and has not had any recent change in her medications. She denies chest pain, palpitation, shortness of breath or cough. Patient reports her appetite is poor and denies any significant changes in her weight. Home Medications Scheduled Amlodipine Besylate (Amlodipine Besylate) 2.5 Mg Tab, 2.5 MG PO DAILY, (Reported ) Atorvastatin Calcium (Atorvastatin Calcium) 10 Mg Tab, 10 MG PO QHS, (Reported) Black Cohosh Root (Black Cohosh) 200 Mg Capsule, 200 MG PO BID, (Reported) Calcium Carbonate/Vitamin D3 (Calcium 600-Vit D3 400 Tablet) 1 Each Tablet, 1 TAB PO BID, (Reported) Cyanocobalamin (Vitamin B-12) (Vitamin B-12) 1,000 Mcg Tab, 1,000 MCG PO DAILY, (Reported) Enalapril Maleate (Enalapril Maleate) 20 Mg Tab, 20 MG PO DAILY, (Reported) Ferrous Sulfate (Ferrous Sulfate) 325 Mg Tab, 325 MG PO BID, (Reported) Gabapentin (Gabapentin) 300 Mg Cap, 300 MG PO TID, (Reported) Hydrochlorothiazide (Hydrochlorothiazide) 25 Mg Tab, 25 MG PO DAILY, (Reported) Magnesium Oxide (Magnesium Oxide) 250 Mg Tab, 250 MG PO DAILY, (Reported) Meloxicam (Meloxicam) 15 Mg Tablet, 15 MG PO DAILY, (Reported) Metformin HCl (Metformin HCl) 1,000 Mg Tab, 1,000 MG PO BIDWM, (Reported) Pantoprazole Sodium (Pantoprazole Sodium) 40 Mg Tab, 40 MG PO DAILY, (Reported) Ustekinumab (Stelara) 90 Mg/1 Ml Syringe, 90 MG SC ASDIRECTED, (Reported) EVERY 8 WEEKS, NEXT INFUSION 02/02/20 Scheduled PRN Budesonide (Budesonide EC) 3 Mg Capdr...er, 3 MG PO DAILY PRN for CROHN'S FLARE- UP, (Reported) Ondansetron HCl (Ondansetron HCl) 4 Mg Tablet, 4 MG PO Q6H PRN for NAUSEA OR VOMITING, (Reported) Allergies Coded Allergies: ciprofloxacin (Verified Allergy, Intermediate, rash, 01/27/19) indomethacin (Verified Allergy, Intermediate, rash, 01/27/19) infliximab (Verified Allergy, Unknown, 104 temperature, 01/23/20) rofecoxib (Verified Allergy, Unknown, CHF, 01/23/20) tomato (Verified Allergy, Unknown, rash, 01/23/20) diazepam (Verified Adverse Reaction, Mild, agitation, 01/27/19) Past Medical History Medical History Crohns disease, Hx of Ileus / Ischemic colitis (no surgery) / Diverticulitis, Chronic HTN, NIDDM2, DLP, Obesity Surgical History Incision and drainage of right breast abscess Family History - Family history of coronary artery disease Social History - Denies the use of alcohol, tobacco or illicit drugs - Denies recent travel or sick contacts - Lives with daughter - 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 Otherwise stated in HPI Vital Signs - Vitals: BP 144/72, HR 104, RR 18, Sat 96%RA, Temp 97.9F - General: Lying in bed, Reports abdominal pain, AAOx3 - HEENT: NC, AT, PERRLA, EOMI - CVS: Tachycardic +S1S2 - Lungs: Fair air entry bilaterally, No appreciable wheezing / rales / rhonchi - Abdomen: Soft, Non-distended, tenderness appreciated across upper left and right quadrants, hypoactive bowel sounds - Extremities: No lower extremity edema, No calf tenderness - Neuro: No focal motor or sensory deficit - Skin: No visible rashes Laboratory Data Labs 24H Laboratory Tests 2 01/23/20 11:45: Immature Granulocyte % (Auto) 0.7, Neutrophils (%) (Auto) 77.2H, Lymphocytes (%) (Auto) 13.3L, Monocytes (%) (Auto) 6.7H, Eosinophils (%) (Auto) 1.4, Basophils (%) (Auto) 0.7, Neutrophils # (Auto) 5.9, Lymphocytes # (Auto) 1.0L, Monocytes # (Auto) 0.5, Eosinophils # (Auto) 0.1, Basophils # (Auto) 0.1, Nucleated Red Blood Cells % (auto) 0.0, Erythrocyte Sedimentation Rate 14, Urine Color STRAW, Urine Appearance CLEAR, Urine pH 7.0, Urine Specific [place] 1.009, Urine P rotein 1+H, Urine Glucose (UA) NEGATIVE, Urine Ketones TRACEH, Urine Blood NEGATIVE, Urine Nitrite NEGATIVE, Urine Bilirubin NEGATIVE, Urine Urobilinogen 0.2, Urine Leukocyte Esterase TRACEH, Urine WBC (Auto) 1, Urine RBC (Auto) 0, Urine Hyaline Casts (Auto) 0, Urine Bacteria (Auto) NEGATIVE, Urine Squamous Epithelial Cells 0, Urine Sperm (Auto) , Lactic Acid Level 5.3*H, Total Bilirubin 0.8, Direct Bilirubin 0.1, Aspartate Amino Transf (AST/SGOT) 49H, Alanine Aminotransferase (ALT/SGPT) 36, Alkaline Phosphatase 107, C-Reactive Protein, Quantitative 0.41H, Total Protein 7.2, Albumin 3.8, Albumin/Globulin Ratio 1.1L, Lipase 104 01/23/20 11:52: POC Glucose (Misc Panel) 181H, POC Sodium (Misc Panel) 136, POC Potassium (Misc Panel) 3.7, POC Chloride (Misc Panel) 96L, POC Total CO2 (Misc Panel) 22.0L, POC Blood Urea Nitrogen (Misc Panel 9, POC Ionized Calcium (Misc Panel) 4.4L, POC Creatinine (Misc Panel) 0.6, POC Hematocrit (Misc Panel) 35.0L 01/23/20 15:18: Lactic Acid Level 4.0*H 01/23/20 16:57: Bedside Glucose (Misc Panel) 167H 01/23/20 17:25: Lactic Acid Followup at 4 Hours 3.2*H CBC/BMP Laboratory Tests 01/23/20 11:45 Microbiology Microbiology 01/23/20 Blood Culture, Received Pending 01/23/20 Blood Culture, Received Pending 01/23/20 Urine Culture, Received Pending Plan / VTE VTE Prophylaxis Ordered?: Yes Plan Plan Abdominal pain / Nausea and Vomiting - likely 2/2 flare of Crohns disease - Patient presented to the emergency room with worsening abdominal pain associ ated with nausea and vomiting - Remains hemodynamically stable and afebrile - Physical reveals diffuse upper abdominal tenderness - No leukocytosis; there does appear to be lactic acidosis that is down trending with IV fluid hydration - ESR and CRP do not appear to be significantly elevated; will continue to trend - Lipase within normal limits - CT abdomen / pelvis 01/22: Inflammatory changes to moderate length small bowel in the right mid abdomen with mild distention and fecalization suggesting acute Crohn's disease. Small amount of free fluid. ? short segment of midsigmoid colitis as well (images 96-109). No bowel obstruction or perforation. No abscess. - Will start loading dose of Solu-Medrol and maintenance thereafter - c/w Clear liquid diet only for now - Will continue with symptomatically relief with Dicylomine and Zofran Crohns disease - See above - Will have outpatient follow-up with gastroenterology Hx of Ileus / Ischemic colitis (no surgery) / Diverticulitis Chronic HTN - BP moderately controlled - Will hold HCTZ - c/w Amlodipine / Enalapril with holding parameters NIDDM2 - Will start ISS Neuropathy - c/w Gabapentin DLP - c/w Atorvastatin Obesity - BMI of 35.8 - Complicating medical care GERD - Will start Protonix DVT prophylaxis - Will start Heparin LIOR SCHAEFFER MD Jan 23, 2020 18:48
[2020-01-23] MEDS: PANTOPRAZOLE 40MG VIAL (C9113 PER 1) IV SCH (20:44)
[2020-01-23] MEDS: HEPARIN SOD (PORCINE) 5000UNITS/ML VIAL (J1644 PER 1000UNITS) SC SCH (20:44)
[2020-01-23] MEDS: FERROUS SULFATE 325MG TAB PO SCH (20:44)
[2020-01-23] MEDS: CALCIUM/VITAMIN D 500 MG TAB PO SCH (20:45)
[2020-01-23] MEDS: GABAPENTIN 300 MG CAP PO SCH (20:45)
[2020-01-23] MEDS ORDERED: ATORVASTATIN 10 MG TAB PO SCH (21:00)
[2020-01-23 22:00] VITALS: BP 132/72
[2020-01-24] MEDS: NS 1,000 ML IV SCH ×2 (00:59→07:29)
[2020-01-24] MEDS ORDERED: methylPREDNISolone INJ 125 MG/2 ML VIAL (J2930) IV SCH (04:00)
[2020-01-24] MEDS: HEPARIN SOD (PORCINE) 5000UNITS/ML VIAL (J1644 PER 1000UNITS) SC SCH ×2 (05:43→20:39)
[2020-01-24 06:00] VITALS: BP 138/76
[2020-01-24 06:11] LABS: BASO % 0.2 % (0.0-1.0); HEMATOCRIT 30.4 % (36.0-47.0); HEMOGLOBIN 10.1 g/dl (12.0-15.5); LYMPH # 0.8 10^3/uL (1.5-5.0); LYMPH % 9.2 % (24.0-44.0); MEAN CORPUSCULAR HGB CONC 33.2 g/dl (32.0-36.5); MEAN CORPUSCULAR VOLUME 93.3 fl (80.0-96.0); MONO # 0.1 10^3/uL (0.0-0.8); MONO % 0.8 % (0.0-5.0); NEUTROPHILS # 7.3 10^3/uL (1.5-8.5); NEUTROPHILS % 88.7 % (36.0-66.0); PLATELET COUNT, AUTOMATED 246 10^3/uL (150-450); RED BLOOD COUNT 3.26 10^6/uL (4.00-5.40); WHITE BLOOD COUNT 8.3 10^3/uL (4.0-10.0)
[2020-01-24 06:34] LABS: BLOOD UREA NITROGEN 10 MG/DL (7-18); C REACTIVE PROTEIN QUANTITATIV 0.52 MG/DL (0.00-0.30); CARBON DIOXIDE LEVEL 25 MEQ/L (21-32); CHLORIDE LEVEL 105 MEQ/L (98-107); CREATININE FOR GFR 0.73 MG/DL (0.55-1.30); GLOMERULAR FILTRATION RATE > 60.0 (>45); GLUCOSE, FASTING 275 MG/DL (70-100); MAGNESIUM LEVEL 1.5 MG/DL (1.8-2.4); POTASSIUM SERUM 4.1 MEQ/L (3.5-5.1); SODIUM LEVEL 139 MEQ/L (136-145)
[2020-01-24 07:57] LABS: ERYTHROCYTE SEDIMENTATION RATE 12 mm/hr (0-30)
[2020-01-24] MEDS: HumaLOG INSULIN (NovoLOG) PER UNIT SC SCH ×4 (09:06→20:39)
[2020-01-24] MEDS: FERROUS SULFATE 325MG TAB PO SCH (09:07)
[2020-01-24] MEDS: CALCIUM/VITAMIN D 500 MG TAB PO SCH (09:07)
[2020-01-24] MEDS: GABAPENTIN 300 MG CAP PO SCH ×3 (09:07→20:38)
[2020-01-24] MEDS: CYANOCOBALAMIN 500 MCG TAB PO SCH (09:07)
[2020-01-24] MEDS: ACETAMINOPHEN TAB 650MG DOSE (2X325MG) PO PRN (09:07)
[2020-01-24] MEDS: ENALAPRIL MALEATE 10 MG TAB PO SCH (09:09)
[2020-01-24] MEDS: PANTOPRAZOLE 40MG VIAL (C9113 PER 1) IV SCH ×2 (09:09→20:38)
[2020-01-24] MEDS: MAG SULF 1GM/100ML (MAG RUN) 1 GM in IV 1 EA IV SCH ×2 (11:04→12:21)
[2020-01-24] MEDS ORDERED: PROCHLORPERAZINE 10MG/2ML VIAL (J0780 PER 1) IV PRN (11:45)
[2020-01-24] MEDS ORDERED: MORPHINE 2 MG/ML 1ML VIAL (J2270) IV PRN (11:45)
--- NOTE | 2020-01-24 11:51 | IPNPDOC ---
Text Note Date of Service The patient was seen on 01/24/20. NOTE Subjective: Continues to have abdominal pain all over, along with nausea, no v omiting overnight or this am. No diarrhea. Complains of swelling of upper extremities and fingers and face. Will stop IVF. Physical Exam: - Vitals: As below - General: Laying in bed, Reports abdominal pain, AAOx3, obese - HEENT: NC, AT, PERRLA, EOMI - CVS: Normal eli, regular rhythm, +S1S2, no rub murmur or gallop - Lungs: Fair air entry bilaterally, No appreciable wheezing / rales / rhonchi - Abdomen: Soft, Non-distended, tenderness appreciated across upper left and right quadrants, hypoactive bowel sounds - Extremities: No lower extremity edema, No calf tenderness - Neuro: No focal motor or sensory deficit - Skin: No visible rashes Labs and radiology: Reviewed. Assessment and Plan: Patient is a 64-year-old female with a PMHx of Crohns disease, Hx of Ileus / Ischemic colitis (no surgery) / Diverticulitis, Chronic HTN, NIDDM2, DLP, Obesity, who was presented to the hospital with abdominal pain for 1 day associated with intractable vomiting without hemetemesis and no diarrhea. Patient reports that she last had a flare of her Crohns disease November 05. She follows with Dr. Marroquin as an outpatient for Stelara infusions. Her last infusion was December 07 the next scheduled infusion is for February 01. Patient has not been on any antibiotics and has not had any recent change in her medications. Abdominal pain / Nausea and Vomiting likely 2/2 flare of Crohns disease ESR and CRP do not appear to be significantly elevated; CT abdomen / pelvis 01/22: Inflammatory changes to moderate length small bowel in the right mid abdomen with mild distention and fecalization suggesting acute Crohn's disease. Small amount of free fluid. ? short segment of midsigmoid colitis as well (images 96-109). No bowel obstruction or perforation. No abscess. continue solumedrol c/w Clear liquid diet only for now Will continue with symptomatically relief with Dicylomine and Zofran, toradol, morphine, compazine prn. Crohns disease See above Will have outpatient follow-up with gastroenterology Hx of Ileus / Ischemic colitis (no surgery) / Diverticulitis Chronic HTN BP moderately controlled c/w Amlodipine / Enalapril with holding parameters Hold HCTZ NIDDM2 Expect sugars to rise with steroids levemir 10 u daily lispro sliding scale Neuropathy c/w Gabapentin DLP hold for now Obesity BMI of 35.8 Complicating medical care GERD Protonix Iron rebecca d Vit B12 def will hold supplements for now. DVT prophylaxis Heparin VS,Fishbone, I+O VS, Fishbone, I+O Laboratory Tests 01/23/20 11:45 01/24/20 05:58 Vital Signs Date Time Temp Pulse Resp B/P (MAP) Pulse Ox O2 Delivery O2 Flow Rate FiO2 01/24/20 09:09 89 140/77 01/24/20 06:00 98.7 17 96 Room Air I&O- Last 24 Hours up to 6 AM 01/24/20 06:00 Intake Total 4250 ml Output Total 475 ml Balance 3775 ml DORIAN FLORES MD Jan 24, 2020 11:51
[2020-01-24] MEDS: LEVEMIR (INSULIN DETEMIR) 1 UNITS/0.01ML SC SCH (12:21)
[2020-01-24] MEDS: methylPREDNISolone INJ 40 MG/1 ML VIAL (J2920) IV SCH ×2 (12:22→20:38)
[2020-01-24] MEDS: ONDANSETRON 4MG/2ML VIAL IV SCH ×2 (12:22→17:25)
[2020-01-24] MEDS: KETOROLAC 30 MG/ML 1ML VIAL IV PRN (12:38)
[2020-01-24 14:00] VITALS: BP 139/76
--- NOTE | 2020-01-24 16:28 | REP ---
REASON FOR EXAM: Abdominal pain. Multiple priors reviewed, the latest 11/06/2019. CONTRAST: 100 mL Isovue-370. Preliminary report given by Dr. Ugarte. There is no significant change in appearance of the lung bases. There are no pleural or pericardial effusions. Stable fibrotic and/or chronic subsegmental atelectatic changes are noted. The liver, gallbladder, spleen, pancreas, adrenal glands, and kidneys are unchanged. Areas of left renal cortical scarring noted, status quo, with a small unchanged left renal cyst. The abdominal aorta and para-aortic regions are unchanged and again seen to be within normal limits. There is a small amount of free fluid in the right paracolic gutter, increased slightly from the prior exam. No free air is seen in the abdomen or pelvis. In the right mid and lower quadrant, there are a few mildly dilated wall enhancing small bowel loops representing a change from the prior exam. There is unchanged descending colon and sigmoid colon diverticulosis. There is no evidence of intestinal obstruction. There is no intra-abdominal or intrapelvic mass or adenopathy. The osseous structures are stable and intact. Chronic degenerative changes are noted, status quo. IMPRESSION: Findings in the abdomen on the right, as described above, likely consistent with Crohn's enteritis. This should be correlated clinically with appropriate followup. Other findings and chronic changes, as described above. Electronically Signed by Franklin Orlando DO 01/24/2020 05:06 P
--- NOTE | 2020-01-24 17:21 | REP ---
REASON FOR EXAM: Abdominal pain. Latest prior for comparison is 08/02/2019. Patient had a CT of the abdomen and pelvis on 01/23/2020. There is residual contrast material seen in the colon from the oral bowel preparatory contrast given for the CT scan. The intestinal gas pattern is nonspecific. There is no evidence of free intraperitoneal air or intestinal obstruction. The osseous structures are within normal limits for the patient's age. IMPRESSION: Findings as described above. No evidence of acute disease. Electronically Signed by Franklin Orlando DO 01/24/2020 07:11 P
[2020-01-24 22:00] VITALS: BP 135/75
[2020-01-25] MEDS: ONDANSETRON 4MG/2ML VIAL IV SCH ×5 (00:16→23:24)
[2020-01-25] MEDS: KETOROLAC 30 MG/ML 1ML VIAL IV PRN ×3 (01:08→17:07)
[2020-01-25 04:00] VITALS: BP 160/84
[2020-01-25] MEDS: methylPREDNISolone INJ 40 MG/1 ML VIAL (J2920) IV SCH ×2 (04:08→16:12)
[2020-01-25] MEDS: ACETAMINOPHEN TAB 650MG DOSE (2X325MG) PO PRN (05:52)
[2020-01-25 07:26] LABS: BASO % 0.1 % (0.0-1.0); HEMATOCRIT 28.8 % (36.0-47.0); HEMOGLOBIN 9.6 g/dl (12.0-15.5); LYMPH # 0.8 10^3/uL (1.5-5.0); LYMPH % 7.7 % (24.0-44.0); MEAN CORPUSCULAR HEMOGLOBIN 31.3 pg (27.0-33.0); MEAN CORPUSCULAR HGB CONC 33.3 g/dl (32.0-36.5); MEAN CORPUSCULAR VOLUME 93.8 fl (80.0-96.0); MONO # 0.3 10^3/uL (0.0-0.8); MONO % 2.5 % (0.0-5.0); NEUTROPHILS % 88.8 % (36.0-66.0); PLATELET COUNT, AUTOMATED 249 10^3/uL (150-450); RED BLOOD COUNT 3.07 10^6/uL (4.00-5.40); WHITE BLOOD COUNT 10.2 10^3/uL (4.0-10.0)
[2020-01-25 07:49] LABS: BLOOD UREA NITROGEN 15 MG/DL (7-18); CALCIUM LEVEL 7.9 MG/DL (8.8-10.2); CARBON DIOXIDE LEVEL 24 MEQ/L (21-32); CHLORIDE LEVEL 107 MEQ/L (98-107); CREATININE FOR GFR 0.69 MG/DL (0.55-1.30); GLOMERULAR FILTRATION RATE > 60.0 (>45); GLUCOSE, FASTING 245 MG/DL (70-100); SODIUM LEVEL 138 MEQ/L (136-145)
[2020-01-25] MEDS: LEVEMIR (INSULIN DETEMIR) 1 UNITS/0.01ML SC SCH (08:28)
[2020-01-25] MEDS: HumaLOG INSULIN (NovoLOG) PER UNIT SC SCH ×4 (08:28→21:00)
[2020-01-25] MEDS: PANTOPRAZOLE 40MG VIAL (C9113 PER 1) IV SCH ×2 (08:29→22:15)
[2020-01-25] MEDS: GABAPENTIN 300 MG CAP PO SCH ×3 (08:29→22:15)
[2020-01-25] MEDS: HEPARIN SOD (PORCINE) 5000UNITS/ML VIAL (J1644 PER 1000UNITS) SC SCH ×2 (08:29→22:15)
[2020-01-25 08:31] VITALS: BP 137/75
[2020-01-25] MEDS: ENALAPRIL MALEATE 10 MG TAB PO SCH (08:31)
[2020-01-25] MEDS ORDERED: GLIP5TAB8 PO (10:51)
--- NOTE | 2020-01-25 10:51 | IPNPDOC ---
Text Note Date of Service The patient was seen on 01/25/20. NOTE Subjective: Continues to have abdominal pain on the right only no nausea, no a ppetite yet, No bowel movements but passing a lot of flatus. No fever or chills. Physical Exam: - Vitals: As below - General: Laying in bed, Reports abdominal pain, AAOx3, obese - HEENT: NC, AT, PERRLA, EOMI - CVS: Normal eli, regular rhythm, +S1S2, no rub murmur or gallop - Lungs: Fair air entry bilaterally, No appreciable wheezing / rales / rhonchi - Abdomen: Non-distended, tenderness appreciated across upper right quadrant, hypoactive bowel sounds, right upper quadrant a little tense compared to left. - Extremities: No lower extremity edema, No calf tenderness - Neuro: No focal motor or sensory deficit - Skin: No visible rashes Labs and radiology: Reviewed. Assessment and Plan: Patient is a 64-year-old female with a PMHx of Crohns disease, Hx of Ileus / Ischemic colitis (no surgery) / Diverticulitis, Chronic HTN, NIDDM2, DLP, Obesity, who was presented to the hospital with abdominal pain for 1 day associated with intractable vomiting without hemetemesis and no diarrhea. Patient reports that she last had a flare of her Crohns disease November 05. She follows with Dr. Marroquin as an outpatient for Stelara infusions. Her last infusion was December 07 the next scheduled infusion is for February 01. Patient has not been on any antibiotics and has not had any recent change in her medications. Abdominal pain / Nausea and Vomiting likely 2/2 flare of Crohns disease ESR and CRP do not appear to be significantly elevated; CT abdomen / pelvis 01/22: Inflammatory changes to moderate length small bowel in the right mid abdomen with mild distention and fecalization suggesting acute Crohn's disease. Small amount of free fluid. ? short segment of midsigmoid colitis as well (images 96-109). No bowel obstruction or perforation. No abscess. continue solumedrol for now Will need to go home with steroid taper. full liquids. Will continue with symptomatically relief with Dicylomine and Zofran, toradol, morphine, compazine prn. Crohns disease See above Will have outpatient follow-up with gastroenterology Hx of Ileus / Ischemic colitis (no surgery) / Diverticulitis Chronic HTN BP moderately controlled c/w Amlodipine / Enalapril with holding parameters Hold HCTZ NIDDM2 Expect sugars to rise with steroids sugars uncontrolled only on metformin 1000 bid at home. Never used insulin plan to dc patient with metformin 1000 tid and glipizide 5 bid while she remains of steroids. Then can go back to usual dosage once off steroids. levemir and lispro in hospital only. Neuropathy c/w Gabapentin DLP hold for now Obesity BMI of 35.8 Complicating medical care GERD Protonix Iron rebecca d Vit B12 def will hold supplements for now. DVT prophylaxis Heparin VS,Fishbone, I+O VS, Fishbone, I+O Laboratory Tests 01/25/20 06:52 Vital Signs Date Time Temp Pulse Resp B/P (MAP) Pulse Ox O2 Delivery O2 Flow Rate FiO2 01/25/20 08:31 137/75 01/25/20 08:31 84 01/25/20 04:00 98.0 18 95 01/24/20 14:00 Room Air I&O- Last 24 Hours up to 6 AM 01/25/20 06:00 Intake Total 1845 ml Output Total 1950 ml Balance -105 ml DORIAN FLORES MD Jan 25, 2020 10:51
[2020-01-25 14:00] VITALS: BP 143/79
[2020-01-25] MEDS: glipiZIDE (GLUCOTROL) 5 MG TAB PO SCH (17:06)
[2020-01-25 22:00] VITALS: BP 141/80
[2020-01-26] MEDS: methylPREDNISolone INJ 40 MG/1 ML VIAL (J2920) IV SCH (05:01)
[2020-01-26] MEDS: KETOROLAC 30 MG/ML 1ML VIAL IV PRN ×2 (05:02→12:05)
[2020-01-26] MEDS: ONDANSETRON 4MG/2ML VIAL IV SCH ×2 (05:50→12:04)
[2020-01-26 06:00] VITALS: BP 135/71
[2020-01-26 07:26] LABS: HEMATOCRIT 29.6 % (36.0-47.0); HEMOGLOBIN 9.6 g/dl (12.0-15.5); LYMPH % 12.8 % (24.0-44.0); MEAN CORPUSCULAR HGB CONC 32.4 g/dl (32.0-36.5); MEAN CORPUSCULAR VOLUME 95.5 fl (80.0-96.0); MONO # 0.4 10^3/uL (0.0-0.8); NEUTROPHILS % 81.4 % (36.0-66.0); PLATELET COUNT, AUTOMATED 236 10^3/uL (150-450); WHITE BLOOD COUNT 7.4 10^3/uL (4.0-10.0)
[2020-01-26 07:45] LABS: BLOOD UREA NITROGEN 22 MG/DL (7-18); CALCIUM LEVEL 7.7 MG/DL (8.8-10.2); CARBON DIOXIDE LEVEL 25 MEQ/L (21-32); CHLORIDE LEVEL 110 MEQ/L (98-107); CREATININE FOR GFR 0.78 MG/DL (0.55-1.30); GLOMERULAR FILTRATION RATE > 60.0 (>45); GLUCOSE, FASTING 153 MG/DL (70-100); POTASSIUM SERUM 4.2 MEQ/L (3.5-5.1); SODIUM LEVEL 142 MEQ/L (136-145)
[2020-01-26] MEDS ORDERED: LEVEMIR (INSULIN DETEMIR) 1 UNITS/0.01ML SC SCH (09:00)
[2020-01-26] MEDS: PANTOPRAZOLE 40MG VIAL (C9113 PER 1) IV SCH (09:01)
[2020-01-26] MEDS: ENALAPRIL MALEATE 10 MG TAB PO SCH (09:02)
[2020-01-26] MEDS: GABAPENTIN 300 MG CAP PO SCH (09:03)
[2020-01-26] MEDS: HEPARIN SOD (PORCINE) 5000UNITS/ML VIAL (J1644 PER 1000UNITS) SC SCH (09:03)
[2020-01-26] MEDS: HumaLOG INSULIN (NovoLOG) PER UNIT SC SCH ×2 (09:03→12:00)
[2020-01-26] MEDS: glipiZIDE (GLUCOTROL) 5 MG TAB PO SCH (10:14)
[2020-01-26] MEDS ORDERED: DICY1CAP8 PO (10:17)
[2020-01-26] MEDS ORDERED: PRED10TA2 PO (10:17)
--- NOTE | 2020-01-26 12:58 | DS.PDOC ---
Discharge Summary General Date of Admission Jan 23, 2020 at 16:18 Date of Discharge 01/26/20 Discharge Summary PROCEDURES PERFORMED DURING STAY: None. ADMITTING DIAGNOSES: 1. Exacerbation of Crohn's disease. DISCHARGE DIAGNOSES: 1. Exacerbation of Crohn's disease, hyperglycemia, diabetes mellitus type 2, hyperlipidemia, obesity. COMPLICATIONS/CHIEF COMPLAINT: Exacerbation Of Crohns Disease. HISTORY OF PRESENT ILLNESS: Patient is a 64-year-old female with a PMHx of Crohns disease, Hx of Ileus / Ischemic colitis (no surgery) / Diverticulitis, Chronic HTN, NIDDM2, DLP, Obesity, who was presented to the hospital with abdominal pain that started this morning. Patient reported that at 7:00 this morning she began to experience 10/10 burning/aching/sharp abdominal pain across her upper abdomen. Patient denies any radiation. Reports alleviation with medications in the emergency room, no a ggravating factors. Patient has had associated nausea and vomiting with greater than 5 episodes. Patient reports her vomitus does not include any blood. Patient denies any constipation, diarrhea, or urinary discomfort. She does report chills but denies any fevers. Patient reports that she last had a flare of her Crohns disease November 05. She follows with Dr. Marroquin as an outpatient for Stelara infusions. Her last infusion was December 07 the next scheduled infusion is for February 01. Patient has not been on any antibiotics and has not had any recent change in her medications. She denies chest pain, palpitation, shortness of breath or cough. Patient reports her appetite is poor and denies any significant changes in her weight.. HOSPITAL COURSE: Patient is a 64-year-old female with a PMHx of Crohns disease, Hx of Ileus / Ischemic colitis (no surgery) / Diverticulitis, Chronic HTN, NIDDM2, DLP, Obesity, who was presented to the hospital with abdominal pain for 1 day associated with intractable vomiting without hemetemesis and no diarrhea. Patient reports that she last had a flare of her Crohns disease November 05. She follows with Dr. Marroquin as an outpatient for Stelara infusions. Her last infusion was December 07 the next scheduled infusion is for February 01. Patient has not been on any antibiotics and has not had any recent change in her medications. Abdominal pain / Nausea and Vomiting likely 2/2 flare of Crohns disease ESR and CRP do not appear to be significantly elevated; CT abdomen / pelvis 01/22: Inflammatory changes to moderate length small bowel in the right mid abdomen with mild distention and fecalization suggesting acute Crohn's disease. Small amount of free fluid. ? short segment of midsigmoid colitis as well (images 96-109). No bowel obstruction or perforation. No abscess. continue solumedrol for now Patient will be discharged home on tapering prednisone She tolerated regular diet before discharge. Today Continue all other when necessary meds along with also discharge her on dicyclomine as outpatient. 5. Abdominal pain Follow-up with Dr. Smith in one week Chronic HTN BP moderately controlled Patient will be discharged home on all her home meds NIDDM2 Expect sugars to rise with steroids Conde DC metformin but continue glipizide 5 mg by mouth daily. 4. Hyperglycemia secondary to steroids Further follow with PCP in one week for further adjustment in her meds. DISCHARGE MEDICATIONS: Please see below. ALLERGIES: Please see below. PHYSICAL EXAMINATION ON DISCHARGE: VITAL SIGNS: Please see below. GENERAL: Within normal limit HEENT: PERRLA. Extraocular muscles intact NECK: Supple. Negative JVD, negative lymphadenopathy CARDIOVASCULAR EXAMINATION: S1, S2, regular RESPIRATORY EXAMINATION: Clear to A&P ABDOMINAL EXAMINATION: Benign EXTREMITIES: No clubbing, cyanosis, edema SKIN: Normal NEUROLOGICAL EXAMINATION: . No focal motor sensory deficit PSYCHIATRIC EXAMINATION: Normal LABORATORY DATA: Please see below. IMAGING: CT abdomen:Findings in the abdomen on the right, as described above, likely consistent with Crohn's enteritis. This should be correlated clinically with appropriate followup. PROGNOSIS: Good ACTIVITY: As tolerated. DIET: As tolerated DISCHARGE PLAN: As per discharge planning DISPOSITION: 01 Home, Self-Care. DISCHARGE INSTRUCTIONS: 1. As per discharge instructions. ITEMS TO FOLLOWUP ON ON OUTPATIENT: 1. Follow with PCP/GI in one week. DISCHARGE CONDITION: Stable. TIME SPENT ON DISCHARGE: 38 minutes. Vital Signs/I&Os Vital Signs Date Time Temp Pulse Resp B/P (MAP) Pulse Ox O2 Delivery O2 Flow Rate FiO2 01/26/20 06:00 98.0 59 18 135/71 (92) 96 01/25/20 23:35 Room Air I&O- Last 24 Hours up to 6 AM 01/26/20 05:59 Intake Total 1980 ml Output Total 250 ml Balance 1730 ml Laboratory Data Labs 24H Laboratory Tests 2 01/25/20 16:35: Bedside Glucose (Misc Panel) 198H 01/25/20 20:34: Bedside Glucose (Misc Panel) 235H 01/26/20 06:59: Anion Gap 7L, Glomerular Filtration Rate > 60.0, Calcium Level 7.7L, Magnesium Level 2.0 01/26/20 07:00: Immature Granulocyte % (Auto) 0.8, Neutrophils (%) (Auto) 81.4H, Lymphocytes (%) (Auto) 12.8L, Monocytes (%) (Auto) 5.0, Eosinophils (%) (Auto) 0.0, Basophils (%) (Auto) 0.0, Neutrophils # (Auto) 6.0, Lymphocytes # (Auto) 1.0L, Monocytes # (Auto) 0.4, Eosinophils # (Auto) 0.0, Basophils # (Auto) 0.0, Nucleated Red Blood Cells % (auto) 0.0 01/26/20 11:23: Bedside Glucose (Misc Panel) 251H CBC/BMP Laboratory Tests 01/26/20 06:59 01/26/20 07:00 FSBS Laboratory Tests Test 01/25/20 16:35 01/25/20 20:34 01/26/20 11:23 Range/Units Bedside Glucose (Misc Panel) 198 235 251 80-115 MG/DL Microbiology Microbiology 01/23/20 Blood Culture - Preliminary, Resulted No Growth after 48 hours. All Specime... 01/23/20 Blood Culture - Preliminary, Resulted No Growth after 48 hours. All Specime... 01/23/20 Urine Culture - Final, Complete Discharge Medications Scheduled Amlodipine Besylate (Amlodipine Besylate) 2.5 Mg Tab, 2.5 MG PO DAILY, ( Reported) Atorvastatin Calcium (Atorvastatin Calcium) 10 Mg Tab, 10 MG PO QHS, (Reported) Black Cohosh Root (Black Cohosh) 200 Mg Capsule, 200 MG PO BID, (Reported) Calcium Carbonate/Vitamin D3 (Calcium 600-Vit D3 400 Tablet) 1 Each Tablet, 1 TAB PO BID, (Reported) Cyanocobalamin (Vitamin B-12) (Vitamin B-12) 1,000 Mcg Tab, 1,000 MCG PO DAILY, (Reported) Enalapril Maleate (Enalapril Maleate) 20 Mg Tab, 20 MG PO DAILY, (Reported) Ferrous Sulfate (Ferrous Sulfate) 325 Mg Tab, 325 MG PO BID, (Reported) Gabapentin (Gabapentin) 300 Mg Cap, 300 MG PO TID, (Reported) Glipizide (Glipizide) 5 Mg Tablet, 1 TAB PO BID Hydrochlorothiazide (Hydrochlorothiazide) 25 Mg Tab, 25 MG PO DAILY, (Reported) Magnesium Oxide (Magnesium Oxide) 250 Mg Tab, 250 MG PO DAILY, (Reported) Meloxicam (Meloxicam) 15 Mg Tablet, 15 MG PO DAILY, (Reported) Pantoprazole Sodium (Pantoprazole Sodium) 40 Mg Tab, 40 MG PO DAILY, (Reported) Prednisone (Prednisone) 10 Mg Tablet, 10 MG PO TAPER Take 4 tabs daily x 3 days, then 3 tabs daily x 3 days, then 2 tabs daily x 3 days, then 1 tab daily x 3 days and stop Ustekinumab (Stelara) 90 Mg/1 Ml Syringe, 90 MG SC ASDIRECTED, (Reported) EVERY 8 WEEKS, NEXT INFUSION 02/02/20 Scheduled PRN Budesonide (Budesonide EC) 3 Mg Capdr...er, 3 MG PO DAILY PRN for CROHN'S FLARE- UP, (Reported) Dicyclomine HCl (Dicyclomine HCl) 10 Mg Capsule, 10 MG PO Q8HP PRN for abdominal pain Ondansetron HCl (Ondansetron HCl) 4 Mg Tablet, 4 MG PO Q6H PRN for NAUSEA OR V OMITING, (Reported) Allergies Coded Allergies: ciprofloxacin (Verified Allergy, Intermediate, rash, 01/27/19) indomethacin (Verified Allergy, Intermediate, rash, 01/27/19) infliximab (Verified Allergy, Unknown, 104 temperature, 01/23/20) rofecoxib (Verified Allergy, Unknown, CHF, 01/23/20) tomato (Verified Allergy, Unknown, rash, 01/23/20) diazepam (Verified Adverse Reaction, Mild, agitation, 01/27/19) DORIS HUTCHINSON MD Jan 26, 2020 12:58
== END 2020-01-26 12:47 | disposition home or self-care (01) | DRG 386 ==
LOC: M ED 11:25 → M ED INP 16:18 → ENRESERV 16:32 → M MSPAV 17:12
PROVIDERS: ADMIT Internal Medicine; ATTEND Internal Medicine
DX: K50.90 Crohn's disease, unspecified, without complications (principal); E87.2 Acidosis; I10 Essential (primary) hypertension; E11.65 Type 2 diabetes mellitus with hyperglycemia; E66.9 Obesity, unspecified; E78.5 Hyperlipidemia, unspecified; K57.30 Diverticulosis of large intestine without perforation or abscess without bleeding; Z79.899 Other long term (current) drug therapy; Z88.8 Allergy status to other drugs, medicaments and biological substances; Z91.018 Allergy to other foods; E11.40 Type 2 diabetes mellitus with diabetic neuropathy, unspecified; Z68.35 Body mass index [BMI] 35.0-35.9, adult; K21.9 Gastro-esophageal reflux disease without esophagitis

== ENCOUNTER → 2020-02-23 | Outpatient (CLI) | payer MEDICARE ==
[~2020-02-23] MED LIST changes: -ASPI81TA85 PO; +ASPI81TA86 PO; +DICY1CAP8 PO; +ENAL-36 PO; -ENAL10TA2 PO; -ENAL20TA PO; +ENAL20TA11 PO; +GLIP5TAB8 PO; +HYDR12.55 PO; +METF10004; +METO1TAB87; +NORC1TAB7 PO; -PANT20TA2 PO; +PANT20TA6 PO; +PANT40TA29 PO; -PANT40TA3 PO
[2020-02-23 10:54] LABS: BASO % 0.5 % (0.0-1.0); EOS # 0.2 10^3/uL (0.0-0.5); EOS % 2.9 % (0.0-3.0); HEMATOCRIT 32.1 % (36.0-47.0); HEMOGLOBIN 10.5 g/dl (12.0-15.5); LYMPH # 1.2 10^3/uL (1.5-5.0); LYMPH % 20.8 % (24.0-44.0); MEAN CORPUSCULAR HEMOGLOBIN 30.6 pg (27.0-33.0); MEAN CORPUSCULAR HGB CONC 32.7 g/dl (32.0-36.5); MEAN CORPUSCULAR VOLUME 93.6 fl (80.0-96.0); MONO # 0.5 10^3/uL (0.0-0.8); MONO % 8.4 % (0.0-5.0); NEUTROPHILS % 66.7 % (36.0-66.0); PLATELET COUNT, AUTOMATED 258 10^3/uL (150-450); RED BLOOD COUNT 3.43 10^6/uL (4.00-5.40)
[2020-02-23 11:25] LABS: ALBUMIN 3.8 GM/DL (3.2-5.2); ALT/SGPT 28 U/L (12-78); BILIRUBIN,TOTAL 0.7 MG/DL (0.2-1.0); BLOOD UREA NITROGEN 9 MG/DL (7-18); CALCIUM LEVEL 9.3 MG/DL (8.8-10.2); CARBON DIOXIDE LEVEL 29 MEQ/L (21-32); CHLORIDE LEVEL 100 MEQ/L (98-107); CHOLESTEROL LEVEL 145 MG/DL (<200); CHOLESTEROL RISK RATIO 4.264 (<5); GLOMERULAR FILTRATION RATE > 60.0 (>45); GLUCOSE, FASTING 145 MG/DL (70-100); HDL CHOLESTEROL 34 MG/DL (>40); LDL CHOLESTEROL 68 MG/DL (<100); NON-HDL-C 111 MG/DL; POTASSIUM SERUM 4.2 MEQ/L (3.5-5.1); SODIUM LEVEL 137 MEQ/L (136-145); TOTAL PROTEIN 6.7 GM/DL (6.4-8.2); TRIGLYCERIDES LEVEL 214 MG/DL (<150)
[2020-02-23 11:26] LABS: CREATININE, URINE 38.7 MG/DL; MALB URINE SIEMENS 42.8 MG/L; MAU/CREAT RATIO 110.5 MCG/MG (0.0-30.0)
[2020-02-23 13:05] LABS: HEMOGLOBIN A1c 8.3 %
== END ==
LOC: M LAB 10:02
PROVIDERS: ATTEND Family Medicine
DX: E11.69 Type 2 diabetes mellitus with other specified complication (principal)

== ENCOUNTER → 2020-05-19 | Outpatient (CLI) | payer MEDICARE | LOC: M LABSMTC 14:02 | PROVIDERS: ATTEND Internal Medicine | DX: Z20.828 Contact with and (suspected) exposure to other viral communicable diseases (principal) | CPT/HCPCS: C9803; U0003 ==

== ENCOUNTER → 2020-05-26 | Outpatient (CLI) | payer MEDICARE ==
[2020-05-26 15:42] LABS: BASO % 0.4 % (0.0-1.0); EOS # 0.1 10^3/uL (0.0-0.5); EOS % 1.5 % (0.0-3.0); HEMATOCRIT 30.4 % (36.0-47.0); HEMOGLOBIN 9.8 g/dl (12.0-15.5); LYMPH # 1.4 10^3/uL (1.5-5.0); LYMPH % 21.1 % (24.0-44.0); MEAN CORPUSCULAR HEMOGLOBIN 30.1 pg (27.0-33.0); MEAN CORPUSCULAR HGB CONC 32.2 g/dl (32.0-36.5); MEAN CORPUSCULAR VOLUME 93.3 fl (80.0-96.0); MONO # 0.6 10^3/uL (0.0-0.8); MONO % 8.7 % (0.0-5.0); NEUTROPHILS # 4.6 10^3/uL (1.5-8.5); NEUTROPHILS % 67.7 % (36.0-66.0); PLATELET COUNT, AUTOMATED 196 10^3/uL (150-450); RED BLOOD COUNT 3.26 10^6/uL (4.00-5.40); WHITE BLOOD COUNT 6.8 10^3/uL (4.0-10.0)
[2020-05-26 15:55] LABS: HEMOGLOBIN A1c 7.4 %
== END ==
LOC: M LAB 14:49
PROVIDERS: ATTEND Physician Assistant Medical
DX: E11.69 Type 2 diabetes mellitus with other specified complication (principal); K50.918 Crohn's disease, unspecified, with other complication

== ENCOUNTER 2020-05-28 17:50 | Emergency (ER) | payer MEDICARE ==
[~2020-05-28] VITALS: Ht 144.8 cm; Wt 76.3 kg
[~2020-05-28 17:50] MED LIST changes: -HYDR12.55 PO; -METF10004; -METO1TAB87; -NORC1TAB7 PO
[2020-05-28] MEDS ORDERED: METO1TAB87 (18:02)
[2020-05-28] MEDS ORDERED: METF10004 (18:02)
[2020-05-28] MEDS ORDERED: HYDR12.55 PO (18:02)
[2020-05-28] MEDS ORDERED: PANTOPRAZOLE 40MG VIAL (C9113 PER 1) IV ONE (18:15)
[2020-05-28] MEDS ORDERED: ONDANSETRON 4MG/2ML VIAL IV ONE (18:15)
[2020-05-28] MEDS ORDERED: KETOROLAC 30 MG/ML 1ML VIAL IV ONE (18:15)
[2020-05-28] MEDS ORDERED: NS 1,000 ML IV SCH (18:15)
[2020-05-28 18:29] LABS: BASO % 0.4 % (0.0-1.0); EOS # 0.1 10^3/uL (0.0-0.5); EOS % 1.3 % (0.0-3.0); HEMATOCRIT 32.1 % (36.0-47.0); HEMOGLOBIN 10.7 g/dl (12.0-15.5); LYMPH % 12.9 % (24.0-44.0); MEAN CORPUSCULAR HEMOGLOBIN 30.1 pg (27.0-33.0); MEAN CORPUSCULAR HGB CONC 33.3 g/dl (32.0-36.5); MEAN CORPUSCULAR VOLUME 90.4 fl (80.0-96.0); MONO # 0.4 10^3/uL (0.0-0.8); NEUTROPHILS # 6.1 10^3/uL (1.5-8.5); PLATELET COUNT, AUTOMATED 260 10^3/uL (150-450); RED BLOOD COUNT 3.55 10^6/uL (4.00-5.40); WHITE BLOOD COUNT 7.6 10^3/uL (4.0-10.0)
[2020-05-28] MEDS ORDERED: MORPHINE 2 MG/ML 1ML VIAL (J2270) IV ONE ×2 (18:30→19:45)
[2020-05-28] MEDS ORDERED: methylPREDNISolone 125MG 2ML VIAL IV ONE (18:30)
[2020-05-28 18:39] LABS: INR 0.88; PROTHROMBIN TIME 12.1 SECONDS (12.5-14.3)
[2020-05-28 18:58] LABS: ALBUMIN 3.7 GM/DL (3.2-5.2); ALT/SGPT 25 U/L (12-78); BILIRUBIN,DIRECT 0.2 MG/DL (0.0-0.2); BILIRUBIN,TOTAL 0.8 MG/DL (0.2-1.0); BLOOD UREA NITROGEN 8 MG/DL (7-18); CALCIUM LEVEL 8.7 MG/DL (8.8-10.2); CARBON DIOXIDE LEVEL 24 MEQ/L (21-32); CHLORIDE LEVEL 101 MEQ/L (98-107); CREATININE FOR GFR 0.88 MG/DL (0.55-1.30); GLOMERULAR FILTRATION RATE > 60.0 (>45); GLUCOSE, FASTING 167 MG/DL (70-100); LIPASE 110 U/L (73-393); POTASSIUM SERUM 4.2 MEQ/L (3.5-5.1); SODIUM LEVEL 137 MEQ/L (136-145); TOTAL PROTEIN 6.9 GM/DL (6.4-8.2)
--- NOTE | 2020-05-28 19:28 | REPVR ---
PROCEDURE INFORMATION: Exam: CT Abdomen And Pelvis Without Contrast Exam date and time: 05/28/2020 6:44 PM Age: 64 years old Clinical indication: Abdominal pain; Generalized; Additional info: Abd pain TECHNIQUE: Imaging protocol: Computed tomography of the abdomen and pelvis without contrast. Radiation optimization: All CT scans at this facility use at least one of these dose optimization techniques: automated exposure control; mA and/or kV adjustment per patient size (includes targeted exams where dose is matched to clinical indication); or iterative reconstruction. COMPARISON: CT ABD/PEL W/IV ORAL CONTRAS 01/23/2020 2:24 PM FINDINGS: Limitations: Evaluation of the visceral organs and gastrointestinal tract is suboptimal given the lack of IV contrast. Lungs: Linear atelectasis and/or scar in the right middle lobe and lingula. Liver: Unremarkable. No mass. Gallbladder and bile ducts: Normal. No calcified stones. No ductal dilation. Pancreas: Unremarkable. No ductal dilation. Spleen: Unremarkable. No splenomegaly. Adrenals: Normal. No mass. Kidneys and ureters: Multiple nonobstructing stones within both kidneys. No focal renal lesion or hydronephrosis. Stomach and bowel: Small volume of interloop fluid and hazy density within the mesentery and fat surrounding the distal ileum consistent with ileitis. Colonic diverticulosis without diverticulitis. The stomach is unremarkable. No bowel obstruction. Appendix: No evidence of appendicitis. Intraperitoneal space: Small volume of abdominal ascites within the right paracolic gutter, slightly more voluminous on today's examination. Vasculature: Unremarkable. No abdominal aortic aneurysm. Lymph nodes: No enlarged lymph nodes. Urinary bladder: Unremarkable as visualized. Reproductive: Unremarkable as visualized. Bones/joints: Low-density nodule measuring 15 mm within and just below the skin to the right of the lower sternum, unchanged. Soft tissues: Tiny umbilical hernia containing fat. IMPRESSION: 1. Inflammatory changes within the mesentery and fat surrounding the distal ileum consistent with ileitis. Findings are consistent with Crohn's enteritis in light of the patient's known history of Crohn's disease. 2. Colonic diverticulosis. 3. Bilateral nephrolithiasis. Electronically signed by: Rodger Whitman On 05/28/2020 19:27:46 PM
[2020-05-28] MEDS ORDERED: NORC1TAB7 PO (20:12)
[2020-05-28] MEDS ORDERED: PRED10TA2 PO (20:12)
[2020-05-28] MEDS ORDERED: NORCO 5/325MG TABLET (BULK FOR ED) PO ONE (20:15)
[2020-05-28 20:17] VITALS: BP 138/67
== END 2020-05-28 20:41 | disposition home or self-care (01) ==
LOC: M ED 17:50
DX: K50.919 Crohn's disease, unspecified, with unspecified complications (principal); I11.9 Hypertensive heart disease without heart failure; G89.29 Other chronic pain; Z87.442 Personal history of urinary calculi; K57.30 Diverticulosis of large intestine without perforation or abscess without bleeding; N20.0 Calculus of kidney; Z79.899 Other long term (current) drug therapy; Z88.1 Allergy status to other antibiotic agents; Z88.8 Allergy status to other drugs, medicaments and biological substances; Z91.018 Allergy to other foods
CPT/HCPCS: 74176; 80048; 80076; 81001; 83690; 85025; 85610; 96361; 96374; 96375; 96376; 99284; C9113; J1885; J2270; J2405; J2930

== ENCOUNTER → 2020-06-04 | Outpatient (CLI) | payer MEDICARE ==
[~2020-06-04] MED LIST changes: +HYDR12.55 PO; +METF10004; +METO1TAB87; +NORC1TAB7 PO
[2020-06-04 11:58] LABS: MEAN CORPUSCULAR HEMOGLOBIN 30.2 pg (27.0-33.0); MEAN CORPUSCULAR HGB CONC 32.3 g/dl (32.0-36.5); MEAN CORPUSCULAR VOLUME 93.7 fl (80.0-96.0); PLATELET COUNT, AUTOMATED 250 10^3/uL (150-450); RED BLOOD COUNT 3.31 10^6/uL (4.00-5.40)
[2020-06-04 12:25] LABS: ERYTHROCYTE SEDIMENTATION RATE 7 mm/hr (0-30)
[2020-06-04 12:30] LABS: ALBUMIN 3.6 GM/DL (3.2-5.2); ALT/SGPT 24 U/L (12-78); BILIRUBIN,TOTAL 0.4 MG/DL (0.2-1.0); BLOOD UREA NITROGEN 14 MG/DL (7-18); CALCIUM LEVEL 8.7 MG/DL (8.8-10.2); CARBON DIOXIDE LEVEL 26 MEQ/L (21-32); CHLORIDE LEVEL 99 MEQ/L (98-107); CREATININE FOR GFR 1.09 MG/DL (0.55-1.30); GLOMERULAR FILTRATION RATE 53.5 (>45); GLUCOSE, FASTING 321 MG/DL (70-100); POTASSIUM SERUM 4.4 MEQ/L (3.5-5.1); SODIUM LEVEL 136 MEQ/L (136-145); TOTAL PROTEIN 6.3 GM/DL (6.4-8.2)
[2020-06-05 11:29] LABS: HEPATITIS B SURFACE ANTIBODY NEGATIVE (POSITIVE)
[2020-06-05 11:40] LABS: HEPATITIS B SURFACE ANTIGEN NEGATIVE (NEGATIVE)
[2020-06-14 13:07] LABS: HEPATITIS A IgG TOTAL Positive (Negative); HEPATITIS B CORE ANTIBODY IGG Negative (Negative); HERPES ZOSTER, VARICELLA IgG 1457 index (Immune >165); MUMPS VIRUS IgG ANTIBODY 9.2 AU/mL (Immune >10.9); RUBEOLA IgG ANTIBODY >300.0 AU/mL (Immune >16.4)
== END ==
LOC: M LAB 11:15
PROVIDERS: ATTEND Internal Medicine
DX: K50.012 Crohn's disease of small intestine with intestinal obstruction (principal); E11.69 Type 2 diabetes mellitus with other specified complication

== ENCOUNTER → 2020-06-04 | Outpatient (CLI) | payer MEDICARE ==
[2020-06-04 12:25] LABS: HEMOGLOBIN A1c 7.5 %
== END ==
LOC: M LAB 11:13
PROVIDERS: ATTEND Physician Assistant Medical
DX: E11.69 Type 2 diabetes mellitus with other specified complication (principal)

== ENCOUNTER → 2020-07-19 | Outpatient (REF) | payer MEDICARE | LOC: M LAB REF 12:37 | PROVIDERS: ATTEND Internal Medicine Gastroenterology | DX: K50.018 Crohn's disease of small intestine with other complication (principal) ==

== ENCOUNTER → 2020-08-27 | Outpatient (CLI) | payer MEDICARE | LOC: M LAB 11:27 | PROVIDERS: ATTEND Internal Medicine Gastroenterology | DX: K50.018 Crohn's disease of small intestine with other complication (principal); E11.69 Type 2 diabetes mellitus with other specified complication ==

== ENCOUNTER → 2020-08-27 | Outpatient (CLI) | payer MEDICARE ==
[2020-08-27 13:54] LABS: HEMOGLOBIN A1c 6.8 %
== END ==
LOC: M LAB 11:25
PROVIDERS: ATTEND Physician Assistant Medical
DX: E11.69 Type 2 diabetes mellitus with other specified complication (principal)

== ENCOUNTER → 2020-10-19 | Outpatient (CLI) | payer MEDICARE ==
[~2020-10-19] MED LIST changes: +GABA-282 PO; -GABA-843 PO; +HYDR-3490 PO; -HYDR25TAB PO; +SIME80CH5 PO; -SIME80TA PO
[2020-10-20 09:35] LABS: CREATININE FOR GFR 0.83 MG/DL (0.55-1.30); GLOMERULAR FILTRATION RATE > 60.0 (>45)
== END ==
LOC: M LAB 14:58
PROVIDERS: ATTEND Internal Medicine
DX: K50.00 Crohn's disease of small intestine without complications (principal)

== ENCOUNTER 2021-01-25 06:27 | Emergency (ER) | payer MEDICARE ==
[~2021-01-25] VITALS: Ht 144.8 cm; Wt 84.7 kg
[2021-01-25] MEDS ORDERED: MORPHINE 4 MG/ML 1ML VIAL/SYRINGE (J2270) IV PRN (07:30)
[2021-01-25] MEDS ORDERED: METOCLOPRAMIDE INJ 10MG/2ML VIAL (J2765 PER 1) IV ONE (07:30)
[2021-01-25] MEDS ORDERED: NS 1,000 ML IV SCH (07:30)
[2021-01-25] MEDS ORDERED: ONDANSETRON 4MG/2ML VIAL IV ONE (07:30)
[2021-01-25 08:36] LABS: BASO # 0.1 10^3/uL (0.0-0.2); BASO % 0.5 % (0.0-1.0); EOS # 0.1 10^3/uL (0.0-0.5); EOS % 0.9 % (0.0-3.0); HEMATOCRIT 35.7 % (36.0-47.0); HEMOGLOBIN 11.6 g/dl (12.0-15.5); LYMPH # 1.1 10^3/uL (1.5-5.0); LYMPH % 11.8 % (24.0-44.0); MEAN CORPUSCULAR HEMOGLOBIN 30.4 pg (27.0-33.0); MEAN CORPUSCULAR HGB CONC 32.5 g/dl (32.0-36.5); MEAN CORPUSCULAR VOLUME 93.5 fl (80.0-96.0); MONO # 0.6 10^3/uL (0.0-0.8); MONO % 6.1 % (2.0-8.0); NEUTROPHILS # 7.4 10^3/uL (1.5-8.5); PLATELET COUNT, AUTOMATED 280 10^3/uL (150-450); RED BLOOD COUNT 3.82 10^6/uL (4.00-5.40); WHITE BLOOD COUNT 9.2 10^3/uL (4.0-10.0)
[2021-01-25] MEDS ORDERED: ISOVUE-370 76% 100ML VIAL As Ordered ONE (08:41)
[2021-01-25 08:49] LABS: INR 0.89; PROTHROMBIN TIME 12.2 SECONDS (12.5-14.3)
[2021-01-25 09:07] LABS: ALBUMIN 3.7 GM/DL (3.2-5.2); ALT/SGPT 22 U/L (12-78); BILIRUBIN,DIRECT 0.2 MG/DL (0.0-0.2); BILIRUBIN,TOTAL 0.6 MG/DL (0.2-1.0); LIPASE 114 U/L (73-393); TOTAL PROTEIN 6.7 GM/DL (6.4-8.2)
--- NOTE | 2021-01-25 09:22 | REP ---
INDICATION: crohns - abd pain COMPARISON: 05/28/2020. TECHNIQUE: CT Scan of the abdomen and pelvis was performed with intravenous administration of 100 cc of Isovue 370, without oral contrast. Sagittal and coronal reconstruction images are performed. FINDINGS: Lung bases: There are mild fibro atelectatic changes in each lung base. Liver: Normal Gallbladder: Unremarkable. Spleen: Normal. Adrenals: Normal. Pancreas: Normal. Kidneys: There is cortical scarring and thinning of both kidneys. There is no hydronephrosis. There is a calcification in the lower pole of the right kidney for 6 mm in diameter. There are few calcifications scattered throughout the left kidney, the largest is in the mid aspect measuring 5 mm in diameter. Small and large bowel: There is mild inflammatory thickening of portions of the distal ileum. There is mild adjacent inflammation in the mesentery. There are scattered diverticula of the colon. Free fluid: There is mild free fluid in the right paracolic gutter. Abdominal aorta: No aneurysm or dissection. Adenopathy: None. Appendix: Not inflamed. Osseous structures: There are degenerative changes of the spine without compression deformity. Pelvis: No mass. IMPRESSION: Mild inflammatory thickening of portions of the distal ileum with associated inflammatory change in the mesentery of the right lower quadrant. Mild free fluid in the right paracolic gutter. Findings are similar to the prior exam. <Electronically signed by Nikolas Wilson > 01/25/21 0919
[2021-01-25 09:49] LABS: CK-MB VALUE MASS < 1.0 NG/ML (<3.6); CPK CREATINE PHOSPHOKINASE 26 U/L (26-192); MB/CK RELATIVE INDEX 3.85 (< OR =4); TROPONIN I < 0.02 NG/ML (< 0.10)
[2021-01-25] MEDS ORDERED: OXYC1TAB23 PO (12:12)
[2021-01-25] MEDS ORDERED: PRED10TA2 PO (12:16)
[2021-01-25 12:31] VITALS: BP 129/67
[2021-01-25] MEDS ORDERED: PERCOCET 5MG/325MG TAB PO ONE (12:40)
--- NOTE | 2021-01-25 15:14 | ED PDOC ---
Post-Departure Follow-Up ct abd/p faxed to dr peña for fu Isabella King MD Jan 25, 2021 15:14
--- NOTE | 2021-01-26 03:11 | ECGEPIP ---
[facility] - ED Test Date: 2021-01-25 Pat Name: WES LEW Department: Room: - Gender: Female [employer]: : [id number] Requested By: Elaine English Order Number: [id number] Reading MD: Ricardo Poole Measurements Intervals [place] Rate: 80 P: 17 UT: 140 QRS: -15 QRSD: 74 T: -33 QT: 410 QTc: 472 Interpretive Statements Normal sinus rhythm Nonspecific ST and T wave abnormality, consider anterolateral ischemia Electronically Signed on 01-26-2021 3:11:14 EDT by Ricardo Poole
== END 2021-01-25 12:45 | disposition home or self-care (01) ==
LOC: M ED 06:27
DX: K50.90 Crohn's disease, unspecified, without complications (principal); E11.9 Type 2 diabetes mellitus without complications; I10 Essential (primary) hypertension; Z87.19 Personal history of other diseases of the digestive system; Z79.4 Long term (current) use of insulin; Z79.899 Other long term (current) drug therapy; Z88.1 Allergy status to other antibiotic agents; Z88.8 Allergy status to other drugs, medicaments and biological substances; Z91.018 Allergy to other foods
CPT/HCPCS: 36415; 74177; 80047; 80076; 82550; 82553; 83605; 83690; 84484; 85025; 85610; 93005; 93041; 96361; 96374; 99284; J2270; J2405; J2765; Q9967

== ENCOUNTER → 2021-03-04 | Outpatient (CLI) | payer MEDICARE ==
[~2021-03-04] MED LIST changes: +OXYC1TAB23 PO
[2021-03-04 11:29] LABS: ALBUMIN 3.6 GM/DL (3.2-5.2); ALT/SGPT 27 U/L (12-78); BILIRUBIN,TOTAL 0.8 MG/DL (0.2-1.0); BLOOD UREA NITROGEN 11 MG/DL (7-18); CALCIUM LEVEL 8.9 MG/DL (8.8-10.2); CARBON DIOXIDE LEVEL 29 MEQ/L (21-32); CHLORIDE LEVEL 103 MEQ/L (98-107); CHOLESTEROL LEVEL 165 MG/DL (<200); CHOLESTEROL RISK RATIO 4.125 (<5); CREATININE FOR GFR 0.83 MG/DL (0.55-1.30); GLOMERULAR FILTRATION RATE > 60.0 (>45); GLUCOSE, FASTING 161 MG/DL (70-100); HDL CHOLESTEROL 40 MG/DL (>40); LDL CHOLESTEROL 52 MG/DL (<100); NON-HDL-C 125 MG/DL; POTASSIUM SERUM 3.6 MEQ/L (3.5-5.1); SODIUM LEVEL 140 MEQ/L (136-145); TOTAL PROTEIN 6.7 GM/DL (6.4-8.2); TRIGLYCERIDES LEVEL 366 MG/DL (<150)
[2021-03-04 11:35] LABS: HEMOGLOBIN A1c 7.7 %
[2021-03-04 11:38] LABS: CREATININE, URINE 77.3 MG/DL; MALB URINE SIEMENS 13.2 MG/L
== END ==
LOC: M LAB 10:30
PROVIDERS: ATTEND Physician Assistant Medical
DX: E11.69 Type 2 diabetes mellitus with other specified complication (principal)

== ENCOUNTER → 2021-04-07 | Outpatient (CLI) | payer MEDICARE ==
[2021-04-07 11:47] LABS: BASO % 0.7 % (0.0-1.0); EOS # 0.1 10^3/uL (0.0-0.5); EOS % 1.7 % (0.0-3.0); HEMATOCRIT 28.9 % (36.0-47.0); HEMOGLOBIN 9.3 g/dl (12.0-15.5); LYMPH # 1.1 10^3/uL (1.5-5.0); LYMPH % 18.2 % (24.0-44.0); MEAN CORPUSCULAR HEMOGLOBIN 30.6 pg (27.0-33.0); MEAN CORPUSCULAR HGB CONC 32.2 g/dl (32.0-36.5); MEAN CORPUSCULAR VOLUME 95.1 fl (80.0-96.0); MONO # 0.5 10^3/uL (0.0-0.8); MONO % 7.8 % (2.0-8.0); NEUTROPHILS # 4.2 10^3/uL (1.5-8.5); NEUTROPHILS % 70.9 % (36.0-66.0); PLATELET COUNT, AUTOMATED 271 10^3/uL (150-450); RED BLOOD COUNT 3.04 10^6/uL (4.00-5.40); WHITE BLOOD COUNT 5.9 10^3/uL (4.0-10.0)
[2021-04-07 12:13] LABS: ALBUMIN 3.4 GM/DL (3.2-5.2); ALT/SGPT 19 U/L (12-78); BILIRUBIN,TOTAL 0.7 MG/DL (0.2-1.0); BLOOD UREA NITROGEN 14 MG/DL (7-18); CALCIUM LEVEL 9.3 MG/DL (8.8-10.2); CARBON DIOXIDE LEVEL 31 MEQ/L (21-32); CHLORIDE LEVEL 104 MEQ/L (98-107); CREATININE FOR GFR 0.75 MG/DL (0.55-1.30); GLOMERULAR FILTRATION RATE > 60.0 (>45); GLUCOSE, FASTING 111 MG/DL (70-100); POTASSIUM SERUM 4.1 MEQ/L (3.5-5.1); SODIUM LEVEL 140 MEQ/L (136-145)
== END ==
LOC: M LAB 10:58
PROVIDERS: ATTEND Internal Medicine Gastroenterology
DX: K50.018 Crohn's disease of small intestine with other complication (principal)

== ENCOUNTER 2021-05-07 14:31 | Inpatient (IN) | payer MEDICARE ==
[~2021-05-07] VITALS: Ht 144.8 cm; Wt 83.0 kg
[~2021-05-07 14:31] MED LIST changes: -METF10004; -METO1TAB87; +METO1TAB87 PO
[2021-05-07] MEDS ORDERED: NS 1,000 ML IV ONE (18:10)
[2021-05-07] MEDS ORDERED: MORPHINE 4 MG/ML 1ML VIAL/SYRINGE (J2270) IV ONE ×2 (18:10→21:20)
[2021-05-07] MEDS ORDERED: ONDANSETRON 4MG/2ML VIAL IV ONE (18:10)
[2021-05-07] MEDS ORDERED: methylPREDNISolone 125MG 2ML VIAL IV ONE (18:10)
[2021-05-07 18:53] LABS: BASO % 0.2 % (0.0-1.0); EOS # 0.1 10^3/uL (0.0-0.5); EOS % 1.1 % (0.0-3.0); HEMATOCRIT 24.1 % (36.0-47.0); HEMOGLOBIN 7.6 g/dl (12.0-15.5); LYMPH # 0.9 10^3/uL (1.5-5.0); LYMPH % 14.1 % (24.0-44.0); MEAN CORPUSCULAR HEMOGLOBIN 30.6 pg (27.0-33.0); MEAN CORPUSCULAR HGB CONC 31.5 g/dl (32.0-36.5); MEAN CORPUSCULAR VOLUME 97.2 fl (80.0-96.0); MONO # 0.4 10^3/uL (0.0-0.8); MONO % 5.5 % (2.0-8.0); NEUTROPHILS # 5.2 10^3/uL (1.5-8.5); NEUTROPHILS % 78.5 % (36.0-66.0); PLATELET COUNT, AUTOMATED 307 10^3/uL (150-450); RED BLOOD COUNT 2.48 10^6/uL (4.00-5.40); WHITE BLOOD COUNT 6.6 10^3/uL (4.0-10.0)
[2021-05-07 19:03] LABS: INR 0.93; PROTHROMBIN TIME 12.9 SECONDS (12.7-14.5)
[2021-05-07 19:04] LABS: PARTIAL THROMBOPLASTIN TIME 20.9 SECONDS (25.9-37.0)
[2021-05-07] MEDS ORDERED: AZAT50TA2 PO (19:06)
[2021-05-07] MEDS ORDERED: FARX1TAB5 PO ×2 (19:06→22:36)
[2021-05-07 19:17] LABS: ALBUMIN 3.3 GM/DL (3.2-5.2); ALT/SGPT 15 U/L (12-78); BILIRUBIN,DIRECT 0.2 MG/DL (0.0-0.2); BILIRUBIN,TOTAL 0.7 MG/DL (0.2-1.0); LIPASE 115 U/L (73-393)
[2021-05-07] MEDS ORDERED: ISOVUE-370 76% 100ML VIAL As Ordered ONE (19:47)
--- NOTE | 2021-05-07 21:09 | REPVR ---
PROCEDURE INFORMATION: Exam: CT Abdomen And Pelvis With Contrast Exam date and time: 05/07/2021 7:58 PM Age: 65 years old Clinical indication: Abdominal pain; Localized; Upper; Additional info: Upper abd pain TECHNIQUE: Imaging protocol: Computed tomography of the abdomen and pelvis with contrast. Radiation optimization: All CT scans at this facility use at least one of these dose optimization techniques: automated exposure control; mA and/or kV adjustment per patient size (includes targeted exams where dose is matched to clinical indication); or iterative reconstruction. Contrast material: ISOVUE 370; Contrast volume: 100 ml; Contrast route: INTRAVENOUS (IV); COMPARISON: CT ABD/PEL W/IV CONTRAST ONLY 01/25/2021 8:43 AM FINDINGS: Lungs: Minimal atelectasis at bilateral lung bases. Liver: Mild hepatomegaly. The liver measures 19 cm. Gallbladder and bile ducts: Normal. No calcified stones. No ductal dilation. Pancreas: Normal. No ductal dilation. Spleen: Spleen is enlarged measuring 12 cm. Adrenal glands: Normal. No mass. Kidneys and ureters: Nonobstructing multiple calculi in bilateral kidneys. The largest measures 5 mm in the midpole of the left kidney and 7 mm at the lower pole of the right kidney. Stomach and bowel: Unremarkable. No obstruction. No mucosal thickening. Appendix: No evidence of appendicitis. Intraperitoneal space: Small amount of fluid in the abdomen in the right paracolic gutter and in the right mesentery. Vasculature: Unremarkable. No abdominal aortic aneurysm. Lymph nodes: Unremarkable. No enlarged lymph nodes. Urinary bladder: Unremarkable as visualized. Reproductive: Unremarkable as visualized. Bones/joints: Unremarkable. No acute fracture. Soft tissues: Small umbilical hernia containing fat. IMPRESSION: Mild hepatosplenomegaly. Stable inflammatory changes within the mesentery and small amount of fluid in the right paracolic gutter. Findings are consistent with patient's history of Crohn's disease. Electronically signed by: James Bobo On 05/07/2021 21:09:01 PM
[2021-05-07] MEDS ORDERED: PROMETHAZINE INJ 25 MG/ML VIAL (J2550) IV ONE (21:20)
[2021-05-07 22:25] LABS: BLOOD UREA NITROGEN 12 MG/DL (7-18); CALCIUM LEVEL 9.3 MG/DL (8.8-10.2); CARBON DIOXIDE LEVEL 29 MEQ/L (21-32); CHLORIDE LEVEL 105 MEQ/L (98-107); CREATININE FOR GFR 0.88 MG/DL (0.55-1.30); GLOMERULAR FILTRATION RATE > 60.0 (>45); GLUCOSE, FASTING 116 MG/DL (70-100); POTASSIUM SERUM 4.1 MEQ/L (3.5-5.1); SODIUM LEVEL 141 MEQ/L (136-145)
[2021-05-07] MEDS ORDERED: BUDE3CAP PO (22:36)
[2021-05-07] MEDS ORDERED: METF10004 PO (22:36)
[2021-05-07] MEDS ORDERED: JANU100T PO (22:36)
[2021-05-07] MEDS ORDERED: HYDR-3490 PO (22:36)
[2021-05-07] MEDS ORDERED: METO25TA4 PO (22:36)
[2021-05-07] MEDS ORDERED: HOME MED LIST COMPLETE! XX SCH (22:40)
--- NOTE | 2021-05-07 22:49 | IPNPDOC ---
Text Note Date of Service The patient was seen on 05/07/21. NOTE Time of service 1015pm is a 65 yr old who presented w c/o abdominal pain and nausea; she will be admitted for acute Crohns vs infection and acute anemia probably 2/2 azathioprine. Plan: transfuse blood / will ask the day time team to consult Dr. Mcpherson in the morning. rest per 's H&P VS,Adarsh, I+O VS, Adarsh, I+O Laboratory Tests 05/07/21 18:09 Vital Signs Date Time Temp Pulse Resp B/P (MAP) Pulse Ox O2 Delivery O2 Flow Rate FiO2 05/07/21 21:20 18 05/07/21 14:32 98.6 74 137/91 (106) 100 Room Air EMMY HALE MD May 07, 2021 22:49
[2021-05-07] MEDS ORDERED: MORPHINE 2 MG/ML 1ML VIAL (J2270) IV PRN (22:50)
[2021-05-07 22:51] VITALS: BP 128/80
[2021-05-07] MEDS ORDERED: GLUCOSE 4GM CHEW TABLET PO PRN (22:55)
[2021-05-07] MEDS ORDERED: DEXTROSE 50% 50 ML SYRINGE IV PRN (22:55)
[2021-05-07] MEDS ORDERED: GLUCAGON INJ 1MG VIAL SC PRN (22:55)
--- NOTE | 2021-05-07 23:27 | HPEPDOC ---
[facility] Medical History & Physical Date of Admission May 07, 2021 Date of Service: May 07, 2021 Primary Care Physician: Halley Garcia MD Attending Physician: EMMY HALE MD History and Physical Chief complaint: Abdominal pain HISTORY OF PRESENT ILLNESS: This is a 65-year-old female presents to [facility] ER with chief complaint of sharp mid epigastric abdominal pain that started insidiously this morning while she was at work. Patient has history of Crohn's disease diagnosed in 2017 that affects the small bowel only that was diagnosed via PillCam. Pt has suboptimal control with Stelara infusions which she gets every 8 weeks and her Imuran was recently increased from 100mg to 150 mg daily and she continues to take budesonide 3 mg daily. Her last Stelara infusion was in January and she is due for another at the end of this month. Her abdominal pain has persisted since its onset earlier this morning and she states that the pain is constant in nature but does not radiate anywhere. There is some associated nausea but she denies any vomiting. She states that she has experienced this type of pain during her prior Crohn's flareups. She states that she typically has 2-3 episodes of flare-ups per year and follows with Dr. Martinez (GI) outpatient. Her last bowel movement was this morning and she has noticed blood in her stool but denies any diarrhea. REVIEW OF SYSTEMS: General: Denies fever, shaking chills, or unintentional weight loss. Feels fatigued HEENT: Denies changes in vision including blurry vision or double vision, or hearing loss nasal congestion or sore throat Heart: Denies chest pain or chest pressure or discomfort, or palpitations, or lower extremity edema Pulm: Denies cough or sputum production or shortness of breath GI: Nausea but denies any vomiting or diarrhea. Blood in stools. Sharp stabbing midepigastric abdominal pain that is constant in nature. 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 Patient used to smoke (patient was very lethargic and was unable to answer how many pack history. We will try to obtain at another time) PHYSICAL EXAM: Vital Signs Date Time Temp Pulse Resp B/P (MAP) Pulse Ox O2 Delivery O2 Flow Rate FiO2 05/07/21 14:32 98.6 74 18 137/91 (106) 100 Room Air 05/08/21 02:00 93 GENERAL: The patient is a well-developed, well-nourished in no apparent distress. AAOx3 NEURO: No focal neurological deficits HEENT: Head is normocephalic and atraumatic. Extraocular muscles are intact. Pupils are equal, round, and reactive to light and accommodation. Nares appears normal. Moist mucous membranes. PULM: Clear to auscultation bilaterally. No wheezing, rhonchi or rales appreciated.. CARDIO: Normal S1, S2. no significant murmurs, gallops, rubs or clicks. No signs of peripheral edema ABDOMEN: Obese, soft, tender on palpation most prominent in the mid Epigastric region. Nondistended. Normal bowel sounds. No significant organomegaly appreciated. EXTREMITIES: No cyanosis, clubbing, rash, lesions. LABS: IMAGING: CT abdomen and pelvis with contrast:Impression mild hepatosplenomegaly. Stable inflammatory changes within the mesentery and small amount of fluid in the right paracolic gutter with findings consistent with patient's history of Crohn's disease ASSESSMENT AND PLAN: is a 65-year-old female with a history of Crohn's disease of small bowel, Ischemic colitis, Type 2 diabetes, Essential hypertension, Dyslipidemia & Obesity will be admitted for acute Crohn's & symptomatic anemia. Abdominal pain likely secondary to flare of her Crohn's disease Imaging of abdomen and pelvis with contrast shows findings consistent with Crohn's disease, likely flareup. Dr. Martinez informed and recommends holding her Imuran. Continue with budesonide. He will see patient tomorrow am We will order for ESR and CRP and continue to trend She was loaded with IV Solu-Medrol in the ER; however will order for GI panel to r/o infection such as C.diff prior to starting scheduled steroids. Continue clear liquid diet Continue Zofran for nausea Will order acetaminophen for pain & avoid opiates which area associated with increased mortality in IBD patients Will also avoid NSAIDs which can aggravate IBD symptoms Acute blood loss anemia Stool occult was positive in the ER Likely due to anemia of chronic disease from her Crohn's disease versus adverse effect from increased dose of Imuran which could cause decreased bone marrow function leading to the anemia. We will hold Imuran per Dr. Elise H&H in the ER 7.6/24.1transfuse with 1 PRBC and will continue to monitor her H&H closely Iron panel ordered to determine if she is a candidate for Venofer; will also order b12 folate levels Continue with home med iron sulfate , b12 Lactic acidosis Afebrile, no leukocytosis Patient status post 1 L normal saline bolus c/w maintenance NS 80cc/h Repeat lactic acid ordered pending results. DM2 with peripheral neuropathy We will hold her Metformin and Januvia and start her on SSIs with FSBS every 6 hours plus hypoglycemic protocol Continue with home med gabapentin Dyslipidemia Continue with home med atorvastatin Essential HTN Continue home meds: HCTZ and metoprolol Class 2 Obesity BMI of 39.4 Complicated medical care GERD Continue home med Protonix DVT prophylaxis with heparin Dispo: home after at least 2 midnight's stay Home Medications Scheduled Atorvastatin Calcium (Atorvastatin Calcium) 10 Mg Tab, 10 MG PO QHS Budesonide (Budesonide EC) 3 Mg Capdr...er, 9 MG PO DAILY Calcium Carbonate/Vitamin D3 (Calcium 600-Vit D3 400 Tablet) 1 Each Tablet, 1 TAB PO BID Cyanocobalamin (Vitamin B-12) (Vitamin B-12) 1,000 Mcg Tab, 1,000 MCG PO DAILY Dapagliflozin Propanediol (Farxiga) 5 Mg Tablet, 5 MG PO DAILY Enalapril Maleate (Enalapril Maleate) 20 Mg Tab, 20 MG PO DAILY Ferrous Sulfate (Ferrous Sulfate) 325 Mg Tab, 325 MG PO BID Gabapentin (Gabapentin) 300 Mg Cap, 300 MG PO TID Hydrochlorothiazide (Hydrochlorothiazide) 25 Mg Tablet, 25 MG PO DAILY Magnesium Oxide (Magnesium Oxide) 250 Mg Tab, 250 MG PO DAILY Metformin HCl (Metformin HCl) 1,000 Mg Tablet, 1,000 MG PO BID Metoprolol Tartrate (Metoprolol Tartrate) 25 Mg Tablet, 25 MG PO BID Pantoprazole Sodium (Pantoprazole Sodium) 40 Mg Tab, 40 MG PO DAILY Sitagliptin Phosphate (Januvia) 100 Mg Tablet, 100 MG PO DAILY Ustekinumab (Stelara) 90 Mg/1 Ml Syringe, 90 MG SC ASDIRECTED EVERY 8 WEEKS, NEXT INFUSION 05/11/21 Scheduled PRN Ondansetron HCl (Ondansetron HCl) 4 Mg Tablet, 4 MG PO Q12H PRN for NAUSEA Allergies Coded Allergies: ciprofloxacin (Verified Allergy, Intermediate, rash, 01/25/21) indomethacin (Verified Allergy, Intermediate, rash, 01/25/21) infliximab (Verified Allergy, Unknown, 104 temperature, 01/25/21) rofecoxib (Verified Allergy, Unknown, CHF, 01/25/21) tomato (Verified Allergy, Unknown, rash, 01/25/21) diazepam (Verified Adverse Reaction, Mild, agitation, 01/25/21) A-FIB/CHADSVASC A-FIB History Current/History of A-Fib/PAF?: No Current PO Anticoag Therapy: No GME ATTESTATION GME ATTESTATION My faculty preceptor for this patient encounter was physically present during the encounter and was fully available. All aspects of the patient interview, examination, medical decision making process, and medical care plan development were reviewed and approved by the faculty preceptor. The faculty preceptor is aware and concurs with the plan as stated in the body of this note and will attest to such by his/her cosignature. ATTENDING NOTE Time of service 1015PM is a 65 yr old who presented w c/o abdominal pain and nausea; she will be admitted for acute Crohns vs infection and acute anemia probably 2/2 azathioprine. Plan: transfuse blood / will ask the day time team to consult Dr. Mcpherson in the morning. rest per 's H&P Mariana Hernandez DO May 07, 2021 23:27 EMMY HALE MD May 08, 2021 03:50
[2021-05-07 23:42] VITALS: BP 126/71
[2021-05-08] VITALS (11 sets, daily range): BP systolic 120–142; BP diastolic 58–77
[2021-05-08] MEDS ORDERED: NS 1,000 ML IV SCH
[2021-05-08 00:16] LABS: IRON (FE) 19 UG/DL (50-170); PERCENT SATURATION 5.1 % (13.2-45.0); TOTAL IRON BINDING CAPACITY 376 UG/DL (250-450)
[2021-05-08 00:40] LABS: RSV AMPLIFICATION NEGATIVE (NEGATIVE)
[2021-05-08 02:23] LABS: HEMOGLOBIN 8.7 g/dl (12.0-15.5); MEAN CORPUSCULAR HEMOGLOBIN 30.7 pg (27.0-33.0); MEAN CORPUSCULAR HGB CONC 32.2 g/dl (32.0-36.5); MEAN CORPUSCULAR VOLUME 95.4 fl (80.0-96.0); PLATELET COUNT, AUTOMATED 250 10^3/uL (150-450); RED BLOOD COUNT 2.83 10^6/uL (4.00-5.40); WHITE BLOOD COUNT 5.4 10^3/uL (4.0-10.0)
[2021-05-08] MEDS: FERROUS SULFATE 325MG TAB PO SCH ×3 (02:24→20:08)
[2021-05-08] MEDS: ATORVASTATIN 10 MG TAB PO SCH ×2 (02:25→20:08)
[2021-05-08] MEDS: GABAPENTIN 300 MG CAP PO SCH ×5 (02:25→20:08)
[2021-05-08] MEDS: METOPROLOL TART 25 MG TABLET PO SCH ×4 (02:25→20:08)
[2021-05-08 02:53] LABS: ERYTHROCYTE SEDIMENTATION RATE 23 mm/hr (0-30)
[2021-05-08] MEDS: ONDANSETRON 4MG/2ML VIAL IV PRN ×2 (05:01→10:20)
[2021-05-08] MEDS: ACETAMINOPHEN 650MG ER TAB (TYLENOL ARTHRITIS) PO SCH ×3 (05:51→20:07)
[2021-05-08 06:42] LABS: HEMATOCRIT 27.2 % (36.0-47.0); HEMOGLOBIN 8.6 g/dl (12.0-15.5); MEAN CORPUSCULAR HEMOGLOBIN 30.3 pg (27.0-33.0); MEAN CORPUSCULAR HGB CONC 31.6 g/dl (32.0-36.5); MEAN CORPUSCULAR VOLUME 95.8 fl (80.0-96.0); PLATELET COUNT, AUTOMATED 267 10^3/uL (150-450); RED BLOOD COUNT 2.84 10^6/uL (4.00-5.40); WHITE BLOOD COUNT 5.9 10^3/uL (4.0-10.0)
[2021-05-08 07:07] LABS: BLOOD UREA NITROGEN 12 MG/DL (7-18); CALCIUM LEVEL 8.6 MG/DL (8.8-10.2); CARBON DIOXIDE LEVEL 28 MEQ/L (21-32); CHLORIDE LEVEL 104 MEQ/L (98-107); GLOMERULAR FILTRATION RATE > 60.0 (>45); GLUCOSE, FASTING 214 MG/DL (70-100); MAGNESIUM LEVEL 1.8 MG/DL (1.8-2.4); POTASSIUM SERUM 4.6 MEQ/L (3.5-5.1); SODIUM LEVEL 139 MEQ/L (136-145)
[2021-05-08] MEDS: HEPARIN SOD (PORCINE) 5000UNITS/ML 1ML VIAL/SYRINGE SC SCH ×2 (08:14→20:08)
[2021-05-08] MEDS: HumaLOG INSULIN (NovoLOG) PER UNIT SC SCH ×4 (08:15→20:08)
[2021-05-08] MEDS: BUDESONIDE EC 3 MG CAP (ENTOCORT EC) PO SCH (08:17)
[2021-05-08] MEDS: ENALAPRIL MALEATE 10 MG TAB PO SCH ×2 (08:19→08:35)
[2021-05-08] MEDS: CYANOCOBALAMIN 500 MCG TAB PO SCH ×2 (08:19→08:35)
[2021-05-08] MEDS: PANTOPRAZOLE 40MG TAB (PROTONIX) PO SCH (08:20)
[2021-05-08 09:00] LABS: FOLATE 22.2 NG/ML (>5.4); VITAMIN B12 LEVEL 603 PG/ML (247-911)
[2021-05-08] MEDS ORDERED: FLUBLOK(EGG FREE)(QUAD)INFLUENZA VACC 0.5ML SYRINGE 18YRS & OLDER IM ONE (09:00)
[2021-05-08] MEDS ORDERED: PNEUMOCOCCAL VACCINE 0.5ML SYRINGE (PNEUMOVAX 23) IM ONE (09:00)
[2021-05-08 09:48] LABS: FERRITIN 6 NG/ML (8-252)
[2021-05-08 12:49] LABS: HEMATOCRIT 25.5 % (36.0-47.0); HEMOGLOBIN 8.2 g/dl (12.0-15.5)
--- NOTE | 2021-05-08 13:23 | IPNPDOC ---
Text Note Date of Service The patient was seen on 05/08/21. NOTE Subjective: Patient is a 65-year-old female presented to the emergency depart [facility] last night with complaint of sharp mid epigastric abdominal pain. Patient does have a history of Crohn's disease. Patient was found to be anemic. Patient was recently started on Imuran which is most likely what is causing patient's anemia. Patient was transfused 1 unit of blood last night. Patient is complaining of some nausea and abdominal pain this morning however, in speaking with patient's snailer, the nausea is a chronic thing. Patient is otherwise feeling well at this time. Review of systems: General: Patient denies fevers HEENT: Patient denies headaches Cardiovascular: Patient denies chest pain Respiratory: Patient denies shortness of breath, cough GI: Patient reports abdominal pain and nausea but denies vomiting or diarrhea : Patient denies increased frequency or pain with urination Extremities: Patient denies swelling or pain in extremities Neurological: Patient denies numbness or tingling in legs Physical exam: Vitals: See below General: Alert and oriented female patient who was sleeping when I walked in the room. Patient easily woke up and did not appear to be in any acute distress. HEENT: Normocephalic, atraumatic, moist mucous membranes. Neck: No lymphadenopathy or thyromegaly Cardiac: Regular rate and rhythm, no murmurs, normal S1, normal S2 Pulm: Clear to auscultation bilaterally. No wheezes, rhonchi, rales Abd: Nondistended, tender to palpation in the epigastric area, normal bowel sounds Ext: No edema bilateral lower extremities Labs: See below Imaging: No new imaging has been performed Assessment/plan: 65-year-old female with history of Crohn's disease of the small bowel, skin colitis, type 2 diabetes, essential hypertension, dyslipidemia, and obesity was admitted for acute Crohn's and symptomatic anemia. 1. Symptomatic anemia. Patient had a hemoglobin of 7.6 on admission. Patient received a unit of blood and responded to 8.7 however, on recheck this afternoon it did fall to 8.2. We will transfuse an additional unit of blood. The anemia is mostly from the Imuran which will be held. I did speak with the patient's snailer who recommends continuing budesonide for Crohn's disease. 2. Crohn's disease. We will continue with oral budesonide at this time. CT scan was consistent with Crohn's disease and does not show any bowel obstruction. 3. Lactic acidosis. This has resolved. Continue to monitor. 4. Type 2 diabetes mellitus. Hold Metformin and Januvia. Start on sliding scale insulin with hypoglycemic protocol. 5. Dyslipidemia. Continue home medications. 6. Hypertension. Continue home meds. 7. Class II obesity which complicates patient's care. DVT Prophylaxis: Heparin Disposition: Pending clinical improvement Adarsh BAUTISTA, I+O Adarsh BAUTISTA I+O Laboratory Tests 05/07/21 18:09 05/08/21 02:17 05/08/21 06:12 05/08/21 12:36 Vital Signs Date Time Temp Pulse Resp B/P (MAP) Pulse Ox O2 Delivery O2 Flow Rate FiO2 05/08/21 08:35 73 118/64 05/08/21 02:00 98.0 18 Room Air 93 05/08/21 01:38 95 I&O- Last 24 Hours up to 6 AM 05/08/21 06:00 Intake Total 1590 ml Output Total 400 ml Balance 1190 ml VALENTÍN MIGUEL DO May 08, 2021 13:23
[2021-05-08] MEDS ORDERED: MORPHINE 2 MG/ML 1ML VIAL (J2270) IV ONE (17:10)
[2021-05-09] MEDS: ACETAMINOPHEN 650MG ER TAB (TYLENOL ARTHRITIS) PO SCH ×3 (03:25→20:43)
[2021-05-09 06:00] VITALS: BP 132/70
[2021-05-09 06:09] LABS: HEMATOCRIT 32.5 % (36.0-47.0); MEAN CORPUSCULAR HEMOGLOBIN 29.7 pg (27.0-33.0); MEAN CORPUSCULAR HGB CONC 31.4 g/dl (32.0-36.5); MEAN CORPUSCULAR VOLUME 94.8 fl (80.0-96.0); PLATELET COUNT, AUTOMATED 244 10^3/uL (150-450); RED BLOOD COUNT 3.43 10^6/uL (4.00-5.40); WHITE BLOOD COUNT 5.9 10^3/uL (4.0-10.0)
[2021-05-09 06:18] LABS: HEMOGLOBIN 10.2 g/dl (12.0-15.5)
[2021-05-09 06:23] LABS: BLOOD UREA NITROGEN 14 MG/DL (7-18); CALCIUM LEVEL 8.5 MG/DL (8.8-10.2); CARBON DIOXIDE LEVEL 23 MEQ/L (21-32); CHLORIDE LEVEL 107 MEQ/L (98-107); CREATININE FOR GFR 0.78 MG/DL (0.55-1.30); GLOMERULAR FILTRATION RATE > 60.0 (>45); GLUCOSE, FASTING 128 MG/DL (70-100); SODIUM LEVEL 136 MEQ/L (136-145)
[2021-05-09] MEDS: HumaLOG INSULIN (NovoLOG) PER UNIT SC SCH ×4 (07:30→20:45)
[2021-05-09] MEDS: BUDESONIDE EC 3 MG CAP (ENTOCORT EC) PO SCH (08:52)
[2021-05-09] MEDS: ONDANSETRON 4MG/2ML VIAL IV PRN (08:52)
[2021-05-09] MEDS: PANTOPRAZOLE 40MG TAB (PROTONIX) PO SCH (08:53)
[2021-05-09] MEDS: HEPARIN SOD (PORCINE) 5000UNITS/ML 1ML VIAL/SYRINGE SC SCH ×2 (08:53→20:45)
[2021-05-09] MEDS: GABAPENTIN 300 MG CAP PO SCH ×3 (08:53→20:44)
[2021-05-09] MEDS: FERROUS SULFATE 325MG TAB PO SCH ×2 (08:53→20:44)
[2021-05-09] MEDS: CYANOCOBALAMIN 500 MCG TAB PO SCH ×2 (08:53→09:00)
[2021-05-09] MEDS: ENALAPRIL MALEATE 10 MG TAB PO SCH ×2 (08:55→09:00)
[2021-05-09] MEDS: METOPROLOL TART 25 MG TABLET PO SCH ×3 (08:55→20:44)
[2021-05-09] MEDS ORDERED: oxyCODONE 5MG TAB PO ONE (10:45)
--- NOTE | 2021-05-09 10:49 | IPNPDOC ---
Text Note Date of Service The patient was seen on 05/09/21. NOTE Subjective: 65-year-old female who presented the emergency department transfer with a complaint of sharp abdominal pain in the midepigastric area. Patient does have a history of Crohn's disease and appears to be in a flare of Crohn's disease. Patient was found to be anemic but this has improved with 2 units of blood transfusion. Patient was on Imuran which is most likely caused the patient's anemia. Patient states that she is still having abdominal pain but is otherwise doing well. Review of systems: General: Patient denies fevers HEENT: Patient denies headaches Cardiovascular: Patient denies chest pain Respiratory: Patient denies shortness of breath, cough GI: Patient reports abdominal pain, patient denies nausea, vomiting, diarrhea : Patient denies increased frequency or pain with urination Extremities: Patient denies swelling or pain in extremities Neurological: Patient denies numbness or tingling in legs Physical exam: Vitals: See below General: Alert and oriented female patient who was laying in bed when I walked in. Patient did not appear to be in acute distress. HEENT: Normocephalic, atraumatic, moist mucous membranes. Neck: No lymphadenopathy or thyromegaly Cardiac: Regular rate and rhythm, no murmurs, normal S1, normal S2 Pulm: Clear to auscultation bilaterally. No wheezes, rhonchi, rales Abd: Nondistended, tender to palpation especially in the mid epigastric region, no rebound tenderness, normal bowel sounds Ext: No edema bilateral lower extremities Labs: See below Imaging: No new imaging has been performed Assessment/plan: 65-year-old female with history of Crohn's disease of the small bowel, history of colitis, cysts type 2 diabetes type 2 diabetes, essential hypertension, dyslipidemia, and obesity was admitted for acute Crohn's and symptomatic anemia 1. Symptomatic anemia. Patient hemoglobin has recovered to 10.2 with 2 units of blood. We will continue to monitor. 2. Crohn's disease. Continue oral budesonide and as needed pain medication. CT scan was consistent with Crohn's disease. I did discuss the case with GI who recommended continuing the budesonide. 3. Lactic acidosis. This has resolved and will continue to monitor. 4. Type 2 diabetes. Hold Metformin and Januvia. Start sliding scale with hypoglycemic protocol. 5. Dyslipidemia. Continue home medications. 6. Hypertension. Continue home meds. 7. Class II obesity which complicates patient's care DVT Prophylaxis: Heparin Disposition: Pending clinical improvement Adarsh BAUTISTA, I+O Adarsh BAUTISTA I+O Laboratory Tests 05/08/21 12:36 05/09/21 05:48 Vital Signs Date Time Temp Pulse Resp B/P (MAP) Pulse Ox O2 Delivery O2 Flow Rate FiO2 05/09/21 09:00 68 133/69 05/09/21 06:00 97.9 18 95 Room Air 05/08/21 02:00 93 I&O- Last 24 Hours up to 6 AM 05/09/21 06:00 Intake Total 875 ml Output Total 400 ml Balance 475 ml VALENTÍN MIGUEL DO May 09, 2021 10:49
[2021-05-09 14:00] VITALS: BP 134/69
[2021-05-09 20:05] VITALS: BP 133/68
[2021-05-09] MEDS: ATORVASTATIN 10 MG TAB PO SCH (20:43)
[2021-05-10] MEDS: ACETAMINOPHEN 650MG ER TAB (TYLENOL ARTHRITIS) PO SCH (04:05)
[2021-05-10 05:17] LABS: HEMATOCRIT 32.4 % (36.0-47.0); HEMOGLOBIN 10.4 g/dl (12.0-15.5); MEAN CORPUSCULAR HEMOGLOBIN 30.3 pg (27.0-33.0); MEAN CORPUSCULAR HGB CONC 32.1 g/dl (32.0-36.5); MEAN CORPUSCULAR VOLUME 94.5 fl (80.0-96.0); PLATELET COUNT, AUTOMATED 230 10^3/uL (150-450); RED BLOOD COUNT 3.43 10^6/uL (4.00-5.40); WHITE BLOOD COUNT 4.4 10^3/uL (4.0-10.0)
[2021-05-10 05:46] LABS: BLOOD UREA NITROGEN 12 MG/DL (7-18); CALCIUM LEVEL 8.3 MG/DL (8.8-10.2); CARBON DIOXIDE LEVEL 25 MEQ/L (21-32); CHLORIDE LEVEL 109 MEQ/L (98-107); CREATININE FOR GFR 0.65 MG/DL (0.55-1.30); GLOMERULAR FILTRATION RATE > 60.0 (>45); GLUCOSE, FASTING 110 MG/DL (70-100); POTASSIUM SERUM 3.9 MEQ/L (3.5-5.1); SODIUM LEVEL 142 MEQ/L (136-145)
[2021-05-10 06:00] VITALS: BP 149/77
[2021-05-10] MEDS: HumaLOG INSULIN (NovoLOG) PER UNIT SC SCH (08:21)
[2021-05-10] MEDS: BUDESONIDE EC 3 MG CAP (ENTOCORT EC) PO SCH (08:22)
[2021-05-10] MEDS: FERROUS SULFATE 325MG TAB PO SCH (08:22)
[2021-05-10 08:24] VITALS: BP 143/74
[2021-05-10] MEDS: PANTOPRAZOLE 40MG TAB (PROTONIX) PO SCH (08:24)
[2021-05-10] MEDS: METOPROLOL TART 25 MG TABLET PO SCH (08:24)
[2021-05-10] MEDS: ENALAPRIL MALEATE 10 MG TAB PO SCH (08:24)
[2021-05-10] MEDS: GABAPENTIN 300 MG CAP PO SCH (08:24)
[2021-05-10] MEDS: CYANOCOBALAMIN 500 MCG TAB PO SCH (08:25)
[2021-05-10] MEDS: HEPARIN SOD (PORCINE) 5000UNITS/ML 1ML VIAL/SYRINGE SC SCH (08:25)
--- NOTE | 2021-05-10 16:07 | DS.PDOC ---
Discharge Summary General Date of Admission May 07, 2021 at 21:49 Date of Discharge 05/10/2021 Primary Care Physician: Halley Garcia MD Attending Physician: VALENTÍN MIGUEL DO Discharge Summary PROCEDURES PERFORMED DURING STAY: None. ADMITTING DIAGNOSES: 1. Abdominal pain likely secondary to Crohn's disease. 2. Acute blood loss anemia 3. Lactic acidosis 4. Type 2 diabetes with peripheral neuropathy 5. Dyslipidemia 6. Essential hypertension 7. Class II obesity 8. GERD DISCHARGE DIAGNOSES: 1. Abdominal pain secondary to acute exacerbation of Crohn's disease. 2. Acute blood loss anemia, improved 3. Lactic acidosis, resolved 4. Type 2 diabetes with peripheral neuropathy 5. Dyslipidemia 6. Essential hypertension 7. Class II obesity 8. GERD COMPLICATIONS/CHIEF COMPLAINT: Anemia, Exacerbation Of Crohn's Disease. HISTORY OF PRESENT ILLNESS: Patient is a 65-year-old female presented to the emergency department for complaint of sharp mid epigastric abdominal pain that started insidiously this morning, 05/07/2021, while she was at work. Patient has a history of Crohn's disease as diagnosed thousand 17 that affects small bowel only. Patient had suboptimal control with Stelara infusions which she gets every 8 weeks and her Imuran was recently increased from 100 mg 250 mg daily. Patient also takes budesonide 3 mg daily. Her Stelara infusion and January and she is due for another the end of the month. Abdominal pain persisted since its onset earlier this morning and states that the pain is constant in nature and but does not radiate anywhere. There are some associated nausea but denies any vomiting. She states that she experienced this type of pain during prior Crohn's flareups. States she typically has 2-3 episodes of flareups a year and follows with Dr. Martinez of gastroenterology outpatient. Last bowel movement was this morning and she noticed blood in her stool but denies any diarrhea. HOSPITAL COURSE: Patient was started on budesonide 9 mg p.o. daily. Patient's Imuran was held as this may have been the cause of the patient's pancytopenia as she both had low platelets and low hemoglobin. Patient was initially transfused 1 unit of blood and we will monitor the patient's H&H however, it continued to drop to about 8.2 when the patient received a second unit of blood. On hospital day 2, patient was still having abdominal pain was not eating very much. Patient's hemoglobin had stabilized at that point. We did fans the patient's diet slowly throughout the day on 05/07/2021. In the morning of 05/10/2021, the patient was feeling better but still had some mild abdominal pain. Patient was eating some breakfast and was able to maintain adequate fluid hydration via the p.o. route. Patient was deemed ready for discharge and was discharged home on 05/10/2021. I did speak with the patient's radiology manager during the hospitalization about discontinuing the patient's Imuran as this was part of the issue causing the patient's symptomatic anemia. Patient will discontinue his medication till she follows up with gastroenterology. DISCHARGE MEDICATIONS: Please see below. ALLERGIES: Please see below. PHYSICAL EXAMINATION ON DISCHARGE: VITAL SIGNS: Please see below. General: Alert and oriented female patient who was sitting up in bed when I walked in. Patient did not appear to be in any acute distress HEENT: Normocephalic, atraumatic, moist mucous membranes. Neck: No lymphadenopathy or thyromegaly Cardiac: Regular rate and rhythm, no murmurs, normal S1, normal S2 Pulm: Clear to auscultation bilaterally. No wheezes, rhonchi, rales Abd: Mild epigastric abdominal pain, no rebound tenderness, normal bowel sounds, nondistended Ext: No edema bilateral lower extremities LABORATORY DATA: Please see below. IMAGING: CT of the abdomen and pelvis with IV contrast performed on 05/07/2021 was reported to show a mild hepatosplenomegaly. Stable inflammatory changes within the mesentery and small amount of fluid in the right paracolic gutter. Findings are consistent with the patient's history of Crohn's disease PROGNOSIS: Good ACTIVITY: As tolerated. DIET: Advance as tolerated DISCHARGE PLAN: Discharge home DISPOSITION: 01 Home, Self-Care. DISCHARGE INSTRUCTIONS: 1. Follow-up with your primary care provider within 3 to 5 days discharge. 2. Follow-up with Dr. Martinez of gastroenterology within 1 to 2 weeks of discharge. 3. Stop taking Imuran until you see gastroenterology. Continue taking budesonide. 4. Return the emergency department if symptoms worsen. ITEMS TO FOLLOWUP ON ON OUTPATIENT: 1. None. DISCHARGE CONDITION: Stable. TIME SPENT ON DISCHARGE: 35 minutes. Vital Signs/I&Os Vital Signs Date Time Temp Pulse Resp B/P (MAP) Pulse Ox O2 Delivery O2 Flow Rate FiO2 05/10/21 08:24 67 143/74 05/10/21 06:00 96.9 18 96 Room Air 05/08/21 02:00 93 I&O- Last 24 Hours up to 6 AM 05/10/21 05:59 Intake Total 360 ml Output Total 550 ml Balance -190 ml Laboratory Data Labs 24H Laboratory Tests 2 05/09/21 16:36: Bedside Glucose (Misc Panel) 121H 05/09/21 20:33: Bedside Glucose (Misc Panel) 133H 05/10/21 04:43: Nucleated Red Blood Cells % (auto) 0.0, Anion Gap 8, Glomerular Filtration Rate > 60.0, Calcium Level 8.3L CBC/BMP Laboratory Tests 05/10/21 04:43 FSBS Laboratory Tests Test 05/09/21 16:36 05/09/21 20:33 Range/Units Bedside Glucose (Misc Panel) 121 133 80-115 MG/DL Microbiology Microbiology 05/08/21 Blood Culture - Preliminary, Resulted No Growth after 48 hours. All Specime... 05/08/21 Blood Culture - Preliminary, Resulted No Growth after 48 hours. All Specime... 05/07/21 Urine Culture - Final, Complete Discharge Medications Scheduled Atorvastatin Calcium (Atorvastatin Calcium) 10 Mg Tab, 10 MG PO QHS, (Reported) Budesonide (Budesonide EC) 3 Mg Capdr...er, 9 MG PO DAILY, (Reported) Calcium Carbonate/Vitamin D3 (Calcium 600-Vit D3 400 Tablet) 1 Each Tablet, 1 TAB PO BID, (Reported) Cyanocobalamin (Vitamin B-12) (Vitamin B-12) 1,000 Mcg Tab, 1,000 MCG PO DAILY, (Reported) Dapagliflozin Propanediol (Farxiga) 5 Mg Tablet, 5 MG PO DAILY, (Reported) Enalapril Maleate (Enalapril Maleate) 20 Mg Tab, 20 MG PO DAILY, (Reported) Ferrous Sulfate (Ferrous Sulfate) 325 Mg Tab, 325 MG PO BID, (Reported) Gabapentin (Gabapentin) 300 Mg Cap, 300 MG PO TID, (Reported) Hydrochlorothiazide (Hydrochlorothiazide) 25 Mg Tablet, 25 MG PO DAILY, (Reported) Magnesium Oxide (Magnesium Oxide) 250 Mg Tab, 250 MG PO DAILY, (Reported) Metformin HCl (Metformin HCl) 1,000 Mg Tablet, 1,000 MG PO BID, (Reported) Metoprolol Tartrate (Metoprolol Tartrate) 25 Mg Tablet, 25 MG PO BID, (Reported) Pantoprazole Sodium (Pantoprazole Sodium) 40 Mg Tab, 40 MG PO DAILY, (Reported) Sitagliptin Phosphate (Januvia) 100 Mg Tablet, 100 MG PO DAILY, (Reported) Ustekinumab (Stelara) 90 Mg/1 Ml Syringe, 90 MG SC ASDIRECTED, (Reported) EVERY 8 WEEKS, NEXT INFUSION 05/11/21 Scheduled PRN Ondansetron HCl (Ondansetron HCl) 4 Mg Tablet, 4 MG PO Q12H PRN for NAUSEA, (Reported) Allergies Coded Allergies: ciprofloxacin (Verified Allergy, Intermediate, rash, 01/25/21) indomethacin (Verified Allergy, Intermediate, rash, 01/25/21) infliximab (Verified Allergy, Unknown, 104 temperature, 01/25/21) rofecoxib (Verified Allergy, Unknown, CHF, 01/25/21) tomato (Verified Allergy, Unknown, rash, 01/25/21) diazepam (Verified Adverse Reaction, Mild, agitation, 01/25/21) VALENTÍN MIGUEL DO May 10, 2021 16:06
[2021-05-10 17:09] LABS: SOLUBLE TRANSFERRIN RECEPTOR 32.6 nmol/L (12.2-27.3)
== END 2021-05-10 09:40 | disposition home or self-care (01) | DRG 386 ==
LOC: M ED 14:31 → M ED INP 21:49 → ENRESERV 05-08 00:55 → M MS5PR 05-08 01:30
PROVIDERS: ADMIT Internal Medicine; ATTEND Family Medicine
DX: K50.00 Crohn's disease of small intestine without complications (principal); D62 Acute posthemorrhagic anemia; E87.2 Acidosis; E11.42 Type 2 diabetes mellitus with diabetic polyneuropathy; E78.5 Hyperlipidemia, unspecified; I10 Essential (primary) hypertension; E66.9 Obesity, unspecified; K21.9 Gastro-esophageal reflux disease without esophagitis; Z68.39 Body mass index [BMI] 39.0-39.9, adult; Z87.891 Personal history of nicotine dependence; Z88.1 Allergy status to other antibiotic agents; Z88.8 Allergy status to other drugs, medicaments and biological substances; Z20.822 Contact with and (suspected) exposure to COVID-19

== ENCOUNTER → 2021-05-23 | Outpatient (CLI) | payer MEDICARE ==
[~2021-05-23] MED LIST changes: +AZAT50TA2 PO; +FARX1TAB5 PO; +JANU100T PO; +METO25TA4 PO
--- NOTE | 2021-05-23 13:16 | REPMRS ---
Patient History The patient states she has not had a clinical breast exam in over a year. Patient states no breast complaints today. Patient has signed MRS History Sheet. Digital Woman Screen Mammo: May 23, 2021 - Exam #: [id number] Bilateral CC and MLO view(s) were taken. Technologist: Luz Randolph, Second Worker Prior study comparison: April 21, 2020, bilateral screening 3D/tomosynthesis, performed at [facility]. November 25, 2018, bilateral screening 3D/tomosynthesis, performed at [facility]. November 07, 2017, bilateral digital mammo screening bilat, performed at [facility]. FINDINGS: There are scattered fibroglandular densities. The Volpara volumetric breast density category is:B. There has been no change in the appearance of the mammogram from the prior studies. There is a mild amount of scattered fibroglandular density which is fairly symmetric. There is no interval development of dominant mass, architectural distortion, or grouped microcalcification suggestive of malignancy. 3-D tomosynthesis shows no additional findings. Assessment: BI-RADS/ACR category 1 mammogram. Negative Mammogram. Recommendation Routine screening mammogram of both breasts in 1 year (for women over age 40). This patient's [facility] Lifetime Breast Cancer Risk is estimated at 5.7 %. This mammogram was interpreted with the aid of an FDA-approved computer-aided dectection system. Electronically Signed By: Doug Westfall MD 05/23/21 [id number]
== END ==
LOC: M WHC 11:22
PROVIDERS: ATTEND Family Medicine
DX: Z12.31 Encounter for screening mammogram for malignant neoplasm of breast (principal)

== ENCOUNTER → 2021-05-23 | Outpatient (CLI) | payer MEDICARE ==
[2021-05-23 14:18] LABS: BASO % 0.7 % (0.0-1.0); EOS % 0.7 % (0.0-3.0); HEMATOCRIT 30.7 % (36.0-47.0); HEMOGLOBIN 10.1 g/dl (12.0-15.5); LYMPH # 0.9 10^3/uL (1.5-5.0); LYMPH % 14.7 % (24.0-44.0); MEAN CORPUSCULAR HGB CONC 32.9 g/dl (32.0-36.5); MEAN CORPUSCULAR VOLUME 94.2 fl (80.0-96.0); MONO # 0.5 10^3/uL (0.0-0.8); MONO % 7.8 % (2.0-8.0); NEUTROPHILS # 4.3 10^3/uL (1.5-8.5); NEUTROPHILS % 75.2 % (36.0-66.0); PLATELET COUNT, AUTOMATED 304 10^3/uL (150-450); RED BLOOD COUNT 3.26 10^6/uL (4.00-5.40); WHITE BLOOD COUNT 5.8 10^3/uL (4.0-10.0)
[2021-05-23 16:25] LABS: ALBUMIN 3.4 GM/DL (3.2-5.2); ALT/SGPT 26 U/L (12-78); BILIRUBIN,TOTAL 0.6 MG/DL (0.2-1.0); BLOOD UREA NITROGEN 18 MG/DL (7-18); CALCIUM LEVEL 9.7 MG/DL (8.8-10.2); CARBON DIOXIDE LEVEL 31 MEQ/L (21-32); CHLORIDE LEVEL 102 MEQ/L (98-107); GLOMERULAR FILTRATION RATE > 60.0 (>45); GLUCOSE, FASTING 119 MG/DL (70-100); IRON (FE) 54 UG/DL (50-170); PERCENT SATURATION 13.4 % (13.2-45.0); POTASSIUM SERUM 4.8 MEQ/L (3.5-5.1); SODIUM LEVEL 138 MEQ/L (136-145); TOTAL IRON BINDING CAPACITY 403 UG/DL (250-450); TOTAL PROTEIN 6.3 GM/DL (6.4-8.2); VITAMIN B12 LEVEL 643 PG/ML
[2021-05-23 16:26] LABS: FOLATE 17.2 NG/ML
== END ==
LOC: M LAB 12:32
PROVIDERS: ATTEND Internal Medicine Gastroenterology
DX: K50.018 Crohn's disease of small intestine with other complication (principal); Z12.31 Encounter for screening mammogram for malignant neoplasm of breast; D50.9 Iron deficiency anemia, unspecified; E11.69 Type 2 diabetes mellitus with other specified complication

== ENCOUNTER → 2021-05-23 | Outpatient (CLI) | payer MEDICARE ==
[2021-05-23 14:14] LABS: BASO % 0.5 % (0.0-1.0); EOS # 0.1 10^3/uL (0.0-0.5); EOS % 0.8 % (0.0-3.0); HEMATOCRIT 30.6 % (36.0-47.0); HEMOGLOBIN 10.1 g/dl (12.0-15.5); LYMPH # 0.8 10^3/uL (1.5-5.0); LYMPH % 14.2 % (24.0-44.0); MEAN CORPUSCULAR VOLUME 93.9 fl (80.0-96.0); MONO # 0.4 10^3/uL (0.0-0.8); MONO % 7.4 % (2.0-8.0); NEUTROPHILS # 4.5 10^3/uL (1.5-8.5); NEUTROPHILS % 76.4 % (36.0-66.0); PLATELET COUNT, AUTOMATED 304 10^3/uL (150-450); RED BLOOD COUNT 3.26 10^6/uL (4.00-5.40); WHITE BLOOD COUNT 5.9 10^3/uL (4.0-10.0)
[2021-05-23 16:28] LABS: ALBUMIN 3.4 GM/DL (3.2-5.2); ALT/SGPT 27 U/L (12-78); BILIRUBIN,TOTAL 0.7 MG/DL (0.2-1.0); BLOOD UREA NITROGEN 17 MG/DL (7-18); CALCIUM LEVEL 9.8 MG/DL (8.8-10.2); CARBON DIOXIDE LEVEL 31 MEQ/L (21-32); CHLORIDE LEVEL 102 MEQ/L (98-107); GLOMERULAR FILTRATION RATE > 60.0 (>45); GLUCOSE, FASTING 117 MG/DL (70-100); POTASSIUM SERUM 4.8 MEQ/L (3.5-5.1); SODIUM LEVEL 138 MEQ/L (136-145); TOTAL PROTEIN 6.2 GM/DL (6.4-8.2)
[2021-05-23 18:39] LABS: HEMOGLOBIN A1c 6.1 %
== END ==
LOC: M LAB 12:29
PROVIDERS: ATTEND Nurse Practitioner Family
DX: D50.9 Iron deficiency anemia, unspecified (principal); E11.69 Type 2 diabetes mellitus with other specified complication

== ENCOUNTER → 2021-06-08 | Outpatient (CLI) | payer MEDICARE ==
[2021-06-08 16:08] LABS: BASO % 0.6 % (0.0-1.0); EOS # 0.1 10^3/uL (0.0-0.5); EOS % 1.1 % (0.0-3.0); HEMATOCRIT 33.6 % (36.0-47.0); HEMOGLOBIN 10.7 g/dl (12.0-15.5); LYMPH # 1.1 10^3/uL (1.5-5.0); LYMPH % 17.4 % (24.0-44.0); MEAN CORPUSCULAR HEMOGLOBIN 30.7 pg (27.0-33.0); MEAN CORPUSCULAR HGB CONC 31.8 g/dl (32.0-36.5); MEAN CORPUSCULAR VOLUME 96.3 fl (80.0-96.0); MONO # 0.6 10^3/uL (0.0-0.8); MONO % 8.9 % (2.0-8.0); NEUTROPHILS # 4.7 10^3/uL (1.5-8.5); NEUTROPHILS % 71.4 % (36.0-66.0); PLATELET COUNT, AUTOMATED 240 10^3/uL (150-450); RED BLOOD COUNT 3.49 10^6/uL (4.00-5.40); WHITE BLOOD COUNT 6.6 10^3/uL (4.0-10.0)
[2021-06-08 16:42] LABS: ERYTHROCYTE SEDIMENTATION RATE 16 mm/hr (0-30)
[2021-06-08 16:59] LABS: ALBUMIN 3.4 GM/DL (3.2-5.2); ALT/SGPT 31 U/L (12-78); BILIRUBIN,TOTAL 0.7 MG/DL (0.2-1.0); BLOOD UREA NITROGEN 11 MG/DL (7-18); CARBON DIOXIDE LEVEL 33 MEQ/L (21-32); CHLORIDE LEVEL 102 MEQ/L (98-107); CREATININE FOR GFR 0.93 MG/DL (0.55-1.30); GLOMERULAR FILTRATION RATE > 60.0 (>45); GLUCOSE, FASTING 128 MG/DL (70-100); POTASSIUM SERUM 4.3 MEQ/L (3.5-5.1); SODIUM LEVEL 140 MEQ/L (136-145); TOTAL PROTEIN 6.4 GM/DL (6.4-8.2)
== END ==
LOC: M LAB 15:07
PROVIDERS: ATTEND Internal Medicine Gastroenterology
DX: K50.018 Crohn's disease of small intestine with other complication (principal)

== ENCOUNTER 2021-06-20 10:12 | Emergency (ER) | payer MEDICARE ==
[~2021-06-20] VITALS: Ht 144.8 cm; Wt 82.7 kg
--- OUTSIDE RECORDS SUMMARY | 2021-06-20 10:20 | CCD | Continuity of Care Document ---
Author Author Briseyda FRIEDMAN [facility] Organization Unknown Address [address] [place] [address] Phone [phone] Care Team Providers Care Information Technology Associate Name Role Phone [facility] [phone] Problems Active Problems Provider Date Essential hypertension Britany Napoles PA Onset: 0 03/07/2021 Hyperlipidemia Britany Napoles PA Onset: 02/16 Crohn's disease Britany Napoles PA Onset: 02/16 Iron deficiency anemia Britany Napoles PA Onset: 0 03/07/2021 Social History Type Date Description Comments Sex Unknown Tobacco Use Start: Unknown Never Used Smokeless Tobacco ETOH Use Denies alcohol use Tobacco Use Start: Unknown End: Unknown Patient is a former smoker smoked occasionally Recreational Drug Use Denies Drug Use Smoking Status Reviewed: 05/15/21 Patient is a former smoker sm oked occasionally Exercise Type/Frequency Does not exercise Tattoo/Piercing Pierced ears Sun Exposure Uses sunscreen Seat Belt/Car Seat Always uses seat belt Bike Helmet Never Does not bike ri de Smoke Alarms Yes Smoke Alarms Carbon Monoxide Detector: Yes Allergies and adverse reactions Active Allergies Criticality Reaction | Severity Comments Date Valium Unable to assess criticality makes her fe el very hyper 06/22/2015 Vioxx Unable to assess criticality CHF 06/22/2015 Indocin Unable to assess criticality raised her B /P 06/22/2015 Cipro Unable to assess criticality hives 06/22/2015 Tomatoes Unable to assess criticality rash 06/22/2015 seasonal Unable to assess criticality Spring and S ummer 06/22/2015 Medications Active Medications SIG Qnty Indications Ordering Provide r Date Onetouch Ultra Strips Use To Check Blood Sugar Three Times A Day 300units Halley Garcia M.D. 05/12/2021 Farxiga 5mg Tablets take one tablet by mouth every day in the morning 90tabs Halley Garcia M.D. 03/07/2021 Januvia 100mg Tablets take one tablet by mouth every day 90tabs E11.69 Paula Friedman FNP 05/31/2020 Glucometer Kit Machine use as directed to test glucose once daily randomly 1units E11.69 Halley Garcia M.D. 01/31/2020 Stelara 90mg/ml Soln Prefill Syrin ge given by injection every [address] Martinez Unknown 01/26/2020 Enalapril Maleate 20mg Tablets take one tablet by mouth daily 90tabs Paula Friedman FNP 01/[address] [place] 1 capsules by mouth three times a day Unknown 01/26/20 20 Ondansetron HCL 4mg Tablets one tab by mouth every 6 hour as needed for nausea Unknown 08/05/2019 Onetouch Delica Plus Lancets Extra Fine 33G Plus 33G Misc Once Daily as Directed 100units Halley Garcia M.D. 06/04/2019 Ra Black Cohosh 200mg Capsules 1 cap po bid Unknown 04/21/2019 Simethicone 80mg Chewtabs 1 tab by mouth tid prn Unknown 10/01/2018 Calcium Citrate/Vitamin D3 315/250 Tablets 2 by mouth twice a day 360tabs Unknown 10/01 Magnesium Oxide 250mg Tablet take one tablet by mouth every day 30tabs Paula Friedman FNP 0 01/29/2018 Pantoprazole Sodium 40mg Tablets D R Take One Tablet By Mouth Every Day 90tabs Halley Garcia M.D. 06/26/2016 Gabapentin 300mg Capsules Take One Capsule By Mouth Three Times A Day 270caps M12.9 Halley Garcia M .D. 05/07/2016 One Touch Test Strips Ultra Misc use to check blood sugar 3 times a day 360unremi [id number] Halley Garcia M.D. 02/23/2016 Atorvastatin Calcium 10mg Tablets Take One Tablet By Mouth Every Day 90tabs Halley Garcia M. D. 10/23/2015 Vitamin D 3 1000Iu Capsules 1 by mouth every day Unknown Ferrous Sulfate 325(65Fe) mg Table ts 1 by mouth bid Unknown Vitamin B-12 1000mcg Tablets 1 tabs by mouth every day Unknown Metformin HCL 1000mg Tablets Take One Tablet By Mouth Twice A Day With Meals For Diabetes 180taHalley Morris M.D. Hydrochlorothiazide 25mg Tablets Take One Tablet By Mouth Every Day 90tabs Halley Garcia M. D. Voltaren 1% Gel apply a pea size amount to the affected low back up to 4 times a day Unknow n Tylenol 325mg Capsules one-two tabs by mouth every 4-6 hour daily as needed for pain Un known Metoprolol Tartrate 25mg Tablets take one tablet by mouth twice a day Unknown Immunizations CPT Code Status Date Vaccine Lot # [id number] Given 05/08/2021 Influenza Virus Vaccine, Dandre drivalent,multidose vial [id number] Given 05/08/2021 Pneumococcal Vaccine U-Flu Given 08/20/2020 Influenza,Unspecified [id number] Given 08/09/2019 Prevnar 13 [id number] 85740 Given 06/21/2019 Influenza Virus Vaccine, Dandre drivalent,multidose vial 61038 Given 07/29/2018 Influenza Virus, quadravalent, age 6 Mo and up,Preservative free [id number] [id number] Given 05/07/2016 Influenza Vaccination [id number] 02495 Given 06/22/2015 Influenza Vaccination/preser vative free [id number] 05469 Given 02/24/2014 Zostavax U-HepB Given 11/17/2012 Hepatitis B,Unspecified U-HepB Given 07/07/2012 Hepatitis B,Unspecified 01112 Given 05/12/2012 Influenza Vaccination U-HepB Given 03/27/2012 Hepatitis B,Unspecified 22093 Given 05/02/2011 Influenza Vaccination [id number] Given 05/29/2010 Influenza Vaccination 17333 Given 04/13/2010 Pneumococcal Vaccine [id number] Given 04/13/2010 Boostrix (Tdap) Tetnus, Diphtheria Toxoids & Acellular Pertussis Vital Signs Date Vital Result Comment 06/06/2021 9:48am BP Systolic 134 mmHg BP Diastolic 75 mmHg Heart Rate 81 /min Body Temperature 99.0 F Respiratory Rate 18 /min Height 57 inches 4'9" Weight 183.50 lb O2 % BldC Oximetry 97 % [place] Body Weight 100 lb BMI (Body Mass Index) 39.7 kg/m2 05/15/2021 1:30pm BP Systolic 137 mmHg BP Diastolic 67 mmHg Heart Rate 94 /min Body Temperature 98.7 F Respiratory Rate 20 /min Height 57.25 inches 4'9.25" Weight 182.25 lb O2 % BldC Oximetry 98 % [place] Body Weight 100 lb BMI (Body Mass Index) 39.1 kg/m2 Results Test Acquired Date Facility Test Result H/L Range Note Laboratory test finding 06/08/2021 [facility] [place], [place] [id number] [phone] Erythrocyte Sedimentation Rate 16 mm/hr Normal 0 -30 Comprehensive Metabolic Profil 06/08/2021 Patient S ervice [place], [place] [id number] [phone] Glucose, Fasting 128 mg/dL High 70-100 Blood Urea Nitrogen 11 mg/dL Normal 7-18 Creatinine For GFR 0.93 mg/dL Normal 0.55-1.30 Glomerular Filtration Rate > 60.0 Normal >45 1 Sodium Level 140 mEq/L Normal 136-145 Potassium Serum 4.3 mEq/L Normal 3.5-5.1 Chloride Level 102 mEq/L Normal 98-107 Carbon Dioxide Level 33 mEq/L High 21-32 Anion Gap 5 mEq/L Low 8-16 Calcium Level 9.0 mg/dL Normal 8.8-10.2 Ast/Sgot 29 U/L Normal 7-37 Alt/SGPT 31 U/L Normal 12-78 Alkaline Phosphatase 80 U/L Normal 45-117 Bilirubin,Total 0.7 mg/dL Normal 0.2-1.0 Total Protein 6.4 GM/DL Normal 6.4-8.2 Albumin 3.4 GM/DL Normal 3.2-5.2 Albumin/Globulin Ratio 1.1 Low 1.2-2.2 CBC With Differential 06/08/2021 [place] [address] [phone] White Blood Count 6.6 10 Normal 4.0-10.0 Red Blood Count 3.49 10 Low 4.00-5.40 Hemoglobin 10.7 g/dL Low 12.0-15.5 Hematocrit 33.6 % Low 36.0-47.0 Mean Corpuscular Volume 96.3 fl High 80.0-96.0 Mean Corpuscular Hemoglobin 30.7 pg Normal 27.0-33.0 Mean Corpuscular HGB Conc 31.8 g/dL Low 32.0-36.5 Red Cell Distribution Width 15.5 % High 11.5-14.5 Platelet Count, Automated 240 10 Normal 150-450 Neutrophils % 71.4 % High 36.0-66.0 Lymph % 17.4 % Low 24.0-44.0 Yates % 8.9 % High 2.0-8.0 Eos % 1.1 % Normal 0.0-3.0 Baso % 0.6 % Normal 0.0-1.0 Immature Granulocyte % 0.6 % Normal 0-3.0 Nucleated Red Blood Cell % 0.0 % Normal 0-0 Neutrophils # 4.7 10 Normal 1.5-8.5 Lymph # 1.1 10 Low 1.5-5.0 Yates # 0.6 10 Normal 0.0-0.8 Eos # 0.1 10 Normal 0.0-0.5 Baso # 0.0 10 Normal 0.0-0.2 Vitamin B12 & Folate 05/23/[address] [place] [address] [phone] Vitamin B12 Level 643 pg/mL Normal 2 Folate 17.2 NG/ML Normal 3 Total Iron Binding Capacit 05/23/2021 [place] [address] [phone] Iron (Fe) 54 g/dL Normal 50-170 Total Iron Binding Capacity 403 g/dL Normal 250-450 Percent Saturation 13.4 % Normal 13.2-45.0 Comprehensive Metabolic Profil 05/23/2021 Patient [facility] [place] [address] [phone] Glucose, Fasting 119 mg/dL High 70-100 Blood Urea Nitrogen 18 mg/dL Normal 7-18 Creatinine For GFR 0.80 mg/dL Normal 0.55-1.30 Glomerular Filtration Rate > 60.0 Normal >45 4 Sodium Level 138 mEq/L Normal 136-145 Potassium Serum 4.8 mEq/L Normal 3.5-5.1 Chloride Level 102 mEq/L Normal 98-107 Carbon Dioxide Level 31 mEq/L Normal 21-32 Anion Gap 5 mEq/L Low 8-16 Calcium Level 9.7 mg/dL Normal 8.8-10.2 Ast/Sgot 20 U/L Normal 7-37 Alt/SGPT 26 U/L Normal 12-78 Alkaline Phosphatase 66 U/L Normal 45-117 Bilirubin,Total 0.6 mg/dL Normal 0.2-1.0 Total Protein 6.3 GM/DL Low 6.4-8.2 Albumin 3.4 GM/DL Normal 3.2-5.2 Albumin/Globulin Ratio 1.2 Normal 1.2-2.2 Hemoglobin A1c 05/23/2021 [facility] nter [phone] Hemoglobin A1c 6.1 % Normal 5 Estimated Average Glucose 128 mg/dL High 60-110 CBC With Differential 05/23/2021 [facility] [phone] White Blood Count 5.9 10 Normal 4.0-10.0 Red Blood Count 3.26 10 Low 4.00-5.40 Hemoglobin 10.1 g/dL Low 12.0-15.5 Hematocrit 30.6 % Low 36.0-47.0 Mean Corpuscular Volume 93.9 fl Normal 80.0-96.0 Mean Corpuscular Hemoglobin 31.0 pg Normal 27.0-33.0 Mean Corpuscular HGB Conc 33.0 g/dL Normal 32.0-36.5 Red Cell Distribution Width 16.2 % High 11.5-14.5 Platelet Count, Automated 304 10 Normal 150-450 Neutrophils % 76.4 % High 36.0-66.0 Lymph % 14.2 % Low 24.0-44.0 Yates % 7.4 % Normal 2.0-8.0 Eos % 0.8 % Normal 0.0-3.0 Baso % 0.5 % Normal 0.0-1.0 Immature Granulocyte % 0.7 % Normal 0-3.0 Nucleated Red Blood Cell % 0.0 % Normal 0-0 Neutrophils # 4.5 10 Normal 1.5-8.5 Lymph # 0.8 10 Low 1.5-5.0 Yates # 0.4 10 Normal 0.0-0.8 Eos # 0.1 10 Normal 0.0-0.5 Baso # 0.0 10 Normal 0.0-0.2 Comprehensive Metabolic Profil 05/23/2021 [facility] [phone] Glucose, Fasting 117 mg/dL High 70-100 Blood Urea Nitrogen 17 mg/dL Normal 7-18 Creatinine For GFR 0.80 mg/dL Normal 0.55-1.30 Glomerular Filtration Rate > 60.0 Normal >45 6 Sodium Level 138 mEq/L Normal 136-145 Potassium Serum 4.8 mEq/L Normal 3.5-5.1 Chloride Level 102 mEq/L Normal 98-107 Carbon Dioxide Level 31 mEq/L Normal 21-32 Anion Gap 5 mEq/L Low 8-16 Calcium Level 9.8 mg/dL Normal 8.8-10.2 Ast/Sgot 22 U/L Normal 7-37 Alt/SGPT 27 U/L Normal 12-78 Alkaline Phosphatase 67 U/L Normal 45-117 Bilirubin,Total 0.7 mg/dL Normal 0.2-1.0 Total Protein 6.2 GM/DL Low 6.4-8.2 Albumin 3.4 GM/DL Normal 3.2-5.2 Albumin/Globulin Ratio 1.2 Normal 1.2-2.2 CBC With Differential 05/23/2021 [place] [address] [phone] White Blood Count 5.8 10 Normal 4.0-10.0 Red Blood Count 3.26 10 Low 4.00-5.40 Hemoglobin 10.1 g/dL Low 12.0-15.5 Hematocrit 30.7 % Low 36.0-47.0 Mean Corpuscular Volume 94.2 fl Normal 80.0-96.0 Mean Corpuscular Hemoglobin 31.0 pg Normal 27.0-33.0 Mean Corpuscular HGB Conc 32.9 g/dL Normal 32.0-36.5 Red Cell Distribution Width 16.0 % High 11.5-14.5 Platelet Count, Automated 304 10 Normal 150-450 Neutrophils % 75.2 % High 36.0-66.0 Lymph % 14.7 % Low 24.0-44.0 Yates % 7.8 % Normal 2.0-8.0 Eos % 0.7 % Normal 0.0-3.0 Baso % 0.7 % Normal 0.0-1.0 Immature Granulocyte % 0.9 % Normal 0-3.0 Nucleated Red Blood Cell % 0.0 % Normal 0-0 Neutrophils # 4.3 10 Normal 1.5-8.5 Lymph # 0.9 10 Low 1.5-5.0 Yates # 0.5 10 Normal 0.0-0.8 Eos # 0.0 10 Normal 0.0-0.5 Baso # 0.0 10 Normal 0.0-0.2 Ua W/ Reflex To Culture 05/07/2021 [place] [address] [phone] Appearance, Urine RFX CLEAR Normal Clear Color, Urine RFX YELLOW Normal Yellow PH,Urine RFX 8.0 units Normal 5.0-9.0 Specific [place] Ur Auto RFX 1.048 Normal 1.002-1.035 Protein, Urine Auto RFX NEGATIVE mg/dL Normal Negative Glucose, Urine (Ua) Auto RFX 2+ mg/dL High Negative Ketone, Urine Auto RFX NEGATIVE mg/dL Normal Negative Urobilinogen, Urine Auto RFX 0.2 mg/dL Normal 0.0-2.0 Bilirubin, Urine Auto RFX NEGATIVE Normal Negative Nitrite, Urine Auto RFX NEGATIVE Normal Negative Leukocyte Esterase Ur Auto RFX TRACE High Negative Blood, Urine Blood RFX NEGATIVE Normal Negative WBC, Urine Auto RFX 1 /HPF Normal 0-3 RBC, Urine Auto RFX 2 /HPF Normal 0-3 Bacteria, Urine Auto RFX NEGATIVE Normal Negative Squam Epithelial Cell Ur Aurfx 3 /HPF Normal 0-6 Hyaline Cast, Urine Auto RFX 0 /LPF Normal 0-1 Laboratory test finding 05/07/2021 [place] [address] [phone] Lipase 115 U/L Normal 73-393 Lactic Acid Sepsis Protocol 2.7 mmol/L Critical high 0.4-2.0 7 Liver Profile 05/07/2021 [place] [address] [phone] Ast/Sgot 13 U/L Normal 7-37 Alt/SGPT 15 U/L Normal 12-78 Alkaline Phosphatase 66 U/L Normal 45-117 Bilirubin,Total 0.7 mg/dL Normal 0.2-1.0 Bilirubin,Direct 0.2 mg/dL Normal 0.0-0.2 Total Protein 6.0 GM/DL Low 6.4-8.2 Albumin 3.3 GM/DL Normal 3.2-5.2 Albumin/Globulin Ratio 1.2 Normal 1.2-2.2 Prothrombin Time/Inr 05/07/[address] [place] [address] [phone] Prothrombin Time 12.9 seconds Normal 12.7-14.5 Inr 0.93 Normal 8 Istat Chem8+ Panel 05/07/2021 [place] [address] [phone] iSTAT HCT 22.0 % Low 38.0-51.0 iSTAT Glucose 120 mg/dL High 70-105 iSTAT Sodium 138 mEq/L Normal 136-145 iSTAT Potassium 3.9 mEq/L Normal 3.5-5.1 iSTAT CA++ 4.7 mg/dL Normal 4.5-5.3 iSTAT Chloride 100 mEq/L Normal 98-109 iSTAT Co2 26.0 MM/L Normal 23.0-27.0 iSTAT BUN 11 mg/dL Normal 8-26 iSTAT Creatinine 0.9 mg/dL Normal 0.6-1.3 CBC With Differential 05/07/2021 [place] [address] [phone] White Blood Count 6.6 10 Normal 4.0-10.0 Red Blood Count 2.48 10 Low 4.00-5.40 Hemoglobin 7.6 g/dL Low 12.0-15.5 Hematocrit 24.1 % Low 36.0-47.0 Mean Corpuscular Volume 97.2 fl High 80.0-96.0 Mean Corpuscular Hemoglobin 30.6 pg Normal 27.0-33.0 Mean Corpuscular HGB Conc 31.5 g/dL Low 32.0-36.5 Red Cell Distribution Width 15.9 % High 11.5-14.5 Platelet Count, Automated 307 10 Normal 150-450 Neutrophils % 78.5 % High 36.0-66.0 Lymph % 14.1 % Low 24.0-44.0 Yates % 5.5 % Normal 2.0-8.0 Eos % 1.1 % Normal 0.0-3.0 Baso % 0.2 % Normal 0.0-1.0 Immature Granulocyte % 0.6 % Normal 0-3.0 Nucleated Red Blood Cell % 0.0 % Normal 0-0 Neutrophils # 5.2 10 Normal 1.5-8.5 Lymph # 0.9 10 Low 1.5-5.0 Yates # 0.4 10 Normal 0.0-0.8 Eos # 0.1 10 Normal 0.0-0.5 Baso # 0.0 10 Normal 0.0-0.2 Laboratory test finding 05/07/2021 [facility] [place], [place] [id number] [phone] Partial Thromboplastin Time 20.9 seconds Low 25 .9-37.0 CBC With Differential 04/07/2021 Patient Service [place], [place] [address] [phone] White Blood Count 5.9 10 Normal 4.0-10.0 Red Blood Count 3.04 10 Low 4.00-5.40 Hemoglobin 9.3 g/dL Low 12.0-15.5 Hematocrit 28.9 % Low 36.0-47.0 Mean Corpuscular Volume 95.1 fl Normal 80.0-96.0 Mean Corpuscular Hemoglobin 30.6 pg Normal 27.0-33.0 Mean Corpuscular HGB Conc 32.2 g/dL Normal 32.0-36.5 Red Cell Distribution Width 14.7 % High 11.5-14.5 Platelet Count, Automated 271 10 Normal 150-450 Neutrophils % 70.9 % High 36.0-66.0 Lymph % 18.2 % Low 24.0-44.0 Yates % 7.8 % Normal 2.0-8.0 Eos % 1.7 % Normal 0.0-3.0 Baso % 0.7 % Normal 0.0-1.0 Immature Granulocyte % 0.7 % Normal 0-3.0 Nucleated Red Blood Cell % 0.0 % Normal 0-0 Neutrophils # 4.2 10 Normal 1.5-8.5 Lymph # 1.1 10 Low 1.5-5.0 Yates # 0.5 10 Normal 0.0-0.8 Eos # 0.1 10 Normal 0.0-0.5 Baso # 0.0 10 Normal 0.0-0.2 Comprehensive Metabolic Profil 04/07/[address]21 Patient S [place], [place] [id number] [phone] Glucose, Fasting 111 mg/dL High 70-100 Blood Urea Nitrogen 14 mg/dL Normal 7-18 Creatinine For GFR 0.75 mg/dL Normal 0.55-1.30 Glomerular Filtration Rate > 60.0 Normal >45 9 Sodium Level 140 mEq/L Normal 136-145 Potassium Serum 4.1 mEq/L Normal 3.5-5.1 Chloride Level 104 mEq/L Normal 98-107 Carbon Dioxide Level 31 mEq/L Normal 21-32 Anion Gap 5 mEq/L Low 8-16 Calcium Level 9.3 mg/dL Normal 8.8-10.2 Ast/Sgot 20 U/L Normal 7-37 Alt/SGPT 19 U/L Normal 12-78 Alkaline Phosphatase 66 U/L Normal 45-117 Bilirubin,Total 0.7 mg/dL Normal 0.2-1.0 Total Protein 6.0 GM/DL Low 6.4-8.2 Albumin 3.4 GM/DL Normal 3.2-5.2 Albumin/Globulin Ratio 1.3 Normal 1.2-2.2 Hemoglobin A1c 03/04/2021 [facility] nter [phone] Hemoglobin A1c 7.7 % Normal 10 Estimated Average Glucose 174 mg/dL High 60-110 Lipid Panel 03/04/2021 [facility] nter [phone] Triglycerides Level 366 mg/dL High <150 Cholesterol Level 165 mg/dL Normal <200 HDL Cholesterol 40 mg/dL Normal >40 LDL Cholesterol 52 mg/dL Normal <100 Non-HDL-C 125 mg/dL Normal Cholesterol Risk Ratio 4.125 Normal <5 Microalbumin Random 03/04/2021 [facility] nter [phone] Creatinine, Urine 77.3 mg/dL Normal Malb Urine Siemens 13.2 mg/L Normal Higinio/Creat Ratio 17.0 MCG/MG Normal 0.0-30.0 11 Comprehensive Metabolic Profil 03/04/2021 [facility] [phone] Glucose, Fasting 161 mg/dL High 70-100 Blood Urea Nitrogen 11 mg/dL Normal 7-18 Creatinine For GFR 0.83 mg/dL Normal 0.55-1.30 Glomerular Filtration Rate > 60.0 Normal >45 1 2 Sodium Level 140 mEq/L Normal 136-145 Potassium Serum 3.6 mEq/L Normal 3.5-5.1 Chloride Level 103 mEq/L Normal 98-107 Carbon Dioxide Level 29 mEq/L Normal 21-32 Anion Gap 8 mEq/L Normal 8-16 Calcium Level 8.9 mg/dL Normal 8.8-10.2 Ast/Sgot 27 U/L Normal 7-37 Alt/SGPT 27 U/L Normal 12-78 Alkaline Phosphatase 85 U/L Normal 45-117 Bilirubin,Total 0.8 mg/dL Normal 0.2-1.0 Total Protein 6.7 GM/DL Normal 6.4-8.2 Albumin 3.6 GM/DL Normal 3.2-5.2 Albumin/Globulin Ratio 1.2 Normal 1.2-2.2 Laboratory test finding 01/25/2021 [place] [address] [phone] Lactic Acid Sepsis Protocol 3.3 mmol/L Critical high 0 .4-2.0 13 Istat Chem8+ Panel 01/25/2021 Patient Service [place], [place] [id number] [phone] iSTAT HCT 36.0 % Low 38.0-51.0 iSTAT Glucose 143 mg/dL High 70-105 iSTAT Sodium 138 mEq/L Normal 136-145 iSTAT Potassium 4.2 mEq/L Normal 3.5-5.1 iSTAT CA++ 4.7 mg/dL Normal 4.5-5.3 iSTAT Chloride 96 mEq/L Low 98-109 iSTAT Co2 29.0 MM/L High 23.0-27.0 iSTAT BUN 10 mg/dL Normal 8-26 iSTAT Creatinine 0.7 mg/dL Normal 0.6-1.3 CBC With Differential 01/25/2021 [place] [address] [phone] White Blood Count 9.2 10 Normal 4.0-10.0 Red Blood Count 3.82 10 Low 4.00-5.40 Hemoglobin 11.6 g/dL Low 12.0-15.5 Hematocrit 35.7 % Low 36.0-47.0 Mean Corpuscular Volume 93.5 fl Normal 80.0-96.0 Mean Corpuscular Hemoglobin 30.4 pg Normal 27.0-33.0 Mean Corpuscular HGB Conc 32.5 g/dL Normal 32.0-36.5 Red Cell Distribution Width 13.0 % Normal 11.5-14.5 Platelet Count, Automated 280 10 Normal 150-450 Neutrophils % 80.0 % High 36.0-66.0 Lymph % 11.8 % Low 24.0-44.0 Yates % 6.1 % Normal 2.0-8.0 Eos % 0.9 % Normal 0.0-3.0 Baso % 0.5 % Normal 0.0-1.0 Immature Granulocyte % 0.7 % Normal 0-3.0 Nucleated Red Blood Cell % 0.0 % Normal 0-0 Neutrophils # 7.4 10 Normal 1.5-8.5 Lymph # 1.1 10 Low 1.5-5.0 Yates # 0.6 10 Normal 0.0-0.8 Eos # 0.1 10 Normal 0.0-0.5 Baso # 0.1 10 Normal 0.0-0.2 Prothrombin Time/Inr 01/25/[address] [facility] [place] [address] [phone] Prothrombin Time 12.2 seconds Normal 12.5-14.3 Inr 0.89 Normal 14 Liver Profile 01/25/2021 [place] [address] [phone] Ast/Sgot 20 U/L Normal 7-37 Alt/SGPT 22 U/L Normal 12-78 Alkaline Phosphatase 87 U/L Normal 45-117 Bilirubin,Total 0.6 mg/dL Normal 0.2-1.0 Bilirubin,Direct 0.2 mg/dL Normal 0.0-0.2 Total Protein 6.7 GM/DL Normal 6.4-8.2 Albumin 3.7 GM/DL Normal 3.2-5.2 Albumin/Globulin Ratio 1.2 Normal 1.2-2.2 Laboratory test finding 01/25/2021 [place] [address] [phone] Lipase 114 U/L Normal 73-393 15 Cardiac Marker Panel 01/25/2021 [place] [address] [phone] CPK Creatine Phosphokinase 26 U/L Normal 26-19 2 CK-MB Value Mass < 1.0 NG/ML Normal <3.6 MB/CK Relative Index 3.85 Normal < Or =4 16 Troponin I < 0.02 NG/ML Normal < 0.10 17 1 Units are mL/min/1.73 m2 Chronic Kidney Disease Staging per NKF: Stage I & II GFR >=60 Normal to Mildly Decreased Stage III GFR 30-59 Moderately Decreased Stage IV GFR 15-29 Severely Decreased Stage V GFR <15 Very Little GFR Left ESRD GFR <15 on KEY FILER 2 VITAMIN B12 NORMAL RANGE NORMAL 247 - 911 PG/ML INDETERMINATE 211 - 246 PG/ML DEFICIENT LESS THAN 211 PG/ML 3 FOLATE NORMAL RANGE NORMAL GREATER THAN 5.4 NG/ML INDETERMINATE 3.4-5.4 NG/ML DEFICIENT LESS THAN 3.4 NG/ML 4 Units are mL/min/1.73 m2 Chronic Kidney Disease Staging per NKF: Stage I & II GFR >=60 Normal to Mildly Decreased Stage III GFR 30-59 Moderately Decreased Stage IV GFR 15-29 Severely Decreased Stage V GFR <15 Very Little GFR Left ESRD GFR <15 on KEY FILER 5 REFERENCE RANGES: <=5.6% NORMAL 5.7-6.4% SUGGESTS IMPAIRED GLUCOSE META BOLISM/PREDIABETIC >= 6.5% ABNORMAL 6 Units are mL/min/1.73 m2 Chronic Kidney Disease Staging per NKF: Stage I & II GFR >=60 Normal to Mildly Decreased Stage III GFR 30-59 Moderately Decreased Stage IV GFR 15-29 Severely Decreased Stage V GFR <15 Very Little GFR Left ESRD GFR <15 on KEY FILER 7 Y/N query for Sepsis Lactate Rule: Y 8 THERAPUTIC HUMAN INR VALUES INDICATIONS NORMAL RANGES PROPHYLAXIS/TREATMENT OF: VENOUS THROMBOSIS 2.0-3.0 PULMONARY EMBOLISM 2.0-3.0 PREVENTION OF SYSTEMIC EMBOLISM FROM: TISSUE HEART VALVES 2.0-3.0 ACUTE MYOCARDIAL INFARCTION 2.0-3.0 VALVULAR HEART DISEASE 2.0-3.0 ATRIAL FIBRILLATION 2.0-3.0 MECHANICAL VALVES(HIGH RISK) 2.5-3.5 RECURRENT MYOCARDIAL INFARCTION 2.5-3.5 9 Units are mL/min/1.73 m2 Chronic Kidney Disease Staging per NKF: Stage I & II GFR >=60 Normal to Mildly Decreased Stage III GFR 30-59 Moderately Decreased Stage IV GFR 15-29 Severely Decreased Stage V GFR <15 Very Little GFR Left ESRD GFR <15 on KEY FILER 10 REFERENCE RANGES: <=5.6% NORMAL 5.7-6.4% SUGGESTS IMPAIRED GLUCOSE META BOLISM/PREDIABETIC >= 6.5% ABNORMAL 11 THE [employer] ATION STATES THAT MICROALBUMINURIA IS PRESENT IF THE MICROALBUMIN/CREATININE RATIO EXCEEDS 30 MCG/MG. THE THRESHOLD FOR CLINICAL ALBUMINURIA IS REACHED AT 300 MCG/MG. THE CLASSIFICATION OF A PATIENT SHOULD BE BASED UPON AT LEAST 2 OF 3 ABNORMAL RESULTS ON SPECIMENS COLLECTED WITHIN A 3 TO 6 MONTH TIME FRAME. 12 Units are mL/min/1.73 m2 Chronic Kidney Disease Staging per NKF: Stage I & II GFR >=60 Normal to Mildly Decreased Stage III GFR 30-59 Moderately Decreased Stage IV GFR 15-29 Severely Decreased Stage V GFR <15 Very Little GFR Left ESRD GFR <15 on KEY FILER 13 Y/N query for Sepsis Lactate Rule: Y 14 THERAPUTIC HUMAN INR VALUES INDICATIONS NORMAL RANGES PROPHYLAXIS/TREATMENT OF: VENOUS THROMBOSIS 2.0-3.0 PULMONARY EMBOLISM 2.0-3.0 PREVENTION OF SYSTEMIC EMBOLISM FROM: TISSUE HEART VALVES 2.0-3.0 ACUTE MYOCARDIAL INFARCTION 2.0-3.0 VALVULAR HEART DISEASE 2.0-3.0 ATRIAL FIBRILLATION 2.0-3.0 MECHANICAL VALVES(HIGH RISK) 2.5-3.5 RECURRENT MYOCARDIAL INFARCTION 2.5-3.5 15 MOBILAB COMMENT--- 16 DIAGNOSIS CRITERIA MMB ng/ml Relative Index (RI) NON-AMI < or = 5 N/A ANGLIN ZONE > 5 < or = 4 AMI > 5 > 4 17 Troponin I Reference Interva l for [place] LOCI: 99th Percentile= 0.00-0.045 ng/ml Risk Stratification: <= 0.10 ng/ml Decreased Risk for Adverse Clinical Events. 0.10-1.50 ng/ml Increased Risk for Adv erse Clinical Events. Evaluation of additional criterion and/or repeat testing in 2-6 hours is suggested to rule out myocardial damage. >= 1.50 ng/ml Indicative of Myocardial Injury. Procedures Date Code Description Status 05/23/2021 [id number] Mammogram Completed 05/15/2021 [id number] Sherman Cre W/I 7 Days Of DC, Comm W/I 2 Dys Completed 03/07/2021 [id number] Office/Outpatient Established Mo d MDM 30-39 Min Completed 03/07/2021 [id number] Diabetic Foot Exam Completed 05/24/2020 [id number] Colonoscopy Completed 05/20/2018 [id number] Bone Mineral Density Test Comple [email or web address] Description No Information Available Encounters Type Date Location Provider Dx Diagnosis Office Visit 06/06/2021 9:45a Main Office Paula Friedman FNP Z00.0 0 Encntr for general adult medical exam w/o abnormal findings E11.69 Type 2 diabetes mellitus wit h other specified complication I10 Essential (primary) hyperten dexter E78.5 Hyperlipidemia, unspecified D50.9 Iron deficiency anemia, unsp ecified K50.012 Crohn's disease of small int estine w intestinal obstruction Office Visit 05/15/2021 1:30p Main Office Paula Friedman FNP K50.0 12 Crohn's disease of small intestine w intestinal obstruction D50.9 Iron deficiency anemia, unsp ecified E11.69 Type 2 diabetes mellitus wit h other specified complication I10 Essential (primary) hyperten dexter E78.5 Hyperlipidemia, unspecified Office Visit 03/07/2021 9:30a Main Office Halley Garcia M.D. E 11.69 Type 2 diabetes mellitus with other specified complication K50.012 Crohn's disease of small int estine w intestinal obstruction I10 Essential (primary) hyperten dexter E78.5 Hyperlipidemia, unspecified D50.9 Iron deficiency anemia, unsp ecified Z13.89 Encounter for screening for other disorder Assessments Date Code Description Provider 06/06/2021 Z00.00 Encounter for genera l adult medical examination without abnormal findings PlePaula crandall, MAINTENANCE OF WAY [employer] 06/06/2021 E11.69 Type 2 diabetes mellitus with ot her specified complication PleskachBrianay, MAINTENANCE OF WAY [employer]EM[employer] 06/06/2021 I10 Essential (primary) hypertension PleskachBrianay, MAINTENANCE OF WAY [employer]EM[employer] 06/06/2021 E78.5 Hyperlipidemia, unspecified Ples kach Paula, MAINTENANCE [employer] WAY [employer]EM[employer] 06/06/2021 D50.9 Iron deficiency anemia, unspecif ied Pleskach, Paula, MAINTENAN[employer] 06/06/2021 K50.012 Crohn's disease of small intesti ne with intestinal obstructi Pleskach, Paula, MAINTENANCE [employer] WAY [employer]EM[employer] 05/15/2021 K50.012 Crohn's disease of small intesti ne with intestinal obstructi Pleskach, Paula, MAINTENANCE [employer] WAY [employer]EM[employer] 05/15/2021 D50.9 Iron deficiency anemia, unspecif ied Plerenataach Paula, MAINTENANCE OF WAY [employer]EMAN 05/15/2021 E11.69 Type 2 diabetes mellitus with ot her specified complication PleskachBrianay, MAINTENANCE OF WAY [employer]EMAN 05/15/2021 I10 Essential (primary) hypertension Plerenataach Paula, MAINTENANCE OF WAY [employer]EMAN 05/15/2021 E78.5 Hyperlipidemia, unspecified Ples kach Paula, MAINTENANCE [employer] WAY [employer]EMAN 03/07/2021 E11.69 Type 2 diabetes mellitus with ot her specified complication Halley Garcia M.D. 03/07/2021 K50.012 Crohn's disease of small intesti ne with intestinal obstructi Halley Garcia M.D. 03/07/2021 I10 Essential (primary) hypertension Halley Garcia M.D. 03/07/2021 E78.5 Hyperlipidemia, unspecified Will Halley palmer M.D. 03/07/2021 D50.9 Iron deficiency anemia, unspecif ied Halley Garcia M.D. 03/07/2021 Z13.89 Encounter for screening for othe r disorder Halley Garcia M.D. Plan of Treatment Future Appointment(s):* 12/12/2021 9:45 am - Paula Friedman FNP at Main Office 06/06/2021 - Pleskach, Paula, MAINTENANCE OF WAY [employer]EMAN* Z00.00 Encounter for general adult medical examination without abnormal findings* Comments:* Health maintenance up to date. Overall doing well. IZABEL/PHQ 9/CAGE questionnaire reviewed. Discussed healthy lifestyle choices. * E11.69 Type 2 diabetes mellitus with other specified complication* New Labs:* Hemoglobin A1c, Scheduled: 11/26/21 * Comments:* controlled, continue current medications * Follow up:* 6 months with labs * I10 Essential (primary) hypertension* Comments:* controlled, continue current medications * E78.5 Hyperlipidemia, unspecified* Comments:* continue statin * D50.9 Iron deficiency anemia, unspecified* New Labs:* CBC With Differential, Scheduled: 11/26/21 * Ferritin, Scheduled: 11/26/21 * Total Iron Binding Capacit, Scheduled: 11/26/21 * Comments:* H&H improved, check labs next visit * K50.012 Crohn's disease of small intestine with intestinal obstructi* Comments:* f/u with GI Functional Status Functional Condition Comment Date Status Trifocal glasses Active Independent with all ADL's Activ e Mental Status Mental Condition Comment Date Status None Active Referrals Description No Information Available
--- OUTSIDE RECORDS SUMMARY | 2021-06-20 10:20 | CCD | Continuity of Care Document ---
Author Organization Unknown Address Unknown Phone Unavailable Care Team Providers Care Gill Tender Name Role Phone [facility] [phone] [facility] [phone] Problems Active Problems Provider Date Essential hypertension [...] directed to test glucose once daily randomly 1unremi E11.69 Halley Garcia M.D. 01/31/2020 Stelara 90mg/ml Soln Prefill Syrin ge given by injection every [address] Martinez Unknown 01/26/2020 Enalapril Maleate 20mg Tablets take one tablet by mouth daily 90tabs Paula Friedman FNP 01/[address] Part 1 capsules by mouth three times a [...] check blood sugar 3 times a day 360units E11.9 Halley Garcia M.D. 02/23/2016 Atorvastatin Calcium 10mg Tablets Take One Tablet By Mouth Every Day 90tabs Halley Garcia A., M. D. 10/23/2015 Vitamin D 3 1000Iu Capsules 1 by mouth every day Unknown Ferrous Sulfate 325(65Fe) mg Table ts 1 by mouth bid Unknown Vitamin B-12 1000mcg Tablets 1 tabs by mouth every day Unknown Metformin HCL 1000mg Tablets Take One Tablet By Mouth Twice A Day With Meals For Diabetes 180Halley Sadler M.D. Hydrochlorothiazide 25mg Tablets Take One Tablet By Mouth Every Day 90Halley Sadler M. D. Voltaren 1% Gel apply a pea size amount to the affected low back up to 4 times a day Unknow n Tylenol 325mg Capsules one-two tabs by mouth every 4-6 hour daily as needed for pain Un known Metoprolol Tartrate 25mg Tablets take one tablet by mouth twice a day Unknown Immunizations CPT Code Status Date Vaccine Lot # [id number] Given 05/08/2021 Influenza Virus Vaccine, Dandre drivalent,multidose vial 44619 Given 05/08/2021 Pneumococcal Vaccine U-Flu Given 08/20/2020 Influenza,Unspecified 27933 Given 08/09/2019 Prevnar 13 [id number] 75752 Given 06/21/2019 Influenza Virus Vaccine, Dandre drivalent,multidose vial 33731 Given 07/29/2018 Influenza Virus, quadravalent, age 6 Mo and up,Preservative free [id number] 62615 Given 05/07/2016 Influenza Vaccination [id number] 24804 Given 06/22/2015 Influenza Vaccination/preser vative free [id number] 73980 Given 02/24/2014 Zostavax U-HepB Given 11/17/2012 Hepatitis B,Unspecified U-HepB Given 07/07/2012 Hepatitis B,Unspecified 39333 Given 05/12/2012 Influenza Vaccination U-HepB Given 03/27/2012 Hepatitis B,Unspecified 00521 Given 05/02/2011 Influenza Vaccination 14822 Given 05/29/2010 Influenza Vaccination 34953 Given 04/13/2010 Pneumococcal Vaccine 40700 Given 04/13/2010 Boostrix (Tdap) Tetnus, Diphtheria Toxoids & Acellular Pertussis Vital Signs Date Vital Result Comment 06/06/2021 9:48am BP Systolic 134 mmHg BP Diastolic 75 mmHg Heart Rate 81 /min Body Temperature 99.0 F Respiratory Rate 18 /min Height 57 inches 4'9" Weight 183.50 lb O2 % BldC Oximetry 97 % Ashley Body Weight 100 lb BMI (Body Mass Index) 39.7 kg/m2 05/15/2021 1:30pm BP Systolic 137 mmHg BP Diastolic 67 mmHg Heart Rate 94 /min Body Temperature 98.7 F Respiratory Rate 20 /min Height 57.25 inches 4'9.25" Weight 182.25 lb O2 % BldC Oximetry 98 % Ashley Body Weight 100 lb BMI (Body Mass Index) 39.1 kg/m2 Results Test Acquired Date Facility Test Result H/L Range Note Laboratory test finding 06/08/2021 Patient Service [place], [place] [id number] [phone] Erythrocyte Sedimentation Rate 16 mm/hr Normal 0 -30 Comprehensive Metabolic Profil 06/08/2021 Patient S ervice [place], [place] [address] [phone] Glucose, Fasting 128 mg/dL High 70-100 Blood [...] CBC With Differential 06/08/2021 [place] [address] [phone] White Blood Count 6.6 10 Normal 4.0-10.0 [...] 36.0-66.0 Lymph % 17.4 % Low 24.0-44.0 [place] % 8.9 % High 2.0-8.0 Eos % 1.1 % Normal 0.0-3.0 Baso % 0.6 % Normal 0.0-1.0 Immature Granulocyte % 0.6 % Normal 0-3.0 Nucleated Red Blood Cell % 0.0 % Normal 0-0 Neutrophils # 4.7 10 Normal 1.5-8.5 Lymph # 1.1 10 Low 1.5-5.0 [place] # 0.6 10 Normal 0.0-0.8 Eos # 0.1 10 Normal 0.0-0.5 Baso # 0.0 10 Normal 0.0-0.2 Vitamin B12 & Folate 05/23/2021 [place] [address] [phone] Vitamin B12 Level 643 pg/mL Normal 2 Folate 17.2 NG/ML Normal 3 Total Iron Binding Capacit 05/23/2021 [place] [address] [phone] Iron (Fe) 54 g/dL Normal 50-170 Total Iron Binding Capacity 403 g/dL Normal 250-450 Percent Saturation 13.4 % Normal 13.2-45.0 Comprehensive Metabolic Profil 05/23/2021 [place] [address] [phone] Glucose, Fasting 119 mg/dL High 70-100 Blood [...] Ratio 1.2 Normal 1.2-2.2 Hemoglobin A1c 05/23/2021 [facility]ter [phone] Hemoglobin A1c 6.1 % Normal 5 Estimated Average Glucose 128 mg/dL High 60-110 CBC With Differential 05/23/2021 [facility] [phone] White Blood Count 5.9 10 Normal 4.0-10.0 [...] 36.0-66.0 Lymph % 14.2 % Low 24.0-44.0 [place] % 7.4 % Normal 2.0-8.0 Eos % 0.8 % Normal 0.0-3.0 Baso % 0.5 % Normal 0.0-1.0 Immature Granulocyte % 0.7 % Normal 0-3.0 Nucleated Red Blood Cell % 0.0 % Normal 0-0 Neutrophils # 4.5 10 Normal 1.5-8.5 Lymph # 0.8 10 Low 1.5-5.0 [place] # 0.4 10 Normal 0.0-0.8 Eos # 0.1 10 Normal 0.0-0.5 Baso # 0.0 10 Normal 0.0-0.2 Comprehensive Metabolic Profil 05/23/2021 [facility] [phone] Glucose, Fasting 117 mg/dL High 70-100 Blood [...] 1.2-2.2 CBC With Differential 05/23/2021 [place] [address] [phone] White Blood Count 5.8 10 Normal 4.0-10.0 [...] 36.0-66.0 Lymph % 14.7 % Low 24.0-44.0 [place] % 7.8 % Normal 2.0-8.0 Eos % 0.7 % Normal 0.0-3.0 Baso % 0.7 % Normal 0.0-1.0 Immature Granulocyte % 0.9 % Normal 0-3.0 Nucleated Red Blood Cell % 0.0 % Normal 0-0 Neutrophils # 4.3 10 Normal 1.5-8.5 Lymph # 0.9 10 Low 1.5-5.0 [place] # 0.5 10 Normal 0.0-0.8 Eos # 0.0 10 Normal 0.0-0.5 Baso # 0.0 10 Normal 0.0-0.2 Ua W/ Reflex To Culture 05/07/2021 [place] [address] [phone] Appearance, Urine RFX CLEAR Normal Clear Color, Urine RFX YELLOW Normal Yellow PH,Urine RFX 8.0 units Normal 5.0-9.0 Specific [place] Ur Auto RFX 1.048 Normal 1.002-1.035 Protein, [...] 0-1 Laboratory test finding 05/07/2021 [place] [address] [phone] Lipase 115 U/L Normal 73-393 Lactic Acid Sepsis Protocol 2.7 mmol/L Critical high 0.4-2.0 7 Liver Profile 05/07/2021 Patient Service [place] [id number] [phone] Ast/Sgot 13 U/L Normal 7-37 Alt/SGPT 15 U/L Normal 12-78 Alkaline Phosphatase 66 U/L Normal 45-117 Bilirubin,Total 0.7 mg/dL Normal 0.2-1.0 Bilirubin,Direct 0.2 mg/dL Normal 0.0-0.2 Total Protein 6.0 GM/DL Low 6.4-8.2 Albumin 3.3 GM/DL Normal 3.2-5.2 Albumin/Globulin Ratio 1.2 Normal 1.2-2.2 Prothrombin Time/Inr 05/07/[address] [facility] [place] [address] [phone] Prothrombin Time 12.9 seconds Normal 12.7-14.5 Inr 0.93 Normal 8 Istat Chem8+ Panel 05/07/2021 Patient [place] [address] [phone] iSTAT HCT 22.0 % Low 38.0-51.0 iSTAT Glucose 120 mg/dL High 70-105 iSTAT Sodium 138 mEq/L Normal 136-145 iSTAT Potassium 3.9 mEq/L Normal 3.5-5.1 iSTAT CA++ 4.7 mg/dL Normal 4.5-5.3 iSTAT Chloride 100 mEq/L Normal 98-109 iSTAT Co2 26.0 MM/L Normal 23.0-27.0 iSTAT BUN 11 mg/dL Normal 8-26 iSTAT Creatinine 0.9 mg/dL Normal 0.6-1.3 CBC With Differential 05/07/2021 Patient Service Ce nter [facility] [place] [address] [phone] White Blood Count 6.6 10 Normal 4.0-10.0 [...] 36.0-66.0 Lymph % 14.1 % Low 24.0-44.0 [place] % 5.5 % Normal 2.0-8.0 Eos % 1.1 % Normal 0.0-3.0 Baso % 0.2 % Normal 0.0-1.0 Immature Granulocyte % 0.6 % Normal 0-3.0 Nucleated Red Blood Cell % 0.0 % Normal 0-0 Neutrophils # 5.2 10 Normal 1.5-8.5 Lymph # 0.9 10 Low 1.5-5.0 [place] # 0.4 10 Normal 0.0-0.8 Eos # 0.1 10 Normal 0.0-0.5 Baso # 0.0 10 Normal 0.0-0.2 Laboratory test finding 05/07/2021 Patient Service [facility] [place], [place] [id number] [phone] Partial Thromboplastin Time 20.9 seconds Low 25 .9-37.0 CBC With Differential 04/07/2021 Patient Service [place], [place] [address] [phone] White Blood Count 5.9 10 Normal 4.0-10.0 [...] 36.0-66.0 Lymph % 18.2 % Low 24.0-44.0 [place] % 7.8 % Normal 2.0-8.0 Eos % 1.7 % Normal 0.0-3.0 Baso % 0.7 % Normal 0.0-1.0 Immature Granulocyte % 0.7 % Normal 0-3.0 Nucleated Red Blood Cell % 0.0 % Normal 0-0 Neutrophils # 4.2 10 Normal 1.5-8.5 Lymph # 1.1 10 Low 1.5-5.0 [place] # 0.5 10 Normal 0.0-0.8 Eos # 0.1 10 Normal 0.0-0.5 Baso # 0.0 10 Normal 0.0-0.2 Comprehensive Metabolic Profil 04/07/[address]21 [place], [place] [address] [phone] Glucose, Fasting 111 mg/dL High 70-100 Blood [...] Ratio 1.3 Normal 1.2-2.2 Hemoglobin A1c 03/04/2021 [facility] nter [phone] Hemoglobin A1c 7.7 % Normal 10 Estimated Average Glucose 174 mg/dL High 60-110 Lipid Panel 03/04/2021 [facility] [phone] Triglycerides Level 366 mg/dL High <150 Cholesterol Level 165 mg/dL Normal <200 HDL Cholesterol 40 mg/dL Normal >40 LDL Cholesterol 52 mg/dL Normal <100 Non-HDL-C 125 mg/dL Normal Cholesterol Risk Ratio 4.125 Normal <5 Microalbumin Random 03/04/2021 [facility] [phone] Creatinine, Urine 77.3 mg/dL Normal Malb Urine Siemens 13.2 mg/L Normal [place]io/Creat Ratio 17.0 MCG/MG Normal 0.0-30.0 11 Comprehensive Metabolic Profil 03/04/2021 [facility] [phone] Glucose, Fasting 161 mg/dL High 70-100 Blood [...] 1.2-2.2 Laboratory test finding 01/25/2021 [place] [address] [phone] Lactic Acid Sepsis Protocol 3.3 mmol/L Critical high 0 .4-2.0 13 Istat Chem8+ Panel 01/25/2021 Patient Service [place], [place] [id number] [phone] iSTAT HCT 36.0 % Low 38.0-51.0 iSTAT Glucose 143 mg/dL High 70-105 iSTAT Sodium 138 mEq/L Normal 136-145 iSTAT Potassium 4.2 mEq/L Normal 3.5-5.1 iSTAT CA++ 4.7 mg/dL Normal 4.5-5.3 iSTAT Chloride 96 mEq/L Low 98-109 iSTAT Co2 29.0 MM/L High 23.0-27.0 iSTAT BUN 10 mg/dL Normal 8-26 iSTAT Creatinine 0.7 mg/dL Normal 0.6-1.3 CBC With Differential 01/25/2021 Patient Service Ce nter [facility] [place] [address] [phone] White Blood Count 9.2 10 Normal 4.0-10.0 [...] 36.0-66.0 Lymph % 11.8 % Low 24.0-44.0 [place] % 6.1 % Normal 2.0-8.0 Eos % 0.9 % Normal 0.0-3.0 Baso % 0.5 % Normal 0.0-1.0 Immature Granulocyte % 0.7 % Normal 0-3.0 Nucleated Red Blood Cell % 0.0 % Normal 0-0 Neutrophils # 7.4 10 Normal 1.5-8.5 Lymph # 1.1 10 Low 1.5-5.0 [place] # 0.6 10 Normal 0.0-0.8 Eos # 0.1 10 Normal 0.0-0.5 Baso # 0.1 10 Normal 0.0-0.2 Prothrombin Time/Inr 01/25/[address] [facility] [place] [address] [phone] Prothrombin Time 12.2 seconds Normal 12.5-14.3 Inr 0.89 Normal 14 Liver Profile 01/25/[address] [facility] [place] [address] [phone] Ast/Sgot 20 U/L Normal 7-37 Alt/SGPT 22 U/L Normal 12-78 Alkaline Phosphatase 87 U/L Normal 45-117 Bilirubin,Total 0.6 mg/dL Normal 0.2-1.0 Bilirubin,Direct 0.2 mg/dL Normal 0.0-0.2 Total Protein 6.7 GM/DL Normal 6.4-8.2 Albumin 3.7 GM/DL Normal 3.2-5.2 Albumin/Globulin Ratio 1.2 Normal 1.2-2.2 Laboratory test finding 01/25/2021 [place] [address] [phone] Lipase 114 U/L Normal 73-393 15 Cardiac Marker Panel 01/25/2021 [place] [address] [phone] CPK Creatine Phosphokinase 26 U/L Normal 26-19 [...] Little GFR Left ESRD GFR <15 on MENTAL HE[employer] PROGRAM MANAGER 2 VITAMIN B12 NORMAL RANGE NORMAL 247 [...] Little GFR Left ESRD GFR <15 on MENTAL HEALTH PROGRAM MANAGER 5 REFERENCE RANGES: <=5.6% NORMAL 5.7-6.4% SUGGESTS IMPAIRED GLUCOSE META BOLISM/PREDIABETIC >= 6.5% ABNORMAL 6 Units are mL/min/1.73 m2 Chronic Kidney Disease Staging per NKF: Stage I & II GFR >=60 Normal to Mildly Decreased Stage III GFR 30-59 Moderately Decreased Stage IV GFR 15-29 Severely Decreased Stage V GFR <15 Very Little GFR Left ESRD GFR <15 on MENTAL HEALTH PROGRAM MANAGER 7 Y/N query for Sepsis Lactate Rule: [...] Little GFR Left ESRD GFR <15 on MENTAL HEALTH PROGRAM MANAGER 10 REFERENCE RANGES: <=5.6% NORMAL 5.7-6.4% SUGGESTS IMPAIRED GLUCOSE META BOLISM/PREDIABETIC >= 6.5% ABNORMAL 11 THE [employer] ATION STATES THAT MICROALBUMINURIA IS [...] Little GFR Left ESRD GFR <15 on MENTAL HEALTH PROGRAM MANAGER 13 Y/N query for Sepsis Lactate Rule: [...] 17 Troponin I Reference Interva l for Breaker LOCI: 99th Percentile= 0.00-0.045 ng/ml Risk Stratification: <= 0.10 ng/ml Decreased Risk for Adverse Clinical Events. 0.10-1.50 ng/ml Increased Risk for Adv erse Clinical Events. Evaluation of additional criterion and/or repeat testing in 2-6 hours is suggested to rule out myocardial damage. >= 1.50 ng/ml Indicative of Myocardial Injury. Procedures Date Code Description Status 06/06/2021 33210 Office/Outpatient Established Mo d MDM 30-39 Min Completed 05/23/2021 [id number] Mammogram Completed 05/15/2021 59483 Sherman Cre W/I 7 Days Of DC, Comm W/I 2 Dys Completed 03/07/2021 [id number] Office/Outpatient Established Mo d MDM 30-39 Min Completed 03/07/2021 [id number] Diabetic Foot Exam Completed 05/24/2020 [id number] Colonoscopy Completed 05/20/2018 [id number] Bone Mineral Density Test Comple [email or web address] Description No Information Available Encounters Type Date [...] l adult medical examination without abnormal findings Paula Friedman FNP 06/06/2021 E11.69 Type 2 diabetes mellitus with ot her specified complication Pleskach, Paula, EARLY YEARS TEACHER 06/06/2021 I10 Essential (primary) hypertension Pleskach, Paula, EARLY YEARS TEACHER 06/06/2021 E78.5 Hyperlipidemia, unspecified Ples kach, Paula, EARLY YEARS TEACHER 06/06/2021 D50.9 Iron deficiency anemia, unspecif ied Pleskach, Paula, EARLY YEARS TEACHER 06/06/2021 K50.012 Crohn's disease of small intesti ne with intestinal obstructi Pleskach, Paula, EARLY YEARS TEACHER 05/15/2021 K50.012 Crohn's disease of small intesti ne with intestinal obstructi Pleskach, Paula, EARLY YEARS TEACHER 05/15/2021 D50.9 Iron deficiency anemia, unspecif ied Pleskach, Paula, EARLY YEARS TEACHER 05/15/2021 E11.69 Type 2 diabetes mellitus with ot her specified complication Pleskach, Paula, EARLY YEARS TEACHER 05/15/2021 I10 Essential (primary) hypertension Plerenataach Paula, EARLY YEARS TEACHER 05/15/2021 E78.5 Hyperlipidemia, unspecified Ples kach, Paula, EARLY YEARS TEACHER 03/07/2021 E11.69 Type 2 diabetes mellitus with [...] Friedman FNP at Main Office 06/06/2021 - Paula Friedman FNP* Z00.00 Encounter for general adult medical examination [...]
--- OUTSIDE RECORDS SUMMARY | 2021-06-20 10:20 | CCD | Continuity of Care Document ---
Author Author Briseyda FRIEDMAN [facility] Organization Unknown Address [address] [place] [address] Phone [phone] Care Team Providers Care Formal Waiter/Waitress Name Role Phone [facility] [phone] Problems Active Problems Provider Date Essential hypertension [...] CPT Code Status Date Vaccine Lot # [id number] Given 05/08/2021 Influenza Virus Vaccine, Dandre drivalent,multidose vial 32467 Given 05/08/2021 Pneumococcal Vaccine U-Flu Given 08/20/2020 Influenza,Unspecified 38727 Given 08/09/2019 Prevnar 13 [id number] 07176 Given 06/21/2019 Influenza Virus Vaccine, Dandre drivalent,multidose vial 44892 Given 07/29/2018 Influenza Virus, quadravalent, age 6 Mo and up,Preservative free [id number] 80893 Given 05/07/2016 Influenza Vaccination [id number] 72281 Given 06/22/2015 Influenza Vaccination/preser vative free [id number] 82243 Given 02/24/2014 Zostavax U-HepB Given 11/17/2012 Hepatitis B,Unspecified U-HepB Given 07/07/2012 Hepatitis B,Unspecified 99005 Given 05/12/2012 Influenza Vaccination U-HepB Given 03/27/2012 Hepatitis B,Unspecified 24805 Given 05/02/2011 Influenza Vaccination 22948 Given 05/29/2010 Influenza Vaccination 08308 Given 04/13/2010 Pneumococcal Vaccine 71202 Given 04/13/2010 Boostrix (Tdap) Tetnus, Diphtheria Toxoids & Acellular Pertussis Vital Signs Date Vital Result Comment 06/06/2021 9:48am BP Systolic 134 mmHg BP Diastolic 75 mmHg Heart Rate 81 /min Body Temperature 99.0 F Respiratory Rate 18 /min Height 57 inches 4'9" Weight 183.50 lb O2 % BldC Oximetry 97 % [place] Body Weight 100 lb BMI (Body Mass Index) 39.7 kg/m2 05/15/2021 1:30pm BP Systolic 137 mmHg BP Diastolic 67 mmHg Heart Rate 94 /min Body Temperature 98.7 F Respiratory Rate 20 /min Height 57.25 inches 4'9.25" Weight 182.25 lb O2 % BldC Oximetry 98 % [place] Body Weight 100 lb BMI (Body Mass Index) 39.1 kg/m2 Results Test Acquired Date Facility Test Result H/L Range Note Comprehensive Metabolic Profil 05/23/2021 [facility] [phone] Glucose, Fasting 117 mg/dL High 70-100 Blood Urea Nitrogen 17 mg/dL Normal 7-18 Creatinine For GFR 0.80 mg/dL Normal 0.55-1.30 Glomerular Filtration Rate > 60.0 Normal >45 1 Sodium Level 138 mEq/L Normal 136-145 Potassium [...] Normal 3.2-5.2 Albumin/Globulin Ratio 1.2 Normal 1.2-2.2 Vitamin B12 & Folate 05/23/2021 Patient Service [facility] RADIOLOGY [place], [place] [id number] [phone] Vitamin B12 Level 643 pg/mL Normal 2 Folate 17.2 NG/ML Normal 3 Total Iron Binding Capacit 05/23/2021 [place] [address] [phone] Iron (Fe) 54 g/dL Normal 50-170 Total Iron Binding Capacity 403 g/dL Normal 250-450 Percent Saturation 13.4 % Normal 13.2-45.0 CBC With Differential 05/23/2021 [place] [address] [phone] White Blood Count 5.8 10 Normal 4.0-10.0 [...] 36.0-66.0 Lymph % 14.7 % Low 24.0-44.0 [place] % 7.8 % Normal 2.0-8.0 Eos % 0.7 % Normal 0.0-3.0 Baso % 0.7 % Normal 0.0-1.0 Immature Granulocyte % 0.9 % Normal 0-3.0 Nucleated Red Blood Cell % 0.0 % Normal 0-0 Neutrophils # 4.3 10 Normal 1.5-8.5 Lymph # 0.9 10 Low 1.5-5.0 [place] # 0.5 10 Normal 0.0-0.8 Eos # 0.0 10 Normal 0.0-0.5 Baso # 0.0 10 Normal 0.0-0.2 CBC With Differential 05/23/2021 [facility] [phone] White Blood Count 5.9 10 Normal 4.0-10.0 [...] 36.0-66.0 Lymph % 14.2 % Low 24.0-44.0 [place] % 7.4 % Normal 2.0-8.0 Eos % 0.8 % Normal 0.0-3.0 Baso % 0.5 % Normal 0.0-1.0 Immature Granulocyte % 0.7 % Normal 0-3.0 Nucleated Red Blood Cell % 0.0 % Normal 0-0 Neutrophils # 4.5 10 Normal 1.5-8.5 Lymph # 0.8 10 Low 1.5-5.0 [place] # 0.4 10 Normal 0.0-0.8 Eos # 0.1 10 Normal 0.0-0.5 Baso # 0.0 10 Normal 0.0-0.2 Hemoglobin A1c 05/23/2021 [facility] nter [phone] Hemoglobin A1c 6.1 % Normal 4 Estimated Average Glucose 128 mg/dL High 60-110 Comprehensive Metabolic Profil 05/23/[address] [address] [phone] Glucose, Fasting 119 mg/dL High 70-100 Blood Urea Nitrogen 18 mg/dL Normal 7-18 Creatinine For GFR 0.80 mg/dL Normal 0.55-1.30 Glomerular Filtration Rate > 60.0 Normal >45 5 Sodium Level 138 mEq/L Normal 136-145 Potassium [...] Normal 3.2-5.2 Albumin/Globulin Ratio 1.2 Normal 1.2-2.2 Ua W/ Reflex To Culture 05/07/2021 [place] [address] [phone] Appearance, Urine RFX CLEAR Normal Clear Color, Urine RFX YELLOW Normal Yellow PH,Urine RFX 8.0 units Normal 5.0-9.0 Specific [place] Ur Auto RFX 1.048 Normal 1.002-1.035 Protein, [...] 0-1 Laboratory test finding 05/07/2021 [place] [address] [phone] Lipase 115 U/L Normal 73-393 Lactic Acid Sepsis Protocol 2.7 mmol/L Critical high 0.4-2.0 6 Liver Profile 05/07/2021 [place] [address] [phone] Ast/Sgot 13 U/L Normal 7-37 Alt/SGPT 15 U/L Normal 12-78 Alkaline Phosphatase 66 U/L Normal 45-117 Bilirubin,Total 0.7 mg/dL Normal 0.2-1.0 Bilirubin,Direct 0.2 mg/dL Normal 0.0-0.2 Total Protein 6.0 GM/DL Low 6.4-8.2 Albumin 3.3 GM/DL Normal 3.2-5.2 Albumin/Globulin Ratio 1.2 Normal 1.2-2.2 Prothrombin Time/Inr 05/07/[address] [place] [address] [phone] Prothrombin Time 12.9 seconds Normal 12.7-14.5 Inr 0.93 Normal 7 Istat Chem8+ Panel 05/07/2021 [facility] [place] [address] [phone] iSTAT HCT 22.0 % Low 38.0-51.0 iSTAT Glucose 120 mg/dL High 70-105 iSTAT Sodium 138 mEq/L Normal 136-145 iSTAT Potassium 3.9 mEq/L Normal 3.5-5.1 iSTAT CA++ 4.7 mg/dL Normal 4.5-5.3 iSTAT Chloride 100 mEq/L Normal 98-109 iSTAT Co2 26.0 MM/L Normal 23.0-27.0 iSTAT BUN 11 mg/dL Normal 8-26 iSTAT Creatinine 0.9 mg/dL Normal 0.6-1.3 CBC With Differential 05/07/2021 Patient Service Ce nter [facility] [place] [address] [phone] White Blood Count 6.6 10 Normal 4.0-10.0 [...] 36.0-66.0 Lymph % 14.1 % Low 24.0-44.0 [place] % 5.5 % Normal 2.0-8.0 Eos % 1.1 % Normal 0.0-3.0 Baso % 0.2 % Normal 0.0-1.0 Immature Granulocyte % 0.6 % Normal 0-3.0 Nucleated Red Blood Cell % 0.0 % Normal 0-0 Neutrophils # 5.2 10 Normal 1.5-8.5 Lymph # 0.9 10 Low 1.5-5.0 [place] # 0.4 10 Normal 0.0-0.8 Eos # 0.1 10 Normal 0.0-0.5 Baso # 0.0 10 Normal 0.0-0.2 Laboratory test finding 05/07/2021 [place] [address] [phone] Partial Thromboplastin Time 20.9 seconds Low 25 .9-37.0 CBC With Differential 04/07/2021 [place] [address] [phone] White Blood Count 5.9 10 Normal 4.0-10.0 [...] 36.0-66.0 Lymph % 18.2 % Low 24.0-44.0 [place] % 7.8 % Normal 2.0-8.0 Eos % 1.7 % Normal 0.0-3.0 Baso % 0.7 % Normal 0.0-1.0 Immature Granulocyte % 0.7 % Normal 0-3.0 Nucleated Red Blood Cell % 0.0 % Normal 0-0 Neutrophils # 4.2 10 Normal 1.5-8.5 Lymph # 1.1 10 Low 1.5-5.0 [place] # 0.5 10 Normal 0.0-0.8 Eos # 0.1 10 Normal 0.0-0.5 Baso # 0.0 10 Normal 0.0-0.2 Comprehensive Metabolic Profil 04/07/2021 [place] [id number] [phone] Glucose, Fasting 111 mg/dL High 70-100 Blood Urea Nitrogen 14 mg/dL Normal 7-18 Creatinine For GFR 0.75 mg/dL Normal 0.55-1.30 Glomerular Filtration Rate > 60.0 Normal >45 8 Sodium Level 140 mEq/L Normal 136-145 Potassium [...] Ratio 1.3 Normal 1.2-2.2 Hemoglobin A1c 03/04/2021 [facility] [phone] Hemoglobin A1c 7.7 % Normal 9 Estimated Average Glucose 174 mg/dL High 60-110 Lipid Panel 03/04/2021 [facility] [phone] Triglycerides Level 366 mg/dL High <150 Cholesterol Level 165 mg/dL Normal <200 HDL Cholesterol 40 mg/dL Normal >40 LDL Cholesterol 52 mg/dL Normal <100 Non-HDL-C 125 mg/dL Normal Cholesterol Risk Ratio 4.125 Normal <5 Microalbumin Random 03/04/2021 [facility] [phone] Creatinine, Urine 77.3 mg/dL Normal Mal[place] Urine Siemens 13.2 mg/L Normal [place]/Creat Ratio 17.0 MCG/MG Normal 0.0-30.0 10 Comprehensive Metabolic Profil 03/04/2021 [facility] [phone] Glucose, Fasting 161 mg/dL High 70-100 Blood Urea Nitrogen 11 mg/dL Normal 7-18 Creatinine For GFR 0.83 mg/dL Normal 0.55-1.30 Glomerular Filtration Rate > 60.0 Normal >45 1 1 Sodium Level 140 mEq/L Normal 136-145 [...] 1.2-2.2 Laboratory test finding 01/25/2021 [place] [address] [phone] Lactic Acid Sepsis Protocol 3.3 mmol/L Critical high 0 .4-2.0 12 Istat Chem8+ Panel 01/25/2021 [place] [address] [phone] iSTAT HCT 36.0 % Low 38.0-51.0 iSTAT Glucose 143 mg/dL High 70-105 iSTAT Sodium 138 mEq/L Normal 136-145 iSTAT Potassium 4.2 mEq/L Normal 3.5-5.1 iSTAT CA++ 4.7 mg/dL Normal 4.5-5.3 iSTAT Chloride 96 mEq/L Low 98-109 iSTAT Co2 29.0 MM/L High 23.0-27.0 iSTAT BUN 10 mg/dL Normal 8-26 iSTAT Creatinine 0.7 mg/dL Normal 0.6-1.3 CBC With Differential 01/25/2021 [place] [address] [phone] White Blood Count 9.2 10 Normal 4.0-10.0 [...] 36.0-66.0 Lymph % 11.8 % Low 24.0-44.0 [place] % 6.1 % Normal 2.0-8.0 Eos % 0.9 % Normal 0.0-3.0 Baso % 0.5 % Normal 0.0-1.0 Immature Granulocyte % 0.7 % Normal 0-3.0 Nucleated Red Blood Cell % 0.0 % Normal 0-0 Neutrophils # 7.4 10 Normal 1.5-8.5 Lymph # 1.1 10 Low 1.5-5.0 [place] # 0.6 10 Normal 0.0-0.8 Eos # 0.1 10 Normal 0.0-0.5 Baso # 0.1 10 Normal 0.0-0.2 Prothrombin Time/Inr 01/25/2021 [place] [address] [phone] Prothrombin Time 12.2 seconds Normal 12.5-14.3 Inr 0.89 Normal 13 Liver Profile 01/25/2021 [place] [address] [phone] Ast/Sgot 20 U/L Normal 7-37 Alt/SGPT 22 U/L Normal 12-78 Alkaline Phosphatase 87 U/L Normal 45-117 Bilirubin,Total 0.6 mg/dL Normal 0.2-1.0 Bilirubin,Direct 0.2 mg/dL Normal 0.0-0.2 Total Protein 6.7 GM/DL Normal 6.4-8.2 Albumin 3.7 GM/DL Normal 3.2-5.2 Albumin/Globulin Ratio 1.2 Normal 1.2-2.2 Laboratory test finding 01/25/2021 [place] [address] [phone] Lipase 114 U/L Normal 73-393 14 Cardiac Marker Panel 01/25/2021 [place] [address] [phone] CPK Creatine Phosphokinase 26 U/L Normal 26-19 2 CK-MB Value Mass < 1.0 NG/ML Normal <3.6 MB/CK Relative Index 3.85 Normal < Or =4 15 Troponin I < 0.02 NG/ML Normal < 0.10 16 1 Units are mL/min/1.73 m2 Chronic Kidney Disease Staging per NKF: Stage I & II GFR >=60 Normal to Mildly Decreased Stage III GFR 30-59 Moderately Decreased Stage IV GFR 15-29 Severely Decreased Stage V GFR <15 Very Little GFR Left ESRD GFR <15 on BUSINESS ACCOUNT LEADER 2 VITAMIN B12 NORMAL RANGE NORMAL 247 - 911 PG/ML INDETERMINATE 211 - 246 PG/ML DEFICIENT LESS THAN 211 PG/ML 3 FOLATE NORMAL RANGE NORMAL GREATER THAN 5.4 NG/ML INDETERMINATE 3.4-5.4 NG/ML DEFICIENT LESS THAN 3.4 NG/ML 4 REFERENCE RANGES: <=5.6% NORMAL 5.7-6.4% SUGGESTS IMPAIRED GLUCOSE META BOLISM/PREDIABETIC >= 6.5% ABNORMAL 5 Units are mL/min/1.73 m2 Chronic Kidney Disease Staging per NKF: Stage I & II GFR >=60 Normal to Mildly Decreased Stage III GFR 30-59 Moderately Decreased Stage IV GFR 15-29 Severely Decreased Stage V GFR <15 Very Little GFR Left ESRD GFR <15 on BUSINESS ACCOUNT LEADER 6 Y/N query for Sepsis Lactate Rule: Y 7 THERAPUTIC HUMAN INR VALUES INDICATIONS NORMAL RANGES PROPHYLAXIS/TREATMENT OF: VENOUS THROMBOSIS 2.0-3.0 PULMONARY EMBOLISM 2.0-3.0 PREVENTION OF SYSTEMIC EMBOLISM FROM: TISSUE HEART VALVES 2.0-3.0 ACUTE MYOCARDIAL INFARCTION 2.0-3.0 VALVULAR HEART DISEASE 2.0-3.0 ATRIAL FIBRILLATION 2.0-3.0 MECHANICAL VALVES(HIGH RISK) 2.5-3.5 RECURRENT MYOCARDIAL INFARCTION 2.5-3.5 8 Units are mL/min/1.73 m2 Chronic Kidney Disease Staging per NKF: Stage I & II GFR >=60 Normal to Mildly Decreased Stage III GFR 30-59 Moderately Decreased Stage IV GFR 15-29 Severely Decreased Stage V GFR <15 Very Little GFR Left ESRD GFR <15 on BUSINESS ACCOUNT LEADER 9 REFERENCE RANGES: <=5.6% NORMAL 5.7-6.4% SUGGESTS IMPAIRED GLUCOSE META BOLISM/PREDIABETIC >= 6.5% ABNORMAL 10 THE [employer] ATION STATES THAT MICROALBUMINURIA IS PRESENT IF THE MICROALBUMIN/CREATININE RATIO EXCEEDS 30 MCG/MG. THE THRESHOLD FOR CLINICAL ALBUMINURIA IS REACHED AT 300 MCG/MG. THE CLASSIFICATION OF A PATIENT SHOULD BE BASED UPON AT LEAST 2 OF 3 ABNORMAL RESULTS ON SPECIMENS COLLECTED WITHIN A 3 TO 6 MONTH TIME FRAME. 11 Units are mL/min/1.73 m2 Chronic Kidney Disease Staging per NKF: Stage I & II GFR >=60 Normal to Mildly Decreased Stage III GFR 30-59 Moderately Decreased Stage IV GFR 15-29 Severely Decreased Stage V GFR <15 Very Little GFR Left ESRD GFR <15 on BUSINESS ACCOUNT LEADER 12 Y/N query for Sepsis Lactate Rule: Y 13 THERAPUTIC HUMAN INR VALUES INDICATIONS NORMAL RANGES PROPHYLAXIS/TREATMENT OF: VENOUS THROMBOSIS 2.0-3.0 PULMONARY EMBOLISM 2.0-3.0 PREVENTION OF SYSTEMIC EMBOLISM FROM: TISSUE HEART VALVES 2.0-3.0 ACUTE MYOCARDIAL INFARCTION 2.0-3.0 VALVULAR HEART DISEASE 2.0-3.0 ATRIAL FIBRILLATION 2.0-3.0 MECHANICAL VALVES(HIGH RISK) 2.5-3.5 RECURRENT MYOCARDIAL INFARCTION 2.5-3.5 14 MOBILAB COMMENT--- 15 DIAGNOSIS CRITERIA MMB ng/ml Relative Index (RI) NON-AMI < or = 5 N/A ANGLIN ZONE > 5 < or = 4 AMI > 5 > 4 16 Troponin I Reference Interva l for [employer] LOCI: 99th Percentile= 0.00-0.045 ng/ml Risk Stratification: <= 0.10 ng/ml Decreased Risk for Adverse Clinical Events. 0.10-1.50 ng/ml Increased Risk for Adv erse Clinical Events. Evaluation of additional criterion and/or repeat testing in 2-6 hours is suggested to rule out myocardial damage. >= 1.50 ng/ml Indicative of Myocardial Injury. Procedures Date Code Description Status 05/23/2021 [id number] Mammogram Completed 05/15/2021 89734 Sherman Cre W/I 7 Days Of DC, Comm W/I 2 Dys Completed 03/07/2021 69202 Office/Outpatient Established Mo d MDM 30-39 Min Completed 03/07/2021 [id number] Diabetic Foot Exam Completed 05/24/2020 [id number] Colonoscopy Completed 05/20/2018 [id number] Bone Mineral Density Test [facility]ple [facility] Description No Information Available Encounters Type Date Location Provider Dx Diagnosis Office Visit 05/15/2021 1:30p Main Office Briana Friedmany, GEODETIC SURVEYOR K50.0 12 Crohn's disease of small intestine [...] adult medical examination without abnormal findings Paula Friedman, GEODETIC SURVEYOR 06/06/2021 E11.69 Type 2 diabetes mellitus with ot her specified complication Pleskach, Paula, GEODETIC SURVEYOR 06/06/2021 I10 Essential (primary) hypertension Pleskach, Paula, GEODETIC SURVEYOR 06/06/2021 E78.5 Hyperlipidemia, unspecified Ples kach, Paula, GEODETIC SURVEYOR 06/06/2021 D50.9 Iron deficiency anemia, unspecif ied Pleskach, Paula, GEODETIC SURVEYOR 06/06/2021 K50.012 Crohn's disease of small intesti ne with intestinal obstructi Pleskach, Paula, GEODETIC SURVEYOR 05/15/2021 K50.012 Crohn's disease of small intesti ne with intestinal obstructi Pleskach, Paula, GEODETIC SURVEYOR 05/15/2021 D50.9 Iron deficiency anemia, unspecif ied Pleskach, Paula, GEODETIC SURVEYOR 05/15/2021 E11.69 Type 2 diabetes mellitus with ot her specified complication Pleskach, Paula, GEODETIC SURVEYOR 05/15/2021 I10 Essential (primary) hypertension Pleskach, Paula, GEODETIC SURVEYOR 05/15/2021 E78.5 Hyperlipidemia, unspecified Ples kach, Paula, GEODETIC SURVEYOR 03/07/2021 E11.69 Type 2 diabetes mellitus with [...] disorder Halley Garcia M.D. Plan of Treatment 06/06/2021 - Paula Friedman FNP* Z00.00 Encounter for general adult medical examination without abnormal findings* Comments:* Health maintenance up to date. Overall doing well. IZABEL/PHQ 9/CAGE questionnaire reviewed. Discussed healthy lifestyle choices. * E11.69 Type 2 diabetes mellitus with other specified complication* New Labs:* Hemoglobin A1c, Scheduled: 11/26/21 * Follow up:* 6 months with labs * I10 Essential (primary) hypertension * E78.5 Hyperlipidemia, unspecified * D50.9 Iron deficiency anemia, unspecified* New Labs:* CBC With Differential, Scheduled: 11/26/21 * Ferritin, Scheduled: 11/26/21 * Total Iron Binding Capacit, Scheduled: 11/26/21 * K50.012 Crohn's disease of small intestine with intestinal obstructi Functional Status Functional Condition Comment Date Status Trifocal glasses Active Independent with all ADL's Activ e Mental Status Mental Condition Comment Date Status None Active Referrals Description No Information Available
--- OUTSIDE RECORDS SUMMARY | 2021-06-20 10:20 | CCD | Continuity of Care Document ---
Author Author Briseyda MARTINEZ MD Organization Unknown Address [address] [place] [address] Phone [phone] Care Team Providers Care Sap Solution Manager Consultant Name Role Phone Halley Garcia M.D. [facility] [phone] Problems Description No Active Problems Social History Type Date Description Comments Sex Unknown ETOH Use Denies alcohol use Tobacco Use Start: Unknown Non Smoker Recreational Drug Use Denies Drug Use Allergies and adverse reactions Active Allergies Criticality Reaction | Severity Comments Date Valium Unable to assess criticality 09/25/2015 Vioxx Unable to assess criticality 09/25/2015 Indocin Unable to assess criticality 09/25/2015 Cipro Unable to assess criticality 09/25/2015 Tomatoes Unable to assess criticality 09/25/2015 Remicade Unable to assess criticality | Severe fever/tachycardia/hospitalisation 02/2018 right after infusio 03/04/2018 Azathioprine Unable to assess criticality anemia 05/08/2021 Medications Active Medications SIG Qnty Indications Ordering Provide r Date Vitamin B-12 1000mcg Tablets Take One Tablet By Mouth Every Day 90tabs Hernan Martinez MD 03/[address] [place] Take Three Capsules By Mouth Every Day For Crohns Disease 90caps K50.018 Sis Martinez MD 12/15/2019 Stelara 90mg/ml Soln Prefill Syrin ge Inject 1 Syringe Subcutaneously Every 8 Weeks 2ml K50.018 Hernan Martinez MD 08/05/2018 Calcium 600 600mg Tablets valerie ly Unknown Farxiga 5mg Tablets q Am Unknown Metoprolol Tartrate 25mg Tablets bid Unknown Januvia 100mg Tablets daily Unknown Ondansetron HCL 4mg Tablets Take One Tablet By Mouth Every 12 Hours as Needed For Nausea 60tabs K50.00 Hernan Martinez MD Magnesium 250mg Tablets every day Unknown Pantoprazole Sodium 20mg Tablets D R 1 by mouth once a day Unknown Gabapentin 300mg Capsules one tablet 3 X A Day Unknown Iron Supplement 325(65Fe) mg Table ts 1 tab by mouth twice a day Unknown Remifemin 20mg Tablets twice a day Unknown Lipitor 10mg Tablets daily Unknown Metformin HCL 1000mg Tablets 1 tab by mouth twice a day Unknown Hydrochlorothiazide 25mg Tablets 1 by mouth every day Unknown Enalapril Maleate 10mg Tablets daily Unknown Vitamin D3 1000Unit Capsules daily Unknown History Medications Azathioprine 50mg Tablets take three tablets (=150 mg) by mouth every day 90tabs K50.018 Hernan welch MD 04/10/2021 - 05/08/2021 Azathioprine 50mg Tablets Take Two Tablets (=100 mg) By Mouth Every Day 60tabs K50.018 Hernan Martinez MD - 04/10/2021 Immunizations Description No Information Available Vital Signs Date Vital Result Comment 04/10/2021 11:33am BP Systolic 140 mmHg BP Diastolic 73 mmHg Height 57 inches 4'9" Weight 179.00 lb BMI (Body Mass Index) 38.7 kg/m2 [place] Body Weight 100 lb Weight 81.194 kg BSA (Body Surface Area) 1.72 m2 03/07/2021 3:46pm BP Systolic 144 mmHg BP Diastolic 82 mmHg Height 57 inches 4'9" Weight 185.00 lb BMI (Body Mass Index) 40.0 kg/m2 [place] Body Weight 100 lb Weight 83.916 kg BSA (Body Surface Area) 1.74 m2 Results Test Acquired Date Facility Test Result H/L Range Note Total Iron Binding Capacit 05/23/2021 [facility] Main Lab [address] [place] [address] [phone] Iron (Fe) 54 g/dL Normal 50-170 Total Iron Binding Capacity 403 g/dL Normal 250-450 Percent Saturation 13.4 % Normal 13.2-45.0 Vitamin B12 & Folate 05/23/2021 [facility] enter Main Lab [address] [place] [address] [phone] Vitamin B12 Level 643 pg/mL Normal 1 Folate 17.2 NG/ML Normal 2 CBC With Differential 05/23/2021 [facility] Main Lab [address] [place] [address] [phone] White Blood Count 5.8 10 Normal 4.0-10.0 [...] 36.0-66.0 Lymph % 14.7 % Low 24.0-44.0 [place] % 7.8 % Normal 2.0-8.0 Eos % 0.7 % Normal 0.0-3.0 Baso % 0.7 % Normal 0.0-1.0 Immature Granulocyte % 0.9 % Normal 0-3.0 Nucleated Red Blood Cell % 0.0 % Normal 0-0 Neutrophils # 4.3 10 Normal 1.5-8.5 Lymph # 0.9 10 Low 1.5-5.0 [place] # 0.5 10 Normal 0.0-0.8 Eos # 0.0 10 Normal 0.0-0.5 Baso # 0.0 10 Normal 0.0-0.2 Comprehensive Metabolic Profil 05/23/2021 [facility] Main Lab [address] [place] [address] [phone] Glucose, Fasting 119 mg/dL High 70-100 Blood Urea Nitrogen 18 mg/dL Normal 7-18 Creatinine For GFR 0.80 mg/dL Normal 0.55-1.30 Glomerular Filtration Rate > 60.0 Normal >45 3 Sodium Level 138 mEq/L Normal 136-145 Potassium [...] Ratio 1.2 Normal 1.2-2.2 CBC With Differential 04/07/2021 [facility] Main Lab [address] [place], [place] [id number] [phone] White Blood Count 5.9 10 Normal 4.0-10.0 [...] 36.0-66.0 Lymph % 18.2 % Low 24.0-44.0 [place] % 7.8 % Normal 2.0-8.0 Eos % 1.7 % Normal 0.0-3.0 Baso % 0.7 % Normal 0.0-1.0 Immature Granulocyte % 0.7 % Normal 0-3.0 Nucleated Red Blood Cell % 0.0 % Normal 0-0 Neutrophils # 4.2 10 Normal 1.5-8.5 Lymph # 1.1 10 Low 1.5-5.0 [place] # 0.5 10 Normal 0.0-0.8 Eos # 0.1 10 Normal 0.0-0.5 Baso # 0.0 10 Normal 0.0-0.2 Comprehensive Metabolic Profil 04/07/2021 [facility] Main Lab [address] [place] [address] [phone] Glucose, Fasting 111 mg/dL High 70-100 Blood Urea Nitrogen 14 mg/dL Normal 7-18 Creatinine For GFR 0.75 mg/dL Normal 0.55-1.30 Glomerular Filtration Rate > 60.0 Normal >45 4 Sodium Level 140 mEq/L Normal 136-145 Potassium [...] Normal 3.2-5.2 Albumin/Globulin Ratio 1.3 Normal 1.2-2.2 5 1 VITAMIN B12 NORMAL RANGE NORMAL 247 - 911 PG/ML INDETERMINATE 211 - 246 PG/ML DEFICIENT LESS THAN 211 PG/ML 2 FOLATE NORMAL RANGE NORMAL GREATER THAN 5.4 NG/ML INDETERMINATE 3.4-5.4 NG/ML DEFICIENT LESS THAN 3.4 NG/ML 3 Units are mL/min/1.73 m2 Chronic Kidney Disease Staging per NKF: Stage I & II GFR >=60 Normal to Mildly Decreased Stage III GFR 30-59 Moderately Decreased Stage IV GFR 15-29 Severely Decreased Stage V GFR <15 Very Little GFR Left ESRD GFR <15 on COLLAR STARCHER 4 Units are mL/min/1.73 m2 Chronic Kidney Disease Staging per NKF: Stage I & II GFR >=60 Normal to Mildly Decreased Stage III GFR 30-59 Moderately Decreased Stage IV GFR 15-29 Severely Decreased Stage V GFR <15 Very Little GFR Left ESRD GFR <15 on COLLAR STARCHER 5 05/08/21 (FriMay 08) 09:57 AM HERNAN MARTINEZ progressive decline in Hb---likely relatyed toAZA. Stop AZA--new allergy Procedures Date Code Description Status 04/10/2021 34378 Office/Outpatient Established Mo d MDM 30-39 Min Completed 03/07/2021 77811 Office/Outpatient Established Mo d MDM 30-39 Min Completed Medical Devices Description No Information Available Encounters Type Date Location Provider Dx Diagnosis Office Visit 04/10/2021 11:30a [facility] Pra miguelina Martinez MD K50.018 Crohn's disease of small int estine with other complication K56.699 Other intestnl obst unsp as to partial versus complete obst D51.9 Vitamin B12 deficiency anemi a, unspecified Z86.010 Personal history of colonic polyps Office Visit 03/07/2021 3:30p [facility] Pra miguelina Martinez MD K50.018 Crohn's disease of small int estine with other complication K56.699 Other intestnl obst unsp as to partial versus complete obst K56.600 Partial intestinal obstructi on, unspecified as to cause D51.9 Vitamin B12 deficiency anemi a, unspecified Assessments Date Code Description Provider 04/10/2021 K50.018 Crohn's disease of small intesti ne with other complication Hernan Martinez MD 04/10/2021 K56.699 Other intestinal obs truction unspecified as to partial versus complete obstruction Hernan Martinez MD 04/10/2021 D51.9 Vitamin B12 deficiency anemia, u nspecified Hernan Martinez MD 04/10/2021 Z86.010 Personal history of colonic poly ps Hernan Martinez MD 03/07/2021 K50.018 Crohn's disease of small intesti ne with other complication Hernan Martinez MD 03/07/2021 K56.699 Other intestinal obs truction unspecified as to partial versus complete obstruction Hernan Martinez MD 03/07/2021 K56.600 Partial intestinal obstruction, unspecified as to cause Hernan Martinez MD 03/07/2021 D51.9 Vitamin B12 deficiency anemia, u nspecified Hernan Martinez MD Plan of Treatment Future Appointment(s):* 06/06/2021 2:30 pm - Hernan Martinez MD at [facility] 04/10/2021 - Hernan Martinez MD* K50.018 Crohn's disease of small intestine with other complication * K56.699 Other intestinal obstruction unspecified as to partial versus complete obstruction * D51.9 Vitamin B12 deficiency anemia, unspecified * Z86.010 Personal history of colonic polyps * * New Medication:* Azathioprine 50 mg * New Labs:* [facility] Thiopurine [facility]oli, Ordered: 04/10/21 * Comments:* Pt has been doing OK. Her symptoms are in remission. i reviewed previous dosing of imuran, and found that 100 mg is suboptimallabs are fine. anemia is present, but I think this is a function of her crohns, rather than imuran effect * Follow up:* 4-5 weeks---do labs before * Recommendations:* 1) increase imuran to 150 mg q day.---needs TPM check with increased dose in 1 month 2) Cont Budesonide for now. plan to stop next visit 3) cont Stelara as ordered. 4) labs --do a few days before visit Functional Status Description No Information Available Mental Status Description No Information Available Referrals Description No Information Available
--- OUTSIDE RECORDS SUMMARY | 2021-06-20 10:21 | CCD | Continuity of Care Document ---
Author Organization Unknown Address Unknown Phone Unavailable Care Team Providers Care Surgical Dental Assistant Name Role Phone [facility] [phone] Problems Active Problems Provider Date Essential hypertension [...] Yes Smoke Alarms Carbon Monoxide Detector: Yes Allergies, Adverse Reactions, Alerts Active Allergies Criticality Reaction | Severity Comments [...] Martinez Unknown 01/26/2020 Enalapril Maleate 20mg Tablets Take One Tablet By Mouth daily 90tabs Halley Garcia M.D. 0 01/26/[address] Part 1 capsules by mouth three times a day Unknown 01/26/20 20 Ondansetron HCL 4mg Tablets one tab by mouth every 6 hour as needed for nausea Unknown 08/05/2019 Onetouch Delica Plus Lancets Extra Fine 33G Plus 33G Misc Once Daily as Directed 100units Halley aGrcia M.D. 06/04/2019 Ra Black Cohosh 200mg Capsules 1 cap po bid Unknown 04/21/2019 Simethicone 80mg Chewtabs 1 tab by mouth tid prn Unknown 10/01/2018 Calcium Citrate/Vitamin D3 315/250 Tablets 2 by mouth twice a day 360tabs Unknown 10/01 Magnesium Oxide 250mg Tablet take one tablet by mouth every day 30tabs Britany Napoles PA 01/29/2018 Pantoprazole Sodium 40mg Tablets D R [...] Mouth Every Day 90Halley Sadler M. D. 10/23/2015 Vitamin D 3 1000Iu [...] CPT Code Status Date Vaccine Lot # [id number] Given 05/08/2021 Influenza Virus Vaccine, Dandre drivalent,multidose vial 24104 Given 05/08/2021 Pneumococcal Vaccine U-Flu Given 08/20/2020 Influenza,Unspecified 35004 Given 08/09/2019 Prevnar 13 [id number] 14292 Given 06/21/2019 Influenza Virus Vaccine, Dandre drivalent,multidose vial 91279 Given 07/29/2018 Influenza Virus, quadravalent, age 6 Mo and up,Preservative free [id number] 08252 Given 05/07/2016 Influenza Vaccination [id number] 29018 Given 06/22/2015 Influenza Vaccination/preser vative free [id number] 37365 Given 02/24/2014 Zostavax U-HepB Given 11/17/2012 Hepatitis B,Unspecified U-HepB Given 07/07/2012 Hepatitis B,Unspecified 38110 Given 05/12/2012 Influenza Vaccination U-HepB Given 03/27/2012 Hepatitis B,Unspecified 10895 Given 05/02/2011 Influenza Vaccination 41274 Given 05/29/2010 Influenza Vaccination 52730 Given 04/13/2010 Pneumococcal Vaccine 17388 Given 04/13/2010 Boostrix (Tdap) Tetnus, Diphtheria Toxoids & Acellular Pertussis Vital Signs Date Vital Result Comment 05/15/2021 1:30pm BP Systolic 137 mmHg BP Diastolic 67 mmHg Heart Rate 94 /min Body Temperature 98.7 F Respiratory Rate 20 /min Height 57.25 inches 4'9.25" Weight 182.25 lb O2 % BldC Oximetry 98 % [place] Body Weight 100 lb BMI (Body Mass Index) 39.1 kg/m2 03/07/2021 9:19am BP Systolic 146 mmHg BP Diastolic 72 mmHg BP Systolic Recheck 129 mmHg BP Diastolic Recheck 68 mmHg Heart Rate 89 /min Body Temperature 96.8 F Respiratory Rate 17 /min Height 57.25 inches 4'9.25" Weight 186.12 lb O2 % BldC Oximetry 98 % [place] Body Weight 100 lb BMI (Body Mass Index) 39.9 kg/m2 Results Test Acquired Date Facility Test Result H/L Range Note Comprehensive Metabolic Profil 05/23/2021 [facility] [phone] Glucose, Fasting 117 mg/dL High 70-100 Blood [...] B12 & Folate 05/23/2021 Patient [facility] [place] [address] [phone] Vitamin B12 Level 643 pg/mL Normal 2 Folate 17.2 NG/ML Normal 3 Total Iron Binding Capacit 05/23/2021 [place] [address] [phone] Iron (Fe) 54 g/dL Normal 50-170 Total Iron Binding Capacity 403 g/dL Normal 250-450 Percent Saturation 13.4 % Normal 13.2-45.0 CBC With Differential 05/23/2021 [place] [address] [phone] White Blood Count 5.8 10 Normal 4.0-10.0 [...] 36.0-66.0 Lymph % 14.7 % Low 24.0-44.0 [place] % 7.8 % Normal 2.0-8.0 Eos % 0.7 % Normal 0.0-3.0 Baso % 0.7 % Normal 0.0-1.0 Immature Granulocyte % 0.9 % Normal 0-3.0 Nucleated Red Blood Cell % 0.0 % Normal 0-0 Neutrophils # 4.3 10 Normal 1.5-8.5 Lymph # 0.9 10 Low 1.5-5.0 [place] # 0.5 10 Normal 0.0-0.8 Eos # 0.0 10 Normal 0.0-0.5 Baso # 0.0 10 Normal 0.0-0.2 CBC With Differential 05/23/2021 [facility] [phone] White Blood Count 5.9 10 Normal 4.0-10.0 [...] 36.0-66.0 Lymph % 14.2 % Low 24.0-44.0 [place] % 7.4 % Normal 2.0-8.0 Eos % 0.8 % Normal 0.0-3.0 Baso % 0.5 % Normal 0.0-1.0 Immature Granulocyte % 0.7 % Normal 0-3.0 Nucleated Red Blood Cell % 0.0 % Normal 0-0 Neutrophils # 4.5 10 Normal 1.5-8.5 Lymph # 0.8 10 Low 1.5-5.0 [place] # 0.4 10 Normal 0.0-0.8 Eos # 0.1 10 Normal 0.0-0.5 Baso # 0.0 10 Normal 0.0-0.2 Hemoglobin A1c 05/23/2021 [facility] nter [phone] Hemoglobin A1c 6.1 % Normal 4 Estimated Average Glucose 128 mg/dL High 60-110 Comprehensive Metabolic Profil 05/23/[address] [place] [address] [phone] Glucose, Fasting 119 mg/dL High 70-100 Blood [...] W/ Reflex To Culture 05/07/2021 [place] [address] [phone] Appearance, Urine RFX CLEAR Normal Clear Color, Urine RFX YELLOW Normal Yellow PH,Urine RFX 8.0 units Normal 5.0-9.0 Specific [place] Ur Auto RFX 1.048 Normal 1.002-1.035 Protein, [...] 0-1 Laboratory test finding 05/07/2021 [place] [address] [phone] Lipase 115 U/L Normal 73-393 Lactic Acid Sepsis Protocol 2.7 mmol/L Critical high 0.4-2.0 6 Liver Profile 05/07/2021 [place] [address] [phone] Ast/Sgot 13 U/L Normal 7-37 Alt/SGPT 15 U/L Normal 12-78 Alkaline Phosphatase 66 U/L Normal 45-117 Bilirubin,Total 0.7 mg/dL Normal 0.2-1.0 Bilirubin,Direct 0.2 mg/dL Normal 0.0-0.2 Total Protein 6.0 GM/DL Low 6.4-8.2 Albumin 3.3 GM/DL Normal 3.2-5.2 Albumin/Globulin Ratio 1.2 Normal 1.2-2.2 Prothrombin Time/Inr 05/07/[address] [facility] [address] [phone] Prothrombin Time 12.9 seconds Normal 12.7-14.5 Inr 0.93 Normal 7 Istat Chem8+ Panel 05/07/[address] [facility] [place] [address] [phone] iSTAT HCT 22.0 % Low 38.0-51.0 iSTAT Glucose 120 mg/dL High 70-105 iSTAT Sodium 138 mEq/L Normal 136-145 iSTAT Potassium 3.9 mEq/L Normal 3.5-5.1 iSTAT CA++ 4.7 mg/dL Normal 4.5-5.3 iSTAT Chloride 100 mEq/L Normal 98-109 iSTAT Co2 26.0 MM/L Normal 23.0-27.0 iSTAT BUN 11 mg/dL Normal 8-26 iSTAT Creatinine 0.9 mg/dL Normal 0.6-1.3 CBC With Differential 05/07/[address] [facility] [place] [address] [phone] White Blood Count 6.6 10 Normal 4.0-10.0 [...] 36.0-66.0 Lymph % 14.1 % Low 24.0-44.0 [place] % 5.5 % Normal 2.0-8.0 Eos % 1.1 % Normal 0.0-3.0 Baso % 0.2 % Normal 0.0-1.0 Immature Granulocyte % 0.6 % Normal 0-3.0 Nucleated Red Blood Cell % 0.0 % Normal 0-0 Neutrophils # 5.2 10 Normal 1.5-8.5 Lymph # 0.9 10 Low 1.5-5.0 [place] # 0.4 10 Normal 0.0-0.8 Eos # 0.1 10 Normal 0.0-0.5 Baso # 0.0 10 Normal 0.0-0.2 Laboratory test finding 05/07/2021 [place] [address] [phone] Partial Thromboplastin Time 20.9 seconds Low 25 .9-37.0 CBC With Differential 04/07/2021 [place] [address] [phone] White Blood Count 5.9 10 Normal 4.0-10.0 [...] 36.0-66.0 Lymph % 18.2 % Low 24.0-44.0 [place] % 7.8 % Normal 2.0-8.0 Eos % 1.7 % Normal 0.0-3.0 Baso % 0.7 % Normal 0.0-1.0 Immature Granulocyte % 0.7 % Normal 0-3.0 Nucleated Red Blood Cell % 0.0 % Normal 0-0 Neutrophils # 4.2 10 Normal 1.5-8.5 Lymph # 1.1 10 Low 1.5-5.0 [place] # 0.5 10 Normal 0.0-0.8 Eos # 0.1 10 Normal 0.0-0.5 Baso # 0.0 10 Normal 0.0-0.2 Comprehensive Metabolic Profil 04/07/2021 [place] [address] [phone] Glucose, Fasting 111 mg/dL High 70-100 Blood [...] Ratio 1.3 Normal 1.2-2.2 Hemoglobin A1c 03/04/2021 [facility] [phone] Hemoglobin A1c 7.7 % Normal 9 Estimated Average Glucose 174 mg/dL High 60-110 Lipid Panel 03/04/2021 [facility] [phone] Triglycerides Level 366 mg/dL High <150 Cholesterol Level 165 mg/dL Normal <200 HDL Cholesterol 40 mg/dL Normal >40 LDL Cholesterol 52 mg/dL Normal <100 Non-HDL-C 125 mg/dL Normal Cholesterol Risk Ratio 4.125 Normal <5 Microalbumin Random 03/04/2021 [facility] [phone] Creatinine, Urine 77.3 mg/dL Normal Malb Urine Siemens 13.2 mg/L Normal [place]/Creat Ratio 17.0 MCG/MG Normal 0.0-30.0 10 Comprehensive Metabolic Profil 03/04/2021 [facility] [phone] Glucose, Fasting 161 mg/dL High 70-100 Blood [...] 1.2-2.2 Laboratory test finding 01/25/2021 [place] [address] [phone] Lactic Acid Sepsis Protocol 3.3 mmol/L Critical high 0 .4-2.0 12 Istat Chem8+ Panel 01/25/2021 [place] [address] [phone] iSTAT HCT 36.0 % Low 38.0-51.0 iSTAT Glucose 143 mg/dL High 70-105 iSTAT Sodium 138 mEq/L Normal 136-145 iSTAT Potassium 4.2 mEq/L Normal 3.5-5.1 iSTAT CA++ 4.7 mg/dL Normal 4.5-5.3 iSTAT Chloride 96 mEq/L Low 98-109 iSTAT Co2 29.0 MM/L High 23.0-27.0 iSTAT BUN 10 mg/dL Normal 8-26 iSTAT Creatinine 0.7 mg/dL Normal 0.6-1.3 CBC With Differential 01/25/2021 [place] [address] [phone] White Blood Count 9.2 10 Normal 4.0-10.0 [...] 36.0-66.0 Lymph % 11.8 % Low 24.0-44.0 [place] % 6.1 % Normal 2.0-8.0 Eos % 0.9 % Normal 0.0-3.0 Baso % 0.5 % Normal 0.0-1.0 Immature Granulocyte % 0.7 % Normal 0-3.0 Nucleated Red Blood Cell % 0.0 % Normal 0-0 Neutrophils # 7.4 10 Normal 1.5-8.5 Lymph # 1.1 10 Low 1.5-5.0 [place] # 0.6 10 Normal 0.0-0.8 Eos # 0.1 10 Normal 0.0-0.5 Baso # 0.1 10 Normal 0.0-0.2 Prothrombin Time/Inr 01/25/2021 [place] [address] [phone] Prothrombin Time 12.2 seconds Normal 12.5-14.3 Inr 0.89 Normal 13 Liver Profile 01/25/2021 [place] [address] [phone] Ast/Sgot 20 U/L Normal 7-37 Alt/SGPT 22 U/L Normal 12-78 Alkaline Phosphatase 87 U/L Normal 45-117 Bilirubin,Total 0.6 mg/dL Normal 0.2-1.0 Bilirubin,Direct 0.2 mg/dL Normal 0.0-0.2 Total Protein 6.7 GM/DL Normal 6.4-8.2 Albumin 3.7 GM/DL Normal 3.2-5.2 Albumin/Globulin Ratio 1.2 Normal 1.2-2.2 Laboratory test finding 01/25/2021 [place] [address] [phone] Lipase 114 U/L Normal 73-393 14 Cardiac Marker Panel 01/25/2021 [place] [address] [phone] CPK Creatine Phosphokinase 26 U/L Normal 26-19 [...] Little GFR Left ESRD GFR <15 on CREATIVE DEVELOPER 2 VITAMIN B12 NORMAL RANGE NORMAL 247 [...] Little GFR Left ESRD GFR <15 on CREATIVE DEVELOPER 6 Y/N query for Sepsis Lactate Rule: [...] Little GFR Left ESRD GFR <15 on CREATIVE DEVELOPER 9 REFERENCE RANGES: <=5.6% NORMAL 5.7-6.4% SUGGESTS IMPAIRED GLUCOSE META BOLISM/PREDIABETIC >= 6.5% ABNORMAL 10 THE [employer] [place] ATION STATES THAT MICROALBUMINURIA IS [...] Little GFR Left ESRD GFR <15 on CREATIVE DEVELOPER 12 Y/N query for Sepsis Lactate Rule: [...] 16 Troponin I Reference Interva l for Siemens [place] LOCI: 99th Percentile= 0.00-0.045 ng/ml Risk Stratification: <= 0.10 ng/ml Decreased Risk for Adverse Clinical Events. 0.10-1.50 ng/ml Increased Risk for Adv erse Clinical Events. Evaluation of additional criterion and/or repeat testing in 2-6 hours is suggested to rule out myocardial damage. >= 1.50 ng/ml Indicative of Myocardial Injury. Procedures Date Code Description Status 05/23/2021 [id number] Mammogram Completed 05/15/2021 72229 [place] Cre W/I 7 Days Of DC, Comm W/I 2 Dys Completed 03/07/2021 15702 Office/Outpatient Established Mo d MDM 30-39 Min Completed 03/07/2021 [id number] Diabetic Foot Exam Completed 05/24/2020 [id number] Colonoscopy Completed 04/21/2020 [id number] Mammogram Completed 05/20/2018 [id number] Bone Mineral Density Test Comple Team [employer] Description No Information Available Encounters Type Date Location Provider Dx Diagnosis Office Visit 05/15/2021 1:30p Main Office Paula Friedman, BOAT OUTBOARD ENGINE MECHANIC K50.0 12 Crohn's disease of small intestine [...] other disorder Assessments Date Code Description Provider 05/15/2021 K50.012 Crohn's disease of small intesti ne with intestinal obstructi Paula Friedman, BOAT OUTBOARD ENGINE MECHANIC 05/15/2021 D50.9 Iron deficiency anemia, unspecif ied Paula Friedman, BOAT OUTBOARD ENGINE MECHANIC 05/15/2021 E11.69 Type 2 diabetes mellitus with ot her specified complication Plerenatanara Paula, BOAT OUTBOARD ENGINE MECHANIC 05/15/2021 I10 Essential (primary) hypertension Plekarley Paula, BOAT OUTBOARD ENGINE MECHANIC 05/15/2021 E78.5 Hyperlipidemia, unspecified Ples Paula hoover, BOAT OUTBOARD ENGINE MECHANIC 03/07/2021 E11.69 Type 2 diabetes mellitus with [...] Garcia M.D. Plan of Treatment Future Appointment(s):* 06/06/2021 9:45 am - Paula Friedman FNP at Main Office 05/15/2021 - Paula Friedman FNP* K50.012 Crohn's disease of small intestine with intestinal obstructi* Comments:* f/u with GI * D50.9 Iron deficiency anemia, unspecified* Comments:* recheck CBC * E11.69 Type 2 diabetes mellitus with other specified complication* Comments:* check A1C * I10 Essential (primary) hypertension* Comments:* controlled, continue current medications * E78.5 Hyperlipidemia, unspecified* Comments:* continue statin Functional Status Functional Condition Comment Date Status Trifocal glasses Active Independent with all ADL's Activ e Mental Status Mental Condition Comment Date Status None Active Referrals Description No Information Available
--- OUTSIDE RECORDS SUMMARY | 2021-06-20 10:21 | CCD | Continuity of Care Document ---
Author Author Briseyda FRIEDMAN [facility] Organization Unknown Address [address] [place] [address] Phone [phone] Care Team Providers Care Collator Name Role Phone [facility] [phone] Problems Active Problems Provider Date Essential hypertension [...] CPT Code Status Date Vaccine Lot # [id number] Given 05/08/2021 Influenza Virus Vaccine, Dandre drivalent,multidose vial 85881 Given 05/08/2021 Pneumococcal Vaccine U-Flu Given 08/20/2020 Influenza,Unspecified 92819 Given 08/09/2019 Prevnar 13 [id number] 76269 Given 06/21/2019 Influenza Virus Vaccine, Dandre drivalent,multidose vial 96887 Given 07/29/2018 Influenza Virus, quadravalent, age 6 Mo and up,Preservative free [id number] 55740 Given 05/07/2016 Influenza Vaccination [id number] 17037 Given 06/22/2015 Influenza Vaccination/preser vative free [id number] 29748 Given 02/24/2014 Zostavax U-HepB Given 11/17/2012 Hepatitis B,Unspecified U-HepB Given 07/07/2012 Hepatitis B,Unspecified 64391 Given 05/12/2012 Influenza Vaccination U-HepB Given 03/27/2012 Hepatitis B,Unspecified 69777 Given 05/02/2011 Influenza Vaccination 67254 Given 05/29/2010 Influenza Vaccination 72056 Given 04/13/2010 Pneumococcal Vaccine 29344 Given 04/13/2010 Boostrix (Tdap) Tetnus, Diphtheria Toxoids & Acellular Pertussis Vital Signs Date Vital Result Comment 05/15/2021 1:30pm BP Systolic 137 mmHg BP Diastolic 67 mmHg Heart Rate 94 /min Body Temperature 98.7 F Respiratory Rate 20 /min Height 57.25 inches 4'9.25" Weight 182.25 lb O2 % BldC Oximetry 98 % [place] Body Weight 100 lb BMI (Body Mass Index) 39.1 kg/m2 03/07/2021 9:19am BP Systolic 146 mmHg BP Diastolic 72 mmHg BP Systolic Recheck 129 mmHg BP Diastolic Recheck 68 mmHg Heart Rate 89 /min Body Temperature 96.8 F Respiratory Rate 17 /min Height 57.25 inches 4'9.25" Weight 186.12 lb O2 % BldC Oximetry 98 % [place] Body Weight 100 lb BMI (Body Mass Index) 39.9 kg/m2 Results Test Acquired Date Facility Test Result H/L Range Note Comprehensive Metabolic Profil 05/23/2021 [facility] [phone] Glucose, Fasting 117 mg/dL High 70-100 Blood [...] Vitamin B12 & Folate 05/23/2021 Patient [place] [address] [phone] Vitamin B12 Level 643 pg/mL Normal 2 Folate 17.2 NG/ML Normal 3 Total Iron Binding Capacit 05/23/2021 [place] [address] [phone] Iron (Fe) 54 g/dL Normal 50-170 Total Iron Binding Capacity 403 g/dL Normal 250-450 Percent Saturation 13.4 % Normal 13.2-45.0 CBC With Differential 05/23/2021 Patient Service Ce nter [facility] [place], [place] [id number] [phone] White Blood Count 5.8 10 Normal 4.0-10.0 [...] 36.0-66.0 Lymph % 14.7 % Low 24.0-44.0 [place] % 7.8 % Normal 2.0-8.0 Eos % 0.7 % Normal 0.0-3.0 Baso % 0.7 % Normal 0.0-1.0 Immature Granulocyte % 0.9 % Normal 0-3.0 Nucleated Red Blood Cell % 0.0 % Normal 0-0 Neutrophils # 4.3 10 Normal 1.5-8.5 Lymph # 0.9 10 Low 1.5-5.0 [place] # 0.5 10 Normal 0.0-0.8 Eos # 0.0 10 Normal 0.0-0.5 Baso # 0.0 10 Normal 0.0-0.2 CBC With Differential 05/23/2021 [facility] [phone] White Blood Count 5.9 10 Normal 4.0-10.0 [...] 36.0-66.0 Lymph % 14.2 % Low 24.0-44.0 [place] % 7.4 % Normal 2.0-8.0 Eos % 0.8 % Normal 0.0-3.0 Baso % 0.5 % Normal 0.0-1.0 Immature Granulocyte % 0.7 % Normal 0-3.0 Nucleated Red Blood Cell % 0.0 % Normal 0-0 Neutrophils # 4.5 10 Normal 1.5-8.5 Lymph # 0.8 10 Low 1.5-5.0 [place] # 0.4 10 Normal 0.0-0.8 Eos # 0.1 10 Normal 0.0-0.5 Baso # 0.0 10 Normal 0.0-0.2 Hemoglobin A1c 05/23/2021 [facility] nter [phone] Hemoglobin A1c 6.1 % Normal 4 Estimated Average Glucose 128 mg/dL High 60-110 Comprehensive Metabolic Profil 05/23/[address] [place] [address] [phone] Glucose, Fasting 119 mg/dL High 70-100 Blood [...] W/ Reflex To Culture 05/07/2021 [place] [address] [phone] Appearance, Urine RFX CLEAR Normal Clear Color, Urine RFX YELLOW Normal Yellow PH,Urine RFX 8.0 units Normal 5.0-9.0 Specific [place] Ur Auto RFX 1.048 Normal 1.002-1.035 Protein, [...] 0-1 Laboratory test finding 05/07/2021 [place] [address] [phone] Lipase 115 U/L Normal 73-393 Lactic Acid Sepsis Protocol 2.7 mmol/L Critical high 0.4-2.0 6 Liver Profile 05/07/2021 [place] [address] [phone] Ast/Sgot 13 U/L Normal 7-37 Alt/SGPT 15 U/L Normal 12-78 Alkaline Phosphatase 66 U/L Normal 45-117 Bilirubin,Total 0.7 mg/dL Normal 0.2-1.0 Bilirubin,Direct 0.2 mg/dL Normal 0.0-0.2 Total Protein 6.0 GM/DL Low 6.4-8.2 Albumin 3.3 GM/DL Normal 3.2-5.2 Albumin/Globulin Ratio 1.2 Normal 1.2-2.2 Prothrombin Time/Inr 05/07/[address] [place] [address] [phone] Prothrombin Time 12.9 seconds Normal 12.7-14.5 Inr 0.93 Normal 7 Istat Chem8+ Panel 05/07/2021 [place] [address] [phone] iSTAT HCT 22.0 % Low 38.0-51.0 iSTAT Glucose 120 mg/dL High 70-105 iSTAT Sodium 138 mEq/L Normal 136-145 iSTAT Potassium 3.9 mEq/L Normal 3.5-5.1 iSTAT CA++ 4.7 mg/dL Normal 4.5-5.3 iSTAT Chloride 100 mEq/L Normal 98-109 iSTAT Co2 26.0 MM/L Normal 23.0-27.0 iSTAT BUN 11 mg/dL Normal 8-26 iSTAT Creatinine 0.9 mg/dL Normal 0.6-1.3 CBC With Differential 05/07/2021 [place] [address] [phone] White Blood Count 6.6 10 Normal 4.0-10.0 [...] 36.0-66.0 Lymph % 14.1 % Low 24.0-44.0 [place] % 5.5 % Normal 2.0-8.0 Eos % 1.1 % Normal 0.0-3.0 Baso % 0.2 % Normal 0.0-1.0 Immature Granulocyte % 0.6 % Normal 0-3.0 Nucleated Red Blood Cell % 0.0 % Normal 0-0 Neutrophils # 5.2 10 Normal 1.5-8.5 Lymph # 0.9 10 Low 1.5-5.0 [place] # 0.4 10 Normal 0.0-0.8 Eos # 0.1 10 Normal 0.0-0.5 Baso # 0.0 10 Normal 0.0-0.2 Laboratory test finding 05/07/2021 Patient Service [facility] [place] [id number] [phone] Partial Thromboplastin Time 20.9 seconds Low 25 .9-37.0 CBC With Differential 04/07/2021 [place] [address] [phone] White Blood Count 5.9 10 Normal 4.0-10.0 [...] 36.0-66.0 Lymph % 18.2 % Low 24.0-44.0 [place] % 7.8 % Normal 2.0-8.0 Eos % 1.7 % Normal 0.0-3.0 Baso % 0.7 % Normal 0.0-1.0 Immature Granulocyte % 0.7 % Normal 0-3.0 Nucleated Red Blood Cell % 0.0 % Normal 0-0 Neutrophils # 4.2 10 Normal 1.5-8.5 Lymph # 1.1 10 Low 1.5-5.0 [place] # 0.5 10 Normal 0.0-0.8 Eos # 0.1 10 Normal 0.0-0.5 Baso # 0.0 10 Normal 0.0-0.2 Comprehensive Metabolic Profil 04/07/[address] [place] [address] [phone] Glucose, Fasting 111 mg/dL High 70-100 Blood [...] Ratio 1.3 Normal 1.2-2.2 Hemoglobin A1c 03/04/2021 [facility] [phone] Hemoglobin A1c 7.7 % Normal 9 Estimated Average Glucose 174 mg/dL High 60-110 Lipid Panel [facility] [phone] Triglycerides Level 366 mg/dL High <150 Cholesterol Level 165 mg/dL Normal <200 HDL Cholesterol 40 mg/dL Normal >40 LDL Cholesterol 52 mg/dL Normal <100 Non-HDL-C 125 mg/dL Normal Cholesterol Risk Ratio 4.125 Normal <5 Microalbumin Random 03/04/2021 [facility] [phone] Creatinine, Urine 77.3 mg/dL Normal Malb Urine Siemens 13.2 mg/L Normal [place]/Creat Ratio 17.0 MCG/MG Normal 0.0-30.0 10 Comprehensive Metabolic Profil 03/04/2021 [facility] [phone] Glucose, Fasting 161 mg/dL High 70-100 Blood [...] 1.2-2.2 Laboratory test finding 01/25/2021 [place] [address] [phone] Lactic Acid Sepsis Protocol 3.3 mmol/L Critical high 0 .4-2.0 12 Istat Chem8+ Panel 01/25/2021 Patient Service [facility] [place] [address] [phone] iSTAT HCT 36.0 % Low 38.0-51.0 iSTAT Glucose 143 mg/dL High 70-105 iSTAT Sodium 138 mEq/L Normal 136-145 iSTAT Potassium 4.2 mEq/L Normal 3.5-5.1 iSTAT CA++ 4.7 mg/dL Normal 4.5-5.3 iSTAT Chloride 96 mEq/L Low 98-109 iSTAT Co2 29.0 MM/L High 23.0-27.0 iSTAT BUN 10 mg/dL Normal 8-26 iSTAT Creatinine 0.7 mg/dL Normal 0.6-1.3 CBC With Differential 01/25/2021 Patient Service Ce nter [facility] [place] [address] [phone] White Blood Count 9.2 10 Normal 4.0-10.0 [...] 36.0-66.0 Lymph % 11.8 % Low 24.0-44.0 [place] % 6.1 % Normal 2.0-8.0 Eos % 0.9 % Normal 0.0-3.0 Baso % 0.5 % Normal 0.0-1.0 Immature Granulocyte % 0.7 % Normal 0-3.0 Nucleated Red Blood Cell % 0.0 % Normal 0-0 Neutrophils # 7.4 10 Normal 1.5-8.5 Lymph # 1.1 10 Low 1.5-5.0 [place] # 0.6 10 Normal 0.0-0.8 Eos # 0.1 10 Normal 0.0-0.5 Baso # 0.1 10 Normal 0.0-0.2 Prothrombin Time/Inr 01/25/[address] [place] [address] [phone] Prothrombin Time 12.2 seconds Normal 12.5-14.3 Inr 0.89 Normal 13 Liver Profile 01/25/2021 [place] [address] [phone] Ast/Sgot 20 U/L Normal 7-37 Alt/SGPT 22 U/L Normal 12-78 Alkaline Phosphatase 87 U/L Normal 45-117 Bilirubin,Total 0.6 mg/dL Normal 0.2-1.0 Bilirubin,Direct 0.2 mg/dL Normal 0.0-0.2 Total Protein 6.7 GM/DL Normal 6.4-8.2 Albumin 3.7 GM/DL Normal 3.2-5.2 Albumin/Globulin Ratio 1.2 Normal 1.2-2.2 Laboratory test finding 01/25/2021 [place] [address] [phone] Lipase 114 U/L Normal 73-393 14 Cardiac Marker Panel 01/25/[address] [place] [address] [phone] CPK Creatine Phosphokinase 26 U/L Normal 26-19 [...] Little GFR Left ESRD GFR <15 on LIQUID HYDROGEN PLANT OPERATOR 2 VITAMIN B12 NORMAL RANGE NORMAL 247 [...] Little GFR Left ESRD GFR <15 on LIQUID HYDROGEN PLANT OPERATOR 6 Y/N query for Sepsis Lactate Rule: [...] Little GFR Left ESRD GFR <15 on LIQUID HYDROGEN PLANT OPERATOR 9 REFERENCE RANGES: <=5.6% NORMAL 5.7-6.4% SUGGESTS IMPAIRED GLUCOSE META BOLISM/PREDIABETIC >= 6.5% ABNORMAL 10 THE [place] [employer]OC[employer] ATION STATES THAT MICROALBUMINURIA IS [...] Little GFR Left ESRD GFR <15 on LIQUID HYDROGEN PLANT OPERATOR 12 Y/N query for Sepsis Lactate Rule: [...] Troponin I Reference Interva l for Siemens [employer] LOCI: 99th Percentile= 0.00-0.045 ng/ml Risk Stratification: <= 0.10 ng/ml Decreased Risk for Adverse Clinical Events. 0.10-1.50 ng/ml Increased Risk for Adv erse Clinical Events. Evaluation of additional criterion and/or repeat testing in 2-6 hours is suggested to rule out myocardial damage. >= 1.50 ng/ml Indicative of Myocardial Injury. Procedures Date Code Description Status 05/23/2021 [id number] Mammogram Completed 05/15/2021 [address] [place] Cre W/I 7 Days Of DC, Comm W/I 2 Dys Completed 03/07/2021 00557 Office/Outpatient Established Mo d MDM 30-39 Min Completed 03/07/2021 [id number] Diabetic Foot Exam Completed 05/24/2020 [id number] Colonoscopy Completed 04/21/2020 [id number] Mammogram Completed 05/20/2018 [id number] Bone Mineral Density Test Comple [employer] Description No Information Available Encounters Type Date Location Provider Dx Diagnosis Office Visit 05/15/2021 1:30p Main Office Elder Paula, DIESEL MOTOR MECHANIC K50.0 12 Crohn's disease of small [...] intesti ne with intestinal obstructi Paula Friedman, DIESEL MOTOR MECHANIC 05/15/2021 D50.9 Iron deficiency anemia, unspecif ied Paula Friedman, DIESEL MOTOR MECHANIC 05/15/2021 E11.69 Type 2 diabetes mellitus with ot her specified complication Paula Friedman, DIESEL MOTOR MECHANIC 05/15/2021 I10 Essential (primary) hypertension Paula Friedman, DIESEL MOTOR MECHANIC 05/15/2021 E78.5 Hyperlipidemia, unspecified Ples Paula hoover, DIESEL MOTOR MECHANIC 03/07/2021 E11.69 Type 2 diabetes mellitus [...]
--- OUTSIDE RECORDS SUMMARY | 2021-06-20 10:21 | CCD | Continuity of Care Document ---
Author Author Briseyda FRIEDMAN [facility] Organization Unknown Address [address] [place] [address] Phone [phone] Care Team Providers Care Mutton Puncher Name Role Phone [facility] [phone] Problems Active Problems Provider Date Essential hypertension [...] every day in the morning 90tabs Halley Gracia M.D. 03/07/2021 Januvia 100mg Tablets Take One Tablet By Mouth Every Day 90tabs E11.69 Halley Garcia M.D. 020 Glucometer Kit Machine use as directed to test glucose once daily randomly 1units E1169 Halley Garcia M.D. 01/31/2020 Stelara 90mg/ml Soln [...] CPT Code Status Date Vaccine Lot # [id number] Given 05/08/2021 Influenza Virus Vaccine, Dandre drivalent,multidose vial 59952 Given 05/08/2021 Pneumococcal Vaccine U-Flu Given 08/20/2020 Influenza,Unspecified 72225 Given 08/09/2019 Prevnar 13 [id number] 82253 Given 06/21/2019 Influenza Virus Vaccine, Dandre drivalent,multidose vial 14832 Given 07/29/2018 Influenza Virus, quadravalent, age 6 Mo and up,Preservative free [id number] 74243 Given 05/07/2016 Influenza Vaccination [id number] 79000 Given 06/22/2015 Influenza Vaccination/preser vative free [id number] 69873 Given 02/24/2014 Zostavax U-HepB Given 11/17/2012 Hepatitis B,Unspecified U-HepB Given 07/07/2012 Hepatitis B,Unspecified 80182 Given 05/12/2012 Influenza Vaccination U-HepB Given 03/27/2012 Hepatitis B,Unspecified 98629 Given 05/02/2011 Influenza Vaccination 84939 Given 05/29/2010 Influenza Vaccination 21255 Given 04/13/2010 Pneumococcal Vaccine 54012 Given 04/13/2010 Boostrix (Tdap) Tetnus, Diphtheria Toxoids & Acellular Pertussis Vital Signs Date Vital Result Comment 05/15/2021 1:30pm BP Systolic 137 mmHg BP Diastolic 67 mmHg Heart Rate 94 /min Body Temperature 98.7 F Respiratory Rate 20 /min Height 57.25 inches 4'9.25" Weight 182.25 lb O2 % BldC Oximetry 98 % [place] Body Weight 100 lb BMI (Body Mass Index) 39.1 kg/m2 03/07/2021 9:19am BP Systolic 146 mmHg BP Diastolic 72 mmHg BP Systolic Recheck 129 mmHg BP Diastolic Recheck 68 mmHg Heart Rate 89 /min Body Temperature 96.8 F Respiratory Rate 17 /min Height 57.25 inches 4'9.25" Weight 186.12 lb O2 % BldC Oximetry 98 % [place] Body Weight 100 lb BMI (Body Mass Index) 39.9 kg/m2 Results Test Acquired Date Facility Test Result H/L Range Note Istat Chem8+ Panel 05/07/[address] [facility] [place] [address] [phone] iSTAT HCT 22.0 % Low 38.0-51.0 iSTAT Glucose 120 mg/dL High 70-105 iSTAT Sodium 138 mEq/L Normal 136-145 iSTAT Potassium 3.9 mEq/L Normal 3.5-5.1 iSTAT CA++ 4.7 mg/dL Normal 4.5-5.3 iSTAT Chloride 100 mEq/L Normal 98-109 iSTAT Co2 26.0 MM/L Normal 23.0-27.0 iSTAT BUN 11 mg/dL Normal 8-26 iSTAT Creatinine 0.9 mg/dL Normal 0.6-1.3 CBC With Differential 05/07/[address]21 [address] [facility] [place] [address] [phone] White Blood Count 6.6 10 Normal 4.0-10.0 [...] 36.0-66.0 Lymph % 14.1 % Low 24.0-44.0 [place] % 5.5 % Normal 2.0-8.0 Eos % 1.1 % Normal 0.0-3.0 Baso % 0.2 % Normal 0.0-1.0 Immature Granulocyte % 0.6 % Normal 0-3.0 Nucleated Red Blood Cell % 0.0 % Normal 0-0 Neutrophils # 5.2 10 Normal 1.5-8.5 Lymph # 0.9 10 Low 1.5-5.0 [place] # 0.4 10 Normal 0.0-0.8 Eos # 0.1 10 Normal 0.0-0.5 Baso # 0.0 10 Normal 0.0-0.2 Prothrombin Time/Inr 05/07/2021 [place] [address] [phone] Prothrombin Time 12.9 seconds Normal 12.7-14.5 Inr 0.93 Normal 1 Laboratory test finding 05/07/2021 [place] [address] [phone] Partial Thromboplastin Time 20.9 seconds Low 25 .9-37.0 Liver Profile 05/07/2021 [place] [address] [phone] Ast/Sgot 13 U/L Normal 7-37 Alt/SGPT 15 U/L Normal 12-78 Alkaline Phosphatase 66 U/L Normal 45-117 Bilirubin,Total 0.7 mg/dL Normal 0.2-1.0 Bilirubin,Direct 0.2 mg/dL Normal 0.0-0.2 Total Protein 6.0 GM/DL Low 6.4-8.2 Albumin 3.3 GM/DL Normal 3.2-5.2 Albumin/Globulin Ratio 1.2 Normal 1.2-2.2 Laboratory test finding 05/07/2021 [place] [address] [phone] Lipase 115 U/L Normal 73-393 Lactic Acid Sepsis Protocol 2.7 mmol/L Critical high 0.4-2.0 2 Ua W/ Reflex To Culture 05/07/2021 [place] [address] [phone] Appearance, Urine RFX CLEAR Normal Clear Color, Urine RFX YELLOW Normal Yellow PH,Urine RFX 8.0 units Normal 5.0-9.0 Specific [place] Ur Auto RFX 1.048 Normal 1.002-1.035 Protein, [...] Urine Auto RFX 0 /LPF Normal 0-1 CBC With Differential 04/07/2021 [place] [address] [phone] White Blood Count 5.9 10 Normal 4.0-10.0 [...] 36.0-66.0 Lymph % 18.2 % Low 24.0-44.0 [place] % 7.8 % Normal 2.0-8.0 Eos % 1.7 % Normal 0.0-3.0 Baso % 0.7 % Normal 0.0-1.0 Immature Granulocyte % 0.7 % Normal 0-3.0 Nucleated Red Blood Cell % 0.0 % Normal 0-0 Neutrophils # 4.2 10 Normal 1.5-8.5 Lymph # 1.1 10 Low 1.5-5.0 [place] # 0.5 10 Normal 0.0-0.8 Eos # 0.1 10 Normal 0.0-0.5 Baso # 0.0 10 Normal 0.0-0.2 Comprehensive Metabolic Profil 04/07/[address] [place], [place] [address] [phone] Glucose, Fasting 111 mg/dL High 70-100 Blood Urea Nitrogen 14 mg/dL Normal 7-18 Creatinine For GFR 0.75 mg/dL Normal 0.55-1.30 Glomerular Filtration Rate > 60.0 Normal >45 3 Sodium Level 140 mEq/L Normal 136-145 Potassium [...] Normal 3.2-5.2 Albumin/Globulin Ratio 1.3 Normal 1.2-2.2 Lipid Panel 03/04/2021 [facility] nter [phone] Triglycerides Level 366 mg/dL High <150 Cholesterol Level 165 mg/dL Normal <200 HDL Cholesterol 40 mg/dL Normal >40 LDL Cholesterol 52 mg/dL Normal <100 Non-HDL-C 125 mg/dL Normal Cholesterol Risk Ratio 4.125 Normal <5 Comprehensive Metabolic Profil 03/04/2021 [facility] [phone] Glucose, Fasting 161 mg/dL High 70-100 Blood [...] Normal 3.2-5.2 Albumin/Globulin Ratio 1.2 Normal 1.2-2.2 Microalbumin Random 03/04/2021 [facility] [phone] Creatinine, Urine 77.3 mg/dL Normal Malb Urine Siemens 13.2 mg/L Normal [place]/Creat Ratio 17.0 MCG/MG Normal 0.0-30.0 5 Hemoglobin A1c 03/04/2021 [facility] [phone] Hemoglobin A1c 7.7 % Normal 6 Estimated Average Glucose 174 mg/dL High 60-110 Laboratory test finding 01/25/2021 [place] [address] [phone] Lactic Acid Sepsis Protocol 3.3 mmol/L Critical high 0 .4-2.0 7 Istat Chem8+ Panel 01/25/2021 [place] [address] [phone] iSTAT HCT 36.0 % Low 38.0-51.0 iSTAT Glucose 143 mg/dL High 70-105 iSTAT Sodium 138 mEq/L Normal 136-145 iSTAT Potassium 4.2 mEq/L Normal 3.5-5.1 iSTAT CA++ 4.7 mg/dL Normal 4.5-5.3 iSTAT Chloride 96 mEq/L Low 98-109 iSTAT Co2 29.0 MM/L High 23.0-27.0 iSTAT BUN 10 mg/dL Normal 8-26 iSTAT Creatinine 0.7 mg/dL Normal 0.6-1.3 CBC With Differential 01/25/2021 [place] [address] [phone] White Blood Count 9.2 10 Normal 4.0-10.0 [...] 36.0-66.0 Lymph % 11.8 % Low 24.0-44.0 [place] % 6.1 % Normal 2.0-8.0 Eos % 0.9 % Normal 0.0-3.0 Baso % 0.5 % Normal 0.0-1.0 Immature Granulocyte % 0.7 % Normal 0-3.0 Nucleated Red Blood Cell % 0.0 % Normal 0-0 Neutrophils # 7.4 10 Normal 1.5-8.5 Lymph # 1.1 10 Low 1.5-5.0 [place] # 0.6 10 Normal 0.0-0.8 Eos # 0.1 10 Normal 0.0-0.5 Baso # 0.1 10 Normal 0.0-0.2 Prothrombin Time/Inr 01/25/[address] [place] [address] [phone] Prothrombin Time 12.2 seconds Normal 12.5-14.3 Inr 0.89 Normal 8 Liver Profile 01/25/[address] [facility] [place] [address] [phone] Ast/Sgot 20 U/L Normal 7-37 Alt/SGPT 22 U/L Normal 12-78 Alkaline Phosphatase 87 U/L Normal 45-117 Bilirubin,Total 0.6 mg/dL Normal 0.2-1.0 Bilirubin,Direct 0.2 mg/dL Normal 0.0-0.2 Total Protein 6.7 GM/DL Normal 6.4-8.2 Albumin 3.7 GM/DL Normal 3.2-5.2 Albumin/Globulin Ratio 1.2 Normal 1.2-2.2 Laboratory test finding 01/25/2021 [place] [address] [phone] Lipase 114 U/L Normal 73-393 9 Cardiac Marker Panel 01/25/2021 [place] [address] [phone] CPK Creatine Phosphokinase 26 U/L Normal 26-19 2 CK-MB Value Mass < 1.0 NG/ML Normal <3.6 MB/CK Relative Index 3.85 Normal < Or =4 10 Troponin I < 0.02 NG/ML Normal < 0.10 11 1 THERAPUTIC HUMAN INR VALUES INDICATIONS NORMAL RANGES PROPHYLAXIS/TREATMENT OF: VENOUS THROMBOSIS 2.0-3.0 PULMONARY EMBOLISM 2.0-3.0 PREVENTION OF SYSTEMIC EMBOLISM FROM: TISSUE HEART VALVES 2.0-3.0 ACUTE MYOCARDIAL INFARCTION 2.0-3.0 VALVULAR HEART DISEASE 2.0-3.0 ATRIAL FIBRILLATION 2.0-3.0 MECHANICAL VALVES(HIGH RISK) 2.5-3.5 RECURRENT MYOCARDIAL INFARCTION 2.5-3.5 2 Y/N query for Sepsis Lactate Rule: Y 3 Units are mL/min/1.73 m2 Chronic Kidney Disease Staging per NKF: Stage I & II GFR >=60 Normal to Mildly Decreased Stage III GFR 30-59 Moderately Decreased Stage IV GFR 15-29 Severely Decreased Stage V GFR <15 Very Little GFR Left ESRD GFR <15 on GIMP BUTTONHOLE MACHINE OPERATOR 4 Units are mL/min/1.73 m2 Chronic Kidney Disease Staging per NKF: Stage I & II GFR >=60 Normal to Mildly Decreased Stage III GFR 30-59 Moderately Decreased Stage IV GFR 15-29 Severely Decreased Stage V GFR <15 Very Little GFR Left ESRD GFR <15 on GIMP BUTTONHOLE MACHINE OPERATOR 5 THE [place] [employer] ASSOC[employer] ATION STATES THAT MICROALBUMINURIA IS PRESENT IF THE MICROALBUMIN/CREATININE RATIO EXCEEDS 30 MCG/MG. THE THRESHOLD FOR CLINICAL ALBUMINURIA IS REACHED AT 300 MCG/MG. THE CLASSIFICATION OF A PATIENT SHOULD BE BASED UPON AT LEAST 2 OF 3 ABNORMAL RESULTS ON SPECIMENS COLLECTED WITHIN A 3 TO 6 MONTH TIME FRAME. 6 REFERENCE RANGES: <=5.6% NORMAL 5.7-6.4% SUGGESTS IMPAIRED GLUCOSE META BOLISM/PREDIABETIC >= 6.5% ABNORMAL 7 Y/N query for Sepsis Lactate Rule: Y 8 THERAPUTIC HUMAN INR VALUES INDICATIONS NORMAL RANGES PROPHYLAXIS/TREATMENT OF: VENOUS THROMBOSIS 2.0-3.0 PULMONARY EMBOLISM 2.0-3.0 PREVENTION OF SYSTEMIC EMBOLISM FROM: TISSUE HEART VALVES 2.0-3.0 ACUTE MYOCARDIAL INFARCTION 2.0-3.0 VALVULAR HEART DISEASE 2.0-3.0 ATRIAL FIBRILLATION 2.0-3.0 MECHANICAL VALVES(HIGH RISK) 2.5-3.5 RECURRENT MYOCARDIAL INFARCTION 2.5-3.5 9 MOBILAB COMMENT--- 10 DIAGNOSIS CRITERIA MMB ng/ml Relative Index (RI) NON-AMI < or = 5 N/A ANGLIN ZONE > 5 < or = 4 AMI > 5 > 4 11 Troponin I Reference Interva l for Siemens [place] LOCI: 99th Percentile= 0.00-0.045 ng/ml Risk Stratification: <= 0.10 ng/ml Decreased Risk for Adverse Clinical Events. 0.10-1.50 ng/ml Increased Risk for Adv erse Clinical Events. Evaluation of additional criterion and/or repeat testing in 2-6 hours is suggested to rule out myocardial damage. >= 1.50 ng/ml Indicative of Myocardial Injury. Procedures Date Code Description Status 03/07/2021 75866 Office/Outpatient Established Mo d MDM 30-39 Min Completed 03/07/2021 [id number] Diabetic Foot Exam Completed 05/24/2020 [id number] Colonoscopy Completed 04/21/2020 [id number] Mammogram Completed 05/20/2018 [id number] Bone Mineral Density Test Comple [employer] Description No Information Available Encounters Type Date Location Provider Dx Diagnosis Office Visit 03/07/2021 9:30a Main Office Halley [...] intesti ne with intestinal obstructi Paula Friedman, WELDING OPERATOR 05/15/2021 D50.9 Iron deficiency anemia, unspecif ied Paula Friedman, WELDING OPERATOR 05/15/2021 E11.69 Type 2 diabetes mellitus with ot her specified complication Paula Friedman, WELDING OPERATOR 05/15/2021 I10 Essential (primary) hypertension Paula Friedman, WELDING OPERATOR 05/15/2021 E78.5 Hyperlipidemia, unspecified Ples Paula hoover, WELDING OPERATOR 03/07/2021 E11.69 Type 2 diabetes mellitus with [...] disease of small intestine with intestinal obstructi * D50.9 Iron deficiency anemia, unspecified* New Labs:* CBC With Differential, Scheduled: 05/15/21 * Comprehensive Metabolic Profil, Scheduled: 05/15/21 * E11.69 Type 2 diabetes mellitus with other specified complication* New Labs:* Hemoglobin A1c, Scheduled: 05/15/21 * I10 Essential (primary) hypertension * E78.5 Hyperlipidemia, unspecified Functional Status Functional Condition Comment Date Status Trifocal glasses Active Independent with all ADL's Activ e Mental Status Mental Condition Comment Date Status None Active Referrals Description No Information Available
--- OUTSIDE RECORDS SUMMARY | 2021-06-20 10:21 | CCD | Continuity of Care Document ---
Author Author Briseyda MARTINEZ MD Organization Unknown Address [address] [place] [address] Phone [phone] Care Team Providers Care Data Entry Coordinator Name Role Phone Halley Garcia M.D. [facility] [phone] Problems Description No Active Problems Social History Type Date Description Comments Sex Unknown ETOH Use Denies alcohol use Tobacco Use Start: Unknown Non Smoker Recreational Drug Use Denies Drug Use Allergies, Adverse Reactions, Alerts Active Allergies Criticality [...] Martinez MD 03/[address] Dang Take Three Capsules By Mouth Every Day [...] lb BMI (Body Mass Index) 38.7 kg/m2 [place] Body Weight 100 lb Weight 81.194 kg BSA (Body Surface Area) 1.72 m2 03/07/2021 3:46pm BP Systolic 144 mmHg BP Diastolic 82 mmHg Height 57 inches 4'9" Weight 185.00 lb BMI (Body Mass Index) 40.0 kg/m2 [place] Body Weight 100 lb Weight 83.916 kg BSA (Body Surface Area) 1.74 m2 Results Test Acquired Date Facility Test Result H/L Range Note CBC With Differential 04/07/2021 [facility] Lab [address] [place] [address] [phone] White Blood Count 5.9 10 Normal 4.0-10.0 [...] 36.0-66.0 Lymph % 18.2 % Low 24.0-44.0 [place] % 7.8 % Normal 2.0-8.0 Eos % 1.7 % Normal 0.0-3.0 Baso % 0.7 % Normal 0.0-1.0 Immature Granulocyte % 0.7 % Normal 0-3.0 Nucleated Red Blood Cell % 0.0 % Normal 0-0 Neutrophils # 4.2 10 Normal 1.5-8.5 Lymph # 1.1 10 Low 1.5-5.0 [place] # 0.5 10 Normal 0.0-0.8 Eos # 0.1 10 Normal 0.0-0.5 Baso # 0.0 10 Normal 0.0-0.2 Comprehensive Metabolic Profil 04/07/2021 [facility] Main Lab [address] [place] [id number] [phone] Glucose, Fasting 111 mg/dL High 70-100 Blood [...] Normal 3.2-5.2 Albumin/Globulin Ratio 1.3 Normal 1.2-2.2 2 1 Units are mL/min/1.73 m2 Chronic Kidney Disease Staging per NKF: Stage I & II GFR >=60 Normal to Mildly Decreased Stage III GFR 30-59 Moderately Decreased Stage IV GFR 15-29 Severely Decreased Stage V GFR <15 Very Little GFR Left ESRD GFR <15 on LUNCHEONETTE MANAGER 2 05/08/21 (FriMay 08) 09:57 AM HERNAN MARTINEZ progressive decline in Hb---likely relatyed toAZA. Stop AZA--new allergy Procedures Date Code Description Status 04/10/2021 73247 Office/Outpatient Established Mo d MDM 30-39 Min Completed 03/07/2021 78071 Office/Outpatient Established Mo d MDM 30-39 Min Completed Medical Devices Description No Information Available Encounters Type Date Location Provider Dx Diagnosis Office Visit 04/10/2021 11:30a [facility] mig[facility]ina Martinez MD K50.018 Crohn's disease of small int estine with other complication K56.699 Other intestnl obst unsp as to partial versus complete obst D51.9 Vitamin B12 deficiency anemi a, unspecified Z86.010 Personal history of colonic polyps Office Visit 03/07/2021 3:30p [facility] mig[facility]ina Martinez MD K50.018 Crohn's [...] Martinez MD Plan of Treatment Future Appointment(s):* 05/28/2021 1:00 pm - Hernan Martinez MD at [facility] 04/10/2021 - Hernan Martinez MD* K50.018 Crohn's disease of small intestine with other complication * K56.699 Other intestinal obstruction unspecified as to partial versus complete obstruction * D51.9 Vitamin B12 deficiency anemia, unspecified * Z86.010 Personal history of colonic polyps * * New Medication:* Azathioprine 50 mg * New Labs:* Total Iron Binding Capacit, Ordered: 04/10/21 * Vitamin B12 & Folate, Ordered: 04/10/21 * CBC With Differential, Ordered: 04/10/21 * Comprehensive Metabolic Profil, Ordered: 04/10/21 * Prometheus Thiopurine Metaboli, Ordered: 04/10/21 * Comments:* [...]
--- OUTSIDE RECORDS SUMMARY | 2021-06-20 10:21 | CCD | Continuity of Care Document ---
Author Author Briseyda FRIEDMAN [facility] Organization Unknown Address [address] [place] [address] Phone [phone] Care Team Providers Care Performance Tester Name Role Phone [facility] [phone] [facility] [phone] Problems Active Problems Provider Date Essential hypertension [...] Halley Garcia M.D. 03/07/2021 Januvia 100mg Tablets Take One [...] CPT Code Status Date Vaccine Lot # [id number] Given 05/08/2021 Influenza Virus Vaccine, Dandre drivalent,multidose vial 17320 Given 05/08/2021 Pneumococcal Vaccine U-Flu Given 08/20/2020 Influenza,Unspecified 08055 Given 08/09/2019 Prevnar 13 [id number] 50839 Given 06/21/2019 Influenza Virus Vaccine, Dandre drivalent,multidose vial 36214 Given 07/29/2018 Influenza Virus, quadravalent, age 6 Mo and up,Preservative free [id number] 40662 Given 05/07/2016 Influenza Vaccination [id number] 34678 Given 06/22/2015 Influenza Vaccination/preser vative free [id number] 06566 Given 02/24/2014 Zostavax U-HepB Given 11/17/2012 Hepatitis B,Unspecified U-HepB Given 07/07/2012 Hepatitis B,Unspecified 42199 Given 05/12/2012 Influenza Vaccination U-HepB Given 03/27/2012 Hepatitis B,Unspecified 04829 Given 05/02/2011 Influenza Vaccination 81248 Given 05/29/2010 Influenza Vaccination 74567 Given 04/13/2010 Pneumococcal Vaccine 27786 Given 04/13/2010 Boostrix (Tdap) Tetnus, Diphtheria Toxoids & Acellular Pertussis Vital Signs Date Vital Result Comment 05/15/2021 1:30pm BP Systolic 137 mmHg BP Diastolic 67 mmHg Heart Rate 94 /min Body Temperature 98.7 F Respiratory Rate 20 /min Height 57.25 inches 4'9.25" Weight 182.25 lb O2 % BldC Oximetry 98 % [place] Body Weight 100 lb BMI (Body Mass Index) 39.1 kg/m2 03/07/2021 9:19am BP Systolic 146 mmHg BP Diastolic 72 mmHg BP Systolic Recheck 129 mmHg BP Diastolic Recheck 68 mmHg Heart Rate 89 /min Body Temperature 96.8 F Respiratory Rate 17 /min Height 57.25 inches 4'9.25" Weight 186.12 lb O2 % BldC Oximetry 98 % [place] Body Weight 100 lb BMI (Body Mass Index) 39.9 kg/m2 Results Test Acquired Date Facility Test Result H/L Range Note Istat Chem8+ Panel 05/07/2021 [facility] [place] [address] [phone] iSTAT HCT 22.0 % Low 38.0-51.0 iSTAT Glucose 120 mg/dL High 70-105 iSTAT Sodium 138 mEq/L Normal 136-145 iSTAT Potassium 3.9 mEq/L Normal 3.5-5.1 iSTAT CA++ 4.7 mg/dL Normal 4.5-5.3 iSTAT Chloride 100 mEq/L Normal 98-109 iSTAT Co2 26.0 MM/L Normal 23.0-27.0 iSTAT BUN 11 mg/dL Normal 8-26 iSTAT Creatinine 0.9 mg/dL Normal 0.6-1.3 CBC With Differential 05/07/2021 [facility] [place] [address] [phone] White Blood Count 6.6 10 Normal 4.0-10.0 [...] 36.0-66.0 Lymph % 14.1 % Low 24.0-44.0 [place] % 5.5 % Normal 2.0-8.0 Eos % 1.1 % Normal 0.0-3.0 Baso % 0.2 % Normal 0.0-1.0 Immature Granulocyte % 0.6 % Normal 0-3.0 Nucleated Red Blood Cell % 0.0 % Normal 0-0 Neutrophils # 5.2 10 Normal 1.5-8.5 Lymph # 0.9 10 Low 1.5-5.0 [place] # 0.4 10 Normal 0.0-0.8 Eos # 0.1 10 Normal 0.0-0.5 Baso # 0.0 10 Normal 0.0-0.2 Prothrombin Time/Inr 05/07/2021 [place] [address] [phone] Prothrombin Time 12.9 seconds Normal 12.7-14.5 Inr 0.93 Normal 1 Laboratory test finding 05/07/2021 [place] [address] [phone] Partial Thromboplastin Time 20.9 seconds Low 25 .9-37.0 Liver Profile 05/07/2021 [place] [address] [phone] Ast/Sgot 13 U/L Normal 7-37 Alt/SGPT 15 U/L Normal 12-78 Alkaline Phosphatase 66 U/L Normal 45-117 Bilirubin,Total 0.7 mg/dL Normal 0.2-1.0 Bilirubin,Direct 0.2 mg/dL Normal 0.0-0.2 Total Protein 6.0 GM/DL Low 6.4-8.2 Albumin 3.3 GM/DL Normal 3.2-5.2 Albumin/Globulin Ratio 1.2 Normal 1.2-2.2 Laboratory test finding 05/07/2021 [place] [address] [phone] Lipase 115 U/L Normal 73-393 Lactic Acid Sepsis Protocol 2.7 mmol/L Critical high 0.4-2.0 2 Ua W/ Reflex To Culture 05/07/2021 [place] [address] [phone] Appearance, Urine RFX CLEAR Normal Clear Color, Urine RFX YELLOW Normal Yellow PH,Urine RFX 8.0 units Normal 5.0-9.0 Specific [place] Ur Auto RFX 1.048 Normal 1.002-1.035 Protein, [...] With Differential 04/07/2021 [place] [address] [phone] White Blood Count 5.9 10 Normal 4.0-10.0 [...] 36.0-66.0 Lymph % 18.2 % Low 24.0-44.0 [place] % 7.8 % Normal 2.0-8.0 Eos % 1.7 % Normal 0.0-3.0 Baso % 0.7 % Normal 0.0-1.0 Immature Granulocyte % 0.7 % Normal 0-3.0 Nucleated Red Blood Cell % 0.0 % Normal 0-0 Neutrophils # 4.2 10 Normal 1.5-8.5 Lymph # 1.1 10 Low 1.5-5.0 [place] # 0.5 10 Normal 0.0-0.8 Eos # 0.1 10 Normal 0.0-0.5 Baso # 0.0 10 Normal 0.0-0.2 Comprehensive Metabolic Profil 04/07/[address] [place], [place] [id number] [phone] Glucose, Fasting 111 mg/dL High 70-100 Blood [...] Ratio 1.3 Normal 1.2-2.2 Lipid Panel 03/04/2021 [facility] nter [phone] Triglycerides Level 366 mg/dL High <150 Cholesterol Level 165 mg/dL Normal <200 HDL Cholesterol 40 mg/dL Normal >40 LDL Cholesterol 52 mg/dL Normal <100 Non-HDL-C 125 mg/dL Normal Cholesterol Risk Ratio 4.125 Normal <5 Comprehensive Metabolic Profil 03/04/2021 [facility] [phone] Glucose, Fasting 161 mg/dL High 70-100 Blood [...] Ratio 1.2 Normal 1.2-2.2 Microalbumin Random 03/04/2021 [facility] [phone] Creatinine, Urine 77.3 mg/dL Normal Malb Urine Siemens 13.2 mg/L Normal [place]/Creat Ratio 17.0 MCG/MG Normal 0.0-30.0 5 Hemoglobin A1c 03/04/2021 [facility] [phone] Hemoglobin A1c 7.7 % Normal 6 Estimated Average Glucose 174 mg/dL High 60-110 Laboratory test finding 01/25/2021 [place] [address] [phone] Lactic Acid Sepsis Protocol 3.3 mmol/L Critical high 0 .4-2.0 7 Istat Chem8+ Panel 01/25/2021 [place] [address] [phone] iSTAT HCT 36.0 % Low 38.0-51.0 iSTAT Glucose 143 mg/dL High 70-105 iSTAT Sodium 138 mEq/L Normal 136-145 iSTAT Potassium 4.2 mEq/L Normal 3.5-5.1 iSTAT CA++ 4.7 mg/dL Normal 4.5-5.3 iSTAT Chloride 96 mEq/L Low 98-109 iSTAT Co2 29.0 MM/L High 23.0-27.0 iSTAT BUN 10 mg/dL Normal 8-26 iSTAT Creatinine 0.7 mg/dL Normal 0.6-1.3 CBC With Differential 01/25/2021 [place] [address] [phone] White Blood Count 9.2 10 Normal 4.0-10.0 [...] 36.0-66.0 Lymph % 11.8 % Low 24.0-44.0 [place] % 6.1 % Normal 2.0-8.0 Eos % 0.9 % Normal 0.0-3.0 Baso % 0.5 % Normal 0.0-1.0 Immature Granulocyte % 0.7 % Normal 0-3.0 Nucleated Red Blood Cell % 0.0 % Normal 0-0 Neutrophils # 7.4 10 Normal 1.5-8.5 Lymph # 1.1 10 Low 1.5-5.0 [place] # 0.6 10 Normal 0.0-0.8 Eos # 0.1 10 Normal 0.0-0.5 Baso # 0.1 10 Normal 0.0-0.2 Prothrombin Time/Inr 01/25/[address] [place] [address] [phone] Prothrombin Time 12.2 seconds Normal 12.5-14.3 Inr 0.89 Normal 8 Liver Profile 01/25/2021 [facility] [place] [address] [phone] Ast/Sgot 20 U/L Normal 7-37 Alt/SGPT 22 U/L Normal 12-78 Alkaline Phosphatase 87 U/L Normal 45-117 Bilirubin,Total 0.6 mg/dL Normal 0.2-1.0 Bilirubin,Direct 0.2 mg/dL Normal 0.0-0.2 Total Protein 6.7 GM/DL Normal 6.4-8.2 Albumin 3.7 GM/DL Normal 3.2-5.2 Albumin/Globulin Ratio 1.2 Normal 1.2-2.2 Laboratory test finding 01/25/2021 [place] [address] [phone] Lipase 114 U/L Normal 73-393 9 Cardiac Marker Panel 01/25/2021 [place] [address] [phone] CPK Creatine Phosphokinase 26 U/L Normal 26-19 [...] Little GFR Left ESRD GFR <15 on INVESTOR RELATIONS ASSOCIATE 4 Units are mL/min/1.73 m2 Chronic Kidney Disease Staging per NKF: Stage I & II GFR >=60 Normal to Mildly Decreased Stage III GFR 30-59 Moderately Decreased Stage IV GFR 15-29 Severely Decreased Stage V GFR <15 Very Little GFR Left ESRD GFR <15 on INVESTOR RELATIONS ASSOCIATE 5 THE [place]OC[employer] ATION STATES THAT MICROALBUMINURIA IS [...] Troponin I Reference Interva l for Siemens [place] LOCI: 99th Percentile= 0.00-0.045 ng/ml Risk Stratification: <= 0.10 ng/ml Decreased Risk for Adverse Clinical Events. 0.10-1.50 ng/ml Increased Risk for Adv erse Clinical Events. Evaluation of additional criterion and/or repeat testing in 2-6 hours is suggested to rule out myocardial damage. >= 1.50 ng/ml Indicative of Myocardial Injury. Procedures Date Code Description Status 03/07/2021 28312 Office/Outpatient Established Mo d MDM 30-39 Min Completed 03/07/2021 [id number] Diabetic Foot Exam Completed 05/24/2020 [id number] Colonoscopy Completed 04/21/2020 [id number] Mammogram Completed 05/20/2018 [id number] Bone Mineral Density Test Comple [email or web address] Description No Information Available Encounters Type Date [...] intesti ne with intestinal obstructi Paula Friedman, FILM RECORDIST 05/15/2021 D50.9 Iron deficiency anemia, unspecif ied Paula Friedman, FILM RECORDIST 05/15/2021 E11.69 Type 2 diabetes mellitus with ot her specified complication Paula Friedman, FILM RECORDIST 05/15/2021 I10 Essential (primary) hypertension Paula Friedman, FILM RECORDIST 05/15/2021 E78.5 Hyperlipidemia, unspecified Ples Paula hoover, FILM RECORDIST 03/07/2021 E11.69 Type 2 diabetes mellitus with [...]
--- OUTSIDE RECORDS SUMMARY | 2021-06-20 10:21 | CCD | Continuity of Care Document ---
Author Author Briseyda FRIEDMAN [facility] Organization Unknown Address [address] [place] [address] Phone [phone] Care Team Providers Care Cage Loader Name Role Phone [facility] [phone] Problems Active Problems Provider Date Essential hypertension [...] CPT Code Status Date Vaccine Lot # [id number] Given 05/08/2021 Influenza Virus Vaccine, Dandre drivalent,multidose vial 66767 Given 05/08/2021 Pneumococcal Vaccine U-Flu Given 08/20/2020 Influenza,Unspecified 32603 Given 08/09/2019 Prevnar 13 [id number] 39805 Given 06/21/2019 Influenza Virus Vaccine, Dandre drivalent,multidose vial 36143 Given 07/29/2018 Influenza Virus, quadravalent, age 6 Mo and up,Preservative free [id number] 94974 Given 05/07/2016 Influenza Vaccination [id number] 26471 Given 06/22/2015 Influenza Vaccination/preser vative free [id number] 83735 Given 02/24/2014 Zostavax U-HepB Given 11/17/2012 Hepatitis B,Unspecified U-HepB Given 07/07/2012 Hepatitis B,Unspecified 38765 Given 05/12/2012 Influenza Vaccination U-HepB Given 03/27/2012 Hepatitis B,Unspecified 21801 Given 05/02/2011 Influenza Vaccination 48708 Given 05/29/2010 Influenza Vaccination 35633 Given 04/13/2010 Pneumococcal Vaccine 79446 Given 04/13/2010 Boostrix (Tdap) Tetnus, Diphtheria Toxoids & Acellular Pertussis Vital Signs Date Vital Result Comment 05/15/2021 1:30pm BP Systolic 137 mmHg BP Diastolic 67 mmHg Heart Rate 94 /min Body Temperature 98.7 F Respiratory Rate 20 /min Height 57.25 inches 4'9.25" Weight 182.25 lb O2 % BldC Oximetry 98 % [place] Body Weight 100 lb BMI (Body Mass Index) 39.1 kg/m2 03/07/2021 9:19am BP Systolic 146 mmHg BP Diastolic 72 mmHg BP Systolic Recheck 129 mmHg BP Diastolic Recheck 68 mmHg Heart Rate 89 /min Body Temperature 96.8 F Respiratory Rate 17 /min Height 57.25 inches 4'9.25" Weight 186.12 lb O2 % BldC Oximetry 98 % [place] Body Weight 100 lb BMI (Body Mass Index) 39.9 kg/m2 Results Test Acquired Date Facility Test Result H/L Range Note Istat Chem8+ Panel 05/07/2021 [facility] [place] [address] [phone] iSTAT HCT 22.0 % Low 38.0-51.0 iSTAT [...] 05/07/[address] [facility] [place] [address] [phone] White Blood Count 6.6 10 Normal 4.0-10.0 [...] 36.0-66.0 Lymph % 14.1 % Low 24.0-44.0 [place] % 5.5 % Normal 2.0-8.0 Eos % 1.1 % Normal 0.0-3.0 Baso % 0.2 % Normal 0.0-1.0 Immature Granulocyte % 0.6 % Normal 0-3.0 Nucleated Red Blood Cell % 0.0 % Normal 0-0 Neutrophils # 5.2 10 Normal 1.5-8.5 Lymph # 0.9 10 Low 1.5-5.0 [place] # 0.4 10 Normal 0.0-0.8 Eos # 0.1 10 Normal 0.0-0.5 Baso # 0.0 10 Normal 0.0-0.2 Prothrombin Time/Inr 05/07/2021 [place] [address] [phone] Prothrombin Time 12.9 seconds Normal 12.7-14.5 Inr 0.93 Normal 1 Laboratory test finding 05/07/2021 [place] [address] [phone] Partial Thromboplastin Time 20.9 seconds Low 25 .9-37.0 Liver Profile 05/07/2021 [place] [address] [phone] Ast/Sgot 13 U/L Normal 7-37 Alt/SGPT 15 U/L Normal 12-78 Alkaline Phosphatase 66 U/L Normal 45-117 Bilirubin,Total 0.7 mg/dL Normal 0.2-1.0 Bilirubin,Direct 0.2 mg/dL Normal 0.0-0.2 Total Protein 6.0 GM/DL Low 6.4-8.2 Albumin 3.3 GM/DL Normal 3.2-5.2 Albumin/Globulin Ratio 1.2 Normal 1.2-2.2 Laboratory test finding 05/07/2021 [place] [address] [phone] Lipase 115 U/L Normal 73-393 Lactic Acid Sepsis Protocol 2.7 mmol/L Critical high 0.4-2.0 2 Ua W/ Reflex To Culture 05/07/2021 [place] [address] [phone] Appearance, Urine RFX CLEAR Normal Clear Color, Urine RFX YELLOW Normal Yellow PH,Urine RFX 8.0 units Normal 5.0-9.0 Specific [place] Ur Auto RFX 1.048 Normal 1.002-1.035 Protein, [...] With Differential 04/07/2021 [place] [address] [phone] White Blood Count 5.9 10 Normal 4.0-10.0 [...] 36.0-66.0 Lymph % 18.2 % Low 24.0-44.0 [place] % 7.8 % Normal 2.0-8.0 Eos % 1.7 % Normal 0.0-3.0 Baso % 0.7 % Normal 0.0-1.0 Immature Granulocyte % 0.7 % Normal 0-3.0 Nucleated Red Blood Cell % 0.0 % Normal 0-0 Neutrophils # 4.2 10 Normal 1.5-8.5 Lymph # 1.1 10 Low 1.5-5.0 [place] # 0.5 10 Normal 0.0-0.8 Eos # 0.1 10 Normal 0.0-0.5 Baso # 0.0 10 Normal 0.0-0.2 Comprehensive Metabolic Profil 04/07/[address]21 Patient [place], [place] [id number] [phone] Glucose, Fasting 111 mg/dL High 70-100 Blood [...] Ratio 1.3 Normal 1.2-2.2 Lipid Panel 03/04/2021 [facility] nter [phone] Triglycerides Level 366 mg/dL High <150 Cholesterol Level 165 mg/dL Normal <200 HDL Cholesterol 40 mg/dL Normal >40 LDL Cholesterol 52 mg/dL Normal <100 Non-HDL-C 125 mg/dL Normal Cholesterol Risk Ratio 4.125 Normal <5 Comprehensive Metabolic Profil 03/04/2021 [facility] [phone] Glucose, Fasting 161 mg/dL High 70-100 Blood [...] Ratio 1.2 Normal 1.2-2.2 Microalbumin Random 03/04/2021 [facility] [phone] Creatinine, Urine 77.3 mg/dL Normal Malb Urine Siemens 13.2 mg/L Normal [place]/Creat Ratio 17.0 MCG/MG Normal 0.0-30.0 5 Hemoglobin A1c 03/04/2021 [facility] [phone] Hemoglobin A1c 7.7 % Normal 6 Estimated Average Glucose 174 mg/dL High 60-110 Laboratory test finding 01/25/2021 [place] [address] [phone] Lactic Acid Sepsis Protocol 3.3 mmol/L Critical high 0 .4-2.0 7 Istat Chem8+ Panel 01/25/2021 [place] [address] [phone] iSTAT HCT 36.0 % Low 38.0-51.0 iSTAT Glucose 143 mg/dL High 70-105 iSTAT Sodium 138 mEq/L Normal 136-145 iSTAT Potassium 4.2 mEq/L Normal 3.5-5.1 iSTAT CA++ 4.7 mg/dL Normal 4.5-5.3 iSTAT Chloride 96 mEq/L Low 98-109 iSTAT Co2 29.0 MM/L High 23.0-27.0 iSTAT BUN 10 mg/dL Normal 8-26 iSTAT Creatinine 0.7 mg/dL Normal 0.6-1.3 CBC With Differential 01/25/2021 [place] [address] [phone] White Blood Count 9.2 10 Normal 4.0-10.0 [...] 36.0-66.0 Lymph % 11.8 % Low 24.0-44.0 [place] % 6.1 % Normal 2.0-8.0 Eos % 0.9 % Normal 0.0-3.0 Baso % 0.5 % Normal 0.0-1.0 Immature Granulocyte % 0.7 % Normal 0-3.0 Nucleated Red Blood Cell % 0.0 % Normal 0-0 Neutrophils # 7.4 10 Normal 1.5-8.5 Lymph # 1.1 10 Low 1.5-5.0 [place] # 0.6 10 Normal 0.0-0.8 Eos # 0.1 10 Normal 0.0-0.5 Baso # 0.1 10 Normal 0.0-0.2 Prothrombin Time/Inr 01/25/[address] [place] [address] [phone] Prothrombin Time 12.2 seconds Normal 12.5-14.3 Inr 0.89 Normal 8 Liver Profile 01/25/[address] [facility] [place] [address] [phone] Ast/Sgot 20 U/L Normal 7-37 Alt/SGPT 22 U/L Normal 12-78 Alkaline Phosphatase 87 U/L Normal 45-117 Bilirubin,Total 0.6 mg/dL Normal 0.2-1.0 Bilirubin,Direct 0.2 mg/dL Normal 0.0-0.2 Total Protein 6.7 GM/DL Normal 6.4-8.2 Albumin 3.7 GM/DL Normal 3.2-5.2 Albumin/Globulin Ratio 1.2 Normal 1.2-2.2 Laboratory test finding 01/25/2021 [place] [address] [phone] Lipase 114 U/L Normal 73-393 9 Cardiac Marker Panel 01/25/2021 [place] [address] [phone] CPK Creatine Phosphokinase 26 U/L Normal 26-19 [...] Little GFR Left ESRD GFR <15 on FOAMING MACHINE OPERATOR 4 Units are mL/min/1.73 m2 Chronic Kidney Disease Staging per NKF: Stage I & II GFR >=60 Normal to Mildly Decreased Stage III GFR 30-59 Moderately Decreased Stage IV GFR 15-29 Severely Decreased Stage V GFR <15 Very Little GFR Left ESRD GFR <15 on FOAMING MACHINE OPERATOR 5 THE [employer] [employer] ATION STATES THAT MICROALBUMINURIA IS [...] Troponin I Reference Interva l for Siemens [place] LOCI: 99th Percentile= 0.00-0.045 ng/ml Risk Stratification: <= 0.10 ng/ml Decreased Risk for Adverse Clinical Events. 0.10-1.50 ng/ml Increased Risk for Adv erse Clinical Events. Evaluation of additional criterion and/or repeat testing in 2-6 hours is suggested to rule out myocardial damage. >= 1.50 ng/ml Indicative of Myocardial Injury. Procedures Date Code Description Status 05/15/2021 26671 [place] Cre W/I 7 Days Of DC, Comm W/I 2 Dys Completed 03/07/2021 87832 Office/Outpatient Established Mo d MDM 30-39 Min Completed 03/07/2021 [id number] Diabetic Foot Exam Completed 05/24/2020 [id number] Colonoscopy Completed 04/21/2020 [id number] Mammogram Completed 05/20/2018 [id number] Bone Mineral Density Test Comple [place] Description No Information Available Encounters Type Date [...] intesti ne with intestinal obstructi Paula Friedman, FOLDER OPERATOR 05/15/2021 D50.9 Iron deficiency anemia, unspecif ied Paula Friedman, FOLDER OPERATOR 05/15/2021 E11.69 Type 2 diabetes mellitus with ot her specified complication Paula Friedman, FOLDER OPERATOR 05/15/2021 I10 Essential (primary) hypertension aPula Friedman, FOLDER OPERATOR 05/15/2021 E78.5 Hyperlipidemia, unspecified Ples Paula hoover, FOLDER OPERATOR 03/07/2021 E11.69 Type 2 diabetes mellitus [...] Friedman FNP at Main Office 05/15/2021 - Pleskach, Paula, FOLDER OPERATOR* K50.012 Crohn's disease of small intestine with intestinal obstructi* Comments:* f/u with GI * D50.9 Iron deficiency anemia, unspecified* New Labs:* CBC With Differential, Scheduled: 05/15/21 * Comprehensive Metabolic Profil, Scheduled: 05/15/21 * Comments:* recheck CBC * E11.69 Type 2 diabetes mellitus with other specified complication* New Labs:* Hemoglobin A1c, Scheduled: 05/15/21 * Comments:* check A1C * I10 Essential (primary) hypertension* Comments:* controlled, continue current medications * E78.5 Hyperlipidemia, unspecified* Comments:* continue statin Functional Status Functional Condition Comment Date Status Trifocal glasses Active Independent with all ADL's Activ e Mental Status Mental Condition Comment Date Status None Active Referrals Description No Information Available
--- OUTSIDE RECORDS SUMMARY | 2021-06-20 10:21 | CCD | Continuity of Care Document ---
Author Author Briseyda FRIEDMAN [facility] Organization Unknown Address [address] [place] [address] Phone [phone] Care Team Providers Care Store Stocker Name Role Phone [facility]M [phone] Problems Active Problems Provider Date Essential hypertension [...] CPT Code Status Date Vaccine Lot # [id number] Given 05/08/2021 Influenza Virus Vaccine, Dandre drivalent,multidose vial 27602 Given 05/08/2021 Pneumococcal Vaccine U-Flu Given 08/20/2020 Influenza,Unspecified 07415 Given 08/09/2019 Prevnar 13 [id number] 10988 Given 06/21/2019 Influenza Virus Vaccine, Dandre drivalent,multidose vial 55446 Given 07/29/2018 Influenza Virus, quadravalent, age 6 Mo and up,Preservative free [id number] 62441 Given 05/07/2016 Influenza Vaccination [id number] 41394 Given 06/22/2015 Influenza Vaccination/preser vative free [id number] 35215 Given 02/24/2014 Zostavax U-HepB Given 11/17/2012 Hepatitis B,Unspecified U-HepB Given 07/07/2012 Hepatitis B,Unspecified 63492 Given 05/12/2012 Influenza Vaccination U-HepB Given 03/27/2012 Hepatitis B,Unspecified 15692 Given 05/02/2011 Influenza Vaccination 03205 Given 05/29/2010 Influenza Vaccination 72640 Given 04/13/2010 Pneumococcal Vaccine 06588 Given 04/13/2010 Boostrix (Tdap) Tetnus, Diphtheria Toxoids & Acellular Pertussis Vital Signs Date Vital Result Comment 05/15/2021 1:30pm BP Systolic 137 mmHg BP Diastolic 67 mmHg Heart Rate 94 /min Body Temperature 98.7 F Respiratory Rate 20 /min Height 57.25 inches 4'9.25" Weight 182.25 lb O2 % BldC Oximetry 98 % Inlet Body Weight 100 lb BMI (Body Mass Index) 39.1 kg/m2 03/07/2021 9:19am BP Systolic 146 mmHg BP Diastolic 72 mmHg BP Systolic Recheck 129 mmHg BP Diastolic Recheck 68 mmHg Heart Rate 89 /min Body Temperature 96.8 F Respiratory Rate 17 /min Height 57.25 inches 4'9.25" Weight 186.12 lb O2 % BldC Oximetry 98 % Inlet Body Weight 100 lb BMI (Body Mass Index) 39.9 kg/m2 Results Test Acquired Date Facility Test Result H/L Range Note Istat Chem8+ Panel 05/07/[facility] [place] [address] [phone] iSTAT HCT 22.0 % Low 38.0-51.0 iSTAT [...] Service Ce nter [facility] [place] [address] [phone] White Blood Count 6.6 10 Normal 4.0-10.0 [...] 36.0-66.0 Lymph % 14.1 % Low 24.0-44.0 [place] % 5.5 % Normal 2.0-8.0 Eos % 1.1 % Normal 0.0-3.0 Baso % 0.2 % Normal 0.0-1.0 Immature Granulocyte % 0.6 % Normal 0-3.0 Nucleated Red Blood Cell % 0.0 % Normal 0-0 Neutrophils # 5.2 10 Normal 1.5-8.5 Lymph # 0.9 10 Low 1.5-5.0 [place] # 0.4 10 Normal 0.0-0.8 Eos # 0.1 10 Normal 0.0-0.5 Baso # 0.0 10 Normal 0.0-0.2 Prothrombin Time/Inr 05/07/2021 [place] [address] [phone] Prothrombin Time 12.9 seconds Normal 12.7-14.5 Inr 0.93 Normal 1 Laboratory test finding 05/07/2021 [place] [address] [phone] Partial Thromboplastin Time 20.9 seconds Low 25 .9-37.0 Liver Profile 05/07/2021 [place] [address] [phone] Ast/Sgot 13 U/L Normal 7-37 Alt/SGPT 15 U/L Normal 12-78 Alkaline Phosphatase 66 U/L Normal 45-117 Bilirubin,Total 0.7 mg/dL Normal 0.2-1.0 Bilirubin,Direct 0.2 mg/dL Normal 0.0-0.2 Total Protein 6.0 GM/DL Low 6.4-8.2 Albumin 3.3 GM/DL Normal 3.2-5.2 Albumin/Globulin Ratio 1.2 Normal 1.2-2.2 Laboratory test finding 05/07/2021 [place] [address] [phone] Lipase 115 U/L Normal 73-393 Lactic Acid Sepsis Protocol 2.7 mmol/L Critical high 0.4-2.0 2 Ua W/ Reflex To Culture 05/07/2021 [place] [address] [phone] Appearance, Urine RFX CLEAR Normal Clear Color, Urine RFX YELLOW Normal Yellow PH,Urine RFX 8.0 units Normal 5.0-9.0 Specific [place] Ur Auto RFX 1.048 Normal 1.002-1.035 Protein, [...] With Differential 04/07/2021 [place] [address] [phone] White Blood Count 5.9 10 Normal 4.0-10.0 [...] 36.0-66.0 Lymph % 18.2 % Low 24.0-44.0 [place] % 7.8 % Normal 2.0-8.0 Eos % 1.7 % Normal 0.0-3.0 Baso % 0.7 % Normal 0.0-1.0 Immature Granulocyte % 0.7 % Normal 0-3.0 Nucleated Red Blood Cell % 0.0 % Normal 0-0 Neutrophils # 4.2 10 Normal 1.5-8.5 Lymph # 1.1 10 Low 1.5-5.0 [place] # 0.5 10 Normal 0.0-0.8 Eos # 0.1 10 Normal 0.0-0.5 Baso # 0.0 10 Normal 0.0-0.2 Comprehensive Metabolic Profil 04/07/[address]21 [address] [place], [place] [id number] [phone] Glucose, Fasting 111 mg/dL High 70-100 Blood [...] Ratio 1.3 Normal 1.2-2.2 Lipid Panel 03/04/2021 [facility] nter [phone] Triglycerides Level 366 mg/dL High <150 Cholesterol Level 165 mg/dL Normal <200 HDL Cholesterol 40 mg/dL Normal >40 LDL Cholesterol 52 mg/dL Normal <100 Non-HDL-C 125 mg/dL Normal Cholesterol Risk Ratio 4.125 Normal <5 Comprehensive Metabolic Profil 03/04/2021 [facility] [phone] Glucose, Fasting 161 mg/dL High 70-100 Blood [...] Ratio 1.2 Normal 1.2-2.2 Microalbumin Random 03/04/2021 [facility] [phone] Creatinine, Urine 77.3 mg/dL Normal Malb Urine Siemens 13.2 mg/L Normal Higinio/Creat Ratio 17.0 MCG/MG Normal 0.0-30.0 5 Hemoglobin A1c 03/04/2021 [facility] [phone] Hemoglobin A1c 7.7 % Normal 6 Estimated Average Glucose 174 mg/dL High 60-110 Laboratory test finding 01/25/2021 [facility] [place] [address] [phone] Lactic Acid Sepsis Protocol 3.3 mmol/L Critical high 0 .4-2.0 7 Istat Chem8+ Panel 01/25/2021 [place] [address] [phone] iSTAT HCT 36.0 % Low 38.0-51.0 iSTAT Glucose 143 mg/dL High 70-105 iSTAT Sodium 138 mEq/L Normal 136-145 iSTAT Potassium 4.2 mEq/L Normal 3.5-5.1 iSTAT CA++ 4.7 mg/dL Normal 4.5-5.3 iSTAT Chloride 96 mEq/L Low 98-109 iSTAT Co2 29.0 MM/L High 23.0-27.0 iSTAT BUN 10 mg/dL Normal 8-26 iSTAT Creatinine 0.7 mg/dL Normal 0.6-1.3 CBC With Differential 01/25/2021 [place] [address] [phone] White Blood Count 9.2 10 Normal 4.0-10.0 [...] 36.0-66.0 Lymph % 11.8 % Low 24.0-44.0 [place] % 6.1 % Normal 2.0-8.0 Eos % 0.9 % Normal 0.0-3.0 Baso % 0.5 % Normal 0.0-1.0 Immature Granulocyte % 0.7 % Normal 0-3.0 Nucleated Red Blood Cell % 0.0 % Normal 0-0 Neutrophils # 7.4 10 Normal 1.5-8.5 Lymph # 1.1 10 Low 1.5-5.0 [place] # 0.6 10 Normal 0.0-0.8 Eos # 0.1 10 Normal 0.0-0.5 Baso # 0.1 10 Normal 0.0-0.2 Prothrombin Time/Inr 01/25/[address] [place] [address] [phone] Prothrombin Time 12.2 seconds Normal 12.5-14.3 Inr 0.89 Normal 8 Liver Profile 01/25/2021 Patient Service Cent er [facility] [place] [address] [phone] Ast/Sgot 20 U/L Normal 7-37 Alt/SGPT 22 U/L Normal 12-78 Alkaline Phosphatase 87 U/L Normal 45-117 Bilirubin,Total 0.6 mg/dL Normal 0.2-1.0 Bilirubin,Direct 0.2 mg/dL Normal 0.0-0.2 Total Protein 6.7 GM/DL Normal 6.4-8.2 Albumin 3.7 GM/DL Normal 3.2-5.2 Albumin/Globulin Ratio 1.2 Normal 1.2-2.2 Laboratory test finding 01/25/2021 [place] [address] [phone] Lipase 114 U/L Normal 73-393 9 Cardiac Marker Panel 01/25/2021 [place] [address] [phone] CPK Creatine Phosphokinase 26 U/L Normal 26-19 [...] Little GFR Left ESRD GFR <15 on TANK TRUCK OPERATOR 4 Units are mL/min/1.73 m2 Chronic Kidney Disease Staging per NKF: Stage I & II GFR >=60 Normal to Mildly Decreased Stage III GFR 30-59 Moderately Decreased Stage IV GFR 15-29 Severely Decreased Stage V GFR <15 Very Little GFR Left ESRD GFR <15 on TANK TRUCK OPERATOR 5 THE [place] [employer] ATION STATES THAT MICROALBUMINURIA IS [...] Troponin I Reference Interva l for Siemens [place] LOCI: 99th Percentile= 0.00-0.045 ng/ml Risk Stratification: <= 0.10 ng/ml Decreased Risk for Adverse Clinical Events. 0.10-1.50 ng/ml Increased Risk for Adv erse Clinical Events. Evaluation of additional criterion and/or repeat testing in 2-6 hours is suggested to rule out myocardial damage. >= 1.50 ng/ml Indicative of Myocardial Injury. Procedures Date Code Description Status 03/07/2021 41974 Office/Outpatient Established Mo d MDM 30-39 Min Completed 03/07/2021 [id number] Diabetic Foot Exam Completed 05/24/2020 [id number] Colonoscopy Completed 04/21/2020 [id number] Mammogram Completed 05/20/2018 [id number] Bone Mineral Density Test Comple [facility] Description No Information Available Encounters Type Date [...] intesti ne with intestinal obstructi Paula Friedman, [employer] REPAIRER 05/15/2021 D50.9 Iron deficiency anemia, unspecif ied Paula Friedman, [employer] REPAIRER 05/15/2021 E11.69 Type 2 diabetes mellitus with ot her specified complication Paula Friedman, [employer] REPAIRER 05/15/2021 I10 Essential (primary) hypertension Paula Friedman, [employer] REPAIRER 05/15/2021 E78.5 Hyperlipidemia, unspecified Ples Paula hoover, [employer] REPAIRER 03/07/2021 E11.69 Type 2 diabetes mellitus with [...]
--- OUTSIDE RECORDS SUMMARY | 2021-06-20 10:22 | CCD | Continuity of Care Document ---
Author Author Briseyda KO M.D. Organization Unknown Address [address] [place] [address] Phone [phone] Care Team Providers Care Nurse Leader Name Role Phone [facility] [phone] [facility] [phone] Problems Active Problems Provider Date Essential hypertension [...] Use Denies Drug Use Smoking Status Reviewed: 03/07/21 Patient is a former smoker sm oked [...] Sugar Three Times A Day 300units Halley Ko M.D. 05/12/2021 Farxiga 5mg Tablets take one tablet by mouth every day in the morning 90tabs Halley Ko M.D. 03/07/2021 Januvia 100mg Tablets Take One Tablet By Mouth Every Day 90tabs E11.69 Halley Ko M.D. 020 Glucometer Kit Machine use as directed to test glucose once daily randomly 1units E1169 Halley Ko M.D. 01/31/2020 Stelara 90mg/ml Soln Prefill Syrin ge given by injection every [address] Martinez Unknown 01/26/2020 Enalapril Maleate 20mg Tablets Take One Tablet By Mouth daily 90tabs Halley Ko M.D. 0 01/26/[address] Part 1 capsules by mouth three times a day Unknown 01/26/20 20 Ondansetron HCL 4mg Tablets one tab by mouth every 6 hour as needed for nausea Unknown 08/05/2019 Onetouch Delica Plus Lancets Extra Fine 33G Plus 33G Misc Once Daily as Directed 100units Halley Ko M.D. 06/04/2019 Ra Black Cohosh 200mg Capsules [...] Tablet By Mouth Every Day 90tabs Halley Ko M.D. 06/26/2016 Gabapentin 300mg Capsules Take One Capsule By Mouth Three Times A Day 270caps M12.9 Halley Ko M .D. 05/07/2016 One Touch Test Strips Ultra Misc use to check blood sugar 3 times a day 360units E11.9 Halley Ko M.D. 02/23/2016 Atorvastatin Calcium 10mg Tablets Take One Tablet By Mouth Every Day 90tabs Halley Ko M. D. 10/23/2015 Vitamin D 3 1000Iu [...] Tablet By Mouth Every Day 90tabs Halley Ko M. D. Voltaren 1% Gel apply a pea size amount to the affected low back up to 4 times a day Unknow n Tylenol 325mg Capsules one-two tabs by mouth every 4-6 hour daily as needed for pain Un known Metoprolol Tartrate 25mg Tablets take one tablet by mouth twice a day Unknown Immunizations CPT Code Status Date Vaccine Lot # [id number] Given 08/20/2020 Influenza,Unspecified [id number] Given 08/09/2019 Prevnar 13 [id number] 16918 Given 06/21/2019 Influenza Virus Vaccine, Dandre drivalent,multidose vial 04931 Given 07/29/2018 Influenza Virus, quadravalent, age 6 Mo and up,Preservative free [id number] 76653 Given 05/07/2016 Influenza Vaccination [id number] 56677 Given 06/22/2015 Influenza Vaccination/preser vative free [id number] 88794 Given 02/24/2014 Zostavax U-HepB Given 11/17/2012 Hepatitis B,Unspecified U-HepB Given 07/07/2012 Hepatitis B,Unspecified 30831 Given 05/12/2012 Influenza Vaccination U-HepB Given 03/27/2012 Hepatitis B,Unspecified 88743 Given 05/02/2011 Influenza Vaccination 94306 Given 05/29/2010 Influenza Vaccination 62235 Given 04/13/2010 Pneumococcal Vaccine 59149 Given 04/13/2010 Boostrix (Tdap) Tetnus, Diphtheria Toxoids & Acellular Pertussis Vital Signs Date Vital Result Comment 03/07/2021 9:19am BP Systolic 146 mmHg BP Diastolic 72 mmHg BP Systolic Recheck 129 mmHg BP Diastolic Recheck 68 mmHg Heart Rate 89 /min Body Temperature 96.8 F Respiratory Rate 17 /min Height 57.25 inches 4'9.25" Weight 186.12 lb O2 % BldC Oximetry 98 % [place] Body Weight 100 lb BMI (Body Mass Index) 39.9 kg/m2 08/30/2020 2:47pm BP Systolic 200 mmHg BP Diastolic 98 mmHg BP Systolic Recheck 174 mmHg BP Diastolic Recheck 82 mmHg Heart Rate 82 /min Body Temperature 97.1 F Respiratory Rate 16 /min Height 57.25 inches 4'9.25" Weight 181.25 lb O2 % BldC Oximetry 98 % [place] Body Weight 100 lb BMI (Body Mass Index) 38.9 kg/m2 Results Test Acquired Date Facility Test Result H/L Range Note Istat Chem8+ Panel 05/07/2021 Patient Service Cent [facility] [place] [address] [phone] iSTAT HCT 22.0 % Low 38.0-51.0 iSTAT Glucose 120 mg/dL High 70-105 iSTAT Sodium 138 mEq/L Normal 136-145 iSTAT Potassium 3.9 mEq/L Normal 3.5-5.1 iSTAT CA++ 4.7 mg/dL Normal 4.5-5.3 iSTAT Chloride 100 mEq/L Normal 98-109 iSTAT Co2 26.0 MM/L Normal 23.0-27.0 iSTAT BUN 11 mg/dL Normal 8-26 iSTAT Creatinine 0.9 mg/dL Normal 0.6-1.3 CBC With Differential 05/07/2021 Patient Service Ce nter [facility] [place] [address] [phone] White Blood Count 6.6 10 Normal 4.0-10.0 [...] 36.0-66.0 Lymph % 14.1 % Low 24.0-44.0 [place] % 5.5 % Normal 2.0-8.0 Eos % 1.1 % Normal 0.0-3.0 Baso % 0.2 % Normal 0.0-1.0 Immature Granulocyte % 0.6 % Normal 0-3.0 Nucleated Red Blood Cell % 0.0 % Normal 0-0 Neutrophils # 5.2 10 Normal 1.5-8.5 Lymph # 0.9 10 Low 1.5-5.0 [place] # 0.4 10 Normal 0.0-0.8 Eos # 0.1 10 Normal 0.0-0.5 Baso # 0.0 10 Normal 0.0-0.2 Prothrombin Time/Inr 05/07/2021 [place] [address] [phone] Prothrombin Time 12.9 seconds Normal 12.7-14.5 Inr 0.93 Normal 1 Laboratory test finding 05/07/2021 [place] [address] [phone] Partial Thromboplastin Time 20.9 seconds Low 25 .9-37.0 Liver Profile 05/07/2021 Patient Service [facility] [place] [address] [phone] Ast/Sgot 13 U/L Normal 7-37 Alt/SGPT 15 U/L Normal 12-78 Alkaline Phosphatase 66 U/L Normal 45-117 Bilirubin,Total 0.7 mg/dL Normal 0.2-1.0 Bilirubin,Direct 0.2 mg/dL Normal 0.0-0.2 Total Protein 6.0 GM/DL Low 6.4-8.2 Albumin 3.3 GM/DL Normal 3.2-5.2 Albumin/Globulin Ratio 1.2 Normal 1.2-2.2 Laboratory test finding 05/07/2021 Patient Service [facility] [place], [place] [address] [phone] Lipase 115 U/L Normal 73-393 Lactic Acid Sepsis Protocol 2.7 mmol/L Critical high 0.4-2.0 2 Ua W/ Reflex To Culture 05/07/2021 [place] [address] [phone] Appearance, Urine RFX CLEAR Normal Clear Color, Urine RFX YELLOW Normal Yellow PH,Urine RFX 8.0 units Normal 5.0-9.0 Specific [place] Ur Auto RFX 1.048 Normal 1.002-1.035 Protein, [...] CBC With Differential 04/07/2021 [place] [address] [phone] White Blood Count 5.9 10 Normal 4.0-10.0 [...] 36.0-66.0 Lymph % 18.2 % Low 24.0-44.0 [place] % 7.8 % Normal 2.0-8.0 Eos % 1.7 % Normal 0.0-3.0 Baso % 0.7 % Normal 0.0-1.0 Immature Granulocyte % 0.7 % Normal 0-3.0 Nucleated Red Blood Cell % 0.0 % Normal 0-0 Neutrophils # 4.2 10 Normal 1.5-8.5 Lymph # 1.1 10 Low 1.5-5.0 [place] # 0.5 10 Normal 0.0-0.8 Eos # 0.1 10 Normal 0.0-0.5 Baso # 0.0 10 Normal 0.0-0.2 Comprehensive Metabolic Profil 04/07/[address]21 [address] [place], [place] [address] [phone] Glucose, Fasting 111 mg/dL High 70-100 Blood [...] Ratio 1.3 Normal 1.2-2.2 Lipid Panel 03/04/2021 [facility] nter [phone] Triglycerides Level 366 mg/dL High <150 Cholesterol Level 165 mg/dL Normal <200 HDL Cholesterol 40 mg/dL Normal >40 LDL Cholesterol 52 mg/dL Normal <100 Non-HDL-C 125 mg/dL Normal Cholesterol Risk Ratio 4.125 Normal <5 Comprehensive Metabolic Profil 03/04/2021 [facility] [phone] Glucose, Fasting 161 mg/dL High 70-100 Blood [...] Ratio 1.2 Normal 1.2-2.2 Microalbumin Random 03/04/2021 [facility] nter [phone] Creatinine, Urine 77.3 mg/dL Normal Malb Urine Siemens 13.2 mg/L Normal Higinio/Creat Ratio 17.0 MCG/MG Normal 0.0-30.0 5 Hemoglobin A1c 03/04/2021 [facility] nter [phone] Hemoglobin A1c 7.7 % Normal 6 Estimated Average Glucose 174 mg/dL High 60-110 Laboratory test finding 01/25/2021 [place] [address] [phone] Lactic Acid Sepsis Protocol 3.3 mmol/L Critical high 0 .4-2.0 7 Istat Chem8+ Panel 01/25/2021 Patient Service [place], [place] [address] [phone] iSTAT HCT 36.0 % Low 38.0-51.0 iSTAT Glucose 143 mg/dL High 70-105 iSTAT Sodium 138 mEq/L Normal 136-145 iSTAT Potassium 4.2 mEq/L Normal 3.5-5.1 iSTAT CA++ 4.7 mg/dL Normal 4.5-5.3 iSTAT Chloride 96 mEq/L Low 98-109 iSTAT Co2 29.0 MM/L High 23.0-27.0 iSTAT BUN 10 mg/dL Normal 8-26 iSTAT Creatinine 0.7 mg/dL Normal 0.6-1.3 CBC With Differential 01/25/2021 [place] [address] [phone] White Blood Count 9.2 10 Normal 4.0-10.0 [...] 36.0-66.0 Lymph % 11.8 % Low 24.0-44.0 [place] % 6.1 % Normal 2.0-8.0 Eos % 0.9 % Normal 0.0-3.0 Baso % 0.5 % Normal 0.0-1.0 Immature Granulocyte % 0.7 % Normal 0-3.0 Nucleated Red Blood Cell % 0.0 % Normal 0-0 Neutrophils # 7.4 10 Normal 1.5-8.5 Lymph # 1.1 10 Low 1.5-5.0 [place] # 0.6 10 Normal 0.0-0.8 Eos # 0.1 10 Normal 0.0-0.5 Baso # 0.1 10 Normal 0.0-0.2 Prothrombin Time/Inr 01/25/[address] [place] [address] [phone] Prothrombin Time 12.2 seconds Normal 12.5-14.3 Inr 0.89 Normal 8 Liver Profile 01/25/2021 [place] [address] [phone] Ast/Sgot 20 U/L Normal 7-37 Alt/SGPT 22 U/L Normal 12-78 Alkaline Phosphatase 87 U/L Normal 45-117 Bilirubin,Total 0.6 mg/dL Normal 0.2-1.0 Bilirubin,Direct 0.2 mg/dL Normal 0.0-0.2 Total Protein 6.7 GM/DL Normal 6.4-8.2 Albumin 3.7 GM/DL Normal 3.2-5.2 Albumin/Globulin Ratio 1.2 Normal 1.2-2.2 Laboratory test finding 01/25/2021 [place] [address] [phone] Lipase 114 U/L Normal 73-393 9 Cardiac Marker Panel 01/25/2021 [place] [address] [phone] CPK Creatine Phosphokinase 26 U/L Normal 26-19 [...] Little GFR Left ESRD GFR <15 on BOBBIN HAULER 4 Units are mL/min/1.73 m2 Chronic Kidney Disease Staging per NKF: Stage I & II GFR >=60 Normal to Mildly Decreased Stage III GFR 30-59 Moderately Decreased Stage IV GFR 15-29 Severely Decreased Stage V GFR <15 Very Little GFR Left ESRD GFR <15 on BOBBIN HAULER 5 THE [place] [employer]ES ASSOC[employer] ATION STATES THAT MICROALBUMINURIA IS [...] 11 Troponin I Reference Interva l for [place] [employer] LOCI: 99th Percentile= 0.00-0.045 ng/ml Risk Stratification: <= 0.10 ng/ml Decreased Risk for Adverse Clinical Events. 0.10-1.50 ng/ml Increased Risk for Adv erse Clinical Events. Evaluation of additional criterion and/or repeat testing in 2-6 hours is suggested to rule out myocardial damage. >= 1.50 ng/ml Indicative of Myocardial Injury. Procedures Date Code Description Status 03/07/2021 94633 Office/Outpatient Established Mo d MDM 30-39 Min Completed 03/07/2021 [id number] Diabetic Foot Exam Completed 05/24/2020 [id number] Colonoscopy Completed 04/21/2020 [id number] Mammogram Completed 05/20/2018 [id number] Bone Mineral Density Test Comple [facility] Description No Information Available Encounters Type Date Location Provider Dx Diagnosis Office Visit 03/07/2021 9:30a Main Office Halley Ko M.D. E 11.69 Type 2 diabetes mellitus with other specified complication K50.012 Crohn's disease of small int estine w intestinal obstruction I10 Essential (primary) hyperten dexter E78.5 Hyperlipidemia, unspecified D50.9 Iron deficiency anemia, unsp ecified Z13.89 Encounter for screening for other disorder Assessments Date Code Description Provider 03/07/2021 E11.69 Type 2 diabetes mellitus with ot her specified complication Halley Ko M.D. 03/07/2021 K50.012 Crohn's disease of small intesti ne with intestinal obstructi Halley Ko M.D. 03/07/2021 I10 Essential (primary) hypertension Halley Ko M.D. 03/07/2021 E78.5 Hyperlipidemia, unspecified Will Halley palmer M.D. 03/07/2021 D50.9 Iron deficiency anemia, unspecif ied Halley Ko M.D. 03/07/2021 Z13. Encounter for screening for othe r disorder Halley Ko M.D. Plan of Treatment Future Appointment(s):* 05/15/2021 1:30 pm - Paula Friedman FNP at Main Office * 06/06/2021 9:45 am - Paula Friedman FNP at Main Office 03/07/2021 - Halley Ko M.D.* E11.69 Type 2 diabetes mellitus with other specified complication* New Labs:* Hemoglobin A1c, Scheduled: 05/31/21 * Comments:* try to add another oral, Farxiga ordered. * Follow up:* 3 months, with labs * K50.012 Crohn's disease of small intestine with intestinal obstructi* Comments:* On chronic steroid, affecting sugars. * I10 Essential (primary) hypertension * E78.5 Hyperlipidemia, unspecified* Recommendations:* continue statin * D50.9 Iron deficiency anemia, unspecified* Follow up:* . * Z.89 Encounter for screening for other disorder * All * New Medication:* Farxiga 5 mg - take one tablet by mouth every day in the morning Functional Status Functional Condition Comment Date Status Trifocal glasses Active Independent with all ADL's Activ e Mental Status Mental Condition Comment Date Status None Active Referrals Description No Information Available
--- OUTSIDE RECORDS SUMMARY | 2021-06-20 10:22 | CCD | Continuity of Care Document ---
Author Author Briseyda MARTINEZ MD Organization Unknown Address [address] [place] [address] Phone [phone] Care Team Providers Care Residential Lawn Specialist Name Role Phone Halley Garcia M.D. [facility] [phone] Problems Description No Active Problems Social History [...] Severe fever/tachycardia/hospitalisation 02/2018 right after infusio 03/04/2018 Medications Active Medications SIG Qnty Indications Ordering Provide r Date Azathioprine 50mg Tablets take three tablets (=150 mg) by mouth every day 90tabs K50.018 Mauro welch MD 04/10/2021 Vitamin B-12 1000mcg Tablets Take One Tablet By Mouth Every Day 90tabs Mauro Martinez MD 03/[address] Part Take Three Capsules By Mouth Every Day For Crohns Disease 90caps K50.018 Sis Martinez MD 12/15/2019 Stelara 90mg/ml Soln Prefill Syrin ge Inject 1 Syringe Subcutaneously Every 8 Weeks 2ml K50.018 Mauro Martinez MD 08/05/2018 Iron Supplement 325(65Fe) mg Table ts 1 tab by mouth twice a day Unknown Farxiga 5mg Tablets q Am Unknown Metoprolol Tartrate 25mg Tablets bid Unknown Januvia 100mg Tablets daily Unknown Ondansetron HCL 4mg Tablets Take One Tablet By Mouth Every 12 Hours as Needed For Nausea 60tabs K50.00 Mauro Martinez MD Magnesium 250mg Tablets every day Unknown Pantoprazole Sodium 20mg Tablets D R 1 by mouth once a day Unknown Gabapentin 300mg Capsules one tablet 3 X A Day Unknown Calcium 600 600mg Tablets valerie ly Unknown Remifemin 20mg Tablets twice a day Unknown Lipitor 10mg Tablets daily Unknown Metformin HCL 1000mg Tablets 1 tab by mouth twice a day Unknown Hydrochlorothiazide 25mg Tablets 1 by mouth every day Unknown Enalapril Maleate 10mg Tablets daily Unknown Vitamin D3 1000Unit Capsules daily Unknown History Medications Azathioprine 50mg Tablets Take Two Tablets (=100 mg) By Mouth Every Day 60tabs K50.018 Mauro Martinez MD - 04/10/2021 Immunizations Description No Information Available Vital Signs Date Vital Result Comment 04/10/2021 11:33am BP Systolic 140 mmHg BP Diastolic 73 mmHg Height 57 inches 4'9" Weight 179.00 lb BMI (Body Mass Index) 38.7 kg/m2 [place] Body Weight 100 lb Weight 81.194 kg BSA (Body Surface Area) 1.72 m2 03/07/2021 3:46pm BP Systolic 144 mmHg BP Diastolic 82 mmHg Height 57 inches 4'9" Weight 185.00 lb BMI (Body Mass Index) 40.0 kg/m2 [place] Body Weight 100 lb Weight 83.916 kg BSA (Body Surface Area) 1.74 m2 Results Test Acquired Date Facility Test Result H/L Range Note CBC With Differential 04/07/2021 [facility] Main Lab [address] [place], [place] [id number] [phone] White Blood Count 5.9 10 Normal 4.0-10.0 [...] 36.0-66.0 Lymph % 18.2 % Low 24.0-44.0 [place] % 7.8 % Normal 2.0-8.0 Eos % 1.7 % Normal 0.0-3.0 Baso % 0.7 % Normal 0.0-1.0 Immature Granulocyte % 0.7 % Normal 0-3.0 Nucleated Red Blood Cell % 0.0 % Normal 0-0 Neutrophils # 4.2 10 Normal 1.5-8.5 Lymph # 1.1 10 Low 1.5-5.0 [place] # 0.5 10 Normal 0.0-0.8 Eos # 0.1 10 Normal 0.0-0.5 Baso # 0.0 10 Normal 0.0-0.2 Comprehensive Metabolic Profil 04/07/2021 [facility] Main Lab [address] [place] [address] [phone] Glucose, Fasting 111 mg/dL High 70-100 Blood [...] Normal 3.2-5.2 Albumin/Globulin Ratio 1.3 Normal 1.2-2.2 1 Units are mL/min/1.73 m2 Chronic Kidney Disease Staging per NKF: Stage I & II GFR >=60 Normal to Mildly Decreased Stage III GFR 30-59 Moderately Decreased Stage IV GFR 15-29 Severely Decreased Stage V GFR <15 Very Little GFR Left ESRD GFR <15 on OXYHYDROGEN WELDER Procedures Date Code Description Status 04/10/2021 60338 Office/Outpatient Established Mo d MDM 30-39 Min Completed 03/07/2021 46649 Office/Outpatient Established Mo d MDM 30-39 Min Completed Medical Devices Description No Information Available Encounters Type Date Location Provider Dx Diagnosis Office Visit 04/10/2021 11:30a [facility] Pra miguelina Martinez MD K50.018 Crohn's disease of small int estine with other complication K56.699 Other intestnl obst unsp as to partial versus complete obst D51.9 Vitamin B12 deficiency anemi a, unspecified Z86.010 Personal history of colonic polyps Office Visit 03/07/2021 3:30p [facility] Pra miguelina Martinez MD K50.018 Crohn's disease of small int estine with other complication K56.699 Other intestnl obst unsp as to partial versus complete obst K56.600 Partial intestinal obstructi on, unspecified as to cause D51.9 Vitamin B12 deficiency anemi a, unspecified Assessments Date Code Description Provider 04/10/2021 K50.018 Crohn's disease of small intesti ne with other complication Mauro Martinez MD 04/10/2021 K56.699 Other intestinal obs truction unspecified as to partial versus complete obstruction Mauro Martinez MD 04/10/2021 D51.9 Vitamin B12 deficiency anemia, u nspecified Mauro Martinez MD 04/10/2021 Z86.010 Personal history of colonic poly ps Mauro Martinez MD 03/07/2021 K50.018 Crohn's disease of small intesti ne with other complication Mauro Martinez MD 03/07/2021 K56.699 Other intestinal obs truction unspecified as to partial versus complete obstruction Mauro Martinez MD 03/07/2021 K56.600 Partial intestinal obstruction, unspecified as to cause Mauro Martinez MD 03/07/2021 D51.9 Vitamin B12 deficiency anemia, u nspecified Mauro Martinez MD Plan of Treatment Future Appointment(s):* 06/13/2021 2:45 pm - Mauro Martinez MD at [facility] 04/10/2021 - Mauro Martinez MD* K50.018 Crohn's disease of small [...]
--- OUTSIDE RECORDS SUMMARY | 2021-06-20 10:22 | CCD | Continuity of Care Document ---
Author Author Briseyda FRIEDMAN [facility] Organization Unknown Address [address] [place] [address] Phone [phone] Care Team Providers Care Citizenship Instructor Name Role Phone [facility] [phone] Problems Active Problems Provider Date Essential hypertension [...] CPT Code Status Date Vaccine Lot # [id number] Given 05/08/2021 Influenza Virus Vaccine, Dandre drivalent,multidose vial [id number] Given 05/08/2021 Pneumococcal Vaccine U-Flu Given 08/20/2020 Influenza,Unspecified 42699 Given 08/09/2019 Prevnar 13 [id number] Given 06/21/2019 Influenza Virus Vaccine, Dandre drivalent,multidose vial 06492 Given 07/29/2018 Influenza Virus, quadravalent, age 6 Mo and up,Preservative free [id number] 94239 Given 05/07/2016 Influenza Vaccination [id number] 61859 Given 06/22/2015 Influenza Vaccination/preser vative free [id number] 54818 Given 02/24/2014 Zostavax U-HepB Given 11/17/2012 Hepatitis B,Unspecified U-HepB Given 07/07/2012 Hepatitis B,Unspecified 32982 Given 05/12/2012 Influenza Vaccination U-HepB Given 03/27/2012 Hepatitis B,Unspecified 49679 Given 05/02/2011 Influenza Vaccination 10220 Given 05/29/2010 Influenza Vaccination 31426 Given 04/13/2010 Pneumococcal Vaccine 66548 Given 04/13/2010 Boostrix (Tdap) Tetnus, Diphtheria Toxoids & Acellular Pertussis Vital Signs Date Vital Result Comment 05/15/2021 1:30pm BP Systolic 137 mmHg BP Diastolic 67 mmHg Heart Rate 94 /min Body Temperature 98.7 F Respiratory Rate 20 /min Height 57.25 inches 4'9.25" Weight 182.25 lb O2 % BldC Oximetry 98 % [place] Body Weight 100 lb BMI (Body Mass Index) 39.1 kg/m2 03/07/2021 9:19am BP Systolic 146 mmHg BP Diastolic 72 mmHg BP Systolic Recheck 129 mmHg BP Diastolic Recheck 68 mmHg Heart Rate 89 /min Body Temperature 96.8 F Respiratory Rate 17 /min Height 57.25 inches 4'9.25" Weight 186.12 lb O2 % BldC Oximetry 98 % [place] Body Weight 100 lb BMI (Body Mass Index) 39.9 kg/m2 Results Test Acquired Date Facility Test Result H/L Range Note Istat Chem8+ Panel 05/07/[facility] [place] [address] [phone] iSTAT HCT 22.0 % Low 38.0-51.0 iSTAT Glucose 120 mg/dL High 70-105 iSTAT Sodium 138 mEq/L Normal 136-145 iSTAT Potassium 3.9 mEq/L Normal 3.5-5.1 iSTAT CA++ 4.7 mg/dL Normal 4.5-5.3 iSTAT Chloride 100 mEq/L Normal 98-109 iSTAT Co2 26.0 MM/L Normal 23.0-27.0 iSTAT BUN 11 mg/dL Normal 8-26 iSTAT Creatinine 0.9 mg/dL Normal 0.6-1.3 CBC With Differential 05/07/2021 [facility] [place] [address] [phone] White Blood Count 6.6 10 Normal 4.0-10.0 [...] 36.0-66.0 Lymph % 14.1 % Low 24.0-44.0 [place] % 5.5 % Normal 2.0-8.0 Eos % 1.1 % Normal 0.0-3.0 Baso % 0.2 % Normal 0.0-1.0 Immature Granulocyte % 0.6 % Normal 0-3.0 Nucleated Red Blood Cell % 0.0 % Normal 0-0 Neutrophils # 5.2 10 Normal 1.5-8.5 Lymph # 0.9 10 Low 1.5-5.0 [place] # 0.4 10 Normal 0.0-0.8 Eos # 0.1 10 Normal 0.0-0.5 Baso # 0.0 10 Normal 0.0-0.2 Prothrombin Time/Inr 05/07/2021 [place] [address] [phone] Prothrombin Time 12.9 seconds Normal 12.7-14.5 Inr 0.93 Normal 1 Laboratory test finding 05/07/2021 [place] [address] [phone] Partial Thromboplastin Time 20.9 seconds Low 25 .9-37.0 Liver Profile 05/07/2021 [place] [address] [phone] Ast/Sgot 13 U/L Normal 7-37 Alt/SGPT 15 U/L Normal 12-78 Alkaline Phosphatase 66 U/L Normal 45-117 Bilirubin,Total 0.7 mg/dL Normal 0.2-1.0 Bilirubin,Direct 0.2 mg/dL Normal 0.0-0.2 Total Protein 6.0 GM/DL Low 6.4-8.2 Albumin 3.3 GM/DL Normal 3.2-5.2 Albumin/Globulin Ratio 1.2 Normal 1.2-2.2 Laboratory test finding 05/07/2021 [place] [address] [phone] Lipase 115 U/L Normal 73-393 Lactic Acid Sepsis Protocol 2.7 mmol/L Critical high 0.4-2.0 2 Ua W/ Reflex To Culture 05/07/2021 [place] [address] [phone] Appearance, Urine RFX CLEAR Normal Clear Color, Urine RFX YELLOW Normal Yellow PH,Urine RFX 8.0 units Normal 5.0-9.0 Specific [place] Ur Auto RFX 1.048 Normal 1.002-1.035 Protein, [...] With Differential 04/07/2021 [place] [address] [phone] White Blood Count 5.9 10 Normal 4.0-10.0 [...] 36.0-66.0 Lymph % 18.2 % Low 24.0-44.0 [place] % 7.8 % Normal 2.0-8.0 Eos % 1.7 % Normal 0.0-3.0 Baso % 0.7 % Normal 0.0-1.0 Immature Granulocyte % 0.7 % Normal 0-3.0 Nucleated Red Blood Cell % 0.0 % Normal 0-0 Neutrophils # 4.2 10 Normal 1.5-8.5 Lymph # 1.1 10 Low 1.5-5.0 [place] # 0.5 10 Normal 0.0-0.8 Eos # 0.1 10 Normal 0.0-0.5 Baso # 0.0 10 Normal 0.0-0.2 Comprehensive Metabolic Profil 04/07/[address]21 [address] [place], [place] [id number] [phone] Glucose, Fasting 111 mg/dL High 70-100 Blood [...] Ratio 1.3 Normal 1.2-2.2 Lipid Panel 03/04/2021 [facility] nter [phone] Triglycerides Level 366 mg/dL High <150 Cholesterol Level 165 mg/dL Normal <200 HDL Cholesterol 40 mg/dL Normal >40 LDL Cholesterol 52 mg/dL Normal <100 Non-HDL-C 125 mg/dL Normal Cholesterol Risk Ratio 4.125 Normal <5 Comprehensive Metabolic Profil 03/04/2021 [facility] [phone] Glucose, Fasting 161 mg/dL High 70-100 Blood [...] Ratio 1.2 Normal 1.2-2.2 Microalbumin Random 03/04/2021 [facility] [phone] Creatinine, Urine 77.3 mg/dL Normal Malb Urine Siemens 13.2 mg/L Normal [place]/Creat Ratio 17.0 MCG/MG Normal 0.0-30.0 5 Hemoglobin A1c 03/04/2021 [facility] [phone] Hemoglobin A1c 7.7 % Normal 6 Estimated Average Glucose 174 mg/dL High 60-110 Laboratory test finding 01/25/2021 [place] [address] [phone] Lactic Acid Sepsis Protocol 3.3 mmol/L Critical high 0 .4-2.0 7 Istat Chem8+ Panel 01/25/2021 [place] [address] [phone] iSTAT HCT 36.0 % Low 38.0-51.0 iSTAT Glucose 143 mg/dL High 70-105 iSTAT Sodium 138 mEq/L Normal 136-145 iSTAT Potassium 4.2 mEq/L Normal 3.5-5.1 iSTAT CA++ 4.7 mg/dL Normal 4.5-5.3 iSTAT Chloride 96 mEq/L Low 98-109 iSTAT Co2 29.0 MM/L High 23.0-27.0 iSTAT BUN 10 mg/dL Normal 8-26 iSTAT Creatinine 0.7 mg/dL Normal 0.6-1.3 CBC With Differential 01/25/2021 [place] [address] [phone] White Blood Count 9.2 10 Normal 4.0-10.0 [...] 36.0-66.0 Lymph % 11.8 % Low 24.0-44.0 [place] % 6.1 % Normal 2.0-8.0 Eos % 0.9 % Normal 0.0-3.0 Baso % 0.5 % Normal 0.0-1.0 Immature Granulocyte % 0.7 % Normal 0-3.0 Nucleated Red Blood Cell % 0.0 % Normal 0-0 Neutrophils # 7.4 10 Normal 1.5-8.5 Lymph # 1.1 10 Low 1.5-5.0 [place] # 0.6 10 Normal 0.0-0.8 Eos # 0.1 10 Normal 0.0-0.5 Baso # 0.1 10 Normal 0.0-0.2 Prothrombin Time/Inr 01/25/[address] [place] [address] [phone] Prothrombin Time 12.2 seconds Normal 12.5-14.3 Inr 0.89 Normal 8 Liver Profile 01/25/2021 [facility] [place] [address] [phone] Ast/Sgot 20 U/L Normal 7-37 Alt/SGPT 22 U/L Normal 12-78 Alkaline Phosphatase 87 U/L Normal 45-117 Bilirubin,Total 0.6 mg/dL Normal 0.2-1.0 Bilirubin,Direct 0.2 mg/dL Normal 0.0-0.2 Total Protein 6.7 GM/DL Normal 6.4-8.2 Albumin 3.7 GM/DL Normal 3.2-5.2 Albumin/Globulin Ratio 1.2 Normal 1.2-2.2 Laboratory test finding 01/25/2021 [place] [address] [phone] Lipase 114 U/L Normal 73-393 9 Cardiac Marker Panel 01/25/2021 [place] [address] [phone] CPK Creatine Phosphokinase 26 U/L Normal 26-19 [...] Little GFR Left ESRD GFR <15 on TRACK SURFACING MACHINE OPERATOR 4 Units are mL/min/1.73 m2 Chronic Kidney Disease Staging per NKF: Stage I & II GFR >=60 Normal to Mildly Decreased Stage III GFR 30-59 Moderately Decreased Stage IV GFR 15-29 Severely Decreased Stage V GFR <15 Very Little GFR Left ESRD GFR <15 on TRACK SURFACING MACHINE OPERATOR 5 THE [employer] [place] ATION STATES THAT MICROALBUMINURIA IS [...] Troponin I Reference Interva l for Siemens [place] LOCI: 99th Percentile= 0.00-0.045 ng/ml Risk Stratification: <= 0.10 ng/ml Decreased Risk for Adverse Clinical Events. 0.10-1.50 ng/ml Increased Risk for Adv erse Clinical Events. Evaluation of additional criterion and/or repeat testing in 2-6 hours is suggested to rule out myocardial damage. >= 1.50 ng/ml Indicative of Myocardial Injury. Procedures Date Code Description Status 03/07/2021 45003 Office/Outpatient Established Mo d MDM 30-39 Min Completed 03/07/2021 808440880 Diabetic Foot Exam Completed 05/24/2020 [id number] Colonoscopy Completed 04/21/2020 [id number] Mammogram Completed 05/20/2018 [id number] Bone Mineral Density Test [facility] Description No Information Available Encounters Type Date [...] intesti ne with intestinal obstructi Paula Friedman, EMERGENCY DEPARTMENT RN 05/15/2021 D50.9 Iron deficiency anemia, unspecif ied Paula Friedman, EMERGENCY DEPARTMENT RN 05/15/2021 E11.69 Type 2 diabetes mellitus with ot her specified complication Paula Friedman, EMERGENCY DEPARTMENT RN 05/15/2021 I10 Essential (primary) hypertension Paula Friedman, EMERGENCY DEPARTMENT RN 05/15/2021 E78.5 Hyperlipidemia, unspecified Ples Paula hoover, EMERGENCY DEPARTMENT RN 03/07/2021 E11.69 Type 2 diabetes mellitus with [...]
--- OUTSIDE RECORDS SUMMARY | 2021-06-20 10:22 | CCD | Continuity of Care Document ---
Author Author Briseyda MARTINEZ MD Organization Unknown Address [address] [place] [address] Phone [phone] Care Team Providers Care Medical Lab Specialist Name Role Phone Halley Garcia M.D. [facility] [phone] Problems Description No Active Problems Social History [...] lb BMI (Body Mass Index) 38.7 kg/m2 [place] Body Weight 100 lb Weight 81.194 kg BSA (Body Surface Area) 1.72 m2 03/07/2021 3:46pm BP Systolic 144 mmHg BP Diastolic 82 mmHg Height 57 inches 4'9" Weight 185.00 lb BMI (Body Mass Index) 40.0 kg/m2 [place] Body Weight 100 lb Weight 83.916 kg BSA (Body Surface Area) 1.74 m2 Results Test Acquired Date Facility Test Result H/L Range Note CBC With Differential 04/07/2021 [facility] Main Lab [address] [place], [place] [address] [phone] White Blood Count 5.9 10 Normal 4.0-10.0 [...] 36.0-66.0 Lymph % 18.2 % Low 24.0-44.0 [place] % 7.8 % Normal 2.0-8.0 Eos % 1.7 % Normal 0.0-3.0 Baso % 0.7 % Normal 0.0-1.0 Immature Granulocyte % 0.7 % Normal 0-3.0 Nucleated Red Blood Cell % 0.0 % Normal 0-0 Neutrophils # 4.2 10 Normal 1.5-8.5 Lymph # 1.1 10 Low 1.5-5.0 [place] # 0.5 10 Normal 0.0-0.8 Eos # 0.1 10 Normal 0.0-0.5 Baso # 0.0 10 Normal 0.0-0.2 Comprehensive Metabolic Profil 04/07/2021 [facility] Main Lab [address] [place] [address] [phone] Glucose, Fasting 111 mg/dL High 70-100 Blood [...] Little GFR Left ESRD GFR <15 on CHOCOLATIER Procedures Date Code Description Status 04/10/2021 71111 Office/Outpatient Established Mo d MDM 30-39 Min Completed 03/07/2021 21884 Office/Outpatient Established Mo d MDM 30-39 Min Completed Medical Devices Description No Information Available Encounters Type Date Location Provider Dx Diagnosis Office Visit 04/10/2021 11:30a [facility] Pra miguelina Martinez MD K50.018 Crohn's disease of small int estine with other complication K56.699 Other intestnl obst unsp as to partial versus complete obst D51.9 Vitamin B12 deficiency anemi a, unspecified Z86.010 Personal history of colonic polyps Office Visit 03/07/2021 3:30p [facility] Pra miguelina Martinez MD K50.018 Crohn's [...] 2:45 pm - Mauro Martinez MD at [facility] 04/10/2021 - Mauro Martinez MD* [...]
--- OUTSIDE RECORDS SUMMARY | 2021-06-20 10:22 | CCD | Continuity of Care Document ---
Author Organization Unknown Address Unknown Phone Unavailable Care Team Providers Care Telemarketing Supervisor Name Role Phone Eitan [facility] - Gastroenterology AUTM [facility] AUTM [phone] Problems Active Problems Provider Date Essential hypertension [...] SIG Qnty Indications Ordering Provide r Date Farxiga 5mg Tablets take one tablet by [...] M.D. 0 01/26/[address] [place] 1 capsules [...] Vaccine Lot # U-[id number] Given 08/20/2020 Influenza,Unspecified [id number] Given 08/09/2019 Prevnar 13 [id number] Given 06/21/2019 Influenza Virus Vaccine, Quadrivalent,age 3 and up,multidose vial 37834 Given 07/29/2018 Influenza Virus, quadravalent, preservative free,age 3 and up [id number] 03424 Given 05/07/2016 Influenza Vaccination [id number] 17567 Given 06/22/2015 Influenza Vaccination/preser vative free [id number] 70758 Given 02/24/2014 Zostavax U-HepB Given 11/17/2012 Hepatitis B,Unspecified U-HepB Given 07/07/2012 Hepatitis B,Unspecified 49532 Given 05/12/2012 Influenza Vaccination U-HepB Given 03/27/2012 Hepatitis B,Unspecified 98961 Given 05/02/2011 Influenza Vaccination 89408 Given 05/29/2010 Influenza Vaccination 10910 Given 04/13/2010 Pneumococcal Vaccine 50557 Given 04/13/2010 Boostrix (Tdap) Tetnus, Diphtheria Toxoids & Acellular Pertussis Vital Signs Date Vital Result Comment 03/07/2021 9:19am BP Systolic 146 mmHg BP Diastolic 72 mmHg BP Systolic Recheck 129 mmHg BP Diastolic Recheck 68 mmHg Heart Rate 89 /min Body Temperature 96.8 F Respiratory Rate 17 /min Height 57.25 inches 4'9.25" Weight 186.12 lb O2 % BldC Oximetry 98 % [place] Body Weight 100 lb BMI (Body Mass Index) 39.9 kg/m2 08/30/2020 2:47pm BP Systolic 200 mmHg BP Diastolic 98 mmHg BP Systolic Recheck 174 mmHg BP Diastolic Recheck 82 mmHg Heart Rate 82 /min Body Temperature 97.1 F Respiratory Rate 16 /min Height 57.25 inches 4'9.25" Weight 181.25 lb O2 % BldC Oximetry 98 % [place] Body Weight 100 lb BMI (Body Mass Index) 38.9 kg/m2 Results Test Acquired Date Facility Test Result H/L Range Note CBC With Differential 04/07/2021 Patient Service [place], [place] [id number] [phone] White Blood Count 5.9 10 Normal 4.0-10.0 [...] 36.0-66.0 Lymph % 18.2 % Low 24.0-44.0 [place] % 7.8 % Normal 2.0-8.0 Eos % 1.7 % Normal 0.0-3.0 Baso % 0.7 % Normal 0.0-1.0 Immature Granulocyte % 0.7 % Normal 0-3.0 Nucleated Red Blood Cell % 0.0 % Normal 0-0 Neutrophils # 4.2 10 Normal 1.5-8.5 Lymph # 1.1 10 Low 1.5-5.0 [place] # 0.5 10 Normal 0.0-0.8 Eos # 0.1 10 Normal 0.0-0.5 Baso # 0.0 10 Normal 0.0-0.2 Comprehensive Metabolic Profil 04/07/[address] [place] [address] [phone] Glucose, Fasting 111 mg/dL High 70-100 Blood [...] Ratio 1.3 Normal 1.2-2.2 Hemoglobin A1c 03/04/2021 [facility] [phone] Hemoglobin A1c 7.7 % Normal 2 Estimated Average Glucose 174 mg/dL High 60-110 Lipid [facility] [phone] Triglycerides Level 366 mg/dL High <150 Cholesterol Level 165 mg/dL Normal <200 HDL Cholesterol 40 mg/dL Normal >40 LDL Cholesterol 52 mg/dL Normal <100 Non-HDL-C 125 mg/dL Normal Cholesterol Risk Ratio 4.125 Normal <5 Microalbumin Random 03/04/2021 [facility] nter [phone] Creatinine, Urine 77.3 mg/dL Normal Malb Urine Siemens 13.2 mg/L Normal Higinio/Creat Ratio 17.0 MCG/MG Normal 0.0-30.0 3 Comprehensive Metabolic Profil 03/04/2021 [facility] [phone] Glucose, Fasting 161 mg/dL High 70-100 Blood [...] 1.2-2.2 Laboratory test finding 01/25/2021 [place] [address] [phone] Lactic Acid Sepsis Protocol 3.3 mmol/L Critical high 0 .4-2.0 5 Istat Chem8+ Panel 01/25/2021 [place] [address] [phone] iSTAT HCT 36.0 % Low 38.0-51.0 iSTAT Glucose 143 mg/dL High 70-105 iSTAT Sodium 138 mEq/L Normal 136-145 iSTAT Potassium 4.2 mEq/L Normal 3.5-5.1 iSTAT CA++ 4.7 mg/dL Normal 4.5-5.3 iSTAT Chloride 96 mEq/L Low 98-109 iSTAT Co2 29.0 MM/L High 23.0-27.0 iSTAT BUN 10 mg/dL Normal 8-26 iSTAT Creatinine 0.7 mg/dL Normal 0.6-1.3 CBC With Differential 01/25/2021 [place] [address] [phone] White Blood Count 9.2 10 Normal 4.0-10.0 [...] 36.0-66.0 Lymph % 11.8 % Low 24.0-44.0 [place] % 6.1 % Normal 2.0-8.0 Eos % 0.9 % Normal 0.0-3.0 Baso % 0.5 % Normal 0.0-1.0 Immature Granulocyte % 0.7 % Normal 0-3.0 Nucleated Red Blood Cell % 0.0 % Normal 0-0 Neutrophils # 7.4 10 Normal 1.5-8.5 Lymph # 1.1 10 Low 1.5-5.0 [place] # 0.6 10 Normal 0.0-0.8 Eos # 0.1 10 Normal 0.0-0.5 Baso # 0.1 10 Normal 0.0-0.2 Prothrombin Time/Inr 01/25/2021 [place] [address] [phone] Prothrombin Time 12.2 seconds Normal 12.5-14.3 Inr 0.89 Normal 6 Liver Profile 01/25/2021 [place] [address] [phone] Ast/Sgot 20 U/L Normal 7-37 Alt/SGPT 22 U/L Normal 12-78 Alkaline Phosphatase 87 U/L Normal 45-117 Bilirubin,Total 0.6 mg/dL Normal 0.2-1.0 Bilirubin,Direct 0.2 mg/dL Normal 0.0-0.2 Total Protein 6.7 GM/DL Normal 6.4-8.2 Albumin 3.7 GM/DL Normal 3.2-5.2 Albumin/Globulin Ratio 1.2 Normal 1.2-2.2 Laboratory test finding 01/25/2021 [place] [address] [phone] Lipase 114 U/L Normal 73-393 7 Cardiac Marker Panel 01/25/[address] [facility] [place], [place] [id number] [phone] CPK Creatine Phosphokinase 26 U/L Normal 26-19 2 CK-MB Value Mass < 1.0 NG/ML Normal <3.6 MB/CK Relative Index 3.85 Normal < Or =4 8 Troponin I < 0.02 NG/ML Normal < 0.10 9 Creatinine With GFR 10/19/2020 Patient Service [facility] [place], [place] [id number] [phone] Creatinine For GFR 0.83 mg/dL Normal 0.55-1.30 Glomerular Filtration Rate > 60.0 Normal >45 1 0 1 Units are mL/min/1.73 m2 Chronic Kidney Disease Staging per NKF: Stage I & II GFR >=60 Normal to Mildly Decreased Stage III GFR 30-59 Moderately Decreased Stage IV GFR 15-29 Severely Decreased Stage V GFR <15 Very Little GFR Left ESRD GFR <15 on ORACLE SPECIALIST 2 REFERENCE RANGES: <=5.6% NORMAL 5.7-6.4% SUGGESTS IMPAIRED GLUCOSE META BOLISM/PREDIABETIC >= 6.5% ABNORMAL 3 THE [place] ATION STATES THAT MICROALBUMINURIA IS PRESENT IF THE MICROALBUMIN/CREATININE RATIO EXCEEDS 30 MCG/MG. THE THRESHOLD FOR CLINICAL ALBUMINURIA IS REACHED AT 300 MCG/MG. THE CLASSIFICATION OF A PATIENT SHOULD BE BASED UPON AT LEAST 2 OF 3 ABNORMAL RESULTS ON SPECIMENS COLLECTED WITHIN A 3 TO 6 MONTH TIME FRAME. 4 Units are mL/min/1.73 m2 Chronic Kidney Disease Staging per NKF: Stage I & II GFR >=60 Normal to Mildly Decreased Stage III GFR 30-59 Moderately Decreased Stage IV GFR 15-29 Severely Decreased Stage V GFR <15 Very Little GFR Left ESRD GFR <15 on ORACLE SPECIALIST 5 Y/N query for Sepsis Lactate Rule: Y 6 THERAPUTIC HUMAN INR VALUES INDICATIONS NORMAL RANGES PROPHYLAXIS/TREATMENT OF: VENOUS THROMBOSIS 2.0-3.0 PULMONARY EMBOLISM 2.0-3.0 PREVENTION OF SYSTEMIC EMBOLISM FROM: TISSUE HEART VALVES 2.0-3.0 ACUTE MYOCARDIAL INFARCTION 2.0-3.0 VALVULAR HEART DISEASE 2.0-3.0 ATRIAL FIBRILLATION 2.0-3.0 MECHANICAL VALVES(HIGH RISK) 2.5-3.5 RECURRENT MYOCARDIAL INFARCTION 2.5-3.5 7 MOBILAB COMMENT--- 8 DIAGNOSIS CRITERIA MMB ng/ml Relative Index (RI) NON-AMI < or = 5 N/A ANGLIN ZONE > 5 < or = 4 AMI > 5 > 4 9 Troponin I Reference Interva l for Siemens [place] LOCI: 99th Percentile= 0.00-0.045 ng/ml Risk Stratification: <= 0.10 ng/ml Decreased Risk for Adverse Clinical Events. 0.10-1.50 ng/ml Increased Risk for Adv erse Clinical Events. Evaluation of additional criterion and/or repeat testing in 2-6 hours is suggested to rule out myocardial damage. >= 1.50 ng/ml Indicative of Myocardial Injury. 10 Units are mL/min/1.73 m2 Chronic Kidney Disease Staging per NKF: Stage I & II GFR >=60 Normal to Mildly Decreased Stage III GFR 30-59 Moderately Decreased Stage IV GFR 15-29 Severely Decreased Stage V GFR <15 Very Little GFR Left ESRD GFR <15 on ORACLE SPECIALIST Procedures Date Code Description Status 03/07/2021 14624 Office/Outpatient Established Mo d MDM 30-39 Min Completed 03/07/2021 [id number] Diabetic Foot Exam Completed 05/24/2020 [id number] Colonoscopy Completed 04/21/2020 [id number] Mammogram Completed 05/20/2018 [id number] Bone Mineral Density Test Comple [place] Description No Information Available Encounters Type Date [...] FNP at Main Office 03/07/2021 - Halley Garcia M.D.* E11.69 Type 2 diabetes mellitus with [...] deficiency anemia, unspecified* Follow up:* . * Z13.89 Encounter for screening for other disorder * All * New Medication:* Farxiga 5 mg - take one tablet by mouth every day in the morning Functional Status Functional Condition Comment Date Status Trifocal glasses Active Independent with all ADL's Activ e Mental Status Mental Condition Comment Date Status None Active Referrals Description No Information Available
--- OUTSIDE RECORDS SUMMARY | 2021-06-20 10:22 | CCD | Continuity of Care Document ---
Author Author Briseyda KO M.D. Organization Unknown Address [address] [place] [id number] Phone [phone] Care Team Providers Care Word Processing Supervisor Name Role Phone Yazidi Gastro - Gastroenterology AUTM [facility] AUTM [phone] Problems Active Problems Provider Date Essential hypertension [...] Vaccine Lot # U-Flu Given 08/20/2020 Influenza,Unspecified 51060 Given 08/09/2019 Prevnar 13 [id number] 18122 Given 06/21/2019 Influenza Virus Vaccine, Dandre drivalent,multidose vial 72093 Given 07/29/2018 Influenza Virus, quadravalent, age 6 Mo and up,Preservative free [id number] 43442 Given 05/07/2016 Influenza Vaccination [id number] 17166 Given 06/22/2015 Influenza Vaccination/preser vative free [id number] 08963 Given 02/24/2014 Zostavax U-HepB Given 11/17/2012 Hepatitis B,Unspecified U-HepB Given 07/07/2012 Hepatitis B,Unspecified 39927 Given 05/12/2012 Influenza Vaccination U-HepB Given 03/27/2012 Hepatitis B,Unspecified 21138 Given 05/02/2011 Influenza Vaccination 80312 Given 05/29/2010 Influenza Vaccination 74921 Given 04/13/2010 Pneumococcal Vaccine 93626 Given 04/13/2010 Boostrix (Tdap) Tetnus, Diphtheria Toxoids & Acellular Pertussis Vital Signs Date Vital Result Comment 03/07/2021 9:19am BP Systolic 146 mmHg BP Diastolic 72 mmHg BP Systolic Recheck 129 mmHg BP Diastolic Recheck 68 mmHg Heart Rate 89 /min Body Temperature 96.8 F Respiratory Rate 17 /min Height 57.25 inches 4'9.25" Weight 186.12 lb O2 % BldC Oximetry 98 % [place] Body Weight 100 lb BMI (Body Mass Index) 39.9 kg/m2 08/30/2020 2:47pm BP Systolic 200 mmHg BP Diastolic 98 mmHg BP Systolic Recheck 174 mmHg BP Diastolic Recheck 82 mmHg Heart Rate 82 /min Body Temperature 97.1 F Respiratory Rate 16 /min Height 57.25 inches 4'9.25" Weight 181.25 lb O2 % BldC Oximetry 98 % [place] Body Weight 100 lb BMI (Body Mass Index) 38.9 kg/m2 Results Test Acquired Date Facility Test Result H/L Range Note Istat Chem8+ Panel 05/07/2021 Patient Service Cent [facility] [place] [address] [phone] iSTAT HCT 22.0 % Low 38.0-51.0 iSTAT Glucose 120 mg/dL High 70-105 iSTAT Sodium 138 mEq/L Normal 136-145 iSTAT Potassium 3.9 mEq/L Normal 3.5-5.1 iSTAT CA++ 4.7 mg/dL Normal 4.5-5.3 iSTAT Chloride 100 mEq/L Normal 98-109 iSTAT Co2 26.0 MM/L Normal 23.0-27.0 iSTAT BUN 11 mg/dL Normal 8-26 iSTAT Creatinine 0.9 mg/dL Normal 0.6-1.3 CBC With Differential 05/07/2021 Patient Service Ce nter [facility] [place] [address] [phone] White Blood Count 6.6 10 Normal 4.0-10.0 [...] 36.0-66.0 Lymph % 14.1 % Low 24.0-44.0 [place] % 5.5 % Normal 2.0-8.0 Eos % 1.1 % Normal 0.0-3.0 Baso % 0.2 % Normal 0.0-1.0 Immature Granulocyte % 0.6 % Normal 0-3.0 Nucleated Red Blood Cell % 0.0 % Normal 0-0 Neutrophils # 5.2 10 Normal 1.5-8.5 Lymph # 0.9 10 Low 1.5-5.0 [place] # 0.4 10 Normal 0.0-0.8 Eos # 0.1 10 Normal 0.0-0.5 Baso # 0.0 10 Normal 0.0-0.2 Prothrombin Time/Inr 05/07/2021 [place] [address] [phone] Prothrombin Time 12.9 seconds Normal 12.7-14.5 Inr 0.93 Normal 1 Laboratory test finding 05/07/2021 [place] [address] [phone] Partial Thromboplastin Time 20.9 seconds Low 25 .9-37.0 Liver Profile 05/07/2021 Patient Service [facility] [address] [phone] Ast/Sgot 13 U/L Normal 7-37 Alt/SGPT 15 U/L Normal 12-78 Alkaline Phosphatase 66 U/L Normal 45-117 Bilirubin,Total 0.7 mg/dL Normal 0.2-1.0 Bilirubin,Direct 0.2 mg/dL Normal 0.0-0.2 Total Protein 6.0 GM/DL Low 6.4-8.2 Albumin 3.3 GM/DL Normal 3.2-5.2 Albumin/Globulin Ratio 1.2 Normal 1.2-2.2 Laboratory test finding 05/07/2021 Patient Service [facility] [place], [place] [address] [phone] Lipase 115 U/L Normal 73-393 Lactic Acid Sepsis Protocol 2.7 mmol/L Critical high 0.4-2.0 2 Ua W/ Reflex To Culture 05/07/2021 [place] [address] [phone] Appearance, Urine RFX CLEAR Normal Clear Color, Urine RFX YELLOW Normal Yellow PH,Urine RFX 8.0 units Normal 5.0-9.0 Specific [place] Ur Auto RFX 1.048 Normal 1.002-1.035 Protein, [...] CBC With Differential 04/07/2021 [place] [address] [phone] White Blood Count 5.9 10 Normal 4.0-10.0 [...] 36.0-66.0 Lymph % 18.2 % Low 24.0-44.0 [place] % 7.8 % Normal 2.0-8.0 Eos % 1.7 % Normal 0.0-3.0 Baso % 0.7 % Normal 0.0-1.0 Immature Granulocyte % 0.7 % Normal 0-3.0 Nucleated Red Blood Cell % 0.0 % Normal 0-0 Neutrophils # 4.2 10 Normal 1.5-8.5 Lymph # 1.1 10 Low 1.5-5.0 [place] # 0.5 10 Normal 0.0-0.8 Eos # 0.1 10 Normal 0.0-0.5 Baso # 0.0 10 Normal 0.0-0.2 Comprehensive Metabolic Profil 04/07/[address]21 [address] [place], [place] [address] [phone] Glucose, Fasting 111 mg/dL High 70-100 Blood [...] Ratio 1.3 Normal 1.2-2.2 Lipid Panel 03/04/2021 [facility] nter [phone] Triglycerides Level 366 mg/dL High <150 Cholesterol Level 165 mg/dL Normal <200 HDL Cholesterol 40 mg/dL Normal >40 LDL Cholesterol 52 mg/dL Normal <100 Non-HDL-C 125 mg/dL Normal Cholesterol Risk Ratio 4.125 Normal <5 Comprehensive Metabolic Profil 03/04/2021 [facility] [phone] Glucose, Fasting 161 mg/dL High 70-100 Blood [...] Ratio 1.2 Normal 1.2-2.2 Microalbumin Random 03/04/2021 [facility] nter [phone] Creatinine, Urine 77.3 mg/dL Normal Malb Urine Siemens 13.2 mg/L Normal Higinio/Creat Ratio 17.0 MCG/MG Normal 0.0-30.0 5 Hemoglobin A1c 03/04/2021 [facility] nter [phone] Hemoglobin A1c 7.7 % Normal 6 Estimated Average Glucose 174 mg/dL High 60-110 Laboratory test finding 01/25/2021 [place] [address] [phone] Lactic Acid Sepsis Protocol 3.3 mmol/L Critical high 0 .4-2.0 7 Istat Chem8+ Panel 01/25/2021 Patient Service [place], [place] [address] [phone] iSTAT HCT 36.0 % Low 38.0-51.0 iSTAT Glucose 143 mg/dL High 70-105 iSTAT Sodium 138 mEq/L Normal 136-145 iSTAT Potassium 4.2 mEq/L Normal 3.5-5.1 iSTAT CA++ 4.7 mg/dL Normal 4.5-5.3 iSTAT Chloride 96 mEq/L Low 98-109 iSTAT Co2 29.0 MM/L High 23.0-27.0 iSTAT BUN 10 mg/dL Normal 8-26 iSTAT Creatinine 0.7 mg/dL Normal 0.6-1.3 CBC With Differential 01/25/2021 [place] [address] [phone] White Blood Count 9.2 10 Normal 4.0-10.0 [...] 36.0-66.0 Lymph % 11.8 % Low 24.0-44.0 [place] % 6.1 % Normal 2.0-8.0 Eos % 0.9 % Normal 0.0-3.0 Baso % 0.5 % Normal 0.0-1.0 Immature Granulocyte % 0.7 % Normal 0-3.0 Nucleated Red Blood Cell % 0.0 % Normal 0-0 Neutrophils # 7.4 10 Normal 1.5-8.5 Lymph # 1.1 10 Low 1.5-5.0 [place] # 0.6 10 Normal 0.0-0.8 Eos # 0.1 10 Normal 0.0-0.5 Baso # 0.1 10 Normal 0.0-0.2 Prothrombin Time/Inr 01/25/[address] [place] [address] [phone] Prothrombin Time 12.2 seconds Normal 12.5-14.3 Inr 0.89 Normal 8 Liver Profile 01/25/2021 [place] [address] [phone] Ast/Sgot 20 U/L Normal 7-37 Alt/SGPT 22 U/L Normal 12-78 Alkaline Phosphatase 87 U/L Normal 45-117 Bilirubin,Total 0.6 mg/dL Normal 0.2-1.0 Bilirubin,Direct 0.2 mg/dL Normal 0.0-0.2 Total Protein 6.7 GM/DL Normal 6.4-8.2 Albumin 3.7 GM/DL Normal 3.2-5.2 Albumin/Globulin Ratio 1.2 Normal 1.2-2.2 Laboratory test finding 01/25/2021 [place] [address] [phone] Lipase 114 U/L Normal 73-393 9 Cardiac Marker Panel 01/25/2021 [place] [address] [phone] CPK Creatine Phosphokinase 26 U/L Normal 26-19 [...] Little GFR Left ESRD GFR <15 on THREAD DRAWER 4 Units are mL/min/1.73 m2 Chronic Kidney Disease Staging per NKF: Stage I & II GFR >=60 Normal to Mildly Decreased Stage III GFR 30-59 Moderately Decreased Stage IV GFR 15-29 Severely Decreased Stage V GFR <15 Very Little GFR Left ESRD GFR <15 on THREAD DRAWER 5 THE [place] [employer] ATION STATES THAT MICROALBUMINURIA IS [...] 11 Troponin I Reference Interva l for rVueta LOCI: 99th Percentile= 0.00-0.045 ng/ml Risk Stratification: <= 0.10 ng/ml Decreased Risk for Adverse Clinical Events. 0.10-1.50 ng/ml Increased Risk for Adv erse Clinical Events. Evaluation of additional criterion and/or repeat testing in 2-6 hours is suggested to rule out myocardial damage. >= 1.50 ng/ml Indicative of Myocardial Injury. Procedures Date Code Description Status 03/07/2021 67351 Office/Outpatient Established Mo d MDM 30-39 Min Completed 03/07/2021 [id number] Diabetic Foot Exam Completed 05/24/2020 [id number] Colonoscopy Completed 04/21/2020 [id number] Mammogram Completed 05/20/2018 [id number] Bone Mineral Density Test Comple [place] Description No Information Available Encounters Type Date [...]
--- OUTSIDE RECORDS SUMMARY | 2021-06-20 10:22 | CCD | Continuity of Care Document ---
Author Author Briseyda KO M.D. Organization Unknown Address [address] [place] [address] Phone [phone] Care Team Providers Care [place] Name Role Phone [facility] [phone] Problems Active Problems Provider Date Essential hypertension [...] Three Times A Day 270caps M12.9 Halley oK M .D. 05/07/2016 One Touch Test Strips [...] Vaccine Lot # U-[id number] Given 08/20/2020 Influenza,Unspecified 31516 Given 08/09/2019 Prevnar 13 [id number] Given 06/21/2019 Influenza Virus Vaccine, Dandre drivalent,multidose vial [id number] Given 07/29/2018 Influenza Virus, quadravalent, age 6 Mo and up,Preservative free [id number] 08963 Given 05/07/2016 Influenza Vaccination [id number] 50001 Given 06/22/2015 Influenza Vaccination/preser vative free [id number] Given 02/24/2014 Zostavax U-HepB Given 11/17/2012 Hepatitis B,Unspecified U-HepB Given 07/07/2012 Hepatitis B,Unspecified 41809 Given 05/12/2012 Influenza Vaccination U-HepB Given 03/27/2012 Hepatitis B,Unspecified 34054 Given 05/02/2011 Influenza Vaccination 68331 Given 05/29/2010 Influenza Vaccination 19375 Given 04/13/2010 Pneumococcal Vaccine 15423 Given 04/13/2010 Boostrix (Tdap) Tetnus, Diphtheria Toxoids & Acellular Pertussis Vital Signs Date Vital Result Comment 03/07/2021 9:19am BP Systolic 146 mmHg BP Diastolic 72 mmHg BP Systolic Recheck 129 mmHg BP Diastolic Recheck 68 mmHg Heart Rate 89 /min Body Temperature 96.8 F Respiratory Rate 17 /min Height 57.25 inches 4'9.25" Weight 186.12 lb O2 % BldC Oximetry 98 % [place] Body Weight 100 lb BMI (Body Mass Index) 39.9 kg/m2 08/30/2020 2:47pm BP Systolic 200 mmHg BP Diastolic 98 mmHg BP Systolic Recheck 174 mmHg BP Diastolic Recheck 82 mmHg Heart Rate 82 /min Body Temperature 97.1 F Respiratory Rate 16 /min Height 57.25 inches 4'9.25" Weight 181.25 lb O2 % BldC Oximetry 98 % [place] Body Weight 100 lb BMI (Body Mass Index) 38.9 kg/m2 Results Test Acquired Date Facility Test Result H/L Range Note Istat Chem8+ Panel 05/07/2021 [facility] [place] [address] [phone] iSTAT HCT 22.0 % Low 38.0-51.0 iSTAT [...] 05/07/[address] [facility] [place] [address] [phone] White Blood Count 6.6 10 Normal 4.0-10.0 [...] 36.0-66.0 Lymph % 14.1 % Low 24.0-44.0 [place] % 5.5 % Normal 2.0-8.0 Eos % 1.1 % Normal 0.0-3.0 Baso % 0.2 % Normal 0.0-1.0 Immature Granulocyte % 0.6 % Normal 0-3.0 Nucleated Red Blood Cell % 0.0 % Normal 0-0 Neutrophils # 5.2 10 Normal 1.5-8.5 Lymph # 0.9 10 Low 1.5-5.0 [place] # 0.4 10 Normal 0.0-0.8 Eos # 0.1 10 Normal 0.0-0.5 Baso # 0.0 10 Normal 0.0-0.2 Prothrombin Time/Inr 05/07/2021 [place] [address] [phone] Prothrombin Time 12.9 seconds Normal 12.7-14.5 Inr 0.93 Normal 1 Laboratory test finding 05/07/2021 [place] [address] [phone] Partial Thromboplastin Time 20.9 seconds Low 25 .9-37.0 Liver Profile 05/07/2021 Patient Service [facility] [address] [phone] Ast/Sgot 13 U/L Normal 7-37 Alt/SGPT 15 U/L Normal 12-78 Alkaline Phosphatase 66 U/L Normal 45-117 Bilirubin,Total 0.7 mg/dL Normal 0.2-1.0 Bilirubin,Direct 0.2 mg/dL Normal 0.0-0.2 Total Protein 6.0 GM/DL Low 6.4-8.2 Albumin 3.3 GM/DL Normal 3.2-5.2 Albumin/Globulin Ratio 1.2 Normal 1.2-2.2 Laboratory test finding 05/07/2021 [facility] [place], [place] [id number] [phone] Lipase 115 U/L Normal 73-393 Lactic Acid Sepsis Protocol 2.7 mmol/L Critical high 0.4-2.0 2 Ua W/ Reflex To Culture 05/07/2021 [place] [address] [phone] Appearance, Urine RFX CLEAR Normal Clear Color, Urine RFX YELLOW Normal Yellow PH,Urine RFX 8.0 units Normal 5.0-9.0 Specific [place] Ur Auto RFX 1.048 Normal 1.002-1.035 Protein, [...] CBC With Differential 04/07/2021 [place] [id number] [phone] White Blood Count 5.9 10 Normal 4.0-10.0 [...] 36.0-66.0 Lymph % 18.2 % Low 24.0-44.0 [place] % 7.8 % Normal 2.0-8.0 Eos % 1.7 % Normal 0.0-3.0 Baso % 0.7 % Normal 0.0-1.0 Immature Granulocyte % 0.7 % Normal 0-3.0 Nucleated Red Blood Cell % 0.0 % Normal 0-0 Neutrophils # 4.2 10 Normal 1.5-8.5 Lymph # 1.1 10 Low 1.5-5.0 [place] # 0.5 10 Normal 0.0-0.8 Eos # 0.1 10 Normal 0.0-0.5 Baso # 0.0 10 Normal 0.0-0.2 Comprehensive Metabolic Profil 04/07/[address] [place], [place] [id number] [phone] Glucose, Fasting 111 mg/dL High 70-100 Blood [...] Ratio 1.3 Normal 1.2-2.2 Lipid Panel 03/04/2021 [facility] nter [phone] Triglycerides Level 366 mg/dL High <150 Cholesterol Level 165 mg/dL Normal <200 HDL Cholesterol 40 mg/dL Normal >40 LDL Cholesterol 52 mg/dL Normal <100 Non-HDL-C 125 mg/dL Normal Cholesterol Risk Ratio 4.125 Normal <5 Comprehensive Metabolic Profil 03/04/2021 [facility] [phone] Glucose, Fasting 161 mg/dL High 70-100 Blood [...] Ratio 1.2 Normal 1.2-2.2 Microalbumin Random 03/04/2021 [facility] nter [phone] Creatinine, Urine 77.3 mg/dL Normal Malb Urine Siemens 13.2 mg/L Normal Higinio/Creat Ratio 17.0 MCG/MG Normal 0.0-30.0 5 Hemoglobin A1c 03/04/2021 [facility] nter [phone] Hemoglobin A1c 7.7 % Normal 6 Estimated Average Glucose 174 mg/dL High 60-110 Laboratory test finding 01/25/2021 [place] [address] [phone] Lactic Acid Sepsis Protocol 3.3 mmol/L Critical high 0 .4-2.0 7 Istat Chem8+ Panel 01/25/2021 Patient Service [place], [place] [id number] [phone] iSTAT HCT 36.0 % Low 38.0-51.0 iSTAT Glucose 143 mg/dL High 70-105 iSTAT Sodium 138 mEq/L Normal 136-145 iSTAT Potassium 4.2 mEq/L Normal 3.5-5.1 iSTAT CA++ 4.7 mg/dL Normal 4.5-5.3 iSTAT Chloride 96 mEq/L Low 98-109 iSTAT Co2 29.0 MM/L High 23.0-27.0 iSTAT BUN 10 mg/dL Normal 8-26 iSTAT Creatinine 0.7 mg/dL Normal 0.6-1.3 CBC With Differential 01/25/2021 [place] [address] [phone] White Blood Count 9.2 10 Normal 4.0-10.0 [...] 36.0-66.0 Lymph % 11.8 % Low 24.0-44.0 [place] % 6.1 % Normal 2.0-8.0 Eos % 0.9 % Normal 0.0-3.0 Baso % 0.5 % Normal 0.0-1.0 Immature Granulocyte % 0.7 % Normal 0-3.0 Nucleated Red Blood Cell % 0.0 % Normal 0-0 Neutrophils # 7.4 10 Normal 1.5-8.5 Lymph # 1.1 10 Low 1.5-5.0 [place] # 0.6 10 Normal 0.0-0.8 Eos # 0.1 10 Normal 0.0-0.5 Baso # 0.1 10 Normal 0.0-0.2 Prothrombin Time/Inr 01/25/[address] [place] [address] [phone] Prothrombin Time 12.2 seconds Normal 12.5-14.3 Inr 0.89 Normal 8 Liver Profile 01/25/2021 [place] [address] [phone] Ast/Sgot 20 U/L Normal 7-37 Alt/SGPT 22 U/L Normal 12-78 Alkaline Phosphatase 87 U/L Normal 45-117 Bilirubin,Total 0.6 mg/dL Normal 0.2-1.0 Bilirubin,Direct 0.2 mg/dL Normal 0.0-0.2 Total Protein 6.7 GM/DL Normal 6.4-8.2 Albumin 3.7 GM/DL Normal 3.2-5.2 Albumin/Globulin Ratio 1.2 Normal 1.2-2.2 Laboratory test finding 01/25/2021 [place] [address] [phone] Lipase 114 U/L Normal 73-393 9 Cardiac Marker Panel 01/25/2021 [place] [address] [phone] CPK Creatine Phosphokinase 26 U/L Normal 26-19 [...] Little GFR Left ESRD GFR <15 on CATHETERIZATION LABORATORY TECHNICIAN 4 Units are mL/min/1.73 m2 Chronic Kidney Disease Staging per NKF: Stage I & II GFR >=60 Normal to Mildly Decreased Stage III GFR 30-59 Moderately Decreased Stage IV GFR 15-29 Severely Decreased Stage V GFR <15 Very Little GFR Left ESRD GFR <15 on CATHETERIZATION LABORATORY TECHNICIAN 5 THE [employer] ATION STATES THAT MICROALBUMINURIA IS [...] 11 Troponin I Reference Interva l for [employer] LOCI: 99th Percentile= 0.00-0.045 ng/ml Risk Stratification: <= 0.10 ng/ml Decreased Risk for Adverse Clinical Events. 0.10-1.50 ng/ml Increased Risk for Adv erse Clinical Events. Evaluation of additional criterion and/or repeat testing in 2-6 hours is suggested to rule out myocardial damage. >= 1.50 ng/ml Indicative of Myocardial Injury. Procedures Date Code Description Status 03/07/2021 58538 Office/Outpatient Established Mo d MDM 30-39 Min Completed 03/07/2021 [id number] Diabetic Foot Exam Completed 05/24/2020 [id number] Colonoscopy Completed 04/21/2020 [id number] Mammogram Completed 05/20/2018 [id number] Bone Mineral Density Test Comple Acclaimd Description No Information Available Encounters Type Date [...]
--- OUTSIDE RECORDS SUMMARY | 2021-06-20 10:24 | CCD ---
Author Author [facility] Organization [facility] Address Unknown Phone Unavailable Care Team Providers Care Patch Driller Name Role Phone Kocan, J Fay HISTORICAL RECORDS ADMINISTRATOR Unavailable Unavailable Kocan, J Fay HISTORICAL RECORDS ADMINISTRATOR Unavailable Unavailable Kocan, J Fay HISTORICAL RECORDS ADMINISTRATOR Unavailable Unavailable Kocan, J Fay HISTORICAL RECORDS ADMINISTRATOR Unavailable Unavailable Kocan, J Fay HISTORICAL RECORDS ADMINISTRATOR Unavailable Unavailable Kocan, J Fay HISTORICAL RECORDS ADMINISTRATOR Unavailable Unavailable Kocan, J Fay HISTORICAL RECORDS ADMINISTRATOR Unavailable Unavailable Kocan, J Fay HISTORICAL RECORDS ADMINISTRATOR Unavailable Unavailable Kocan, J Fay HISTORICAL RECORDS ADMINISTRATOR Unavailable Unavailable Kocan, J Fay HISTORICAL RECORDS ADMINISTRATOR Unavailable Unavailable Kocan, J Fay HISTORICAL RECORDS ADMINISTRATOR Unavailable Unavailable Kocan, J Fay HISTORICAL RECORDS ADMINISTRATOR Unavailable Unavailable Kocan, J Fay HISTORICAL RECORDS ADMINISTRATOR Unavailable Unavailable HERNAN ALBERT MD Unavailable Unavailable HERNAN ALBERT MD Unavailable Unavailable HERNAN ALBRET MD Unavailable Unavailable HERNAN ALEBRT MD Unavailable Unavailable HERNAN ALBERT MD Unavailable Unavailable HERNAN ALBERT MD Unavailable Unavailable HERNAN ALBERT MD Unavailable Unavailable HERNAN ALBERT MD Unavailable Unavailable HERNAN ALBERT MD Unavailable Unavailable HERNAN ALBERT MD Unavailable Unavailable HERNAN ALBERT MD Unavailable Unavailable HERNAN ALBERT MD Unavailable Unavailable HERNAN ALBERT MD Unavailable Unavailable HERNAN ALBERT MD Unavailable Unavailable HERNAN ALBERT MD Unavailable Unavailable HERNAN ALBERT MD Unavailable Unavailable HERNAN ALBERT MD Unavailable Unavailable HERNAN ALBERT MD Unavailable Unavailable HERNAN ALBERT MD Unavailable Unavailable HERNAN ALBERT MD Unavailable Unavailable REINDL, HERNAN ROSAS Unavailable Unavailable REINDL, HERNAN ROSAS Unavailable Unavailable REINDL, HERNAN ROSAS Unavailable Unavailable REINDL, HERNAN ROSAS Unavailable Unavailable REINDL, HERNAN ROSAS Unavailable Unavailable REINDL, HERNAN ROSAS Unavailable Unavailable REINDL, HERNAN ROSAS Unavailable Unavailable REINDL, HERNAN ROSAS Unavailable Unavailable REINDL, HERNAN ROSAS Unavailable Unavailable REINDL, HERNAN ROSAS Unavailable Unavailable REINDL, HERNAN ROSAS Unavailable Unavailable REINDL, HERNAN ROSAS Unavailable Unavailable REINDL, HERNAN ROSAS Unavailable Unavailable REINDL, HERNAN ROSAS Unavailable Unavailable REINDL, HERNAN ROSAS Unavailable Unavailable REINDL, HERNAN ROSAS Unavailable Unavailable REINDL, HERNAN ROSAS Unavailable Unavailable REINDL, HERNAN ROSAS Unavailable Unavailable REINDL, HERNAN ROSAS Unavailable Unavailable REINDL, HERNAN ROSAS Unavailable Unavailable REINDL, HERNAN ROSAS Unavailable Unavailable REINDL, HERNAN ROSAS Unavailable Unavailable Petrancosta, Mccone Britany PA-C Unavailable Unavailabl e Petrancosta, Mccone Britany PA-C Unavailable Unavailabl e Petrancosta, Mccone Britany PA-C Unavailable Unavailabl e Petrancosta, Mccone Britany PA-C Unavailable Unavailabl e Petrancosta, Mccone Britany PA-C Unavailable Unavailabl e Petrancosta, Mccone Britany PA-C Unavailable Unavailabl e Petrancosta, Mccone Britany PA-C Unavailable Unavailabl e Petrancosta, Mccone Britany PA-C Unavailable Unavailabl e Petrancosta, Mccone Britany PA-C Unavailable Unavailabl e Petrancosta, Mccone Britany PA-C Unavailable Unavailabl e Petrancosta, Mccone Britany PA-C Unavailable Unavailabl e Petrancosta, Mccone Britany PA-C Unavailable Unavailabl e Petrancosta, Mccone Britany PA-C Unavailable Unavailabl e Petrancosta, Mccone Britany PA-C Unavailable Unavailabl e Petrancosta, Mccone Britany PA-C Unavailable Unavailabl e Petrancosta, Mccone Britany PA-C Unavailable Unavailabl e Petrancosta, Mccone Britany PA-C Unavailable Unavailabl e Petrancosta, Mccone Britany PA-C Unavailable Unavailabl e Petrancosta, Mccone Britany PA-C Unavailable Unavailabl e Petrancosta, Mccone Britany PA-C Unavailable Unavailabl e Petrancosta, Mccone Britany PA-C Unavailable Unavailabl e Petrancosta, Mccone Britany PA-C Unavailable Unavailabl e Petrancosta, Mccone Britany PA-C Unavailable Unavailabl e Petrancosta, Mccone Britany PA-C Unavailable Unavailabl e Petrancosta, Mccone Britany PA-C Unavailable Unavailabl e APRYL, ANNITA ROSAS Unavailable Unavailable APRYL, ANNITA ROSAS Unavailable Unavailable APRYL, ANNITA ROSAS Unavailable Unavailable APRYL, ANNITA ROSAS Unavailable Unavailable APRYL, ANNITA ROSAS Unavailable Unavailable APRYL, ANNITA ROSAS Unavailable Unavailable APRYL, ANNITA ROSAS Unavailable Unavailable APRYL, ANNITA ROSAS Unavailable Unavailable APRYL, ANNITA ROSAS Unavailable Unavailable APRYL, ANNITA ROSAS Unavailable Unavailable ARPYL, ANNITA ROSAS Unavailable Unavailable APRYL, ANNITA ROSAS Unavailable Unavailable APRYL, ANNITA ROSAS Unavailable Unavailable APRYL, ANNITA ROSAS Unavailable Unavailable APRYL, ANNITA ROSAS Unavailable Unavailable APRYL, ANNITA ROSAS Unavailable Unavailable APRYL, ANNITA ROSAS Unavailable Unavailable APRYL, ANNITA ROSAS Unavailable Unavailable APRYL, ANNITA ROSAS Unavailable Unavailable APRYL, ANNITA ROSAS Unavailable Unavailable APRYL, ANNITA ROSAS Unavailable Unavailable APRYL, ANNITA ROSAS Unavailable Unavailable APRYL, ANNITA ROSAS Unavailable Unavailable APRYL, ANNITA ROSAS Unavailable Unavailable APRYL, ANNITA ROSAS Unavailable Unavailable APRYL, ANNITA ROSAS Unavailable Unavailable APRYL, ANNITA ROSAS Unavailable Unavailable APRYL, ANNITA ROSAS Unavailable Unavailable APRYL, ANNITA ROSAS Unavailable Unavailable APRYL, ANNITA ROSAS Unavailable Unavailable APRYL, ANNITA ROSAS Unavailable Unavailable APRYL, ANNITA ROSAS Unavailable Unavailable APRYL, ANNITA ROSAS Unavailable Unavailable APRYL, ANNITA ROSAS Unavailable Unavailable APRYL, ANNITA ROSAS Unavailable Unavailable APYRL, ANNITA ROSAS Unavailable Unavailable APRYL, ANNITA ROSAS Unavailable Unavailable APRYL, ANNITA ROSAS Unavailable Unavailable APRYL, ANNITA ROSAS Unavailable Unavailable APRYL, ANNITA ROSAS Unavailable Unavailable APRYL, ANNITA ROSAS Unavailable Unavailable APRYL, ANNITA ROSAS Unavailable Unavailable APRYL, ANNITA ROSAS Unavailable Unavailable APRYL, ANNITA ROSAS Unavailable Unavailable APRYL, ANNITA ROSAS Unavailable Unavailable APRYL, ANNITA ROSAS Unavailable Unavailable APRYL, ANNITA ROSAS Unavailable Unavailable APRYL, ANNITA ROSAS Unavailable Unavailable APRYL, ANNITA ROSAS Unavailable Unavailable APRYL, ANNITA ROSAS Unavailable Unavailable APRYL, ANNITA ROSAS Unavailable Unavailable APRYL, ANNITA ROSAS Unavailable Unavailable APRYL, ANNITA ROSAS Unavailable Unavailable APRYL, ANNITA ROSAS Unavailable Unavailable APRYL, ANNITA ROSAS Unavailable Unavailable Pleskach, Paula UNDERGROUND DISTRIBUTION ENGINEER Unavailable Unavailable Pleskach, Paula UNDERGROUND DISTRIBUTION ENGINEER Unavailable Unavailable Pleskach, Paula UNDERGROUND DISTRIBUTION ENGINEER Unavailable Unavailable Pleskach, Paula UNDERGROUND DISTRIBUTION ENGINEER Unavailable Unavailable Pleskach, Paula UNDERGROUND DISTRIBUTION ENGINEER Unavailable Unavailable Pleskach, Paula UNDERGROUND DISTRIBUTION ENGINEER Unavailable Unavailable Pleskach, Paula UNDERGROUND DISTRIBUTION ENGINEER Unavailable Unavailable Pleskach, Paula UNDERGROUND DISTRIBUTION ENGINEER Unavailable Unavailable Pleskach, Paula UNDERGROUND DISTRIBUTION ENGINEER Unavailable Unavailable Pleskach, Paula UNDERGROUND DISTRIBUTION ENGINEER Unavailable Unavailable Pleskach, Paula UNDERGROUND DISTRIBUTION ENGINEER Unavailable Unavailable Pleskach, Paula UNDERGROUND DISTRIBUTION ENGINEER Unavailable Unavailable Pleskach, Paula UNDERGROUND DISTRIBUTION ENGINEER Unavailable Unavailable Pleskach, Paula UNDERGROUND DISTRIBUTION ENGINEER Unavailable Unavailable Pleskach, Paula UNDERGROUND DISTRIBUTION ENGINEER Unavailable Unavailable Pleskach, Paula UNDERGROUND DISTRIBUTION ENGINEER Unavailable Unavailable Pleskach, Paula UNDERGROUND DISTRIBUTION ENGINEER Unavailable Unavailable Pleskach, Paula UNDERGROUND DISTRIBUTION ENGINEER Unavailable Unavailable Pleskach, Paula UNDERGROUND DISTRIBUTION ENGINEER Unavailable Unavailable Pleskach, Paula UNDERGROUND DISTRIBUTION ENGINEER Unavailable Unavailable Pleskach, Paula UNDERGROUND DISTRIBUTION ENGINEER Unavailable Unavailable Pleskach, Paula UNDERGROUND DISTRIBUTION ENGINEER Unavailable Unavailable Pleskach, Paula UNDERGROUND DISTRIBUTION ENGINEER Unavailable Unavailable Pleskach, Paula UNDERGROUND DISTRIBUTION ENGINEER Unavailable Unavailable Pleskach, Paula UNDERGROUND DISTRIBUTION ENGINEER Unavailable Unavailable Pleskach, Paula UNDERGROUND DISTRIBUTION ENGINEER Unavailable Unavailable Pleskach, Paula UNDERGROUND DISTRIBUTION ENGINEER Unavailable Unavailable Pleskach, Paula UNDERGROUND DISTRIBUTION ENGINEER Unavailable Unavailable Pleskach, Paula UNDERGROUND DISTRIBUTION ENGINEER Unavailable Unavailable Pleskach, Paula UNDERGROUND DISTRIBUTION ENGINEER Unavailable Unavailable Pleskach, Paula UNDERGROUND DISTRIBUTION ENGINEER Unavailable Unavailable Pleskach, Paula UNDERGROUND DISTRIBUTION ENGINEER Unavailable Unavailable Pleskach, Paula UNDERGROUND DISTRIBUTION ENGINEER Unavailable Unavailable Pleskach, Paula UNDERGROUND DISTRIBUTION ENGINEER Unavailable Unavailable Pleskach, Paula UNDERGROUND DISTRIBUTION ENGINEER Unavailable Unavailable Pleskach, Paula UNDERGROUND DISTRIBUTION ENGINEER Unavailable Unavailable Pleskach, Paula UNDERGROUND DISTRIBUTION ENGINEER Unavailable Unavailable Pleskach, Paula UNDERGROUND DISTRIBUTION ENGINEER Unavailable Unavailable Pleskach, Paula UNDERGROUND DISTRIBUTION ENGINEER Unavailable Unavailable Pleskach, Paula UNDERGROUND DISTRIBUTION ENGINEER Unavailable Unavailable Pleskach, Paula UNDERGROUND DISTRIBUTION ENGINEER Unavailable Unavailable Pleskach, Paula UNDERGROUND DISTRIBUTION ENGINEER Unavailable Unavailable Pleskach, Paula UNDERGROUND DISTRIBUTION ENGINEER Unavailable Unavailable Pleskach, Paula UNDERGROUND DISTRIBUTION ENGINEER Unavailable Unavailable Maddy Garcia MD Unavailable Unavailable Maddy Garcia MD Unavailable Unavailable Maddy Garcia MD Unavailable Unavailable Maddy Garcia MD Unavailable Unavailable Maddy Garcia MD Unavailable Unavailable Maddy Garcia MD Unavailable Unavailable Maddy Garcia MD Unavailable Unavailable Maddy Garcia MD Unavailable Unavailable Maddy Garcia MD Unavailable Unavailable Maddy Garcia MD Unavailable Unavailable Maddy Garcia MD Unavailable Unavailable Maddy Garcia MD Unavailable Unavailable Jose, Maddy Rowley MD Unavailable Unavailable Jose, Maddy Rowley MD Unavailable Unavailable Jose, Maddy Rowley MD Unavailable Unavailable Jose, Maddy Rowley MD Unavailable Unavailable Jose, Maddy Rowley MD Unavailable Unavailable Jose, Maddy Rowley MD Unavailable Unavailable Jose, Maddy Rowley MD Unavailable Unavailable Jose, Maddy Rowley MD Unavailable Unavailable Jose, Maddy Rowley MD Unavailable Unavailable Jose, Maddy Rowley MD Unavailable Unavailable Jose, Maddy Rowley MD Unavailable Unavailable Jose, Maddy Rowley MD Unavailable Unavailable Jose, Maddy Rowley MD Unavailable Unavailable Jose, Maddy Rowley MD Unavailable Unavailable Jose, Maddy Rowley MD Unavailable Unavailable Jose, Maddy Rowley MD Unavailable Unavailable Jose, Maddy Rowley MD Unavailable Unavailable Jose, Maddy Rowley MD Unavailable Unavailable Jose, A Halley ROSAS Unavailable Unavailable Jose, A Halley ROSAS Unavailable Unavailable Jose, A Halley ROSAS Unavailable Unavailable Jose, A Halley ROSAS Unavailable Unavailable Jose, A Halley ROSAS Unavailable Unavailable Jose, A Halley ROSAS Unavailable Unavailable Jose, Maddy Rowley MD Unavailable Unavailable Jose, A Halley ROSAS Unavailable Unavailable Jose, A Halley ROSAS Unavailable Unavailable Jose, A Halley ROSAS Unavailable Unavailable Jose, A Halley ROSAS Unavailable Unavailable Jose, A Halley ROSAS Unavailable Unavailable Jose, Maddy Rowley MD Unavailable Unavailable Jose, Maddy Rowley MD Unavailable Unavailable Jose, Maddy Rowley MD Unavailable Unavailable Jose, A Halley ROSAS Unavailable Unavailable Jose, A Halley ROSAS Unavailable Unavailable Jose, A Halley ROSAS Unavailable Unavailable Jose, A Halley ROSAS Unavailable Unavailable Jose, Maddy Rowley MD Unavailable Unavailable Jose, Maddy Rowley MD Unavailable Unavailable Jose, Maddy Rowley MD Unavailable Unavailable Jose, Maddy Rowley MD Unavailable Unavailable Jose, Maddy Rowley MD Unavailable Unavailable Jose, Maddy Rowley MD Unavailable Unavailable Jose, Maddy Rowley MD Unavailable Unavailable Jose, Maddy Rowley MD Unavailable Unavailable Jose, Maddy Rowley MD Unavailable Unavailable Jose, Maddy Rowley MD Unavailable Unavailable Jose, Maddy Rowley MD Unavailable Unavailable Jose, Maddy Rowley MD Unavailable Unavailable Jose, Maddy Rowley MD Unavailable Unavailable Jose, Maddy Rowley MD Unavailable Unavailable Jose, A Halley ROSAS Unavailable Unavailable Jose, A Halley ROSAS Unavailable Unavailable Jose, A Halley ROSAS Unavailable Unavailable Jose, Maddy Rowley MD Unavailable Unavailable Jose, Maddy Rowley MD Unavailable Unavailable Jose, Maddy Rowley MD Unavailable Unavailable Jose, Maddy Rowley MD Unavailable Unavailable Jose, Maddy Rowley MD Unavailable Unavailable Jose, Maddy Rowley MD Unavailable Unavailable Jose, Maddy Rowley MD Unavailable Unavailable Jose, Maddy Rowley MD Unavailable Unavailable Jose, Maddy Rowley MD Unavailable Unavailable Jose, A Halley MD Unavailable Unavailable Maddy Garcia MD Unavailable Unavailable Maddy Garcia MD Unavailable Unavailable Maddy Garcia MD Unavailable Unavailable Maddy Garcia MD Unavailable Unavailable Maddy Garcia MD Unavailable Unavailable Maddy Garcia MD Unavailable Unavailable Enedina Aguila MD Unavailable Unavailable Enedina Aguila MD Unavailable Unavailable Enedina Aguila MD Unavailable Unavailable Enedina Aguila MD Unavailable Unavailable Enedina Aguila MD Unavailable Unavailable Enedina Aguila MD Unavailable Unavailable Enedina Aguila MD Unavailable Unavailable Enedina Aguila MD Unavailable Unavailable Enedina Aguila MD Unavailable Unavailable Enedina Aguila MD Unavailable Unavailable Enedina Aguila MD Unavailable Unavailable Enedina Aguila MD Unavailable Unavailable Enedina Aguila MD Unavailable Unavailable Enedina Aguila MD Unavailable Unavailable Enedina Aguila MD Unavailable Unavailable Enedina Aguila MD Unavailable Unavailable Enedina Aguila MD Unavailable Unavailable Enedina Aguila MD Unavailable Unavailable Enedina Aguila MD Unavailable Unavailable Enedina Aguila MD Unavailable Unavailable Enedina Aguila MD Unavailable Unavailable Enedina Aguila MD Unavailable Unavailable Enedina Aguila MD Unavailable Unavailable Enedina Aguila MD Unavailable Unavailable Enedina Aguila MD Unavailable Unavailable ARIF, Marily CROWDER MD Unavailable Unavailable ARIF, Marily CROWDER MD Unavailable Unavailable ARIF, Marily CROWDER MD Unavailable Unavailable ARIF, Marily CROWDER MD Unavailable Unavailable ARIF, O VEL ROSAS Unavailable Unavailable ARIF, O VEL ROSAS Unavailable Unavailable ARIF, O VEL ROSAS Unavailable Unavailable ARIF, O VEL ROSAS Unavailable Unavailable ARIF, O VEL ROSAS Unavailable Unavailable ARIF, O VEL ROSAS Unavailable Unavailable ARIF, O VEL ROSAS Unavailable Unavailable ARIF, O VEL ROSAS Unavailable Unavailable ARIF, O VEL ROSAS Unavailable Unavailable ARIF, O VEL ROSAS Unavailable Unavailable ARIF, O VEL ROSAS Unavailable Unavailable ARIF, O VEL ROSAS Unavailable Unavailable ARIF, O VEL ROSAS Unavailable Unavailable ARIF, O VEL ROSAS Unavailable Unavailable ARIF, O VEL ROSAS Unavailable Unavailable ARIF, O CROWDER MD Unavailable Unavailable ARIF, O CROWDER MD Unavailable Unavailable ARIF, O CROWDER MD Unavailable Unavailable ARIF, O CROWDER MD Unavailable Unavailable ARIF, O CROWDER MD Unavailable Unavailable ARIF, O CROWDER MD Unavailable Unavailable ARIF, O CROWDER MD Unavailable Unavailable ARIF, O CROWDER MD Unavailable Unavailable ARIF, O CROWDER MD Unavailable Unavailable ARIF, O CROWDER MD Unavailable Unavailable ARIF, O CROWDER MD Unavailable Unavailable ARIF, O CROWDER MD Unavailable Unavailable ARIF, O CROWDER MD Unavailable Unavailable ARIF, O CROWDER MD Unavailable Unavailable ARIF, O CROWDER MD Unavailable Unavailable ARIF, O CROWDER MD Unavailable Unavailable ARIF, O CROWDER MD Unavailable Unavailable ARIF, O CROWDER MD Unavailable Unavailable ARIF, O CROWDER MD Unavailable Unavailable ARIF, O CROWDER MD Unavailable Unavailable ARIF, O CROWDER MD Unavailable Unavailable ARIF, O CROWDER MD Unavailable Unavailable ARIF, O CROWDER MD Unavailable Unavailable ARIF, O CROWDER MD Unavailable Unavailable ARIF, O CROWDER MD Unavailable Unavailable ARIF, O CROWDER MD Unavailable Unavailable Re-disclosure Warning The records that you are about to access may contain information from federally-assisted alcohol or drug abuse programs. If such information is present, then the following federally mandated warning applies: This information has been disclosed to you from records protected by federal confidentiality rules (42 CFR part 2). The federal rules prohibit you from making any further disclosure of this information unless further disclosure is expressly permitted by the written consent of the person to whom it pertains or as otherwise permitted by 42 CFR part 2. A general authorization for the release of medical or other information is NOT sufficient for this purpose. The Federal rules restrict any use of the information to criminally investigate or prosecute any alcohol or drug abuse patient.The records that you are about to access may contain highly sensitive health information, the redisclosure of which is protected by Article 27-F of the [facility] Public Health law. If you continue you may have access to information: Regarding HIV / AIDS; Provided by facilities licensed or operated by the [facility] Office of Mental Health; or Provided by the [facility] Office for People With Developmental Disabilities. If such information is present, then the following [facility] mandated warning applies: This information has been disclosed to you from confidential records which are protected by state law. State law prohibits you from making any further disclosure of this information without the specific written consent of the person to whom it pertains, or as otherwise permitted by law. Any unauthorized further disclosure in violation of state law may result in a fine or group home sentence or both. A general authorization for the release of medical or other information is NOT sufficient authorization for further disc losure. Family History Family Member Name Family Member Gender Family Member Status Date o f Status Description Data Source(s) Unknown Unknown Problem [facility] ([facility] Brain stem mother Unknown Unknown Problem [facility] ([facility] Unknown Unknown Problem [facility] ([facility] mother Encounters Encounter Providers Location Date Indications Data Source(s ) Outpatient Attender: HERNAN Dasilva/[place] 06/06/2021 02:30:00 PM EDT [facility] ([facility] Outpatient Attender: Paula Friedman [facility] Main Office 06/06/2021 0 9:45:00 AM EDT [facility] ([facility] Outpatient Attender: Paula Friedman [facility] Main Office 05/15/2021 0 1:30:00 PM EDT [facility] ([facility] Outpatient Attender: HERNAN Slaughter/Rein norma 04/10/2021 11:30:00 AM EDT [facility] ([facility] Outpatient Attender: HERNAN Slaughter/[place] 03/07/2021 03:30:00 PM EDT [facility] ([facility] Outpatient Attender: Halley Garcia MD Main Office 03/07/2021 09:30:0 0 AM EDT [facility] ([facility] Outpatient Attender: Fay GREWAL.ETHAN-URI.ETHAN 2020 09:20:56 AM EDT - 12/27/2020 10:07:06 AM EDT [facility] Outpatient Attender: VEL PALOMO MD [id number] 12/05 12:00:00 AM EDT - 12/05/2020 02:11:20 PM EDT [facility] Outpatient Attender: Rhona Aguila MD 0 11/09/2020 02:10:34 PM EDT - 11/09/2020 02:43:56 PM EDT [facility] ([facility] Outpatient Referrer: VEL PALOMO MD 10/25/2020 12: 00:00 AM EST Crohn's disease of small intestine with intestinal obstruction [facility] Crohn's disease of small intestine with intestinal obstruction Outpatient Attender: HERNAN Dasilva/Michelle/Satya/Rein dl 09/13/2020 10:30:00 AM EST [facility] ([facility] Outpatient Attender: VEL PALOMO MD [id number] 08/31 12:00:00 AM EST - 08/31/2020 03:39:49 PM EST Crohn's disease of small intestine with intestinal obstruction [facility] Crohn's disease of small intestine with intestinal obstruction Outpatient Attender: Britany Napoles PA-C Main Office 08/30/2020 01:45:00 PM EST [facility] ([facility] Outpatient Attender: Fay LUCIANO-SJP.ETHAN 2020 12:00:00 AM EST - 08/23/2020 02:50:36 PM EST [facility] Outpatient Attender: HERNAN Dasilva/Michelle/Satya/Rein dl 06/21/2020 09:30:00 AM EST [facility] ([facility] Outpatient Attender: Fay Oakes jennie: ANNITA ROBBINSeferrer: Fay LUCIANO-SJP.ETHAN 06/14/2020 12:00:00 AM EDT - 06/14/2020 04:37:04 PM EDT [facility] Outpatient Attender: Britany Napoles PA-C Main Office 05/31/2020 02:00:00 PM EDT [facility] ([facility] Outpatient Attender: VEL PALOMO MDReferrer: Halley Dhaliwal ms, MD [id number] 05/25/2020 12:00:00 AM EDT - 05/25/2020 04:01:02 PM EDT Crohn's disease of small intestine with intestinal obstruction [facility] Crohn's disease of small intestine with intestinal obstruction Outpatient Referrer: VEL PALOMO MD 05/24/2020 02: 16:00 PM EDT Second degree hemorrhoids [facility] Second degree hemorrhoids Outpatient Attender: VEL PALOMO MD 05/24/2020 12:00:00 AM EDT [facility] Outpatient Attender: Fay Leos RNPReferrer: Fay LUCIANO-SJCrystal.ETHAN 05/10/2020 02:28:19 PM EDT - 05/10/2020 03:21:12 PM EDT [facility] Outpatient Attender: VEL PALOMO MD 04/27/2020 12:00:00 AM EDT [facility] Outpatient SJP.[email or web address] 04/26/2020 07:53:46 AM EDT [facility] Outpatient Attender: ANNITA LUCIANO-SJP.ETHAN 0 12:00:00 AM EDT - 04/19/2020 02:53:57 PM EDT [facility] Immunizations Vaccine Date Status Description Data Source(s) pneumococcal polysaccharide PPV23 05/08/2021 01:40:00 PM EDT levi husam [facility] ([facility] New in 2012. IIV4 05/08/2021 01:40:00 PM EDT completed [facility] ([facility] This CVX code allows reporting of a vacc ination when formulation is unknown (for example, when recording a Influenza vaccination when noted on a vaccination card) 08/20/2020 02:04:00 PM EST completed [facility] ([facility] INFLUENZA VIRUS VACCINE QUADRIVAL SPLIT 2019-(65 YR UP)/PF 08/20/2020 12:00:00 AM EST completed [facility] Medications Medication Brand Name Start Date Product Form Dose Route Admi nistrative Instructions Pharmacy Instructions Status Indications Reaction Description Data Source(s) 4 mg 06/12/2021 12:00:00 AM EDT tablet 60 TAKE ONE TABLET BY MOUTH EVERY 12 HOURS NEEDED FOR NAUSEA TAKE ONE TABLET BY MOUTH EVERY 12 HOURS NEEDED FOR NAUSEA SOLD: 06/18/2021 [facility] 3 mg 06/07/2021 12:00:00 AM EDT capsule,delayed,extend. release 90 TAKE THREE CAPSULES BY MOUTH EVERY DAY TAKE THREE CAPSULES BY MOUTH EVERY DAY SOLD: 06/08/2021 [facility] 2.5 mg 06/07/2021 12:00:00 AM EDT tablet 20 TAKE 5 TABLETS BY MOUTH ONCE A WEEK TAKE 5 TABLETS BY MOUTH ONCE A WEEK SOLD: 06/08/2021 [facility] 20 mg 06/06/2021 12:00:00 AM EDT tablet 90 TAKE ONE TABLET BY MOUTH EVERY DAY TAKE ONE TABLET BY MOUTH EVERY DAY SOLD: 06/08/2021 [facility] 250 mg magnesium 06/06/2021 12:00:00 AM EDT tablet 30 TAKE ONE TABLET BY MOUTH EVERY DAY TAKE ONE TABLET BY MOUTH EVERY DAY SOLD: 06/08/2021 [facility] Methotrexate 2.5 MG Oral Tablet Methotrexate 06/06/2021 12:00:00 AM E DT ORAL active [facility] ([facility]) 100 mg 05/22/2021 12:00:00 AM EDT tablet 90 TAKE ONE TABLET BY MOUTH EVERY DAY TAKE ONE TABLET BY MOUTH EVERY DAY SOLD: 05/29/2021 [facility] Onetouch Ultra 05/12/2021 12:00:00 AM EDT act fransico MEDENT ([facility] BLOOD SUGAR DIAGNOSTIC 05/12/2021 12:00:00 AM EDT strip 300 USE TO CHECK BLOOD SUGAR THREE TIMES A DAY USE TO CHECK BLOOD SUGAR THREE TIMES A DAY SOLD: 05/13/2021 [facility] 4 mg 04/18/2021 12:00:00 AM EDT tablet 60 TAKE ONE TABLET BY MOUTH EVERY 12 HOURS NEEDED FOR NAUSEA TAKE ONE TABLET BY MOUTH EVERY 12 HOURS NEEDED FOR NAUSEA SOLD: 05/21/2021 [facility] 4 mg 04/18/2021 12:00:00 AM EDT tablet 60 TAKE ONE TABLET BY MOUTH EVERY 12 HOURS NEEDED FOR NAUSEA TAKE ONE TABLET BY MOUTH EVERY 12 HOURS NEEDED FOR NAUSEA SOLD: 04/20/2021 [facility] 50 mg 04/17/2021 12:00:00 AM EDT tablet 90 TAKE THREE TABLETS BY MOUTH EVERY DAY TAKE THREE TABLETS BY MOUTH EVERY DAY SOLD: 04/19/2021 [facility] Azathioprine 50 MG Oral Tablet Azathioprine 04/10/2021 12:00:00 AM EDT ORAL completed [facility] ([facility], ) 50 mg 03/08/2021 12:00:00 AM EDT tablet 60 TAKE TWO TABLETS BY MOUTH EVERY DAY TAKE TWO TABLETS BY MOUTH EVERY DAY SOLD: 04/03/2021 [facility] 1,000 mcg 03/08/2021 12:00:00 AM EDT tablet 90 TAKE ONE TABLET BY MOUTH EVERY DAY TAKE ONE TABLET BY MOUTH EVERY DAY SOLD: 03/09/2021 [facility] 50 mg 03/08/2021 12:00:00 AM EDT tablet 60 TAKE TWO TABLETS BY MOUTH EVERY DAY TAKE TWO TABLETS BY MOUTH EVERY DAY SOLD: 03/09/2021 [facility] 3 mg 03/08/2021 12:00:00 AM EDT capsule,delayed,extend. release 90 TAKE THREE CAPSULES BY MOUTH EVERY DAY FOR CROHNS DISEASE TAKE THREE CAPSULES BY MOUTH EVERY DAY FOR CROHNS DISEASE SOLD: 03/09/2021 [email or web address] Budesonide 3 MG Delayed Release Oral Capsule BUDESONIDE 03/08/2021 12:00:00 AM EDT capsule,delayed,extend.release 90 T NAMITA THREE CAPSULES BY MOUTH EVERY DAY FOR CROHNS DISEASE TAKE THREE CAPSULES BY MOUTH EVERY DAY FOR CROHNS DISE ASE SOLD: 04/16/2021 [facility] dapagliflozin 5 MG Oral Tablet [Farxiga] Farxiga 03/07/2021 12:00: 00 AM EDT ORAL active [facility] ([facility] 5 mg 03/07/2021 12:00:00 AM EDT tablet 90 TAKE ONE TABLET BY MOUTH EVERY MORNING TAKE ONE TABLET BY MOUTH EVERY MORNING SOLD: 06/08/2021 [facility] 5 mg 03/07/2021 12:00:00 AM EDT tablet 90 TAKE ONE TABLET BY MOUTH EVERY MORNING TAKE ONE TABLET BY MOUTH EVERY MORNING SOLD: 03/09/2021 [facility] Vitamin B 12 1 MG Oral Tablet Vitamin B-12 03/07/2021 12:00:00 AM EDT active [facility] ([facility], ) Azathioprine 50 MG Oral Tablet Azathioprine 03/07/2021 12:00:00 AM EDT completed [facility]ENT ([facility], ) 4 mg 03/03/2021 12:00:00 AM EDT tablet 60 TAKE ONE TABLET BY MOUTH EVERY 12 HOURS NEEDED FOR NAUSEA TAKE ONE TABLET BY MOUTH EVERY 12 HOURS NEEDED FOR NAUSEA SOLD: 03/03/2021 [facility] 25 mg 02/14/2021 12:00:00 AM EDT tablet 90 TAKE ONE TABLET BY MOUTH EVERY DAY TAKE ONE TABLET BY MOUTH EVERY DAY SOLD: 05/14/2021 [facility] 300 mg 02/14/2021 12:00:00 AM EDT capsule 270 TAKE ONE CAPSULE BY MOUTH THREE TIMES A DAY TAKE ONE CAPSULE BY MOUTH THREE TIMES A DAY SOLD: 05/14/2021 [facility] pantoprazole 40 MG Delayed Release Oral Tablet PANTOPRAZOLE SODIUM 02/14/2021 12:00:00 AM EDT tablet,delayed release (DR/EC) 90 T NAMITA ONE TABLET BY MOUTH EVERY DAY TAKE ONE TABLET BY MOUTH EVERY DAY SOLD: 05/14/2021 [facility] 1,000 mg 02/14/2021 12:00:00 AM EDT tablet 180 TAKE ONE TABLET BY MOUTH TWICE A DAY WITH MEALS FOR DIABETES TAKE ONE TABLET BY MOUTH TWICE A DAY WIT H MEALS FOR DIABETES SOLD: 02/16/2021 [facility] 33 gauge 02/14/2021 12:00:00 AM EDT misc 100 ONCE DAILY DIRECTED ONCE DAILY DIRECTED SOLD: 02/16/2021 [facility] atorvastatin 10 MG Oral Tablet ATORVASTATIN CALCIUM 02/14/2021 1 2:00:00 AM EDT tablet 90 TAKE ONE TABLET BY MOUTH EVERY D AY TAKE ONE TABLET BY MOUTH EVERY DAY SOLD: 02/16/2021 [facility] 25 mg 02/14/2021 12:00:00 AM EDT tablet 90 TAKE ONE TABLET BY MOUTH EVERY DAY TAKE ONE TABLET BY MOUTH EVERY DAY SOLD: 02/16/2021 [facility] 300 mg 02/14/2021 12:00:00 AM EDT capsule 270 TAKE ONE CAPSULE BY MOUTH THREE TIMES A DAY TAKE ONE CAPSULE BY MOUTH THREE TIMES A DAY SOLD: 02/16/2021 [facility] pantoprazole 40 MG Delayed Release Oral Tablet PANTOPRAZOLE SODIUM 02/14/2021 12:00:00 AM EDT tablet,delayed release (DR/EC) 90 T NAMITA ONE TABLET BY MOUTH EVERY DAY TAKE ONE TABLET BY MOUTH EVERY DAY SOLD: 02/16/2021 [facility] 1,000 mg 02/14/2021 12:00:00 AM EDT tablet 180 TAKE ONE TABLET BY MOUTH TWICE A DAY WITH MEALS FOR DIABETES TAKE ONE TABLET BY MOUTH TWICE A DAY WIT H MEALS FOR DIABETES SOLD: 05/14/2021 [facility] 33 gauge 02/14/2021 12:00:00 AM EDT misc 7 ONCE DAILY DIRECTED ONCE DAILY DIRECTED SOLD: 05/13/2021 [facility] atorvastatin 10 MG Oral Tablet ATORVASTATIN CALCIUM 02/14/2021 1 2:00:00 AM EDT tablet 90 TAKE ONE TABLET BY MOUTH EVERY D AY TAKE ONE TABLET BY MOUTH EVERY DAY SOLD: 05/14/2021 [facility] 5-325 mg 01/25/2021 12:00:00 AM EDT tablet 15 TAKE ONE TABLET BY MOUTH THREE TIMES A DAY NEEDED FOR PAIN MAXIMUM DAILY DOSE = 3 TAKE ONE TABLET BY MOUTH THREE TIMES A DAY NEEDED FOR PAIN MAXIMUM DAILY DOSE = 3 SOLD: 01/26/2021 [facility] 25 mg 01/25/2021 12:00:00 AM EDT tablet 180 TAKE ONE TABLET BY MOUTH TWICE A DAY TAKE ONE TABLET BY MOUTH TWICE A DAY SOLD: 01/26/2021 [facility] 10 mg 01/25/2021 12:00:00 AM EDT tablet 65 TAKE 4 TABLETS BY MOUTH ONCE A DAY FOR 10 DAYS THEN 2 ONCE DAILY FOR 7 DAYS THEN 1 ONCE DAILY FOR 6 DAYS THEN 1/2 FOR 8 DAYS TAKE 4 TABLETS BY MOUTH ONCE A DAY FOR 1 0 DAYS THEN 2 ONCE DAILY FOR 7 DAYS THEN 1 ONCE DAILY FOR 6 DAYS THEN 1/2 FOR 8 DAYS SOLD: 01/26/2021 [facility] 25 mg 01/25/2021 12:00:00 AM EDT tablet 180 TAKE ONE TABLET BY MOUTH TWICE A DAY TAKE ONE TABLET BY MOUTH TWICE A DAY SOLD: 04/16/2021 [facility] 3 mg 01/24/2021 12:00:00 AM EDT capsule,delayed,extend. release 90 TAKE THREE CAPSULES BY MOUTH EVERY DAY TAKE THREE CAPSULES BY MOUTH EVERY DAY SOLD: 01/26/2021 [facility] 4 mg 12/21/2020 12:00:00 AM EDT tablet 60 TAKE ONE TABLET BY MOUTH EVERY 12 HOURS NEEDED FOR NAUSEA TAKE ONE TABLET BY MOUTH EVERY 12 HOURS NEEDED FOR NAUSEA SOLD: 12/25/2020 [facility] 4 mg 12/21/2020 12:00:00 AM EDT tablet 60 TAKE ONE TABLET BY MOUTH EVERY 12 HOURS NEEDED FOR NAUSEA TAKE ONE TABLET BY MOUTH EVERY 12 HOURS NEEDED FOR NAUSEA SOLD: 01/26/2021 [facility] 250 mg magnesium 11/13/2020 12:00:00 AM EDT tablet 30 TAKE ONE TABLET BY MOUTH EVERY DAY TAKE ONE TABLET BY MOUTH EVERY DAY SOLD: 02/16/2021 [facility] 100 mg 11/13/2020 12:00:00 AM EDT tablet 90 TAKE ONE TABLET BY MOUTH EVERY DAY TAKE ONE TABLET BY MOUTH EVERY DAY SOLD: 02/16/2021 [facility] 250 mg magnesium 11/13/2020 12:00:00 AM EDT tablet 30 TAKE ONE TABLET BY MOUTH EVERY DAY TAKE ONE TABLET BY MOUTH EVERY DAY SOLD: 01/11/2021 [facility] 100 mg 11/13/2020 12:00:00 AM EDT tablet 90 TAKE ONE TABLET BY MOUTH EVERY DAY TAKE ONE TABLET BY MOUTH EVERY DAY SOLD: 11/14/2020 [facility] 250 mg magnesium 11/13/2020 12:00:00 AM EDT tablet 30 TAKE ONE TABLET BY MOUTH EVERY DAY TAKE ONE TABLET BY MOUTH EVERY DAY SOLD: 11/14/2020 [facility] 250 mg magnesium 11/13/2020 12:00:00 AM EDT tablet 30 TAKE ONE TABLET BY MOUTH EVERY DAY TAKE ONE TABLET BY MOUTH EVERY DAY SOLD: 12/14/2020 [facility] 250 mg magnesium 11/13/2020 12:00:00 AM EDT tablet 30 TAKE ONE TABLET BY MOUTH EVERY DAY TAKE ONE TABLET BY MOUTH EVERY DAY SOLD: 04/16/2021 [facility] 250 mg magnesium 11/13/2020 12:00:00 AM EDT tablet 30 TAKE ONE TABLET BY MOUTH EVERY DAY TAKE ONE TABLET BY MOUTH EVERY DAY SOLD: 03/19/2021 [facility] 250 mg magnesium 11/13/2020 12:00:00 AM EDT tablet 30 TAKE ONE TABLET BY MOUTH EVERY DAY TAKE ONE TABLET BY MOUTH EVERY DAY SOLD: 05/21/2021 [facility] 3 mg 11/09/2020 12:00:00 AM EDT capsule,delayed,extend. release 90 TAKE THREE CAPSULES BY MOUTH EVERY DAY FOR CROHNS DISEASE TAKE THREE CAPSULES BY MOUTH EVERY DAY FOR CROHNS DISEASE SOLD: 12/14/2020 [facility] 3 mg 11/09/2020 12:00:00 AM EDT capsule,delayed,extend. release 90 TAKE THREE CAPSULES BY MOUTH EVERY DAY FOR CROHNS DISEASE TAKE THREE CAPSULES BY MOUTH EVERY DAY FOR CROHNS DISEASE SOLD: 11/13/2020 [facility] 100 mg 11/09/2020 12:00:00 AM EDT capsule 14 TAKE ONE CAPSULE BY MOUTH TWICE A DAY FOR 7 DAYS TAKE ONE CAPSULE BY MOUTH TWICE A DAY FOR 7 DAYS SOLD: 11/09/2020 [facility] gadobutrol (GADAVIST) contrast injection 7.5 mL [id number] 10/25/2020 04:15:00 PM EST 0.1 mL/kg Intravenous completed 7.5 mL (rounded from 7.71 mL = 0.1 mL/kg 77.1 kg), Intravenous, 1 TIME IMAGING, Fri10/25/20 at 1615, For 1 dose, Imaging Protocol
Do not mix or administer in the same IV line with other medic ations.
[facility] Medication administered onsite barium (VOLUMEN) 0.1 % suspension 450 mL [id number] 10/25/2020 02 :15:00 PM EST 450 mL Oral completed 450 mL, Or al, 1 TIME IMAGING, Fri10/25/20 at 1415, For 1 dose, Imaging Protocol [facility] Medication administered onsite barium (VOLUMEN) 0.1 % suspension 450 mL [id number] 10/25/2020 02 :15:00 PM EST 450 mL Oral completed 450 mL, Or al, 1 TIME IMAGING, Fri10/25/20 at 1415, For 1 dose, Imaging Protocol [facility] Medication administered onsite barium (VOLUMEN) 0.1 % suspension 450 mL [id number] 10/25/2020 02 :15:00 PM EST 450 mL Oral completed 450 mL, Or al, 1 TIME IMAGING, 10/25/20 at 1415, For 1 dose [facility] Medication administered onsite 4 mg 10/24/2020 12:00:00 AM EST tablet 60 TAKE ONE TABLET BY MOUTH EVERY 12 HOURS NEEDED FOR NAUSEA TAKE ONE TABLET BY MOUTH EVERY 12 HOURS NEEDED FOR NAUSEA SOLD: 11/26/2020 [facility] 4 mg 10/24/2020 12:00:00 AM EST tablet 60 TAKE ONE TABLET BY MOUTH EVERY 12 HOURS NEEDED FOR NAUSEA TAKE ONE TABLET BY MOUTH EVERY 12 HOURS NEEDED FOR NAUSEA SOLD: 10/26/2020 [facility] 20 mg 09/24/2020 12:00:00 AM EST tablet 90 TAKE ONE TABLET BY MOUTH EVERY DAY TAKE ONE TABLET BY MOUTH EVERY DAY SOLD: 09/25/2020 [facility] 20 mg 09/24/2020 12:00:00 AM EST tablet 90 TAKE ONE TABLET BY MOUTH EVERY DAY TAKE ONE TABLET BY MOUTH EVERY DAY SOLD: 12/29/2020 [facility] 20 mg 09/24/2020 12:00:00 AM EST tablet 90 TAKE ONE TABLET BY MOUTH EVERY DAY TAKE ONE TABLET BY MOUTH EVERY DAY SOLD: 04/03/2021 [facility] 4 mg 08/24/2020 12:00:00 AM EST tablet 60 TAKE ONE TABLET BY MOUTH EVERY 12 HOURS NEEDED FOR NAUSEA TAKE ONE TABLET BY MOUTH EVERY 12 HOURS NEEDED FOR NAUSEA SOLD: 08/25/2020 [facility] 3 mg 08/24/2020 12:00:00 AM EST capsule,delayed,extend. release 90 TAKE THREE CAPSULES BY MOUTH EVERY DAY FOR CROHNS DISEASE TAKE THREE CAPSULES BY MOUTH EVERY DAY FOR CROHNS DISEASE SOLD: 10/05/2020 [facility] 3 mg 08/24/2020 12:00:00 AM EST capsule,delayed,extend. release 90 TAKE THREE CAPSULES BY MOUTH EVERY DAY FOR CROHNS DISEASE TAKE THREE CAPSULES BY MOUTH EVERY DAY FOR CROHNS DISEASE SOLD: 08/27/2020 [facility] 4 mg 08/24/2020 12:00:00 AM EST tablet 60 TAKE ONE TABLET BY MOUTH EVERY 12 HOURS NEEDED FOR NAUSEA TAKE ONE TABLET BY MOUTH EVERY 12 HOURS NEEDED FOR NAUSEA SOLD: 09/25/2020 [facility] Enalapril Maleate 20 MG Oral Tablet enalapril (VASOTEC ) 20 MG tablet enalapril (VASOTEC) 20 MG tablet 08/23/2020 12:00:00 AM EST 20 mg Oral active Type 2 diabetes mellitus without complication, without long-term current use of insulinType 2 diabetes mellitus without complication, unspecified whether snf insulin useHypertension, unspecified type Take 1 tablet (20 mg total) by mouth daily [facility] Type 2 diabetes mellitus without complic ation, without long-term current use of insulin Type 2 diabetes mellitus without complic ation, unspecified whether exterminator helper termite insulin use Hypertension, unspecified type Amlodipine 2.5 MG Oral Tablet amLODIPine (NORVASC) 2.5 MG tablet amLODIPine (NORVASC) 2.5 MG tablet 08/17/2020 12:00:00 AM EST 2.5 mg Oral aborted Take 2.5 mg by mouth daily [facility] 25 mg 07/25/2020 12:00:00 AM EST tablet 60 TAKE ONE TABLET BY MOUTH TWICE A DAY TAKE ONE TABLET BY MOUTH TWICE A DAY SOLD: 12/29/2020 [facility] 25 mg 07/25/2020 12:00:00 AM EST tablet 60 TAKE ONE TABLET BY MOUTH TWICE A DAY TAKE ONE TABLET BY MOUTH TWICE A DAY SOLD: 08/24/2020 [facility] 25 mg 07/25/2020 12:00:00 AM EST tablet 60 TAKE ONE TABLET BY MOUTH TWICE A DAY TAKE ONE TABLET BY MOUTH TWICE A DAY SOLD: 10/26/2020 [facility] 25 mg 07/25/2020 12:00:00 AM EST tablet 60 TAKE ONE TABLET BY MOUTH TWICE A DAY TAKE ONE TABLET BY MOUTH TWICE A DAY SOLD: 07/27/2020 [facility] 25 mg 07/25/2020 12:00:00 AM EST tablet 60 TAKE ONE TABLET BY MOUTH TWICE A DAY TAKE ONE TABLET BY MOUTH TWICE A DAY SOLD: 09/25/2020 [facility] 25 mg 07/25/2020 12:00:00 AM EST tablet 60 TAKE ONE TABLET BY MOUTH TWICE A DAY TAKE ONE TABLET BY MOUTH TWICE A DAY SOLD: 11/26/2020 [facility] Metoprolol Tartrate 25 MG Oral Tablet me toprolol tartrate (LOPRESSOR) 25 MG tablet metoprolol tartrate (LOPRESSOR) 25 MG tablet 07/24/2020 12:0 0:00 AM EST active Hypertension, unspecified typeType 2 diabetes mellitus without complication, unspecified whether exterminator helper termite insulin use TAKE ONE TABLET BY MOUTH TWICE A DAY [facility] Hypertension, unspecified type Type 2 diabetes mellitus without complic ation, unspecified whether exterminator helper termite insulin use 4 mg 07/20/2020 12:00:00 AM EST tablet 30 TAKE 1 TABLET BY MOUTH EVERY 12 HOURS NEEDED FOR NAUSEA TAKE 1 TABLET BY MOUTH EVERY 12 HOURS NEEDED FOR NAUSEA SOLD: 07/21/2020 [facility] 4 mg 07/20/2020 12:00:00 AM EST tablet 30 TAKE 1 TABLET BY MOUTH EVERY 12 HOURS NEEDED FOR NAUSEA TAKE 1 TABLET BY MOUTH EVERY 12 HOURS NEEDED FOR NAUSEA SOLD: 08/06/2020 [facility] 1,000 mcg 06/18/2020 12:00:00 AM EDT tablet 90 TAKE ONE TABLET BY MOUTH EVERY DAY TAKE ONE TABLET BY MOUTH EVERY DAY SOLD: 06/19/2020 [facility] 1,000 mcg 06/18/2020 12:00:00 AM EDT tablet 90 TAKE ONE TABLET BY MOUTH EVERY DAY TAKE ONE TABLET BY MOUTH EVERY DAY SOLD: 11/13/2020 [facility] 1,000 mcg 06/18/2020 12:00:00 AM EDT tablet 90 TAKE ONE TABLET BY MOUTH EVERY DAY TAKE ONE TABLET BY MOUTH EVERY DAY SOLD: 08/20/2020 [facility] 20 mg 06/15/2020 12:00:00 AM EDT tablet 90 TAKE ONE TABLET BY MOUTH TWICE A DAY TAKE ONE TABLET BY MOUTH TWICE A DAY SOLD: 06/18/2020 [facility] Enalapril Maleate 20 MG Oral Tablet enalapril (VASOTEC ) 20 MG tablet enalapril (VASOTEC) 20 MG tablet 06/14/2020 12:00:00 AM EDT 20 mg Oral aborted Type 2 diabetes mellitus without complication, without long-term current use of insulinType 2 diabetes mellitus without complication, unspecified whether exterminator helper termite insulin useHypertension, unspecified type Take 1 tablet (20 mg total) by mouth 2 (two) times a day [facility] Type 2 diabetes mellitus without complic ation, without long-term current use of insulin Type 2 diabetes mellitus without complic ation, unspecified whether exterminator helper termite insulin use Hypertension, unspecified type 4 mg 06/12/2020 12:00:00 AM EDT tablet 30 TAKE ONE TABLET BY MOUTH EVERY 12 HOURS NEEDED FOR NAUSEA TAKE ONE TABLET BY MOUTH EVERY 12 HOURS NEEDED FOR NAUSEA SOLD: 06/30/2020 [facility] 4 mg 06/12/2020 12:00:00 AM EDT tablet 30 TAKE ONE TABLET BY MOUTH EVERY 12 HOURS NEEDED FOR NAUSEA TAKE ONE TABLET BY MOUTH EVERY 12 HOURS NEEDED FOR NAUSEA SOLD: 06/15/2020 [facility] Budesonide 3 MG Delayed Release Oral Cap hayde budesonide (ENTOCORT EC) 3 MG 24 hr capsule budesonide (ENTOCORT EC) 3 MG 24 hr capsule 06/12/2020 12:00 :00 AM EDT aborted [facility] Budesonide 3 MG Delayed Release Oral Capsule BUDESONIDE 06/12/2020 12:00:00 AM EDT capsule,delayed,extend.release 90 T NAMITA ONE CAPSULE BY MOUTH EVERY DAY FOR CROHNS DISEASE TAKE ONE CAPSULE BY MOUTH EVERY DAY FOR CROHNS DISEASE SOLD: 06/15/2020 [facility] 100 mg 06/01/2020 12:00:00 AM EDT tablet 90 TAKE ONE TABLET BY MOUTH EVERY DAY TAKE ONE TABLET BY MOUTH EVERY DAY SOLD: 06/04/2020 [facility] 100 mg 06/01/2020 12:00:00 AM EDT tablet 90 TAKE ONE TABLET BY MOUTH EVERY DAY TAKE ONE TABLET BY MOUTH EVERY DAY SOLD: 08/20/2020 [facility] 33 gauge 05/31/2020 12:00:00 AM EDT misc 100 ONCE DAILY DIRECTED ONCE DAILY DIRECTED SOLD: 06/01/2020 [facility] 33 gauge 05/31/2020 12:00:00 AM EDT misc 100 ONCE DAILY DIRECTED ONCE DAILY DIRECTED SOLD: 08/20/2020 [facility] 33 gauge 05/31/2020 12:00:00 AM EDT misc 100 ONCE DAILY DIRECTED ONCE DAILY DIRECTED SOLD: 11/13/2020 [facility] sitagliptin 100 MG Oral Tablet [Januvia] JANUVIA 100 M G tablet JANUVIA 100 MG tablet 05/31/2020 12:00:00 AM EDT 100 mg Oral active Take 100 mg by mouth daily [facility] sitagliptin 100 MG Oral Tablet [Januvia] Januvia 05/31/2020 12:00: 00 AM EDT ORAL active [facility] ([facility] Amlodipine 2.5 MG Oral Tablet amLODIPine (NORVASC) 2.5 MG tablet amLODIPine (NORVASC) 2.5 MG tablet 05/30/2020 12:00:00 AM EDT 2.5 mg Oral aborted Take 2.5 mg by mouth daily [facility] 10 mg 05/29/2020 12:00:00 AM EDT tablet 49 TAKE 6 TABLETS ON DAYS 1-3,. THEN 5 TABLETS ON DAYS 4-5, 4 TABLETS ON DAYS 6-7, 3 TABLETS ON DAYS 8-9, 2 TABLETS ON DAYS 10-11, AND 1 TABLET DAILY ON DAYS 12-14 TAKE 6 TABLETS ON DAYS 1-3,. THEN 5 TABLETS ON DAYS 4-5, 4 TABLETS ON DAYS 6-7, 3 TABLETS ON DAYS 8-9, 2 TABLETS ON DAYS 10-11, AND 1 TABLET DAILY ON DAYS 12-14 SOLD: 05/29/2020 [facility] 5-325 mg 05/29/2020 12:00:00 AM EDT tablet 20 TAKE ONE TO TWO TABLETS BY MOUTH EVERY 4 TO 6 HOURS NEEDED FOR PAIN MAXIMUM DAILY DOSE = 6 TAKE ONE TO TWO TABLETS BY MOUTH EVERY 4 TO 6 HOURS NEEDED FOR PAIN MAXIMUM DAILY DOSE = 6 SOLD: 05/29/2020 [facility] Acetaminophen 325 MG / Hydrocodone Imelda trate 5 MG Oral Tablet HYDROcodone- acetaminophen (NORCO) 5-325 MG per tablet HYDROcodone-acetaminophen (NORCO) 5- 325 MG per tablet 05/29/2020 12:00:00 AM EDT aborted TAKE ONE TO TWO TABLETS BY MOUTH EVERY 4 TO 6 HOURS NEEDED FOR PAIN MAXIMUM DAILY DOSE 6 [facility] mercaptopurine 50 MG Oral Tablet Mercaptopurine 50 MG Oral Tablet (PURINETHOL) Mercaptopurine 50 MG Oral Tablet (PURINETHOL) 05/25/2020 12:00:00 AM EDT 50 mg Oral aborted Take 1 tablet by mouth [facility] 4 mg 04/26/2020 12:00:00 AM EDT tablet 30 TAKE ONE TABLET BY MOUTH EVERY 12 HOURS NEEDED FOR NAUSEA TAKE ONE TABLET BY MOUTH EVERY 12 HOURS NEEDED FOR NAUSEA SOLD: 04/29/2020 [facility] 4 mg 04/26/2020 12:00:00 AM EDT tablet 30 TAKE ONE TABLET BY MOUTH EVERY 12 HOURS NEEDED FOR NAUSEA TAKE ONE TABLET BY MOUTH EVERY 12 HOURS NEEDED FOR NAUSEA SOLD: 05/19/2020 [facility] 25 mg 04/20/2020 12:00:00 AM EDT tablet 30 TAKE ONE TABLET BY MOUTH TWICE A DAY TAKE ONE TABLET BY MOUTH TWICE A DAY SOLD: 07/06/2020 [facility] 25 mg 04/20/2020 12:00:00 AM EDT tablet 30 TAKE ONE TABLET BY MOUTH TWICE A DAY TAKE ONE TABLET BY MOUTH TWICE A DAY SOLD: 06/19/2020 [facility] 25 mg 04/20/2020 12:00:00 AM EDT tablet 30 TAKE ONE TABLET BY MOUTH TWICE A DAY TAKE ONE TABLET BY MOUTH TWICE A DAY SOLD: 06/04/2020 [facility] 25 mg 04/20/2020 12:00:00 AM EDT tablet 30 TAKE ONE TABLET BY MOUTH TWICE A DAY TAKE ONE TABLET BY MOUTH TWICE A DAY SOLD: 04/20/2020 [facility] 25 mg 04/20/2020 12:00:00 AM EDT tablet 30 TAKE ONE TABLET BY MOUTH TWICE A DAY TAKE ONE TABLET BY MOUTH TWICE A DAY SOLD: 05/19/2020 [facility] 25 mg 04/20/2020 12:00:00 AM EDT tablet 30 TAKE ONE TABLET BY MOUTH TWICE A DAY TAKE ONE TABLET BY MOUTH TWICE A DAY SOLD: 05/05/2020 [facility] 420 gram 04/18/2020 12:00:00 AM EDT recon soln 4000 THE DAY PRIOR TO PROCEDURE BETWEEN 2:30 -5 BEGIN DRINKING AN 8 OUNCE GLASS EVERY 10-15 MINUTES UNTIL SOLUTION IS FINSHED THE DAY PRIOR TO PROCEDURE BETWEEN 2:30 -5 BEGIN DRINKING AN 8 OUNCE GLASS EVERY 10-15 MINUTES UNTIL SOLUTION IS FINSHED SOLD: 04/20/2020 [facility] 4 mg 04/15/2020 12:00:00 AM EDT tablet 30 TAKE ONE TABLET BY MOUTH EVERY 12 HOURS NEEDED FOR NAUSEA TAKE ONE TABLET BY MOUTH EVERY 12 HOURS NEEDED FOR NAUSEA SOLD: 05/09/2020 [facility] 250 mg magnesium 03/24/2020 12:00:00 AM EDT tablet 30 TAKE ONE TABLET BY MOUTH EVERY DAY TAKE ONE TABLET BY MOUTH EVERY DAY SOLD: 10/02/2020 [facility] 250 mg magnesium 03/24/2020 12:00:00 AM EDT tablet 30 TAKE ONE TABLET BY MOUTH EVERY DAY TAKE ONE TABLET BY MOUTH EVERY DAY SOLD: 06/26/2020 [facility] 250 mg magnesium 03/24/2020 12:00:00 AM EDT tablet 30 TAKE ONE TABLET BY MOUTH EVERY DAY TAKE ONE TABLET BY MOUTH EVERY DAY SOLD: 09/07/2020 [facility] 250 mg magnesium 03/24/2020 12:00:00 AM EDT tablet 30 TAKE ONE TABLET BY MOUTH EVERY DAY TAKE ONE TABLET BY MOUTH EVERY DAY SOLD: 05/29/2020 [facility] 250 mg magnesium 03/24/2020 12:00:00 AM EDT tablet 30 TAKE ONE TABLET BY MOUTH EVERY DAY TAKE ONE TABLET BY MOUTH EVERY DAY SOLD: 04/29/2020 [facility] 250 mg magnesium 03/24/2020 12:00:00 AM EDT tablet 30 TAKE ONE TABLET BY MOUTH EVERY DAY TAKE ONE TABLET BY MOUTH EVERY DAY SOLD: 07/27/2020 [facility] Cyclobenzaprine hydrochloride 10 MG Oral Tablet Cyclobenzapr ine HCL 03/06/2020 12:00:00 AM EDT ORAL completed [facility] ([facility] Cyclobenzaprine hydrochloride 10 MG Oral Tablet cyclobenzaprine (FLEXERIL) 10 MG tablet cyclobenzaprine (FLEXERIL) 10 MG tablet 03/06/2020 12:00:00 AM EDT aborted TAKE ONE TABLET BY M OUTH THREE TIMES A DAY NEEDED [facility] 25 mg 02/28/2020 12:00:00 AM EDT tablet 90 TAKE ONE TABLET BY MOUTH EVERY DAY TAKE ONE TABLET BY MOUTH EVERY DAY SOLD: 08/20/2020 [facility] atorvastatin 10 MG Oral Tablet ATORVASTATIN CALCIUM 02/28/2020 1 2:00:00 AM EDT tablet 90 TAKE ONE TABLET BY MOUTH EVERY D AY TAKE ONE TABLET BY MOUTH EVERY DAY SOLD: 06/01/2020 [facility] 300 mg 02/28/2020 12:00:00 AM EDT capsule 270 TAKE ONE CAPSULE BY MOUTH THREE TIMES A DAY TAKE ONE CAPSULE BY MOUTH THREE TIMES A DAY SOLD: 08/20/2020 [facility] 25 mg 02/28/2020 12:00:00 AM EDT tablet 90 TAKE ONE TABLET BY MOUTH EVERY DAY TAKE ONE TABLET BY MOUTH EVERY DAY SOLD: 11/13/2020 [facility] Metformin hydrochloride 1000 MG Oral Tablet 1,000 mg METFORM IN HCL 02/28/2020 12:00:00 AM EDT tablet 180 TAKE ONE TABLET BY MOUTH TWICE A DAY WITH MEALS FOR DIABETES TAKE ONE TABLET BY MOUTH TWICE A DAY WITH MEALS FOR DI ABETES SOLD: 11/17/2020 [facility] 2.5 mg 02/28/2020 12:00:00 AM EDT tablet 90 TAKE ONE TABLET BY MOUTH EVERY DAY TAKE ONE TABLET BY MOUTH EVERY DAY SOLD: 08/20/2020 [facility] pantoprazole 40 MG Delayed Release Oral Tablet PANTOPRAZOLE SODIUM 02/28/2020 12:00:00 AM EDT tablet,delayed release (DR/EC) 90 T NAMITA ONE TABLET BY MOUTH EVERY DAY TAKE ONE TABLET BY MOUTH EVERY DAY SOLD: 11/13/2020 [facility] 300 mg 02/28/2020 12:00:00 AM EDT capsule 270 TAKE ONE CAPSULE BY MOUTH THREE TIMES A DAY TAKE ONE CAPSULE BY MOUTH THREE TIMES A DAY SOLD: 06/01/2020 [facility] 20 mg 02/28/2020 12:00:00 AM EDT tablet 90 TAKE ONE TABLET BY MOUTH EVERY DAY TAKE ONE TABLET BY MOUTH EVERY DAY SOLD: 07/20/2020 [facility] pantoprazole 40 MG Delayed Release Oral Tablet PANTOPRAZOLE SODIUM 02/28/2020 12:00:00 AM EDT tablet,delayed release (DR/EC) 90 T NAMITA ONE TABLET BY MOUTH EVERY DAY TAKE ONE TABLET BY MOUTH EVERY DAY SOLD: 08/20/2020 [facility] 2.5 mg 02/28/2020 12:00:00 AM EDT tablet 90 TAKE ONE TABLET BY MOUTH EVERY DAY TAKE ONE TABLET BY MOUTH EVERY DAY SOLD: 06/01/2020 [facility] Metformin hydrochloride 1000 MG Oral Tablet 1,000 mg METFORM IN HCL 02/28/2020 12:00:00 AM EDT tablet 180 TAKE ONE TABLET BY MOUTH TWICE A DAY WITH MEALS FOR DIABETES TAKE ONE TABLET BY MOUTH TWICE A DAY WITH MEALS FOR DI ABETES SOLD: 08/20/2020 [facility] pantoprazole 40 MG Delayed Release Oral Tablet PANTOPRAZOLE SODIUM 02/28/2020 12:00:00 AM EDT tablet,delayed release (DR/EC) 90 T NAMITA ONE TABLET BY MOUTH EVERY DAY TAKE ONE TABLET BY MOUTH EVERY DAY SOLD: 06/01/2020 [facility] Metformin hydrochloride 1000 MG Oral Tablet 1,000 mg METFORM IN HCL 02/28/2020 12:00:00 AM EDT tablet 180 TAKE ONE TABLET BY MOUTH TWICE A DAY WITH MEALS FOR DIABETES TAKE ONE TABLET BY MOUTH TWICE A DAY WITH MEALS FOR DI ABETES SOLD: 06/01/2020 [facility] 300 mg 02/28/2020 12:00:00 AM EDT capsule 270 TAKE ONE CAPSULE BY MOUTH THREE TIMES A DAY TAKE ONE CAPSULE BY MOUTH THREE TIMES A DAY SOLD: 11/13/2020 [facility] 25 mg 02/28/2020 12:00:00 AM EDT tablet 90 TAKE ONE TABLET BY MOUTH EVERY DAY TAKE ONE TABLET BY MOUTH EVERY DAY SOLD: 06/01/2020 [facility] atorvastatin 10 MG Oral Tablet ATORVASTATIN CALCIUM 02/28/2020 1 2:00:00 AM EDT tablet 90 TAKE ONE TABLET BY MOUTH EVERY D AY TAKE ONE TABLET BY MOUTH EVERY DAY SOLD: 08/20/2020 [facility] Amlodipine 2.5 MG Oral Tablet AMLODIPINE BESYLATE 02/28/2020 12: 00:00 AM EDT tablet 90 TAKE ONE TABLET BY MOUTH EVERY D AY TAKE ONE TABLET BY MOUTH EVERY DAY SOLD: 11/13/2020 [facility] atorvastatin 10 MG Oral Tablet ATORVASTATIN CALCIUM 02/28/2020 1 2:00:00 AM EDT tablet 90 TAKE ONE TABLET BY MOUTH EVERY D AY TAKE ONE TABLET BY MOUTH EVERY DAY SOLD: 11/13/2020 [facility] Metformin hydrochloride 1000 MG Oral Tab let metFORMIN (GLUCOPHAGE) 1000 MG tablet metFORMIN (GLUCOPHAGE) 1000 MG tablet 02/27/2020 12:00:00 AM EDT 1 {tbl} Oral aborted Take 1 tab let by mouth 2 (two) times a day with meals [facility] BLOOD SUGAR DIAGNOSTIC 02/24/2020 12:00:00 AM EDT strip 300 CHECK BLOOD SUGAR THREE TIMES A DAY CHECK BLOOD SUGAR THREE TIMES A DAY SOLD: 08/24/2020 [facility] BLOOD SUGAR DIAGNOSTIC 02/24/2020 12:00:00 AM EDT strip 300 CHECK BLOOD SUGAR THREE TIMES A DAY CHECK BLOOD SUGAR THREE TIMES A DAY SOLD: 06/18/2020 [facility] 20 mg 02/03/2020 12:00:00 AM EDT tablet 90 TAKE ONE TABLET BY MOUTH EVERY DAY TAKE ONE TABLET BY MOUTH EVERY DAY SOLD: 05/09/2020 [email or web address] Enalapril Maleate 20 MG Oral Tablet enalapril (VASOTEC ) 20 MG tablet enalapril (VASOTEC) 20 MG tablet 02/02/2020 12:00:00 AM EDT 20 mg Oral aborted Type 2 diabetes mellitus without complication, unspecified whether snf insulin useHypertension, unspecified type Take 1 tablet (20 mg total ) by mouth daily [facility] Type 2 diabetes mellitus without complic ation, unspecified whether snf insulin use Hypertension, unspecified type BLOOD SUGAR DIAGNOSTIC 01/31/2020 12:00:00 AM EDT strip 100 USE TO CHECK BLOOD SUGAR THREE TIMES A DAY USE TO CHECK BLOOD SUGAR THREE TIMES A DAY SOLD: 05/05/2020 [email or web address] BLOOD SUGAR DIAGNOSTIC 08/07/2019 12:00:00 AM EST strip 100 DIRECTED TO CHECK BLOOD SUGAR DAILY DIRECTED TO CHECK BLOOD SUGAR DAILY SOLD: 05/29/2020 [email or web address] Insurance Providers Payer name Policy type / Coverage type Policy ID Covered constitution party ID Covered constitution party's relationship to betts Policy Betts Plan Information BCBS [place] ETHANN PPO 302/307 [id number] SP [id number] [facility] COMMUNITY PLAN MCDO [id number] SP [id number] [facility] COMMUNITY PLAN MCDO [id number] SP [id number] [facility] COMMUNITY PLAN MCDHMO [id number] SP [id number] [facility] COMMUNITY PLAN MCDO [id number] SP [id number] [facility] MEDICARE [id number] Lilian [id number] [facility] MEDICARE [id number] xxxxxxxxx [id number] [facility] MEDICARE [id number] Lilian [id number] UHC UNITED MEDICARE COMPLETE G [id number] Self [id number] [employer] [id number] Self [id number] [place] Medicare Part B [id number] Self [id number] ANSI-Medicaid [id number] Medicaid [place] Medigap Part B [id number] .[id number] Self [id number] [facility] Health Maintenance Organization (HMO) [id number] Self [id number] [facility] COMMUNITY PLAN [facility] [id number] SP [id number] Medicaid [place] Medigap Part B [id number] .[id number] Self [id number] [facility] Health Maintenance Organization (HMO) [id number] Self [id number] [facility] Community Plan Commercial [id number] 2.16840.1.855483.3.22 7.99.2809.72749.0 Self [id number] Medicaid [place] Medigap Part B [id number] 2.16.840.1.503895.3.227.99 .8646.12841.0 Self [id number] [facility] Health Maintenance Organization (HMO) [id number] 2.16840.1.088000.3.227.99.8646.31574.0 Self [id number] [facility] Community Plan Commercial [id number] 2.16840.1.428969.3.22 7.99.[address]9.[address]442.[id number] [facility] [id number] S [id number] Medicaid [place] Medigap Part B [id number] 2.16.840.1.911175.3.227.99 .8646.60306.0 Self [id number] [facility] Health Maintenance Organization (HMO) [id number] 2.16.840.1.890555.3.227.99.8646.84245.0 Self [id number] [facility] Community Plan Commercial [id number] 2.16840.1.292844.3.22 7.99.2809.95062.0 Self [id number] [facility] Health Maintenance Organization (O) [id number] 2.16.840.1.438031.3.227.99.1767.85810.0 Self [id number] Medicaid [place] Medigap Part B [id number] 2.16.840.1.227797.3.227.99 .8646.76445.0 Self [id number] [facility] Health Maintenance Organization (O) [id number] 2.16.840.1.930120.3.227.99.8646.34794.0 Self [id number] [facility] Community [facility] Commercial [id number] 2.16.840.1.585104.3.22 7.99.2809.04628.0 Self [id number] [facility] Commercial [id number] 2.16840.1.797353.3.22 7.99.2809.86726.0 Self [id number] Medicaid [place] Medigap Part B [id number] 2.16.840.1.083889.3.227.99 .8646.73516.0 Self [id number] [facility] Health Maintenance Organization (O) [id number] 2.16840.1.981086.3.227.99.8646.62954.0 Self [id number] [facility] Community Plan Commercial [id number] 2.16840.1.922831.3.22 7.99.2809.99649.0 Self [id number] MEDICAID M [id number] S [id number] [place] Medig[place] Part [place] [id number] 2.16.840.1.939427.3.227.99 .8646.56294.0 Self [id number] [facility] Health Maintenance Organization (O) [id number] 2.16.840.1.640717.3.227.99.8646.86256.0 Self [id number] [facility] Community Plan Commercial [id number] 2.16.840.1.481960.3.22 7.99.2809.28144.0 Self [id number] Medicaid [place] Medigap Part [place] [id number] 2.16.840.1.747674.3.227.99 .8646.11961.0 Self [id number] [facility] Health Maintenance Organization (O) [id number] 2.16840.1.476312.3.227.99.8646.71065.0 Self [id number] [facility] Community [facility] Commercial [id number] 2.16.840.1.174720.3.22 7.99.2809.47833.0 Self [id number] [place] Medigap Part [place] [id number] 2.16840.1.947604.3.227.99 .8646.24706.0 Self [id number] [facility] Health Maintenance Organization (O) [id number] 2.16840.1.604227.3.227.99.8646.60125.0 Self [id number] [place] Med[place] Part [place] [id number] 2.16840.1.040604.3.227.99 .8646.98582.0 Self [id number] [facility] Health Maintenance Organization (O) [id number] 2.16840.1.398736.3.227.99.8646.68325.0 Self [id number] [facility] Health Maintenance Organization (HMO) [id number] 2.16840.1.369994.3.227.99.1767.66183.0 Self [id number] Medicaid [place] Medigap Part [place] [id number] 2.16840.1.781089.3.227.99 .8646.40469.0 Self [id number] [facility] Health Maintenance Organization (O) [id number] 2.16840.1.046740.3.227.99.8646.85279.0 Self [id number] Medicaid [place] Medigap Part [place] [id number] 2.16840.1.352400.3.227.99 .8646.02766.0 Self [id number] [facility] Health Maintenance Organization (O) [id number] 2.16840.1.809553.3.227.99.8646.08293.0 Self [id number] [facility] Community Plan Commercial [id number] 2.16840.1.796894.3.22 7.99.2809.72672.0 Self [id number] [facility] Health Maintenance Organization (O) [id number] 2.16840.1.279550.3.227.99.1767.64549.0 Self [id number] [facility] Health Maintenance Organization (O) [id number] 2.16840.1.385865.3.227.99.1767.32224.0 Self [id number] [place] Medigap Part B [id number] 2.840.1.237381.3.227.99 .8646.58786.0 Self [id number] [facility] Health Maintenance Organization (O) [id number] 2.840.1.235916.3.227.99.8646.74484.0 Self [id number] [facility] Community Plan Commercial [id number] 2.16840.1.644323.3.22 7.99.2809.88937.0 Self [id number] [place] Medig[place] Part [place] [id number] 2.16840.1.192835.3.227.99 .8646.44865.0 Self [id number] [facility] Health Maintenance Organization (O) [id number] 2.16840.1.298413.3.227.99.8646.01870.0 Self [id number] [employer] COMMUNITY PLAN MCDO [id number] SP [id number] [employer] COMMUNITY PLAN MCDO [id number] SP [id number] [place] Medigap Part B [id number] 2.16840.1.887218.3.227.99 .8646.56178.0 Self [id number] [facility] Health Maintenance Organization (HMO) [id number] 2.16.840.1.553429.3.227.99.8646.87621.0 Self [id number] [place] Medigap Part B [id number] 2.16.840.1.070342.3.227.99 .8646.49191.0 Self [id number] [facility] Health Maintenance Organization (HMO) [id number] 2.16.840.1.376568.3.227.99.8646.42255.0 Self [id number] MEDICAID [id number] SP [id number] Medicaid [place] Medicaid [id number] Self BS [facility] Health Maintenance Organization (HMO) [id number] Self [facility] [id number] SP [id number] MEDICAID MEDICAID [id number] Self [place] MEDICAID [employer] COMMUNITY PLAN [facility] [id number] SP [id number] Medicaid [place] Medicaid [id number] Self UNITED HEALTHCARE(MCAID) O [id number] S [id number] [facility] Community Plan Commercial [id number] Self UNITED HEALTHCARE(MCAID) O [id number] S [id number] SELF PAY ONLY UNAVAILABLE SP UNAV AILABLE Medicaid [place] Medicaid [id number] 0 Self MEDICARE COMPLETE [id number] SP [id number] MEDICARE COMPLETE-[facility] O [id number] S [id number] MEDICARE [id number] SP [id number] [facility] Medicare Commercial [id number] Self [id number] [facility] [id number] SP [id number] [facility] Medicare Commercial [id number] Self [id number] MEDICARE COMPLETE [id number] SP [id number] ANSI-Medicare Part B [id number] [facility]-Medicaid [id number] [facility]-Medicare Part B [id number] Problems, Conditions, and Diagnoses Code Display Name Description Problem Type Effective Dates Data Source(s) K50.90 Crohn's disease, unspecified, without co mplications Crohn's disease, unspecified, without co Diagnosis 12/27/2020 09:20:56 AM EDT [facility] E11.9 Type 2 diabetes mellitus without complic ations Type 2 diabetes mellitus without complic Diagnosis 12/27/2020 09:20:56 AM EDT [facility] R06.02 Shortness of breath Shortness of breath Diagnosis 0 12/27/2020 09:20:56 AM EDT [facility] I10 Essential (primary) hypertension Essential (primary) h ypertension Diagnosis 12/27/2020 09:20:56 AM EDT [facility] K21.9 Gastro-esophageal reflux disease without esophagitis Gastro-esophageal reflux disease without Diagnosis 12/27/2020 09:20:56 AM EDT [facility] R07.9 Chest pain, unspecified Chest pain, unspecified Diagno sis 12/27/2020 09:20:56 AM EDT [facility] M19.90 Unspecified osteoarthritis, unspecified site Unspecified osteoarthritis, unspecified Diagnosis 12/27/2020 09:20:56 AM EDT [facility] E78.2 Mixed hyperlipidemia Mixed hyperlipidemia Diagnosis 12/27/2020 09:20:56 AM EDT [facility] K57.30 Diverticulosis of large inte jessica without perforation or abscess without bleeding Diverticulosis of large intestine withou t perforation or abscess without bleeding Diagnosis 05/24/2020 02:16:00 PM EDT [facility] K50.00 Crohn's disease of small intestine witho ut complications Crohn's disease of small intestine without complications Diagnosis 05/24/2020 02:16:00 PM [facility] D12.5 Benign neoplasm of sigmoid colon Benign neoplasm of sigmoid colon Diagnosis 05/24/2020 02:16:00 PM [facility] D12.3 Benign neoplasm of transverse colon Benign neopl asm of transverse colon Diagnosis 05/24/2020 02:16:00 PM [facility] K64.1 Second degree hemorrhoids Second degree hemorrhoids Di agnosis 05/24/2020 02:16:00 PM [facility] D50.9 Iron deficiency anemia Iron deficiency anemia Problem 03/07/2021 12:00:00 AM EDT [facility] ([facility] K50.918 Crohn's disease Crohn's disease Problem 03/07/2021 12:0 0:00 AM EDT [facility] ([facility] E78.5 Hyperlipidemia Hyperlipidemia Problem 03/07/2021 12:00: 00 AM EDT [facility] ([facility] I10 Essential hypertension Essential hypertension Problem 03/07/2021 12:00:00 AM EDT [facility] ([facility] Surgeries/Procedures Procedure Description Date Indications Data Source(s) OFFICE OUTPATIENT VISIT 25 MINUTES 06/06/2021 12:00:00 AM EDT [facility] ([facility] OFFICE OUTPATIENT VISIT 25 MINUTES 06/06/2021 12:00:00 AM EDT [facility] ([facility], ) Mammogram 05/23/2021 12:00:00 AM EDT [facility] ([facility] [place] W/I 7 Days Of DC, Comm W/I 2 Dys 05/15/2021 12:00:00 AM EDT [facility] ([facility] OFFICE OUTPATIENT VISIT 25 MINUTES 04/10/2021 12:00:00 AM EDT [facility] ([facility], ) Diabetic Foot Exam 03/07/2021 12:00:00 AM EDT [facility] ([facility] OFFICE OUTPATIENT VISIT 25 MINUTES 03/07/2021 12:00:00 AM EDT [facility] ([facility] OFFICE OUTPATIENT VISIT 25 MINUTES 03/07/2021 12:00:00 AM EDT [facility] ([facility], ) LIPID PANEL <td>LIPID PANEL</td><td>Rout ine</td><td>12/27/2020 4:22 PM EDT</td><td> Mixed hyperlipidemia Hypertension, unspecified type Shortness of breath</td><td> </td> 12/27/2020 04:22:00 PM EDT Shortness of breathHypertension, unspecified typeMixed hyperlipidemia [facility] Shortness of breath Hypertension, unspecified type Mixed hyperlipidemia COMPREHENSIVE METABOLIC PANEL <td>COMPREHENSIVE METABO LIC PANEL</td><td>Routine</td><td>12/27/2020 4:22 PM EDT</td><td> Hypertension, unspecified type Shortness of breath</td><td> </td> 12/27/2020 04:22:00 PM EDT Shortness of breathHypertension, unspecified type [facility] Shortness of breath Hypertension, unspecified type OFFICE OUTPATIENT VISIT 25 MINUTES 09/13/2020 12:00:00 AM EST [facility] ([facility], ) Colonoscopy 05/24/2020 12:00:00 AM EDT [facility] ([facility] no polyps, repeat 2020 Document: 7 - Colonoscopy Screening colonoscopy (procedure) <td>COLONOSCOPY</td> <td></td><td>05/24/2020 12:00 AM EDT</td><td></td><td></td> 05/24/2020 12:00:00 AM EDT [facility] LIPID PANEL <td>LIPID PANEL</td><td>Rout ine</td><td>04/26/2020</td><td></td><td> </td> 04/26/2020 12:00:00 AM EDT [facility] Mammogram 04/21/2020 12:00:00 AM EDT [facility] ([facility] Xray: 11/07/17 - Breast, Mammography, Bi lateral Results ID Date Data Source [id number] 06/08/2021 03:41:00 PM EDT [facility] ([facility] Name Value Range Interpretation Code Description Data Ana M rce(s) Supporting Document(s) White Blood Count 6.6 10 4.0-10.0 [facility] ([facility] Red Blood Count 3.49 10 4.00-5.40 [facility] ([facility] Hemoglobin 10.7 g/dL 12.0-15.5 [facility] Hematocrit 33.6 % 36.0-47.0 [facility] Mean Corpuscular Volume 96.3 fl 80.0-96.0 M [facility] ([facility] Mean Corpuscular Hemoglobin 30.7 pg 27.0-33.0 [facility] ([facility] Mean Corpuscular HGB Conc 31.8 g/dL 32.0-36.5 [facility] ([facility] Red Cell Distribution Width 15.5 % 11.5-14.5 [facility] ([facility] Platelet Count, Automated 240 10 150-450 [facility] Neutrophils % 71.4 % 36.0-66.0 [facility] Lymph % 17.4 % 24.0-44.0 [facility] Dent % 8.9 % 2.0-8.0 [facility] Eos % 1.1 % 0.0-3.0 [facility] Baso % 0.6 % 0.0-1.0 [facility] Nucleated Red Blood Cell % 0.0 % 0-0 [facility] ([facility] Neutrophils # 4.7 10 1.5-8.5 [facility] ([facility] Immature Granulocyte % 0.6 % 0-3.0 [facility] ([facility] Dent # 0.6 10 0.0-0.8 [facility] ([facility] Lymph # 1.1 10 1.5-5.0 [facility] Baso # 0.0 10 0.0-0.2 [facility] Eos # 0.1 10 0.0-0.5 [facility] ID Date Data Source [id number] 06/08/2021 03:41:00 PM EDT [facility] ([facility] Name Value Range Interpretation Code Description Data Ana M rce(s) Supporting Document(s) Glucose, Fasting 128 mg/dL 70-100 [facility] ([facility] Blood Urea Nitrogen 11 mg/dL 7-18 [facility] ([facility] Creatinine For GFR 0.93 mg/dL 0.55-1.30 [facility] ([facility] Glomerular Filtration Rate Laboratory test result [facility] ([facility] <content>Units are mL/min/1.73 m2</content>
<content></content>
<content>Chronic Kidney Disease Staging per NKF:</content>
<content></content>
<content>Stage I & II GFR >=60 Normal to Mildly Decreased</content>
<content>Stage III GFR 30- 59 Moderately Decreased</content>
<content>Stage IV GFR 15-29 Severely Decreased</content>
<content>Stage V GFR <15 Very Little GFR Left</content>
<content>ESRD GFR <15 on MICROFILM OPERATOR</content>
<content></content> Sodium Level 140 meq/L 136-145 [facility] ([facility] Potassium Serum 4.3 meq/L 3.5-5.1 [facility] ([facility] Chloride Level 102 meq/L 98-107 [facility] Carbon Dioxide Level 33 meq/L 21-32 [facility] ([facility] Anion Gap 5 meq/L 8-16 [facility] Calcium Level 9.0 mg/dL 8.8-10.2 [facility] Ast/Sgot 29 U/L 7-37 [facility] Alt/SGPT 31 U/L 12-78 [facility] Alkaline Phosphatase 80 U/L 45-117 [facility] ([facility] Bilirubin,Total 0.7 mg/dL 0.2-1.0 [facility] ([facility] Total Protein 6.4 GM/DL 6.4-8.2 [facility] Albumin 3.4 GM/DL 3.2-5.2 [facility] Albumin/Globulin Ratio 1.1 1.2-2.2 [facility] ([facility] ID Date Data Source [id number] 06/08/2021 03:41:00 PM EDT [facility] ([facility] Name Value Range Interpretation Code Description Data Ana M rce(s) Supporting Document(s) Erythrocyte sedimentation rate by 2H Westergren method 16 mm/hr 0-3 0 [facility] ID Date Data Source [id number] 05/23/2021 01:16:00 PM EDT [facility] ([facility] Name Value Range Interpretation Code Description Data Ana M rce(s) Supporting Document(s) Glucose, Fasting 117 mg/dL 70-100 [facility] ([facility] Blood Urea Nitrogen 17 mg/dL 7-18 [facility] ([facility] Sodium Level 138 meq/L 136-145 [facility] Glomerular Filtration Rate Laboratory test result [facility] ([facility] <content>Units are mL/min/1.73 m2</content>
<content></content>
<content>Chronic Kidney Disease Staging per NKF:</content>
<content></content>
<content>Stage I & II GFR >=60 Normal to Mildly Decreased</content>
<content>Stage III GFR 30- 59 Moderately Decreased</content>
<content>Stage IV GFR 15-29 Severely Decreased</content>
<content>Stage V GFR <15 Very Little GFR Left</content>
<content>ESRD GFR <15 on MICROFILM OPERATOR</content>
<content></content> Creatinine For GFR 0.80 mg/dL 0.55-1.30 [facility] ([facility] Potassium Serum 4.8 meq/L 3.5-5.1 [facility] ([facility] Chloride Level 102 meq/L 98-107 [facility] Anion Gap 5 meq/L 8-16 [facility] Calcium Level 9.8 mg/dL 8.8-10.2 [facility] Carbon Dioxide Level 31 meq/L 21-32 [facility] ([facility] Alt/SGPT 27 U/L 12-78 [facility] Ast/Sgot 22 U/L 7-37 [facility] Alkaline Phosphatase 67 U/L 45-117 [facility] Bilirubin,Total 0.7 mg/dL 0.2-1.0 [facility] Total Protein 6.2 GM/DL 6.4-8.2 [facility] Albumin 3.4 GM/DL 3.2-5.2 [facility] Albumin/Globulin Ratio 1.2 1.2-2.2 [facility] ID Date Data Source [id number] 05/23/2021 01:16:00 PM EDT [facility] ([facility] Name Value Range Interpretation Code Description Data Ana M rce(s) Supporting Document(s) White Blood Count 5.9 10 4.0-10.0 [facility] Red Blood Count 3.26 10 4.00-5.40 [facility] Hemoglobin 10.1 g/dL 12.0-15.5 [facility] Mean Corpuscular Volume 93.9 fl 80.0-96.0 M [facility] ([facility] Hematocrit 30.6 % 36.0-47.0 [facility] Mean Corpuscular Hemoglobin 31.0 pg 27.0-33.0 [facility] Red Cell Distribution Width 16.2 % 11.5-14.5 [facility] Mean Corpuscular HGB Conc 33.0 g/dL 32.0-36.5 [facility] Neutrophils % 76.4 % 36.0-66.0 [facility] Platelet Count, Automated 304 10 150-450 [facility] Lymph % 14.2 % 24.0-44.0 [facility] Dent % 7.4 % 2.0-8.0 [facility] Eos % 0.8 % 0.0-3.0 [facility] Baso % 0.5 % 0.0-1.0 [facility] Immature Granulocyte % 0.7 % 0-3.0 [facility] Nucleated Red Blood Cell % 0.0 % 0-0 [facility] ([facility] Neutrophils # 4.5 10 1.5-8.5 [facility] ([facility] Lymph # 0.8 10 1.5-5.0 [facility] ([facility] Dent # 0.4 10 0.0-0.8 [facility] ([facility] Eos # 0.1 10 0.0-0.5 [facility] ([facility] Baso # 0.0 10 0.0-0.2 [facility] ([facility] ID Date Data Source [id number] 05/23/2021 01:16:00 PM EDT [facility] ([facility] Name Value Range Interpretation Code Description Data Ana M rce(s) Supporting Document(s) Hemoglobin A1c/Hemoglobin.total in Blood 6.1 % [facility] ([facility] <content>REFERENCE RANGES:</content><br/ ><content></content>
<content><=5.6% NORMAL</content>
<content>5.7-6.4% SUGGESTS IMPAIRED GLUCOSE METABOLISM/PREDIABETIC</content>
<content>>= 6.5% ABNORMAL</content>
<content></content> Estimated Average Glucose 128 mg/dL 60-110 [facility] ([facility] ID Date Data Source [id number] 05/23/2021 01:15:00 PM EDT [facility] ([facility]) Name Value Range Interpretation Code Description Data Ana M rce(s) Supporting Document(s) Glucose, Fasting 119 mg/dL 70-100 Above high normal M [facility] ([facility]) Creatinine For GFR 0.80 mg/dL 0.55-1.30 Normal (applies to non -numeric results) [facility] ([facility]) Blood Urea Nitrogen 18 mg/dL 7-18 Normal (applies to non-nume lionel results) [facility] ([facility]) Glomerular Filtration Rate Laboratory test result Normal (applies to non- numeric results) [facility]) <content>Units are mL/min/1.73 m2</content>
<content></content>
<content>Chronic Kidney Disease Staging per [facility]:</content>
<content></content>
<content>Stage I & II GFR >=60 Normal to Mildly Decreased</content>
<content>Stage III GFR 30- 59 Moderately Decreased</content>
<content>Stage IV GFR 15-29 Severely Decreased</content>
<content>Stage V GFR <15 Very Little GFR Left</content>
<content>ESRD GFR <15 on MICROFILM OPERATOR</content>
<content></content> Sodium Level 138 meq/L 136-145 Normal (applies to non-numeric res ults) [facility] ([facility]) Potassium Serum 4.8 meq/L 3.5-5.1 Normal (applies to non-numeric results) [facility] ([facility]) Chloride Level 102 meq/L 98-107 Normal (applies to non-numeric r esults) [facility]) Carbon Dioxide Level 31 meq/L 21-32 Normal (applies to non-num lorenzo results) [facility]) Anion Gap 5 meq/L 8-16 Below low normal [facility] ( [facility]) Ast/Sgot 20 U/L 7-37 Normal (applies to non-numeric resul ts) [facility]) Calcium Level 9.7 mg/dL 8.8-10.2 Normal (applies to non-numeric re sults) [facility] ([facility]) Alt/SGPT 26 U/L 12-78 Normal (applies to non-numeric resul ts) [facility]) Alkaline Phosphatase 66 U/L 45-117 Normal (applies to non-num lorenzo results) [facility] ([facility]) Total Protein 6.3 GM/DL 6.4-8.2 Below low normal [facility] ([facility]) Bilirubin,Total 0.6 mg/dL 0.2-1.0 Normal (applies to non-numeric results) [facility] ([facility]) Albumin 3.4 GM/DL 3.2-5.2 Normal (applies to non-numeric resul ts) [facility] ([facility]) Albumin/Globulin Ratio 1.2 1.2-2.2 Normal (applies to non-n umeric results) [facility]) ID Date Data Source [id number] 05/23/2021 01:15:00 PM EDT [facility] ([facility]) Name Value Range Interpretation Code Description Data Ana M rce(s) Supporting Document(s) White Blood Count 5.8 10 4.0-10.0 Normal (applies to non-numeri c results) [facility] ([facility]) Red Blood Count 3.26 10 4.00-5.40 Below low normal [facility] ([facility]) Hemoglobin 10.1 g/dL 12.0-15.5 Below low normal [facility] ( [facility]) Hematocrit 30.7 % 36.0-47.0 Below low normal [facility] ( [facility]) Mean Corpuscular Volume 94.2 fl 80.0-96.0 Normal ( applies to non-numeric results) [facility] ([facility]) Mean Corpuscular Hemoglobin 31.0 pg 27.0-33.0 Norm al (applies to non-numeric results) [facility] ([facility], ) Mean Corpuscular HGB Conc 32.9 g/dL 32.0-36.5 Normal (applies to non-numeric results) [facility] ([facility]) Platelet Count, Automated 304 10 150-450 Normal (applies to non-numeric results) [facility] ([facility]) Red Cell Distribution Width 16.0 % 11.5-14.5 Above high normal [facility] ([facility]) Dent % 7.8 % 2.0-8.0 Normal (applies to non-numeric resul ts) [facility] ([facility]) Neutrophils % 75.2 % 36.0-66.0 Above high normal [facility] ([facility]) Lymph % 14.7 % 24.0-44.0 Below low normal [facility] ( [facility]) Eos % 0.7 % 0.0-3.0 Normal (applies to non-numeric resul ts) [facility] ([facility]) Baso % 0.7 % 0.0-1.0 Normal (applies to non-numeric resul ts) [facility] ([facility]) Immature Granulocyte % 0.9 % 0-3.0 Normal (applies to non-n umeric results) [facility]) Nucleated Red Blood Cell % 0.0 % 0-0 Normal (applies to n on-numeric results) [facility] ([facility]) Dent # 0.5 10 0.0-0.8 Normal (applies to non-numeric resul ts) [facility] ([facility]) Lymph # 0.9 10 1.5-5.0 Below low normal [facility] ( [facility]) Neutrophils # 4.3 10 1.5-8.5 Normal (applies to non-numeric re sults) [facility] ([facility]) Eos # 0.0 10 0.0-0.5 Normal (applies to non-numeric resul ts) [facility] ([facility]) Baso # 0.0 10 0.0-0.2 Normal (applies to non-numeric resul ts) [facility] ([facility]) ID Date Data Source [id number] 05/23/2021 01:15:00 PM EDT [facility]) Name Value Range Interpretation Code Description Data Ana M rce(s) Supporting Document(s) Vitamin B12 Level 643 pg/mL Normal (applies to non-numeri c results) [facility] ([facility]) VITAMIN B12 NORMAL RANGE NORMAL 247 - 911 PG/ML INDETERMINATE 211 - 246 PG/ML DEFICIENT LESS THAN 211 PG/ML Folate 17.2 ng/mL Normal (applies to non-numeric resul ts) [facility] ([facility]) FOLATE NORMAL RANGE NORMAL GREATER THAN 5.4 NG/ML INDETERMINATE 3.4-5.4 NG/ML DEFICIENT LESS THAN 3.4 NG/ML ID Date Data Source [id number] 05/23/2021 01:15:00 PM EDT [facility] ([facility]) Name Value Range Interpretation Code Description Data Ana M rce(s) Supporting Document(s) Iron (Fe) 54 ug/dL 50-170 Normal (applies to non-numeric resul ts) [facility] ([facility]) Total Iron Binding Capacity 403 ug/dL 250-450 Norm al (applies to non-numeric results) [facility] ([facility]) Percent Saturation 13.4 % 13.2-45.0 Normal (applies to non-numer ic results) [facility] ([facility]) ID Date Data Source [id number] 05/23/2021 01:15:00 PM EDT [facility] ([facility] Name Value Range Interpretation Code Description Data Ana M rce(s) Supporting Document(s) White Blood Count 5.8 10 4.0-10.0 [facility] ([facility] Red Blood Count 3.26 10 4.00-5.40 [facility] ([facility] Mean Corpuscular Volume 94.2 fl 80.0-96.0 M [facility] ([facility] Hemoglobin 10.1 g/dL 12.0-15.5 [facility] ([facility] Hematocrit 30.7 % 36.0-47.0 [facility] Mean Corpuscular Hemoglobin 31.0 pg 27.0-33.0 [facility] ([facility] Mean Corpuscular HGB Conc 32.9 g/dL 32.0-36.5 [facility] ([facility] Red Cell Distribution Width 16.0 % 11.5-14.5 [facility] ([facility] Platelet Count, Automated 304 10 150-450 [facility] ([facility] Neutrophils % 75.2 % 36.0-66.0 [facility] ([facility] Eos % 0.7 % 0.0-3.0 [facility] ([facility] Dent % 7.8 % 2.0-8.0 [facility] ([facility] Lymph % 14.7 % 24.0-44.0 [facility] ([facility] Baso % 0.7 % 0.0-1.0 [facility] ([facility] Immature Granulocyte % 0.9 % 0-3.0 [facility] ([facility] Nucleated Red Blood Cell % 0.0 % 0-0 [facility] ([facility] Neutrophils # 4.3 10 1.5-8.5 [facility] ([facility] Lymph # 0.9 10 1.5-5.0 [facility] ([facility] Baso # 0.0 10 0.0-0.2 [facility] ([facility] Eos # 0.0 10 0.0-0.5 [facility] ([facility] Dent # 0.5 10 0.0-0.8 [facility] ([facility] ID Date Data Source [id number] 05/23/2021 01:15:00 PM EDT [facility] ([facility] Name Value Range Interpretation Code Description Data Ana M rce(s) Supporting Document(s) Creatinine For GFR 0.80 mg/dL 0.55-1.30 [facility] ([facility] Glucose, Fasting 119 mg/dL 70-100 [facility] ([facility] Blood Urea Nitrogen 18 mg/dL 7-18 [facility] ([facility] Glomerular Filtration Rate Laboratory test result [facility] ([facility] <content>Units are mL/min/1.73 m2</content>
<content></content>
<content>Chronic Kidney Disease Staging per NKF:</content>
<content></content>
<content>Stage I & II GFR >=60 Normal to Mildly Decreased</content>
<content>Stage III GFR 30- 59 Moderately Decreased</content>
<content>Stage IV GFR 15-29 Severely Decreased</content>
<content>Stage V GFR <15 Very Little GFR Left</content>
<content>ESRD GFR <15 on MICROFILM OPERATOR</content>
<content></content> Sodium Level 138 meq/L 136-145 [facility] ([facility] Potassium Serum 4.8 meq/L 3.5-5.1 [facility] ([facility] Carbon Dioxide Level 31 meq/L 21-32 [facility] ([facility] Chloride Level 102 meq/L 98-107 [facility] ([facility] Calcium Level 9.7 mg/dL 8.8-10.2 [facility] ([facility] Anion Gap 5 meq/L 8-16 [facility] ([facility] Alt/SGPT 26 U/L 12-78 [facility] ([facility] Ast/Sgot 20 U/L 7-37 [facility] ([facility] Alkaline Phosphatase 66 U/L 45-117 [facility] ([facility] Total Protein 6.3 GM/DL 6.4-8.2 [facility] ([facility] Bilirubin,Total 0.6 mg/dL 0.2-1.0 [facility] ([facility] Albumin 3.4 GM/DL 3.2-5.2 [facility] ([facility] Albumin/Globulin Ratio 1.2 1.2-2.2 [facility] ([facility] ID Date Data Source [id number] 05/23/2021 01:15:00 PM EDT [facility] ([facility] Name Value Range Interpretation Code Description Data Ana M rce(s) Supporting Document(s) Total Iron Binding Capacity 403 ug/dL 250-450 [facility] ([facility] Iron (Fe) 54 ug/dL 50-170 [facility] ([facility] Percent Saturation 13.4 % 13.2-45.0 [facility] ([facility] ID Date Data Source [id number] 05/23/2021 01:15:00 PM EDT [facility] ([facility] Name Value Range Interpretation Code Description Data Ana M rce(s) Supporting Document(s) Vitamin B12 Level 643 pg/mL [facility] ([facility] VITAMIN B12 NORMAL RANGE NORMAL 247 - 911 PG/ML INDETERMINATE 211 - 246 PG/ML DEFICIENT LESS THAN 211 PG/ML Folate 17.2 ng/mL [facility] ([facility] FOLATE NORMAL RANGE NORMAL GREATER THAN 5.4 NG/ML INDETERMINATE 3.4-5.4 NG/ML DEFICIENT LESS THAN 3.4 NG/ML ID Date Data Source [id number] 05/07/2021 11:51:00 PM EDT [facility] Name Value Range Interpretation Code Description Data [facility] rce(s) Supporting Document(s) SARS coronavirus 2 RNA [Presence] in Res piratory specimen by ION with probe detection NEGATIVE [facility] This lab was ordered by [facility] a nd reported by [facility]. ID Date Data Source [id number] 05/07/2021 09:03:00 PM EDT [facility] ([facility] Name Value Range Interpretation Code Description [facility]) Appearance, Urine RFX Laboratory test result [facility] ([facility] PH,Urine RFX 8.0 units 5.0-9.0 [facility] ([facility] Color, Urine RFX Laboratory test result [facility] ([facility] Specific [place] Ur Auto RFX 1.048 1.002-1.035 [facility] ([facility] Protein, Urine Auto RFX Laboratory test result [facility] ([facility] Glucose, Urine (Ua) Auto RFX Laboratory test result [facility] ([facility] Ketone, Urine Auto RFX Laboratory test result [facility] ([facility] Urobilinogen, Urine Auto RFX 0.2 mg/dL 0.0-2.0 [facility] ([facility] Bilirubin, Urine Auto RFX Laboratory test result [facility] ([facility] Leukocyte Esterase Ur Auto RFX Laboratory test result [facility] ([facility] Nitrite, Urine Auto RFX Laboratory test result [facility] ([facility] Blood, Urine Blood RFX Laboratory test result [facility] ([facility] WBC, Urine Auto RFX 1 /HPF 0-3 [facility] ([facility] RBC, Urine Auto RFX 2 /HPF 0-3 [facility] ([facility] Squam Epithelial Cell Ur Aurfx 3 /HPF 0-6 [facility] ([facility] Bacteria, Urine Auto RFX Laboratory test result [facility] ([facility] Hyaline Cast, Urine Auto RFX 0 /LPF 0-1 [facility] ([facility] ID Date Data Source [id number] 05/07/2021 06:37:00 PM EDT [facility] ([facility] Name Value Range Interpretation Code Description Data Ana M rce(s) Supporting Document(s) Laboratory test finding (navigational concept) 22.0 % 38.0-51.0 [facility] ([facility] Laboratory test finding (navigational concept) 120 mg/dL 70-105 [facility] ([facility] Laboratory test finding (navigational concept) 138 meq/L 136-145 [facility] ([facility] Laboratory test finding (navigational concept) 3.9 meq/L 3.5-5.1 [facility] ([facility] Laboratory test finding (navigational concept) 4.7 mg/dL 4.5-5.3 [facility] ([facility] Laboratory test finding (navigational concept) 26.0 MM/L 23.0-27.0 [facility] ([facility] Laboratory test finding (navigational concept) 100 meq/L 98-109 [facility] ([facility] Laboratory test finding (navigational concept) 11 mg/dL 8-26 [facility] ([facility] Laboratory test finding (navigational concept) 0.9 mg/dL 0.6-1.3 [facility] ([facility] ID Date Data Source [id number] 05/07/2021 06:09:00 PM EDT [facility] ([facility] Name Value Range Interpretation Code Description Data Ana M rce(s) Supporting Document(s) aPTT in Platelet poor plasma by Coagulation assay 20.9 s 25.9-37. 0 [facility] ([facility] ID Date Data Source [id number] 05/07/2021 06:09:00 PM EDT [facility] ([facility] Name Value Range Interpretation Code Description Data Ana M rce(s) Supporting Document(s) White Blood Count 6.6 10 4.0-10.0 [facility] ([facility] Red Blood Count 2.48 10 4.00-5.40 [facility] ([facility] Hemoglobin 7.6 g/dL 12.0-15.5 [facility] Mean Corpuscular Volume 97.2 fl 80.0-96.0 M [facility] ([facility] Mean Corpuscular Hemoglobin 30.6 pg 27.0-33.0 [facility] ([facility] Hematocrit 24.1 % 36.0-47.0 [facility] Red Cell Distribution Width 15.9 % 11.5-14.5 [facility] ([facility] Mean Corpuscular HGB Conc 31.5 g/dL 32.0-36.5 [facility] ([facility] Platelet Count, Automated 307 10 150-450 [facility] ([facility] Neutrophils % 78.5 % 36.0-66.0 [facility] ([facility] Lymph % 14.1 % 24.0-44.0 [facility] Dent % 5.5 % 2.0-8.0 [facility] Eos % 1.1 % 0.0-3.0 [facility] Nucleated Red Blood Cell % 0.0 % 0-0 [facility] ([facility] Immature Granulocyte % 0.6 % 0-3.0 [facility] ([facility] Baso % 0.2 % 0.0-1.0 [facility] ([facility] Neutrophils # 5.2 10 1.5-8.5 [facility] ([facility] Lymph # 0.9 10 1.5-5.0 [facility] ([facility] Dent # 0.4 10 0.0-0.8 [facility] ([facility] Eos # 0.1 10 0.0-0.5 [facility] ([facility] Baso # 0.0 10 0.0-0.2 [facility] ([facility] ID Date Data Source [id number] 05/07/2021 06:09:00 PM EDT [facility] ([facility] Name Value Range Interpretation Code Description Data Ana M rce(s) Supporting Document(s) Prothrombin Time 12.9 s 12.7-14.5 [facility] ([facility] Inr 0.93 [facility] ([facility] THERAPUTIC HUMAN INR VALUES INDICATIONS NORMAL RANGES PROPHYLAXIS/TREATMENT OF: VENOUS THROMBOSIS 2.0-3.0 PULMONARY EMBOLISM 2.0-3.0 PREVENTION OF SYSTEMIC EMBOLISM FROM: TISSUE HEART VALVES 2.0-3.0 ACUTE MYOCARDIAL INFARCTION 2.0-3.0 VALVULAR HEART DISEASE 2.0-3.0 ATRIAL FIBRILLATION 2.0-3.0 MECHANICAL VALVES(HIGH RISK) 2.5-3.5 RECURRENT MYOCARDIAL INFARCTION 2.5-3.5 ID Date Data Source [id number] 05/07/2021 06:09:00 PM EDT [facility] ([facility] Name Value Range Interpretation Code Description Data Ana M rce(s) Supporting Document(s) Ast/Sgot 13 U/L 7-37 [facility] ([facility] Alt/SGPT 15 U/L 12-78 [facility] ([facility] Bilirubin,Total 0.7 mg/dL 0.2-1.0 [facility] ([facility] Alkaline Phosphatase 66 U/L 45-117 [facility] ([facility] Total Protein 6.0 GM/DL 6.4-8.2 [facility] ([facility] Bilirubin,Direct 0.2 mg/dL 0.0-0.2 [facility] ([facility] Albumin 3.3 GM/DL 3.2-5.2 [facility] ([facility] Albumin/Globulin Ratio 1.2 1.2-2.2 [facility] ([facility] ID Date Data Source [id number] 05/07/2021 06:09:00 PM EDT [facility] ([facility] Name Value Range Interpretation Code Description Data Ana M rce(s) Supporting Document(s) Lipoprotein lipase [Enzymatic activity/volume] in Serum or P lasma 115 U/L 73-393 [facility] ([facility] Lactate [Mass/volume] in Serum or Plasma 2.7 mmol/L 0.4-2.0 Above upper panic limits [facility] ([facility] Y/N query for Sepsis Lactate Rule: Y ID Date Data Source [id number] 04/07/2021 11:09:00 AM EDT [facility] ([facility]) Name Value Range Interpretation Code Description Data Ana M rce(s) Supporting Document(s) Blood Urea Nitrogen 14 mg/dL 7-18 Normal (applies to non-nume lionel results) [facility] ([facility], ) Glucose, Fasting 111 mg/dL 70-100 Above high normal [facility] ([facility]) Creatinine For GFR 0.75 mg/dL 0.55-1.30 Normal (applies to non -numeric results) [facility] ([facility]) Sodium Level 140 meq/L 136-145 Normal (applies to non-numeric res ults) [facility]) Glomerular Filtration Rate Laboratory test result Normal (applies to non- numeric results) [facility] ([facility], ) <content>Units are mL/min/1.73 m2</content>
<content></content>
<content>Chronic Kidney Disease Staging per NKF:</content>
<content></content>
<content>Stage I & II GFR >=60 Normal to Mildly Decreased</content>
<content>Stage III GFR 30- 59 Moderately Decreased</content>
<content>Stage IV GFR 15-29 Severely Decreased</content>
<content>Stage V GFR <15 Very Little GFR Left</content>
<content>ESRD GFR <15 on MICROFILM OPERATOR</content>
<content></content> Potassium Serum 4.1 meq/L 3.5-5.1 Normal (applies to non-numeric results) [facility] ([facility], ) Chloride Level 104 meq/L 98-107 Normal (applies to non-numeric r esults) [facility] ([facility], ) Carbon Dioxide Level 31 meq/L 21-32 Normal (applies to non-num lorenzo results) [facility] ([facility], ) Anion Gap 5 meq/L 8-16 Below low normal [facility] ( [facility], ) Calcium Level 9.3 mg/dL 8.8-10.2 Normal (applies to non-numeric re sults) [facility] ([facility], ) Ast/Sgot 20 U/L 7-37 Normal (applies to non-numeric resul ts) [facility] ([facility], ) Alkaline Phosphatase 66 U/L 45-117 Normal (applies to non-num lorenzo results) [facility] ([facility], ) Alt/SGPT 19 U/L 12-78 Normal (applies to non-numeric resul ts) [facility] ([facility], ) Bilirubin,Total 0.7 mg/dL 0.2-1.0 Normal (applies to non-numeric results) [facility] ([facility], ) Total Protein 6.0 GM/DL 6.4-8.2 Below low normal [facility] ([facility], ) Albumin 3.4 GM/DL 3.2-5.2 Normal (applies to non-numeric resul ts) [facility], ) Albumin/Globulin Ratio 1.3 1.2-2.2 Normal (applies to non-n umeric results) [facility] ([facility]) 05/08/21 (FriMay 08) 09:57 AM HERNAN ROMERO progressive decline in Hb---likely relatyed toAZA. Stop AZA--new allergy ID Date Data Source [id number] 04/07/2021 11:09:00 AM EDT [facility] ([facility]) Name Value Range Interpretation Code Description Data Ana M rce(s) Supporting Document(s) White Blood Count 5.9 10 4.0-10.0 Normal (applies to non-numeri c results) [facility] ([facility]) Red Blood Count 3.04 10 4.00-5.40 Below low normal [facility] ([facility]) Hemoglobin 9.3 g/dL 12.0-15.5 Below low normal [facility] ( [facility]) Mean Corpuscular Hemoglobin 30.6 pg 27.0-33.0 Norm al (applies to non-numeric results) [facility]) Hematocrit 28.9 % 36.0-47.0 Below low normal [facility] ( [facility]) Mean Corpuscular Volume 95.1 fl 80.0-96.0 Normal ( applies to non-numeric results) [facility] ([facility]) Mean Corpuscular HGB Conc 32.2 g/dL 32.0-36.5 Normal (applies to non-numeric results) [facility] ([facility]) Red Cell Distribution Width 14.7 % 11.5-14.5 Above high normal [facility] ([facility]) Neutrophils % 70.9 % 36.0-66.0 Above high normal [facility] ([facility]) Lymph % 18.2 % 24.0-44.0 Below low [facility] Platelet Count, Automated 271 10 150-450 Normal (applies to non-numeric results) [facility]) Eos % 1.7 % 0.0-3.0 Normal (applies to non-numeric resul ts) [facility] ([facility]) Dent % 7.8 % 2.0-8.0 Normal (applies to non-numeric resul ts) [facility] ([facility]) Baso % 0.7 % 0.0-1.0 Normal (applies to non-numeric resul ts) [facility] ([facility]) Immature Granulocyte % 0.7 % 0-3.0 Normal (applies to non-n umeric results) [facility] ([facility]) Neutrophils # 4.2 10 1.5-8.5 Normal (applies to non-numeric re sults) [facility] ([facility]) Lymph # 1.1 10 1.5-5.0 Below low normal [facility] ( [facility]) Nucleated Red Blood Cell % 0.0 % 0-0 Normal (applies to n on-numeric results) [facility] ([facility]) Dent # 0.5 10 0.0-0.8 Normal (applies to non-numeric resul ts) [facility] ([facility]) Eos # 0.1 10 0.0-0.5 Normal (applies to non-numeric resul ts) [facility] ([facility]) Baso # 0.0 10 0.0-0.2 Normal (applies to non-numeric resul ts) [facility] ([facility]) ID Date Data Source [id number] 04/07/2021 11:09:00 AM EDT [facility] ([facility] Name Value Range Interpretation Code Description Data Ana M rce(s) Supporting Document(s) Glucose, Fasting 111 mg/dL 70-100 [facility] Blood Urea Nitrogen 14 mg/dL 7-18 [facility] ([facility] Creatinine For GFR 0.75 mg/dL 0.55-1.30 [facility] ([facility] Sodium Level 140 meq/L 136-145 [facility] Potassium Serum 4.1 meq/L 3.5-5.1 [facility] ([facility] Glomerular Filtration Rate Laboratory test result [facility] ([facility] <content>Units are mL/min/1.73 m2</content>
<content></content>
<content>Chronic Kidney Disease Staging per NKF:</content>
<content></content>
<content>Stage I & II GFR >=60 Normal to Mildly Decreased</content>
<content>Stage III GFR 30- 59 Moderately Decreased</content>
<content>Stage IV GFR 15-29 Severely Decreased</content>
<content>Stage V GFR <15 Very Little GFR Left</content>
<content>ESRD GFR <15 on MICROFILM OPERATOR</content>
<content></content> Carbon Dioxide Level 31 meq/L 21-32 [facility] ([facility] Chloride Level 104 meq/L 98-107 [facility] Anion Gap 5 meq/L 8-16 [facility] ([facility] Calcium Level 9.3 mg/dL 8.8-10.2 [facility] ([facility] Ast/Sgot 20 U/L 7-37 [facility] ([facility] Alt/SGPT 19 U/L 12-78 [facility] ([facility] Alkaline Phosphatase 66 U/L 45-117 [facility] ([facility] Bilirubin,Total 0.7 mg/dL 0.2-1.0 [facility] ([facility] Albumin 3.4 GM/DL 3.2-5.2 [facility] ([facility] Total Protein 6.0 GM/DL 6.4-8.2 [facility] ([facility] Albumin/Globulin Ratio 1.3 1.2-2.2 [facility] ([facility] ID Date Data Source [id number] 04/07/2021 11:09:00 AM EDT [facility] ([facility] Name Value Range Interpretation Code Description Data Ana M rce(s) Supporting Document(s) White Blood Count 5.9 10 4.0-10.0 [facility] ([facility] Red Blood Count 3.04 10 4.00-5.40 [facility] ([facility] Hemoglobin 9.3 g/dL 12.0-15.5 [facility] ([facility] Hematocrit 28.9 % 36.0-47.0 [facility] ([facility] Mean Corpuscular Volume 95.1 fl 80.0-96.0 M [facility] ([facility] Mean Corpuscular Hemoglobin 30.6 pg 27.0-33.0 [facility] ([facility] Mean Corpuscular HGB Conc 32.2 g/dL 32.0-36.5 [facility] ([facility] Red Cell Distribution Width 14.7 % 11.5-14.5 [facility] ([facility] Neutrophils % 70.9 % 36.0-66.0 [facility] ([facility] Platelet Count, Automated 271 10 150-450 [facility] ([facility] Lymph % 18.2 % 24.0-44.0 [facility] ([facility] Dent % 7.8 % 2.0-8.0 [facility] ([facility] Eos % 1.7 % 0.0-3.0 [facility] Baso % 0.7 % 0.0-1.0 [facility] Immature Granulocyte % 0.7 % 0-3.0 [facility] ([facility] [facility] Nucleated Red Blood Cell % 0.0 % 0-0 [facility] ([facility] Lymph # 1.1 10 1.5-5.0 [facility] ([facility] Dent # 0.5 10 0.0-0.8 [facility] ([facility] Neutrophils # 4.2 10 1.5-8.5 [facility] ([facility] Baso # 0.0 10 0.0-0.2 [facility] ([facility] Eos # 0.1 10 0.0-0.5 [facility] ([facility] ID Date Data Source [id number] 03/04/2021 10:49:00 AM EDT [facility] ([facility] Name Value Range Interpretation Code Description Data Ana M rce(s) Supporting Document(s) Blood Urea Nitrogen 11 mg/dL 7-18 [facility] ([facility]ito [facility] Glucose, Fasting 161 mg/dL 70-100 [facility] ([facility] Glomerular Filtration Rate Laboratory test result [facility] ([facility] A. Jose[facility] <content>Units are mL/min/1.73 m2</content>
<content></content>
<content>Chronic Kidney Disease Staging per NKF:</content>
<content></content>
<content>Stage I & II GFR >=60 Normal to Mildly Decreased</content>
<content>Stage III GFR 30- 59 Moderately Decreased</content>
<content>Stage IV GFR 15-29 Severely Decreased</content>
<content>Stage V GFR <15 Very Little GFR Left</content>
<content>ESRD GFR <15 on MICROFILM OPERATOR</content>
<content></content> Creatinine For GFR 0.83 mg/dL 0.55-1.30 [facility] ([facility] Sodium Level 140 meq/L 136-145 [facility] ([facility] Chloride Level 103 meq/L 98-107 [facility] ([facility] Carbon Dioxide Level 29 meq/L 21-32 [facility] ([facility] Potassium Serum 3.6 meq/L 3.5-5.1 [facility] ([facility] Ast/Sgot 27 U/L 7-37 [facility] ([facility] Anion Gap 8 meq/L 8-16 [facility] ([facility] Calcium Level 8.9 mg/dL 8.8-10.2 [facility] ([facility] Alt/SGPT 27 U/L 12-78 [facility] ([facility] Alkaline Phosphatase 85 U/L 45-117 [facility] ([facility] Total Protein 6.7 GM/DL 6.4-8.2 [facility] ([facility] Bilirubin,Total 0.8 mg/dL 0.2-1.0 [facility] ([facility] Albumin 3.6 GM/DL 3.2-5.2 [facility] ([facility] Albumin/Globulin Ratio 1.2 1.2-2.2 [facility] ([facility] ID Date Data Source [id number] 03/04/2021 10:49:00 AM EDT [facility] ([facility] Name Value Range Interpretation Code Description Data Ana M e(s) Supporting Document(s) Malb Urine Siemens 13.2 mg/L [facility] ([facility]manuel [facility] Creatinine, Urine 77.3 mg/dL [facility] ([facility] Higinio/Creat Ratio 17.0 MCG/MG 0.0-30.0 [facility] ([facility]cho [facility] THE [employer] STATES THAT MICROALBUMINURIA IS PRESENT IF THE MICROALBUMIN/CREATININE RATIO EXCEEDS 30 MCG/MG. THE THRESHOLD FOR CLINICAL ALBUMINURIA IS REACHED AT 300 MCG/MG. THE CLASSIFICATION OF A PATIENT SHOULD BE BASED UPON AT LEAST 2 OF 3 ABNORMAL RESULTS ON SPECIMENS COLLECTED WITHIN A 3 TO 6 MONTH TIME FRAME. ID Date Data Source [id number] 03/04/2021 10:49:00 AM EDT [facility] ([facility] Name Value Range Interpretation Code Description Data Ana M rce(s) Supporting Document(s) Triglycerides Level 366 mg/dL [facility] ([facility] LDL Cholesterol 52 mg/dL [facility] ([facility] HDL Cholesterol 40 mg/dL [facility] ([facility] Cholesterol Level 165 mg/dL [facility] ([facility] Non-HDL-C 125 mg/dL [facility] ([facility] Cholesterol Risk Ratio 4.125 [facility] ([facility] ID Date Data Source [id number] 03/04/2021 10:49:00 AM EDT [facility] ([facility] Name Value Range Interpretation Code Description Data Ana M rce(s) Supporting Document(s) Hemoglobin A1c/Hemoglobin.total in Blood 7.7 % [facility] ([facility] <content>REFERENCE RANGES:</content><br/ ><content></content>
<content><=5.6% NORMAL</content>
<content>5.7-6.4% SUGGESTS IMPAIRED GLUCOSE METABOLISM/PREDIABETIC</content>
<content>>= 6.5% ABNORMAL</content>
<content></content> Estimated Average Glucose 174 mg/dL 60-110 [facility] ([facility] ID Date Data Source [id number] 01/25/2021 11:35:00 AM EDT [facility] ([facility] Name Value Range Interpretation Code Description Data Ana M rce(s) Supporting Document(s) Lactate [Mass/volume] in Serum or Plasma 3.3 mmol/L 0.4-2.0 Above upper panic limits [facility] ([facility] Y/N query for Sepsis Lactate Rule: Y ID Date Data Source [id number] 01/25/2021 08:22:00 AM EDT [facility] ([facility] Name Value Range Interpretation Code Description Data Ana M rce(s) Supporting Document(s) Laboratory test finding (navigational concept) 36.0 % 38.0-51.0 [facility] ([facility] Laboratory test finding (navigational concept) 143 mg/dL 70-105 [facility] ([facility] Laboratory test finding (navigational concept) 138 meq/L 136-145 [facility] ([facility] Laboratory test finding (navigational concept) 4.2 meq/L 3.5-5.1 [facility] ([facility] Laboratory test finding (navigational concept) 4.7 mg/dL 4.5-5.3 [facility] ([facility] Laboratory test finding (navigational concept) 96 meq/L 98-109 [facility] ([facility] Laboratory test finding (navigational concept) 29.0 MM/L 23.0-27.0 [facility] ([facility] Laboratory test finding (navigational concept) 10 mg/dL 8-26 [facility] ([facility] Laboratory test finding (navigational concept) 0.7 mg/dL 0.6-1.3 [facility] ([facility] ID Date Data Source [id number] 01/25/2021 07:28:00 AM EDT [facility] ([facility] Name Value Range Interpretation Code Description Data Ana M rce(s) Supporting Document(s) CPK Creatine Phosphokinase 26 U/L 26-192 [facility] ([facility] CK-MB Value Mass Laboratory test result [facility] ([facility] MB/CK Relative Index 3.85 [facility] ([facility] <content>DIAGNOSIS CRITERIA</content>
<content>MMB ng/ml Relative Index (RI)</content>
<content>NON-AMI < or = 5 N/A</content>
<content>ANGLIN ZONE > 5 < or = 4</content>
<content>AMI > 5 > 4</content>
<content></content> Troponin I Laboratory test result [facility] ([facility] <content>Troponin I Reference Interval f or Siemens [place] LOCI:</content>
<content></content>
<content>99th Percentile= 0.00-0.045 ng/ml</content>
<content></content>
<content>Risk Stratification:</content>
<content><= 0.10 ng/ml Decreased Risk for Adverse Clinical</content>
<content>Events.</content>
<content>0.10-1.50 ng/ml Increased Risk for Adverse Clinical</content>
<content>Events. Evaluation of additional</content>
<content>criterion and/or repeat testing in 2-6</content>
<content>hours is suggested to rule out myocardial</content>
<content>damage.</content>
<content>>= 1.50 ng/ml Indicative of Myocardial Injury.</content>
<content></content> ID Date Data Source [id number] 01/25/2021 07:28:00 AM EDT [facility] ([facility] Name Value Range Interpretation Code Description Data Ana M e(s) Supporting Document(s) Lipoprotein lipase [Enzymatic activity/volume] in Serum or P lasma 114 U/L 73-393 [facility] ([facility] MOBILAB COMMENT--- ID Date Data Source [id number] 01/25/2021 07:28:00 AM EDT [facility] ([facility]rcia [facility] Name Value Range Interpretation Code Description Data Ana M rce(s) Supporting Document(s) Ast/Sgot 20 U/L 7-37 [facility] ([facility] Alkaline Phosphatase 87 U/L 45-117 [facility] ([facility] Alt/SGPT 22 U/L 12-78 [facility] ([facility] Bilirubin,Direct 0.2 mg/dL 0.0-0.2 [facility] ([facility] Bilirubin,Total 0.6 mg/dL 0.2-1.0 [facility] ([facility] Albumin/Globulin Ratio 1.2 1.2-2.2 [facility] ([facility] Total Protein 6.7 GM/DL 6.4-8.2 [facility] ([facility] Albumin 3.7 GM/DL 3.2-5.2 [facility] ([facility] ID Date Data Source [id number] 01/25/2021 07:28:00 AM EDT [facility] ([facility] Name Value Range Interpretation Code Description Data Ana M rce(s) Supporting Document(s) Prothrombin Time 12.2 s 12.5-14.3 [facility] ([facility] Inr 0.89 [facility] ([facility] THERAPUTIC HUMAN INR VALUES INDICATIONS NORMAL RANGES PROPHYLAXIS/TREATMENT OF: VENOUS THROMBOSIS 2.0-3.0 PULMONARY EMBOLISM 2.0-3.0 PREVENTION OF SYSTEMIC EMBOLISM FROM: TISSUE HEART VALVES 2.0-3.0 ACUTE MYOCARDIAL INFARCTION 2.0-3.0 VALVULAR HEART DISEASE 2.0-3.0 ATRIAL FIBRILLATION 2.0-3.0 MECHANICAL VALVES(HIGH RISK) 2.5-3.5 RECURRENT MYOCARDIAL INFARCTION 2.5-3.5 ID Date Data Source [id number] 01/25/2021 07:28:00 AM EDT [facility] ([facility] Name Value Range Interpretation Code Description Data Ana M rce(s) Supporting Document(s) White Blood Count 9.2 10 4.0-10.0 [facility] ([facility] Red Blood Count 3.82 10 4.00-5.40 [facility] ([facility] Hematocrit 35.7 % 36.0-47.0 [facility] ([facility] angel [facility] Hemoglobin 11.6 g/dL 12.0-15.5 [facility] ([facility] Mean Corpuscular Volume 93.5 fl 80.0-96.0 M [facility] ([facility] Mean Corpuscular Hemoglobin 30.4 pg 27.0-33.0 [facility] ([facility] Red Cell Distribution Width 13.0 % 11.5-14.5 [facility] ([facility] Mean Corpuscular HGB Conc 32.5 g/dL 32.0-36.5 [facility] ([facility] Platelet Count, Automated 280 10 150-450 [facility] ([facility] Lymph % 11.8 % 24.0-44.0 [facility] ([facility] Neutrophils % 80.0 % 36.0-66.0 [facility] ([facility] Eos % 0.9 % 0.0-3.0 [facility] ([facility] Dent % 6.1 % 2.0-8.0 [facility] ([facility] Immature Granulocyte % 0.7 % 0-3.0 [facility] ([facility] Baso % 0.5 % 0.0-1.0 [facility] ([facility] Neutrophils # 7.4 10 1.5-8.5 [facility] ([facility] Nucleated Red Blood Cell % 0.0 % 0-0 [facility] ([facility] Dent # 0.6 10 0.0-0.8 [facility] ([facility] Lymph # 1.1 10 1.5-5.0 [facility] ([facility] Baso # 0.1 10 0.0-0.2 [facility] ([facility] Eos # 0.1 10 0.0-0.5 [facility] ([facility] ID Date Data Source [id number] 12/05/2020 04:33:54 PM EDT [facility] Name Value Range Interpretation Code Description Data Ana M rce(s) Supporting Document(s) Progress Note [facility] OYUEBj5dPdXQCjBx72/YSEnzVJIwe3OuEVxmJZx0BXrzIIWaT2HfWPH7nX7xPSS0QRfATwEjDyTtCHLr [facility] [file] 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 7.5 cc of Gadavist were administered uneventfully. The patient was given 450 cc of Volumen over 12 hours.COMPARISON: None available at the time of this dictation.FINDINGS: ABDOMEN:There are multiple less than 1 cm nonenhancing lesions within bilateral kidneys. Several of these lesions demonstrate increased signal on T2 and are co nsistent with simple renal cysts. A few of these lesions is increased signal on T1 and are most consistent with proteinaceous or hemorrhagic cysts. Scattered prominent lobulation versus subtle cortical thinning in bilateral kidneys with suggestion of scarring at the inferior pole of the right kidney and lower interpolar region of the left kidney. This examination was not targeted for evaluation of the intra-abdominal organs, which limits their evaluation, however the remainder of the intra-abdominal organs are grossly unremarkable in appearance.The liver, gallbladder, spleen, adrenal glands, pancreas reveal normal signal intensity. There is no evidence of ascites. There is no significant lymphadenopathyBOWEL:There is mild suggestion of hyperenhancement with prominent folds seen in the duodenum and the proximal jejunum. Mild apparent thickening seen in early images was due to underdistention, not distinctly identified with transient distention, however cannot exclude subtle eccentric subtle thickening. Subtle enhancement seen at the ileocecal junction without distinct thickening. The small bowel loops are normal in caliber without evidence of obstruction.. No stricture is identified. The terminal ileum is clearly identified. Expected peristalsis is demonstrated on the Cine sequence. Subtle suggestion of hyperenhancement at the margin of the large bowel, could be artifactual given the amount of T1 shortening within the colonic lumen on noncontrast images, cannot exclude underlying subtle eccentric lesion.There is no evidence of abdominal abscess.There is laxity of the lateral abdominal wall, right greater than left. PELVIS:No adnexal masses seen. Uterus appears unremarkable. There is no significant lymphadenopathy or pelvic abscess.Multilevel degenerative changes are seen in the spine. Mild subcutaneous edema seen in the right lateral abdominal wall. The abdominal aorta and its proximal branches reveal normal opacification. Posterior deep subcutaneous paraspinal edema is seenIMPRESSION: 1. Suggestion of mild hyperenhancement with prominent folds seen in the duodenum and the proximal jejunum, at least a component accentuated due to T1 shortening seen on the precontrast image from th e intraluminal contents, could reflect inflammatory/infective etiology. Subtle enhancement seen at the ileocecal junction without distinct thickening. Subtle suggestion of hyperenhancement at the margin of the large bowel, could be artifactual given the amount of T1 shortening within the colonic lumen on noncontrast images, cannot exclude underlying subtle eccentric lesion. No evidence of bowel obstruction or stricture or abdominal abscess. Comparison with prior studies would be helpful. 2. Several simple renal cysts and hemorrhagic/proteinaceous renal cysts within bilateral kidneys are noted.3. Sli ght laxity of the right lateral abdominal wall. 4. Clinical correlation and follow-up is suggested.This document has been electronically signed by KELLY Bedolla on 10/30/2020 10:55 AM Name Value Range Interpretation Code Description Data Ana M rce(s) Supporting Document(s) ID Date Data Source [id number] 10/30/2020 10:58:[address] [facility] MR ENTEROGRAPHY PELVIS [id number] RESULT Interpreted by:Amaya Bedolla MDINDICATION: Ileal Crohn's disease with small bowel obstruction.TECHNIQUE: Multisequence multiplanar images of the abdomen and pelvis were obtained with MR enterography protocol. 7.5 cc of Gadavist were administered uneventfully. The patient was given 450 cc of Volumen over 12 hours.COMPARISON: None available at the time of this dictation.FINDINGS: ABDOMEN:There are multiple less than 1 cm nonenhancing lesions within bilateral kidneys. Several of these lesions demonstrate increased signal on T2 and are con sistent with simple renal cysts. A few of these lesions is increased signal on T1 and are most consistent with proteinaceous or hemorrhagic cysts. Scattered prominent lobulation versus subtle cortical thinning in bilateral kidneys with suggestion of scarring at the inferior pole of the right kidney and lower interpolar region of the left kidney. This examination was not targeted for evaluation of the intra-abdominal organs, which limits their evaluation, however the remainder of the intra-abdominal organs are grossly unremarkable in appearance.The liver, gallbladder, spleen, adrenal glands, pancreas reveal normal signal intensity. There is no evidence of ascites. There is no significant lymphadenopathyBOWEL:There is mild suggestion of hyperenhancement with prominent folds seen in the duodenum and the proximal jejunum. Mild apparent thickening seen in early images was due to underdistention, not distinctly identified with transient distention, however cannot exclude subtle eccentric subtle thickening. Subtle enhancement seen at the ileocecal junction without distinct thickening. The small bowel loops are normal in caliber without evidence of obstruction.. No stricture is identified. The terminal ileum is clearly identified. Expected peristalsis is demonstrated on the Cine sequence. Subtle suggestion of hyperenhancement at the margin of the large bowel, could be artifactual given the amount of T1 shortening within the colonic lumen on noncontrast images, cannot exclude underlying subtle eccentric lesion.There is no evidence of abdominal abscess.There is laxity of the lateral abdominal wall, right greater than left. PELVIS:No adnexal masses seen. Uterus appears unremarkable. There is no significant lymphadenopathy or pelvic abscess.Multilevel degenerative changes are seen in the spine. Mild subcutaneous edema seen in the right lateral abdominal wall. The abdominal aorta and its proximal branches reveal normal opacification. Posterior deep subcutaneous paraspinal edema is seenIMPRESSION: 1. Suggestion of mild hyperenhancement with prominent folds seen in the duodenum and the proximal jejunum, at least a component accentuated due to T1 shortening seen on the precontrast image from the intraluminal contents, could reflect inflammatory/infective etiology. Subtle enhancement seen at the ileocecal junction without distinct thickening. Subtle suggestion of hyperenhancement at the margin of the large bowel, could be artifactual given the amount of T1 shortening within the colonic lumen on noncontrast images, cannot exclude underlying subtle eccentric lesion. No evidence of bowel obstruction or stricture or abdominal abscess. Comparison with prior studies would be helpful. 2. Several simple renal cysts and hemorrhagic/proteinaceous renal cysts within bilateral kidneys are noted.3. Slig ht laxity of the right lateral abdominal wall. 4. Clinical correlation and follow-up is suggested.This document has been electronically signed by KELLY Bedolla on 10/30/2020 10:55 AM Name Value Range Interpretation Code Description Data Ana M rce(s) Supporting Document(s) ID Date Data Source [id number] 10/19/2020 03:11:00 PM EST [facility] ([facility] Name Value Range Interpretation Code Description Data Ana M rce(s) Supporting Document(s) Glomerular Filtration Rate Laboratory test result [facility] ([facility] <content>Units are mL/min/1.73 m2</content>
<content></content>
<content>Chronic Kidney Disease Staging per NKF:</content>
<content></content>
<content>Stage I & II GFR >=60 Normal to Mildly Decreased</content>
<content>Stage III GFR 30-59 Moderately Decreased</content>
<content>Stage IV GFR 15-29 Severely Decreased</content>
<content>Stage V GFR <15 Very Little GFR Left</content>
<content>ESRD GFR <15 on MICROFILM OPERATOR</content>
<content></content> Creatinine For GFR 0.83 mg/dL 0.55-1.30 [facility] ([facility] ID Date Data Source [id number] 09/01/2020 12:23:54 PM 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 mechanic [file] ICAgICAgICAgICAgICAgICAgICAgICAgICAgICAgICAgICAgICAgICAgICAgICAgICAgICAgICAgICAg ICAgICAgICAgICAgICAgICAgICAgICAgICAgICAgICANCiAgICAgICAgICAgICAgICAgICAgICAgICAg ICAgICAgICAgICAgICAgICAgICAgICAgICAgICAgIC AgICAgICAgICAgICAgICAgICAgICAgICAgICAgICAgICAgICAgICAgICANCiAgICAgICAgICAgICAgIC AgICAgICAgICAgICAgICAgICAgICAgICAgICAgICAgICAgICAgICAgICAgICAgICAgICAgICAgICAgIC AgICAgICAgICAgICAgICAgICAgICAgICANCiAgICAg ICAgICAgICAgICAgICAgICAgICAgICAgICAgICAgICAgICAgICAgICAgICAgICAgICAgICAgICAgICAg ICAgICAgICAgICAgICAgICAgICAgICAgICAgICAgICAgICANCiAgICAgICAgICAgICAgICAgICAgICAg ICAgICAgICAgICAgICAgICAgICAgICAgICAgICAgIC AgICAgICAgICAgICAgICAgICAgICAgICAgICAgICAgICAgICAgICAgICAgICANCiAgICAgICAgICAgIC AgICAgICAgICAgICAgICAgICAgICAgICAgICAgICAgICAgICAgICAgICAgICAgICAgICAgICAgICAgIC AgICAgICAgICAgICAgICAgICAgICAgICAgICANCiAg ICAgICAgICAgICAgICAgICAgICAgICAgICAgICAgICAgICAgICAgICAgICAgICAgICAgICAgICAgICAg ICAgICAgICAgICAgICAgICAgICAgICAgICAgICAgICAgICAgICANCiAgICAgICAgICAgICAgICAgICAg ICAgICAgICAgICAgICAgICAgICAgICAgICAgICAgIC AgICAgICAgICAgICAgICAgICAgICAgICAgICAgICAgICAgICAgICAgICAgICAgICANCiAgICAgICAgIC AgICAgICAgICAgICAgICAgICAgICAgICAgICAgICAgICAgICAgICAgICAgICAgICAgICAgICAgICAgIC AgICAgICAgICAgICAgICAgICAgICAgICAgICAgICAN CiAgICAgICAgICAgICAgICAgICAgICAgICAgICAgICAgICAgICAgICAgICAgICAgICAgICAgICAgICAg ICAgICAgICAgICAgICAgICAgICAgICAgICAgICAgICAgICAgICAgICANCjw/qTTeV6bqmRNwdqL8M7za Jw6KOx4QZN2qn9EtMFUwRSpntyZcVugRVpZiISEaLe bZJzx7XVjuRK8KgUQtX6XvU3HrCYrcXA9XKJQsTTEcuRJfVSTcGBVrGeZ8HNKnHYvaRK2IxNXlADhlGL SaZBKnRM4VDRYoD769jbEfWH0JJz0AViTmWP6tfo7TBuGnUSGbFieKCae1MZcjJK9GwQFopCGhWiVcIS ELWgKqW5qnr6EpYkJaEWZAVZsvVH8Uj3QsuVMcCSx+ Fi5JBG9ty3RoJWxeLlBuDI0jup8MFJzBIwKqG5MdyZijJWHjk1cgUFJcLR5tiNWqUDG7IP35eNYwzPAp VY8zRZMhIgloZWAzVPDxDB9aFD0uQSShRKBdOzZrSVFQQK1KCMKpEYIxdLKaQBUpEQYBMO6SGXraVBN9 OBIguxAtfREoCAolDB3XBASlxrUmOeWsGYSGQZr+Pg 1RSH9yx3SuTTfcVENlNX5wai1IDXtSXfEtO2P0aMInY0F8HFcoTl3WIJQiMLMqZcHrEVKJKMndXH0FTZ 3atmB7CQ0DmWHvHQWkTSQdjIVeHVe2U32kqAJsFMhnJF9OYKI+Sina+Bv1CYNCpQDLgDJPeXcVrGWZZAb SsY0PrT3OOa8UdI3CrRG50wNektpUcFPnpLV2JXQ1j CSXcLHOWXJ6DcFPzuF4hshTsDwTkSKVGIgZqH60thUQyLIWlPDTbXFGaLk3BRZOaD4AshuNkbZjoxnTt ZVQeMGYFKW2IWQeuecAznASoxSbrZR63oEyrEN3TAy7SMmYvVQ8ixg4TuYKhMq9EWYSpAZ6GZBPbIGRb FNRlBHC9RROkFxYaRDfqPCCgADNaREN0TMSyGCZnXF 7EDvAlBWPxOGc3HrViEYTmGODcbx6RKBAtHYAhBVZ9ICCdDSUjRIBnSZihKGEzOBLyVTU0YVUmNNRhYV 1JGuFoKHFnHMKoDqAbZDIlQGIbur7WIBOyNDNkSoM2VEYdBSCzUXGwQOyjBTAzZOX1DCDeDKLoOXLqTL 6MBnMkAASwSEC1ZHlyFFCpHJFylr1FRNNyHHSoTSd8 QKVcZGTsSLPtAUmfIRGdRUJ1USX0UECqWPOpEI4PZpPqNLJqGQGcIMgwIJRaYHBwiq5CDVWbQNKmQqJ3 ZaUvAAHuOJStRLlqUOEoOZA9Kbp4YFDqPQXoAX8OUmTzLINxJNhxJUCmXBHqYJYniv0LDPVyOOCtQFEc ROXiRMBsNXVwLZckDMMoRIP7LUTlCXNgYFKeFN5MTx OsLHOvJHk3IRJvCLWkWWQjri5KEQWvMYSqZMI2HHUgQGAlSMDaNPydSMIuDUP8JlNxNGBnEPQzYE8VUm FyLBZhLJs3PKQbBIDjWSBugy1WBURsWYSsNTRgCYDiKWCxBGTkONpvBXWcZKJnLtC7TWCbXJXbWV2IGw OiMJJcWcC1FpsyQEFwAOHblm3WRIRdUYXpXWn0IdWz XRCsICNiDUu8qyUlfBQiZOf9HZ9EA6HbxqOvNlTQNr7Xz832TMK2VRYrKd4IW1uiGd4nFYPgVETDCf6B ZRc5CSp7Agd9LYEyLqf5ZcQgPRNhFEc1XWIuVGQgURvwOND+IDxlOTlmNzdkMjIyODVmNDBkYmVkNzY0 CHIoXCPdFwWdSl1qHPTVQp4+QXvruAWzbAenDIHAJpKyIcTpDPibGCBCXj9P ID Date Data Source [id number] 08/27/2020 11:57:00 AM EST [facility] ([facility] Name Value Range Interpretation Code Description Data Ana M rce(s) Supporting Document(s) QuantiFERON Criteria Laboratory test result [facility] ([facility] . The QuantiFERON-TB Gold Plus result is determined by subtracting the Nil value from either TB antigen (Ag) tube. The mitogen tube serves as a control for the test. QuantiFERON TB1 Ag Value 0.02 IU/ml [facility] QuantiFERON TB2 Ag Value 0.02 IU/ml [facility] ([facility] QuantiFERON Nil Value 0.03 IU/ml [facility] ([facility] QuantiFERON-TB Gold Plus Laboratory test result [facility] ([facility] . The specimen received for QuantiFERON testing was incubated by the ordering institution. Specific procedures outlined in our Directory of Services and in the package insert for the QuantiFERON Gold (In Tube) test must be followed to enable for proper stimulation of cells for the production of interferon gamma. Performed at: [address] [id number] [employer]gienist: Lubna Keenan MD, Phone: [phone] QuantiFERON Mitogen Value Laboratory test result [facility] ([facility] ID Date Data Source [id number] 08/27/2020 11:57:00 AM EST [facility] ([facility] Name Value Range Interpretation Code Description Data Ana M rce(s) Supporting Document(s) Hepatitis B virus surface Ag [Presence] in Serum or Pl asma by Immunoassay Laboratory test result [facility] ([facility] ID Date Data Source [id number] 08/27/2020 11:57:00 AM EST [facility] ([facility] Name Value Range Interpretation Code Description Data Ana M rce(s) Supporting Document(s) Hepatitis B virus surface Ag [Presence] in Serum or Pl asma by Immunoassay Laboratory test result Normal (applies to non-numeric results) [facility] ([facility], ) ID Date Data Source [id number] 08/27/2020 11:57:00 AM EST [facility] ([facility]) Name Value Range Interpretation Code Description Data Ana M rce(s) Supporting Document(s) QuantiFERON Criteria Laboratory test result Norm al (applies to non-numeric results) [facility] ([facility]) . The QuantiFERON-TB Gold Plus result is determined by subtracting the Nil value from either TB antigen (Ag) tube. The mitogen tube serves as a control for the test. QuantiFERON TB2 Ag Value 0.02 IU/ml Normal (applies to non -numeric results) [facility] ([facility], ) QuantiFERON TB1 Ag Value 0.02 IU/ml Normal (applies to non -numeric results) [facility], ) QuantiFERON Nil Value 0.03 IU/ml Normal (applies to non-nu meric results) [facility] ([facility]) QuantiFERON Mitogen Value Laboratory test result Normal (applies to non- numeric results) [facility] ([facility]) QuantiFERON-TB Gold Plus Laboratory test result Normal (applies to non-numeric results) [facility] ([facility]) . The specimen received for QuantiFERON testing was incubated by the ordering institution. Specific procedures outlined in our Directory of Services and in the package insert for the QuantiFERON Gold (In Tube) test must be followed to enable for proper stimulation of cells for the production of interferon gamma. Performed at: - [facility] [id number] Principle Industrial Hygienist: Lubna Keenan MD, Phone: [phone] ID Date Data Source [id number] 08/27/2020 11:56:00 AM EST [facility] ([facility] Name Value Range Interpretation Code Description Data Ana M rce(s) Supporting Document(s) Hemoglobin A1c/Hemoglobin.total in Blood 6.8 % [facility] ([facility] <content>REFERENCE RANGES:</content><br/ ><content></content>
<content><=5.6% NORMAL</content>
<content>5.7-6.4% SUGGESTS IMPAIRED GLUCOSE METABOLISM/PREDIABETIC</content>
<content>>= 6.5% ABNORMAL</content>
<content></content> Estimated Average Glucose 148 mg/dL 60-110 [facility] ([facility] ID Date Data Source [id number] 07/19/2020 11:40:00 AM EST [facility] ([facility]) Name Value Range Interpretation Code Description Data Ana M rce(s) Supporting Document(s) Calprotectin [Mass/mass] in Stool 314 ug/g 0-120 Above high no rmal [facility] ([facility]) <content>Concentration Interpretatio n Follow-Up</content>
<content><16 - 50 ug/g Normal None</content>
<content>>50 -120 ug/g Borderline Re-evaluate in 4-6 weeks</content>
<content>>120 ug/g Abnormal Repeat as clinically</content>
<content>indicated</content>
<content>Performed at: - [facility]</content>
<content>[address] [place] [phone]</content>
<content>Principle Industrial Hygienist: Piedad Peralta MD, Phone: [phone]</content>
<content></content> ID Date Data Source [id number] 06/04/2020 11:45:00 AM EDT [facility] ([facility] Name Value Range Interpretation Code Description Data Ana M rce(s) Supporting Document(s) Hemoglobin A1c/Hemoglobin.total in Blood 7.5 % [facility] ([facility] <content>REFERENCE RANGES:</content><br/ ><content></content>
<content><=5.6% NORMAL</content>
<content>5.7-6.4% SUGGESTS IMPAIRED GLUCOSE METABOLISM/PREDIABETIC</content>
<content>>= 6.5% ABNORMAL</content>
<content></content> Estimated Average Glucose 169 mg/dL 60-110 [facility] ([facility] ID Date Data Source [id number] 06/04/2020 11:44:00 AM EDT [facility] ([facility] Name Value Range Interpretation Code Description Data Ana M rce(s) Supporting Document(s) White Blood Count 8.0 10 4.0-10.0 [facility] ([facility] Red Blood Count 3.31 10 4.00-5.40 [facility] ([facility] Hematocrit 31.0 % 36.0-47.0 [facility] ([facility] Mean Corpuscular Volume 93.7 fl 80.0-96.0 M [facility] ([facility] Hemoglobin 10.0 g/dL 12.0-15.5 [facility] ([facility] Mean Corpuscular Hemoglobin 30.2 pg 27.0-33.0 [facility] ([facility] Red Cell Distribution Width 13.4 % 11.5-14.5 [facility] ([facility] Mean Corpuscular HGB Conc 32.3 g/dL 32.0-36.5 [facility] ([facility] Nucleated Red Blood Cell % 0.0 % 0-0 [facility] ([facility] Platelet Count, Automated 250 10 150-450 [facility] ([facility] ID Date Data Source [id number] 06/04/2020 11:44:00 AM EDT [facility] ([facility] Name Value Range Interpretation Code Description Data Ana M rce(s) Supporting Document(s) Erythrocyte sedimentation rate by 2H Westergren method 7 mm/hr 0-3 0 [facility] ([facility] ID Date Data Source [id number] 06/04/2020 11:44:00 AM EDT [facility] ([facility] Name Value Range Interpretation Code Description Data Ana M rce(s) Supporting Document(s) Blood Urea Nitrogen 14 mg/dL 7-18 [facility] ([facility] Creatinine For GFR 1.09 mg/dL 0.55-1.30 [facility] ([facility] Glucose, Fasting 321 mg/dL 70-100 [facility] ([facility] Potassium Serum 4.4 meq/L 3.5-5.1 [facility] ([facility] Glomerular Filtration Rate 53.5 [facility] ([facility] <content>Units are mL/min/1.73 m2</content>
<content></content>
<content>Chronic Kidney Disease Staging per NKF:</content>
<content></content>
<content>Stage I & II GFR >=60 Normal to Mildly Decreased</content>
<content>Stage III GFR 30- 59 Moderately Decreased</content>
<content>Stage IV GFR 15-29 Severely Decreased</content>
<content>Stage V GFR <15 Very Little GFR Left</content>
<content>ESRD GFR <15 on MICROFILM OPERATOR</content>
<content></content> Sodium Level 136 meq/L 136-145 [facility] ([facility] Anion Gap 11 meq/L 8-16 [facility] ([facility] Chloride Level 99 meq/L 98-107 [facility] ([facility] Carbon Dioxide Level 26 meq/L 21-32 [facility] ([facility] Alt/SGPT 24 U/L 12-78 [facility] ([facility] Ast/Sgot 17 U/L 7-37 [facility] ([facility] Calcium Level 8.7 mg/dL 8.8-10.2 [facility] ([facility] Alkaline Phosphatase 114 U/L 45-117 [facility] ([facility] Total Protein 6.3 GM/DL 6.4-8.2 [facility] ([facility] Bilirubin,Total 0.4 mg/dL 0.2-1.0 [facility] ([facility] Albumin 3.6 GM/DL 3.2-5.2 [facility] ([facility] Albumin/Globulin Ratio 1.3 1.2-2.2 [facility] ([facility] ID Date Data Source [id number] 06/04/2020 11:44:00 AM EDT [facility] ([facility] Name Value Range Interpretation Code Description Data Ana M rce(s) Supporting Document(s) Hepatitis B virus surface Ag [Presence] in Serum or Pl asma by Immunoassay Laboratory test result [facility] ([facility] Hepatitis B virus surface Ab [Presence] in Serum by Im munoassay Laboratory test result [facility] ([facility] Hepatitis C virus Ab [Units/volume] in Serum by Immunoassay 0.0 INDEX [facility] ([facility] Negative Not infected with HCV, unless recent infection is suspected or other evidence exists to indicate HCV infection. Rubella virus IgG Ab [Titer] in Serum Laboratory test result [facility] ([facility] THE RUBELLA RESULT WAS OBTAINED WITH THE CENTAUR RUBELLA IGG ASSAY. IgG VALUES FROM ANOTHER MANUFACTURERS' METHOD MAY NOT BE USED INTERCHANGEABLY. MAGNITUDE OF LEVEL CANNOT BE CORRELATED TO AN ENDPOINT TITER. SUSCEPTIBLE 0.00-5.00 IU/ML EQUIVOCAL 5.01-9.99 IU/ML IMMUNE > 10.00 IU/ML C reactive protein [Mass/volume] in Serum or Plasma by High sensitivity method 0.30 mg/dL 0.00-0.30 [facility] ([facility] ID Date Data Source [id number] 06/04/2020 11:44:00 AM EDT [facility] ([facility] Name Value Range Interpretation Code Description Data Ana M rce(s) Supporting Document(s) Laboratory test finding (navigational concept) 1.3 [facility] ([facility] <content>Result Units: Units/mL RBC</con tent>
<content>Reference Range:</content>
<content>Normal: 15.1 - 26.4</content>
<content>Heterozygous for low TPMT variant: 6.3 - 15.0</content>
<content>Homozygous for low TPMT variant: <6.3</content>
<content></content> Laboratory test finding (navigational concept) Laboratory test result [facility] ([facility] . 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 For patients having an intrinsic low level of TPMT, recent RBC transfusion can variably increase their assayed enzymatic activity depending on the amount and circulating half-life of the transfused red blood cells. This test was developed and its performance characteristics determined by [facility]. It has not been cleared or approved by the Food and Drug Administration. This case has been reviewed, approved, interpreted and electronically signed by Alexei Gay, PhD, [facility]. Laboratory test finding (navigational concept) Laboratory test result [facility] ([facility] . Enzymatic Endpoint/Liquid Chromatography - Tandem Mass Spectrometry (LC-MS/MS) ID Date Data Source [id number] 06/04/2020 11:44:00 AM EDT [facility] ([facility] Name Value Range Interpretation Code Description Data Ana M rce(s) Supporting Document(s) Measles virus Ab [Presence] in Serum Laboratory test result [facility] ([facility] <content>Negative <13.5</content>
<content>Equivocal 13.5 - 16.4</content>
<content>Positive >16.4</content>
<content> Presence of antibodies to Rubeola is presumptive evidence</content>
<content>of immunity except when acute infection is suspected.</content>
<content></content> Herpes simplex virus IgG Ab [Presence] in Serum 1457 index [facility] ([facility] <content>Negative <135</content >
<content>Equivocal 135 - 165</content>
<content>Positive >165</content>
<content>A positive result generally indicates exposure to the</content>
<content>pathogen or administration of specific immunoglobulins,</content>
<content>but it is not indication of active infection or stage</content>
<content>of disease.</content>
<content></content> Mumps virus IgG Ab [Presence] in Serum 9.2 AU/mL [facility] ([facility] <content>A second sample should be colle cted and tested no less than</content>
<content>2-4 weeks.</content>
<content>Negative <9.0</content>
<content>Equivocal 9.0 - 10.9</content>
<content>Positive >10.9</content>
<content>A positive result generally indicates past exposure to</content>
<content>Mumps virus or previous vaccination.</content>
<content></content> Hepatitis A virus IgG Ab [Units/volume] in Serum Laboratory test result Abnormal (applies to non-numeric results) [facility] ([facility] Performed at: [facility] [address] [place] [id number] Principle Industrial Hygienist: Rusty Magana MD, Phone: [phone] Performed at: - [facility] [id number] Principle Industrial Hygienist: Lubna Keenan MD, Phone: [phone] Hepatitis B Core Antibody Igg Laboratory test result [facility] ([facility] ID Date Data Source [id number] 05/28/2020 07:39:00 PM EDT [facility] ([facility] Name Value Range Interpretation Code Description Data Ana M rce(s) Supporting Document(s) Appearance, Urine RFX Laboratory test result [facility] ([facility] PH,Urine RFX 5.0 units 5.0-9.0 [facility] ([facility] Specific [place] Ur Auto RFX 1.015 1.002-1.035 [facility] ([facility] Color, Urine RFX Laboratory test result [facility] ([facility] Glucose, Urine (Ua) Auto RFX Laboratory test result [facility] ([facility] Protein, Urine Auto RFX Laboratory test result [facility] ([facility] Urobilinogen, Urine Auto RFX 0.2 mg/dL 0.0-2.0 [facility] ([facility] Ketone, Urine Auto RFX Laboratory test result [facility] ([facility] Bilirubin, Urine Auto RFX Laboratory test result [facility] ([facility] Leukocyte Esterase Ur Auto RFX Laboratory test result [facility] ([facility] Nitrite, Urine Auto RFX Laboratory test result [facility] ([facility] Blood, Urine Blood RFX Laboratory test result [facility] ([facility] RBC, Urine Auto RFX 2 /HPF 0-3 [facility] Bacteria, Urine Auto RFX Laboratory test result [facility] ([facility] WBC, Urine Auto RFX 1 /HPF 0-3 [facility] ([facility] Squam Epithelial Cell Ur Aurfx 1 /HPF 0-6 [facility] ([facility] Hyaline Cast, Urine Auto RFX 1 /LPF 0-1 [facility] ([facility] Mucus, Urine RFX Laboratory test result [facility] ([facility] ID Date Data Source [id number] 05/28/2020 06:20:00 PM EDT [facility] ([facility] Name Value Range Interpretation Code Description Data Ana M rce(s) Supporting Document(s) Lipoprotein lipase [Enzymatic activity/volume] in Serum or P lasma 110 U/L 73-393 [facility] ([facility] ID Date Data Source [id number] 05/28/2020 06:20:00 PM EDT [facility] ([facility] Name Value Range Interpretation Code Description Data Ana M rce(s) Supporting Document(s) Glucose, Fasting 167 mg/dL 70-100 [facility] ([facility] Blood Urea Nitrogen 8 mg/dL 7-18 [facility] ([facility] Creatinine For GFR 0.88 mg/dL 0.55-1.30 [facility] ([facility] Glomerular Filtration Rate Laboratory test result [facility] ([facility] <content>Units are mL/min/1.73 m2</content>
<content></content>
<content>Chronic Kidney Disease Staging per NKF:</content>
<content></content>
<content>Stage I & II GFR >=60 Normal to Mildly Decreased</content>
<content>Stage III GFR 30-59 Moderately Decreased</content>
<content>Stage IV GFR 15-29 Severely Decreased</content>
<content>Stage V GFR <15 Very Little GFR Left</content>
<content>ESRD GFR <15 on MICROFILM OPERATOR</content>
<content></content> Sodium Level 137 meq/L 136-145 [facility] ([facility] Carbon Dioxide Level 24 meq/L 21-32 [facility] Chloride Level 101 meq/L 98-107 [facility] ([facility] Potassium Serum 4.2 meq/L 3.5-5.1 [facility] ([facility] Calcium Level 8.7 mg/dL 8.8-10.2 [facility] ([facility] Anion Gap 12 meq/L 8-16 [facility] ID Date Data Source [id number] 05/28/2020 06:20:00 PM EDT [facility] ([facility] Name Value Range Interpretation Code Description Data Ana M rce(s) Supporting Document(s) Ast/Sgot 36 U/L 7-37 [facility] ([facility] Alt/SGPT 25 U/L 12-78 [facility] Alkaline Phosphatase 124 U/L 45-117 [facility] ([facility] Bilirubin,Total 0.8 mg/dL 0.2-1.0 [facility] ([facility] Bilirubin,Direct 0.2 mg/dL 0.0-0.2 [facility] ([facility] Total Protein 6.9 GM/DL 6.4-8.2 [facility] ([facility] Albumin/Globulin Ratio 1.2 1.2-2.2 [facility] ([facility] Albumin 3.7 GM/DL 3.2-5.2 [facility] ID Date Data Source [id number] 05/28/2020 06:20:00 PM EDT [facility] ([facility] Name Value Range Interpretation Code Description Data Ana M e(s) Supporting Document(s) Inr 0.88 [facility] ([facility] THERAPUTIC HUMAN INR VALUES INDICATIONS NORMAL RANGES PROPHYLAXIS/TREATMENT OF: VENOUS THROMBOSIS 2.0-3.0 PULMONARY EMBOLISM 2.0-3.0 PREVENTION OF SYSTEMIC EMBOLISM FROM: TISSUE HEART VALVES 2.0-3.0 ACUTE MYOCARDIAL INFARCTION 2.0-3.0 VALVULAR HEART DISEASE 2.0-3.0 ATRIAL FIBRILLATION 2.0-3.0 MECHANICAL VALVES(HIGH RISK) 2.5-3.5 RECURRENT MYOCARDIAL INFARCTION 2.5-3.5 Prothrombin Time 12.1 s 12.5-14.3 [facility] ([facility] ID Date Data Source [id number] 05/28/2020 06:20:00 PM EDT [facility] ([facility] Name Value Range Interpretation Code Description Data Ana M e(s) Supporting Document(s) White Blood Count 7.6 10 4.0-10.0 [facility] Hemoglobin 10.7 g/dL 12.0-15.5 [facility] ([facility] Red Blood Count 3.55 10 4.00-5.40 [facility] ([facility] Mean Corpuscular Hemoglobin 30.1 pg 27.0-33.0 [facility] Hematocrit 32.1 % 36.0-47.0 [facility] Mean Corpuscular Volume 90.4 fl 80.0-96.0 M [facility] ([facility] Mean Corpuscular HGB Conc 33.3 g/dL 32.0-36.5 [facility] ([facility] Red Cell Distribution Width 13.4 % 11.5-14.5 [facility] ([facility] Dent % 5.0 % 0.0-5.0 [facility] Lymph % 12.9 % 24.0-44.0 [facility] Platelet Count, Automated 260 10 150-450 [facility] Neutrophils % 80.0 % 36.0-66.0 [facility] ([facility] Eos % 1.3 % 0.0-3.0 [facility] Immature Granulocyte % 0.4 % 0-3.0 [facility] Baso % 0.4 % 0.0-1.0 [facility] Neutrophils # 6.1 10 1.5-8.5 [facility] Nucleated Red Blood Cell % 0.0 % 0-0 [facility] Dent # 0.4 10 0.0-0.8 [facility] Lymph # 1.0 10 1.5-5.0 [facility] Baso # 0.0 10 0.0-0.2 [facility] Eos # 0.1 10 0.0-0.5 [facility] ID Date Data Source [id number] 05/26/2020 03:09:00 PM EDT [facility] ([facility] Name Value Range Interpretation Code Description Data Ana M rce(s) Supporting Document(s) White Blood Count 6.8 10 4.0-10.0 [facility] Red Blood Count 3.26 10 4.00-5.40 [facility] Hemoglobin 9.8 g/dL 12.0-15.5 [facility] Hematocrit 30.4 % 36.0-47.0 [facility] Mean Corpuscular Hemoglobin 30.1 pg 27.0-33.0 [facility] Mean Corpuscular Volume 93.3 fl 80.0-96.0 M [facility] ([facility] Red Cell Distribution Width 13.5 % 11.5-14.5 [facility] ([facility] Mean Corpuscular HGB Conc 32.2 g/dL 32.0-36.5 [facility] Neutrophils % 67.7 % 36.0-66.0 [facility] ([facility] Platelet Count, Automated 196 10 150-450 [facility] Lymph % 21.1 % 24.0-44.0 [facility] Baso % 0.4 % 0.0-1.0 [facility] Dent % 8.7 % 0.0-5.0 [facility] Eos % 1.5 % 0.0-3.0 [facility] Immature Granulocyte % 0.6 % 0-3.0 [facility] Nucleated Red Blood Cell % 0.0 % 0-0 [facility] Lymph # 1.4 10 1.5-5.0 [facility] Dent # 0.6 10 0.0-0.8 [facility] Neutrophils # 4.6 10 1.5-8.5 [facility] Eos # 0.1 10 0.0-0.5 [facility] Baso # 0.0 10 0.0-0.2 [facility] ID Date Data Source [id number] 05/26/2020 03:09:00 PM EDT [facility] ([facility] Name Value Range Interpretation Code Description Data Ana M rce(s) Supporting Document(s) Hemoglobin A1c/Hemoglobin.total in Blood 7.4 % [facility] <content>REFERENCE RANGES:</content><br/ ><content></content>
<content><=5.6% NORMAL</content>
<content>5.7-6.4% SUGGESTS IMPAIRED GLUCOSE METABOLISM/PREDIABETIC</content>
<content>>= 6.5% ABNORMAL</content>
<content></content> Estimated Average Glucose 166 mg/dL 60-110 [facility] ID Date Data Source [id number] 05/25/2020 04:56:59 PM EDT [facility] Name Value Range Interpretation Code Description Data Ana M rce(s) Supporting Document(s) Progress Note [facility] SXPQWz3wTcHIOkXt42/PILukADRmt3BvRAoqDAf7AKqaJVOgU4BaCDF2kU4gZJD0CFaIGaUoWjVmDYP6 lbm [file] FACULTY INSTRUCTOR/9PBznelWMLoaGMLSUEj2lTACzDiQC+kVubtNQ6Mkc9oC7S2znQr6G2c44xJzYFLfTpb4YLBYrKowi [file] UbYvBgXtP6YcSzTUY5FKe4KZqzUF8nTYIPGh1+SXmysQVogWniXIATLaKjFirxOJudOBLMMc2X ID Date Data Source [id number] 05/19/2020 02:00:00 PM EDT [facility] ([facility] Name Value Range Interpretation Code Description Data Ana M rce(s) Supporting Document(s) Coronavirus 2019 Nasopharygeal Laboratory test result [facility] ([facility] This nucleic acid amplification test was developed and its performance characteristics determined by [facility]. Nucleic acid amplification tests include PCR and TMA. This test has not been FDA cleared or approved. This test has been authorized by FDA under an Emergency Use Authorization (EUA). This test is only authorized for the duration of time the declaration that circumstances exist justifying the authorization of the emergency use of in vitro diagnostic tests for detection of SARS-CoV-2 virus and/or diagnosis of COVID-19 infection under section 564(b)(1) of the Act, 21 U.S.C. 360bbb-3 (b) (1), unless the authorization is terminated or revoked sooner. When diagnostic testing is negative, the possibility of a false negative result should be considered in the context of a patient's recent exposures and the presence of clinical signs and symptoms consistent with COVID-19. An individual without symptoms of COVID-19 and who is not shedding SARS-CoV-2 virus would expect to have a negative (not detected) result in this assay. [facility] [id number] Principle Industrial Hygienist: Lubna Keenan MD, Phone: [phone] Not Detected ID Date Data Source [id number] 05/19/2020 02:00:00 PM EDT [facility] Name Value Range Interpretation Code Description Data Ana M rce(s) Supporting Document(s) SARS coronavirus 2 RNA [facility] This lab was ordered by [facility] and reported by [facility]. ID Date Data Source [id number] 05/13/2020 05:43:20 PM EDT [facility] Name Value Range Interpretation Code Description Data Ana M rce(s) Supporting Document(s) &PDF [facility] EHISCc1jIqTHPqRx14/ZEAzcIVKrg2VeSArmTDa2VEohCFCwH8MtaBxkJEfAH7VpRGoTVZJxOJYlMJqy waW ChT5yyrQLnzgRVn0Yip9LidDyutcjTGoKiRq1TPbEjQI1jyg9NJSClJN2njw6XGAR2WP3NvKg2SJLgO0 YyEQNuJIRii3YoAQ7PHB5keTyyAfH7DD6+WIgkFUV9hvHipB2SSZYvHQ1OAsyY/r4z+z2279vLeXdoR+ m+isABIFMjWZJEdB9mD4iNHis7BDQaLLUi58rdqV+n 4qreTRCRvftUv4VRGOcj5vLJXyR//1ebSRQEgSr+UB6LUbEKW7Qp/2hv3ykXnVg+KjrN/w9dMsqNxgGj E1kPGVlA//1vvtuqO0ycdRoBCLwM//0uit7568uYo3mXBcKWscbeNUckKruAU6Ehplk2wG62td95vD [file] front line leader+BXAODAicZ/YwSlYoOHYElhCHIcHmvCSWxsGR015NmEkkgFTmyQ50anxaZaExCGn8zuoBN2yTS0Wo [file] RHONDA+ABikEOncvNy5sGDyWJWoVf2SJPVuPEFqBHFhMPIcGJLzLNCoKRBrRMItFNGhLOCwPUPdVSAhVFDu ICAgICAgICAgICAgICAgICAgICAgICAgICAgICAgICAgICAgICAgICAgICAgICAgICAgICAgICAgICAg UD8HFTEpYLEnGRUbJNIvPIDcWABbZLYkRBDuPVRcZA AgICAgICAgICAgICAgICAgICAgICAgICAgICAgICAgICAgICAgICAgICAgICAgICAgICAgICAgICAgIC FgKRHkSWMbHURtRG6IZZFeCHAhGDHrRHKpBAJdUHBjLTCxKPCrTIXtRISoFRXwXUGuPWXfGDJlBXMfDL AgICAgICAgICAgICAgICAgICAgICAgICAgICAgICAg VWMmQJRvOWXiFANcXZGgUAAlWXQoOO1XDWRzHIVmRVVrGYAuGGPzRFTwRUTiOLUvMIAbUIFmNQPiRNRc ICAgICAgICAgICAgICAgICAgICAgICAgICAgICAgICAgICAgICAgICAgICAgICAgICAgICAgICAgICAg NDPjBP1PXEYkVTYaVYZmSASmAXBtQAQbGSIuGQPyCM AgICAgICAgICAgICAgICAgICAgICAgICAgICAgICAgICAgICAgICAgICAgICAgICAgICAgICAgICAgIC GwUURyUKGcVQYnDLUwVX0CKYAwLLPnPYUdVENsRGNhAKAaJPLmCXBgYJYwKBKoIBAgGWQqWTFiKGGgPQ AgICAgICAgICAgICAgICAgICAgICAgICAgICAgICAg HSJuRGAiDLXlRGYaXYOnQVOfIYWiBYYyUT6JEQEcVTSaEZVjUILxLGQcAPWbWBKxHERuLJBxSMBbEYWy ICAgICAgICAgICAgICAgICAgICAgICAgICAgICAgICAgICAgICAgICAgICAgICAgICAgICAgICAgICAg EPLvEPSyLM6JFWOsSILiROFzCBGsXZSeYFHkNZRoVT AgICAgICAgICAgICAgICAgICAgICAgICAgICAgICAgICAgICAgICAgICAgICAgICAgICAgICAgICAgIC BcKZFsWUSmNDLcKMJcQSFeEZ0YORMkXUOuUIAhQCGbQSAlRZMcAVZqSTZpJUItHOZmTJRoZANtQLNaLQ AgICAgICAgICAgICAgICAgICAgICAgICAgICAgICAg YLLxWMRwQRZwSQTzNHIhXJXqHGFcVOFkWSMqYV8HVSNaIWJbAQBoZTDoIJGfECRdKCMlQWCvQSKzTREu ICAgICAgICAgICAgICAgICAgICAgICAgICAgICAgICAgICAgICAgICAgICAgICAgICAgICAgICAgICAg IZHgLBRiILToLR6RRA61iURbm4R6TGGbYZ5xxbw/Pg 0JANkpnpOakWYqIV1SPeNzCQ3lpt6CTpPyRT2yda5JBIhXVrDeQ6R9pZFqUPFrLRODWeEeT23cLIkgZj 39MUcrNGKqElQuEMt8Qe1BNcKwL5wwGSJgMkC7SHQhRfT8IPOsWkSlGAioLA7Zp6LceTCgJGx+Pg0KZW 4kf6DbKKdjNuVnQZ3pdu4LFUvKGdMrJ1H8wNIeW4R5 QJkjAn2EULUuWSBzPzJrBNFFCHzrNE0KYT2sqrS7QV5LiQXmPRVfPHAecPAoJLs9T42zpYWeXMbfLU8N ICA+Sina+Vx3PEKQkOOYvCKJuBgLvABPOVoClY52avYFeXCFmXERcMDGlHl0FEODuO4DwqvHjrQjmncZw WXNfKCHHPH5IJFnjivKviBMbuRinEH53sJidBE1FNv 0RLuMmXS0yhh7MhENmOt4QXXWhPE8OOKRrVFAeVSWzLWW1TPXaHtPtFOqjPUAyAVDhKKP7SZCjHCNcXV 8QEhGgTDBoYGasYwIzDCYwYJTotf4JZAFuWGI5CBJ6PECuVKTkWGDlBNtdPQPmWNLdUDk1VWZbULEjHL 2TQeUoGUJbIZA3UsoeEHTyQPMehx7DGGWvQZYwOjS9 IaHmQFBbMUQlXSbnBBBmHXF5JHL9YZEaATOkNE9EHsEkGXHePTR1ReVuZYItZVQzlu8VTBRdDWVtZkS2 LGOuFQLtCAGcNQwdZOWoQHP5Jxj6MIQmQICeHG1ONeIrTUUwTSl3JyHdQHKjINIgru6NWDPnUMKhIQni FJOyHTMcMOUcRCbiZRDhXQF7YVC7PBEsUSAzNM8LWc FzUECbSPvpCXLvSHGeESMqyz4CESAbTQXqTZQ9IVLwYFPwAMStFJvoMLRwNOY9RAz4CEUhTDNdIZ6JAb NpFHSkXSA5TQBoQZJnVHMqvu1QNVNdRPWwZEj5PIUuXCUnKFCgXKywJQAkQQI6XUq8MWLdTYNmED9RLs CcLHAqPNSpGtrgMPDnPXYpcq5UAIZdJBTqXcYzFCPy ATLgSGAxWFnuFNKbZGR3Cku8LBXcHAOwIQ8SNwHtYFDlPwRpIaTwPXFgEIDrip2QOBEtSZPoPCE7UIEt MUHlRLQeTZnqRVEuVHQ1ToX6IAOnDUPnAV7FPaKlRSBsSTU3WXTvOOHdMPBdsl9XPNJuBRB3IFM8GJTf VQCjOKEjZYqkNQLuCUQzTGCoRUOeCQGaND4ZElLdFW YuCqO4TXdyDMJmQTCkux9FJGNaALN7BFW4UBBzDJWhCPLgVLahAATqEMl8DdHnPIHzGINnQJ5VVfZsTC XaDZt6ADFqXVYqSKQzai9CWRVdCTN3LUG8XCRaLABkSUOaPLl6asWqjYKhCLy6NI6FN8GrbwQoUxDQOe 2Yk087YZRoXYBfSz0FZ9boCn4bDHYsJFAUHb4GZHz6 TQW9CpD4XBK4ASCyJJFsZyM9EQEwZNDzICiuJ3WkGBP+PMw0LSmeQYv0KfP0W6V7E7OuDVBbGFDbBkUm I6LiJZLcXS8pBOOTUj7+HAqotZMwjRdeQDMBYrg6TGL2XLptAPDEPu0R ID Date Data Source [id number] 04/21/2020 12:00:00 AM EDT [facility]oles [facility], C Patient Name:ABRAHAN [id number] Date of : 1955[place] [address] Date of Exam: 04/21/2020#: Fax: [phone] EXAM: MAMMO SCREENING WITH CADCLINICAL INFORMATION: Screening.BILATERAL BREAST SCREENING MAMMOGRAPHY WITH 3D TOMOSYNTHESIS:There are no palpable abnormalities or other breast complaints.The patient states that she had a clinical breast examination over a yearago.The patient states she had a right breast abscess in November of 2015.Comparison is 05/24/2016.The breast parenchyma is Volpara volumetric breast density category is B,there are scattered areas of fibroglandular density.There are multiple bilateral scattered benign calcifications, unchanged.There is no dominant mass, microcalcific cluster or architecturaldistortion that would indicate malignancy.There are no additional findings on 3D tomosynthesis.There is no change from prior studies.IMPRESSION:BI-RADS Category 2 - Benign Finding(s). There is no evidence ofmalignancy.RECOMMENDATION:Routine annual screening mammography.This mammogram was interpreted with the aid of an YCT-wgssdbrsnbickcpp-nopef detection system. A. Negative mammogram reports should not delay biopsy if a dominantor cli nically suspicious mass is present. B. Not all breast cancers are identified by mammography ortomosynthesis. C. Adenosis and dense breasts may obscure a lesion.Patient letter M1.Based on the personal and family history information your patient suppliedat the time of imaging, her lifetime risk of breast cancer estimated by theTyrer-Cuzick model is 7.9%. Given that this patient has less than 20% TCrisk score, no further medical management is currently recommended at thistime.Nikolas Bob, KOREY/jmcThank you for referring BRISEYDA CHENG to our office. Electronically Signed - NIKOLAS BOB MD 04/25/20 10:06 Name Value Range Interpretation Code Description Data Ana M rce(s) Supporting Document(s) Procedure Social History Code Duration Value Status Description Data Source(s ) Smoking 05/15/2021 12:00:00 AM EDT Patient is a former smoker completed Patient is a former smoker [facility] Alcohol intake 12/27/2020 12:00:00 AM EDT Ex-drinker (finding) comp leted Ex- drinker (finding) [facility] Alcohol intake 08/23/2020 12:00:00 AM EST Not Currently completed [facility] Smoking 08/23/2020 12:00:00 AM EST Former smoker completed Former smoker [facility] Alcohol intake 06/14/2020 12:00:00 AM EDT Not Currently completed [facility] Smoking 06/14/2020 12:00:00 AM EDT Former smoker completed Former smoker [facility] Vital Signs ID Date Data Source UNK Name Value Range Interpretation Code Description Data Source(s) Systolic blood pressure 134 mm[Hg] 134 mm[Hg] [facility] ([facility]) Diastolic blood pressure 61 mm[Hg] 61 mm[Hg] [facility] ([facility]) Body height 57 [in_i] 57 [in_i] [facility] ([facility]) 4'9" Body weight 181.00 [lb_av] 181.00 [lb_av] [facility] ([facility]) Body mass index (BMI) [Ratio] 39.2 kg/m2 39.2 k g/m2 [facility] ([facility]) [place] body weight 100 [lb_av] 100 [lb_av] [facility] Body weight 82.102 kg 82.102 kg [facility] ([facility]) Body surface area Derived from formula 1.72 m2 1.72 m2 [facility] ([facility]) Systolic blood pressure 134 mm[Hg] 134 mm[Hg] [facility] ([facility] Diastolic blood pressure 75 mm[Hg] 75 mm[Hg] [facility] ([facility] Heart rate 81 /min 81 /min [facility] ([facility] Body temperature 99.0 [degF] 99.0 [degF] [facility] ([facility] Respiratory rate 18 /min 18 /min [facility] ( [facility] Body mass index (BMI) [Ratio] 39.7 kg/m2 39.7 k g/m2 [facility] ([facility] Body height 57 [in_i] 57 [in_i] [facility] ([facility] 4'9" Body weight 183.50 [lb_av] 183.50 [lb_av] [facility] ([facility] Oxygen saturation in Arterial blood by Pulse oximetry 97 % 97 % [facility] ([facility] [place] body weight 100 [lb_av] 100 [lb_av] [facility] ([facility] Systolic blood pressure 137 mm[Hg] 137 mm[Hg] [facility] ([facility] Heart rate 94 /min 94 /min [facility] ([facility] Body temperature 98.7 [degF] 98.7 [degF] [facility] ([facility] Respiratory rate 20 /min 20 /min [facility] ( [facility] [place] body weight 100 [lb_av] 100 [lb_av] [facility] ([facility] Body mass index (BMI) [Ratio] 39.1 kg/m2 39.1 k g/m2 [facility] ([facility] Oxygen saturation in Arterial blood by Pulse oximetry 98 % 98 % [facility] ([facility] Diastolic blood pressure 67 mm[Hg] 67 mm[Hg] [facility] ([facility] Body height 57.25 [in_i] 57.25 [in_i] [facility] ([facility] 4'9.25" Body weight 182.25 [lb_av] 182.25 [lb_av] [facility] ([facility] Systolic blood pressure 140 mm[Hg] 140 mm[Hg] [facility] ([facility]) Diastolic blood pressure 73 mm[Hg] 73 mm[Hg] [facility] ([facility]) Body height 57 [in_i] 57 [in_i] [facility] ([facility]) 4'9" Body weight 179.00 [lb_av] 179.00 [lb_av] [facility] ([facility]) Body mass index (BMI) [Ratio] 38.7 kg/m2 38.7 k g/m2 [facility] ([facility]) [place] body weight 100 [lb_av] 100 [lb_av] [facility] ([facility]) Body weight 81.194 kg 81.194 kg [facility] ([facility]) Body surface area Derived from formula 1.72 m2 1.72 m2 [facility] ([facility]) Diastolic blood pressure 82 mm[Hg] 82 mm[Hg] [facility] ([facility]) Body height 57 [in_i] 57 [in_i] [facility] ([facility]) 4'9" Body weight 185.00 [lb_av] 185.00 [lb_av] [facility] ([facility]) Body mass index (BMI) [Ratio] 40.0 kg/m2 40.0 k g/m2 [facility] ([facility]) [place] body weight 100 [lb_av] 100 [lb_av] [facility] ([facility]) Body weight 83.916 kg 83.916 kg [facility] ([facility]) Body surface area Derived from formula 1.74 m2 1.74 m2 [facility] ([facility]) Systolic blood pressure 144 mm[Hg] 144 mm[Hg] [facility] ([facility]) Systolic blood pressure 129 mm[Hg] 129 mm[Hg] [facility] ([facility] Diastolic blood pressure 68 mm[Hg] 68 mm[Hg] [facility] ([facility] Heart rate 89 /min 89 /min [facility] ([facility] Respiratory rate 17 /min 17 /min [facility] ( [facility] [place] body weight 100 [lb_av] 100 [lb_av] [facility] ([facility] Body mass index (BMI) [Ratio] 39.9 kg/m2 39.9 k g/m2 [facility] ([facility] Body temperature 96.8 [degF] 96.8 [degF] [facility] ([facility] Systolic blood pressure 146 mm[Hg] 146 mm[Hg] [facility] ([facility] Body height 57.25 [in_i] 57.25 [in_i] [facility] ([facility] 4'9.25" Body weight 186.12 [lb_av] 186.12 [lb_av] [facility] ([facility] Diastolic blood pressure 72 mm[Hg] 72 mm[Hg] [facility] ([facility] Oxygen saturation in Arterial blood by Pulse oximetry 98 % 98 % [facility] ([facility] Systolic blood pressure 130 mm[Hg] 130 mm[Hg] [facility] Diastolic blood pressure 80 mm[Hg] 80 mm[Hg] [facility] Heart rate 72 /min 72 /min [facility] Body height 144.8 cm 144.8 cm [facility] Body weight 85.73 kg 85.73 kg [facility] Body mass index (BMI) [Ratio] 40.90 kg/m2 40.90 kg/m2 [facility] Oxygen saturation in Arterial blood by Pulse oximetry 98 % 98 % [facility] Body height 57 [in_i] 57 [in_i] [facility] ([facility], ) 4'9" Body weight 180.00 [lb_av] 180.00 [lb_av] [facility] ([facility]) Body mass index (BMI) [Ratio] 38.9 kg/m2 38.9 k g/m2 [facility] ([facility]) [place] body weight 100 [lb_av] 100 [lb_av] [facility] ([facility]) Body weight 81.648 kg 81.648 kg [facility] ([facility]) Body surface area Derived from formula 1.72 m2 1.72 m2 [facility] ([facility]) Body surface area Derived from formula 1.72 m2 1.72 m2 [facility] ([facility]) Systolic blood pressure 154 mm[Hg] 154 mm[Hg] [facility] ([facility]) Diastolic blood pressure 78 mm[Hg] 78 mm[Hg] [facility] ([facility]) Body height 57 [in_i] 57 [in_i] [facility] ([facility]) 4'9" Body weight 180.00 [lb_av] 180.00 [lb_av] [facility] ([facility]) Body mass index (BMI) [Ratio] 38.9 kg/m2 38.9 k g/m2 [facility] ([facility]) [place] body weight 100 [lb_av] 100 [lb_av] [facility] ([facility], ) Body weight 81.648 kg 81.648 kg [facility] ([facility], ) Systolic blood pressure 200 mm[Hg] 200 mm[Hg] [facility] ([facility] Diastolic blood pressure 98 mm[Hg] 98 mm[Hg] [facility] ([facility] Systolic blood pressure 174 mm[Hg] 174 mm[Hg] [facility] ([facility] Diastolic blood pressure 82 mm[Hg] 82 mm[Hg] [facility] ([facility] Heart rate 82 /min 82 /min [facility] ([facility] Body temperature 97.1 [degF] 97.1 [degF] [facility] ([facility] Respiratory rate 16 /min 16 /min [facility] ( [facility] Body height 57.25 [in_i] 57.25 [in_i] [facility] ([facility] 4'9.25" Body weight 181.25 [lb_av] 181.25 [lb_av] [facility] ([facility] Oxygen saturation in Arterial blood by Pulse oximetry 98 % 98 % [facility] ([facility] [place] body weight 100 [lb_av] 100 [lb_av] [facility] ([facility] Body mass index (BMI) [Ratio] 38.9 kg/m2 38.9 k g/m2 [facility] ([facility] Body mass index (BMI) [Ratio] 36.79 kg/m2 36.79 kg/m2 [facility] Systolic blood pressure 138 mm[Hg] 138 mm[Hg] [facility] Diastolic blood pressure 70 mm[Hg] 70 mm[Hg] [facility] Heart rate 80 /min 80 /min [facility] Body height 144.8 cm 144.8 cm [facility] Body weight 77.111 kg 77.111 kg [facility] Body height 57 [in_i] 57 [in_i] [facility] ([facility], ) 4'9" Body weight 169.00 [lb_av] 169.00 [lb_av] [facility] ([facility], ) Body mass index (BMI) [Ratio] 36.6 kg/m2 36.6 k g/m2 [facility] ([facility], ) [place] body weight 100 [lb_av] 100 [lb_av] [facility], ) Body weight 76.658 kg 76.658 kg [facility] ([facility], ) Diastolic blood pressure 68 mm[Hg] 68 mm[Hg] [facility] ([facility]) Body surface area Derived from formula 1.67 m2 1.67 m2 [facility]) Systolic blood pressure 113 mm[Hg] 113 mm[Hg] [facility] ([facility], ) Systolic blood pressure 140 mm[Hg] 140 mm[Hg] [facility] Diastolic blood pressure 70 mm[Hg] 70 mm[Hg] [facility] Heart rate 87 /min 87 /min [facility] Body height 144.8 cm 144.8 cm [facility] Body weight 75.751 kg 75.751 kg [facility] Body mass index (BMI) [Ratio] 36.14 kg/m2 36.14 kg/m2 [facility] Oxygen saturation in Arterial blood by Pulse oximetry 98 % 98 % [facility] Diastolic blood pressure 81 mm[Hg] 81 mm[Hg] [facility] ([facility] Systolic blood pressure 168 mm[Hg] 168 mm[Hg] [facility] ([facility] Diastolic blood pressure 68 mm[Hg] 68 mm[Hg] [facility] ([facility] Heart rate 70 /min 70 /min [facility] ([facility] Body temperature 97.4 [degF] 97.4 [degF] [facility] ([facility] Systolic blood pressure 157 mm[Hg] 157 mm[Hg] [facility] ([facility] Respiratory rate 16 /min 16 /min [facility] ( [facility] Body height 57.25 [in_i] 57.25 [in_i] [facility] ([facility] 4'9.25" Body weight 164.38 [lb_av] 164.38 [lb_av] [facility] ([facility] Oxygen saturation in Arterial blood by Pulse oximetry 99 % 99 % [facility] ([facility] [place] body weight 100 [lb_av] 100 [lb_av] [facility] ([facility] Body mass index (BMI) [Ratio] 35.3 kg/m2 35.3 k g/m2 [facility] ([facility] Patient Treatment Plan of Care Planned Activity Planned Date Details Description Data Source (s) Enalapril Maleate 20 MG Oral Tablet 08/23/2020 12:00:00 AM EST [facility] Amlodipine 2.5 MG Oral Tablet 08/17/2020 12:00:00 AM EST [facility] Metoprolol Tartrate 25 MG Oral Tablet 07/24/2020 12:00:00 AM EST [facility] Enalapril Maleate 20 MG Oral Tablet 06/14/2020 12:00:00 AM EDT [facility] Budesonide 3 MG Delayed Release Oral Capsule 06/12/2020 12:00:00 AM EDT [facility] sitagliptin 100 MG Oral Tablet [Januvia] 05/31/2020 12:00:00 AM EDT [facility] Amlodipine 2.5 MG Oral Tablet 05/30/2020 12:00:00 AM EDT [facility] Acetaminophen 325 MG / Hydrocodone Bitartrate 5 MG Ora l Tablet 05/29/2020 12:00:00 AM EDT [facility] mercaptopurine 50 MG Oral Tablet 05/25/2020 12:00:00 AM EDT [facility] Cyclobenzaprine hydrochloride 10 MG Oral Tablet 03/06/2020 12:00:00 AM EDT [facility] Metformin hydrochloride 1000 MG Oral Tablet 02/27/2020 12:00:00 AM EDT [facility] Enalapril Maleate 20 MG Oral Tablet 02/02/2020 12:00:00 AM EDT [facility]
[2021-06-20] MEDS ORDERED: METH2.5T48 (10:29)
[2021-06-20] MEDS ORDERED: ONDANSETRON 4MG/2ML VIAL IV ONE ×2 (12:10→12:55)
--- OUTSIDE RECORDS SUMMARY | 2021-06-20 12:13 | CCD ---
Author Author [facility] Organization [facility] Address Unknown Phone Unavailable Care Team Providers Care Manager School Name Role Phone Kocan, J Fay CLOTH CUTTING INSPECTOR Unavailable Unavailable Kocan, J Fay CLOTH CUTTING INSPECTOR Unavailable Unavailable Kocan, J Fay CLOTH CUTTING INSPECTOR Unavailable Unavailable Kocan, J Fay CLOTH CUTTING INSPECTOR Unavailable Unavailable Kocan, J Fay CLOTH CUTTING INSPECTOR Unavailable Unavailable Kocan, J Fay CLOTH CUTTING INSPECTOR Unavailable Unavailable Kocan, J Fay CLOTH CUTTING INSPECTOR Unavailable Unavailable Kocan, J Fay CLOTH CUTTING INSPECTOR Unavailable Unavailable Kocan, J Fay CLOTH CUTTING INSPECTOR Unavailable Unavailable Kocan, J Fay CLOTH CUTTING INSPECTOR Unavailable Unavailable Kocan, J Fay CLOTH CUTTING INSPECTOR Unavailable Unavailable Kocan, J Fay CLOTH CUTTING INSPECTOR Unavailable Unavailable Kocan, J Fay CLOTH CUTTING INSPECTOR Unavailable Unavailable HERNAN ALBERT MD Unavailable Unavailable REINDLHERNAN MD Unavailable Unavailable HERNAN ALBERT MD Unavailable [...] Unavailable REINDL, HERNAN ROSAS Unavailable Unavailable Petrancosta, Brevard Britany PA-C Unavailable Unavailabl e Petrancosta, Bre[place] Britany PA-C Unavailable Unavailabl e Petrancosta, Bre[place] Britany PA-C Unavailable Unavailabl e Petrancosta, Bre[place] Britany PA-C Unavailable Unavailabl e Petrancosta, Bre[place] Britany PA-C Unavailable Unavailabl e Petrancosta, [place] Britany PA-C Unavailable Unavailabl e Petrancosta, [place] Britany PA-C Unavailable Unavailabl e Petrancosta, [place] Britany PA-C Unavailable Unavailabl e Petrancosta, [place] Britany PA-C Unavailable Unavailabl e Petrancosta, Bre[place] Britany PA-C Unavailable Unavailabl e Petrancosta, [place] Britany PA-C Unavailable Unavailabl e Petrancosta, Bre[place] Britany PA-C Unavailable Unavailabl e Petrancosta, [place] Britany PA-C Unavailable Unavailabl e Petrancosta, Bre[place] Britany PA-C Unavailable Unavailabl e Petrancosta, [place] Britany PA-C Unavailable Unavailabl e Petrancosta, Bre[place] Britany PA-C Unavailable Unavailabl e Petrancosta, Bre[place] Britany PA-C Unavailable Unavailabl e Petrancosta, Bre[place] Britany PA-C Unavailable Unavailabl e Petrancosta, Bre[place] Britany PA-C Unavailable Unavailabl e Petrancosta, Bre[place] Britany PA-C Unavailable Unavailabl e Petrancosta, Bre[place] Britany PA-C Unavailable Unavailabl e Petrancosta, Bre[place] Britany PA-C Unavailable Unavailabl e Petrancosta, Bre[place] Britany PA-C Unavailable Unavailabl e Petrancosta, Bre[place] Britany PA-C Unavailable Unavailabl e Petrancosta, Bre[place] Britany PA-C Unavailable Unavailabl e APRYL, ANNITA [...] APRYL, ANNITA ROSAS Unavailable Unavailable APRYL, ANNITA ROASS Unavailable Unavailable APRYL, ANNITA ROSAS Unavailable Unavailable [...] Unavailable APRYL, ANNITA ROSAS Unavailable Unavailable APRYL, ANNIAT ROSAS Unavailable Unavailable APRYL, ANNITA ROSAS Unavailable Unavailable APRYL, ANNITA ROSAS Unavailable Unavailable APRYL, ANNITA ROSAS Unavailable Unavailable APRYL, ANNITA ROSAS Unavailable Unavailable APRYL, ANNITA ROSAS Unavailable Unavailable APRYL, ANNITA ROSAS Unavailable Unavailable APRYL, ANNITA ROSAS Unavailable Unavailable APRYL, ANNITA ROSAS Unavailable Unavailable APRYL, ANNITA ROSAS Unavailable Unavailable APRYL, ANNITA ROSAS Unavailable Unavailable APRYL, ANNITA ROSAS Unavailable Unavailable Pleskach, Paula APPEALS REVIEWER VETERAN Unavailable Unavailable Pleskach, Paula APPEALS REVIEWER VETERAN Unavailable Unavailable Pleskach, Paula APPEALS REVIEWER VETERAN Unavailable Unavailable Pleskach, Paula APPEALS REVIEWER VETERAN Unavailable Unavailable Pleskach, Paula APPEALS REVIEWER VETERAN Unavailable Unavailable Pleskach, Paula APPEALS REVIEWER VETERAN Unavailable Unavailable Pleskach, Paula APPEALS REVIEWER VETERAN Unavailable Unavailable Pleskach, Paula APPEALS REVIEWER VETERAN Unavailable Unavailable Pleskach, Paula APPEALS REVIEWER VETERAN Unavailable Unavailable Pleskach, Paula APPEALS REVIEWER VETERAN Unavailable Unavailable Pleskach, Paula APPEALS REVIEWER VETERAN Unavailable Unavailable Pleskach, Paula APPEALS REVIEWER VETERAN Unavailable Unavailable Pleskach, Paula APPEALS REVIEWER VETERAN Unavailable Unavailable Pleskach, Paula APPEALS REVIEWER VETERAN Unavailable Unavailable Pleskach, Paula APPEALS REVIEWER VETERAN Unavailable Unavailable Pleskach, Paula APPEALS REVIEWER VETERAN Unavailable Unavailable Pleskach, Paula APPEALS REVIEWER VETERAN Unavailable Unavailable Pleskach, Paula APPEALS REVIEWER VETERAN Unavailable Unavailable Pleskach, Paula APPEALS REVIEWER VETERAN Unavailable Unavailable Pleskach, Paula APPEALS REVIEWER VETERAN Unavailable Unavailable Pleskach, Paula APPEALS REVIEWER VETERAN Unavailable Unavailable Pleskach, Paula APPEALS REVIEWER VETERAN Unavailable Unavailable Pleskach, Paula APPEALS REVIEWER VETERAN Unavailable Unavailable Pleskach, Paula APPEALS REVIEWER VETERAN Unavailable Unavailable Pleskach, Paula APPEALS REVIEWER VETERAN Unavailable Unavailable Pleskach, Paula APPEALS REVIEWER VETERAN Unavailable Unavailable Pleskach, Paula APPEALS REVIEWER VETERAN Unavailable Unavailable Pleskach, Paula APPEALS REVIEWER VETERAN Unavailable Unavailable Pleskach, Paula APPEALS REVIEWER VETERAN Unavailable Unavailable Pleskach, Paula APPEALS REVIEWER VETERAN Unavailable Unavailable Pleskach, Paula APPEALS REVIEWER VETERAN Unavailable Unavailable Pleskach, Paula APPEALS REVIEWER VETERAN Unavailable Unavailable Pleskach, Paula APPEALS REVIEWER VETERAN Unavailable Unavailable Pleskach, Paula APPEALS REVIEWER VETERAN Unavailable Unavailable Pleskach, Paula APPEALS REVIEWER VETERAN Unavailable Unavailable Pleskach, Paula APPEALS REVIEWER VETERAN Unavailable Unavailable Pleskach, Paula APPEALS REVIEWER VETERAN Unavailable Unavailable Pleskach, Paula APPEALS REVIEWER VETERAN Unavailable Unavailable Pleskach, Paula APPEALS REVIEWER VETERAN Unavailable Unavailable Pleskach, Paula APPEALS REVIEWER VETERAN Unavailable Unavailable Pleskach, Paula APPEALS REVIEWER VETERAN Unavailable Unavailable Pleskach, Paula APPEALS REVIEWER VETERAN Unavailable Unavailable Pleskach, Paula APPEALS REVIEWER VETERAN Unavailable Unavailable Pleskach, Paula APPEALS REVIEWER VETERAN Unavailable Unavailable Maddy Garcia MD Unavailable Unavailable [...] Maddy Rowley MD Unavailable Unavailable Jose, Maddy Benitezen MD Unavailable Unavailable Maddy Garcia MD Unavailable [...] is protected by Article 27-F of the [facility] Public Health law. If you continue you may have access to information: Regarding HIV / AIDS; Provided by facilities licensed or operated by the [facility] Office of Mental Health; or Provided by the [facility] Office for People With Developmental Disabilities. If such information is present, then the following [facility] mandated warning applies: This information has been [...] Description Data Source(s) Unknown Unknown Problem [facility] ([facility]) Brain stem mother Unknown Unknown Problem [facility] ([facility] Unknown Unknown Problem [facility] mother Encounters Encounter Providers Location Date Indications Data Source(s ) Outpatient Attender: HERNAN Dasilva/[place] 06/06/2021 02:30:00 PM EDT [facility] ([facility], ) Outpatient Attender: Paula Friedman [facility] Main Office 06/06/2021 0 9:45:00 AM EDT [facility] ([facility] Outpatient Attender: Paula Friedman [facility] Main Office 05/15/2021 0 1:30:00 PM EDT [facility] ([facility] Outpatient Attender: HERNAN Slaughter/Rein norma 04/10/2021 11:30:00 AM EDT [facility] ([facility], ) Outpatient Attender: HERNAN Slaughter/[place] 03/07/2021 03:30:00 PM EDT [facility] Out[facility] Attender: Halley Garcia MD Main Office 03/07/2021 09:30:0 0 AM EDT [facility] ([facility] Outpatient Attender: Fay GREWAL.ETHAN-URI.ETHAN 2020 09:20:56 AM EDT - 12/27/2020 10:07:06 AM EDT [facility] Outpatient Attender: VEL PALOMO MD [id number] 12/05 12:00:00 AM EDT - 12/05/2020 02:11:20 PM EDT [facility] Outpatient Attender: Rhona Aguila MD 0 11/09/2020 02:10:34 PM EDT - 11/09/2020 02:43:56 PM EDT [facility] ([facility]) Outpatient Referrer: VEL PALOMO MD 10/25/2020 12: 00:00 AM EST Crohn's disease of small intestine with intestinal obstruction [facility] Crohn's disease of small intestine with intestinal obstruction Outpatient Attender: HERNAN Dasilva/Michelle/Satya/Rein dl 09/13/2020 10:30:00 AM EST [facility] ([facility]) Outpatient Attender: VEL PALOMO MD [id number] 08/31 12:00:00 AM EST - 08/31/2020 03:39:49 PM EST Crohn's disease of small intestine with intestinal obstruction [facility] Crohn's disease of small intestine with intestinal obstruction Outpatient Attender: Britany Napoles PA-C Main Office 08/30/2020 01:45:00 PM EST [facility] ([facility] Outpatient Attender: Fay LUCIANO-SJP.ETHAN 2020 12:00:00 AM EST - 08/23/2020 02:50:36 PM EST [facility] Outpatient Attender: HERNAN Dasilva/Michelle/Satya/Rein dl 06/21/2020 09:30:00 AM EST [facility] ([facility] Outpatient Attender: Fay Oakes jennie: ANNITA ROBBINSeferrer: Fay GASPARETHAN-SJP.ETHAN 06/14/2020 12:00:00 AM EDT - 06/14/2020 04:37:04 PM EDT [facility] Outpatient Attender: Britany Napoles PA-C Main Office 05/31/2020 02:00:00 PM EDT [facility] ([facility] Outpatient Attender: VEL PALOMO MDReferrer: Halley Dhaliwal ms, MD [id number] 05/25/2020 12:00:00 AM EDT - 05/25/2020 04:01:02 PM EDT Crohn's disease of small intestine with intestinal obstruction [facility] Crohn's disease of small intestine with intestinal obstruction Outpatient Referrer: VEL PALOMO MD 05/24/2020 02: 16:00 PM EDT Second degree hemorrhoids [facility] Second degree hemorrhoids Outpatient Attender: VEL PALOMO MD 05/24/2020 12:00:00 AM T [facility] Outpatient Attender: Fay Leos RNPReferrer: Fay LUCIANO-SJCrystal.ETHAN 05/10/2020 02:28:19 PM EDT - 05/10/2020 03:21:12 PM EDT [facility] Outpatient Attender: VEL PALOMO MD 04/27/2020 12:00:00 AM EDT [facility] Outpatient SJP.ETHAN-SJCrystal.ETHAN 04/26/2020 07:53:46 AM EDT [facility] Outpatient Attender: ANNITA LUCIANO-SJP.ETHAN 0 12:00:00 AM EDT - 04/19/2020 02:53:57 PM EDT [facility] Immunizations Vaccine Date Status Description Data Source(s) pneumococcal polysaccharide PPV23 05/08/2021 01:40:00 PM EDT levi VINSON ([facility] New in 2012. IIV4 05/08/2021 01:40:00 PM EDT harriet VINSON ([facility] This CVX code [...] 12:00:00 AM E DT ORAL active [facility] ([facility]) 100 mg 05/22/2021 12:00:00 AM [...] 04/10/2021 12:00:00 AM EDT ORAL completed [facility] ([facility], ) 50 mg 03/08/2021 12:00:00 AM EDT [...] EVERY DAY FOR CROHNS DISEASE SOLD: 03/09/2021 [facility] Budesonide 3 MG Delayed Release Oral Capsule BUDESONIDE 03/08/2021 12:00:00 AM EDT capsule,delayed,extend.release 90 T NAMITA THREE CAPSULES BY MOUTH EVERY DAY FOR CROHNS DISEASE TAKE THREE CAPSULES BY MOUTH EVERY DAY FOR CROHNS DISE ASE SOLD: 04/16/2021 [facility] dapagliflozin 5 MG Oral Tablet [Farxiga] Farxiga [...] B-12 03/07/2021 12:00:00 AM EDT active [facility] ([facility], ) Azathioprine 50 MG Oral Tablet Azathioprine 03/07/2021 12:00:00 AM EDT completed [facility] ([facility], ) 4 mg 03/03/2021 12:00:00 AM [...] Drugs gadobutrol (GADAVIST) contrast injection 7.5 mL [id number] 10/25/2020 04:15:00 PM EST 0.1 mL/kg Intravenous completed 7.5 mL (rounded from 7.71 mL = 0.1 mL/kg 77.1 kg), Intravenous, 1 TIME IMAGING, Fri10/25/20 at 1615, For 1 dose, Imaging Protocol
Do not mix or administer in the same IV line with other medic ations.
[facility] Medication administered onsite barium (VOLUMEN) 0.1 % suspension 450 mL [id number] 10/25/2020 02 :15:00 PM EST 450 mL Oral completed 450 mL, Or al, 1 TIME IMAGING, Fri10/25/20 at 1415, For 1 dose, Imaging Protocol [facility] Medication administered onsite barium (VOLUMEN) 0.1 % suspension 450 mL [id number] 10/25/2020 02 :15:00 PM EST 450 mL Oral completed 450 mL, Or al, 1 TIME IMAGING, 10/25/20 at 1415, For 1 dose, Imaging Protocol [facility] Medication administered onsite barium (VOLUMEN) 0.1 % suspension 450 mL [id number] 10/25/2020 02 :15:00 PM EST 450 mL Oral completed 450 mL, Or al, 1 TIME IMAGING, 10/25/20 at 1415, For 1 dose [facility] Medication administered onsite 4 mg 10/24/2020 12:00:00 [...] 2 diabetes mellitus without complication, unspecified whether senior living insulin useHypertension, unspecified type Take 1 tablet (20 mg total) by mouth daily [facility] Type 2 diabetes mellitus without complic ation, without long-term current use of insulin Type 2 diabetes mellitus without complic ation, unspecified whether terminal system operator insulin use Hypertension, unspecified type Amlodipine 2.5 MG Oral Tablet amLODIPine (NORVASC) 2.5 MG tablet amLODIPine (NORVASC) 2.5 MG tablet 08/17/2020 12:00:00 AM EST 2.5 mg Oral aborted Take 2.5 mg by mouth daily [facility] 25 mg 07/25/2020 12:00:00 AM EST tablet [...] 2 diabetes mellitus without complication, unspecified whether terminal system operator insulin use TAKE ONE TABLET BY MOUTH TWICE A DAY [facility] Hypertension, unspecified type Type 2 diabetes mellitus without complic ation, unspecified whether senior living insulin use 4 mg 07/20/2020 12:00:00 AM [...] 2 diabetes mellitus without complication, unspecified whether terminal system operator insulin useHypertension, unspecified type Take 1 tablet (20 mg total) by mouth 2 (two) times a day [facility] Type 2 diabetes mellitus without complic ation, without long-term current use of insulin Type 2 diabetes mellitus without complic ation, unspecified whether senior living insulin use Hypertension, unspecified type 4 mg [...] capsule 06/12/2020 12:00 :00 AM EDT aborted [facility] Budesonide 3 MG Delayed Release [...] active Take 100 mg by mouth daily [facility] sitagliptin 100 MG Oral Tablet [Januvia] Januvia 05/31/2020 12:00: 00 AM EDT ORAL active [facility] ([facility] Amlodipine 2.5 MG Oral Tablet amLODIPine (NORVASC) 2.5 MG tablet amLODIPine (NORVASC) 2.5 MG tablet 05/30/2020 12:00:00 AM EDT 2.5 mg Oral aborted Take 2.5 mg by mouth daily [facility] 10 mg 05/29/2020 12:00:00 AM EDT tablet [...] NEEDED FOR PAIN MAXIMUM DAILY DOSE 6 [facility] mercaptopurine 50 MG Oral Tablet Mercaptopurine 50 MG Oral Tablet (PURINETHOL) Mercaptopurine 50 MG Oral Tablet (PURINETHOL) 05/25/2020 12:00:00 AM EDT 50 mg Oral aborted Take 1 tablet by mouth d [facility] 4 mg 04/26/2020 12:00:00 AM EDT tablet [...] M OUTH THREE TIMES A DAY NEEDED [facility] 25 mg 02/28/2020 12:00:00 AM EDT tablet 90 TAKE ONE TABLET BY MOUTH EVERY DAY TAKE ONE TABLET BY MOUTH EVERY DAY SOLD: 08/20/2020 [facility] atorvastatin 10 MG Oral Tablet ATORVASTATIN CALCIUM 02/28/2020 1 2:00:00 AM EDT tablet 90 TAKE ONE TABLET BY MOUTH EVERY D AY TAKE ONE TABLET BY MOUTH EVERY DAY SOLD: 06/01/2020 [facility] 300 mg 02/28/2020 12:00:00 AM [...] MOUTH THREE TIMES A DAY SOLD: 11/13/2020 [facility] 25 mg 02/28/2020 12:00:00 AM EDT tablet 90 TAKE ONE TABLET BY MOUTH EVERY DAY TAKE ONE TABLET BY MOUTH EVERY DAY SOLD: 06/01/2020 [facility] atorvastatin 10 MG Oral Tablet ATORVASTATIN CALCIUM 02/28/2020 1 2:00:00 AM EDT tablet 90 TAKE ONE TABLET BY MOUTH EVERY D AY TAKE ONE TABLET BY MOUTH EVERY DAY SOLD: 08/20/2020 [facility] Amlodipine 2.5 MG Oral Tablet AMLODIPINE BESYLATE 02/28/2020 12: 00:00 AM EDT tablet 90 TAKE ONE TABLET BY MOUTH EVERY D AY TAKE ONE TABLET BY MOUTH EVERY DAY SOLD: 11/13/2020 [facility] atorvastatin 10 MG Oral Tablet [...] 2 (two) times a day with meals [facility] BLOOD SUGAR DIAGNOSTIC 02/24/2020 12:00:00 [...] TABLET BY MOUTH EVERY DAY SOLD: 05/09/2020 [facility] Enalapril Maleate 20 MG Oral Tablet enalapril (VASOTEC ) 20 MG tablet enalapril (VASOTEC) 20 MG tablet 02/02/2020 12:00:00 AM EDT 20 mg Oral aborted Type 2 diabetes mellitus without complication, unspecified whether terminal system operator insulin useHypertension, unspecified type Take 1 tablet (20 mg total ) by mouth daily [facility] Type 2 diabetes mellitus without complic ation, unspecified whether senior living insulin use Hypertension, unspecified type BLOOD SUGAR DIAGNOSTIC 01/31/2020 12:00:00 AM EDT strip 100 USE TO CHECK BLOOD SUGAR THREE TIMES A DAY USE TO CHECK BLOOD SUGAR THREE TIMES A DAY SOLD: 05/05/2020 [facility] BLOOD SUGAR DIAGNOSTIC 08/07/2019 12:00:00 AM EST strip 100 DIRECTED TO CHECK BLOOD SUGAR DAILY DIRECTED TO CHECK BLOOD SUGAR DAILY SOLD: 05/29/2020 [facility] Insurance Providers Payer name Policy type / Coverage type Policy ID Covered alliance party ID Covered alliance party's relationship to betts Policy Betts Plan Information [place] PPO 302/307 [id number] SP [id number] [facility] COMMUNITY PLAN MCDO [id number] SP [id number] [facility] COMMUNITY PLAN MCDO [id number] SP [id number] [facility] COMMUNITY PLAN MCDHMO [id number] SP [id number] [facility] COMMUNITY PLAN MCDO [id number] SP [id number] [facility] MEDICARE [id number] Lilian [id number] [facility] MEDICARE [id number] xxxxxxxxx [id number] [facility] MEDICARE [id number] Lilian [id number] UHC UNITED MEDICARE COMPLETE G [id number] Self [id number] [place]: [place] [employer] [id number] Self [id number] [place] B [id number] Self [id number] ANSI-Medicaid [id number] Medicaid [place] Med[place] Part B [id number] Self [id number] [facility] Health Maintenance Organization (HMO) [id number] Self [id number] [facility] COMMUNITY PLAN [facility] [id number] [place] Medigap Part B [id number] .[id number] Self [id number] [facility] Health Maintenance Organization (HMO) [id number] Self [id number] [facility] Community Plan Commercial [id number] [place] Medigap Part B [id number] .[id number] Self [id number] [facility] Health Maintenance Organization (HMO) [id number] Self [id number] [facility] Community Plan Commercial [id number] Self [id number] [facility] [id number] S [id number] Medicaid [place] Med[place] [id number] .[id number] Self [id number] [facility] Health Maintenance Organization (HMO) [id number] Self [id number] [facility] Community Plan Commercial [id number] Self [id number] [facility] Health Maintenance Organization (O) [id number] Self [id number] [place] [id number] [id number] .[id number] Self [id number] [facility] Health Maintenance Organization (O) [id number] Self [id number] [facility] Community Plan Commercial [id number] [id number] Self [id number] [facility] Commercial [id number] [id number] Self [id number] [place] [id number] [id number] .[id number] Self [id number] [facility] Health Maintenance Organization (O) [id number] Self [id number] [facility] Community Plan Commercial [id number] [id number] Self [id number] MEDICAID M [id number] S [id number] [place] [id number] [id number] .8646.08061.0 Self [id number] [facility] Health Maintenance Organization (O) [id number] Self [id number] [facility] Community Plan Commercial [id number] 7.99.2809.14863.0 Self [id number] [place] [id number] 2.16.840.1.696291.3.227.99 .8646.86866.0 Self [id number] [facility] Health Maintenance Organization (HMO) [id number] Self [id number] [facility] Community [facility] Commercial [id number] 7.99.2809.22362.0 Self [id number] [place] [id number] 2.16840.1.115230.3.227.99 .[id number] Self [id number] [facility] Health Maintenance Organization (O) [id number] Self [id number] [place] [id number] 2.16840.1.449827.3.227.99 .8646.11767.0 Self [id number] [facility] Health Maintenance Organization (O) [id number].8646.22078.0 Self [id number] [facility] Health Maintenance Organization (HMO) [id number] 2.16840.1.884852.3.227.99.1767.69204.0 Self [id number] [place] [id number] 2.16840.1.517067.3.227.99 .[id number] Self [id number] [facility] Health Maintenance Organization (O) [id number] 2.16840.1.081012.3.227.99.8646.82067.0 Self [id number] [place] [id number] 2.16840.1.279519.3.227.99 .8646.36512.0 Self [id number] [facility] Health Maintenance Organization (O) [id number] [id number] Self [id number] [facility] Community Plan Commercial [id number] 2.16840.1.012378.3.22 7.99.2809.30553.0 Self [id number] [facility] Health Maintenance Organization (O) [id number] 2.16840.1.262554.3.227.99.1767.23515.0 Self [id number] [facility] Health Maintenance Organization (O) [id number] 2.16840.1.076081.3.227.99.1767.01118.0 Self [id number] [place] Part [place] [id number] 2.840.1.362574.3.227.99 .8646.57348.0 Self [id number] [facility] Health Maintenance Organization (HMO) [id number] Self [id number] [facility] Community Plan Commercial [id number] 7.99.2809.05625.0 Self [id number] [place] [id number] 2.16840.1.584158.3.227.99 .[id number] Self [id number] [facility] Health Maintenance Organization (O) [id number] Self [id number] [facility] COMMUNITY PLAN MCDO [id number] SP [id number] [facility] COMMUNITY PLAN MCDO [id number] SP [id number] [place] Part B [id number] [id number] [id number] Self [id number] [facility] Health Maintenance Organization (HMO) [id number] Self [id number] Medicaid [place] Medigap Part B [id number] Self [id number] [facility] Health Maintenance Organization (HMO) [id number] Self [id number] MEDICAID [id number] SP [id number] Medicaid [place] Medicaid [id number] Self BS [facility] Health Maintenance Organization (HMO) [id number] Self [facility] [id number] SP [id number] MEDICAID MEDICAID [id number] Self [place] MEDICAID UNHC COMMUNITY PLAN [facility] [id number] SP [id number] [place] [id number] Self UNITED HEALTHCARE(MCAID) O [id number] S [id number] [facility] Community Plan Commercial [id number] Self UNITED HEALTHCARE(MCAID) O [id number] S [id number] SELF PAY ONLY UNAVAILABLE SP UNAV AILABLE Medicaid [place] Medicaid [id number] Self MEDICARE COMPLETE [id number] SP [id number] MEDICARE COMPLETE-[facility] O [id number] S [id number] MEDICARE [id number] SP [id number] [facility] Medicare Commercial [id number] Self [id number] [facility] [id number] SP [id number] [facility] Medicare Commercial [id number] Self [id number] MEDICARE COMPLETE [id number] 97 [id number] ANSI-Medicare Part B [id number] ANSI-Medicaid [id number] ANS-Medicare Part B [id number] Problems, Conditions, and Diagnoses Code Display Name Description Problem Type Effective Dates Data Source(s) K50.90 Crohn's disease, unspecified, without co mplications Crohn's disease, unspecified, without co Diagnosis 12/27/2020 09:20:56 AM EDT [facility] E11.9 Type 2 diabetes mellitus without complic ations Type 2 diabetes mellitus without complic Diagnosis 12/27/2020 09:20:56 AM EDT [facility] R06.02 Shortness of breath Shortness of breath Diagnosis 0 12/27/2020 09:20:56 AM EDT [facility] I10 Essential (primary) hypertension Essential (primary) h ypertension Diagnosis 12/27/2020 09:20:56 AM EDT [facility] K21.9 Gastro-esophageal reflux disease without esophagitis Gastro-esophageal reflux disease without Diagnosis 12/27/2020 09:20:56 AM EDT [facility] R07.9 Chest pain, unspecified Chest pain, unspecified Diagno sis 12/27/2020 09:20:56 AM EDT [facility] M19.90 Unspecified osteoarthritis, unspecified site Unspecified osteoarthritis, unspecified Diagnosis 12/27/2020 09:20:56 AM EDT [facility] E78.2 Mixed hyperlipidemia Mixed hyperlipidemia Diagnosis 12/27/2020 09:20:56 AM EDT [facility] K57.30 Diverticulosis of large inte jessica without perforation or abscess without bleeding Diverticulosis of large intestine withou t perforation or abscess without bleeding Diagnosis 05/24/2020 02:16:00 PM EDT [facility] K50.00 Crohn's disease of small intestine witho ut complications Crohn's disease of small intestine without complications Diagnosis 05/24/2020 02:16:00 PM [facility] 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 OFFICE OUTPATIENT VISIT 25 MINUTES 04/10/2021 12:00:00 AM EDT [facility] ([facility] ) Diabetic Foot Exam 03/07/2021 12:00:00 AM EDT [facility] ([facility] OFFICE OUTPATIENT VISIT 25 MINUTES 03/07/2021 12:00:00 AM EDT [facility] ([facility] OFFICE OUTPATIENT VISIT 25 MINUTES 03/07/2021 12:00:00 AM EDT [facility] ([facility] ) LIPID PANEL <td>LIPID PANEL</td><td>Rout ine</td><td>12/27/2020 4:22 PM EDT</td><td> Mixed hyperlipidemia Hypertension, unspecified type Shortness of breath</td><td> </td> 12/27/2020 04:22:00 PM EDT Shortness of breathHypertension, unspecified typeMixed hyperlipidemia [facility] Shortness of breath Hypertension, unspecified type Mixed hyperlipidemia COMPREHENSIVE METABOLIC PANEL <td>COMPREHENSIVE METABO LIC PANEL</td><td>Routine</td><td>12/27/2020 4:22 PM EDT</td><td> Hypertension, unspecified type Shortness of breath</td><td> </td> 12/27/2020 04:22:00 PM EDT Shortness of breathHypertension, unspecified type [facility] Shortness of breath Hypertension, unspecified type OFFICE OUTPATIENT VISIT 25 MINUTES 09/13/2020 12:00:00 AM EST [facility] ([facility] ) Colonoscopy 05/24/2020 12:00:00 AM EDT Shanna VILLA ([facility] no polyps, repeat 2020 Document: 7 - Colonoscopy Screening colonoscopy (procedure) <td>COLONOSCOPY</td> <td></td><td>05/24/2020 12:00 AM EDT</td><td></td><td></td> 05/24/2020 12:00:00 AM EDT [facility] LIPID PANEL <td>LIPID PANEL</td><td>Rout ine</td><td>04/26/2020</td><td></td><td> </td> 04/26/2020 12:00:00 AM EDT [facility] Mammogram 04/21/2020 12:00:00 AM EDT [facility] ([facility] Xray: 11/07/17 - Breast, Mammography, Bi lateral Results ID Date Data Source [id number] 06/08/2021 03:41:00 PM EDT [facility] ([facility] [...] % 24.0-44.0 [facility] ([facility] [place] % 8.9 % 2.0-8.0 [facility] Eos % 1.1 % 0.0-3.0 [facility] ([facility] Baso % 0.6 % 0.0-1.0 [facility] ([facility] Nucleated Red Blood Cell % 0.0 % 0-0 [facility] ([facility] Neutrophils # 4.7 10 1.5-8.5 [facility] ([facility] Immature Granulocyte % 0.6 % 0-3.0 [facility] ([facility] [place] # 0.6 10 0.0-0.8 [facility] ([facility] Lymph # 1.1 10 1.5-5.0 [facility] Baso # 0.0 10 0.0-0.2 [facility] ([facility] Eos # 0.1 10 0.0-0.5 [facility] ID Date Data Source [id number] 06/08/2021 03:41:00 PM EDT [facility] ([facility] [...] Little GFR Left</content>
<content>ESRD GFR <15 on J2EE JAVA DEVELOPER</content>
<content></content> Sodium Level 140 meq/L 136-145 [facility] [...] [facility] ID Date Data Source [id number] 06/08/2021 03:41:00 PM EDT [facility] ([facility] Name Value Range Interpretation Code Description Data Ana M rce(s) Supporting Document(s) Erythrocyte sedimentation rate by 2H Westergren method 16 mm/hr 0-3 0 [facility] ([facility] ID Date Data Source [id number] 05/23/2021 01:16:00 PM EDT [facility] ([facility] [...] Little GFR Left</content>
<content>ESRD GFR <15 on J2EE JAVA DEVELOPER</content>
<content></content> Creatinine For GFR 0.80 mg/dL 0.55-1.30 [...] [facility] ID Date Data Source [id number] 05/23/2021 01:16:00 PM EDT [facility] ([facility] Name Value Range Interpretation Code Description Data Ana M rce(s) Supporting Document(s) White Blood Count 5.9 10 4.0-10.0 [facility] ([facility] Red Blood Count 3.26 10 4.00-5.40 [facility] ([facility] Hemoglobin 10.1 g/dL 12.0-15.5 [facility] ([facility] Mean Corpuscular Volume 93.9 fl [...] % 24.0-44.0 [facility] ([facility] [place] % 7.4 % 2.0-8.0 [facility] ([facility] mc [...] 10 1.5-5.0 [facility] ([facility] [place] # 0.4 10 0.0-0.8 [facility] ([facility] Eos # 0.1 10 0.0-0.5 [facility] ([facility] Baso # 0.0 10 0.0-0.2 [facility] ([facility] ID Date Data Source [id number] 05/23/2021 01:16:00 PM EDT [facility] ([facility] Name Value Range Interpretation Code Description Data Ana M rce(s) Supporting Document(s) Hemoglobin A1c/Hemoglobin.total in Blood 6.1 % [facility] ([facility] <content>REFERENCE RANGES:</content><br/ ><content></content>
<content><=5.6% NORMAL</content>
<content>5.7-6.4% SUGGESTS IMPAIRED GLUCOSE METABOLISM/PREDIABETIC</content>
<content>>= 6.5% ABNORMAL</content>
<content></content> Estimated Average Glucose 128 mg/dL 60-110 [facility] ([facility] ID Date Data Source [id number] 05/23/2021 01:15:00 PM EDT [facility] ([facility]) Name Value Range Interpretation Code Description Data Ana M rce(s) Supporting Document(s) Glucose, Fasting 119 mg/dL 70-100 Above high normal M [facility] ([facility]) Creatinine For GFR 0.80 mg/dL 0.55-1.30 Normal (applies to non -numeric results) [facility] ([facility]) Blood Urea Nitrogen 18 mg/dL 7-18 Normal (applies to non-nume lionel results) [facility] ([facility]) Glomerular Filtration Rate Laboratory test result Normal (applies to non- numeric results) [facility]) <content>Units are mL/min/1.73 m2</content>
<content></content>
<content>Chronic Kidney Disease Staging per NKF:</content>
<content></content>
<content>Stage I & II GFR >=60 Normal to Mildly Decreased</content>
<content>Stage III GFR 30- 59 Moderately Decreased</content>
<content>Stage IV GFR 15-29 Severely Decreased</content>
<content>Stage V GFR <15 Very Little GFR Left</content>
<content>ESRD GFR <15 on J2EE JAVA DEVELOPER</content>
<content></content> Sodium Level 138 meq/L 136-145 Normal (applies to non-numeric res ults) [facility] ([facility]) Potassium Serum 4.8 meq/L 3.5-5.1 Normal (applies to non-numeric results) [facility] ([facility]) Chloride Level 102 meq/L 98-107 Normal (applies to non-numeric r esults) [facility]) Carbon Dioxide Level 31 meq/L 21-32 Normal (applies to non-num lorenzo results) [facility]) Anion Gap 5 meq/L 8-16 Below low normal [facility] ( [facility]) Ast/Sgot 20 U/L 7-37 Normal (applies to non-numeric resul ts) [facility] ([facility]) Calcium Level 9.7 mg/dL 8.8-10.2 Normal (applies to non-numeric re sults) [facility] ([facility]) Alt/SGPT 26 U/L 12-78 Normal (applies to non-numeric resul ts) [facility] ([facility]) Alkaline Phosphatase 66 U/L 45-117 Normal (applies to non-num lorenzo results) [facility] ([facility]) Total Protein 6.3 GM/DL 6.4-8.2 Below low normal [facility] ([facility]) Bilirubin,Total 0.6 mg/dL 0.2-1.0 Normal (applies to non-numeric results) [facility] ([facility]) Albumin 3.4 GM/DL 3.2-5.2 Normal (applies to non-numeric resul ts) [facility] ([facility]) Albumin/Globulin Ratio 1.2 1.2-2.2 Normal (applies to non-n umeric results) [facility] ([facility]) ID Date Data Source [id number] 05/23/2021 01:15:00 PM EDT [facility] ([facility]) Name Value Range Interpretation Code Description Data Ana M rce(s) Supporting Document(s) White Blood Count 5.8 10 4.0-10.0 Normal (applies to non-numeri c results) [facility] ([facility]) Red Blood Count 3.26 10 4.00-5.40 Below low normal [facility] ([facility]) Hemoglobin 10.1 g/dL 12.0-15.5 Below low normal [facility] ( [facility]) Hematocrit 30.7 % 36.0-47.0 Below low normal [facility] ( [facility]) Mean Corpuscular Volume 94.2 fl 80.0-96.0 Normal ( applies to non-numeric results) [facility] ([facility]) Mean Corpuscular Hemoglobin 31.0 pg 27.0-33.0 Norm al (applies to non-numeric results) [facility] ([facility] ) Mean Corpuscular HGB Conc 32.9 g/dL 32.0-36.5 Normal (applies to non-numeric results) [facility] ([facility]) Platelet Count, Automated 304 10 150-450 Normal (applies to non-numeric results) [facility] ([facility]) Red Cell Distribution Width 16.0 % 11.5-14.5 Above high normal [facility] ([facility]) [place] % 7.8 % 2.0-8.0 Normal (applies to non-numeric resul ts) [facility] ([facility]) Neutrophils % 75.2 % 36.0-66.0 Above high normal [facility] ([facility]) Lymph % 14.7 % 24.0-44.0 Below low normal [facility] ( [facility]) Eos % 0.7 % 0.0-3.0 Normal (applies to non-numeric resul ts) [facility] ([facility]) Baso % 0.7 % 0.0-1.0 Normal (applies to non-numeric resul ts) [facility] ([facility]) Immature Granulocyte % 0.9 % 0-3.0 Normal (applies to non-n umeric results) [facility] ([facility]) Nucleated Red Blood Cell % 0.0 % 0-0 Normal (applies to n on-numeric results) [facility] ([facility]) [place] # 0.5 10 0.0-0.8 Normal (applies to non-numeric resul ts) [facility] ([facility]) Lymph # 0.9 10 1.5-5.0 Below low normal [facility] ( [facility]) Neutrophils # 4.3 10 1.5-8.5 Normal (applies to non-numeric re sults) [facility] ([facility]) Eos # 0.0 10 0.0-0.5 Normal (applies to non-numeric resul ts) [facility] ([facility]) Baso # 0.0 10 0.0-0.2 Normal (applies to non-numeric resul ts) [facility] ([facility]) ID Date Data Source [id number] 05/23/2021 01:15:00 PM EDT [facility]) Name Value Range Interpretation Code Description Data Ana M rce(s) Supporting Document(s) Vitamin B12 Level 643 pg/mL Normal (applies to non-numeri c results) [facility] ([facility]) VITAMIN B12 NORMAL RANGE NORMAL 247 - 911 PG/ML INDETERMINATE 211 - 246 PG/ML DEFICIENT LESS THAN 211 PG/ML Folate 17.2 ng/mL Normal (applies to non-numeric resul ts) [facility] ([facility]) FOLATE NORMAL RANGE NORMAL GREATER THAN 5.4 NG/ML INDETERMINATE 3.4-5.4 NG/ML DEFICIENT LESS THAN 3.4 NG/ML ID Date Data Source [id number] 05/23/2021 01:15:00 PM EDT [facility] ([facility]) Name Value Range Interpretation Code Description Data Ana M rce(s) Supporting Document(s) Iron (Fe) 54 ug/dL 50-170 Normal (applies to non-numeric resul ts) [facility] ([facility]) Total Iron Binding Capacity 403 ug/dL 250-450 Norm al (applies to non-numeric results) [facility] ([facility]) Percent Saturation 13.4 % 13.2-45.0 Normal (applies to non-numer ic results) [facility] ([facility]) ID Date Data Source [id number] 05/23/2021 01:15:00 PM EDT [facility] ([facility] Name Value Range [...] % 0.0-3.0 [facility] ([facility] [place] % 7.8 % 2.0-8.0 [facility] ([facility] [...] 10 0.0-0.5 [facility] ([facility] [place] # 0.5 10 0.0-0.8 [facility] ([facility] ID Date Data Source [id number] 05/23/2021 01:15:00 PM EDT [facility] ([facility] [...] Little GFR Left</content>
<content>ESRD GFR <15 on J2EE JAVA DEVELOPER</content>
<content></content> Sodium Level 138 meq/L 136-145 [facility] ([facility] Potassium Serum 4.8 meq/L 3.5-5.1 [facility] ([facility] Carbon Dioxide Level 31 meq/L [...] [facility] ID Date Data Source [id number] 05/23/2021 01:15:00 PM EDT [facility] ([facility] Name Value Range Interpretation Code Description Data Ana M rce(s) Supporting Document(s) Total Iron Binding Capacity 403 ug/dL 250-450 [facility] ([facility] Iron (Fe) 54 ug/dL 50-170 [facility] ([facility] Percent Saturation 13.4 % 13.2-45.0 [facility] ([facility] ID Date Data Source [id number] 05/23/2021 01:15:00 PM EDT [facility] ([facility] [...] THAN 3.4 NG/ML ID Date Data Source [id number] 05/07/2021 11:51:00 PM EDT [facility] Name Value Range Interpretation Code Description [facility](s) SARS coronavirus 2 RNA [Presence] in Res piratory specimen by ION with probe detection NEGATIVE [facility] This lab was ordered by [facility] a nd reported by [facility]. ID Date Data Source [id number] 05/07/2021 09:03:00 PM EDT [facility] ([facility] Name Value Range Interpretation Code Description Data [facility] Supporting Document(s) Appearance, Urine RFX Laboratory test result [facility] ([facility] PH,Urine RFX 8.0 units 5.0-9.0 [facility] ([facility] Color, Urine RFX Laboratory test result [facility] ([facility] Specific [place] Ur Auto RFX 1.048 1.002-1.035 [facility] ([facility] Protein, Urine [...] [facility] ID Date Data Source [id number] 05/07/2021 06:37:00 PM EDT [facility] ([facility] [...] [facility] ID Date Data Source [id number] 05/07/2021 06:09:00 PM EDT [facility] ([facility] Name Value Range Interpretation Code Description Data Ana M rce(s) Supporting Document(s) aPTT in Platelet poor plasma by Coagulation assay 20.9 s 25.9-37. 0 [facility] ([facility] ID Date Data Source [id number] 05/07/2021 06:09:00 PM EDT [facility] ([facility] [...] % 24.0-44.0 [facility] ([facility] [place] % 5.5 % 2.0-8.0 [facility] ([facility] mc [...] 10 1.5-5.0 [facility] ([facility] [place] # 0.4 10 0.0-0.8 [facility] ([facility] Eos # 0.1 10 0.0-0.5 [facility] ([facility] Baso # 0.0 10 0.0-0.2 [facility] ([facility] ID Date Data Source [id number] 05/07/2021 06:09:00 PM EDT [facility] ([facility] [...] MYOCARDIAL INFARCTION 2.5-3.5 ID Date Data Source [id number] 05/07/2021 06:09:00 PM EDT [facility] ([facility] Name Value Range Interpretation Code Description Data Naa M rce(s) Supporting Document(s) Ast/Sgot 13 U/L 7-37 [facility] ([facility] Alt/SGPT 15 U/L 12-78 [facility] ([facility] Bilirubin,Total 0.7 mg/dL 0.2-1.0 [facility] ([facility] Alkaline Phosphatase 66 U/L 45-117 [facility] ([facility] Total Protein 6.0 GM/DL 6.4-8.2 [facility] ([facility] Bilirubin,Direct 0.2 mg/dL 0.0-0.2 [facility] ([facility] Albumin 3.3 GM/DL 3.2-5.2 [facility] ([facility] Albumin/Globulin Ratio 1.2 1.2-2.2 [facility] ([facility] ID Date Data Source [id number] 05/07/2021 06:09:00 PM EDT [facility] ([facility] [...] Lactate Rule: Y ID Date Data Source [id number] 04/07/2021 11:09:00 AM EDT [facility] ([facility]) Name Value Range Interpretation Code Description Data Ana M rce(s) Supporting Document(s) Blood Urea Nitrogen 14 mg/dL 7-18 Normal (applies to non-nume lionel results) [facility] ([facility] ) Glucose, Fasting 111 mg/dL 70-100 Above high normal [facility] ([facility]) Creatinine For GFR 0.75 mg/dL 0.55-1.30 Normal (applies to non -numeric results) [facility] ([facility]) Sodium Level 140 meq/L 136-145 Normal (applies to non-numeric res ults) [facility] ([facility]) Glomerular Filtration Rate Laboratory test result Normal (applies to non- numeric results) [facility] ([facility]) <content>Units are mL/min/1.73 m2</content>
<content></content>
<content>Chronic Kidney Disease Staging per NKF:</content>
<content></content>
<content>Stage I & II GFR >=60 Normal to Mildly Decreased</content>
<content>Stage III GFR 30- 59 Moderately Decreased</content>
<content>Stage IV GFR 15-29 Severely Decreased</content>
<content>Stage V GFR <15 Very Little GFR Left</content>
<content>ESRD GFR <15 on J2EE JAVA DEVELOPER</content>
<content></content> Potassium Serum 4.1 meq/L 3.5-5.1 Normal (applies to non-numeric results) [facility] ([facility], ) Chloride Level 104 meq/L 98-107 Normal (applies to non-numeric r esults) [facility] ([facility], ) Carbon Dioxide Level 31 meq/L 21-32 Normal (applies to non-num lorenzo results) [facility] ([facility], ) Anion Gap 5 meq/L 8-16 Below low normal [facility] ( [facility] ) Calcium Level 9.3 mg/dL 8.8-10.2 Normal (applies to non-numeric re sults) [facility] ([facility], ) Ast/Sgot 20 U/L 7-37 Normal (applies to non-numeric resul ts) [facility] ([facility], ) Alkaline Phosphatase 66 U/L 45-117 Normal (applies to non-num lorenzo results) [facility] ([facility], ) Alt/SGPT 19 U/L 12-78 Normal (applies to non-numeric resul ts) [facility] ([facility], ) Bilirubin,Total 0.7 mg/dL 0.2-1.0 Normal (applies to non-numeric results) [facility] ([facility] ) Total Protein 6.0 GM/DL 6.4-8.2 Below low normal [facility] ([facility], ) Albumin 3.4 GM/DL 3.2-5.2 Normal (applies to non-numeric resul ts) [facility] ([facility]) Albumin/Globulin Ratio 1.3 1.2-2.2 Normal (applies to non-n umeric results) [facility] ([facility]) 05/08/21 (FriMay 08) 09:57 AM HERNAN ROMERO progressive decline in Hb---likely relatyed toAZA. Stop AZA--new allergy ID Date Data Source [id number] 04/07/2021 11:09:00 AM EDT [facility] ([facility]) Name Value Range Interpretation Code Description Data Ana M rce(s) Supporting Document(s) White Blood Count 5.9 10 4.0-10.0 Normal (applies to non-numeri c results) [facility] ([facility]) Red Blood Count 3.04 10 4.00-5.40 Below low normal [facility] ([facility]) Hemoglobin 9.3 g/dL 12.0-15.5 Below low normal [facility] ( [facility]) Mean Corpuscular Hemoglobin 30.6 pg 27.0-33.0 Norm al (applies to non-numeric results) [facility] ([facility]) Hematocrit 28.9 % 36.0-47.0 Below low normal [facility] ( [facility]) Mean Corpuscular Volume 95.1 fl 80.0-96.0 Normal ( applies to non-numeric results) [facility] ([facility]) Mean Corpuscular HGB Conc 32.2 g/dL 32.0-36.5 Normal (applies to non-numeric results) [facility] ([facility]) Red Cell Distribution Width 14.7 % 11.5-14.5 Above high normal [facility] ([facility]) Neutrophils % 70.9 % 36.0-66.0 Above high normal [facility] ([facility]) Lymph % 18.2 % 24.0-44.0 Below low normal [facility] ( [facility]) Platelet Count, Automated 271 10 150-450 Normal (applies to non-numeric results) [facility] ([facility]) Eos % 1.7 % 0.0-3.0 Normal (applies to non-numeric resul ts) [facility] ([facility]) [place] % 7.8 % 2.0-8.0 Normal (applies to non-numeric resul ts) [facility] ([facility]) Baso % 0.7 % 0.0-1.0 Normal (applies to non-numeric resul ts) [facility] ([facility]) Immature Granulocyte % 0.7 % 0-3.0 Normal (applies to non-n umeric results) [facility] ([facility]) Neutrophils # 4.2 10 1.5-8.5 Normal (applies to non-numeric re sults) [facility] ([facility]) Lymph # 1.1 10 1.5-5.0 Below low normal [facility] ( [facility]) Nucleated Red Blood Cell % 0.0 % 0-0 Normal (applies to n on-numeric results) [facility] ([facility]) [place] # 0.5 10 0.0-0.8 Normal (applies to non-numeric resul ts) [facility] ([facility]) Eos # 0.1 10 0.0-0.5 Normal (applies to non-numeric resul ts) [facility] ([facility]) Baso # 0.0 10 0.0-0.2 Normal (applies to non-numeric resul ts) [facility] ([facility]) ID Date Data Source [id number] 04/07/2021 11:09:00 AM EDT [facility] ([facility] [...] Little GFR Left</content>
<content>ESRD GFR <15 on J2EE JAVA DEVELOPER</content>
<content></content> Carbon Dioxide Level 31 meq/L 21-32 [...] [facility] ID Date Data Source [id number] 04/07/2021 11:09:00 AM EDT [facility] ([facility] Garcia [...] % 24.0-44.0 [facility] ([facility] [place] % 7.8 % 2.0-8.0 [facility] (Hal[facility] mc [...] 10 1.5-5.0 [facility] ([facility] [place] # 0.5 10 0.0-0.8 [facility] ([facility] Neutrophils # 4.2 10 1.5-8.5 [facility] ([facility] Baso # 0.0 10 0.0-0.2 [facility] ([facility] Eos # 0.1 10 0.0-0.5 [facility] ([facility] ID Date Data Source [id number] 03/04/2021 10:49:00 AM EDT [facility] ([facility] Garcia [...] Little GFR Left</content>
<content>ESRD GFR <15 on J2EE JAVA DEVELOPER</content>
<content></content> Creatinine For GFR 0.83 mg/dL 0.55-1.30 [...] [facility] ID Date Data Source [id number] 03/04/2021 10:49:00 AM EDT [facility] ([facility] Name Value Range Interpretation Code Description Data Ana M e(s) Supporting Document(s) Malb Urine Siemens 13.2 mg/L [facility] ([facility] Creatinine, Urine 77.3 mg/dL [facility] ([facility] Higinio/Creat Ratio 17.0 MCG/MG 0.0-30.0 [facility] ([facility] THE [employer] STATES THAT MICROALBUMINURIA IS PRESENT IF THE MICROALBUMIN/CREATININE RATIO EXCEEDS 30 MCG/MG. THE THRESHOLD FOR CLINICAL ALBUMINURIA IS REACHED AT 300 MCG/MG. THE CLASSIFICATION OF A PATIENT SHOULD BE BASED UPON AT LEAST 2 OF 3 ABNORMAL RESULTS ON SPECIMENS COLLECTED WITHIN A 3 TO 6 MONTH TIME FRAME. ID Date Data Source [id number] 03/04/2021 10:49:00 AM EDT [facility] ([facility] [...] [facility] ID Date Data Source [id number] 03/04/2021 10:49:00 AM EDT [facility] ([facility] Name Value Range Interpretation Code Description Data Ana M rce(s) Supporting Document(s) Hemoglobin A1c/Hemoglobin.total in Blood 7.7 % [facility] ([facility] <content>REFERENCE RANGES:</content><br/ ><content></content>
<content><=5.6% NORMAL</content>
<content>5.7-6.4% SUGGESTS IMPAIRED GLUCOSE METABOLISM/PREDIABETIC</content>
<content>>= 6.5% ABNORMAL</content>
<content></content> Estimated Average Glucose 174 mg/dL 60-110 [facility] ([facility] ID Date Data Source [id number] 01/25/2021 11:35:00 AM EDT [facility] ([facility] Name Value Range Interpretation Code Description Data Ana M rce(s) Supporting Document(s) Lactate [Mass/volume] in Serum or Plasma 3.3 mmol/L 0.4-2.0 Above upper panic limits [facility] ([facility] Y/N query for Sepsis Lactate Rule: Y ID Date Data Source [id number] 01/25/2021 08:22:00 AM EDT [facility] ([facility] Name Value Range Interpretation Code Description Data Ana M rce(s) Supporting Document(s) Laboratory test finding (navigational concept) 36.0 % 38.0-51.0 [facility] ([facility] Laboratory test finding (navigational concept) 143 mg/dL 70-105 [facility] ([facility] Laboratory test finding (navigational concept) [...] [facility] ID Date Data Source [id number] 01/25/2021 07:28:00 AM EDT [facility] ([facility] Garcia [...] Troponin I Laboratory test result [facility] ([facility] <content>Troponin I Reference Interval f or Siemens [place] LOCI:</content>
<content></content>
<content>99th Percentile= 0.00-0.045 ng/ml</content>
<content></content>
<content>Risk Stratification:</content>
<content><= 0.10 ng/ml Decreased Risk for Adverse Clinical</content>
<content>Events.</content>
<content>0.10-1.50 ng/ml Increased Risk for Adverse Clinical</content>
<content>Events. Evaluation of additional</content>
<content>criterion and/or repeat testing in 2-6</content>
<content>hours is suggested to rule out myocardial</content>
<content>damage.</content>
<content>>= 1.50 ng/ml Indicative of Myocardial Injury.</content>
<content></content> ID Date Data Source [id number] 01/25/2021 07:28:00 AM EDT [facility] ([facility] Name Value Range Interpretation Code Description Data Ana M e(s) Supporting Document(s) Lipoprotein lipase [Enzymatic activity/volume] in Serum or P lasma 114 U/L 73-393 [facility] ([facility] MOBILAB COMMENT--- ID Date Data Source [id number] 01/25/2021 07:28:00 AM EDT [facility] ([facility] Name Value Range Interpretation Code Description Data Ana M e(s) Supporting Document(s) Ast/Sgot 20 U/L 7-37 [facility] [...] m[facility] ID Date Data Source [id number] 01/25/2021 07:28:00 AM EDT [facility] ([facility] Garcia [...] MYOCARDIAL INFARCTION 2.5-3.5 ID Date Data Source [id number] 01/25/2021 07:28:00 AM EDT [facility] ([facility] Name Value Range Interpretation Code [...] % 0.0-3.0 [facility] ([facility] [place] % 6.1 % 2.0-8.0 [facility] ([facility] Immature Granulocyte % 0.7 % 0-3.0 [facility] ([facility] Baso % 0.5 % 0.0-1.0 [facility] ([facility] Neutrophils # 7.4 10 1.5-8.5 [facility] ([facility] Nucleated Red Blood Cell % 0.0 % 0-0 MED [facility] ([facility] [place] # 0.6 10 0.0-0.8 [facility] ([facility] Lymph # 1.1 10 1.5-5.0 [facility] ([facility] Baso # 0.1 10 0.0-0.2 [facility] ([facility] Eos # 0.1 10 0.0-0.5 [facility] ([facility] ID Date Data Source [id number] 12/05/2020 04:33:54 PM EDT [facility] Name Value Range Interpretation Code Description Data Ana M rce(s) Supporting Document(s) Progress Note [facility] LHEJDd8dJwAZSkAc28/HURfnXWIhk8GhFCtjOPv9RJauWMHdX7JbLDQ4zW4tFMG4SDxFJaXxAwBeRUEj [facility] [file] per diem nurse+EVJDUJpWGv1GddAJs1KPvLrGOKnf9ozVuKdvxAeU7/Y61WbnZ5WqJrAgJHWsjP5CUK17J76xCtHK [file] OLjyBlVbCaDoAJVxCDP7BDAxJzJgIP6YQe7ZDiL6BYB5oYOwNw5FCrRbBQgLFcXkPI4HJFa= ID Date Data Source [id number] 10/30/2020 10:58:06 AM EDT [facility] MR ENTEROGRAPHY ABDOMEN [id number] RESUL TInterpreted by:Amaya Bedolla MDINDICATION: Ileal Crohn's [...] rce(s) Supporting Document(s) ID Date Data Source [id number] 10/30/2020 10:58:06 AM [facility] MR ENTEROGRAPHY PELVIS [id number] RESULT Interpreted by:Amaya Bedolla MDINDICATION: Ileal Crohn's [...] rce(s) Supporting Document(s) ID Date Data Source [id number] 10/19/2020 03:11:00 PM EST [facility] ([facility] [...] Little GFR Left</content>
<content>ESRD GFR <15 on J2EE JAVA DEVELOPER</content>
<content></content> Creatinine For GFR 0.83 mg/dL 0.55-1.30 [facility] ([facility] ID Date Data Source [id number] 09/01/2020 12:23:54 PM EST [facility] Name Value Range Interpretation Code Description Data Ana M rce(s) Supporting Document(s) Progress Note [facility] XKTZCm7bGaLBXiTc56/SVQjqAHEkm8WzBQijKOo8EVdtULEkN7MrOVH9cO7hEWU9SPqSOsJeHnNjBSD8 [facility] [file] 1wPWTB/B5wwNf57+db9rYlHbMZa8OouPhLwYrAboQwg1g1IzWqpSd0bPSuvLCDsFslRwm8s3p/0K+city carrier [file] ICAgICAgICAgICAgICAgICAgICAgICAgICAgICAgICAgICAgICAgICAgICAgICAgICAgICAgICAgICAg ICAgICAgICAgICAgICAgICAgICAgICAgICAgICAgICANCiAgICAgICAgICAgICAgICAgICAgICAgICAg ICAgICAgICAgICAgICAgICAgICAgICAgICAgICAgIC AgICAgICAgICAgICAgICAgICAgICAgICAgICAgICAgICAgICAgICAgICANCiAgICAgICAgICAgICAgIC AgICAgICAgICAgICAgICAgICAgICAgICAgICAgICAgICAgICAgICAgICAgICAgICAgICAgICAgICAgIC AgICAgICAgICAgICAgICAgICAgICAgICANCiAgICAg ICAgICAgICAgICAgICAgICAgICAgICAgICAgICAgICAgICAgICAgICAgICAgICAgICAgICAgICAgICAg ICAgICAgICAgICAgICAgICAgICAgICAgICAgICAgICAgICANCiAgICAgICAgICAgICAgICAgICAgICAg ICAgICAgICAgICAgICAgICAgICAgICAgICAgICAgIC AgICAgICAgICAgICAgICAgICAgICAgICAgICAgICAgICAgICAgICAgICAgICANCiAgICAgICAgICAgIC AgICAgICAgICAgICAgICAgICAgICAgICAgICAgICAgICAgICAgICAgICAgICAgICAgICAgICAgICAgIC AgICAgICAgICAgICAgICAgICAgICAgICAgICANCiAg ICAgICAgICAgICAgICAgICAgICAgICAgICAgICAgICAgICAgICAgICAgICAgICAgICAgICAgICAgICAg ICAgICAgICAgICAgICAgICAgICAgICAgICAgICAgICAgICAgICANCiAgICAgICAgICAgICAgICAgICAg ICAgICAgICAgICAgICAgICAgICAgICAgICAgICAgIC AgICAgICAgICAgICAgICAgICAgICAgICAgICAgICAgICAgICAgICAgICAgICAgICANCiAgICAgICAgIC AgICAgICAgICAgICAgICAgICAgICAgICAgICAgICAgICAgICAgICAgICAgICAgICAgICAgICAgICAgIC AgICAgICAgICAgICAgICAgICAgICAgICAgICAgICAN CiAgICAgICAgICAgICAgICAgICAgICAgICAgICAgICAgICAgICAgICAgICAgICAgICAgICAgICAgICAg ICAgICAgICAgICAgICAgICAgICAgICAgICAgICAgICAgICAgICAgICANCjw/iRUqN1tntDSsiqR2C7yr Nq7YDd5VXY4gz9OoITMtEEiznfSzQqwQEwUxUJPcAp oLBth7NTmcOD3StWHcX4RuK3EjBUegKE8RMPQpTVVfiKDwPBZbJJNqSyA4QPUaOZgiIA6AsGMdCObrFN UnCBCcVA9CNTBlG069soVkHE9DQa4JQzRtZZ4ybr6DErPkTWDrRaqXPbt1PIeaGZ7QhZMpdOTtYuDeXC GLYsRhN4nht1GnJuAxVQPPZTqsDJ9Oq7RclGIfNXi+ Sg2FCC3fj8IiFGjxFuTeLP2bom0AQUuDWxUhU8SvjGyvPDLbc2fhCQApFM0loFEwGZR4LD85uUNyvGWn EQ1tLOJwRiiuEKBlDWStXD5gSD9dGKUzZTZqGwPiNODNTO0LZKTrDKHrsWQyAZZyHGODIH7URVsuYBA9 TJFzmzIozQWsCXrrFQ1AGRPajlHcRzPdHMIXJMj+Pg 1YSA3rd5OaGJhkSTVsYU9mrl1YESjFQkEdG4L4wJNsY5I8VGlyEo3UFTRkZYWeDgNrNICZIExdIC8YWB 0kazO8WU9XgKMsHGDkIFPwwYRnSJn4C85xpILuVIleHU1MTMM+Sina+Jz3JQQBtPCBsCCArLgBrXSCVPx DaY7ObR1QAp2QdF0QbZN16zHhvprHnPWixAI6AVW1k WNLpCBENXK1QbUPpbZ0iqdDnPvTaNOMIMjJjV04euBCfVYQyXWSxYXQgAn6KDAAoV8AktsGgbNrdkoOe RKYfZLSWTT4OTIrifvRfrDYwhLbkLB04gHgdPS4JOw4IJhFbIR8plh2OrGNgOx3URYXxST2PJEWnMDBw BKBjPUB0DTJdWcRaTKbqOSHgGWLeMZD4MFWdBCWiIE 0OWmLcWCHfHDf7CiMaGGKhPQDxrq8KGTRkHXFqGCS6MHBeHYXmHLMeEQzfEPShGJCnGFA1PYIeMNLcBE 8WPqNxTXNlTIInJiBoNHIpPISols4YEJHlEHLaBhK5OORvEJTvKIBcYYkyUHZuADH4KNYrMGYtSCVuWO 6KGtZxQKXnHJC0IBzgRONwKEBryu1DOUPnGMJcQMw2 GNHbWIGwUYIjIJwvDBWlBME6RIJ8SFEkKOIoBE2HElRlXKIvQDRrQYouISRuKOZwep6AJKGvDSDtVsR4 TrNuKIRxUTDhJLqeZKThBZM6Hui9EUIcMEEhHP4WIiZmRDPcPEizQCZiVTJmWVFucb7DSNGjYOArBMYb FOLyGWEmHJGbLArxNMCpEML4GKUoZUWtBUAqUY3DZg GmLNDgDXm3USDbZSOvPEHjso3AEPXiUAFcQKX0IDXxNHXsHVTmGTduQMSbSQA4BsAoLDXaZSKoSW5ZGs SqXAPbLYg0REFxHLImAYJlet6LMPKgMSWoHGXkWQRyJOMtVDRiEAwrNOEkTODbJvK2CRSfOAKcJI5WUs WdPEImKeH8VrmlGDHfKVNiff6POCQiFNPzVOf6SwVx YDTkHPDqWAm8zlMmxUZxZNr6QY9CZ0TabcPgMrSCSh9Wg258UIV1ZWDmXl8CO2weFy1aVBDrLKINRv9F TKu1ORx3Kkn9CQXwLxl1DmSiGIIpFLv9OKRqHRTnNSaqVWL+IDxlOTlmNzdkMjIyODVmNDBkYmVkNzY0 MHEaJGKwKmTwTj8kPWODOz9+PGgxwSMjlMncEDDAYqXfToQdTJzoYYOABl1Z ID Date Data Source [id number] 08/27/2020 11:57:00 AM EST [facility] ([facility] [...] Gold Plus Laboratory test result [facility] ([facility] . The specimen received for QuantiFERON testing was incubated by the ordering institution. Specific procedures outlined in our Directory of Services and in the package insert for the QuantiFERON Gold (In Tube) test must be followed to enable for proper stimulation of cells for the production of interferon gamma. Performed at: [address] [id number] [employer] Convert[employer] Top: Lubna Keenan MD, Phone: [phone] QuantiFERON Mitogen Value Laboratory test result [facility] ([facility] ID Date Data Source [id number] 08/27/2020 11:57:00 AM EST [facility] ([facility] Name Value Range Interpretation Code Description Data Ana M rce(s) Supporting Document(s) Hepatitis B virus surface Ag [Presence] in Serum or Pl asma by Immunoassay Laboratory test result [facility] ([facility] ID Date Data Source [id number] 08/27/2020 11:57:00 AM EST [facility] ([facility]) Name Value Range Interpretation Code Description Data Ana M rce(s) Supporting Document(s) Hepatitis B virus surface Ag [Presence] in Serum or Pl asma by Immunoassay Laboratory test result Normal (applies to non-numeric results) [facility] ([facility]) ID Date Data Source [id number] 08/27/2020 11:57:00 AM EST [facility] ([facility]) Name Value Range Interpretation Code Description Data Ana M rce(s) Supporting Document(s) QuantiFERON Criteria Laboratory test result Norm al (applies to non-numeric results) [facility] ([facility]) . The QuantiFERON-TB Gold Plus result is determined by subtracting the Nil value from either TB antigen (Ag) tube. The mitogen tube serves as a control for the test. QuantiFERON TB2 Ag Value 0.02 IU/ml Normal (applies to non -numeric results) [facility] ([facility], ) QuantiFERON TB1 Ag Value 0.02 IU/ml Normal (applies to non -numeric results) [facility] QuantiFERON Nil Value 0.03 IU/ml Normal (applies to non-nu meric results) [facility] ([facility]) QuantiFERON Mitogen Value Laboratory test result Normal (applies to non- numeric results) [facility] QuantiFERON-TB Gold Plus Laboratory test result Normal (applies to non-numeric results) [facility] . The specimen received for QuantiFERON testing was incubated by the ordering institution. Specific procedures outlined in our Directory of Services and in the package insert for the QuantiFERON Gold (In Tube) test must be followed to enable for proper stimulation of cells for the production of interferon gamma. Performed at: - [facility] [id number] [employer]: Lubna Keenan MD, Phone: [phone] ID Date Data Source [id number] 08/27/2020 11:56:00 AM EST [facility] ([facility] Name Value Range Interpretation Code Description Data Ana M rce(s) Supporting Document(s) Hemoglobin A1c/Hemoglobin.total in Blood 6.8 % [facility] ([facility] <content>REFERENCE RANGES:</content><br/ ><content></content>
<content><=5.6% NORMAL</content>
<content>5.7-6.4% SUGGESTS IMPAIRED GLUCOSE METABOLISM/PREDIABETIC</content>
<content>>= 6.5% ABNORMAL</content>
<content></content> Estimated Average Glucose 148 mg/dL 60-110 [facility] ([facility] ID Date Data Source [id number] 07/19/2020 11:40:00 AM EST [facility] ([facility]) Name Value Range Interpretation Code Description Data Ana M rce(s) Supporting Document(s) Calprotectin [Mass/mass] in Stool 314 ug/g 0-120 Above high no rmal [facility] ([facility]) <content>Concentration Interpretatio n Follow-Up</content>
<content><16 - 50 ug/g Normal None</content>
<content>>50 -120 ug/g Borderline Re-evaluate in 4-6 weeks</content>
<content>>120 ug/g Abnormal Repeat as clinically</content>
<content>indicated</content>
<content>Performed at: [facility]</content>
<content>[address] [place] [id number]</content>
<content>[employer] Top: Piedad Peralta MD, Phone: [phone]</content>
<content></content> ID Date Data Source [id number] 06/04/2020 11:45:00 AM EDT [facility] ([facility] Name Value Range Interpretation Code Description Data Ana M rce(s) Supporting Document(s) Hemoglobin A1c/Hemoglobin.total in Blood 7.5 % [facility] ([facility] <content>REFERENCE RANGES:</content><br/ ><content></content>
<content><=5.6% NORMAL</content>
<content>5.7-6.4% SUGGESTS IMPAIRED GLUCOSE METABOLISM/PREDIABETIC</content>
<content>>= 6.5% ABNORMAL</content>
<content></content> Estimated Average Glucose 169 mg/dL 60-110 [facility] ([facility] ID Date Data Source [id number] 06/04/2020 11:44:00 AM EDT [facility] ([facility] [...] [facility] ID Date Data Source [id number] 06/04/2020 11:44:00 AM EDT [facility] ([facility] Name Value Range Interpretation Code Description Data Ana M rce(s) Supporting Document(s) Erythrocyte sedimentation rate by 2H Westergren method 7 mm/hr 0-3 0 [facility] ([facility] ID Date Data Source [id number] 06/04/2020 11:44:00 AM EDT [facility] ([facility] Name Value Range Interpretation Code Description Data Ana M rce(s) Supporting Document(s) Blood Urea Nitrogen 14 mg/dL 7-18 [facility] ([facility] Creatinine For GFR 1.09 mg/dL 0.55-1.30 [facility] ([facility] Glucose, Fasting 321 mg/dL 70-100 [...] Little GFR Left</content>
<content>ESRD GFR <15 on J2EE JAVA DEVELOPER</content>
<content></content> Sodium Level 136 meq/L 136-145 [facility] [...] [facility] ID Date Data Source [id number] 06/04/2020 11:44:00 AM EDT [facility] ([facility] Garcia [...] ([facility] ID Date Data Source [id number] 06/04/2020 11:44:00 AM EDT [facility] ([facility] [...] developed and its performance characteristics determined by [employer]. It has not been cleared or approved by the Food and Drug Administration. This case has been reviewed, approved, interpreted and electronically signed by Alexei Gay, PhD, [facility]. Laboratory test finding (navigational concept) Laboratory test result [facility] ([facility] . Enzymatic Endpoint/Liquid Chromatography - Tandem Mass Spectrometry (LC-MS/MS) ID Date Data Source [id number] 06/04/2020 11:44:00 AM EDT [facility] ([facility] [...] [facility] ([facility] Performed at: [email or web address] [address] [place] [id number] [employer] Top: Rusty Magana MD, Phone: [phone] Performed at: - [facility] [id number] [employer] Top: Lubna Keenan MD, Phone: [phone] Hepatitis B Core Antibody Igg Laboratory test result [facility] ([facility] ID Date Data Source [id number] 05/28/2020 07:39:00 PM EDT [facility] ([facility] Name Value Range Interpretation Code Description Data Ana M rce(s) Supporting Document(s) Appearance, Urine RFX Laboratory test result [facility] ([facility] PH,Urine RFX 5.0 units 5.0-9.0 [facility] ([facility] Specific [place] Ur Auto RFX 1.015 1.002-1.035 [facility] ([facility] [...] /HPF 0-3 [facility] ([facility] Bacteria, Urine Auto RFX [...] [facility] ID Date Data Source [id number] 05/28/2020 06:20:00 PM EDT [facility] ([facility] Name Value Range Interpretation Code Description Data Ana M rce(s) Supporting Document(s) Lipoprotein lipase [Enzymatic activity/volume] in Serum or P lasma 110 U/L 73-393 [facility] ([facility] ID Date Data Source [id number] 05/28/2020 06:20:00 PM EDT [facility] ([facility] Garcia [...] Little GFR Left</content>
<content>ESRD GFR <15 on J2EE JAVA DEVELOPER</content>
<content></content> Sodium Level 137 meq/L 136-145 [facility] [...] [facility] ID Date Data Source [id number] 05/28/2020 06:20:00 PM EDT [facility] ([facility] Garcia [...] [facility] ID Date Data Source [id number] 05/28/2020 06:20:00 PM EDT [facility] ([facility] Name Value Range Interpretation Code Description Data Ana M rce(s) Supporting Document(s) Inr 0.88 [facility] ([facility] mc [...] [facility] ID Date Data Source [id number] 05/28/2020 06:20:00 PM EDT [facility] ([facility] Garcia [...] % 11.5-14.5 [facility] ([facility] [place] % 5.0 % 0.0-5.0 [facility] ([facility]ley mc [...] 0-0 MED [facility] ([facility] [place] # 0.4 10 0.0-0.8 [facility] ([facility] Lymph # 1.0 10 1.5-5.0 [facility] ([facility] Baso # 0.0 10 0.0-0.2 [facility] ([facility] Eos # 0.1 10 0.0-0.5 [facility] ([facility] ID Date Data Source [id number] 05/26/2020 03:09:00 PM EDT [facility] ([facility] Name Value Range Interpretation Code Description Data Ana M rce(s) Supporting Document(s) White Blood Count 6.8 10 4.0-10.0 [facility] ([facility] Red Blood Count 3.26 10 4.00-5.40 [facility] ([facility] Hemoglobin 9.8 g/dL 12.0-15.5 [facility] ([facility] Hematocrit 30.4 % 36.0-47.0 [facility] ([facility] Mean Corpuscular Hemoglobin 30.1 pg [...] % 0.0-1.0 [facility] ([facility] [place] % 8.7 % 0.0-5.0 [facility] ([facility] Eos % 1.5 % 0.0-3.0 [facility] ([facility] Immature Granulocyte % 0.6 % 0-3.0 [facility] ([facility] Nucleated Red Blood Cell % 0.0 % 0-0 MED [facility] ([facility] Lymph # 1.4 10 1.5-5.0 [facility] ([facility] [place] # 0.6 10 0.0-0.8 [facility] ([facility] Neutrophils # 4.6 10 1.5-8.5 [facility] ([facility] Eos # 0.1 10 0.0-0.5 [facility] ([facility] Baso # 0.0 10 0.0-0.2 [facility] ([facility] ID Date Data Source [id number] 05/26/2020 03:09:00 PM EDT [facility] ([facility] Name Value Range Interpretation Code Description Data Ana M rce(s) Supporting Document(s) Hemoglobin A1c/Hemoglobin.total in Blood 7.4 % [facility] ([facility] <content>REFERENCE RANGES:</content><br/ ><content></content>
<content><=5.6% NORMAL</content>
<content>5.7-6.4% SUGGESTS IMPAIRED GLUCOSE METABOLISM/PREDIABETIC</content>
<content>>= 6.5% ABNORMAL</content>
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. Nucleic acid amplification tests include PCR and [...] detected) result in this assay. Performed at: [address] [id number] [employer]: Lubna Keenan MD, Phone: [phone] Not Detected ID Date Data Source [id number] 05/19/2020 02:00:00 PM EDT [facility] Name Value Range Interpretation Code Description Data Ana M rce(s) Supporting Document(s) SARS coronavirus 2 RNA [facility] This lab was ordered by [facility] and reported by [facility]. ID Date Data Source [id number] 05/13/2020 05:43:20 PM EDT [facility] Name Value Range Interpretation Code Description Data Ana M rce(s) Supporting Document(s) &PDF [facility] RREXTx7wXzTIGiUd78/ZSPrgSDIje5DjNYitJEt9RLdvCDZkG5KohPssGFdQB7SdNLdFQVFaOXSwPZks waW ZkJ5fzxPDxkkVGd4Jje0TggJtlomiSXfGdQa7ZUzJbTW3ziv6NOSGnES5mnq8DHII7NY0OyDj1WSSaS9 NuDHSqDFPzm8UwSR0VLG3qqNcuYcA1NP0+GFliPHE2foHabH3YLQOiYN5NKdcD/r4z+l6233jQdRdlW+ m+bgIKSUNsZVHCtQ6fI0sBUwr8FQUoGHVt77wjiO+n 3pbkFWVExzpPj6UCOXwu6cCFOnL//1ebSRQEgSr+EJ1GHeDKT0Fd/2wh8cbFwPi+KjrN/q3lZcsMtyQn V6dLUWoW//4uujrdI8podKvOPImT//3xyt3614iQn4bKDlOYrlsqLRufZumZB1Mvmtk4aJ51vf68rW [file] 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 helper+BXAODAicZ/AoPyKwIUUZxvXAIhNfiEBXdjCM455UlWzbaKPumE15bsesTiCzIDs2ynaAU8qWW8Kj [file] RHONDA+JIcsFGfyoJt8cUTtWBFaOy9HVIZmHFSbHNPsIHJnWDTvKXKxUTVrAFNaYMNkGYZuRBRiDYEaJLZq ICAgICAgICAgICAgICAgICAgICAgICAgICAgICAgICAgICAgICAgICAgICAgICAgICAgICAgICAgICAg CJ7CQCEjNXSlEWRlQLSfCXJbOCEhNBGsOPExWMCmLI AgICAgICAgICAgICAgICAgICAgICAgICAgICAgICAgICAgICAgICAgICAgICAgICAgICAgICAgICAgIC XyRBEdZXUkHWAfNR2PPBQxXQShMTSlIBFsSLHlGBAjPRWiOLUaFPIdHQInVUJhUSZxKLSfNHYiECTgKJ AgICAgICAgICAgICAgICAgICAgICAgICAgICAgICAg GCGnVGEqVANeEANfCYUwACDaBROhAT4HUMTqIPXmYGNpADElJDRbDBSoSUBkZXAoWZEoEDWeTDLzWHVd ICAgICAgICAgICAgICAgICAgICAgICAgICAgICAgICAgICAgICAgICAgICAgICAgICAgICAgICAgICAg VAGmSE3BWKXdFVLhKUIjESDaVYFsTJOtWJOdJJGpPE AgICAgICAgICAgICAgICAgICAgICAgICAgICAgICAgICAgICAgICAgICAgICAgICAgICAgICAgICAgIC YeZENkNCJuWLQwPLPmKU8TQKSdYEOaOUSfKRFlQHOyXYQaRTPnGTXeGHZxGPHwSYCxKZNvPPEpVXDlNS AgICAgICAgICAgICAgICAgICAgICAgICAgICAgICAg BJQiIQZnKCUvSIVxXGMgYFMbSETfTXEnZP6UWAQuBWPqEZZeKWYePZQbXBQqMNYzWPVbLJKbGVBsROHa ICAgICAgICAgICAgICAgICAgICAgICAgICAgICAgICAgICAgICAgICAgICAgICAgICAgICAgICAgICAg CXHoDNRtYU0XGKPrNOMqQPLpQKOtFCIaECKnQCAzNZ AgICAgICAgICAgICAgICAgICAgICAgICAgICAgICAgICAgICAgICAgICAgICAgICAgICAgICAgICAgIC TdFFHpQZXnZBShSXKqNRLwNB5CFTYvNZUxABAoIEIsUVHcAPSoOSPvURJvIYDmZAZwWDCtTSWnFFJePB AgICAgICAgICAgICAgICAgICAgICAgICAgICAgICAg MCXgJOYvQBBjMPYqPHHkWRLqCZReVPSsTFZaRD1SDTQoXMJeCNXfEAUlPVZvUOBwKAUqGXUeLROsSXRu ICAgICAgICAgICAgICAgICAgICAgICAgICAgICAgICAgICAgICAgICAgICAgICAgICAgICAgICAgICAg EGYtHNWbNWZhIS4IAH62yCYru7E1ZYTeAQ7bwvt/Pg 5NLTnbdnQqyILjFB8YAsAnZN1oli5RIwEbRB6qye3WLBkUWuBdK5Z3rFNyNSBzITAVOnYpE20qQDmhJl 46ANwqZNSrBbTzPKo1Ql3VYtMmA8atSTJzHzA1GPWwQtR6OYCyZnMwCVmkCM8Iv0RwtLOmIYr+Pg0KZW 3gr7FoITwwWnFfHC8vts4EDOeQUzWvP7W4zVFaF2J3 NRloNn5KIAHdKJVxOsTtMKHBDXzyPT1JLU8agcB1CX8OgIRaKHXgHVLmtCUgAWj0H58acTUzEOwuAY8M ICA+Sina+Pc5XOFXjXQDnHWZjXgLpVBZBIrMyW89fwDRmLOAxPOTnUCUnOr5TGNBaV1TtlfQsfFkgjcHv KRSzTSBKLR9UGNwxazKetBWzgCxuBB96dVncRE4HUy 1OBfClDP3cyw1ZcMTfZh3FMFZwYE1SXEQoFFAtCIMiPLG3VIEeRqOyHKhdIBMiVFKkYSC5CRJxPKNgAU 7URbHrKIVsMFpvDfWkPYDuPHJgon5IIFIgGAN6DON9BNYjZCIfGSCoCTfcQMIgIOFyJOw2KJFsMOVcIG 6VHcIpRHVrFCY5ExqwSENaBVGyeg5GFKVmDGBtPgD2 SpOlFFCeWJIaKNiyZSOuIUB6MBG3UQDjXTBdQA1IKiDyPVNkSMQ8GfTxKYMvBYJtdo6YXBNoUFBkPdA2 JGUpWXOmISQfTSdwBMEuQQR3Ehf1RKIlXVRaDV1YVyNbDUQqLRu1EiUxRSTrBWAbdz4ULVKnZCHrGJgv KWSqYSLiHIPcIYacNPPbKMY3LIQ1NIBkRCJeZA8LSq HsUTFfCDgyAZZeCEZzTXKwfg8UAXYwKHLwYNF2ALDvIGEgISRpCKeoJVAkNRV8GQd5QBOiBRLxWE2DJk VdTITwJBC1WKQlRSVrSUBqme1KEDKfEGYxSFc0AUVaWEIvJIAxKXlpIFHmCDU2RCi6CVIdWJJeCT6PGe AgOOIoEDYqHjtnSBNhVLNshj3GOAFmNICuSgIbRDLm MAIgVDBgRSusJOLhQWF7Jdw5YWGfDYStYH2GCxVjDGKrPgNqGhLsDKWcHWVkuh1JPIUgJIYrSQG1WAWl OLClMSNoVTkiTMHnUUW6BqA0RCQcWFFoTN2GVjKeFJMmKNA6HTWdKYYzDGJmpb8PZBWyFLP2BYH3SLAr UZNpDRTyYUhvTPUdUUIrJQKlHIFyTPHjTE5ETjXgGR GuKiM5DPaaZFTaMEDkmz7WFYLrWJI4PIP0XRLkNYBjXCIpSNmbBCNuXGq8ZqPsGHGcWSKeYB4RYpUzAI VvIAq1LHXyPTVmYXRjfj0WYOSbYCY1TSK2ARKdVLCpWCBaUTd3jtGjrDRfSOh4YK3GP4LlqiToJsRTCx 9En560ITHxCTRlEr0FG6brEr8yRQTeVSOUOw0YFXn5 LPQ8KbT0NWJ3QTDuNZLyTtH6JRBcXUQbSWqlG9OmOTL+ZQh5LOcoCTr4CyD5N0R6X0FtTHPiUJDhVwEd N4DxXWKpIP9zCUZWMl8+XNxqqZMmzBjgCPTIXuw8ITF7IXhuPNDCEj1S ID Date Data Source [id number] 04/21/2020 12:00:00 AM EDT [facility] Britany Napoles R[facility], C Patient Name:ABRAHAN [id number] Date of : [address] [address] Date of Exam: 04/21/2020#: Fax: [phone] EXAM: [...] was interpreted with the aid of an XKS-gfbmkgudtdigvins-epzvp detection system. A. Negative mammogram reports should [...] at thistime.Nikolas Bob, KOREY/jmcThank you for referring WES LEW to our office. Electronically Signed - NIKOLAS BOB MD 04/25/20 10:06 Name Value Range Interpretation Code Description Data Ana M rce(s) Supporting Document(s) Procedure Social History Code Duration Value Status Description Data Source(s ) Smoking 05/15/2021 12:00:00 AM EDT Patient is a former smoker completed Patient is a former smoker [facility] ([facility] Alcohol intake 12/27/2020 12:00:00 AM EDT Ex-drinker (finding) comp leted Ex- drinker (finding) [facility] Alcohol intake 08/23/2020 12:00:00 AM EST Not Currently completed [facility] Smoking 08/23/2020 12:00:00 AM EST Former smoker completed Former smoker [facility] Alcohol intake 06/14/2020 12:00:00 AM EDT Not Currently completed [facility] Smoking 06/14/2020 12:00:00 AM EDT Former smoker completed Former smoker [facility] Vital Signs ID Date Data Source UNK Name Value Range Interpretation Code Description Data Source(s) Systolic blood pressure 134 mm[Hg] 134 mm[Hg] [facility] ([facility]) Diastolic blood pressure 61 mm[Hg] 61 mm[Hg] [facility] ([facility]) Body height 57 [in_i] 57 [in_i] [facility] ([facility]) 4'9" Body weight 181.00 [lb_av] 181.00 [lb_av] [facility] ([facility]) Body mass index (BMI) [Ratio] 39.2 kg/m2 39.2 k g/m2 [facility] ([facility]) [place] body weight 100 [lb_av] 100 [lb_av] [facility] Body weight 82.102 kg 82.102 kg [facility] ([facility]) Body surface area Derived from formula 1.72 m2 1.72 m2 [facility] ([facility]) Systolic blood pressure 134 mm[Hg] 134 mm[Hg] [facility] ([facility] Diastolic blood pressure 75 mm[Hg] 75 mm[Hg] [facility] ([facility] Heart rate 81 /min 81 /min [facility] ([facility] Body temperature 99.0 [degF] 99.0 [degF] [facility] ([facility] Respiratory rate 18 /min 18 /min [facility] ( [facility] Body height 57 [in_i] 57 [in_i] [facility] ([facility] 4'9" Body weight 183.50 [lb_av] 183.50 [lb_av] [facility] ([facility] Oxygen saturation in Arterial blood by Pulse oximetry 97 % 97 % [facility] ([facility] [place] body weight 100 [lb_av] 100 [lb_av] [facility] ([facility] Body mass index (BMI) [Ratio] 39.7 kg/m2 39.7 k g/m2 [facility] ([facility] Systolic blood pressure 137 mm[Hg] 137 mm[Hg] [facility] ([facility] Heart rate 94 /min 94 /min [facility] ([facility] Body temperature 98.7 [degF] 98.7 [degF] [facility] ([facility] Respiratory rate 20 /min 20 /min [facility] ( [facility] [place] body weight 100 [lb_av] 100 [lb_av] [facility] [...] blood pressure 140 mm[Hg] 140 mm[Hg] [facility] ([facility]) Diastolic blood pressure 73 mm[Hg] 73 mm[Hg] [facility] ([facility]) Body height 57 [in_i] 57 [in_i] [facility] ([facility]) 4'9" Body weight 179.00 [lb_av] 179.00 [lb_av] [facility] ([facility]) Body mass index (BMI) [Ratio] 38.7 kg/m2 38.7 k g/m2 [facility] ([facility]) [place] body weight 100 [lb_av] 100 [lb_av] [facility] ([facility]) Body weight 81.194 kg 81.194 kg [facility] ([facility]) Body surface area Derived from formula 1.72 m2 1.72 m2 [facility] ([facility]) Diastolic blood pressure 82 mm[Hg] 82 mm[Hg] [facility] ([facility]) Body height 57 [in_i] 57 [in_i] [facility] ([facility]) 4'9" Body weight 185.00 [lb_av] 185.00 [lb_av] [facility] ([facility]) Body mass index (BMI) [Ratio] 40.0 kg/m2 40.0 k g/m2 [facility] ([facility]) [place] body weight 100 [lb_av] 100 [lb_av] [facility] ([facility]) Body weight 83.916 kg 83.916 kg [facility] ([facility]) Body surface area Derived from formula 1.74 m2 1.74 m2 [facility] Systolic blood pressure 144 mm[Hg] 144 mm[Hg] [facility] ([facility]) Body temperature 96.8 [degF] 96.8 [degF] [facility] ([facility] Systolic blood pressure 129 mm[Hg] 129 mm[Hg] [facility] ([facility] Diastolic blood pressure 68 mm[Hg] 68 mm[Hg] [facility] ([facility] Heart rate 89 /min 89 /min [facility] ([facility] Respiratory rate 17 /min 17 /min [facility] ( [facility] [place] body weight 100 [lb_av] 100 [lb_av] [facility] ([facility] Body mass index (BMI) [Ratio] 39.9 kg/m2 39.9 k g/m2 [facility] ([facility] Systolic blood [...] Systolic blood pressure 130 mm[Hg] 130 mm[Hg] [facility] Diastolic blood pressure 80 mm[Hg] 80 mm[Hg] [facility] Heart rate 72 /min 72 /min [facility] Body height 144.8 cm 144.8 cm [facility] Body weight 85.73 kg 85.73 kg [facility] Body mass index (BMI) [Ratio] 40.90 kg/m2 40.90 kg/m2 [facility] Oxygen saturation in Arterial blood by Pulse oximetry 98 % 98 % [facility] Body height 57 [in_i] 57 [in_i] [facility] ([facility], ) 4'9" Body weight 180.00 [lb_av] 180.00 [lb_av] [facility] ([facility]) Body mass index (BMI) [Ratio] 38.9 kg/m2 38.9 k g/m2 [facility] ([facility]) [place] body weight 100 [lb_av] 100 [lb_av] [facility] ([facility]) Body weight 81.648 kg 81.648 kg [facility] ([facility]) Body surface area Derived from formula 1.72 m2 1.72 m2 [facility] ([facility]) Systolic blood pressure 154 mm[Hg] 154 mm[Hg] [facility] ([facility]) Diastolic blood pressure 78 mm[Hg] 78 mm[Hg] [facility] ([facility]) Body height 57 [in_i] 57 [in_i] [facility] 4'9" Body weight 180.00 [lb_av] 180.00 [lb_av] [facility] ([facility]) Body mass index (BMI) [Ratio] 38.9 kg/m2 38.9 k g/m2 [facility] ([facility]) [place] body weight 100 [lb_av] 100 [lb_av] [facility] ([facility]) Body weight 81.648 kg 81.648 kg [facility] ([facility], ) Body surface area Derived from formula 1.72 m2 1.72 m2 [facility] ([facility], ) Systolic blood pressure 200 mm[Hg] [...] 98 % [facility] [place] body weight 100 [lb_av] 100 [lb_av] [facility] ([facility] Body mass index (BMI) [Ratio] 38.9 kg/m2 38.9 k g/m2 [facility] ([facility] Systolic blood pressure 138 mm[Hg] 138 mm[Hg] [facility] Diastolic blood pressure 70 mm[Hg] 70 mm[Hg] [facility] Heart rate 80 /min 80 /min [facility] Body height 144.8 cm 144.8 cm [facility] Body weight 77.111 kg 77.111 kg [facility] Body mass index (BMI) [Ratio] 36.79 kg/m2 36.79 kg/m2 [facility] Diastolic blood pressure 68 mm[Hg] 68 mm[Hg] [facility] ([facility], ) Body height 57 [in_i] 57 [in_i] [facility] ([facility], ) 4'9" Body weight 169.00 [lb_av] 169.00 [lb_av] [facility] Body mass index (BMI) [Ratio] 36.6 kg/m2 36.6 k g/m2 [facility] ([facility]) [place] body weight 100 [lb_av] 100 [lb_av] [facility] ([facility]) Body weight 76.658 kg 76.658 kg [facility] ([facility]) Body surface area Derived from formula 1.67 m2 1.67 m2 [facility] ([facility]) Systolic blood pressure 113 mm[Hg] 113 mm[Hg] [facility] ([facility]) Systolic blood pressure 140 mm[Hg] 140 mm[Hg] [facility] Diastolic blood pressure 70 mm[Hg] 70 mm[Hg] [facility] Heart rate 87 /min 87 /min [facility] Body height 144.8 cm 144.8 cm [facility] Body weight 75.751 kg 75.751 kg [facility] Body mass index (BMI) [Ratio] 36.14 kg/m2 36.14 kg/m2 [facility] Oxygen saturation in Arterial blood by Pulse oximetry 98 % 98 % [facility] Systolic blood pressure 168 mm[Hg] 168 mm[Hg] [facility] ([facility] Diastolic blood pressure 81 mm[Hg] 81 mm[Hg] [facility] ([facility] Systolic blood pressure 157 mm[Hg] 157 mm[Hg] [facility] ([facility] Diastolic blood pressure 68 mm[Hg] 68 mm[Hg] [facility] ([facility] Heart rate 70 /min 70 /min [facility] ([facility] Body temperature 97.4 [degF] 97.4 [degF] [facility] ([facility] Respiratory rate 16 /min 16 /min [facility] ( [facility] Body height 57.25 [in_i] 57.25 [in_i] [facility] ([facility] 4'9.25" Body weight 164.38 [lb_av] 164.38 [lb_av] [facility] ([facility] Oxygen saturation in Arterial blood by Pulse oximetry 99 % 99 % [facility] ([facility] [place] body weight 100 [lb_av] 100 [lb_av] [facility] ([facility] Body mass index (BMI) [Ratio] 35.3 kg/m2 35.3 k g/m2 [facility] ([facility] Patient Treatment Plan of Care Planned Activity Planned Date Details Description Data Source (s) Enalapril Maleate 20 MG Oral Tablet 08/23/2020 12:00:00 AM EST [facility] Amlodipine 2.5 MG Oral Tablet 08/17/2020 12:00:00 AM EST [facility] Metoprolol Tartrate 25 MG Oral Tablet 07/24/2020 12:00:00 AM EST [facility] Enalapril Maleate 20 MG Oral Tablet 06/14/2020 12:00:00 AM EDT [facility] Budesonide 3 MG Delayed Release Oral Capsule 06/12/2020 12:00:00 AM EDT [facility] sitagliptin 100 MG Oral Tablet [Januvia] 05/31/2020 12:00:00 AM EDT [facility] Amlodipine 2.5 MG Oral Tablet 05/30/2020 12:00:00 AM EDT [facility] Acetaminophen 325 MG / Hydrocodone Bitartrate 5 MG Ora l Tablet 05/29/2020 12:00:00 AM EDT [facility] mercaptopurine 50 MG Oral Tablet 05/25/2020 12:00:00 AM EDT [facility] Cyclobenzaprine hydrochloride 10 MG Oral Tablet 03/06/2020 12:00:00 AM EDT [facility] Metformin hydrochloride 1000 MG Oral Tablet 02/27/2020 12:00:00 AM EDT [facility] Enalapril Maleate 20 MG Oral Tablet 02/02/2020 12:00:00 AM EDT [facility]
[2021-06-20] MEDS ORDERED: METOPROLOL TART 25 MG TABLET PO ONE (12:15)
[2021-06-20] MEDS ORDERED: MORPHINE 4 MG/ML 1ML VIAL/SYRINGE (J2270) IV ONE ×2 (12:15→13:35)
[2021-06-20 12:22] VITALS: BP 226/103
[2021-06-20 12:27] LABS: BASO % 0.3 % (0.0-1.0); EOS # 0.1 10^3/uL (0.0-0.5); EOS % 0.9 % (0.0-3.0); HEMATOCRIT 41.5 % (36.0-47.0); HEMOGLOBIN 13.5 g/dl (12.0-15.5); LYMPH # 1.1 10^3/uL (1.5-5.0); LYMPH % 12.8 % (24.0-44.0); MEAN CORPUSCULAR HEMOGLOBIN 30.4 pg (27.0-33.0); MEAN CORPUSCULAR HGB CONC 32.5 g/dl (32.0-36.5); MEAN CORPUSCULAR VOLUME 93.5 fl (80.0-96.0); MONO # 0.5 10^3/uL (0.0-0.8); MONO % 5.8 % (2.0-8.0); NEUTROPHILS % 79.6 % (36.0-66.0); PLATELET COUNT, AUTOMATED 286 10^3/uL (150-450); RED BLOOD COUNT 4.44 10^6/uL (4.00-5.40); WHITE BLOOD COUNT 8.8 10^3/uL (4.0-10.0)
[2021-06-20 12:53] LABS: ALBUMIN 3.5 GM/DL (3.2-5.2); ALT/SGPT 25 U/L (12-78); BILIRUBIN,DIRECT 0.3 MG/DL (0.0-0.2); BILIRUBIN,TOTAL 1.1 MG/DL (0.2-1.0); BLOOD UREA NITROGEN 14 MG/DL (7-18); CALCIUM LEVEL 9.5 MG/DL (8.8-10.2); CARBON DIOXIDE LEVEL 28 MEQ/L (21-32); CHLORIDE LEVEL 100 MEQ/L (98-107); CK-MB VALUE MASS 1.4 NG/ML (<3.6); CPK CREATINE PHOSPHOKINASE 23 U/L (26-192); CREATININE FOR GFR 0.89 MG/DL (0.55-1.30); GLOMERULAR FILTRATION RATE > 60.0 (>45); GLUCOSE, FASTING 177 MG/DL (70-100); LIPASE 84 U/L (73-393); MB/CK RELATIVE INDEX 6.09 (< OR =4); POTASSIUM SERUM 3.8 MEQ/L (3.5-5.1); SODIUM LEVEL 136 MEQ/L (136-145); TOTAL PROTEIN 6.5 GM/DL (6.4-8.2); TROPONIN I < 0.02 NG/ML (< 0.10)
[2021-06-20] MEDS: GASTROGRAFIN SOLUTION 30ML PO SCH ×2 (13:01→13:30)
[2021-06-20] MEDS ORDERED: NS 1,000 ML IV SCH (14:00)
[2021-06-20] MEDS ORDERED: PROMETHAZINE INJ 25 MG/ML VIAL (J2550) IV ONE (14:15)
[2021-06-20] MEDS ORDERED: ISOVUE-370 76% 100ML VIAL As Ordered ONE ×2 (14:52→16:48)
--- NOTE | 2021-06-20 18:29 | REPVR ---
PROCEDURE INFORMATION: Exam: CT Abdomen And Pelvis With Contrast Exam date and time: 06/20/2021 5:40 PM Age: 65 years old Clinical indication: Abdominal pain; Additional info: Ruq, luq abd pain, HX crohns TECHNIQUE: Imaging protocol: Computed tomography of the abdomen and pelvis with contrast. Radiation optimization: All CT scans at this facility use at least one of these dose optimization techniques: automated exposure control; mA and/or kV adjustment per patient size (includes targeted exams where dose is matched to clinical indication); or iterative reconstruction. Contrast material: ISO 370; Contrast volume: 100 ml; Contrast route: INTRAVENOUS (IV); COMPARISON: CT ABD/PEL W/IV CONTRAST ONLY 05/07/2021 7:56 PM FINDINGS: Lungs: There is peribronchial consolidation posteriorly in the right lower lobe and subsegmental atelectasis at the base of lingula. Liver: There are no focal liver lesions. Gallbladder and bile ducts: The gallbladder is unremarkable. Pancreas: The pancreas is normal. Spleen: The spleen is unremarkable. Adrenal glands: The adrenal glands are unremarkable. Kidneys and ureters: The kidneys are stable in appearance. There is probable parenchymal scarring left kidney possibly associated with prior infections or infarction. A nonobstructing 6.7 mm calculus is seen in the right kidney; the smaller calculi are seen bilaterally. No hydronephrosis. Stomach and bowel: There is no evidence of intestinal obstruction. Appendix: No evidence of appendicitis. Intraperitoneal space: The volume of ascites has increased in comparison to the prior study and is seen surrounding the organs in the upper abdomen as well as filling the right pericolic gutter. The colon is decompressed and therefore not well assessed but there appears to be thickening of the ascending colonic wall diverticular seen in the distal descending and sigmoid colon without adjacent inflammation. There is no small bowel dilatation. The small bowel wall is not well assessed however there is mild stranding in the adjacent mesentery. Vasculature: There is no evidence of an infrarenal abdominal aortic aneurysm. Lymph nodes: Unremarkable. No enlarged lymph nodes. Urinary bladder: The bladder is unremarkable. Reproductive: Unremarkable as visualized. Bones/joints: There is a dermal lesion at and to the right of midline overlying the sternum which may represent a sebaceous cyst measuring 2.1 cm. This is a stable finding. Skeletal degeneration. Soft tissues: There is a fat-containing umbilical hernia. IMPRESSION: 1. There is thickening of the wall of the ascending colon which was not present on the prior study. This may be due to colitis or a Crohn's flare. 2. There is no small bowel dilatation however there is mild inflammation in the mesentery surrounding the terminal ileum which may also be due to a Crohn's flare. 3. There is increased ascites in comparison the prior study likely associated with the acute bowel pathology. Electronically signed by: Ruma Jennings On 06/20/2021 18:28:27 PM
[2021-06-20] MEDS ORDERED: AUGMENTIN 875 MG TAB PO ONE (19:00)
[2021-06-20 19:30] VITALS: BP 139/68
[2021-06-20] MEDS ORDERED: ACETAMINOPHEN TAB 650MG DOSE (2X325MG) PO ONE (19:45)
[2021-06-20] MEDS ORDERED: ZOFR4TAB16 PO (19:47)
[2021-06-20] MEDS ORDERED: AUGM875T28 PO (19:48)
--- NOTE | 2021-06-21 07:43 | ED PDOC ---
Post-Departure Follow-Up radiology report faxed to Dr. Garcia/Elaine Gupta MD Jun 21, 2021 07:43
--- NOTE | 2021-06-21 09:42 | ECGEPIP ---
[facility] - ED Test Date: 2021-06-20 Pat Name: WES LEW Department: Room: - Gender: Female [employer]: RUY : 1955 Requested By: KARON Peña Order Number: [id number] Reading MD: Elaine English Measurements Intervals [place] Rate: 83 P: -25 AK: 120 QRS: -14 QRSD: 72 T: -26 QT: 398 QTc: 467 Interpretive Statements Sinus rhythm with pvc Minimal voltage criteria for LVH, may be normal variant ( R in aVL ) Nonspecific T wave abnormality increased ectopy 01/25/21 Electronically Signed on 06-21-2021 9:42:10 EDT by Elaine English
== END 2021-06-20 21:16 | disposition home or self-care (01) ==
LOC: M ED 10:12
DX: K50.919 Crohn's disease, unspecified, with unspecified complications (principal); E11.9 Type 2 diabetes mellitus without complications; I10 Essential (primary) hypertension; E78.5 Hyperlipidemia, unspecified; E66.9 Obesity, unspecified; K52.9 Noninfective gastroenteritis and colitis, unspecified; I24.9 Acute ischemic heart disease, unspecified; R18.8 Other ascites; Z79.84 Long term (current) use of oral hypoglycemic drugs; Z79.899 Other long term (current) drug therapy; Z88.1 Allergy status to other antibiotic agents; Z88.8 Allergy status to other drugs, medicaments and biological substances; Z91.018 Allergy to other foods
CPT/HCPCS: 74177; 80047; 80048; 80076; 82550; 82553; 83605; 83690; 84484; 85025; 93005; 93041; 94760; 96360; 96361; 99285; J2270; J2405; Q9963; Q9967

== ENCOUNTER → 2021-07-02 | Outpatient (CLI) | payer MEDICARE ==
[~2021-07-02] MED LIST changes: +AUGM875T28 PO; +METH2.5T48; +ZOFR4TAB16 PO
[2021-07-02 16:18] LABS: BASO % 0.7 % (0.0-1.0); EOS % 0.7 % (0.0-3.0); HEMATOCRIT 33.2 % (36.0-47.0); HEMOGLOBIN 10.9 g/dl (12.0-15.5); LYMPH # 1.4 10^3/uL (1.5-5.0); LYMPH % 23.4 % (24.0-44.0); MEAN CORPUSCULAR HEMOGLOBIN 30.4 pg (27.0-33.0); MEAN CORPUSCULAR HGB CONC 32.8 g/dl (32.0-36.5); MEAN CORPUSCULAR VOLUME 92.7 fl (80.0-96.0); MONO # 0.5 10^3/uL (0.0-0.8); MONO % 7.4 % (2.0-8.0); NEUTROPHILS # 4.1 10^3/uL (1.5-8.5); NEUTROPHILS % 67.3 % (36.0-66.0); PLATELET COUNT, AUTOMATED 273 10^3/uL (150-450); RED BLOOD COUNT 3.58 10^6/uL (4.00-5.40); WHITE BLOOD COUNT 6.1 10^3/uL (4.0-10.0)
[2021-07-02 17:00] LABS: ALBUMIN 3.7 GM/DL (3.2-5.2); ALT/SGPT 28 U/L (12-78); BILIRUBIN,TOTAL 0.7 MG/DL (0.2-1.0); BLOOD UREA NITROGEN 13 MG/DL (7-18); CALCIUM LEVEL 9.8 MG/DL (8.8-10.2); CARBON DIOXIDE LEVEL 30 MEQ/L (21-32); CHLORIDE LEVEL 101 MEQ/L (98-107); CREATININE FOR GFR 0.85 MG/DL (0.55-1.30); GLOMERULAR FILTRATION RATE > 60.0 (>45); GLUCOSE, FASTING 105 MG/DL (70-100); POTASSIUM SERUM 4.2 MEQ/L (3.5-5.1); SODIUM LEVEL 139 MEQ/L (136-145); TOTAL PROTEIN 6.6 GM/DL (6.4-8.2)
== END ==
LOC: M LAB 15:02
PROVIDERS: ATTEND Internal Medicine Gastroenterology
DX: K50.018 Crohn's disease of small intestine with other complication (principal)

== ENCOUNTER → 2021-10-12 | Outpatient (CLI) | payer MEDICARE ==
[~2021-10-12] MED LIST changes: -CEFD1CAP8 PO; +CEFD300C41 PO
[2021-10-12 15:41] LABS: BASO # 0.1 10^3/uL (0.0-0.2); BASO % 0.8 % (0.0-1.0); EOS # 0.1 10^3/uL (0.0-0.5); EOS % 1.1 % (0.0-3.0); HEMATOCRIT 32.5 % (36.0-47.0); HEMOGLOBIN 10.6 g/dl (12.0-15.5); LYMPH # 1.3 10^3/uL (1.5-5.0); LYMPH % 17.5 % (24.0-44.0); MEAN CORPUSCULAR HEMOGLOBIN 31.7 pg (27.0-33.0); MEAN CORPUSCULAR HGB CONC 32.6 g/dl (32.0-36.5); MEAN CORPUSCULAR VOLUME 97.3 fl (80.0-96.0); MONO # 0.5 10^3/uL (0.0-0.8); MONO % 6.3 % (2.0-8.0); NEUTROPHILS # 5.5 10^3/uL (1.5-8.5); NEUTROPHILS % 73.6 % (36.0-66.0); PLATELET COUNT, AUTOMATED 304 10^3/uL (150-450); RED BLOOD COUNT 3.34 10^6/uL (4.00-5.40); WHITE BLOOD COUNT 7.5 10^3/uL (4.0-10.0)
[2021-10-12 17:01] LABS: ALBUMIN 3.7 GM/DL (3.2-5.2); ALT/SGPT 24 U/L (12-78); BILIRUBIN,TOTAL 0.7 MG/DL (0.2-1.0); BLOOD UREA NITROGEN 12 MG/DL (7-18); CALCIUM LEVEL 9.6 MG/DL (8.8-10.2); CARBON DIOXIDE LEVEL 29 MEQ/L (21-32); CHLORIDE LEVEL 103 MEQ/L (98-107); CREATININE FOR GFR 0.78 MG/DL (0.55-1.30); GLOMERULAR FILTRATION RATE > 60.0 (>45); GLUCOSE, FASTING 113 MG/DL (70-100); HEPATITIS B SURFACE ANTIGEN NEGATIVE (NEGATIVE); POTASSIUM SERUM 4.2 MEQ/L (3.5-5.1); SODIUM LEVEL 139 MEQ/L (136-145); TOTAL PROTEIN 6.6 GM/DL (6.4-8.2)
== END ==
LOC: M LAB 14:49
PROVIDERS: ATTEND Internal Medicine Gastroenterology
DX: K50.018 Crohn's disease of small intestine with other complication (principal)

== ENCOUNTER → 2021-12-06 | Outpatient (CLI) | payer MEDICARE ==
[2021-12-06 15:29] LABS: BASO % 0.6 % (0.0-1.0); EOS # 0.1 10^3/uL (0.0-0.5); EOS % 1.9 % (0.0-3.0); HEMATOCRIT 34.7 % (36.0-47.0); HEMOGLOBIN 11.4 g/dl (12.0-15.5); LYMPH # 1.1 10^3/uL (1.5-5.0); LYMPH % 20.6 % (24.0-44.0); MEAN CORPUSCULAR HEMOGLOBIN 31.2 pg (27.0-33.0); MEAN CORPUSCULAR HGB CONC 32.9 g/dl (32.0-36.5); MEAN CORPUSCULAR VOLUME 95.1 fl (80.0-96.0); MONO # 0.6 10^3/uL (0.0-0.8); MONO % 10.9 % (2.0-8.0); NEUTROPHILS # 3.5 10^3/uL (1.5-8.5); NEUTROPHILS % 65.4 % (36.0-66.0); PLATELET COUNT, AUTOMATED 222 10^3/uL (150-450); RED BLOOD COUNT 3.65 10^6/uL (4.00-5.40); WHITE BLOOD COUNT 5.3 10^3/uL (4.0-10.0)
[2021-12-06 15:57] LABS: ALBUMIN 3.7 GM/DL (3.2-5.2); ALT/SGPT 34 U/L (12-78); BLOOD UREA NITROGEN 12 MG/DL (7-18); CALCIUM LEVEL 9.7 MG/DL (8.8-10.2); CARBON DIOXIDE LEVEL 32 MEQ/L (21-32); CHLORIDE LEVEL 101 MEQ/L (98-107); CREATININE FOR GFR 0.88 MG/DL (0.55-1.30); GLOMERULAR FILTRATION RATE > 60.0 (>45); GLUCOSE, FASTING 108 MG/DL (70-100); IRON (FE) 70 UG/DL (50-170); PERCENT SATURATION 17.2 % (13.2-45.0); POTASSIUM SERUM 3.7 MEQ/L (3.5-5.1); SODIUM LEVEL 139 MEQ/L (136-145); TOTAL IRON BINDING CAPACITY 407 UG/DL (250-450); TOTAL PROTEIN 6.6 GM/DL (6.4-8.2)
[2021-12-06 16:05] LABS: FOLATE 8.9 NG/ML
== END ==
LOC: M LAB 14:22
PROVIDERS: ATTEND Internal Medicine Gastroenterology
DX: K50.018 Crohn's disease of small intestine with other complication (principal)

== ENCOUNTER → 2021-12-06 | Outpatient (CLI) | payer MEDICARE ==
[2021-12-06 15:29] LABS: BASO % 0.7 % (0.0-1.0); EOS # 0.1 10^3/uL (0.0-0.5); EOS % 2.2 % (0.0-3.0); HEMATOCRIT 34.6 % (36.0-47.0); HEMOGLOBIN 11.6 g/dl (12.0-15.5); LYMPH # 1.1 10^3/uL (1.5-5.0); MEAN CORPUSCULAR HEMOGLOBIN 32.3 pg (27.0-33.0); MEAN CORPUSCULAR HGB CONC 33.5 g/dl (32.0-36.5); MEAN CORPUSCULAR VOLUME 96.4 fl (80.0-96.0); MONO # 0.6 10^3/uL (0.0-0.8); NEUTROPHILS # 3.7 10^3/uL (1.5-8.5); NEUTROPHILS % 66.7 % (36.0-66.0); PLATELET COUNT, AUTOMATED 225 10^3/uL (150-450); RED BLOOD COUNT 3.59 10^6/uL (4.00-5.40); WHITE BLOOD COUNT 5.5 10^3/uL (4.0-10.0)
[2021-12-06 15:49] LABS: HEMOGLOBIN A1c 6.5 %
[2021-12-06 15:58] LABS: PERCENT SATURATION 17.4 % (13.2-45.0)
== END ==
LOC: M LAB 14:25
PROVIDERS: ATTEND Nurse Practitioner Family
DX: E11.9 Type 2 diabetes mellitus without complications (principal)

== ENCOUNTER → 2022-01-29 | Outpatient (CLI) | payer MEDICARE ==
[~2022-01-29] MED LIST changes: -AZAT50TA2 PO; +AZAT50TA37 PO
[2022-01-29 15:33] LABS: BASO % 0.6 % (0.0-1.0); EOS # 0.1 10^3/uL (0.0-0.5); EOS % 1.4 % (0.0-3.0); HEMATOCRIT 31.3 % (36.0-47.0); LYMPH # 1.2 10^3/uL (1.5-5.0); LYMPH % 22.6 % (24.0-44.0); MEAN CORPUSCULAR HEMOGLOBIN 31.4 pg (27.0-33.0); MEAN CORPUSCULAR HGB CONC 31.9 g/dl (32.0-36.5); MEAN CORPUSCULAR VOLUME 98.4 fl (80.0-96.0); MONO # 0.4 10^3/uL (0.0-0.8); MONO % 7.9 % (2.0-8.0); NEUTROPHILS # 3.5 10^3/uL (1.5-8.5); NEUTROPHILS % 67.1 % (36.0-66.0); PLATELET COUNT, AUTOMATED 242 10^3/uL (150-450); RED BLOOD COUNT 3.18 10^6/uL (4.00-5.40); WHITE BLOOD COUNT 5.2 10^3/uL (4.0-10.0)
[2022-01-29 15:53] LABS: ERYTHROCYTE SEDIMENTATION RATE 25 mm/hr (0-30)
[2022-01-29 16:05] LABS: ALBUMIN 3.5 GM/DL (3.2-5.2); ALT/SGPT 25 U/L (12-78); BILIRUBIN,TOTAL 0.8 MG/DL (0.2-1.0); BLOOD UREA NITROGEN 11 MG/DL (7-18); CALCIUM LEVEL 9.1 MG/DL (8.8-10.2); CARBON DIOXIDE LEVEL 28 MEQ/L (21-32); CHLORIDE LEVEL 106 MEQ/L (98-107); CREATININE FOR GFR 0.91 MG/DL (0.55-1.30); GLOMERULAR FILTRATION RATE > 60.0 (>45); GLUCOSE, FASTING 96 MG/DL (70-100); IRON (FE) 72 UG/DL (50-170); PERCENT SATURATION 23.2 % (13.2-45.0); SODIUM LEVEL 141 MEQ/L (136-145); TOTAL IRON BINDING CAPACITY 310 UG/DL (250-450); TOTAL PROTEIN 6.6 GM/DL (6.4-8.2)
[2022-01-29 16:13] LABS: VITAMIN B12 LEVEL 640 PG/ML
[2022-01-29 16:21] LABS: FOLATE 6.6 NG/ML
== END ==
LOC: M LAB 14:31
PROVIDERS: ATTEND Internal Medicine Gastroenterology
DX: K50.018 Crohn's disease of small intestine with other complication (principal)

== ENCOUNTER → 2022-02-21 | Outpatient (CLI) | payer MEDICARE ==
[2022-02-21 15:02] LABS: BASO % 0.4 % (0.0-1.0); EOS # 0.1 10^3/uL (0.0-0.5); EOS % 1.6 % (0.0-3.0); HEMATOCRIT 32.3 % (36.0-47.0); HEMOGLOBIN 10.5 g/dl (12.0-15.5); LYMPH # 1.4 10^3/uL (1.5-5.0); LYMPH % 20.4 % (24.0-44.0); MEAN CORPUSCULAR HEMOGLOBIN 31.8 pg (27.0-33.0); MEAN CORPUSCULAR HGB CONC 32.5 g/dl (32.0-36.5); MEAN CORPUSCULAR VOLUME 97.9 fl (80.0-96.0); MONO # 0.7 10^3/uL (0.0-0.8); MONO % 9.9 % (2.0-8.0); NEUTROPHILS # 4.7 10^3/uL (1.5-8.5); NEUTROPHILS % 67.3 % (36.0-66.0); PLATELET COUNT, AUTOMATED 267 10^3/uL (150-450)
[2022-02-21 15:33] LABS: ALBUMIN 3.6 GM/DL (3.2-5.2); BILIRUBIN,DIRECT 0.4 MG/DL (0.0-0.2); TOTAL PROTEIN 6.4 GM/DL (6.4-8.2)
== END ==
LOC: M LAB 14:37
PROVIDERS: ATTEND Internal Medicine Gastroenterology
DX: K50.018 Crohn's disease of small intestine with other complication (principal)

== ENCOUNTER → 2022-03-18 | Outpatient (CLI) | payer MEDICARE ==
[2022-03-18 14:40] LABS: BASO % 0.6 % (0.0-1.0); EOS # 0.1 10^3/uL (0.0-0.5); EOS % 1.6 % (0.0-3.0); HEMATOCRIT 32.3 % (36.0-47.0); HEMOGLOBIN 10.5 g/dl (12.0-15.5); LYMPH # 1.2 10^3/uL (1.5-5.0); LYMPH % 24.7 % (24.0-44.0); MEAN CORPUSCULAR HEMOGLOBIN 31.7 pg (27.0-33.0); MEAN CORPUSCULAR HGB CONC 32.5 g/dl (32.0-36.5); MEAN CORPUSCULAR VOLUME 97.6 fl (80.0-96.0); MONO # 0.5 10^3/uL (0.0-0.8); MONO % 9.3 % (2.0-8.0); NEUTROPHILS # 3.1 10^3/uL (1.5-8.5); NEUTROPHILS % 63.6 % (36.0-66.0); PLATELET COUNT, AUTOMATED 203 10^3/uL (150-450); RED BLOOD COUNT 3.31 10^6/uL (4.00-5.40); WHITE BLOOD COUNT 4.9 10^3/uL (4.0-10.0)
[2022-03-18 15:07] LABS: ALBUMIN 3.6 GM/DL (3.2-5.2); ALT/SGPT 22 U/L (12-78); BILIRUBIN,TOTAL 0.7 MG/DL (0.2-1.0); BLOOD UREA NITROGEN 10 MG/DL (7-18); CALCIUM LEVEL 9.8 MG/DL (8.8-10.2); CARBON DIOXIDE LEVEL 26 MEQ/L (21-32); CHLORIDE LEVEL 106 MEQ/L (98-107); CREATININE FOR GFR 0.84 MG/DL (0.55-1.30); GLOMERULAR FILTRATION RATE > 60.0 (>45); GLUCOSE, FASTING 102 MG/DL (70-100); POTASSIUM SERUM 4.2 MEQ/L (3.5-5.1); SODIUM LEVEL 141 MEQ/L (136-145); TOTAL PROTEIN 6.6 GM/DL (6.4-8.2)
== END ==
LOC: M LAB 14:06
PROVIDERS: ATTEND Internal Medicine Gastroenterology
DX: K50.018 Crohn's disease of small intestine with other complication (principal)

== ENCOUNTER 2022-05-06 08:35 | Emergency (ER) | payer MEDICARE ==
[~2022-05-06] VITALS: Ht 144.8 cm; Wt 77.2 kg
[2022-05-06 08:36] VITALS: BP 154/72
[2022-05-06] MEDS ORDERED: ONDANSETRON 4MG 2ML VIAL IV ONE (09:55)
[2022-05-06] MEDS ORDERED: MORPHINE 4 MG/ML 1ML VIAL/SYRINGE IV ONE (09:55)
== END 2022-05-06 10:31 | disposition home or self-care (01) ==
LOC: M ED 08:35
DX: S01.502A Unspecified open wound of oral cavity, initial encounter (principal); E11.9 Type 2 diabetes mellitus without complications; I10 Essential (primary) hypertension; K50.90 Crohn's disease, unspecified, without complications; Z87.442 Personal history of urinary calculi; J44.9 Chronic obstructive pulmonary disease, unspecified; M54.9 Dorsalgia, unspecified; K57.32 Diverticulitis of large intestine without perforation or abscess without bleeding; Z79.84 Long term (current) use of oral hypoglycemic drugs; Z79.899 Other long term (current) drug therapy; Z88.1 Allergy status to other antibiotic agents; Z88.8 Allergy status to other drugs, medicaments and biological substances; Z91.018 Allergy to other foods

== ENCOUNTER → 2022-06-05 | Outpatient (CLI) | payer MEDICARE ==
[2022-06-05 10:54] LABS: HEMOGLOBIN A1c 6.2 %
[2022-06-05 11:15] LABS: CREATININE, URINE 67.3 MG/DL; MALB URINE SIEMENS 16.8 MG/L; MAU/CREAT RATIO 24.9 MCG/MG (0.0-30.0)
== END ==
LOC: M LAB 09:31
PROVIDERS: ATTEND Nurse Practitioner Family
DX: E11.69 Type 2 diabetes mellitus with other specified complication (principal)

== ENCOUNTER → 2022-06-05 | Outpatient (CLI) | payer MEDICARE ==
[2022-06-05 11:05] LABS: CHOLESTEROL RISK RATIO 2.93 (<5)
== END ==
LOC: M LAB 09:35
PROVIDERS: ATTEND Nurse Practitioner Family
DX: E78.2 Mixed hyperlipidemia (principal)

== ENCOUNTER → 2022-06-26 | Outpatient (CLI) | payer MEDICARE | LOC: M WHC 12:44 | PROVIDERS: ATTEND Nurse Practitioner Family | DX: Z12.31 Encounter for screening mammogram for malignant neoplasm of breast (principal); N64.1 Fat necrosis of breast ==

== ENCOUNTER → 2022-07-29 | Outpatient (CLI) | payer MEDICARE ==
[2022-07-29 14:28] LABS: BASO % 0.6 % (0.0-1.0); EOS # 0.1 10^3/uL (0.0-0.5); EOS % 1.1 % (0.0-3.0); HEMATOCRIT 34.5 % (36.0-47.0); HEMOGLOBIN 11.3 g/dl (12.0-15.5); LYMPH # 1.5 10^3/uL (1.5-5.0); LYMPH % 24.2 % (24.0-44.0); MEAN CORPUSCULAR HEMOGLOBIN 32.2 pg (27.0-33.0); MEAN CORPUSCULAR HGB CONC 32.8 g/dl (32.0-36.5); MEAN CORPUSCULAR VOLUME 98.3 fl (80.0-96.0); MONO # 0.6 10^3/uL (0.0-0.8); MONO % 9.1 % (2.0-8.0); NEUTROPHILS % 64.5 % (36.0-66.0); PLATELET COUNT, AUTOMATED 179 10^3/uL (150-450); RED BLOOD COUNT 3.51 10^6/uL (4.00-5.40); WHITE BLOOD COUNT 6.2 10^3/uL (4.0-10.0)
[2022-07-29 14:54] LABS: C REACTIVE PROTEIN QUANTITATIV 0.4 MG/DL (<1.0)
[2022-07-29 14:56] LABS: FERRITIN 28.8 NG/ML (7.3-270.7); FREE T4 1.21 NG/DL (0.89-1.76); THYROID STIMULATING HORMONE 2.595 uIU/ML (0.55-4.78)
== END ==
LOC: M LAB 13:38
PROVIDERS: ATTEND Internal Medicine Hematology
DX: D50.9 Iron deficiency anemia, unspecified (principal); E53.8 Deficiency of other specified B group vitamins; D63.8 Anemia in other chronic diseases classified elsewhere; D53.9 Nutritional anemia, unspecified

== ENCOUNTER → 2022-09-09 | Outpatient (CLI) | payer MEDICARE | LOC: M PLARAD 10:22 | PROVIDERS: ATTEND Otolaryngology | DX: C02.9 Malignant neoplasm of tongue, unspecified (principal); I70.0 Atherosclerosis of aorta; I25.10 Atherosclerotic heart disease of native coronary artery without angina pectoris; N26.1 Atrophy of kidney (terminal); N20.0 Calculus of kidney; K80.20 Calculus of gallbladder without cholecystitis without obstruction; K57.90 Diverticulosis of intestine, part unspecified, without perforation or abscess without bleeding | CPT/HCPCS: 78815; A9552 ==

== ENCOUNTER → 2022-09-30 | Outpatient (CLI) | payer MEDICARE ==
[2022-09-30 16:52] LABS: BASO % 0.5 % (0.0-1.0); EOS # 0.1 10^3/uL (0.0-0.5); EOS % 1.3 % (0.0-3.0); HEMATOCRIT 36.4 % (36.0-47.0); LYMPH # 1.8 10^3/uL (1.5-5.0); LYMPH % 28.8 % (24.0-44.0); MEAN CORPUSCULAR HEMOGLOBIN 31.7 pg (27.0-33.0); MEAN CORPUSCULAR VOLUME 96.3 fl (80.0-96.0); MONO # 0.6 10^3/uL (0.0-0.8); MONO % 10.3 % (2.0-8.0); NEUTROPHILS # 3.7 10^3/uL (1.5-8.5); NEUTROPHILS % 58.8 % (36.0-66.0); PLATELET COUNT, AUTOMATED 173 10^3/uL (150-450); RED BLOOD COUNT 3.78 10^6/uL (4.00-5.40); WHITE BLOOD COUNT 6.2 10^3/uL (4.0-10.0)
[2022-09-30 17:27] LABS: ALBUMIN 3.8 G/DL (3.2-5.2); ALKALINE PHOSPHATASE 111 U/L (46-116); ALT/SGPT 28 U/L (7.0-40); AST/SGOT 45 U/L (<34); BILIRUBIN,TOTAL 1.3 MG/DL (0.3-1.2); BLOOD UREA NITROGEN 14 MG/DL (9-23); CALCIUM LEVEL 8.9 MG/DL (8.3-10.6); CARBON DIOXIDE LEVEL 27 MMOL/L (20-31); CHLORIDE LEVEL 99 MMOL/L (98-107); CREATININE FOR GFR 0.75 MG/DL (0.55-1.30); FOLATE > 24.0 NG/ML (>5.4); GLOMERULAR FILTRATION RATE > 60.0 (>45); GLUCOSE, FASTING 100 MG/DL (74-106); POTASSIUM SERUM 3.5 MMOL/L (3.5-5.1); SODIUM LEVEL 138 MMOL/L (136-145); TOTAL PROTEIN 6.7 G/DL (5.7-8.2); VITAMIN B12 LEVEL 792 PG/ML (211-911)
[2022-09-30 17:42] LABS: HEPATITIS B SURFACE ANTIGEN NEGATIVE (NEGATIVE)
== END ==
LOC: M LAB 15:13
PROVIDERS: ATTEND Internal Medicine Gastroenterology
DX: K50.00 Crohn's disease of small intestine without complications (principal)

== ENCOUNTER → 2022-09-30 | Outpatient (CLI) | payer MEDICARE ==
[2022-09-30 16:52] LABS: BASO % 0.6 % (0.0-1.0); EOS # 0.1 10^3/uL (0.0-0.5); EOS % 1.6 % (0.0-3.0); HEMATOCRIT 36.3 % (36.0-47.0); HEMOGLOBIN 12.1 g/dl (12.0-15.5); LYMPH # 1.8 10^3/uL (1.5-5.0); LYMPH % 28.5 % (24.0-44.0); MEAN CORPUSCULAR HEMOGLOBIN 32.2 pg (27.0-33.0); MEAN CORPUSCULAR HGB CONC 33.3 g/dl (32.0-36.5); MEAN CORPUSCULAR VOLUME 96.5 fl (80.0-96.0); MONO # 0.6 10^3/uL (0.0-0.8); MONO % 10.4 % (2.0-8.0); NEUTROPHILS # 3.6 10^3/uL (1.5-8.5); NEUTROPHILS % 58.6 % (36.0-66.0); PLATELET COUNT, AUTOMATED 182 10^3/uL (150-450); RED BLOOD COUNT 3.76 10^6/uL (4.00-5.40); WHITE BLOOD COUNT 6.2 10^3/uL (4.0-10.0)
[2022-09-30 17:08] LABS: BLOOD UREA NITROGEN 14 MG/DL (9-23); CALCIUM LEVEL 9.3 MG/DL (8.3-10.6); CARBON DIOXIDE LEVEL 28 MMOL/L (20-31); CHLORIDE LEVEL 101 MMOL/L (98-107); GLOMERULAR FILTRATION RATE > 60.0 (>45); GLUCOSE, FASTING 103 MG/DL (74-106); POTASSIUM SERUM 3.6 MMOL/L (3.5-5.1); SODIUM LEVEL 138 MMOL/L (136-145)
== END ==
LOC: M LAB 15:11
PROVIDERS: ATTEND Nurse Practitioner Family
DX: Z01.818 Encounter for other preprocedural examination (principal)

== ENCOUNTER → 2022-10-04 | Outpatient (CLI) | payer MEDICARE ==
[~2022-10-04] MED LIST changes: +FOLI1TAB11 PO; +GABA-283 PO; +HUMI40KI SC; -METH2.5T48; +METH2.5T48 PO
== END ==
LOC: M LABSMTC 10:05
PROVIDERS: ATTEND Anesthesiology
DX: Z01.818 Encounter for other preprocedural examination (principal)

== ENCOUNTER 2022-10-09 10:58 | Day surgery (SDC) | payer MEDICARE ==
[~2022-10-09] VITALS: Ht 144.8 cm; Wt 78.7 kg
[2022-10-09] MEDS ORDERED: INSULIN LISPRO (NovoLOG) PER UNIT SC PRN (12:10)
[2022-10-09] MEDS ORDERED: LR 1,000 ML IV SCH ×2 (12:10→15:30)
[2022-10-09] MEDS ORDERED: OXYMETAZOLINE 0.05% NASAL SPRAY (AFRIN) As Ordered ONE ×2 (13:26→14:35)
[2022-10-09] MEDS ORDERED: ONDANSETRON 4MG 2ML VIAL IV ONE (14:00)
[2022-10-09] MEDS ORDERED: fentaNYL 100 MCG/2 ML INJECTION As Ordered ONE (14:05)
[2022-10-09] MEDS ORDERED: MIDAZOLAM INJ 2MG/2ML VIAL As Ordered ONE (14:05)
[2022-10-09] MEDS ORDERED: LIDOCAINE 2% 100MG/5ML SDV (FOR ANES.) As Ordered ONE (14:26)
[2022-10-09] MEDS ORDERED: METOCLOPRAMIDE INJ 10MG/2ML VIAL As Ordered ONE (14:56)
[2022-10-09] MEDS ORDERED: LABETALOL 100MG/20ML VIAL As Ordered ONE (14:57)
[2022-10-09] MEDS ORDERED: ACETAMINOPHEN 1000MG 100ML IV BAG As Ordered ONE (14:58)
[2022-10-09] MEDS ORDERED: LIDOCAINE W/EPINEPHRINE 1% 20ML VIAL As Ordered ONE (15:06)
[2022-10-09] MEDS ORDERED: ONDANSETRON 4MG 2ML VIAL As Ordered ONE (15:14)
[2022-10-09] MEDS ORDERED: ONDANSETRON 4MG 2ML VIAL IV PRN (15:30)
[2022-10-09] MEDS ORDERED: MEPERIDINE 25 MG/ML 1ML VIAL IV PRN (15:30)
[2022-10-09] MEDS ORDERED: oxyCODONE 5MG TAB PO PRN (15:30)
[2022-10-09] MEDS ORDERED: fentaNYL 100 MCG/2 ML INJECTION IV PRN (15:30)
[2022-10-09 16:48] VITALS: BP 163/78
== END 2022-10-09 17:03 | disposition home or self-care (01) ==
LOC: M SDC 10:58
PROVIDERS: ATTEND Otolaryngology
DX: C02.0 Malignant neoplasm of dorsal surface of tongue (principal); K13.29 Other disturbances of oral epithelium, including tongue; I10 Essential (primary) hypertension; E11.9 Type 2 diabetes mellitus without complications; E78.5 Hyperlipidemia, unspecified; M19.90 Unspecified osteoarthritis, unspecified site; K50.012 Crohn's disease of small intestine with intestinal obstruction; D50.9 Iron deficiency anemia, unspecified; Z79.899 Other long term (current) drug therapy; Z79.84 Long term (current) use of oral hypoglycemic drugs; Z88.8 Allergy status to other drugs, medicaments and biological substances; Z88.1 Allergy status to other antibiotic agents; Z91.018 Allergy to other foods; Z87.891 Personal history of nicotine dependence
CPT/HCPCS: 31536; 88305; J2250; J2405; J2765; J3010

== ENCOUNTER 2022-12-05 17:11 | Inpatient (IN) | payer MEDICARE ==
[~2022-12-05] VITALS: Ht 144.8 cm; Wt 79.6 kg
[~2022-12-05 17:11] MED LIST changes: +ARTIDRO4 OU; -ENAL-36 PO; +ENAL1TAB50 PO; +ENAL1TAB52 PO; -ENAL20TA11 PO; -POLYOPD OU
[2022-12-05 17:54] LABS: BASO % 0.6 % (0.0-1.0); EOS # 0.1 10^3/uL (0.0-0.5); EOS % 1.4 % (0.0-3.0); HEMATOCRIT 40.3 % (36.0-47.0); HEMOGLOBIN 13.6 g/dl (12.0-15.5); LYMPH # 1.4 10^3/uL (1.5-5.0); LYMPH % 21.5 % (24.0-44.0); MEAN CORPUSCULAR HEMOGLOBIN 32.2 pg (27.0-33.0); MEAN CORPUSCULAR HGB CONC 33.7 g/dl (32.0-36.5); MEAN CORPUSCULAR VOLUME 95.5 fl (80.0-96.0); MONO # 0.4 10^3/uL (0.0-0.8); MONO % 6.2 % (2.0-8.0); NEUTROPHILS # 4.6 10^3/uL (1.5-8.5); NEUTROPHILS % 69.8 % (36.0-66.0); PLATELET COUNT, AUTOMATED 188 10^3/uL (150-450); RED BLOOD COUNT 4.22 10^6/uL (4.00-5.40); WHITE BLOOD COUNT 6.6 10^3/uL (4.0-10.0)
[2022-12-05] MEDS ORDERED: ONDANSETRON 4MG 2ML VIAL IV ONE (17:55)
[2022-12-05 18:13] LABS: ERYTHROCYTE SEDIMENTATION RATE 6 mm/hr (0-30)
[2022-12-05] MEDS ORDERED: MORPHINE 4 MG/ML 1ML VIAL IV ONE (18:15)
[2022-12-05] MEDS ORDERED: NS 1,000 ML IV SCH (18:15)
[2022-12-05 18:20] LABS: AMYLASE 47 U/L (30-118); C REACTIVE PROTEIN QUANTITATIV < 0.40 MG/DL (<1.0)
[2022-12-05 18:22] LABS: ALBUMIN 3.9 G/DL (3.2-5.2); ALKALINE PHOSPHATASE 104 U/L (46-116); ALT/SGPT 27 U/L (7.0-40); AST/SGOT 75 U/L (<34); BILIRUBIN,DIRECT 0.4 MG/DL (<0.4); BILIRUBIN,TOTAL 1.3 MG/DL (0.3-1.2); LIPASE 49 U/L (12-53); TOTAL PROTEIN 7.1 G/DL (5.7-8.2)
[2022-12-05] MEDS ORDERED: ISOVUE-370 76% 100ML VIAL As Ordered ONE (18:24)
[2022-12-05] MEDS ORDERED: METOCLOPRAMIDE INJ 10MG/2ML VIAL IV ONE (18:30)
[2022-12-05] MEDS ORDERED: NS 2,320 ML in IV 1 EA IV ONE (19:10)
[2022-12-05] MEDS ORDERED: PIPERACILLIN/TAZOBACTAM SOD 3.375 GM in D5W MINI-BAG PLUS 50 ML IV ONE (19:10)
[2022-12-05] MEDS ORDERED: methylPREDNISolone 125MG 2ML VIAL IV ONE (19:45)
[2022-12-05] MEDS ORDERED: MORPHINE 4 MG/ML 1ML VIAL IV PRN (20:00)
[2022-12-05 20:33] LABS: RSV AMPLIFICATION NEGATIVE (NEGATIVE)
[2022-12-05] MEDS ORDERED: HOME MED LIST COMPLETE! XX SCH (20:45)
[2022-12-05] MEDS ORDERED: CIPROFLOXACIN 400 MG in IV 1 EA IV SCH (21:10)
[2022-12-05] MEDS ORDERED: DEXTROSE 50% 50ML SYRINGE IV PRN (21:55)
[2022-12-05] MEDS ORDERED: GLUCOSE 4GM CHEW TABLET PO PRN (21:55)
[2022-12-05] MEDS ORDERED: GLUCAGON INJ 1MG VIAL SC PRN (21:55)
[2022-12-05] MEDS ORDERED: PROMETHAZINE 25MG/ML 1ML VIAL IV PRN (21:55)
[2022-12-05 22:00] VITALS: BP 156/81
[2022-12-05] MEDS ORDERED: metroNIDAZOLE 500 MG in IV 1 EA IV SCH (22:00)
[2022-12-05] MEDS ORDERED: JANU100T PO (22:05)
[2022-12-05] MEDS: ATORVASTATIN 10 MG TAB PO SCH (22:10)
[2022-12-05] MEDS: NS 1,000 ML IV SCH (22:11)
[2022-12-05] MEDS: METOPROLOL TART 25 MG TABLET PO SCH (22:11)
[2022-12-05] MEDS: GABAPENTIN 400MG CAP PO SCH (22:11)
[2022-12-05] MEDS: CALCIUM/VITAMIN D 500 MG TAB PO SCH (22:11)
[2022-12-05] MEDS: MORPHINE 2 MG/ML 1ML VIAL IV PRN (22:25)
[2022-12-06 01:50] VITALS: BP 129/61
[2022-12-06] MEDS: PIPERACILLIN/TAZOBACTAM SOD 3.375 GM in D5W MINI-BAG PLUS 50 ML IV SCH ×4 (01:58→20:28)
[2022-12-06] MEDS: PERCOCET 5MG/325MG TAB PO PRN ×3 (01:59→16:09)
[2022-12-06] MEDS: ONDANSETRON 4MG TAB PO PRN ×2 (04:06→20:35)
[2022-12-06 05:30] VITALS: BP 147/72
[2022-12-06] MEDS: INSULIN LISPRO (NovoLOG) PER UNIT SC SCH ×3 (05:50→17:19)
[2022-12-06] MEDS: MORPHINE 2 MG/ML 1ML VIAL IV PRN ×3 (05:51→20:32)
[2022-12-06] MEDS: HEPARIN SOD (PORCINE) 5000UNITS/ML 1ML VIAL/SYRINGE SC SCH ×3 (05:59→20:27)
[2022-12-06 06:57] LABS: BASO % 0.2 % (0.0-1.0); HEMATOCRIT 34.8 % (36.0-47.0); HEMOGLOBIN 11.8 g/dl (12.0-15.5); LYMPH # 0.9 10^3/uL (1.5-5.0); LYMPH % 15.5 % (24.0-44.0); MEAN CORPUSCULAR HEMOGLOBIN 32.7 pg (27.0-33.0); MEAN CORPUSCULAR HGB CONC 33.9 g/dl (32.0-36.5); MEAN CORPUSCULAR VOLUME 96.4 fl (80.0-96.0); MONO # 0.1 10^3/uL (0.0-0.8); MONO % 1.4 % (2.0-8.0); NEUTROPHILS # 4.6 10^3/uL (1.5-8.5); NEUTROPHILS % 82.5 % (36.0-66.0); PLATELET COUNT, AUTOMATED 150 10^3/uL (150-450); RED BLOOD COUNT 3.61 10^6/uL (4.00-5.40); WHITE BLOOD COUNT 5.6 10^3/uL (4.0-10.0)
[2022-12-06] MEDS: NS 1,000 ML IV SCH ×3 (07:00→20:27)
[2022-12-06] MEDS: GASTROGRAFIN SOLUTION 30ML PO SCH ×2 (07:00→07:30)
[2022-12-06 07:30] LABS: BLOOD UREA NITROGEN 12 MG/DL (9-23); CALCIUM LEVEL 8.5 MG/DL (8.3-10.6); CARBON DIOXIDE LEVEL 27 MMOL/L (20-31); CHLORIDE LEVEL 102 MMOL/L (98-107); CREATININE FOR GFR 0.71 MG/DL (0.55-1.30); GLOMERULAR FILTRATION RATE > 60.0 (>45); GLUCOSE, FASTING 235 MG/DL (74-106); MAGNESIUM LEVEL 1.3 MG/DL (1.8-2.4); POTASSIUM SERUM 4.2 MMOL/L (3.5-5.1); SODIUM LEVEL 138 MMOL/L (136-145)
[2022-12-06] MEDS ORDERED: MAGNESIUM OXIDE 400MG TAB (MAG-OX) PO ONE (07:30)
[2022-12-06] MEDS ORDERED: INSULIN LISPRO (NovoLOG) PER UNIT SC SCH ×4 (07:30→21:00)
[2022-12-06 07:31] LABS: C REACTIVE PROTEIN QUANTITATIV < 0.40 MG/DL (<1.0)
[2022-12-06] MEDS: CYANOCOBALAMIN 500 MCG TAB PO SCH (08:58)
[2022-12-06] MEDS: PANTOPRAZOLE 40MG TAB (PROTONIX) PO SCH (08:58)
[2022-12-06] MEDS: MAG SULF 1GM/100ML (MAG RUN) 1 GM in IV 1 EA IV SCH ×2 (08:58→11:05)
[2022-12-06] MEDS: FERROUS SULFATE 325MG TAB PO SCH ×2 (08:59→20:28)
[2022-12-06] MEDS: ENALAPRIL MALEATE 10 MG TAB PO SCH (08:59)
[2022-12-06] MEDS: CALCIUM/VITAMIN D 500 MG TAB PO SCH ×2 (08:59→20:27)
[2022-12-06] MEDS: FOLIC ACID 1MG TAB PO SCH (09:00)
[2022-12-06] MEDS: GABAPENTIN 400MG CAP PO SCH ×3 (09:00→20:28)
[2022-12-06] MEDS: MAGNESIUM OXIDE 400MG TAB (MAG-OX) PO SCH (09:00)
[2022-12-06] MEDS: METOPROLOL TART 25 MG TABLET PO SCH ×2 (09:00→20:27)
[2022-12-06] MEDS: methylPREDNISolone 40MG 1ML VIAL IV SCH ×2 (09:00→20:27)
[2022-12-06 10:00] VITALS: BP 99/52
[2022-12-06 14:00] VITALS: BP 141/71
[2022-12-06 18:00] VITALS: BP 139/71
[2022-12-06] MEDS: ATORVASTATIN 10 MG TAB PO SCH (20:28)
[2022-12-06 21:30] VITALS: BP_SYST 129; BP_DIAS 61; BP_DIAS 69
[2022-12-07] MEDS: PIPERACILLIN/TAZOBACTAM SOD 3.375 GM in D5W MINI-BAG PLUS 50 ML IV SCH ×2 (01:18→09:45)
[2022-12-07] MEDS: PERCOCET 5MG/325MG TAB PO PRN ×3 (01:19→13:10)
[2022-12-07] MEDS: MORPHINE 2 MG/ML 1ML VIAL IV PRN ×2 (03:13→09:52)
[2022-12-07 06:00] VITALS: BP 146/79
[2022-12-07] MEDS: HEPARIN SOD (PORCINE) 5000UNITS/ML 1ML VIAL/SYRINGE SC SCH (06:00)
[2022-12-07 06:35] LABS: BASO % 0.1 % (0.0-1.0); HEMATOCRIT 34.3 % (36.0-47.0); HEMOGLOBIN 11.2 g/dl (12.0-15.5); LYMPH # 0.8 10^3/uL (1.5-5.0); MEAN CORPUSCULAR HEMOGLOBIN 32.1 pg (27.0-33.0); MEAN CORPUSCULAR HGB CONC 32.7 g/dl (32.0-36.5); MEAN CORPUSCULAR VOLUME 98.3 fl (80.0-96.0); MONO # 0.3 10^3/uL (0.0-0.8); MONO % 3.9 % (2.0-8.0); NEUTROPHILS # 6.1 10^3/uL (1.5-8.5); NEUTROPHILS % 84.4 % (36.0-66.0); PLATELET COUNT, AUTOMATED 154 10^3/uL (150-450); RED BLOOD COUNT 3.49 10^6/uL (4.00-5.40); WHITE BLOOD COUNT 7.3 10^3/uL (4.0-10.0)
[2022-12-07 07:02] LABS: C REACTIVE PROTEIN QUANTITATIV < 0.40 MG/DL (<1.0)
[2022-12-07 07:04] LABS: BLOOD UREA NITROGEN 13 MG/DL (9-23); CALCIUM LEVEL 8.5 MG/DL (8.3-10.6); CARBON DIOXIDE LEVEL 27 MMOL/L (20-31); CHLORIDE LEVEL 103 MMOL/L (98-107); CREATININE FOR GFR 0.69 MG/DL (0.55-1.30); GLOMERULAR FILTRATION RATE > 60.0 (>45); GLUCOSE, FASTING 205 MG/DL (74-106); MAGNESIUM LEVEL 1.8 MG/DL (1.8-2.4); SODIUM LEVEL 137 MMOL/L (136-145)
[2022-12-07] MEDS ORDERED: MAGNESIUM OXIDE 400MG TAB (MAG-OX) PO SCH (09:00)
[2022-12-07] MEDS: ONDANSETRON 4MG TAB PO PRN (09:35)
[2022-12-07] MEDS: methylPREDNISolone 40MG 1ML VIAL IV SCH (09:42)
[2022-12-07] MEDS: INSULIN LISPRO (NovoLOG) PER UNIT SC SCH ×2 (09:42→13:12)
[2022-12-07] MEDS: NS 1,000 ML IV SCH (09:43)
[2022-12-07 10:00] VITALS: BP 136/73
[2022-12-07] MEDS: FERROUS SULFATE 325MG TAB PO SCH (11:17)
[2022-12-07] MEDS: FOLIC ACID 1MG TAB PO SCH (11:17)
[2022-12-07] MEDS: MAGNESIUM OXIDE 400MG TAB (MAG-OX) PO SCH (11:17)
[2022-12-07] MEDS: GABAPENTIN 400MG CAP PO SCH (11:18)
[2022-12-07 11:20] VITALS: BP 136/73
[2022-12-07] MEDS: CYANOCOBALAMIN 500 MCG TAB PO SCH (11:20)
[2022-12-07] MEDS: METOPROLOL TART 25 MG TABLET PO SCH (11:20)
[2022-12-07] MEDS: CALCIUM/VITAMIN D 500 MG TAB PO SCH (11:20)
[2022-12-07] MEDS: PANTOPRAZOLE 40MG TAB (PROTONIX) PO SCH (11:20)
[2022-12-07] MEDS: ENALAPRIL MALEATE 10 MG TAB PO SCH (11:21)
[2022-12-07] MEDS ORDERED: PRED10TA2 PO (12:26)
[2022-12-07] MEDS ORDERED: PERCOCET PO (12:26)
[2022-12-07] MEDS ORDERED: ONDA4TAB6 PO (13:22)
[2022-12-08] MEDS ORDERED: METHOTREXATE 2.5MG TAB PO SCH ×3 (09:00)
== END 2022-12-07 14:05 | disposition home or self-care (01) | DRG 386 ==
LOC: M ED 17:11 → M ED INP 20:29 → M MSPAV 21:47
PROVIDERS: ADMIT Family Medicine; ATTEND Internal Medicine
DX: K50.90 Crohn's disease, unspecified, without complications (principal); E87.20 Acidosis, unspecified; K76.6 Portal hypertension; Z68.42 Body mass index [BMI] 45.0-49.9, adult; D84.821 Immunodeficiency due to drugs; E83.42 Hypomagnesemia; E11.42 Type 2 diabetes mellitus with diabetic polyneuropathy; K74.60 Unspecified cirrhosis of liver; I10 Essential (primary) hypertension; E78.5 Hyperlipidemia, unspecified; E66.9 Obesity, unspecified; K21.9 Gastro-esophageal reflux disease without esophagitis; Z90.49 Acquired absence of other specified parts of digestive tract; Z87.891 Personal history of nicotine dependence; Z79.84 Long term (current) use of oral hypoglycemic drugs; Z79.899 Other long term (current) drug therapy; Z88.1 Allergy status to other antibiotic agents; Z88.8 Allergy status to other drugs, medicaments and biological substances; Z91.018 Allergy to other foods

== ENCOUNTER → 2022-12-11 | Outpatient (CLI) | payer MEDICARE ==
[~2022-12-11] MED LIST changes: +AMOX875T2 PO; +ONDA4TAB6 PO; +RISATAB3 PO
[2022-12-11 14:55] LABS: BASO % 0.6 % (0.0-1.0); EOS # 0.1 10^3/uL (0.0-0.5); EOS % 1.8 % (0.0-3.0); HEMATOCRIT 36.4 % (36.0-47.0); HEMOGLOBIN 12.5 g/dl (12.0-15.5); LYMPH # 1.6 10^3/uL (1.5-5.0); LYMPH % 32.2 % (24.0-44.0); MEAN CORPUSCULAR HEMOGLOBIN 32.2 pg (27.0-33.0); MEAN CORPUSCULAR HGB CONC 34.3 g/dl (32.0-36.5); MEAN CORPUSCULAR VOLUME 93.8 fl (80.0-96.0); MONO # 0.5 10^3/uL (0.0-0.8); MONO % 9.3 % (2.0-8.0); NEUTROPHILS # 2.8 10^3/uL (1.5-8.5); NEUTROPHILS % 55.7 % (36.0-66.0); PLATELET COUNT, AUTOMATED 156 10^3/uL (150-450); RED BLOOD COUNT 3.88 10^6/uL (4.00-5.40)
[2022-12-11 15:21] LABS: ALBUMIN 3.6 G/DL (3.2-5.2); ALKALINE PHOSPHATASE 104 U/L (46-116); ALT/SGPT 25 U/L (7.0-40); AST/SGOT 36 U/L (<34); BILIRUBIN,DIRECT 0.5 MG/DL (<0.4); BILIRUBIN,TOTAL 1.2 MG/DL (0.3-1.2); BLOOD UREA NITROGEN 7 MG/DL (9-23); CREATININE FOR GFR 0.74 MG/DL (0.55-1.30); GLOMERULAR FILTRATION RATE > 60.0 (>45); IRON (FE) 66 UG/DL (50-170); PERCENT SATURATION 19.4 % (13.2-45.0); TOTAL IRON BINDING CAPACITY 341 UG/DL (250-425); TOTAL PROTEIN 6.8 G/DL (5.7-8.2)
[2022-12-11 15:22] LABS: VITAMIN B12 LEVEL 1718 PG/ML (211-911)
[2022-12-11 15:23] LABS: FOLATE > 24.0 NG/ML (>5.4)
[2022-12-11 15:41] LABS: HEPATITIS B SURFACE ANTIGEN NEGATIVE (NEGATIVE)
[2022-12-11 16:02] LABS: HEPATITIS B CORE ANTIBODY IGM NEGATIVE (NEGATIVE)
[2022-12-16 17:07] LABS: ANCA-ATYPICAL <1:20 titer (Neg:<1:20); ANTI-MITOCHONDRIAL ANTIBODY <20.0 Units (0.0-20.0); ANTINUCLEAR ANTIBODIES DIRECT Negative (Negative); CYTOPLASMIC NEUTROP AB ANCA-C <1:20 titer (Neg:<1:20); LIVER-KIDNEY MICROSOMAL ABY <20.1 Units (0.0-20.0); PERINUCLEAR AB ANCA-P <1:20 titer (Neg:<1:20)
== END ==
LOC: M LAB 13:07
PROVIDERS: ATTEND Internal Medicine Gastroenterology
DX: R10.11 Right upper quadrant pain (principal); R74.01 Elevation of levels of liver transaminase levels

== ENCOUNTER 2022-12-18 10:55 | Inpatient (IN) | payer MEDICARE ==
[~2022-12-18] VITALS: Ht 144.8 cm; Wt 82.3 kg
[~2022-12-18 10:55] MED LIST changes: -AMOX875T2 PO; -RISATAB3 PO
[2022-12-18] MEDS ORDERED: NS 1,000 ML IV SCH (11:20)
[2022-12-18 11:49] LABS: BASO % 0.4 % (0.0-1.0); EOS % 0.2 % (0.0-3.0); HEMATOCRIT 39.3 % (36.0-47.0); LYMPH # 0.9 10^3/uL (1.5-5.0); LYMPH % 10.9 % (24.0-44.0); MEAN CORPUSCULAR HEMOGLOBIN 31.3 pg (27.0-33.0); MEAN CORPUSCULAR HGB CONC 33.1 g/dl (32.0-36.5); MEAN CORPUSCULAR VOLUME 94.7 fl (80.0-96.0); MONO # 0.4 10^3/uL (0.0-0.8); NEUTROPHILS # 7.1 10^3/uL (1.5-8.5); NEUTROPHILS % 83.3 % (36.0-66.0); PLATELET COUNT, AUTOMATED 175 10^3/uL (150-450); RED BLOOD COUNT 4.15 10^6/uL (4.00-5.40); WHITE BLOOD COUNT 8.5 10^3/uL (4.0-10.0)
[2022-12-18 12:01] LABS: INR 0.88; PROTHROMBIN TIME 12.1 SECONDS (12.5-14.5)
[2022-12-18 12:11] LABS: LIPASE 29 U/L (12-53)
[2022-12-18 12:13] LABS: ALKALINE PHOSPHATASE 120 U/L (46-116); ALT/SGPT 20 U/L (7.0-40); AST/SGOT 26 U/L (<34); BILIRUBIN,DIRECT 0.5 MG/DL (<0.4); BILIRUBIN,TOTAL 1.3 MG/DL (0.3-1.2); BLOOD UREA NITROGEN 15 MG/DL (9-23); CALCIUM LEVEL 9.1 MG/DL (8.3-10.6); CARBON DIOXIDE LEVEL 24 MMOL/L (20-31); CHLORIDE LEVEL 102 MMOL/L (98-107); CREATININE FOR GFR 0.72 MG/DL (0.55-1.30); GLOMERULAR FILTRATION RATE > 60.0 (>45); GLUCOSE, FASTING 188 MG/DL (74-106); POTASSIUM SERUM 3.7 MMOL/L (3.5-5.1); SODIUM LEVEL 139 MMOL/L (136-145); TOTAL PROTEIN 6.9 G/DL (5.7-8.2)
[2022-12-18] MEDS ORDERED: METOCLOPRAMIDE INJ 10MG/2ML VIAL IV ONE (12:20)
[2022-12-18] MEDS: MORPHINE 4 MG/ML 1ML VIAL IV PRN ×2 (12:42→16:30)
[2022-12-18] MEDS: GASTROGRAFIN SOLUTION 30ML PO SCH ×2 (13:17→13:20)
[2022-12-18 13:47] LABS: RSV AMPLIFICATION NEGATIVE (NEGATIVE)
[2022-12-18] MEDS ORDERED: ISOVUE-370 76% 100ML VIAL As Ordered ONE (14:15)
[2022-12-18] MEDS ORDERED: MORPHINE 4 MG/ML 1ML VIAL IV PRN (16:00)
[2022-12-18] MEDS ORDERED: PERC5TAB12 PO (16:09)
[2022-12-18] MEDS ORDERED: ONDA4TAB6 PO (16:09)
[2022-12-18] MEDS ORDERED: HOME MED LIST COMPLETE! XX SCH (16:10)
[2022-12-18] MEDS ORDERED: DEXTROSE 50% 50ML SYRINGE IV PRN (17:40)
[2022-12-18] MEDS ORDERED: ACETAMINOPHEN TAB 650MG DOSE (2X325MG) PO PRN (17:40)
[2022-12-18] MEDS ORDERED: GLUCOSE 4GM CHEW TABLET PO PRN (17:40)
[2022-12-18] MEDS ORDERED: GLUCAGON INJ 1MG VIAL SC PRN (17:40)
[2022-12-18] MEDS: INSULIN LISPRO (NovoLOG) PER UNIT SC SCH ×3 (18:00→23:39)
[2022-12-18] MEDS: NS 1,000 ML IV SCH (18:58)
[2022-12-18] MEDS ORDERED: NS 1,000 ML IV ONE (19:00)
[2022-12-18] MEDS: CYANOCOBALAMIN 500 MCG TAB PO SCH (19:02)
[2022-12-18] MEDS: PANTOPRAZOLE 40MG TAB (PROTONIX) PO SCH (19:07)
[2022-12-18] MEDS: ENALAPRIL MALEATE 10 MG TAB PO SCH (19:07)
[2022-12-18] MEDS: PIPERACILLIN/TAZOBACTAM SOD 3.375 GM in D5W MINI-BAG PLUS 50 ML IV SCH (19:09)
[2022-12-18] MEDS: ONDANSETRON 4MG 2ML VIAL IV PRN (19:12)
[2022-12-18] MEDS: ATORVASTATIN 10 MG TAB PO SCH (21:52)
[2022-12-18] MEDS: FERROUS SULFATE 325MG TAB PO SCH (21:52)
[2022-12-18] MEDS: GABAPENTIN 400MG CAP PO SCH (21:52)
[2022-12-18] MEDS: METOPROLOL TART 25 MG TABLET PO SCH (21:52)
[2022-12-18] MEDS: MORPHINE 2 MG/ML 1ML VIAL IV PRN (23:53)
[2022-12-19 00:05] VITALS: BP 126/60
[2022-12-19] MEDS: PIPERACILLIN/TAZOBACTAM SOD 3.375 GM in D5W MINI-BAG PLUS 50 ML IV SCH ×4 (00:27→18:14)
[2022-12-19] MEDS: NS 1,000 ML IV SCH ×3 (02:00→18:16)
[2022-12-19 03:26] LABS: BASO % 0.3 % (0.0-1.0); EOS % 0.4 % (0.0-3.0); HEMATOCRIT 34.2 % (36.0-47.0); HEMOGLOBIN 11.5 g/dl (12.0-15.5); LYMPH # 1.8 10^3/uL (1.5-5.0); LYMPH % 17.6 % (24.0-44.0); MEAN CORPUSCULAR HEMOGLOBIN 32.1 pg (27.0-33.0); MEAN CORPUSCULAR HGB CONC 33.6 g/dl (32.0-36.5); MEAN CORPUSCULAR VOLUME 95.5 fl (80.0-96.0); MONO # 0.9 10^3/uL (0.0-0.8); MONO % 9.1 % (2.0-8.0); NEUTROPHILS # 7.3 10^3/uL (1.5-8.5); NEUTROPHILS % 72.2 % (36.0-66.0); PLATELET COUNT, AUTOMATED 178 10^3/uL (150-450); RED BLOOD COUNT 3.58 10^6/uL (4.00-5.40)
[2022-12-19 03:49] LABS: BLOOD UREA NITROGEN 11 MG/DL (9-23); CARBON DIOXIDE LEVEL 26 MMOL/L (20-31); CHLORIDE LEVEL 103 MMOL/L (98-107); CREATININE FOR GFR 0.71 MG/DL (0.55-1.30); GLOMERULAR FILTRATION RATE > 60.0 (>45); GLUCOSE, FASTING 156 MG/DL (74-106); MAGNESIUM LEVEL 1.3 MG/DL (1.8-2.4); POTASSIUM SERUM 3.4 MMOL/L (3.5-5.1); SODIUM LEVEL 137 MMOL/L (136-145)
[2022-12-19] MEDS: MAG SULF 1GM/100ML (MAG RUN) 1 GM in IV 1 EA IV SCH ×2 (04:31→05:36)
[2022-12-19 04:49] VITALS: BP 138/62
[2022-12-19] MEDS: INSULIN LISPRO (NovoLOG) PER UNIT SC SCH ×4 (04:58→20:11)
[2022-12-19] MEDS: ONDANSETRON 4MG 2ML VIAL IV PRN ×3 (06:36→20:19)
[2022-12-19] MEDS ORDERED: KCL 10MEQ/100ML SWI (KRUN) 10 MEQ in IV 1 EA IV ONE ×2 (07:00→08:00)
[2022-12-19 08:08] VITALS: BP 139/62
[2022-12-19] MEDS: ENALAPRIL MALEATE 10 MG TAB PO SCH (08:12)
[2022-12-19] MEDS: FERROUS SULFATE 325MG TAB PO SCH ×2 (08:12→20:19)
[2022-12-19] MEDS: GABAPENTIN 400MG CAP PO SCH ×3 (08:12→20:19)
[2022-12-19] MEDS: METOPROLOL TART 25 MG TABLET PO SCH ×2 (08:13→20:21)
[2022-12-19] MEDS: MORPHINE 2 MG/ML 1ML VIAL IV PRN ×3 (08:13→20:19)
[2022-12-19] MEDS: PANTOPRAZOLE 40MG TAB (PROTONIX) PO SCH (08:13)
[2022-12-19] MEDS ORDERED: MAG SULF 1GM/100ML (MAG RUN) 1 GM in IV 1 EA IV ONE (09:00)
[2022-12-19 11:57] VITALS: BP 143/61
[2022-12-19 12:04] LABS: HEMATOCRIT 35.4 % (36.0-47.0); HEMOGLOBIN 11.8 g/dl (12.0-15.5)
[2022-12-19] MEDS: methylPREDNISolone 40MG 1ML VIAL IV SCH (15:35)
[2022-12-19 16:08] VITALS: BP 126/61
[2022-12-19 18:25] LABS: HEMATOCRIT 36.2 % (36.0-47.0)
[2022-12-19 20:00] VITALS: BP 143/66
[2022-12-19] MEDS: ATORVASTATIN 10 MG TAB PO SCH (20:19)
[2022-12-20 00:42] LABS: HEMATOCRIT 33.3 % (36.0-47.0); HEMOGLOBIN 11.3 g/dl (12.0-15.5)
[2022-12-20] MEDS: PIPERACILLIN/TAZOBACTAM SOD 3.375 GM in D5W MINI-BAG PLUS 50 ML IV SCH ×2 (01:47→06:20)
[2022-12-20] MEDS: MORPHINE 2 MG/ML 1ML VIAL IV PRN ×3 (03:24→17:41)
[2022-12-20] MEDS: ONDANSETRON 4MG 2ML VIAL IV PRN ×3 (03:24→16:34)
[2022-12-20] MEDS: methylPREDNISolone 40MG 1ML VIAL IV SCH ×2 (03:24→16:10)
[2022-12-20 04:37] VITALS: BP 121/61
[2022-12-20 06:39] LABS: BASO % 0.1 % (0.0-1.0); HEMATOCRIT 33.2 % (36.0-47.0); HEMOGLOBIN 11.3 g/dl (12.0-15.5); LYMPH % 14.4 % (24.0-44.0); MEAN CORPUSCULAR HEMOGLOBIN 32.2 pg (27.0-33.0); MEAN CORPUSCULAR VOLUME 94.6 fl (80.0-96.0); MONO # 0.2 10^3/uL (0.0-0.8); MONO % 2.7 % (2.0-8.0); NEUTROPHILS # 5.5 10^3/uL (1.5-8.5); NEUTROPHILS % 82.1 % (36.0-66.0); PLATELET COUNT, AUTOMATED 149 10^3/uL (150-450); RED BLOOD COUNT 3.51 10^6/uL (4.00-5.40); WHITE BLOOD COUNT 6.8 10^3/uL (4.0-10.0)
[2022-12-20 07:06] LABS: BLOOD UREA NITROGEN 9 MG/DL (9-23); CALCIUM LEVEL 8.5 MG/DL (8.3-10.6); CARBON DIOXIDE LEVEL 28 MMOL/L (20-31); CHLORIDE LEVEL 103 MMOL/L (98-107); CREATININE FOR GFR 0.66 MG/DL (0.55-1.30); GLOMERULAR FILTRATION RATE > 60.0 (>45); GLUCOSE, FASTING 191 MG/DL (74-106); MAGNESIUM LEVEL 1.7 MG/DL (1.8-2.4); SODIUM LEVEL 139 MMOL/L (136-145)
[2022-12-20] MEDS: INSULIN LISPRO (NovoLOG) PER UNIT SC SCH ×4 (07:30→20:36)
[2022-12-20 07:43] VITALS: BP 155/72
[2022-12-20] MEDS: MAG SULF 1GM/100ML (MAG RUN) 1 GM in IV 1 EA IV SCH ×2 (08:09→09:31)
[2022-12-20] MEDS: CYANOCOBALAMIN 500 MCG TAB PO SCH (10:20)
[2022-12-20] MEDS: PANTOPRAZOLE 40MG TAB (PROTONIX) PO SCH (10:21)
[2022-12-20] MEDS: FERROUS SULFATE 325MG TAB PO SCH ×2 (10:21→20:40)
[2022-12-20] MEDS: GABAPENTIN 400MG CAP PO SCH ×3 (10:22→20:40)
[2022-12-20] MEDS: METOPROLOL TART 25 MG TABLET PO SCH ×2 (10:22→20:40)
[2022-12-20] MEDS: ENALAPRIL MALEATE 10 MG TAB PO SCH (10:23)
[2022-12-20] MEDS: LACTOBACILLUS ACIDOPHILUS CAP (BACID) PO SCH (13:25)
[2022-12-20] MEDS: AUGMENTIN 875 MG TAB PO SCH ×2 (13:25→20:40)
[2022-12-20 16:28] VITALS: BP 155/69
[2022-12-20 20:38] VITALS: BP 156/69
[2022-12-20] MEDS: ATORVASTATIN 10 MG TAB PO SCH (20:40)
[2022-12-21 03:02] VITALS: BP 145/70
[2022-12-21] MEDS: methylPREDNISolone 40MG 1ML VIAL IV SCH (03:02)
[2022-12-21 05:29] LABS: BASO % 0.1 % (0.0-1.0); HEMATOCRIT 33.3 % (36.0-47.0); LYMPH # 1.2 10^3/uL (1.5-5.0); LYMPH % 16.3 % (24.0-44.0); MEAN CORPUSCULAR HEMOGLOBIN 31.3 pg (27.0-33.0); MEAN CORPUSCULAR VOLUME 94.9 fl (80.0-96.0); MONO # 0.3 10^3/uL (0.0-0.8); MONO % 4.4 % (2.0-8.0); NEUTROPHILS # 5.7 10^3/uL (1.5-8.5); NEUTROPHILS % 78.6 % (36.0-66.0); PLATELET COUNT, AUTOMATED 187 10^3/uL (150-450); RED BLOOD COUNT 3.51 10^6/uL (4.00-5.40); WHITE BLOOD COUNT 7.2 10^3/uL (4.0-10.0)
[2022-12-21] MEDS: ONDANSETRON 4MG 2ML VIAL IV PRN (05:45)
[2022-12-21] MEDS: MORPHINE 2 MG/ML 1ML VIAL IV PRN (05:45)
[2022-12-21 05:50] LABS: BLOOD UREA NITROGEN 10 MG/DL (9-23); CALCIUM LEVEL 8.6 MG/DL (8.3-10.6); CARBON DIOXIDE LEVEL 28 MMOL/L (20-31); CHLORIDE LEVEL 103 MMOL/L (98-107); CREATININE FOR GFR 0.64 MG/DL (0.55-1.30); GLOMERULAR FILTRATION RATE > 60.0 (>45); GLUCOSE, FASTING 185 MG/DL (74-106); MAGNESIUM LEVEL 1.7 MG/DL (1.8-2.4); POTASSIUM SERUM 3.7 MMOL/L (3.5-5.1); SODIUM LEVEL 139 MMOL/L (136-145)
[2022-12-21 07:13] VITALS: BP 152/82
[2022-12-21] MEDS: MAG SULF 1GM/100ML (MAG RUN) 1 GM in IV 1 EA IV SCH ×2 (08:26→09:55)
[2022-12-21] MEDS: LACTOBACILLUS ACIDOPHILUS CAP (BACID) PO SCH (08:27)
[2022-12-21] MEDS: INSULIN LISPRO (NovoLOG) PER UNIT SC SCH (08:27)
[2022-12-21] MEDS: AUGMENTIN 875 MG TAB PO SCH (08:29)
[2022-12-21 08:30] VITALS: BP 160/72
[2022-12-21] MEDS: FERROUS SULFATE 325MG TAB PO SCH (08:30)
[2022-12-21] MEDS: ENALAPRIL MALEATE 10 MG TAB PO SCH (08:30)
[2022-12-21] MEDS: PANTOPRAZOLE 40MG TAB (PROTONIX) PO SCH (08:31)
[2022-12-21] MEDS: GABAPENTIN 400MG CAP PO SCH (08:31)
[2022-12-21] MEDS: METOPROLOL TART 25 MG TABLET PO SCH (08:32)
[2022-12-21] MEDS ORDERED: PRED20TA PO ×2 (10:01→11:11)
[2022-12-21] MEDS ORDERED: AMOX875T2 PO ×2 (10:01→11:11)
[2022-12-21] MEDS ORDERED: RISATAB3 PO (10:01)
== END 2022-12-21 12:27 | disposition home health service (06) | DRG 386 ==
LOC: M ED 10:55 → M ED INP 17:38 → ENRESERV 20:23 → M PCU 21:20 → OBSVTOIN 12-19 14:20
PROVIDERS: ADMIT Internal Medicine; ATTEND Internal Medicine
DX: K50.90 Crohn's disease, unspecified, without complications (principal); E87.20 Acidosis, unspecified; K62.5 Hemorrhage of anus and rectum; I10 Essential (primary) hypertension; E83.42 Hypomagnesemia; E11.9 Type 2 diabetes mellitus without complications; N20.0 Calculus of kidney; K80.20 Calculus of gallbladder without cholecystitis without obstruction; Z85.810 Personal history of malignant neoplasm of tongue; E66.9 Obesity, unspecified; E78.5 Hyperlipidemia, unspecified; Z68.36 Body mass index [BMI] 36.0-36.9, adult; Z79.84 Long term (current) use of oral hypoglycemic drugs; Z79.899 Other long term (current) drug therapy; Z88.1 Allergy status to other antibiotic agents; Z88.8 Allergy status to other drugs, medicaments and biological substances; Z91.018 Allergy to other foods

== ENCOUNTER → 2022-12-24 | Outpatient (CLI) | payer MEDICARE ==
[~2022-12-24] MED LIST changes: +AMOX875T2 PO; +RISATAB3 PO
[2022-12-24 15:17] LABS: HEMOGLOBIN A1c 6.7 % (4.0-6.0)
[2022-12-24 15:27] LABS: CREATININE, URINE 41.7 MG/DL; MAU/CREAT RATIO 55.1 MCG/MG (0.0-30.0)
[2022-12-24 15:34] LABS: BLOOD UREA NITROGEN 17 MG/DL (9-23); CALCIUM LEVEL 9.5 MG/DL (8.3-10.6); CARBON DIOXIDE LEVEL 25 MMOL/L (20-31); CHLORIDE LEVEL 98 MMOL/L (98-107); CREATININE FOR GFR 0.79 MG/DL (0.55-1.30); GLOMERULAR FILTRATION RATE > 60.0 (>45); GLUCOSE, FASTING 225 MG/DL (74-106); POTASSIUM SERUM 4.2 MMOL/L (3.5-5.1); SODIUM LEVEL 135 MMOL/L (136-145)
== END ==
LOC: M LAB 13:58
PROVIDERS: ATTEND Nurse Practitioner Family
DX: E11.69 Type 2 diabetes mellitus with other specified complication (principal)

== ENCOUNTER 2022-12-31 07:10 | Day surgery (SDC) | payer MEDICARE ==
[~2022-12-31] VITALS: Ht 144.8 cm; Wt 70.7 kg
[~2022-12-31 07:10] MED LIST changes: +NS 1,000 ML IV ONE
[2022-12-31] MEDS ORDERED: fentaNYL 100 MCG/2 ML INJECTION As Ordered ONE (08:34)
[2022-12-31] MEDS ORDERED: propofoL 200 MG/20 ML VIAL As Ordered ONE ×2 (08:34→09:20)
[2022-12-31] MEDS ORDERED: LIDOCAINE 2% 100MG/5ML SDV (FOR ANES.) As Ordered ONE (08:34)
[2022-12-31] MEDS ORDERED: GLUCAGON INJ 1MG VIAL As Ordered ONE (09:03)
[2022-12-31 09:55] VITALS: BP 166/74
== END 2022-12-31 10:02 | disposition home or self-care (01) ==
LOC: M OPP 07:10
PROVIDERS: ATTEND Internal Medicine Gastroenterology
DX: D12.2 Benign neoplasm of ascending colon (principal); K52.89 Other specified noninfective gastroenteritis and colitis; K64.8 Other hemorrhoids; K59.00 Constipation, unspecified; K57.30 Diverticulosis of large intestine without perforation or abscess without bleeding; R93.3 Abnormal findings on diagnostic imaging of other parts of digestive tract; R11.0 Nausea; Z79.02 Long term (current) use of antithrombotics/antiplatelets; Z79.84 Long term (current) use of oral hypoglycemic drugs; Z79.891 Long term (current) use of opiate analgesic; Z79.899 Other long term (current) drug therapy; Z88.1 Allergy status to other antibiotic agents; Z88.8 Allergy status to other drugs, medicaments and biological substances; Z91.018 Allergy to other foods
CPT/HCPCS: 43235; 45380; 45385; 88305; J1610; J3010

== ENCOUNTER → 2023-01-01 | Outpatient (CLI) | payer MEDICARE ==
[~2023-01-01] MED LIST changes: -NS 1,000 ML IV ONE
== END ==
LOC: M RAD 10:30
PROVIDERS: ATTEND Internal Medicine Gastroenterology
DX: K81.1 Chronic cholecystitis (principal); K82.8 Other specified diseases of gallbladder
CPT/HCPCS: 78227; A9537

== ENCOUNTER 2023-04-06 02:58 | Emergency (ER) | payer MEDICARE ==
[~2023-04-06] VITALS: Ht 144.8 cm; Wt 71.3 kg
[~2023-04-06 02:58] MED LIST changes: -GABA-283 PO; +GABA-284 PO
[2023-04-06 03:38] LABS: BASO % 0.9 % (0.0-1.0); HEMATOCRIT 41.2 % (36.0-47.0); LYMPH # 1.3 10^3/uL (1.5-5.0); LYMPH % 27.7 % (24.0-44.0); MEAN CORPUSCULAR HEMOGLOBIN 31.4 pg (27.0-33.0); MEAN CORPUSCULAR VOLUME 92.4 fl (80.0-96.0); MONO # 0.7 10^3/uL (0.0-0.8); MONO % 15.3 % (2.0-8.0); NEUTROPHILS # 2.6 10^3/uL (1.5-8.5); NEUTROPHILS % 55.9 % (36.0-66.0); PLATELET COUNT, AUTOMATED 170 10^3/uL (150-450); RED BLOOD COUNT 4.46 10^6/uL (4.00-5.40); WHITE BLOOD COUNT 4.6 10^3/uL (4.0-10.0)
[2023-04-06] MEDS ORDERED: HYDR-3490 PO (03:44)
[2023-04-06 04:02] LABS: ALBUMIN 4.3 G/DL (3.2-5.2); BILIRUBIN,DIRECT 0.7 MG/DL (<0.4); BILIRUBIN,TOTAL 1.8 MG/DL (0.3-1.2); TOTAL PROTEIN 7.7 G/DL (5.7-8.2)
[2023-04-06] MEDS ORDERED: KETOROLAC 30 MG/ML 1ML VIAL IV ONE (04:30)
[2023-04-06] MEDS ORDERED: ONDANSETRON 4MG 2ML VIAL IV ONE (04:30)
[2023-04-06] MEDS ORDERED: PROMETHAZINE 25MG/ML 1ML VIAL IV ONE (05:45)
[2023-04-06] MEDS ORDERED: ISOVUE-370 76% 100ML VIAL As Ordered ONE (05:57)
[2023-04-06] MEDS ORDERED: ONDA4TAB6 PO (06:55)
[2023-04-06] MEDS ORDERED: PROM25TA12 PO (06:55)
[2023-04-06 07:22] VITALS: BP 180/87; TEMP 98.2; O2SAT 96
== END 2023-04-06 07:24 | disposition home or self-care (01) ==
LOC: M ED 02:58
DX: U07.1 COVID-19 (principal); N20.9 Urinary calculus, unspecified; K76.0 Fatty (change of) liver, not elsewhere classified; R16.1 Splenomegaly, not elsewhere classified; N28.1 Cyst of kidney, acquired; E11.9 Type 2 diabetes mellitus without complications; I10 Essential (primary) hypertension; E78.5 Hyperlipidemia, unspecified; K50.90 Crohn's disease, unspecified, without complications; Z85.810 Personal history of malignant neoplasm of tongue; Z79.4 Long term (current) use of insulin; Z79.899 Other long term (current) drug therapy; Z88.1 Allergy status to other antibiotic agents; Z88.8 Allergy status to other drugs, medicaments and biological substances; Z91.018 Allergy to other foods
CPT/HCPCS: 74177; 80047; 80076; 83690; 85025; 87486; 87581; 87633; 87798; 96374; 96375; 99284; J1885; J2405; J2550; Q9967

== ENCOUNTER 2023-04-29 07:29 | Day surgery (SDC) | payer MEDICARE ==
[~2023-04-29] VITALS: Ht 144.8 cm; Wt 73.9 kg
[~2023-04-29 07:29] MED LIST changes: +BSS IRR 500ML/OMIDRIA 4ML IRR BAG (OR ONLY) As Ordered ONE; +CEFUROXIME 1MG/0.1ML INTRACAMERAL INJ As Ordered ONE; +CYCLOPENTOLATE 1% OPHTH SOLN 2ML BTL OD SCH; +LIDOCAINE 1% SDV 5ML VIAL As Ordered ONE; +PHENYLEPHRINE 2.5% OPHTH SOL 2ML OD SCH; +PROM25TA12 PO; +PROPARACAINE 0.5% OPHTH SOL 15ML OD ONE; +TROPICAMIDE 1% OPHTH SOLN 15ML OD SCH
[2023-04-29] MEDS ORDERED: POLYTRIM OPTH DROPS 10ML OD SCH (07:40)
[2023-04-29] MEDS ORDERED: POLYTRIM OPTH DROPS 10ML As Ordered ONE (07:55)
[2023-04-29] MEDS ORDERED: fentaNYL 100 MCG/2 ML INJECTION As Ordered ONE (08:51)
[2023-04-29] MEDS ORDERED: ONDANSETRON 4MG 2ML VIAL As Ordered ONE (08:51)
[2023-04-29] MEDS ORDERED: dexmedeTOMIDine (4MCG/ML)200MCG/50ML BTL (PRECEDEX) As Ordered ONE (08:54)
[2023-04-29] MEDS ORDERED: LABETALOL 100MG/20ML VIAL As Ordered ONE (08:58)
[2023-04-29 09:07] VITALS: BP 198/92; TEMP 98; O2SAT 97
== END 2023-04-29 09:25 | disposition home or self-care (01) ==
LOC: M SDC 07:29
PROVIDERS: ATTEND Ophthalmology
DX: H25.11 Age-related nuclear cataract, right eye (principal); I10 Essential (primary) hypertension; E78.5 Hyperlipidemia, unspecified; E11.9 Type 2 diabetes mellitus without complications; K57.92 Diverticulitis of intestine, part unspecified, without perforation or abscess without bleeding; Z87.891 Personal history of nicotine dependence; J44.9 Chronic obstructive pulmonary disease, unspecified; F41.9 Anxiety disorder, unspecified; M81.0 Age-related osteoporosis without current pathological fracture; D64.9 Anemia, unspecified; Z79.899 Other long term (current) drug therapy; Z79.84 Long term (current) use of oral hypoglycemic drugs; Z91.018 Allergy to other foods; Z88.8 Allergy status to other drugs, medicaments and biological substances
CPT/HCPCS: 66984; J0697; J1097; J1920; J2405; J3010; V2632

== ENCOUNTER 2023-06-24 06:28 | Day surgery (SDC) | payer MEDICARE ==
[~2023-06-24] VITALS: Ht 144.8 cm; Wt 75.7 kg
[~2023-06-24 06:28] MED LIST changes: -BSS IRR 500ML/OMIDRIA 4ML IRR BAG (OR ONLY) As Ordered ONE; -CEFD300C41 PO; +CEFD300C42 PO; -CEFUROXIME 1MG/0.1ML INTRACAMERAL INJ As Ordered ONE; -CYCLOPENTOLATE 1% OPHTH SOLN 2ML BTL OD SCH; +CYCLOPENTOLATE 1% OPHTH SOLN 2ML BTL OS SCH; +GLIP5TAB17 PO; -GLIP5TAB8 PO; -LIDOCAINE 1% SDV 5ML VIAL As Ordered ONE; -PHENYLEPHRINE 2.5% OPHTH SOL 2ML OD SCH; +PHENYLEPHRINE 2.5% OPHTH SOL 2ML OS SCH; -PROPARACAINE 0.5% OPHTH SOL 15ML OD ONE; +PROPARACAINE 0.5% OPHTH SOL 15ML OS ONE; -TROPICAMIDE 1% OPHTH SOLN 15ML OD SCH; +TROPICAMIDE 1% OPHTH SOLN 15ML OS SCH
[2023-06-24] MEDS ORDERED: LIDOCAINE 1% SDV 5ML VIAL As Ordered ONE (06:33)
[2023-06-24] MEDS ORDERED: BSS IRR 500ML/OMIDRIA 4ML IRR BAG (OR ONLY) As Ordered ONE (06:35)
[2023-06-24] MEDS ORDERED: CEFUROXIME 1MG/0.1ML INTRACAMERAL INJ As Ordered ONE (06:35)
[2023-06-24] MEDS ORDERED: POLYTRIM OPTH DROPS 10ML As Ordered ONE (07:34)
[2023-06-24] MEDS ORDERED: POLYTRIM OPTH DROPS 10ML OS ONE (08:00)
[2023-06-24] MEDS ORDERED: ONDANSETRON 4MG 2ML VIAL As Ordered ONE (08:03)
[2023-06-24] MEDS ORDERED: MIDAZOLAM INJ 2MG/2ML VIAL As Ordered ONE (08:04)
[2023-06-24] MEDS ORDERED: LABETALOL 100MG/20ML VIAL As Ordered ONE (08:05)
[2023-06-24 08:15] VITALS: BP 165/71; TEMP 97; O2SAT 98
== END 2023-06-24 08:49 | disposition home or self-care (01) ==
LOC: M SDC 06:28
PROVIDERS: ATTEND Ophthalmology
DX: H25.12 Age-related nuclear cataract, left eye (principal); I10 Essential (primary) hypertension; E78.5 Hyperlipidemia, unspecified; E11.9 Type 2 diabetes mellitus without complications; K50.90 Crohn's disease, unspecified, without complications; D64.9 Anemia, unspecified; M81.0 Age-related osteoporosis without current pathological fracture; Z87.891 Personal history of nicotine dependence; F41.9 Anxiety disorder, unspecified; J44.9 Chronic obstructive pulmonary disease, unspecified; Z79.84 Long term (current) use of oral hypoglycemic drugs; Z85.810 Personal history of malignant neoplasm of tongue; Z79.899 Other long term (current) drug therapy; Z88.1 Allergy status to other antibiotic agents; Z88.8 Allergy status to other drugs, medicaments and biological substances; Z91.018 Allergy to other foods
CPT/HCPCS: 66984; J0697; J1097; J1920; J2250; J2405; V2632

== ENCOUNTER 2023-07-09 04:34 | Observation (INO) | payer MEDICARE ==
[~2023-07-09] VITALS: Ht 144.8 cm; Wt 70.9 kg
[~2023-07-09 04:34] MED LIST changes: -CYCLOPENTOLATE 1% OPHTH SOLN 2ML BTL OS SCH; -PHENYLEPHRINE 2.5% OPHTH SOL 2ML OS SCH; -PROPARACAINE 0.5% OPHTH SOL 15ML OS ONE; -TROPICAMIDE 1% OPHTH SOLN 15ML OS SCH
[2023-07-09] MEDS ORDERED: ONDANSETRON 4MG 2ML VIAL IV ONE ×2 (05:05→14:20)
[2023-07-09 05:33] LABS: RSV AMPLIFICATION NEGATIVE (NEGATIVE)
[2023-07-09] MEDS ORDERED: NS 1,000 ML IV ONE (06:20)
[2023-07-09] MEDS ORDERED: PROMETHAZINE 25MG/ML 1ML VIAL IV ONE (06:20)
[2023-07-09] MEDS: MORPHINE 2 MG/ML 1ML VIAL IV PRN ×3 (06:34→20:16)
[2023-07-09 07:03] LABS: BASO % 0.2 % (0.0-1.0); EOS % 0.3 % (0.0-3.0); HEMATOCRIT 39.6 % (36.0-47.0); HEMOGLOBIN 13.7 g/dl (12.0-15.5); LYMPH # 1.3 10^3/uL (1.5-5.0); LYMPH % 14.7 % (24.0-44.0); MEAN CORPUSCULAR HEMOGLOBIN 31.2 pg (27.0-33.0); MEAN CORPUSCULAR HGB CONC 34.6 g/dl (32.0-36.5); MEAN CORPUSCULAR VOLUME 90.2 fl (80.0-96.0); MONO # 0.8 10^3/uL (0.0-0.8); MONO % 8.4 % (2.0-8.0); NEUTROPHILS # 6.9 10^3/uL (1.5-8.5); NEUTROPHILS % 76.1 % (36.0-66.0); PLATELET COUNT, AUTOMATED 147 10^3/uL (150-450); RED BLOOD COUNT 4.39 10^6/uL (4.00-5.40)
[2023-07-09 07:27] LABS: LIPASE 130 U/L (12-53)
[2023-07-09 07:29] LABS: ALBUMIN 3.8 G/DL (3.2-5.2); ALKALINE PHOSPHATASE 116 U/L (46-116); ALT/SGPT 41 U/L (7.0-40); AST/SGOT 40 U/L (<34); BILIRUBIN,DIRECT 1.4 MG/DL (<0.4); BILIRUBIN,TOTAL 3.3 MG/DL (0.3-1.2); CK-MB VALUE MASS < 1.0 NG/ML (<3.6); TOTAL PROTEIN 7.6 G/DL (5.7-8.2)
[2023-07-09 07:31] LABS: CPK CREATINE PHOSPHOKINASE 21 U/L (34-145); MB/CK RELATIVE INDEX 4.76 (< OR =4)
[2023-07-09] MEDS ORDERED: ISOVUE-370 76% 100ML VIAL As Ordered ONE (07:50)
[2023-07-09 09:00] LABS: CK-MB VALUE MASS < 1.0 NG/ML (<3.6)
[2023-07-09 09:03] LABS: CPK CREATINE PHOSPHOKINASE 19 U/L (34-145); MB/CK RELATIVE INDEX 5.26 (< OR =4)
[2023-07-09] MEDS ORDERED: methylPREDNISolone 125MG 2ML VIAL IV ONE (13:30)
[2023-07-09] MEDS ORDERED: MORPHINE 4 MG/ML 1ML VIAL IV ONE (14:20)
[2023-07-09] MEDS ORDERED: MED REC IN PROGRESS XX SCH (17:10)
[2023-07-09] MEDS ORDERED: GLUCOSE 4GM CHEW TABLET PO PRN (18:00)
[2023-07-09] MEDS ORDERED: GLUCAGON INJ 1MG VIAL SC PRN (18:00)
[2023-07-09] MEDS ORDERED: DEXTROSE 50% 50ML SYRINGE IV PRN (18:00)
[2023-07-09] MEDS ORDERED: ONDA4TAB6 PO (18:18)
[2023-07-09] MEDS ORDERED: HOME MED LIST COMPLETE! XX SCH ×2 (18:20→18:30)
[2023-07-09] MEDS ORDERED: PROM25TA12 PO (18:20)
[2023-07-09 18:36] LABS: ERYTHROCYTE SEDIMENTATION RATE 45 mm/hr (0-30)
[2023-07-09] MEDS: NS 1,000 ML IV SCH (18:45)
[2023-07-09 19:13] LABS: HEMOGLOBIN A1c 6.4 % (4.0-6.0)
[2023-07-09 20:05] VITALS: BP 143/77; TEMP 97; O2SAT 97
[2023-07-09] MEDS: ONDANSETRON 4MG 2ML VIAL IV PRN (20:16)
[2023-07-09] MEDS: METOPROLOL TART 25 MG TABLET PO SCH (20:16)
[2023-07-09] MEDS: PANTOPRAZOLE 40MG VIAL IV SCH (20:16)
[2023-07-09] MEDS: INSULIN LISPRO (NovoLOG) PER UNIT SC SCH (20:23)
[2023-07-09] MEDS ORDERED: METOPROLOL TART 25 MG TABLET PO ONE (21:00)
[2023-07-10] MEDS: MORPHINE 2 MG/ML 1ML VIAL IV PRN ×4 (00:53→16:32)
[2023-07-10] MEDS: ONDANSETRON 4MG 2ML VIAL IV PRN ×4 (00:54→16:31)
[2023-07-10] MEDS: NS 1,000 ML IV SCH ×2 (03:57→14:43)
[2023-07-10 05:04] VITALS: BP 144/72; TEMP 98.6; O2SAT 95
[2023-07-10 05:37] LABS: MEAN CORPUSCULAR HEMOGLOBIN 31.5 pg (27.0-33.0); MEAN CORPUSCULAR HGB CONC 34.3 g/dl (32.0-36.5); MEAN CORPUSCULAR VOLUME 91.9 fl (80.0-96.0); PLATELET COUNT, AUTOMATED 141 10^3/uL (150-450); RED BLOOD COUNT 3.81 10^6/uL (4.00-5.40); WHITE BLOOD COUNT 5.3 10^3/uL (4.0-10.0)
[2023-07-10 05:58] LABS: LIPASE 86 U/L (12-53)
[2023-07-10 06:01] LABS: ALBUMIN 3.2 G/DL (3.2-5.2); ALKALINE PHOSPHATASE 103 U/L (46-116); ALT/SGPT 29 U/L (7.0-40); AST/SGOT 23 U/L (<34); BILIRUBIN,TOTAL 1.6 MG/DL (0.3-1.2); BLOOD UREA NITROGEN 24 MG/DL (9-23); CALCIUM LEVEL 8.5 MG/DL (8.3-10.6); CARBON DIOXIDE LEVEL 22 MMOL/L (20-31); CHLORIDE LEVEL 103 MMOL/L (98-107); CREATININE FOR GFR 0.56 MG/DL (0.55-1.30); GLOMERULAR FILTRATION RATE > 60.0 (>45); GLUCOSE, FASTING 194 MG/DL (74-106); POTASSIUM SERUM 3.9 MMOL/L (3.5-5.1); SODIUM LEVEL 137 MMOL/L (136-145); TOTAL PROTEIN 6.7 G/DL (5.7-8.2)
[2023-07-10] MEDS: INSULIN LISPRO (NovoLOG) PER UNIT SC SCH ×4 (07:30→20:19)
[2023-07-10] MEDS: ENOXAPARIN 40MG/0.4ML SYRINGE (J1650 PER 10MG) SC SCH (09:36)
[2023-07-10] MEDS: PANTOPRAZOLE 40MG VIAL IV SCH ×2 (09:36→20:32)
[2023-07-10] MEDS: DAPAGLIFLOZIN PROPANEDIOL 10MG TABLET (FARXIGA) PO SCH (09:37)
[2023-07-10] MEDS: GABAPENTIN 400MG CAP PO SCH ×3 (09:37→20:32)
[2023-07-10] MEDS: METOPROLOL TART 25 MG TABLET PO SCH ×2 (09:40→20:28)
[2023-07-10] MEDS: ENALAPRIL MALEATE 10 MG TAB PO SCH (09:40)
[2023-07-10] MEDS: methylPREDNISolone 125MG 2ML VIAL IV SCH (09:48)
[2023-07-10 19:48] VITALS: BP 149/71; TEMP 98.2; O2SAT 96
[2023-07-10] MEDS ORDERED: ATORVASTATIN 10 MG TAB PO SCH (21:00)
[2023-07-11] MEDS: NS 1,000 ML IV SCH (03:58)
[2023-07-11] MEDS: MORPHINE 2 MG/ML 1ML VIAL IV PRN ×2 (04:09→10:15)
[2023-07-11] MEDS: ONDANSETRON 4MG 2ML VIAL IV PRN ×2 (04:09→10:15)
[2023-07-11 05:33] VITALS: BP 138/67; TEMP 98; O2SAT 97
[2023-07-11 05:35] LABS: BASO % 0.3 % (0.0-1.0); EOS % 0.1 % (0.0-3.0); HEMATOCRIT 38.6 % (36.0-47.0); HEMOGLOBIN 12.7 g/dl (12.0-15.5); LYMPH # 1.8 10^3/uL (1.5-5.0); LYMPH % 26.3 % (24.0-44.0); MEAN CORPUSCULAR HEMOGLOBIN 30.6 pg (27.0-33.0); MEAN CORPUSCULAR HGB CONC 32.9 g/dl (32.0-36.5); MONO # 0.5 10^3/uL (0.0-0.8); MONO % 6.7 % (2.0-8.0); NEUTROPHILS # 4.5 10^3/uL (1.5-8.5); NEUTROPHILS % 66.3 % (36.0-66.0); PLATELET COUNT, AUTOMATED 129 10^3/uL (150-450); RED BLOOD COUNT 4.15 10^6/uL (4.00-5.40); WHITE BLOOD COUNT 6.8 10^3/uL (4.0-10.0)
[2023-07-11 06:13] LABS: ALBUMIN 3.1 G/DL (3.2-5.2); ALKALINE PHOSPHATASE 95 U/L (46-116); ALT/SGPT 25 U/L (7.0-40); AST/SGOT 27 U/L (<34); BILIRUBIN,TOTAL 1.1 MG/DL (0.3-1.2); BLOOD UREA NITROGEN 21 MG/DL (9-23); CALCIUM LEVEL 8.3 MG/DL (8.3-10.6); CARBON DIOXIDE LEVEL 19 MMOL/L (20-31); CHLORIDE LEVEL 109 MMOL/L (98-107); CREATININE FOR GFR 0.55 MG/DL (0.55-1.30); GLOMERULAR FILTRATION RATE > 60.0 (>45); GLUCOSE, FASTING 127 MG/DL (74-106); MAGNESIUM LEVEL 1.7 MG/DL (1.8-2.4); POTASSIUM SERUM 4.1 MMOL/L (3.5-5.1); SODIUM LEVEL 139 MMOL/L (136-145); TOTAL PROTEIN 6.4 G/DL (5.7-8.2)
[2023-07-11] MEDS: MAG SULF 1GM/100ML (MAG RUN) 1 GM in IV 1 EA IV SCH ×2 (07:37→08:55)
[2023-07-11] MEDS: INSULIN LISPRO (NovoLOG) PER UNIT SC SCH (07:37)
[2023-07-11] MEDS: ENOXAPARIN 40MG/0.4ML SYRINGE (J1650 PER 10MG) SC SCH (08:10)
[2023-07-11] MEDS: DAPAGLIFLOZIN PROPANEDIOL 10MG TABLET (FARXIGA) PO SCH (08:10)
[2023-07-11] MEDS: methylPREDNISolone 125MG 2ML VIAL IV SCH (08:10)
[2023-07-11] MEDS: PANTOPRAZOLE 40MG VIAL IV SCH (08:10)
[2023-07-11 08:11] VITALS: BP 138/67
[2023-07-11] MEDS: ENALAPRIL MALEATE 10 MG TAB PO SCH (08:11)
[2023-07-11] MEDS: METOPROLOL TART 25 MG TABLET PO SCH (08:11)
[2023-07-11] MEDS: GABAPENTIN 400MG CAP PO SCH (08:11)
[2023-07-11] MEDS ORDERED: PRED10TA2 PO ×2 (08:56→09:23)
[2023-07-11] MEDS ORDERED: MIRA3350 PO (08:56)
[2023-07-11] MEDS ORDERED: OXYC1TAB23 PO (09:44)
[2023-07-11] MEDS ORDERED: ONDA-83 PO (09:44)
== END 2023-07-11 11:19 | disposition home or self-care (01) ==
LOC: M ED 04:34 → M ED INP 17:47 → ENRESERV 19:40 → M MSPAV 20:04
PROVIDERS: ADMIT Internal Medicine; ATTEND Internal Medicine
DX: R10.9 Unspecified abdominal pain (principal); R11.2 Nausea with vomiting, unspecified; K29.70 Gastritis, unspecified, without bleeding; K80.20 Calculus of gallbladder without cholecystitis without obstruction; K50.90 Crohn's disease, unspecified, without complications; E87.1 Hypo-osmolality and hyponatremia; K76.0 Fatty (change of) liver, not elsewhere classified; R74.01 Elevation of levels of liver transaminase levels; N20.0 Calculus of kidney; J98.11 Atelectasis; I10 Essential (primary) hypertension; E11.9 Type 2 diabetes mellitus without complications; E78.5 Hyperlipidemia, unspecified; K21.9 Gastro-esophageal reflux disease without esophagitis; G62.9 Polyneuropathy, unspecified; Z85.21 Personal history of malignant neoplasm of larynx; Z79.620 Long term (current) use of immunosuppressive biologic; Z79.84 Long term (current) use of oral hypoglycemic drugs; Z79.52 Long term (current) use of systemic steroids; Z91.018 Allergy to other foods; Z88.1 Allergy status to other antibiotic agents; Z79.899 Other long term (current) drug therapy; Z88.8 Allergy status to other drugs, medicaments and biological substances
CPT/HCPCS: 36415; 71045; 71275; 74177; 76705; 80047; 80053; 80076; 81001; 82550; 82553; 83036; 83605; 83690; 83735; 84484; 85025; 85027; 85652; 86140; 87040; 87631; 93005; 93041; 94760; 96361; 96372; 96374; 96375; 96376; 99285; C9113; G0378; J1650; J1815; J2405; J2550; J2930; J3475; Q9967

== ENCOUNTER → 2023-07-23 | Outpatient (CLI) | payer MEDICARE ==
[~2023-07-23] MED LIST changes: +CEFD1CAP9 PO; -CEFD300C42 PO; +MIRA3350 PO
[2023-07-23 14:37] LABS: BASO % 0.8 % (0.0-1.0); EOS # 0.1 10^3/uL (0.0-0.5); EOS % 1.5 % (0.0-3.0); HEMATOCRIT 36.2 % (36.0-47.0); HEMOGLOBIN 12.2 g/dl (12.0-15.5); LYMPH # 1.6 10^3/uL (1.5-5.0); LYMPH % 30.8 % (24.0-44.0); MEAN CORPUSCULAR HEMOGLOBIN 31.2 pg (27.0-33.0); MEAN CORPUSCULAR HGB CONC 33.7 g/dl (32.0-36.5); MEAN CORPUSCULAR VOLUME 92.6 fl (80.0-96.0); MONO # 0.5 10^3/uL (0.0-0.8); MONO % 10.2 % (2.0-8.0); NEUTROPHILS % 56.5 % (36.0-66.0); PLATELET COUNT, AUTOMATED 170 10^3/uL (150-450); RED BLOOD COUNT 3.91 10^6/uL (4.00-5.40); WHITE BLOOD COUNT 5.3 10^3/uL (4.0-10.0)
[2023-07-23 14:48] LABS: ERYTHROCYTE SEDIMENTATION RATE 11 mm/hr (0-30)
[2023-07-23 15:06] LABS: C REACTIVE PROTEIN QUANTITATIV < 0.40 MG/DL (<1.0)
[2023-07-23 15:08] LABS: ALBUMIN 3.4 G/DL (3.2-5.2); ALKALINE PHOSPHATASE 150 U/L (46-116); ALT/SGPT 24 U/L (7.0-40); AST/SGOT 24 U/L (<34); BILIRUBIN,TOTAL 0.8 MG/DL (0.3-1.2); BLOOD UREA NITROGEN 12 MG/DL (9-23); CALCIUM LEVEL 9.3 MG/DL (8.3-10.6); CARBON DIOXIDE LEVEL 28 MMOL/L (20-31); CHLORIDE LEVEL 103 MMOL/L (98-107); CREATININE FOR GFR 0.63 MG/DL (0.55-1.30); GLOMERULAR FILTRATION RATE > 60.0 (>45); GLUCOSE, FASTING 98 MG/DL (74-106); SODIUM LEVEL 139 MMOL/L (136-145); TOTAL PROTEIN 6.5 G/DL (5.7-8.2)
[2023-07-23 15:10] LABS: VITAMIN B12 LEVEL 704 PG/ML (211-911)
== END ==
LOC: M LAB 13:44
PROVIDERS: ATTEND Internal Medicine Gastroenterology
DX: K50.00 Crohn's disease of small intestine without complications (principal)

== ENCOUNTER → 2023-07-23 | Outpatient (CLI) | payer MEDICARE ==
[2023-07-23 14:36] LABS: BASO % 0.7 % (0.0-1.0); EOS # 0.1 10^3/uL (0.0-0.5); EOS % 1.5 % (0.0-3.0); HEMATOCRIT 36.3 % (36.0-47.0); HEMOGLOBIN 12.2 g/dl (12.0-15.5); LYMPH # 1.7 10^3/uL (1.5-5.0); LYMPH % 30.8 % (24.0-44.0); MEAN CORPUSCULAR HEMOGLOBIN 31.7 pg (27.0-33.0); MEAN CORPUSCULAR HGB CONC 33.6 g/dl (32.0-36.5); MEAN CORPUSCULAR VOLUME 94.3 fl (80.0-96.0); MONO # 0.6 10^3/uL (0.0-0.8); MONO % 10.3 % (2.0-8.0); NEUTROPHILS % 56.1 % (36.0-66.0); PLATELET COUNT, AUTOMATED 173 10^3/uL (150-450); RED BLOOD COUNT 3.85 10^6/uL (4.00-5.40); WHITE BLOOD COUNT 5.4 10^3/uL (4.0-10.0)
[2023-07-23 15:03] LABS: CREATININE, URINE 38.9 MG/DL; MAU/CREAT RATIO 77.1 MCG/MG (0.0-30.0)
[2023-07-23 15:05] LABS: ALBUMIN 3.5 G/DL (3.2-5.2); ALKALINE PHOSPHATASE 151 U/L (46-116); ALT/SGPT 24 U/L (7.0-40); AST/SGOT 24 U/L (<34); BILIRUBIN,TOTAL 0.8 MG/DL (0.3-1.2); BLOOD UREA NITROGEN 12 MG/DL (9-23); CALCIUM LEVEL 9.4 MG/DL (8.3-10.6); CARBON DIOXIDE LEVEL 28 MMOL/L (20-31); CHLORIDE LEVEL 103 MMOL/L (98-107); CHOLESTEROL LEVEL 176 MG/DL (<200); CHOLESTEROL RISK RATIO 4.24 (<5); CREATININE FOR GFR 0.63 MG/DL (0.55-1.30); GLOMERULAR FILTRATION RATE > 60.0 (>45); GLUCOSE, FASTING 96 MG/DL (74-106); HDL CHOLESTEROL 41.5 MG/DL (>40); IRON (FE) 80 UG/DL (50-170); LDL CHOLESTEROL 78.9 MG/DL (<100); MAGNESIUM LEVEL 1.3 MG/DL (1.8-2.4); NON-HDL-C 134.5 MG/DL; PERCENT SATURATION 26.9 % (13.2-45.0); SODIUM LEVEL 138 MMOL/L (136-145); TOTAL IRON BINDING CAPACITY 297 UG/DL (250-425); TOTAL PROTEIN 6.5 G/DL (5.7-8.2); TRIGLYCERIDES LEVEL 278 MG/DL (<150)
[2023-07-23 15:07] LABS: FERRITIN 60.6 NG/ML (7.3-270.7)
[2023-07-23 15:49] LABS: HEMOGLOBIN A1c 6.6 % (4.0-6.0)
== END ==
LOC: M LAB 13:42
PROVIDERS: ATTEND Nurse Practitioner Family
DX: E11.69 Type 2 diabetes mellitus with other specified complication (principal); E78.5 Hyperlipidemia, unspecified; I10 Essential (primary) hypertension; D50.9 Iron deficiency anemia, unspecified; E83.42 Hypomagnesemia; K50.00 Crohn's disease of small intestine without complications

== ENCOUNTER → 2023-07-28 | Outpatient (REF) | payer MEDICARE | LOC: M LAB REF 12:08 | PROVIDERS: ATTEND Internal Medicine Gastroenterology | DX: K50.00 Crohn's disease of small intestine without complications (principal) ==

== ENCOUNTER 2023-07-29 23:28 | Observation (INO) | payer MEDICARE ==
[~2023-07-29] VITALS: Ht 144.8 cm; Wt 75.9 kg
[2023-07-30] VITALS (8 sets, daily range): BP systolic 115–178; BP diastolic 58–95; TEMP 96.6–98.1; O2SAT 93–97
[2023-07-30] MEDS ORDERED: ONDANSETRON 4MG ORAL DISINTEGRATING TAB PO ONE (00:45)
[2023-07-30 01:41] LABS: BASO % 0.5 % (0.0-1.0); EOS % 0.6 % (0.0-3.0); HEMATOCRIT 37.5 % (36.0-47.0); HEMOGLOBIN 12.9 g/dl (12.0-15.5); LYMPH # 1.1 10^3/uL (1.5-5.0); LYMPH % 17.5 % (24.0-44.0); MEAN CORPUSCULAR HEMOGLOBIN 31.7 pg (27.0-33.0); MEAN CORPUSCULAR HGB CONC 34.4 g/dl (32.0-36.5); MEAN CORPUSCULAR VOLUME 92.1 fl (80.0-96.0); MONO # 0.4 10^3/uL (0.0-0.8); MONO % 6.6 % (2.0-8.0); NEUTROPHILS # 4.8 10^3/uL (1.5-8.5); NEUTROPHILS % 74.2 % (36.0-66.0); PLATELET COUNT, AUTOMATED 166 10^3/uL (150-450); RED BLOOD COUNT 4.07 10^6/uL (4.00-5.40); WHITE BLOOD COUNT 6.5 10^3/uL (4.0-10.0)
[2023-07-30] MEDS ORDERED: PROMETHAZINE 25MG/ML 1ML VIAL IM ONE (01:50)
[2023-07-30] MEDS ORDERED: MORPHINE 4 MG/ML 1ML VIAL IM ONE (01:50)
[2023-07-30 02:00] LABS: LIPASE 46 U/L (12-53)
[2023-07-30 02:02] LABS: ALBUMIN 3.5 G/DL (3.2-5.2); ALKALINE PHOSPHATASE 127 U/L (46-116); ALT/SGPT 24 U/L (7.0-40); AST/SGOT 34 U/L (<34); BILIRUBIN,DIRECT 0.6 MG/DL (<0.4); BILIRUBIN,TOTAL 1.5 MG/DL (0.3-1.2); TOTAL PROTEIN 6.6 G/DL (5.7-8.2)
[2023-07-30] MEDS ORDERED: PROMETHAZINE 25MG/ML 1ML VIAL IV ONE (02:20)
[2023-07-30 04:15] LABS: BLOOD UREA NITROGEN 13 MG/DL (9-23); CALCIUM LEVEL 9.5 MG/DL (8.3-10.6); CARBON DIOXIDE LEVEL 21 MMOL/L (20-31); CHLORIDE LEVEL 103 MMOL/L (98-107); CREATININE FOR GFR 0.62 MG/DL (0.55-1.30); GLOMERULAR FILTRATION RATE > 60.0 (>45); GLUCOSE, FASTING 201 MG/DL (74-106); POTASSIUM SERUM 3.9 MMOL/L (3.5-5.1); SODIUM LEVEL 137 MMOL/L (136-145)
[2023-07-30] MEDS ORDERED: PIPERACILLIN/TAZOBACTAM SOD 4.5 GM in D5W MINI-BAG PLUS 50 ML IV ONE (04:30)
[2023-07-30] MEDS ORDERED: GLUCAGON INJ 1MG VIAL SC PRN ×2 (05:35→17:50)
[2023-07-30] MEDS ORDERED: DEXTROSE 50% 50ML SYRINGE IV PRN ×2 (05:35→17:50)
[2023-07-30] MEDS ORDERED: GLUCOSE 4GM CHEW TABLET PO PRN ×2 (05:35→17:50)
[2023-07-30] MEDS ORDERED: HOME MED LIST COMPLETE! XX SCH (05:50)
[2023-07-30] MEDS ORDERED: PROMETHAZINE 25 MG TAB PO PRN (05:50)
[2023-07-30] MEDS ORDERED: ONDA-195 PO (05:50)
[2023-07-30] MEDS ORDERED: MOM 30ML SUSPENSION UDC PO PRN (06:00)
[2023-07-30] MEDS: INSULIN LISPRO (NovoLOG) PER UNIT SC SCH ×3 (06:00→18:00)
[2023-07-30] MEDS ORDERED: HEPARIN SOD (PORCINE) 5000UNITS/ML 1ML VIAL/SYRINGE SC SCH (06:00)
[2023-07-30 06:09] LABS: RSV AMPLIFICATION NEGATIVE (NEGATIVE)
[2023-07-30] MEDS: MORPHINE 2 MG/ML 1ML VIAL IV PRN ×2 (07:16→13:12)
[2023-07-30] MEDS: NS 1,000 ML IV SCH (07:16)
[2023-07-30] MEDS ORDERED: ENALAPRIL MALEATE 10 MG TAB PO SCH (09:00)
[2023-07-30] MEDS: GABAPENTIN 400MG CAP PO SCH ×3 (09:34→21:12)
[2023-07-30] MEDS: PANTOPRAZOLE 40MG TAB (PROTONIX) PO SCH (09:35)
[2023-07-30] MEDS: ONDANSETRON 4MG TAB PO PRN (09:35)
[2023-07-30] MEDS: METOPROLOL TART 25 MG TABLET PO SCH ×2 (09:35→21:12)
[2023-07-30] MEDS: PIPERACILLIN/TAZOBACTAM SOD 4.5 GM in D5W MINI-BAG PLUS 50 ML IV SCH ×2 (10:19→18:49)
[2023-07-30 11:18] LABS: INR 1.06; PROTHROMBIN TIME 13.5 SECONDS (12.5-14.5)
[2023-07-30] MEDS ORDERED: MIDAZOLAM INJ 2MG/2ML VIAL As Ordered ONE (14:46)
[2023-07-30] MEDS ORDERED: fentaNYL 100 MCG/2 ML INJECTION As Ordered ONE (14:46)
[2023-07-30] MEDS ORDERED: propofoL 200 MG/20 ML VIAL As Ordered ONE (14:47)
[2023-07-30] MEDS ORDERED: ROCURONIUM BROMIDE 50MG/5ML VIAL As Ordered ONE (14:50)
[2023-07-30] MEDS ORDERED: LIDOCAINE 2% 100MG/5ML SDV (FOR ANES.) As Ordered ONE (14:51)
[2023-07-30] MEDS ORDERED: ONDANSETRON 4MG 2ML VIAL As Ordered ONE ×2 (14:51→17:07)
[2023-07-30] MEDS ORDERED: SUGAMMADEX SODIUM 500 MG/5 ML VIAL (BRIDION) As Ordered ONE ×2 (14:51→17:08)
[2023-07-30] MEDS ORDERED: KETOROLAC 60MG 2ML VIAL As Ordered ONE ×2 (14:52→17:07)
[2023-07-30] MEDS ORDERED: INDOCYANINE GREEN 25MG VIAL (IC-GREEN) As Ordered ONE (16:00)
[2023-07-30] MEDS ORDERED: fentaNYL 250 MCG/5 ML INJECTION As Ordered ONE (16:35)
[2023-07-30] MEDS ORDERED: METOCLOPRAMIDE INJ 10MG/2ML VIAL As Ordered ONE (17:07)
[2023-07-30] MEDS ORDERED: ACETAMINOPHEN 1000MG 100ML IV BAG As Ordered ONE (17:07)
[2023-07-30] MEDS ORDERED: LR 1,000 ML IV SCH (17:50)
[2023-07-30] MEDS ORDERED: oxyCODONE 5MG TAB PO PRN (17:50)
[2023-07-30] MEDS ORDERED: PROMETHAZINE 25MG/ML 1ML VIAL IV PRN (17:50)
[2023-07-30] MEDS ORDERED: INSULIN LISPRO (NovoLOG) PER UNIT SC PRN (17:50)
[2023-07-30] MEDS ORDERED: fentaNYL 100 MCG/2 ML INJECTION IV PRN (17:50)
[2023-07-30] MEDS ORDERED: ONDANSETRON 4MG 2ML VIAL IV PRN (17:50)
[2023-07-30] MEDS ORDERED: HYDROMORPHONE HCL 0.5 MG/ 0.5 ML SYRINGE IV PRN (17:50)
[2023-07-30] MEDS: ATORVASTATIN 10 MG TAB PO SCH (21:12)
[2023-07-30] MEDS ORDERED: KETOROLAC 30 MG/ML 1ML VIAL IV ONE (22:00)
[2023-07-31] MEDS: PIPERACILLIN/TAZOBACTAM SOD 4.5 GM in D5W MINI-BAG PLUS 50 ML IV SCH ×2 (00:05→05:39)
[2023-07-31] MEDS: NS 1,000 ML IV SCH (00:06)
[2023-07-31 02:00] VITALS: BP 136/69; TEMP 97.2; O2SAT 96
[2023-07-31] MEDS: MORPHINE 2 MG/ML 1ML VIAL IV PRN (05:38)
[2023-07-31] MEDS: ONDANSETRON 4MG TAB PO PRN (05:42)
[2023-07-31 06:00] VITALS: BP 136/70; TEMP 97.2; O2SAT 97
[2023-07-31] MEDS: INSULIN LISPRO (NovoLOG) PER UNIT SC SCH ×5 (06:00→17:30)
[2023-07-31 06:25] LABS: BASO % 0.4 % (0.0-1.0); EOS # 0.1 10^3/uL (0.0-0.5); EOS % 1.6 % (0.0-3.0); HEMATOCRIT 37.1 % (36.0-47.0); LYMPH # 0.8 10^3/uL (1.5-5.0); LYMPH % 16.8 % (24.0-44.0); MEAN CORPUSCULAR HEMOGLOBIN 31.2 pg (27.0-33.0); MEAN CORPUSCULAR HGB CONC 32.3 g/dl (32.0-36.5); MEAN CORPUSCULAR VOLUME 96.4 fl (80.0-96.0); MONO # 0.4 10^3/uL (0.0-0.8); MONO % 8.6 % (2.0-8.0); NEUTROPHILS # 3.6 10^3/uL (1.5-8.5); NEUTROPHILS % 72.2 % (36.0-66.0); PLATELET COUNT, AUTOMATED 122 10^3/uL (150-450); RED BLOOD COUNT 3.85 10^6/uL (4.00-5.40)
[2023-07-31 06:52] LABS: BLOOD UREA NITROGEN 14 MG/DL (9-23); CARBON DIOXIDE LEVEL 28 MMOL/L (20-31); CHLORIDE LEVEL 102 MMOL/L (98-107); GLOMERULAR FILTRATION RATE > 60.0 (>45); GLUCOSE, FASTING 131 MG/DL (74-106); POTASSIUM SERUM 3.9 MMOL/L (3.5-5.1); SODIUM LEVEL 138 MMOL/L (136-145)
[2023-07-31] MEDS ORDERED: DEXTROSE 50% 50ML SYRINGE IV PRN (07:05)
[2023-07-31] MEDS ORDERED: GLUCAGON INJ 1MG VIAL SC PRN (07:05)
[2023-07-31] MEDS ORDERED: GLUCOSE 4GM CHEW TABLET PO PRN (07:05)
[2023-07-31] MEDS: GABAPENTIN 400MG CAP PO SCH ×3 (07:50→21:27)
[2023-07-31] MEDS: PANTOPRAZOLE 40MG TAB (PROTONIX) PO SCH (07:50)
[2023-07-31] MEDS: METOPROLOL TART 25 MG TABLET PO SCH ×2 (07:51→21:27)
[2023-07-31] MEDS ORDERED: PERCOCET 5MG/325MG TAB PO PRN (08:55)
[2023-07-31] MEDS ORDERED: MORPHINE 2 MG/ML 1ML VIAL IV PRN (10:00)
[2023-07-31 12:55] VITALS: BP 148/60; TEMP 103.5; O2SAT 93
[2023-07-31] MEDS ORDERED: ACETAMINOPHEN TAB 650MG DOSE (2X325MG) PO ONE (13:00)
[2023-07-31] MEDS ORDERED: KETOROLAC 30 MG/ML 1ML VIAL IV ONE (13:35)
[2023-07-31] MEDS: PIPERACILLIN/TAZOBACTAM SOD 3.375 GM in D5W MINI-BAG PLUS 50 ML IV SCH ×2 (13:49→21:26)
[2023-07-31] MEDS: HEPARIN SOD (PORCINE) 5000UNITS/ML 1ML VIAL/SYRINGE SQ SCH ×2 (13:50→21:27)
[2023-07-31 14:00] VITALS: BP 148/76; TEMP 100.8; O2SAT 89
[2023-07-31 16:00] VITALS: BP 119/58; TEMP 99.3; O2SAT 90
[2023-07-31] MEDS: MIRALAX *UNIT DOSE* 17GM PACKET PO SCH (16:24)
[2023-07-31] MEDS ORDERED: ACETAMINOPHEN TAB 650MG DOSE (2X325MG) PO PRN (17:00)
[2023-07-31] MEDS ORDERED: INSULIN LISPRO (NovoLOG) PER UNIT SC SCH (21:00)
[2023-07-31] MEDS: DOCUSATE SODIUM 100MG CAPSULE PO SCH (21:27)
[2023-07-31] MEDS: ATORVASTATIN 10 MG TAB PO SCH (21:27)
[2023-07-31 22:00] VITALS: BP 149/71; TEMP 97.9; O2SAT 94
[2023-07-31] MEDS: KETOROLAC 30 MG/ML 1ML VIAL IV PRN (23:47)
[2023-08-01 02:00] VITALS: BP 113/63; TEMP 97.3; O2SAT 93
[2023-08-01] MEDS: PIPERACILLIN/TAZOBACTAM SOD 3.375 GM in D5W MINI-BAG PLUS 50 ML IV SCH ×3 (02:46→14:00)
[2023-08-01 06:00] VITALS: TEMP 97.2; O2SAT 94
[2023-08-01] MEDS: HEPARIN SOD (PORCINE) 5000UNITS/ML 1ML VIAL/SYRINGE SQ SCH ×2 (06:06→14:00)
[2023-08-01 06:23] LABS: BLOOD UREA NITROGEN 12 MG/DL (9-23); CALCIUM LEVEL 8.1 MG/DL (8.3-10.6); CARBON DIOXIDE LEVEL 24 MMOL/L (20-31); CHLORIDE LEVEL 105 MMOL/L (98-107); CREATININE FOR GFR 0.73 MG/DL (0.55-1.30); GLOMERULAR FILTRATION RATE > 60.0 (>45); GLUCOSE, FASTING 134 MG/DL (74-106); POTASSIUM SERUM 3.9 MMOL/L (3.5-5.1); SODIUM LEVEL 138 MMOL/L (136-145)
[2023-08-01 07:57] LABS: BASO % 0.4 % (0.0-1.0); EOS # 0.1 10^3/uL (0.0-0.5); EOS % 2.5 % (0.0-3.0); HEMOGLOBIN 10.7 g/dl (12.0-15.5); LYMPH % 18.7 % (24.0-44.0); MEAN CORPUSCULAR HEMOGLOBIN 31.5 pg (27.0-33.0); MEAN CORPUSCULAR HGB CONC 33.4 g/dl (32.0-36.5); MEAN CORPUSCULAR VOLUME 94.1 fl (80.0-96.0); MONO # 0.6 10^3/uL (0.0-0.8); NEUTROPHILS # 3.7 10^3/uL (1.5-8.5); NEUTROPHILS % 67.2 % (36.0-66.0); PLATELET COUNT, AUTOMATED 119 10^3/uL (150-450); WHITE BLOOD COUNT 5.6 10^3/uL (4.0-10.0)
[2023-08-01] MEDS: KETOROLAC 30 MG/ML 1ML VIAL IV PRN (08:41)
[2023-08-01] MEDS: GABAPENTIN 400MG CAP PO SCH ×2 (08:44→15:05)
[2023-08-01] MEDS: PANTOPRAZOLE 40MG TAB (PROTONIX) PO SCH (08:44)
[2023-08-01] MEDS: METOPROLOL TART 25 MG TABLET PO SCH ×2 (08:45→08:50)
[2023-08-01] MEDS: DOCUSATE SODIUM 100MG CAPSULE PO SCH (08:47)
[2023-08-01] MEDS: MIRALAX *UNIT DOSE* 17GM PACKET PO SCH (08:47)
[2023-08-01] MEDS: INSULIN LISPRO (NovoLOG) PER UNIT SC SCH ×2 (08:48→12:00)
[2023-08-01 08:50] VITALS: BP 121/59
[2023-08-01] MEDS ORDERED: OXYC1TAB23 PO (11:03)
== END 2023-08-01 17:00 | disposition home or self-care (01) ==
LOC: M ED 23:28 → INTOOBSV 07-30 05:20 → M ED INP 07-30 05:20 → M MS5PR 07-30 08:10
PROVIDERS: ADMIT Family Medicine; ATTEND Family Medicine
DX: K81.0 Acute cholecystitis (principal); J98.11 Atelectasis; K50.00 Crohn's disease of small intestine without complications; K74.60 Unspecified cirrhosis of liver; N20.0 Calculus of kidney; I10 Essential (primary) hypertension; E11.9 Type 2 diabetes mellitus without complications; E78.5 Hyperlipidemia, unspecified; K21.9 Gastro-esophageal reflux disease without esophagitis; Z79.84 Long term (current) use of oral hypoglycemic drugs; Z79.899 Other long term (current) drug therapy; Z85.118 Personal history of other malignant neoplasm of bronchus and lung; Z91.018 Allergy to other foods; Z88.1 Allergy status to other antibiotic agents; Z88.8 Allergy status to other drugs, medicaments and biological substances
CPT/HCPCS: 36415; 47562; 71045; 74018; 76705; 80047; 80048; 80076; 83605; 83690; 83993; 85025; 85610; 87631; 87635; 88304; 93005; 96361; 96365; 96366; 96372; 96375; 96376; 99285; G0378; J0131; J0665; J1100; J1815; J1885; J2250; J2405; J2543; J2550; J2765; J3010; Q9968; S2900

== ENCOUNTER → 2023-08-20 | Outpatient (CLI) | payer MEDICARE ==
[~2023-08-20] MED LIST changes: +ONDA-195 PO
== END ==
LOC: M WHC 09:01
PROVIDERS: ATTEND Nurse Practitioner Family
DX: Z12.31 Encounter for screening mammogram for malignant neoplasm of breast (principal); Z13.820 Encounter for screening for osteoporosis; M85.89 Other specified disorders of bone density and structure, multiple sites

== ENCOUNTER → 2023-09-10 | Outpatient (CLI) | payer MEDICARE | LOC: M LAB 10:35 | PROVIDERS: ATTEND Internal Medicine Gastroenterology | DX: K50.00 Crohn's disease of small intestine without complications (principal); K76.0 Fatty (change of) liver, not elsewhere classified; Z11.59 Encounter for screening for other viral diseases; Z72.89 Other problems related to lifestyle ==

== ENCOUNTER 2023-09-18 15:39 | Inpatient (IN) | payer MEDICARE ==
[~2023-09-18] VITALS: Ht 144.8 cm; Wt 79.6 kg
[2023-09-18] MEDS: NS 1,000 ML IV ONE ×2 (16:20→17:55)
[2023-09-18] MEDS: ONDANSETRON 4MG 2ML VIAL IV ONE ×2 (16:20→19:43)
[2023-09-18] MEDS: MORPHINE 4 MG/ML 1ML VIAL IV ONE ×3 (16:21→19:46)
[2023-09-18 16:42] LABS: BASO % 0.5 % (0.0-1.0); EOS # 0.1 10^3/uL (0.0-0.5); EOS % 0.6 % (0.0-3.0); HEMATOCRIT 38.1 % (36.0-47.0); HEMOGLOBIN 13.7 g/dl (12.0-15.5); LYMPH # 1.4 10^3/uL (1.5-5.0); LYMPH % 16.4 % (24.0-44.0); MEAN CORPUSCULAR HEMOGLOBIN 33.3 pg (27.0-33.0); MEAN CORPUSCULAR VOLUME 92.7 fl (80.0-96.0); MONO # 0.6 10^3/uL (0.0-0.8); MONO % 6.8 % (2.0-8.0); NEUTROPHILS # 6.4 10^3/uL (1.5-8.5); NEUTROPHILS % 75.3 % (36.0-66.0); PLATELET COUNT, AUTOMATED 207 10^3/uL (150-450); RED BLOOD COUNT 4.11 10^6/uL (4.00-5.40); WHITE BLOOD COUNT 8.5 10^3/uL (4.0-10.0)
[2023-09-18 17:04] LABS: INR 1.01
[2023-09-18 17:07] LABS: AMYLASE 58 U/L (30-118)
[2023-09-18 17:21] LABS: ALBUMIN 4.2 G/DL (3.2-5.2); ALKALINE PHOSPHATASE 119 U/L (46-116); ALT/SGPT 28 U/L (7.0-40); AST/SGOT 51 U/L (<34); BILIRUBIN,DIRECT 0.4 MG/DL (<0.4); BILIRUBIN,TOTAL 1.3 MG/DL (0.3-1.2); BLOOD UREA NITROGEN 19 MG/DL (9-23); CALCIUM LEVEL 9.9 MG/DL (8.3-10.6); CARBON DIOXIDE LEVEL 23 MMOL/L (20-31); CHLORIDE LEVEL 98 MMOL/L (98-107); CK-MB VALUE MASS < 1.0 NG/ML (<3.6); CPK CREATINE PHOSPHOKINASE 46 U/L (34-145); CREATININE FOR GFR 0.68 MG/DL (0.55-1.30); GLOMERULAR FILTRATION RATE > 60.0 (>45); GLUCOSE, FASTING 150 MG/DL (74-106); LIPASE 51 U/L (12-53); MB/CK RELATIVE INDEX 2.17 (< OR =4); POTASSIUM SERUM 4.7 MMOL/L (3.5-5.1); SODIUM LEVEL 136 MMOL/L (136-145); TOTAL PROTEIN 7.3 G/DL (5.7-8.2)
[2023-09-18] MEDS ORDERED: ISOVUE-370 76% 100ML VIAL As Ordered ONE (17:43)
[2023-09-18] MEDS: NS 500 ML IV ONE (17:55)
[2023-09-18] MEDS ORDERED: MED REC IN PROGRESS XX SCH (19:35)
[2023-09-18] MEDS: methylPREDNISolone 40MG 1ML VIAL IV ONE (19:47)
[2023-09-18] MEDS ORDERED: ACET-897 PO (19:57)
[2023-09-18] MEDS ORDERED: HOME MED LIST COMPLETE! XX SCH (20:00)
[2023-09-18] MEDS ORDERED: GLUCOSE 4GM CHEW TABLET PO PRN (20:35)
[2023-09-18] MEDS ORDERED: DEXTROSE 50% 50ML SYRINGE IV PRN (20:35)
[2023-09-18] MEDS ORDERED: GLUCAGON INJ 1MG VIAL SC PRN (20:35)
[2023-09-18] MEDS ORDERED: **hydrALAZINE** 10 MG TAB PO PRN (20:35)
[2023-09-18] MEDS ORDERED: ACETAMINOPHEN TAB 650MG DOSE (2X325MG) PO PRN (20:35)
[2023-09-18] MEDS: NS 1,000 ML IV SCH (21:16)
[2023-09-18] MEDS: FERROUS SULFATE 325MG TAB PO SCH (21:17)
[2023-09-18] MEDS: METOPROLOL TART 25 MG TABLET PO SCH (21:17)
[2023-09-18] MEDS: ATORVASTATIN 10 MG TAB PO SCH (21:17)
[2023-09-18] MEDS: GABAPENTIN 400MG CAP PO SCH (21:17)
[2023-09-18 21:39] LABS: RSV AMPLIFICATION NEGATIVE (NEGATIVE)
[2023-09-18 23:57] VITALS: BP 147/71; TEMP 97.1
[2023-09-19] MEDS: INSULIN LISPRO (NovoLOG) PER UNIT SC SCH
[2023-09-19] MEDS: ONDANSETRON 4MG 2ML VIAL IV PRN (00:12)
[2023-09-19] MEDS: MORPHINE 2 MG/ML 1ML VIAL IV PRN (00:13)
[2023-09-19 06:24] LABS: MEAN CORPUSCULAR HEMOGLOBIN 31.5 pg (27.0-33.0); MEAN CORPUSCULAR HGB CONC 33.2 g/dl (32.0-36.5); MEAN CORPUSCULAR VOLUME 94.8 fl (80.0-96.0); PLATELET COUNT, AUTOMATED 167 10^3/uL (150-450); RED BLOOD COUNT 3.46 10^6/uL (4.00-5.40); WHITE BLOOD COUNT 7.5 10^3/uL (4.0-10.0)
[2023-09-19 06:43] LABS: HEMATOCRIT 32.8 % (36.0-47.0); HEMOGLOBIN 10.9 g/dl (12.0-15.5)
[2023-09-19 06:56] LABS: ALBUMIN 3.3 G/DL (3.2-5.2); ALKALINE PHOSPHATASE 83 U/L (46-116); ALT/SGPT 21 U/L (7.0-40); AST/SGOT 27 U/L (<34); BILIRUBIN,TOTAL 0.9 MG/DL (0.3-1.2); BLOOD UREA NITROGEN 16 MG/DL (9-23); CALCIUM LEVEL 8.3 MG/DL (8.3-10.6); CARBON DIOXIDE LEVEL 25 MMOL/L (20-31); CHLORIDE LEVEL 105 MMOL/L (98-107); CREATININE FOR GFR 0.73 MG/DL (0.55-1.30); GLOMERULAR FILTRATION RATE > 60.0 (>45); GLUCOSE, FASTING 205 MG/DL (74-106); MAGNESIUM LEVEL 1.4 MG/DL (1.8-2.4); POTASSIUM SERUM 4.4 MMOL/L (3.5-5.1); SODIUM LEVEL 138 MMOL/L (136-145); TOTAL PROTEIN 6.1 G/DL (5.7-8.2)
[2023-09-19 07:01] VITALS: BP 125/61; TEMP 98.1; O2SAT 95
[2023-09-19 08:33] LABS: PROCALCITONIN 0.07 ng/ml
[2023-09-19] MEDS: methylPREDNISolone 40MG 1ML VIAL IV SCH (08:58)
[2023-09-19] MEDS: MAGNESIUM OXIDE 400MG TAB (MAG-OX) PO SCH (08:59)
[2023-09-19] MEDS: PANTOPRAZOLE 40MG TAB (PROTONIX) PO SCH (08:59)
[2023-09-19] MEDS: ENOXAPARIN 40MG/0.4ML SYRINGE (J1650 PER 10MG) SC SCH (08:59)
[2023-09-19] MEDS ORDERED: CYANOCOBALAMIN 500 MCG TAB PO SCH (09:00)
[2023-09-19] MEDS: ENALAPRIL MALEATE 10 MG TAB PO SCH (09:00)
[2023-09-19] MEDS: BUDESONIDE EC 3MG CAP (ENTOCORT EC) PO SCH (09:00)
[2023-09-19] MEDS: MAG SULF 1GM/100ML (MAG RUN) 1 GM in IV 1 EA IV SCH (09:51)
[2023-09-19 14:13] VITALS: BP 113/54; TEMP 98.4; O2SAT 92
[2023-09-19 20:09] VITALS: BP 115/73; TEMP 98.1; O2SAT 92
[2023-09-20 05:54] VITALS: BP 132/71; TEMP 98.1; O2SAT 94
[2023-09-20 07:32] LABS: BASO % 0.1 % (0.0-1.0); EOS % 0.5 % (0.0-3.0); HEMATOCRIT 31.3 % (36.0-47.0); HEMOGLOBIN 10.6 g/dl (12.0-15.5); LYMPH # 1.4 10^3/uL (1.5-5.0); LYMPH % 17.5 % (24.0-44.0); MEAN CORPUSCULAR HEMOGLOBIN 32.7 pg (27.0-33.0); MEAN CORPUSCULAR HGB CONC 33.9 g/dl (32.0-36.5); MEAN CORPUSCULAR VOLUME 96.6 fl (80.0-96.0); MONO # 0.4 10^3/uL (0.0-0.8); MONO % 4.6 % (2.0-8.0); NEUTROPHILS % 76.8 % (36.0-66.0); PLATELET COUNT, AUTOMATED 142 10^3/uL (150-450); RED BLOOD COUNT 3.24 10^6/uL (4.00-5.40); WHITE BLOOD COUNT 7.8 10^3/uL (4.0-10.0)
[2023-09-20 07:54] LABS: C REACTIVE PROTEIN QUANTITATIV < 0.40 MG/DL (<1.0)
[2023-09-20 07:56] LABS: BLOOD UREA NITROGEN 17 MG/DL (9-23); CALCIUM LEVEL 8.3 MG/DL (8.3-10.6); CARBON DIOXIDE LEVEL 26 MMOL/L (20-31); CHLORIDE LEVEL 105 MMOL/L (98-107); CREATININE FOR GFR 0.63 MG/DL (0.55-1.30); GLOMERULAR FILTRATION RATE > 60.0 (>45); GLUCOSE, FASTING 169 MG/DL (74-106); MAGNESIUM LEVEL 1.9 MG/DL (1.8-2.4); POTASSIUM SERUM 4.3 MMOL/L (3.5-5.1); SODIUM LEVEL 137 MMOL/L (136-145)
[2023-09-20 07:57] VITALS: BP 133/71; TEMP 97.7; O2SAT 93
[2023-09-20 14:13] VITALS: BP 143/71; TEMP 97.6; O2SAT 93
[2023-09-20 21:09] VITALS: BP 127/71; TEMP 98.1; O2SAT 92
[2023-09-21 05:58] VITALS: BP 156/83; TEMP 98.1; O2SAT 95
[2023-09-21 07:19] LABS: BASO % 0.2 % (0.0-1.0); EOS % 0.6 % (0.0-3.0); HEMOGLOBIN 10.5 g/dl (12.0-15.5); LYMPH # 1.3 10^3/uL (1.5-5.0); LYMPH % 20.4 % (24.0-44.0); MEAN CORPUSCULAR HEMOGLOBIN 31.3 pg (27.0-33.0); MEAN CORPUSCULAR HGB CONC 32.8 g/dl (32.0-36.5); MEAN CORPUSCULAR VOLUME 95.2 fl (80.0-96.0); MONO # 0.3 10^3/uL (0.0-0.8); MONO % 5.1 % (2.0-8.0); NEUTROPHILS # 4.8 10^3/uL (1.5-8.5); NEUTROPHILS % 73.1 % (36.0-66.0); PLATELET COUNT, AUTOMATED 138 10^3/uL (150-450); RED BLOOD COUNT 3.36 10^6/uL (4.00-5.40); WHITE BLOOD COUNT 6.5 10^3/uL (4.0-10.0)
[2023-09-21 07:45] LABS: BLOOD UREA NITROGEN 18 MG/DL (9-23); CALCIUM LEVEL 8.6 MG/DL (8.3-10.6); CARBON DIOXIDE LEVEL 25 MMOL/L (20-31); CHLORIDE LEVEL 107 MMOL/L (98-107); GLOMERULAR FILTRATION RATE > 60.0 (>45); GLUCOSE, FASTING 170 MG/DL (74-106); MAGNESIUM LEVEL 1.8 MG/DL (1.8-2.4); POTASSIUM SERUM 4.2 MMOL/L (3.5-5.1); SODIUM LEVEL 139 MMOL/L (136-145)
[2023-09-21 14:22] VITALS: BP 118/69; TEMP 97.9; O2SAT 91
[2023-09-21 20:40] VITALS: BP 136/69; TEMP 97.1; O2SAT 93
[2023-09-22 06:06] VITALS: BP 167/81; TEMP 98.1; O2SAT 96
[2023-09-22 06:34] LABS: HEMATOCRIT 33.2 % (36.0-47.0); HEMOGLOBIN 10.9 g/dl (12.0-15.5); LYMPH # 1.3 10^3/uL (1.5-5.0); LYMPH % 26.1 % (24.0-44.0); MEAN CORPUSCULAR HGB CONC 32.8 g/dl (32.0-36.5); MEAN CORPUSCULAR VOLUME 97.4 fl (80.0-96.0); MONO # 0.3 10^3/uL (0.0-0.8); MONO % 6.2 % (2.0-8.0); NEUTROPHILS # 3.5 10^3/uL (1.5-8.5); NEUTROPHILS % 67.1 % (36.0-66.0); PLATELET COUNT, AUTOMATED 140 10^3/uL (150-450); RED BLOOD COUNT 3.41 10^6/uL (4.00-5.40); WHITE BLOOD COUNT 5.1 10^3/uL (4.0-10.0)
[2023-09-22 06:53] LABS: BLOOD UREA NITROGEN 19 MG/DL (9-23); CALCIUM LEVEL 8.6 MG/DL (8.3-10.6); CARBON DIOXIDE LEVEL 26 MMOL/L (20-31); CHLORIDE LEVEL 107 MMOL/L (98-107); CREATININE FOR GFR 0.61 MG/DL (0.55-1.30); GLOMERULAR FILTRATION RATE > 60.0 (>45); GLUCOSE, FASTING 168 MG/DL (74-106); MAGNESIUM LEVEL 1.7 MG/DL (1.8-2.4); POTASSIUM SERUM 4.2 MMOL/L (3.5-5.1); SODIUM LEVEL 139 MMOL/L (136-145)
[2023-09-22] MEDS: MAG SULF 1GM/100ML (MAG RUN) 1 GM in IV 1 EA IV SCH (10:30)
[2023-09-22] MEDS ORDERED: MORPHINE 2 MG/ML 1ML VIAL IV PRN (11:10)
[2023-09-22] MEDS: PERCOCET 5MG/325MG TAB PO PRN (15:25)
[2023-09-23 06:36] VITALS: BP 156/77; TEMP 97.9; O2SAT 95
[2023-09-23 06:37] LABS: EOS % 0.2 % (0.0-3.0); HEMATOCRIT 34.9 % (36.0-47.0); HEMOGLOBIN 11.7 g/dl (12.0-15.5); LYMPH # 1.2 10^3/uL (1.5-5.0); LYMPH % 21.9 % (24.0-44.0); MEAN CORPUSCULAR HEMOGLOBIN 31.5 pg (27.0-33.0); MEAN CORPUSCULAR HGB CONC 33.5 g/dl (32.0-36.5); MEAN CORPUSCULAR VOLUME 93.8 fl (80.0-96.0); MONO # 0.3 10^3/uL (0.0-0.8); MONO % 5.9 % (2.0-8.0); NEUTROPHILS # 3.9 10^3/uL (1.5-8.5); NEUTROPHILS % 71.3 % (36.0-66.0); PLATELET COUNT, AUTOMATED 130 10^3/uL (150-450); RED BLOOD COUNT 3.72 10^6/uL (4.00-5.40); WHITE BLOOD COUNT 5.4 10^3/uL (4.0-10.0)
[2023-09-23 07:01] LABS: BLOOD UREA NITROGEN 15 MG/DL (9-23); CALCIUM LEVEL 8.5 MG/DL (8.3-10.6); CARBON DIOXIDE LEVEL 27 MMOL/L (20-31); CHLORIDE LEVEL 103 MMOL/L (98-107); CREATININE FOR GFR 0.53 MG/DL (0.55-1.30); GLOMERULAR FILTRATION RATE > 60.0 (>45); GLUCOSE, FASTING 187 MG/DL (74-106); POTASSIUM SERUM 3.8 MMOL/L (3.5-5.1); SODIUM LEVEL 137 MMOL/L (136-145)
[2023-09-23 07:30] VITALS: BP 160/82; TEMP 97.5; O2SAT 95
[2023-09-23 08:15] VITALS: TEMP 97.5; O2SAT 96
[2023-09-23 09:39] VITALS: BP 160/82
[2023-09-23] MEDS ORDERED: BUDE3CAP5 PO (15:10)
[2023-09-23] MEDS ORDERED: PERCOCET PO (15:31)
== END 2023-09-23 17:31 | disposition home or self-care (01) | DRG 386 ==
LOC: M ED 15:39 → EDBD 15:39 → M ED INP 21:41 → ENRESERV 22:33 → M MS5PR 23:46
PROVIDERS: ADMIT Family Medicine; ATTEND Internal Medicine
DX: K50.90 Crohn's disease, unspecified, without complications (principal); K56.600 Partial intestinal obstruction, unspecified as to cause; E87.20 Acidosis, unspecified; I50.9 Heart failure, unspecified; I11.0 Hypertensive heart disease with heart failure; E78.5 Hyperlipidemia, unspecified; E11.9 Type 2 diabetes mellitus without complications; M19.90 Unspecified osteoarthritis, unspecified site; K76.0 Fatty (change of) liver, not elsewhere classified; E86.0 Dehydration; D50.9 Iron deficiency anemia, unspecified; K21.9 Gastro-esophageal reflux disease without esophagitis; Z85.810 Personal history of malignant neoplasm of tongue; M81.0 Age-related osteoporosis without current pathological fracture; F41.9 Anxiety disorder, unspecified; Z91.018 Allergy to other foods; Z88.8 Allergy status to other drugs, medicaments and biological substances; Z79.899 Other long term (current) drug therapy; E83.42 Hypomagnesemia

== ENCOUNTER 2023-11-12 14:00 | Outpatient (CLI) | payer MEDICARE ==
[~2023-11-12] VITALS: Ht 144.8 cm; Wt 79.0 kg
[~2023-11-12 14:00] MED LIST changes: +ACET-897 PO; +BUDE3CAP5 PO
[2023-11-12 14:15] VITALS: BP 152/70; O2SAT 98
[2023-11-12] MEDS: RISANKIZUMAB-RZAA 600 MG in D5W 250 ML IV ONE (14:45)
[2023-11-12 16:10] VITALS: BP 155/69; O2SAT 95
== END 2023-11-12 16:10 ==
LOC: M INFU 14:00
PROVIDERS: ATTEND Internal Medicine Gastroenterology
DX: K50.019 Crohn's disease of small intestine with unspecified complications (principal); Z88.1 Allergy status to other antibiotic agents; Z88.8 Allergy status to other drugs, medicaments and biological substances

== ENCOUNTER 2023-12-10 12:25 | Outpatient (CLI) | payer MEDICARE ==
[~2023-12-10] VITALS: Ht 144.8 cm; Wt 79.0 kg
[2023-12-10 12:25] VITALS: BP 146/82; O2SAT 97
[2023-12-10] MEDS: RISANKIZUMAB-RZAA 600 MG in D5W 250 ML IV ONE (12:57)
[2023-12-10 14:30] VITALS: BP 166/76; O2SAT 97
== END 2023-12-10 14:35 ==
LOC: M INFU 12:25
PROVIDERS: ATTEND Internal Medicine Gastroenterology
DX: K50.00 Crohn's disease of small intestine without complications (principal); Z88.1 Allergy status to other antibiotic agents; Z88.8 Allergy status to other drugs, medicaments and biological substances

== ENCOUNTER → 2023-12-23 | Outpatient (CLI) | payer MEDICARE | LOC: M SLEEP 20:00 | PROVIDERS: ATTEND Nurse Practitioner Adult Health | DX: G47.33 Obstructive sleep apnea (adult) (pediatric) (principal) ==

== ENCOUNTER 2024-01-07 12:20 | Outpatient (CLI) | payer MEDICARE ==
[~2024-01-07] VITALS: Ht 144.8 cm; Wt 81.8 kg
[2024-01-07 12:20] VITALS: O2SAT 96
[2024-01-07] MEDS: RISANKIZUMAB-RZAA 600 MG in D5W 250 ML IV ONE (12:50)
[2024-01-07 13:55] VITALS: BP 143/65; O2SAT 96
== END 2024-01-07 13:55 ==
LOC: M INFU 12:20
PROVIDERS: ATTEND Internal Medicine Gastroenterology
DX: K50.00 Crohn's disease of small intestine without complications (principal); Z88.1 Allergy status to other antibiotic agents; Z88.8 Allergy status to other drugs, medicaments and biological substances

== ENCOUNTER → 2024-01-24 | Outpatient (CLI) | payer MEDICARE ==
[~2024-01-24] MED LIST changes: +ONDA-282 PO; -ONDA4TAB6 PO
== END ==
LOC: M SLEEP 20:00
PROVIDERS: ATTEND Nurse Practitioner Adult Health
DX: G47.33 Obstructive sleep apnea (adult) (pediatric) (principal)

== ENCOUNTER → 2024-03-03 | Outpatient (CLI) | payer MEDICARE ==
[2024-03-03 12:10] LABS: HEMOGLOBIN A1c 6.6 % (4.0-6.0)
== END ==
LOC: M LAB 10:20
PROVIDERS: ATTEND Nurse Practitioner Family
DX: E11.69 Type 2 diabetes mellitus with other specified complication (principal)

== ENCOUNTER → 2024-03-09 | Outpatient (CLI) | payer MEDICARE ==
[2024-03-09 14:48] LABS: HEMOGLOBIN 10.9 g/dl (12.0-15.5); MEAN CORPUSCULAR HEMOGLOBIN 31.2 pg (27.0-33.0); MEAN CORPUSCULAR VOLUME 94.6 fl (80.0-96.0); PLATELET COUNT, AUTOMATED 141 10^3/uL (150-450); RED BLOOD COUNT 3.49 10^6/uL (4.00-5.40); WHITE BLOOD COUNT 5.3 10^3/uL (4.0-10.0)
[2024-03-09 15:13] LABS: PERCENT SATURATION 21.3 % (13.2-45.0)
[2024-03-09 15:15] LABS: FERRITIN 53.7 NG/ML (7.3-270.7)
== END ==
LOC: M LAB 14:14
PROVIDERS: ATTEND Internal Medicine Hematology
DX: D50.9 Iron deficiency anemia, unspecified (principal)

== ENCOUNTER → 2024-06-30 | Outpatient (REF) | payer MEDICARE ==
[~2024-06-30] MED LIST changes: +GABA-1172 PO; -GABA-282 PO
[2024-06-30 18:28] LABS: CREATININE, URINE 29.3 MG/DL; MAU/CREAT RATIO 44.3 MCG/MG (0.0-30.0)
== END ==
LOC: M LAB REF 17:03
PROVIDERS: ATTEND Nurse Practitioner Family
DX: E11.69 Type 2 diabetes mellitus with other specified complication (principal)

== ENCOUNTER → 2024-08-23 | Outpatient (CLI) | payer MEDICARE ==
[~2024-08-23] MED LIST changes: -POTA10808 PO; +POTA10809 PO
== END ==
LOC: M WHC 14:36
PROVIDERS: ATTEND Nurse Practitioner Family
DX: Z12.31 Encounter for screening mammogram for malignant neoplasm of breast (principal); R92.313 Mammographic fatty tissue density, bilateral breasts

== ENCOUNTER → 2024-09-23 | Outpatient (CLI) | payer MEDICARE ==
[2024-09-23 10:49] LABS: BASO % 0.4 % (0.0-1.0); EOS # 0.1 10^3/uL (0.0-0.5); EOS % 1.5 % (0.0-3.0); HEMATOCRIT 32.8 % (36.0-47.0); HEMOGLOBIN 10.8 g/dl (12.0-15.5); LYMPH # 1.1 10^3/uL (1.5-5.0); LYMPH % 23.6 % (24.0-44.0); MEAN CORPUSCULAR HEMOGLOBIN 31.7 pg (27.0-33.0); MEAN CORPUSCULAR HGB CONC 32.9 g/dl (32.0-36.5); MEAN CORPUSCULAR VOLUME 96.2 fl (80.0-96.0); MONO # 0.4 10^3/uL (0.0-0.8); MONO % 8.1 % (2.0-8.0); NEUTROPHILS # 3.1 10^3/uL (1.5-8.5); NEUTROPHILS % 65.8 % (36.0-66.0); PLATELET COUNT, AUTOMATED 140 10^3/uL (150-450); RED BLOOD COUNT 3.41 10^6/uL (4.00-5.40); WHITE BLOOD COUNT 4.7 10^3/uL (4.0-10.0)
[2024-09-23 11:22] LABS: FREE T4 1.21 NG/DL (0.89-1.76); VITAMIN B12 LEVEL 661 PG/ML (211-911)
[2024-09-23 11:23] LABS: FERRITIN 76.2 NG/ML (7.3-270.7)
[2024-09-23 11:25] LABS: IRON (FE) 77 UG/DL (50-170)
[2024-09-23 11:28] LABS: ALBUMIN 3.9 G/DL (3.2-5.2); ALKALINE PHOSPHATASE 150 U/L (35-104); ALT/SGPT 24 U/L (7.0-40); AST/SGOT 31 U/L (<34); BLOOD UREA NITROGEN 21 MG/DL (9-23); CALCIUM LEVEL 9.9 MG/DL (8.3-10.6); CARBON DIOXIDE LEVEL 26 MMOL/L (20-31); CHLORIDE LEVEL 102 MMOL/L (98-107); CREATININE FOR GFR 0.62 MG/DL (0.55-1.30); FOLATE > 24.00 NG/ML (>5.4); GLOMERULAR FILTRATION RATE > 60.0 (>39); GLUCOSE, FASTING 167 MG/DL (74-106); POTASSIUM SERUM 4.4 MMOL/L (3.5-5.1); SODIUM LEVEL 141 MMOL/L (136-145); TOTAL PROTEIN 7.5 G/DL (5.7-8.2)
== END ==
LOC: M LAB 09:48
PROVIDERS: ATTEND Internal Medicine Hematology
DX: D50.9 Iron deficiency anemia, unspecified (principal); K50.919 Crohn's disease, unspecified, with unspecified complications; D53.9 Nutritional anemia, unspecified

== ENCOUNTER → 2024-09-23 | Outpatient (CLI) | payer MEDICARE ==
[2024-09-23 10:44] LABS: BASO % 0.6 % (0.0-1.0); EOS # 0.1 10^3/uL (0.0-0.5); EOS % 1.7 % (0.0-3.0); HEMATOCRIT 32.1 % (36.0-47.0); HEMOGLOBIN 10.9 g/dl (12.0-15.5); LYMPH # 1.1 10^3/uL (1.5-5.0); LYMPH % 24.4 % (24.0-44.0); MEAN CORPUSCULAR HEMOGLOBIN 32.6 pg (27.0-33.0); MEAN CORPUSCULAR VOLUME 96.1 fl (80.0-96.0); MONO # 0.4 10^3/uL (0.0-0.8); MONO % 7.5 % (2.0-8.0); NEUTROPHILS # 3.1 10^3/uL (1.5-8.5); NEUTROPHILS % 65.4 % (36.0-66.0); PLATELET COUNT, AUTOMATED 135 10^3/uL (150-450); RED BLOOD COUNT 3.34 10^6/uL (4.00-5.40); WHITE BLOOD COUNT 4.7 10^3/uL (4.0-10.0)
[2024-09-23 11:21] LABS: VITAMIN B12 LEVEL 625 PG/ML (211-911)
[2024-09-23 11:22] LABS: ALBUMIN 3.6 G/DL (3.2-5.2); ALKALINE PHOSPHATASE 136 U/L (35-104); ALT/SGPT 20 U/L (7.0-40); AST/SGOT 27 U/L (<34); BILIRUBIN,TOTAL 0.9 MG/DL (0.3-1.2); BLOOD UREA NITROGEN 21 MG/DL (9-23); CALCIUM LEVEL 9.7 MG/DL (8.3-10.6); CARBON DIOXIDE LEVEL 27 MMOL/L (20-31); CHLORIDE LEVEL 102 MMOL/L (98-107); CREATININE FOR GFR 0.65 MG/DL (0.55-1.30); GLOMERULAR FILTRATION RATE > 60.0 (>39); GLUCOSE, FASTING 171 MG/DL (74-106); POTASSIUM SERUM 4.5 MMOL/L (3.5-5.1); SODIUM LEVEL 141 MMOL/L (136-145); TOTAL PROTEIN 6.8 G/DL (5.7-8.2)
[2024-09-23 11:34] LABS: HEPATITIS B SURFACE ANTIGEN NEGATIVE (NEGATIVE)
[2024-09-27 15:07] LABS: QuantiFERON-TB Gold Plus NEGATIVE (NEGATIVE)
== END ==
LOC: M LAB 09:53
PROVIDERS: ATTEND Internal Medicine Gastroenterology
DX: K76.0 Fatty (change of) liver, not elsewhere classified (principal); K74.60 Unspecified cirrhosis of liver; K50.00 Crohn's disease of small intestine without complications

== ENCOUNTER → 2024-09-24 | Outpatient (CLI) | payer MEDICARE | LOC: M WHC 08:50 | PROVIDERS: ATTEND Internal Medicine Gastroenterology | DX: K76.0 Fatty (change of) liver, not elsewhere classified (principal); R16.1 Splenomegaly, not elsewhere classified; K74.60 Unspecified cirrhosis of liver; R16.0 Hepatomegaly, not elsewhere classified ==

== ENCOUNTER → 2024-10-14 | Outpatient (CLI) | payer MEDICARE | LOC: M LAB 09:24 | PROVIDERS: ATTEND Internal Medicine Gastroenterology | DX: K74.00 Hepatic fibrosis, unspecified (principal) ==

== ENCOUNTER 2024-11-19 08:28 | Outpatient (CLI) | payer MEDICARE ==
[~2024-11-19] VITALS: Ht 144.8 cm; Wt 81.8 kg
[2024-11-19 08:40] VITALS: BP 165/72; O2SAT 98
[2024-11-19] MEDS: RISANKIZUMAB-RZAA 600 MG in D5W 250 ML IV ONE (09:29)
[2024-11-19 11:00] VITALS: BP 115/56; O2SAT 97
[2024-11-19 11:50] VITALS: BP 142/69; O2SAT 95
== END 2024-11-19 11:50 ==
LOC: M INFU 08:28
PROVIDERS: ATTEND Internal Medicine Gastroenterology
DX: K50.90 Crohn's disease, unspecified, without complications (principal); Z88.1 Allergy status to other antibiotic agents; Z88.8 Allergy status to other drugs, medicaments and biological substances; Z91.018 Allergy to other foods
CPT/HCPCS: 96365; 96366; J2327

== ENCOUNTER 2024-12-17 08:26 | Outpatient (CLI) | payer MEDICARE ==
[~2024-12-17] VITALS: Ht 144.8 cm; Wt 82.0 kg
[~2024-12-17 08:26] MED LIST changes: -PRED50TA PO; +PRED50TA57 PO
[2024-12-17 08:47] VITALS: BP 185/84; O2SAT 95
[2024-12-17] MEDS: RISANKIZUMAB-RZAA 600 MG in D5W 250 ML IV ONE (09:26)
[2024-12-17 10:42] VITALS: BP 134/63; O2SAT 96
== END 2024-12-17 10:40 ==
LOC: M INFU 08:26
PROVIDERS: ATTEND Internal Medicine Gastroenterology
DX: K50.919 Crohn's disease, unspecified, with unspecified complications (principal); K52.9 Noninfective gastroenteritis and colitis, unspecified; Z88.1 Allergy status to other antibiotic agents; Z88.8 Allergy status to other drugs, medicaments and biological substances

== ENCOUNTER → 2024-12-27 | Outpatient (CLI) | payer MEDICARE ==
[~2024-12-27] MED LIST changes: +[UNRECOGNIZED DRUG - CODE] IV; +[UNRECOGNIZED DRUG - OTHER] PO
[2024-12-27 11:18] LABS: BASO % 0.5 % (0.0-1.0); EOS # 0.1 10^3/uL (0.0-0.5); EOS % 1.9 % (0.0-3.0); HEMOGLOBIN 10.5 g/dl (12.0-15.5); LYMPH % 24.8 % (24.0-44.0); MEAN CORPUSCULAR HEMOGLOBIN 30.9 pg (27.0-33.0); MEAN CORPUSCULAR HGB CONC 31.8 g/dl (32.0-36.5); MEAN CORPUSCULAR VOLUME 97.1 fl (80.0-96.0); MONO # 0.3 10^3/uL (0.0-0.8); NEUTROPHILS # 2.6 10^3/uL (1.5-8.5); NEUTROPHILS % 64.1 % (36.0-66.0); PLATELET COUNT, AUTOMATED 125 10^3/uL (150-450); WHITE BLOOD COUNT 4.1 10^3/uL (4.0-10.0)
[2024-12-27 11:38] LABS: CREATININE, URINE 75.4 MG/DL; MAU/CREAT RATIO 75.5 MCG/MG (0.0-30.0)
[2024-12-27 11:43] LABS: HEMOGLOBIN A1c 6.8 % (4.0-6.0)
[2024-12-27 11:44] LABS: ALBUMIN 3.6 G/DL (3.2-5.2); BILIRUBIN,TOTAL 0.9 MG/DL (0.3-1.2); CALCIUM LEVEL 9.4 MG/DL (8.3-10.6); CHOLESTEROL RISK RATIO 4.63 (<5); CREATININE FOR GFR 0.74 MG/DL (0.55-1.30); GLOMERULAR FILTRATION RATE 86.4 (>39); HDL CHOLESTEROL 28.7 MG/DL (>40); LDL CHOLESTEROL 47.5 MG/DL (<100); NON-HDL-C 104.3 MG/DL; TOTAL PROTEIN 6.7 G/DL (5.7-8.2)
== END ==
LOC: M LAB 10:10
PROVIDERS: ATTEND Nurse Practitioner Family
DX: I10 Essential (primary) hypertension (principal); E11.69 Type 2 diabetes mellitus with other specified complication; E78.5 Hyperlipidemia, unspecified; D50.9 Iron deficiency anemia, unspecified

== ENCOUNTER → 2025-03-11 | Outpatient (CLI) | payer MEDICARE ==
[~2025-03-11] MED LIST changes: +MAGN400C PO; -PRAV40TA2 PO; +PRAV40TA85 PO
[2025-03-11 09:33] LABS: CALCIUM LEVEL 9.7 MG/DL (8.3-10.6); CARBON DIOXIDE LEVEL 28.0 MMOL/L (20-31); CHLORIDE LEVEL 98.0 MMOL/L (98-107); CREATININE FOR GFR 0.84 MG/DL (0.55-1.30); GLOMERULAR FILTRATION RATE 74.3 (>39); MAGNESIUM LEVEL 1.7 MG/DL (1.8-2.4); POTASSIUM SERUM 4.5 MMOL/L (3.5-5.1); SODIUM LEVEL 140.0 MMOL/L (136-145)
== END ==
LOC: M LAB 08:09
PROVIDERS: ATTEND Internal Medicine Cardiovascular Disease
DX: E83.42 Hypomagnesemia (principal)

== ENCOUNTER 2025-04-11 17:30 | Emergency (ER) | payer MEDICARE ==
[~2025-04-11] VITALS: Ht 144.8 cm; Wt 82.0 kg
[2025-04-11] MEDS: ONDANSETRON 4MG ORAL DISINTEGRATING TAB PO ONE (19:28)
[2025-04-11 20:05] LABS: BASO # 0.0 10^3/uL (0.0-0.2); BASO % 0.7 % (0.0-1.0); EOS # 0.0 10^3/uL (0.0-0.5); EOS % 0.2 % (0.0-3.0); LYMPH # 1.1 10^3/uL (1.5-5.0); LYMPH % 19.0 % (24.0-44.0); MONO # 0.6 10^3/uL (0.0-0.8); MONO % 10.0 % (2.0-8.0); NEUTROPHILS # 4.0 10^3/uL (1.5-8.5); NEUTROPHILS % 69.9 % (36.0-66.0); PLATELET COUNT, AUTOMATED 130 10^3/uL (150-450)
[2025-04-11] MEDS ORDERED: ACETAMINOPHEN 325 MG TAB PO ONE (20:25)
[2025-04-11] MEDS ORDERED: METOCLOPRAMIDE 10 MG TAB PO ONE (20:25)
[2025-04-11] MEDS: ACETAMINOPHEN *IV* 1,000 MG in IV 1 EA IV ONE (21:08)
[2025-04-11 22:30] VITALS: BP 142/63
[2025-04-11 22:31] VITALS: TEMP 100.9; O2SAT 95
[2025-04-11 22:32] VITALS: O2SAT 93
[2025-04-11] MEDS ORDERED: REGL10TA6 PO (22:34)
== END 2025-04-11 22:47 | disposition home or self-care (01) ==
LOC: M ED 17:30
DX: U07.1 COVID-19 (principal); I11.0 Hypertensive heart disease with heart failure; E11.40 Type 2 diabetes mellitus with diabetic neuropathy, unspecified; J44.9 Chronic obstructive pulmonary disease, unspecified; Z87.442 Personal history of urinary calculi; Z79.84 Long term (current) use of oral hypoglycemic drugs; Z79.899 Other long term (current) drug therapy; Z88.1 Allergy status to other antibiotic agents; Z88.8 Allergy status to other drugs, medicaments and biological substances; Z91.018 Allergy to other foods
CPT/HCPCS: 80047; 85025; 87486; 87581; 87633; 87798; 96365; 96366; 96375; 99285; J0131; J2765

== ENCOUNTER 2025-05-07 15:46 | Observation (INO) | payer MEDICARE, MEDICAID ==
[~2025-05-07 15:46] MED LIST changes: +REGL10TA6 PO
[2025-05-07] MEDS: METOPROLOL 5 MG/5 ML VIAL IV SCH (16:35)
[2025-05-07] MEDS: ASPIRIN 81 MG CHEWABLE TABLET PO ONE (16:43)
[2025-05-07 16:54] LABS: BASO # 0.0 10^3/uL (0.0-0.2); BASO % 0.7 % (0.0-1.0); EOS # 0.1 10^3/uL (0.0-0.5); EOS % 1.3 % (0.0-3.0); LYMPH # 1.2 10^3/uL (1.5-5.0); LYMPH % 19.9 % (24.0-44.0); MONO # 0.4 10^3/uL (0.0-0.8); MONO % 6.7 % (2.0-8.0); NEUTROPHILS # 4.4 10^3/uL (1.5-8.5); NEUTROPHILS % 71.1 % (36.0-66.0); PLATELET COUNT, AUTOMATED 159 10^3/uL (150-450)
[2025-05-07 17:02] LABS: INR 0.89
[2025-05-07 17:05] LABS: ALT/SGPT 23 U/L (7.0-40); AST/SGOT 44 U/L (<34); CALCIUM LEVEL 10.0 MG/DL (8.3-10.6); CARBON DIOXIDE LEVEL 25 MMOL/L (20-31); CHLORIDE LEVEL 102 MMOL/L (98-107); CK-MB VALUE MASS < 1.0 NG/ML (<3.6); CREATININE FOR GFR 0.73 MG/DL (0.55-1.30); GLOMERULAR FILTRATION RATE 87.9 (>39); MAGNESIUM LEVEL 1.5 MG/DL (1.8-2.4); PHOSPHORUS LEVEL 3.3 MG/DL (2.4-5.1); POTASSIUM SERUM 4.3 MMOL/L (3.5-5.1); SODIUM LEVEL 140 MMOL/L (136-145)
[2025-05-07 17:07] LABS: FREE T4 1.05 NG/DL (0.89-1.76)
[2025-05-07 17:10] LABS: CPK CREATINE PHOSPHOKINASE 44 U/L (34-145)
[2025-05-07] MEDS: MAGNESIUM OXIDE 400 MG TAB PO ONE (17:41)
[2025-05-07] MEDS: METOPROLOL TART 25 MG TABLET PO ONE (17:42)
[2025-05-07 18:06] LABS: CK-MB VALUE MASS < 1.0 NG/ML (<3.6)
[2025-05-07 18:10] LABS: CPK CREATINE PHOSPHOKINASE 38 U/L (34-145)
[2025-05-07] MEDS: NS 500 ML IV ONE (18:50)
[2025-05-07] MEDS: APIXABAN 5 MG TAB PO ONE (18:52)
[2025-05-07] MEDS: NS (Normal Saline) 0.9% 1,000 ML IV ONE (20:00)
[2025-05-07] MEDS ORDERED: ACETAMINOPHEN 325 MG TAB PO PRN (21:30)
[2025-05-07] MEDS ORDERED: MAALOX 30 ML SUSP *UDC PO PRN (21:30)
[2025-05-07] MEDS ORDERED: MOM 30 ML SUSPENSION UDC PO PRN (21:30)
[2025-05-07 23:10] LABS: KETONE, URINE AUTO RFX NEGATIVE (NEGATIVE); LEUKOCYTE ESTERASE UR AUTO RFX NEGATIVE (NEGATIVE); NITRITE, URINE AUTO RFX NEGATIVE (NEGATIVE); RBC, URINE AUTO RFX 0 /HPF (0-3); SQUAM EPITHELIAL CELL UR AURFX 1 /HPF (0-6); WBC, URINE AUTO RFX 1 /HPF (0-3)
[2025-05-08] MEDS: ALBUTEROL 90 MCG/ACT 8 GM HFA INHALER INH SCH (01:00)
[2025-05-08] MEDS ORDERED: GLUCAGON INJ 1 MG VIAL SC PRN (05:55)
[2025-05-08] MEDS ORDERED: GLUCOSE 4 GM CHEW PO PRN (05:55)
[2025-05-08] MEDS ORDERED: DEXTROSE 50% 50 ML SYRINGE IV PRN (05:55)
[2025-05-08] MEDS ORDERED: METO25TA4 PO (06:38)
[2025-05-08] MEDS ORDERED: TALK1KIT MC (06:39)
[2025-05-08] MEDS ORDERED: XARE20TA PO (06:40)
[2025-05-08] MEDS: MIDODRINE 5 MG TAB PO ONE (07:18)
[2025-05-08] MEDS: MAG SULF 1GM/100ML (MAG RUN) 1 GM in IV 1 EA IV ONE (07:19)
[2025-05-08] MEDS: METOPROLOL TART 25 MG TABLET PO ONE (07:19)
[2025-05-08 07:21] LABS: PLATELET COUNT, AUTOMATED 126 10^3/uL (150-450)
[2025-05-08 07:55] LABS: ALT/SGPT 17 U/L (7.0-40); AST/SGOT 33 U/L (<34); CALCIUM LEVEL 8.7 MG/DL (8.3-10.6); CARBON DIOXIDE LEVEL 27 MMOL/L (20-31); CHLORIDE LEVEL 104 MMOL/L (98-107); CHOLESTEROL LEVEL 122 MG/DL (<200); CHOLESTEROL RISK RATIO 4.13 (<5); CREATININE FOR GFR 0.68 MG/DL (0.55-1.30); GLOMERULAR FILTRATION RATE > 90.0 (>39); LDL CHOLESTEROL 44.9 MG/DL (<100); MAGNESIUM LEVEL 1.6 MG/DL (1.8-2.4); NON-HDL-C 92.5 MG/DL; PHOSPHORUS LEVEL 3.5 MG/DL (2.4-5.1); POTASSIUM SERUM 3.9 MMOL/L (3.5-5.1); SODIUM LEVEL 137 MMOL/L (136-145); TRIGLYCERIDES LEVEL 238 MG/DL (<150)
[2025-05-08] MEDS: INSULIN LISPRO (NovoLOG) PER UNIT SC SCH (08:38)
[2025-05-08] MEDS: DOCUSATE SODIUM 100 MG CAPSULE PO SCH (08:38)
[2025-05-08] MEDS ORDERED: METOPROLOL TART 50 MG TAB PO SCH (09:00)
[2025-05-08] MEDS: FUROSEMIDE 40 MG/4 ML VIAL IV ONE (10:19)
[2025-05-08] MEDS: amLODIPine 10 MG TAB PO ONE (10:19)
[2025-05-08] MEDS: ONDANSETRON 4MG/2ML VIAL IV ONE (11:10)
[2025-05-08] MEDS: hydrALAZINE 20 MG/ML 1 ML VIAL IV SCH (12:00)
[2025-05-08] MEDS ORDERED: cefTRIAXone SOD 2 GM in DEXTROSE 5% (D5W) ADV/MINI-BAG 50 ML IV SCH (12:00)
[2025-05-08 12:02] LABS: C REACTIVE PROTEIN QUANTITATIV < 0.50 MG/DL (<1.0)
[2025-05-08] MEDS: MAG SULF 1GM/100ML (MAG RUN) 1 GM in IV 1 EA IV SCH (12:14)
[2025-05-08] MEDS ORDERED: ISOVUE-370 76% 100 ML VIAL As Ordered ONE (12:51)
[2025-05-08] MEDS: MAGNESIUM OXIDE 400 MG TAB PO ONE (13:12)
[2025-05-08] MEDS: METOPROLOL TART 25 MG TABLET PO SCH (13:12)
[2025-05-08] MEDS: LOSARTAN 25 MG TAB PO ONE (13:13)
[2025-05-08] MEDS: RIVAROXABAN 20MG TAB PO SCH (17:52)
[2025-05-08 20:55] VITALS: BP 124/58; TEMP 97.2; O2SAT 95
[2025-05-09] VITALS (11 sets, daily range): BP systolic 143–156; BP diastolic 63–67; TEMP 96.8–97.7; O2SAT 88–97
[2025-05-09 06:08] LABS: BASO # 0.0 10^3/uL (0.0-0.2); BASO % 0.8 % (0.0-1.0); EOS # 0.1 10^3/uL (0.0-0.5); EOS % 2.5 % (0.0-3.0); LYMPH # 1.3 10^3/uL (1.5-5.0); LYMPH % 27.6 % (24.0-44.0); MONO # 0.4 10^3/uL (0.0-0.8); MONO % 9.2 % (2.0-8.0); NEUTROPHILS # 2.9 10^3/uL (1.5-8.5); NEUTROPHILS % 59.7 % (36.0-66.0); PLATELET COUNT, AUTOMATED 147 10^3/uL (150-450)
[2025-05-09 06:38] LABS: CALCIUM LEVEL 8.5 MG/DL (8.3-10.6); CARBON DIOXIDE LEVEL 29 MMOL/L (20-31); CHLORIDE LEVEL 101 MMOL/L (98-107); CREATININE FOR GFR 0.67 MG/DL (0.55-1.30); GLOMERULAR FILTRATION RATE > 90.0 (>39); POTASSIUM SERUM 3.5 MMOL/L (3.5-5.1); SODIUM LEVEL 136 MMOL/L (136-145)
[2025-05-09] MEDS: ONDANSETRON 4MG/2ML VIAL IV PRN (06:38)
[2025-05-09] MEDS ORDERED: TOPR100T PO (08:50)
[2025-05-09] MEDS: METOPROLOL SUCC. 100 MG *XL* TAB PO ONE (09:18)
[2025-06-20] MEDS ORDERED: TORS20TA2 (13:31)
== END 2025-05-09 15:18 | disposition home or self-care (01) ==
LOC: M ED 15:46 → M ED INP 15:47 → INTOOBSV 05-08 16:27 → OBSVTOIN 05-08 16:27 → M PCU 05-08 20:52
PROVIDERS: ADMIT Student in an Organized Health Care Education/Training Program; ATTEND Student in an Organized Health Care Education/Training Program
DX: I48.0 Paroxysmal atrial fibrillation (principal); I16.0 Hypertensive urgency; U07.1 COVID-19; I11.0 Hypertensive heart disease with heart failure; E78.5 Hyperlipidemia, unspecified; E11.9 Type 2 diabetes mellitus without complications; J44.9 Chronic obstructive pulmonary disease, unspecified; K50.90 Crohn's disease, unspecified, without complications; G47.33 Obstructive sleep apnea (adult) (pediatric); M19.90 Unspecified osteoarthritis, unspecified site; D64.9 Anemia, unspecified; K57.30 Diverticulosis of large intestine without perforation or abscess without bleeding; K75.81 Nonalcoholic steatohepatitis (NASH); I50.9 Heart failure, unspecified; Z79.899 Other long term (current) drug therapy; Z79.84 Long term (current) use of oral hypoglycemic drugs
CPT/HCPCS: 36415; 71045; 80048; 80053; 80061; 80076; 81001; 82550; 82553; 83735; 84100; 84145; 84439; 84443; 84484; 85025; 85027; 85610; 85652; 85730; 86140; 87040; 87077; 87154; 87186; 87486; 87581; 87633; 87798; 93005; 93041; 93306; 94640; 94660; 94664; 94760; 96361; 96374; 96375; 96376; 97116; 97161; 99285; J0616; J1815; J1938; J2405; J3475; Q9967

== ENCOUNTER 2025-05-22 15:59 | Emergency (ER) | payer MEDICARE, MEDICAID ==
[~2025-05-22 15:59] MED LIST changes: +TALK1KIT MC; +TOPR100T PO; +XARE20TA PO
[2025-05-22 16:38] LABS: BASO # 0.0 10^3/uL (0.0-0.2); BASO % 0.7 % (0.0-1.0); EOS # 0.1 10^3/uL (0.0-0.5); EOS % 1.3 % (0.0-3.0); LYMPH # 1.3 10^3/uL (1.5-5.0); LYMPH % 24.4 % (24.0-44.0); MONO # 0.4 10^3/uL (0.0-0.8); MONO % 6.9 % (2.0-8.0); NEUTROPHILS # 3.6 10^3/uL (1.5-8.5); NEUTROPHILS % 66.3 % (36.0-66.0); PLATELET COUNT, AUTOMATED 168 10^3/uL (150-450)
[2025-05-22 16:41] VITALS: TEMP 97.6
[2025-05-22 16:51] LABS: INR 1.78
[2025-05-22 17:13] LABS: CALCIUM LEVEL 8.8 MG/DL (8.3-10.6); CARBON DIOXIDE LEVEL 24 MMOL/L (20-31); CHLORIDE LEVEL 105 MMOL/L (98-107); CK-MB VALUE MASS < 1.0 NG/ML (<3.6); CREATININE FOR GFR 0.67 MG/DL (0.55-1.30); GLOMERULAR FILTRATION RATE > 90.0 (>39); POTASSIUM SERUM 4.0 MMOL/L (3.5-5.1); SODIUM LEVEL 143 MMOL/L (136-145)
[2025-05-22 17:16] LABS: CPK CREATINE PHOSPHOKINASE 32 U/L (34-145)
[2025-05-22] MEDS ORDERED: ISOVUE-370 76% 100 ML VIAL As Ordered ONE (17:36)
[2025-05-22 17:53] LABS: ALT/SGPT 11 U/L (7.0-40); AST/SGOT 28 U/L (<34)
[2025-05-22 17:56] LABS: FREE T4 1.10 NG/DL (0.89-1.76)
[2025-05-22] MEDS: MORPHINE 4 MG/ML 1 ML VIAL IV PRN (17:57)
[2025-05-22] MEDS: ONDANSETRON 4MG 2ML VIAL IV ONE (17:57)
[2025-05-22 18:45] VITALS: BP 141/60
[2025-05-22 18:52] LABS: CK-MB VALUE MASS < 1.0 NG/ML (<3.6)
[2025-05-22 18:54] LABS: CPK CREATINE PHOSPHOKINASE 27 U/L (34-145)
[2025-05-22 19:05] VITALS: O2SAT 97
== END 2025-05-22 19:51 | disposition home or self-care (01) ==
LOC: M ED 15:59
DX: R07.9 Chest pain, unspecified (principal); E11.9 Type 2 diabetes mellitus without complications; I11.0 Hypertensive heart disease with heart failure; I48.91 Unspecified atrial fibrillation; I25.10 Atherosclerotic heart disease of native coronary artery without angina pectoris; E78.5 Hyperlipidemia, unspecified; Z87.440 Personal history of urinary (tract) infections; Z87.19 Personal history of other diseases of the digestive system; G47.30 Sleep apnea, unspecified; Z87.442 Personal history of urinary calculi; Z85.118 Personal history of other malignant neoplasm of bronchus and lung; Z79.84 Long term (current) use of oral hypoglycemic drugs; Z79.899 Other long term (current) drug therapy; Z88.1 Allergy status to other antibiotic agents; Z88.8 Allergy status to other drugs, medicaments and biological substances; Z91.018 Allergy to other foods
CPT/HCPCS: 71045; 71275; 80048; 80076; 82550; 82553; 83690; 83880; 84439; 84443; 84484; 85025; 85610; 85730; 87486; 87581; 87633; 87798; 93005; 93041; 94760; 96374; 96375; 99285; J2405; Q9967

== ENCOUNTER 2025-06-03 09:17 | Inpatient (IN) | payer MEDICARE, MEDICAID ==
[2025-06-03] VITALS (16 sets, daily range): BP systolic 109–159; BP diastolic 59–71; PULSE 65; TEMP 97.1–99.1; O2SAT 92–100
[~2025-06-03] VITALS: Ht 144.8 cm; Wt 82.1 kg
[2025-06-03] MEDS ORDERED: FURO20TA2 PO (09:55)
[2025-06-03 10:08] LABS: BASO # 0.0 10^3/uL (0.0-0.2); BASO % 0.2 % (0.0-1.0); EOS # 0.0 10^3/uL (0.0-0.5); EOS % 0.8 % (0.0-3.0); LYMPH # 1.1 10^3/uL (1.5-5.0); LYMPH % 23.8 % (24.0-44.0); MONO # 0.3 10^3/uL (0.0-0.8); MONO % 6.8 % (2.0-8.0); NEUTROPHILS # 3.2 10^3/uL (1.5-8.5); NEUTROPHILS % 68.0 % (36.0-66.0); PLATELET COUNT, AUTOMATED 139 10^3/uL (150-450)
[2025-06-03 10:49] LABS: ALT/SGPT < 9 U/L (7.0-40); AST/SGOT 22 U/L (<34); CK-MB VALUE MASS < 1.0 NG/ML (<3.6)
[2025-06-03 10:54] LABS: CPK CREATINE PHOSPHOKINASE 37 U/L (34-145)
[2025-06-03 11:13] LABS: CALCIUM LEVEL 9.2 MG/DL (8.3-10.6); CARBON DIOXIDE LEVEL 27 MMOL/L (20-31); CHLORIDE LEVEL 101 MMOL/L (98-107); CREATININE FOR GFR 0.77 MG/DL (0.55-1.30); GLOMERULAR FILTRATION RATE 82.4 (>39); POTASSIUM SERUM 3.9 MMOL/L (3.5-5.1); SODIUM LEVEL 142 MMOL/L (136-145)
[2025-06-03] MEDS: PANTOPRAZOLE 40MG VIAL IV ONE (11:25)
[2025-06-03] MEDS: PANTOPRAZOLE SODIUM 40 MG in D5W 50 ML IV SCH (11:28)
[2025-06-03] MEDS: ONDANSETRON 4MG/2ML VIAL IV ONE (11:50)
[2025-06-03] MEDS ORDERED: GLUCAGON INJ 1 MG VIAL SC PRN (12:35)
[2025-06-03] MEDS ORDERED: DEXTROSE 50% 50 ML SYRINGE IV PRN (12:35)
[2025-06-03] MEDS ORDERED: GLUCOSE 4 GM CHEW PO PRN (12:35)
[2025-06-03 13:45] LABS: IRON (FE) 41 UG/DL (50-170); PERCENT SATURATION 10.0 % (13.2-45.0)
[2025-06-03 14:42] LABS: VITAMIN B12 LEVEL 442 PG/ML (211-911)
[2025-06-03 16:12] LABS: CK-MB VALUE MASS < 1.0 NG/ML (<3.6)
[2025-06-03 16:13] LABS: CPK CREATINE PHOSPHOKINASE 24 U/L (34-145)
[2025-06-03] MEDS ORDERED: ONDA-282 PO (16:30)
[2025-06-03] MEDS ORDERED: XARE20TA PO (16:30)
[2025-06-03] MEDS ORDERED: METO1TAB33 PO (16:30)
[2025-06-03] MEDS ORDERED: GNP250TA9 PO (16:30)
[2025-06-03] MEDS ORDERED: HOME MED LIST COMPLETE! XX SCH (16:35)
[2025-06-03] MEDS: SUCRALFATE SUSP 1GM/10ML UD PO SCH (16:39)
[2025-06-03] MEDS: ONDANSETRON 4MG/2ML VIAL IV PRN (16:50)
[2025-06-03] MEDS: INSULIN LISPRO (NovoLOG) PER UNIT SC SCH ×2 (17:30→21:00)
[2025-06-03 20:23] LABS: PLATELET COUNT, AUTOMATED 144 10^3/uL (150-450)
[2025-06-03] MEDS: MAGNESIUM OXIDE 400 MG TAB PO SCH (21:00)
[2025-06-03] MEDS: ATORVASTATIN 10 MG TAB PO SCH (21:00)
[2025-06-03] MEDS: CALCIUM/VITAMIN D 500 MG TAB PO SCH (21:00)
[2025-06-03] MEDS: GABAPENTIN 400 MG CAP PO SCH (21:00)
[2025-06-03] MEDS: PANTOPRAZOLE 40MG VIAL IV SCH (21:20)
[2025-06-03] MEDS: ACETAMINOPHEN 325 MG TAB PO PRN (23:55)
[2025-06-03] MEDS: FERROUS SULFATE 325 MG TAB PO SCH (23:55)
[2025-06-04] VITALS (16 sets, daily range): BP systolic 117–170; BP diastolic 58–74; PULSE 63–68; TEMP 97.1–98.4; O2SAT 91–98
[2025-06-04] MEDS ORDERED: PILL CUTTER 1 EACH XX PRN (02:20)
[2025-06-04] MEDS: traMADol 50 MG TAB PO ONE (02:24)
[2025-06-04 02:32] LABS: BASO # 0.0 10^3/uL (0.0-0.2); BASO % 0.5 % (0.0-1.0); EOS # 0.0 10^3/uL (0.0-0.5); EOS % 0.7 % (0.0-3.0); LYMPH # 1.3 10^3/uL (1.5-5.0); LYMPH % 23.7 % (24.0-44.0); MONO # 0.4 10^3/uL (0.0-0.8); MONO % 7.1 % (2.0-8.0); NEUTROPHILS # 3.8 10^3/uL (1.5-8.5); NEUTROPHILS % 67.8 % (36.0-66.0); PLATELET COUNT, AUTOMATED 142 10^3/uL (150-450)
[2025-06-04 03:05] LABS: ALT/SGPT 10.0 U/L (7.0-40); AST/SGOT 19.0 U/L (<34); CALCIUM LEVEL 8.6 MG/DL (8.3-10.6); CARBON DIOXIDE LEVEL 29.0 MMOL/L (20-31); CHLORIDE LEVEL 102.0 MMOL/L (98-107); CREATININE FOR GFR 0.84 MG/DL (0.55-1.30); GLOMERULAR FILTRATION RATE 74.3 (>39); MAGNESIUM LEVEL 1.4 MG/DL (1.8-2.4); POTASSIUM SERUM 3.6 MMOL/L (3.5-5.1); SODIUM LEVEL 143.0 MMOL/L (136-145)
[2025-06-04] MEDS: MAG SULF 1GM/100ML (MAG RUN) 1 GM in IV 1 EA IV SCH (03:28)
[2025-06-04 06:17] LABS: BASO # 0.0 10^3/uL (0.0-0.2); BASO % 0.6 % (0.0-1.0); EOS # 0.0 10^3/uL (0.0-0.5); EOS % 0.8 % (0.0-3.0); LYMPH # 1.1 10^3/uL (1.5-5.0); LYMPH % 20.8 % (24.0-44.0); MONO # 0.4 10^3/uL (0.0-0.8); MONO % 7.5 % (2.0-8.0); NEUTROPHILS # 3.6 10^3/uL (1.5-8.5); NEUTROPHILS % 69.9 % (36.0-66.0); PLATELET COUNT, AUTOMATED 148 10^3/uL (150-450)
[2025-06-04 06:39] LABS: ALT/SGPT 10.0 U/L (7.0-40); AST/SGOT 19.0 U/L (<34); CALCIUM LEVEL 8.4 MG/DL (8.3-10.6); CARBON DIOXIDE LEVEL 30.0 MMOL/L (20-31); CHLORIDE LEVEL 101.0 MMOL/L (98-107); CREATININE FOR GFR 0.79 MG/DL (0.55-1.30); GLOMERULAR FILTRATION RATE 79.9 (>39); MAGNESIUM LEVEL 2.0 MG/DL (1.8-2.4); POTASSIUM SERUM 3.5 MMOL/L (3.5-5.1); SODIUM LEVEL 142.0 MMOL/L (136-145)
[2025-06-04] MEDS: METOPROLOL SUCC. 100 MG *XL* TAB PO SCH (09:00)
[2025-06-04] MEDS ORDERED: ISOVUE-370 76% 100 ML VIAL As Ordered ONE (09:32)
[2025-06-04] MEDS: ONDANSETRON 4MG/2ML VIAL IV ONE (09:45)
[2025-06-04] MEDS: MORPHINE 4 MG/ML 1 ML VIAL IV PRN (13:37)
[2025-06-05 03:19] VITALS: BP 144/69; TEMP 98.9; O2SAT 92
[2025-06-05 05:51] LABS: BASO # 0.0 10^3/uL (0.0-0.2); BASO % 0.6 % (0.0-1.0); EOS # 0.1 10^3/uL (0.0-0.5); EOS % 1.2 % (0.0-3.0); LYMPH # 1.0 10^3/uL (1.5-5.0); LYMPH % 15.7 % (24.0-44.0); MONO # 0.5 10^3/uL (0.0-0.8); MONO % 8.2 % (2.0-8.0); NEUTROPHILS # 4.8 10^3/uL (1.5-8.5); NEUTROPHILS % 73.7 % (36.0-66.0); PLATELET COUNT, AUTOMATED 151 10^3/uL (150-450)
[2025-06-05 06:18] LABS: ALT/SGPT < 9 U/L (7.0-40); AST/SGOT 22 U/L (<34); CALCIUM LEVEL 8.3 MG/DL (8.3-10.6); CARBON DIOXIDE LEVEL 27 MMOL/L (20-31); CHLORIDE LEVEL 101 MMOL/L (98-107); CREATININE FOR GFR 0.75 MG/DL (0.55-1.30); GLOMERULAR FILTRATION RATE 85.1 (>39); MAGNESIUM LEVEL 1.7 MG/DL (1.8-2.4); POTASSIUM SERUM 3.5 MMOL/L (3.5-5.1); SODIUM LEVEL 141 MMOL/L (136-145)
[2025-06-05 08:24] VITALS: BP 128/59; TEMP 97.8; O2SAT 93
[2025-06-05] MEDS: MAG SULF 1GM/100ML (MAG RUN) 1 GM in IV 1 EA IV SCH (08:41)
[2025-06-05] MEDS: CYANOCOBALAMIN 500 MCG TAB PO SCH (09:00)
[2025-06-05] MEDS: ONDANSETRON 4MG/2ML VIAL IV ONE (11:17)
[2025-06-05 12:25] VITALS: BP 130/60; TEMP 97.7; O2SAT 94
[2025-06-05] MEDS: FERRIC CARBOXYMALTOSE INJ 750 MG, VIAL MATE ADAPTER 1 EACH in NS 100 ML IV ONE (13:43)
[2025-06-05] MEDS: MAG SULF 1GM/100ML (MAG RUN) 1 GM in IV 1 EA IV ONE (14:47)
[2025-06-05 16:35] VITALS: BP 127/60; TEMP 97.6; O2SAT 94
[2025-06-05 20:15] VITALS: BP 147/63; TEMP 99.4; O2SAT 92
[2025-06-06 00:22] VITALS: BP 116/60; TEMP 98.1; O2SAT 96
[2025-06-06 04:24] VITALS: BP 130/68; TEMP 97; O2SAT 90
[2025-06-06 05:54] LABS: BASO # 0.0 10^3/uL (0.0-0.2); BASO % 0.7 % (0.0-1.0); EOS # 0.1 10^3/uL (0.0-0.5); EOS % 2.0 % (0.0-3.0); LYMPH # 0.9 10^3/uL (1.5-5.0); LYMPH % 14.2 % (24.0-44.0); MONO # 0.6 10^3/uL (0.0-0.8); MONO % 9.3 % (2.0-8.0); NEUTROPHILS # 4.4 10^3/uL (1.5-8.5); NEUTROPHILS % 73.3 % (36.0-66.0); PLATELET COUNT, AUTOMATED 163 10^3/uL (150-450)
[2025-06-06 06:28] LABS: ALT/SGPT < 9 U/L (7.0-40); AST/SGOT 27 U/L (<34); CALCIUM LEVEL 8.3 MG/DL (8.3-10.6); CARBON DIOXIDE LEVEL 27 MMOL/L (20-31); CHLORIDE LEVEL 101 MMOL/L (98-107); CREATININE FOR GFR 0.71 MG/DL (0.55-1.30); GLOMERULAR FILTRATION RATE > 90.0 (>39); MAGNESIUM LEVEL 1.9 MG/DL (1.8-2.4); POTASSIUM SERUM 3.4 MMOL/L (3.5-5.1); SODIUM LEVEL 139 MMOL/L (136-145)
[2025-06-06 07:41] VITALS: BP 145/64; TEMP 97.2; O2SAT 92
[2025-06-06] MEDS: POTASSIUM CHLORIDE 10MEQ SR TABLET PO ONE (08:36)
[2025-06-06] MEDS: MORPHINE 4 MG/ML 1 ML VIAL IV ONE (12:11)
[2025-06-06 12:21] LABS: C REACTIVE PROTEIN QUANTITATIV 2.58 MG/DL (<1.0)
[2025-06-06 12:25] VITALS: BP 142/65; TEMP 97.4; O2SAT 94
[2025-06-06 16:04] VITALS: BP 140/62; TEMP 97.2; O2SAT 95
[2025-06-06] MEDS: FUROSEMIDE 40 MG/4 ML VIAL IV ONE (16:45)
[2025-06-06 19:37] VITALS: BP 117/55; TEMP 97.4; O2SAT 94
[2025-06-07] VITALS (8 sets, daily range): BP systolic 115–144; BP diastolic 53–66; TEMP 97–99.9; O2SAT 90–95
[2025-06-07 06:18] LABS: ALT/SGPT < 9 U/L (7.0-40); AST/SGOT 23 U/L (<34); CALCIUM LEVEL 8.2 MG/DL (8.3-10.6); CARBON DIOXIDE LEVEL 24 MMOL/L (20-31); CHLORIDE LEVEL 104 MMOL/L (98-107); CREATININE FOR GFR 0.75 MG/DL (0.55-1.30); GLOMERULAR FILTRATION RATE 85.1 (>39); MAGNESIUM LEVEL 1.7 MG/DL (1.8-2.4); POTASSIUM SERUM 3.7 MMOL/L (3.5-5.1); SODIUM LEVEL 141 MMOL/L (136-145)
[2025-06-07 06:41] LABS: BASO # 0.0 10^3/uL (0.0-0.2); BASO % 0.5 % (0.0-1.0); EOS # 0.2 10^3/uL (0.0-0.5); EOS % 3.9 % (0.0-3.0); LYMPH # 1.3 10^3/uL (1.5-5.0); LYMPH % 21.4 % (24.0-44.0); MONO # 0.7 10^3/uL (0.0-0.8); MONO % 11.3 % (2.0-8.0); NEUTROPHILS # 3.7 10^3/uL (1.5-8.5); NEUTROPHILS % 62.6 % (36.0-66.0); PLATELET COUNT, AUTOMATED 175 10^3/uL (150-450)
[2025-06-07] MEDS ORDERED: LIDOCAINE 5% PATCH TD ONE (17:40)
[2025-06-07] MEDS: LIDOCAINE 5% PATCH TD ONE (18:17)
[2025-06-08] VITALS (8 sets, daily range): BP systolic 99–152; BP diastolic 53–82; TEMP 97.8–101.1; O2SAT 90–99
[2025-06-08 05:44] LABS: BASO # 0.0 10^3/uL (0.0-0.2); BASO % 0.6 % (0.0-1.0); EOS # 0.1 10^3/uL (0.0-0.5); EOS % 2.8 % (0.0-3.0); LYMPH # 0.8 10^3/uL (1.5-5.0); LYMPH % 16.6 % (24.0-44.0); MONO # 0.6 10^3/uL (0.0-0.8); MONO % 11.7 % (2.0-8.0); NEUTROPHILS # 3.4 10^3/uL (1.5-8.5); NEUTROPHILS % 68.1 % (36.0-66.0); PLATELET COUNT, AUTOMATED 169 10^3/uL (150-450)
[2025-06-08] MEDS ORDERED: SENNA 8.6 MG TAB PO PRN (06:00)
[2025-06-08 06:24] LABS: ALT/SGPT < 9 U/L (7.0-40); AST/SGOT 17 U/L (<34); CALCIUM LEVEL 8.5 MG/DL (8.3-10.6); CARBON DIOXIDE LEVEL 28 MMOL/L (20-31); CHLORIDE LEVEL 101 MMOL/L (98-107); CREATININE FOR GFR 0.67 MG/DL (0.55-1.30); GLOMERULAR FILTRATION RATE > 90.0 (>39); MAGNESIUM LEVEL 1.7 MG/DL (1.8-2.4); POTASSIUM SERUM 3.6 MMOL/L (3.5-5.1); SODIUM LEVEL 139 MMOL/L (136-145)
[2025-06-08 07:15] LABS: C REACTIVE PROTEIN QUANTITATIV 3.30 MG/DL (<1.0)
[2025-06-08] MEDS: APIXABAN 5 MG TAB PO SCH (09:04)
[2025-06-08] MEDS: MIRALAX *UNIT DOSE* 17 GM PACKET PO SCH (09:05)
[2025-06-08] MEDS: PERCOCET 5MG/325MG TAB PO PRN ×2 (10:50→17:37)
[2025-06-09] VITALS (13 sets, daily range): BP systolic 100–146; BP diastolic 51–71; TEMP 96.9–99.5; O2SAT 91–97
[2025-06-09] MEDS: ALBUTEROL SULFATE 2.5 MG/0.5 ML INH CONCENTRATE NEB SOLN NEB ONE (05:23)
[2025-06-09 06:08] LABS: BASO # 0.0 10^3/uL (0.0-0.2); BASO % 0.5 % (0.0-1.0); EOS # 0.2 10^3/uL (0.0-0.5); EOS % 3.4 % (0.0-3.0); LYMPH # 1.4 10^3/uL (1.5-5.0); LYMPH % 22.1 % (24.0-44.0); MONO # 0.9 10^3/uL (0.0-0.8); MONO % 14.1 % (2.0-8.0); NEUTROPHILS # 3.7 10^3/uL (1.5-8.5); NEUTROPHILS % 59.4 % (36.0-66.0); PLATELET COUNT, AUTOMATED 206 10^3/uL (150-450)
[2025-06-09 06:35] LABS: ALT/SGPT < 9 U/L (7.0-40); AST/SGOT 16 U/L (<34); CALCIUM LEVEL 8.7 MG/DL (8.3-10.6); CARBON DIOXIDE LEVEL 29 MMOL/L (20-31); CHLORIDE LEVEL 100 MMOL/L (98-107); CREATININE FOR GFR 0.78 MG/DL (0.55-1.30); GLOMERULAR FILTRATION RATE 81.2 (>39); MAGNESIUM LEVEL 1.9 MG/DL (1.8-2.4); POTASSIUM SERUM 3.7 MMOL/L (3.5-5.1); SODIUM LEVEL 140 MMOL/L (136-145)
[2025-06-09 12:52] LABS: INR 1.23
[2025-06-09] MEDS: LIDOCAINE 1% MDV 20 ML VIAL SC ONE (15:58)
[2025-06-09 16:26] LABS: CRYSTALS, BODY FLUID CA PYROPHOSPHATE (NONE SEEN); SOURCE, BODY FLUID CRYSTALS RT KNEE
[2025-06-09 16:35] LABS: SOURCE, BODY FLUID RT KNEE
[2025-06-10 04:00] VITALS: BP 154/72; TEMP 98.6; O2SAT 92
[2025-06-10 05:58] LABS: BASO # 0.0 10^3/uL (0.0-0.2); BASO % 0.6 % (0.0-1.0); EOS # 0.1 10^3/uL (0.0-0.5); EOS % 2.8 % (0.0-3.0); LYMPH # 0.8 10^3/uL (1.5-5.0); LYMPH % 17.9 % (24.0-44.0); MONO # 0.5 10^3/uL (0.0-0.8); MONO % 10.7 % (2.0-8.0); NEUTROPHILS # 3.2 10^3/uL (1.5-8.5); NEUTROPHILS % 67.4 % (36.0-66.0); PLATELET COUNT, AUTOMATED 177 10^3/uL (150-450)
[2025-06-10 06:27] LABS: ALT/SGPT 10 U/L (7.0-40); AST/SGOT 22 U/L (<34); CALCIUM LEVEL 8.6 MG/DL (8.3-10.6); CARBON DIOXIDE LEVEL 28 MMOL/L (20-31); CHLORIDE LEVEL 103 MMOL/L (98-107); CREATININE FOR GFR 0.68 MG/DL (0.55-1.30); GLOMERULAR FILTRATION RATE > 90.0 (>39); MAGNESIUM LEVEL 1.8 MG/DL (1.8-2.4); POTASSIUM SERUM 4.1 MMOL/L (3.5-5.1); SODIUM LEVEL 141 MMOL/L (136-145)
[2025-06-10] MEDS: predniSONE 20 MG TAB PO ONE (07:36)
[2025-06-10 07:46] VITALS: BP 142/62; TEMP 97.4; O2SAT 96
[2025-06-10 08:55] VITALS: BP 142/62
[2025-06-10] MEDS ORDERED: PRED20TA PO (10:55)
[2025-06-10] MEDS ORDERED: ELIQ5TAB PO (10:55)
[2025-06-10] MEDS ORDERED: SUCR1SS PO (10:55)
[2025-06-11] MEDS ORDERED: predniSONE 20 MG TAB PO SCH (09:00)
== END 2025-06-10 15:06 | disposition home health service (06) | DRG 811 ==
LOC: EDBD 09:17 → M ED 09:17 → M ED INP 12:32 → M PCU 14:44
PROVIDERS: ADMIT Internal Medicine; ATTEND Internal Medicine
PROC: 30233N1 Transfusion of Nonautologous Red Blood Cells into Peripheral Vein, Percutaneous Approach (ICD-10-PCS; principal; 2025-06-03)
PROC: 0S9C3ZZ Drainage of Right Knee Joint, Percutaneous Approach (ICD-10-PCS; 2025-06-09)
DX: D62 Acute posthemorrhagic anemia (principal); K29.71 Gastritis, unspecified, with bleeding; K68.3 Retroperitoneal hematoma; I50.32 Chronic diastolic (congestive) heart failure; K50.90 Crohn's disease, unspecified, without complications; I48.0 Paroxysmal atrial fibrillation; I11.0 Hypertensive heart disease with heart failure; J44.9 Chronic obstructive pulmonary disease, unspecified; J45.909 Unspecified asthma, uncomplicated; E11.9 Type 2 diabetes mellitus without complications; E83.42 Hypomagnesemia; E78.5 Hyperlipidemia, unspecified; D50.9 Iron deficiency anemia, unspecified; M25.561 Pain in right knee; K75.81 Nonalcoholic steatohepatitis (NASH); R07.89 Other chest pain; N39.3 Stress incontinence (female) (male); M19.90 Unspecified osteoarthritis, unspecified site; M81.0 Age-related osteoporosis without current pathological fracture; G89.29 Other chronic pain; Z85.810 Personal history of malignant neoplasm of tongue; Z98.41 Cataract extraction status, right eye; Z98.42 Cataract extraction status, left eye; Z90.49 Acquired absence of other specified parts of digestive tract; Z85.118 Personal history of other malignant neoplasm of bronchus and lung; Z90.2 Acquired absence of lung [part of]; Z79.01 Long term (current) use of anticoagulants; Z79.84 Long term (current) use of oral hypoglycemic drugs; Z79.899 Other long term (current) drug therapy; Z88.0 Allergy status to penicillin; Z88.8 Allergy status to other drugs, medicaments and biological substances; Z91.018 Allergy to other foods

== ENCOUNTER → 2025-07-18 | Outpatient (CLI) | payer MEDICARE, MEDICAID ==
[~2025-07-18] MED LIST changes: +ELIQ5TAB PO; +FURO20TA2 PO; +GNP250TA9 PO; +METO1TAB33 PO; +TORS20TA2
[2025-07-18 13:59] LABS: APPEARANCE, URINE HAZY (CLEAR); BACTERIA, URINE AUTO NEGATIVE (NEGATIVE); BILIRUBIN, URINE AUTO NEGATIVE (NEGATIVE); BLOOD, URINE BLOOD NEGATIVE (NEGATIVE); GLUCOSE, URINE (UA) AUTO 2+ mg/dL (NEGATIVE); KETONE, URINE AUTO NEGATIVE (NEGATIVE); LEUKOCYTE ESTERASE, URINE AUTO 2+ (NEGATIVE); MUCUS, URINE SMALL (NEGATIVE); NITRITE, URINE AUTO NEGATIVE (NEGATIVE); PROTEIN, URINE AUTO 1+ mg/dL (NEGATIVE); RBC, URINE AUTO 2 /HPF (0-3); SPECIFIC GRAVITY URINE AUTO 1.019 (1.002-1.035); SQUAMOUS EPITHELIAL CELL UR AU 10 /HPF (0-6); UROBILINOGEN, URINE AUTO 0.2 mg/dL (0.0-2.0); WBC, URINE AUTO 4 /HPF (0-3)
[2025-07-18 14:13] LABS: ALT/SGPT 14 U/L (7.0-40); AST/SGOT 25 U/L (<34); CALCIUM LEVEL 9.8 MG/DL (8.3-10.6); CARBON DIOXIDE LEVEL 31 MMOL/L (20-31); CHLORIDE LEVEL 99 MMOL/L (98-107); CREATININE FOR GFR 0.68 MG/DL (0.55-1.30); GLOMERULAR FILTRATION RATE > 90.0 (>39); IRON (FE) 90 UG/DL (50-170); PERCENT SATURATION 29.7 % (13.2-45.0); POTASSIUM SERUM 4.0 MMOL/L (3.5-5.1); SODIUM LEVEL 141 MMOL/L (136-145)
[2025-07-18 14:14] LABS: VITAMIN B12 LEVEL 612 PG/ML (211-911)
[2025-07-18 14:22] LABS: BASO # 0.0 10^3/uL (0.0-0.2); BASO % 1.0 % (0.0-1.0); EOS # 0.1 10^3/uL (0.0-0.5); EOS % 2.2 % (0.0-3.0); LYMPH # 0.9 10^3/uL (1.5-5.0); LYMPH % 22.7 % (24.0-44.0); MONO # 0.3 10^3/uL (0.0-0.8); MONO % 8.2 % (2.0-8.0); NEUTROPHILS # 2.7 10^3/uL (1.5-8.5); NEUTROPHILS % 65.4 % (36.0-66.0); PLATELET COUNT, AUTOMATED 119 10^3/uL (150-450)
== END ==
LOC: M LABDRAWC 07:44
DX: D53.9 Nutritional anemia, unspecified (principal); E11.69 Type 2 diabetes mellitus with other specified complication; E83.42 Hypomagnesemia

== ENCOUNTER → 2025-07-18 | Outpatient (CLI) | payer MEDICARE, MEDICAID ==
[2025-07-18 14:09] LABS: CALCIUM LEVEL 9.3 MG/DL (8.3-10.6); CARBON DIOXIDE LEVEL 30 MMOL/L (20-31); CHLORIDE LEVEL 101 MMOL/L (98-107); CREATININE FOR GFR 0.66 MG/DL (0.55-1.30); GLOMERULAR FILTRATION RATE > 90.0 (>39); MAGNESIUM LEVEL 1.7 MG/DL (1.8-2.4); POTASSIUM SERUM 4.1 MMOL/L (3.5-5.1); SODIUM LEVEL 144 MMOL/L (136-145)
[2025-07-18 14:43] LABS: ESTIMATED AVERAGE GLUCOSE 128.0 MG/DL (60-110)
== END ==
LOC: M LABDRAWC 07:53
PROVIDERS: ATTEND Nurse Practitioner Family
DX: E11.69 Type 2 diabetes mellitus with other specified complication (principal); E83.42 Hypomagnesemia

== ENCOUNTER → 2025-08-15 | Outpatient (REF) | payer MEDICARE, MEDICAID ==
[2025-08-15 13:41] LABS: APPEARANCE, URINE CLEAR (CLEAR); BACTERIA, URINE AUTO NEGATIVE (NEGATIVE); BILIRUBIN, URINE AUTO NEGATIVE (NEGATIVE); BLOOD, URINE BLOOD NEGATIVE (NEGATIVE); GLUCOSE, URINE (UA) AUTO 3+ mg/dL (NEGATIVE); KETONE, URINE AUTO NEGATIVE (NEGATIVE); LEUKOCYTE ESTERASE, URINE AUTO NEGATIVE (NEGATIVE); MUCUS, URINE SMALL (NEGATIVE); NITRITE, URINE AUTO NEGATIVE (NEGATIVE); PROTEIN, URINE AUTO NEGATIVE (NEGATIVE); RBC, URINE AUTO 2 /HPF (0-3); SPECIFIC GRAVITY URINE AUTO 1.005 (1.002-1.035); SQUAMOUS EPITHELIAL CELL UR AU 0 /HPF (0-6); UROBILINOGEN, URINE AUTO 0.2 mg/dL (0.0-2.0); WBC, URINE AUTO 1 /HPF (0-3)
== END ==
LOC: M SMT 12:58
PROVIDERS: ATTEND Physician Assistant
DX: R31.21 Asymptomatic microscopic hematuria (principal)